=== PATIENT | male | born 1960 | race Caucasian/White ===

== ENCOUNTER 2022-10-09 09:57 | Outpatient (OUT) | payer MEDICAID, SELFPAY | END 2022-10-09 09:58 | disposition home or self-care (01) | PROVIDERS: PCP Family Medicine | DX: Z01.818 Encounter for other preprocedural examination (principal); K42.9 Umbilical hernia without obstruction or gangrene ==

== ENCOUNTER 2022-10-11 10:12 | Day surgery (SDC) | payer MEDICARE, MEDICAID, SELFPAY ==
[2022-10-09 10:27] VITALS: BP 148/103; PULSE 96; RESP 20; TEMP 36.5; O2SAT 95; BMI 24.6
[2022-10-11 10:34] VITALS: BMI 24.5
[2022-10-11 10:43] VITALS: BP 178/97; PULSE 74; RESP 16; TEMP 36.6; O2SAT 98
[2022-10-11] MEDS: LACTATED RINGER'S SOLUTION 1,000 ML 50 ML IV (10:44)
--- NOTE | 2022-10-11 11:36 | PC.NURSE ---
Dr. Martinez was in to see patient and address elevated B/P. After lengthy discussion amongst Dr. Martinez, patient and Dr. Alvarez it was decided to have patient see a PCP prior to surgery to better control his blood pressure. Dr. Alvarez spoke to Dr. Carrizales who agreed to see patient next week as a new patient. Directions and phone number given to patient, as well as directive on what the next steps would be. He is aware that he will need to call Dr. Alvarez's office once seen and treated by Dr. Carrizales in order to get rescheduled.
== END 2022-10-11 11:36 ==
PROVIDERS: PCP Family Medicine; Visit Provider Surgery
PROC: (CPT 49591; principal; 2022-10-11 12:25)
DX: K42.9 Umbilical hernia without obstruction or gangrene (principal); Z53.8 Procedure and treatment not carried out for other reasons; I10 Essential (primary) hypertension; Z79.899 Other long term (current) drug therapy; F17.210 Nicotine dependence, cigarettes, uncomplicated
CPT/HCPCS: 49591

== ENCOUNTER 2022-11-05 15:04 | Outpatient (OUT) | payer MEDICAID, SELFPAY ==
[2022-11-05 11:20] LABS: Chol HDL Ratio 2.8; Cholesterol 219 mg/dL (<=200); HDL Cholesterol 77 mg/dL (40-60); Triglycerides 95 mg/dL (<=150)
[2022-11-05 12:18] LABS: Estimated Average Glucose 120 mg/dL; Glycohemoglobin A1C 5.8 % (4.5-6.2)
== END 2022-11-05 15:05 | disposition home or self-care (01) ==
LOC: LAB 11-06 15:05
PROVIDERS: PCP Internal Medicine; Visit Provider Internal Medicine
DX: Z13.1 Encounter for screening for diabetes mellitus (principal); Z13.220 Encounter for screening for lipoid disorders
CPT/HCPCS: 36415; 80061; 83036

== ENCOUNTER 2022-11-22 10:01 | Outpatient (OUT) | payer MEDICARE, MEDICAID, SELFPAY ==
--- NOTE | 2022-11-22 10:41 | ECG_ITS ---
[facility] Test Date: 2022-11-22 Pat Name: Olu Arzate Department: Room: - Gender: Male Hotel Room Attendant: : 1960 Requested By: Order Number: [id number] Reading MD: JAEL MAC Measurements Intervals Elmo Rate: 80 P: 54 WV: 167 QRS: 41 QRSD: 94 T: 63 QT: 334 QTc: 387 Interpretive Statements SINUS RHYTHM POSSIBLE RIGHT VENTRICULAR CONDUCTION DELAY [RSR (QR) IN V1/V2] No previous ECG available for comparison Electronically Signed On 11-24-2022 18:22:04 EDT by JAEL MAC
[2022-11-22 12:36] LABS: Anion Gap 13.4; BUN Creatinine Ratio 16.4; Calcium 9.6 mg/dL (8.5-10.1); Carbon Dioxide 27.4 mmol/L (21.0-32.0); Chloride 103 mmol/L (98-107); Estimated GFR (African America >60 (>=60); Estimated GFR (Non-African Ame >60 (>=60); Glucose 99 mg/dL (74-106); Potassium 3.8 mmol/L (3.5-5.1); Sodium 140 mmol/L (136-145)
== END 2022-11-22 10:02 | disposition home or self-care (01) ==
LOC: PST 10:01
PROVIDERS: PCP Internal Medicine; Visit Provider Surgery
DX: Z01.810 Encounter for preprocedural cardiovascular examination (principal); Z01.812 Encounter for preprocedural laboratory examination; K42.9 Umbilical hernia without obstruction or gangrene
CPT/HCPCS: 36415; 80048; 93005

== ENCOUNTER 2022-12-03 07:24 | Day surgery (SDC) | payer MEDICARE, MEDICAID, SELFPAY ==
[2022-11-22 10:52] VITALS: BP 126/91; PULSE 99; RESP 20; TEMP 36.5; O2SAT 94; BMI 24.5
[2022-12-03 07:43] VITALS: BP 138/98; PULSE 100; RESP 18; TEMP 36.4; O2SAT 96; BMI 24.1
[2022-12-03] MEDS: LACTATED RINGER'S SOLUTION 1,000 ML 50 ML IV (07:49)
[2022-12-03] MEDS: CEFAZOLIN SODIUM/DEXTROSE,ISO 2 GM/50 ML PIGGYBACK IV (08:20)
[2022-12-03] MEDS: BUPIVACAINE HCL 0.25% PF 25 MG/10 ML VIAL INJ (08:53)
[2022-12-03] MEDS: BUPIVACAINE LIPOSOME/PF 266 MG/13.3 ML VIAL INJ (08:53)
[2022-12-03] MEDS: BUPIVACAINE HCL 0.5% PF 50 MG/10 ML VIAL 20 ML INJ (09:20)
[2022-12-03 10:19] VITALS: BP 153/95; PULSE 84; RESP 13; TEMP 37.2; O2SAT 98
[2022-12-03] MEDS: HYDROCODONE/ACETAMINOPHEN 5-325 MG TABLET 1 TAB PO (10:28)
--- NOTE | 2022-12-03 10:31 | PM.GSPRC ---
Date of procedure: 12/03/22 Indications for Procedure: Patient is a 62-year-old male who was recently evaluated for a symptomatic umbilical hernia. With these findings robotic repair of the hernia with mesh was recommended. The risks benefits options and potential complications of the procedure were discussed in detail with them and they agreed to proceed and consent was signed. Pre-op diagnosis: Umbilical hernia Post-op diagnosis: same Procedure: Robotic repair of umbilical hernia with mesh Anesthesia: STIVENA Surgeon: Himanshu Alvarez Procedure Summary: The patient was brought to the operating room placed in the supine position. Gen. anesthesia was induced the patient was intubated. The abdomen was prepped and draped as a sterile fashion. Preoperative IV antibiotics were given. A site in the left upper quadrant was infiltrated with half percent Marcaine. A small incision was made. A 12 mm port was placed through this incision and advanced into the peritoneal cavity under laparoscopic guidance. The abdomen was then insufflated to 15 mmHg of carbon dioxide. The camera was introduced and safe port site entry was confirmed. Two additional 8 mm robotic ports were placed in the left lateral abdomen and the left lower quadrant following local anesthesia under direct visualization. An additional 8 mm robotic port was threaded through the 12 mm port. At this point the da Galina XI was brought to the field. All ports were docked and instruments introduced in standard fashion. At this point I left the operating table and attended the surgeon's console. The fascial defect was visualized. It was #cm in diameter. Some preperitoneal fat surrounding the defect was cleared circumferentially to allow flat mesh placement using blunt dissection as well as electrocautery. Next the fascial defect was closed with a running suture of 0 - V LOC. A 9 cm round Symbotex mesh was brought onto the field. An 0 Vicryl suture was placed in the center the mesh on the side to be up against the abdominal wall. The mesh was rolled and placed through a port into the peritoneal cavity. A small incision was made near the umbilicus and a suture grasper placed through this into the peritoneal cavity. The suture placed in the mesh was then grasped and pulled externally bringing the mesh to the anterior dome wall. The mesh was then secured to the anterior abdominal wall with 2 running sutures of 2-0 V LOC around the periphery of the mesh.? Following this secure mesh placement was noted with excellent coverage of the prior hernia defect. Hemostasis was also noted. The needles were then removed from the peritoneal cavity. The abdomen was then desufflated and the ports removed. After undocking of the robot. Skin incisions were closed with subcuticular sutures of 4-0 Vicryl. Sterile dressings were applied. Sponge needle and instrument counts were correct at the end of the procedure. The patient tolerated the procedure well and was transferred to the recovery area in stable condition. Estimated blood loss (mL): 3 Specimens: None Complications: No
[2022-12-03 10:45] VITALS: BP 121/80; PULSE 82; RESP 19; O2SAT 93
[2022-12-03 11:21] VITALS: BP 123/82; PULSE 96; RESP 20; O2SAT 92
== END 2022-12-03 11:35 | disposition home or self-care (01) ==
PROVIDERS: PCP Internal Medicine; Visit Provider Surgery
PROC: (CPT 00830; principal; 2022-12-03 08:30)
DX: K42.9 Umbilical hernia without obstruction or gangrene (principal); Z79.899 Other long term (current) drug therapy; F17.210 Nicotine dependence, cigarettes, uncomplicated; F12.90 Cannabis use, unspecified, uncomplicated
CPT/HCPCS: 00830; 49591; 36415; C1781; J2704

== ENCOUNTER 2023-07-19 16:34 | Emergency (ER) | payer MEDICARE, MEDICAID, SELFPAY ==
[2023-07-19 16:40] VITALS: BP 155/93; PULSE 112; RESP 18; TEMP 36.8; O2SAT 96; BMI 22.9
--- NOTE | 2023-07-19 16:44 | CT_ITS ---
[address] [address] Patient Name: CIPRIANO CASTRO MRN: [id number] date: 1960 Sex: M Assigned Patient Location: ED.MAIN Current Patient Location: ED.MAIN Accession/Order Number: [id number] Exam Date: 07/19/2023 18:22 Report Date: 07/19/2023 19:09 At the request of: ANKUSH DUVAL Procedure: CT abdomen pelvis w con EXAMINATION: CT abdomen pelvis w con, 07/19/2023 3:22 PM PDT HISTORY: Abdominal pain COMPARISON: 09/20/2022 TECHNIQUE: CT scan of the abdomen and pelvis was performed with IV contrast. CT dose reduction technique was used, including Automated Exposure Control. FINDINGS: Lung: No significant finding. Liver: No significant finding. Gallbladder: No significant finding. Spleen: No significant finding. Pancreas: No significant finding. Adrenal glands: No significant finding. Kidneys, ureters and bladder: Simple right renal cyst. No hydronephrosis. Mild circumferential bladder wall thickening. Bowel: Severe bowel wall edema, ulceration and evidence of perforation involving the sigmoid colon. Adjacent pericolonic air and fluid collection measuring 5.5 x 4 x 5.2 cm. Prominent stranding involving the mesentery surrounding the sigmoid colon. Remaining sigmoid colon is also edematous in appearance. Inflammatory stranding involves the left distal ureter and bladder wall. Focal peritonitis is also noted. Normal appendix. Peritoneum/retroperitoneum: As above. Lymph nodes: No significant finding. Vessels: No significant finding. Body wall: No significant finding. Reproductive: Prostatomegaly. Bones: No significant finding. CT/CT abdomen pelvis w con IMPRESSION: Perforation of the sigmoid colon with pericolonic wall abscess measuring 5.5 x 4 x 5.2 cm. The entire sigmoid colon is moderately edematous and there are moderate to severe pericolonic inflammatory changes. Focal peritonitis. Underlying ulcerative mass not excluded. Likely secondary mild left ureteritis and cystitis. Electronically authenticated by: MARLINE SAMUEL Date: 07/19/2023 19:09
--- NOTE | 2023-07-19 16:53 | ED_ITS ---
Documented by User: MARCO A Becerra 07/19/23 17:53 HPI - General Adult General Chief complaint: Abdominal Pain Stated complaint: abdominal pain Time Seen by Provider: 07/19/23 16:38 Source: patient Mode of arrival: walk-in Limitations: no limitations History of Present Illness HPI narrative: Patient is a 63-year-old male who presents to the emergency department for increasing right lower quadrant pain throughout the day today. He has had a previous hernia repair, he had a bilateral inguinal and ventral hernia repair last year at this facility. He states he has pain to the bilateral inguinal surgical sites chronically. He also has a history of diverticulitis although he has never needed surgery for this before. Today he has had no fevers. He has had mild nausea but no vomiting. He has had stools 2-3 times a day for the last several days. He states for several months he has had ongoing issues with intermittent pain to the lower abdomen. He states today the pain seems to radiate to the right thigh. No medications taken prior to arrival. Related Data Home Medications ?Medication ?Instructions ?Recorded ?Confirmed amlodipine 10 mg tablet 10 mg PO DAILY 11/22/22 07/19/23 Allergies Allergy/AdvReac Type Severity Reaction Status Date / Time No Known Drug Allergies Allergy Verified 12/03/22 07:50 Review of Systems ROS Constitutional Denies: fever or chills Ears, nose, mouth, and throat Denies: throat pain or nasal congestion Cardiovascular Denies: chest pain Respiratory Denies: shortness of breath Gastrointestinal Reports: abdominal pain, nausea and diarrhea; Denies: vomiting Genitourinary Denies: painful urination Musculoskeletal Denies: back pain or neck pain Integumentary/Breast Denies: rash Endocrine Denies: excessive urination Hematologic/Lymphatic Denies: easy bruising or easy bleeding [facility] Medical History (Updated 07/19/23 @ 17:53 by MARCO A Becerra) Hypertension ?I10 - Essential (primary) hypertension (ICD-10) Hemorrhoids ?K64.9 - Unspecified hemorrhoids (ICD-10) Nocturia ?R35.1 - Nocturia (ICD-10) Rectal bleeding ?K62.5 - Hemorrhage of anus and rectum (ICD-10) Neck pain ?M54.2 - Cervicalgia (ICD-10) DDD (degenerative disc disease) Back pain ?M54.9 - Dorsalgia, unspecified (ICD-10) Bronchitis ?J40 - Bronchitis, not specified as acute or chronic (ICD-10) Heartburn ?R12 - Heartburn (ICD-10) Umbilical hernia ?K42.9 - Umbilical hernia without obstruction or gangrene (ICD-10) Surgical History (Updated 11/22/22 @ 10:23 by Haley Rai RN) History of colonoscopy ?Z98.890 - Other specified postprocedural states (ICD-10) History of hernia repair ?Z98.890 - Other specified postprocedural states (ICD-10) ?Z87.19 - Personal history of other diseases of the digestive system (ICD-10) Family History (Updated 10/09/22 @ 10:31 by Allison Newsome NP) Other Family history of diabetes mellitus Social History Within the past year, how often did you have a drink containing alcohol: never Score interpretation: A score less than 4 is consistent with normal alcohol consumption. Non-prescribed substance use: cannabis (any form) Highest level of school completed/degree received: high school graduate Exam Narrative Exam Narrative: Gen.: Awake, alert, in no distress Head: Normocephalic, atraumatic ENT: Moist mucous membranes Respiratory: No respiratory distress, lungs clear bilaterally Cardio: Regular rate and rhythm Gastrointestinal: Abdomen is soft, nondistended and nontender to palpation; Umbilical incision and bilateral inguinal incisions are well-healed, no raised or bulging areas palpated. No McBurney's point tenderness on exam Extremities: Moves extremities equally Psych: Normal mood and affect Neuro: No focal neuro deficit Skin: Warm, dry, intact Constitutional Vital Signs, click to edit/add: Last Vital Signs Temp 98.2 F 07/19/23 16:40 Pulse 112 H 07/19/23 16:40 Resp 18 07/19/23 16:40 BP 155/93 H 07/19/23 16:40 Pulse Ox 96 07/19/23 16:40 O2 Del Method Room Air 07/19/23 16:40 Course Vital Signs Vital signs: Vital Signs Temperature 98.2 F 07/19/23 16:40 Pulse Rate 112 H 07/19/23 16:40 Respiratory Rate 18 07/19/23 16:40 Blood Pressure 155/93 H 07/19/23 16:40 Pulse Oximetry 96 07/19/23 16:40 Oxygen Delivery Method Room Air 07/19/23 16:40 Temperature 98.2 F 07/19/23 16:40 Pulse Rate 112 H 07/19/23 16:40 Respiratory Rate 18 07/19/23 16:40 Blood Pressure 155/93 H 07/19/23 16:40 Pulse Oximetry 96 07/19/23 16:40 Oxygen Delivery Method Room Air 07/19/23 16:40 Medical Decision Making MDM Narrative Medical decision making narrative: 1800: Patient given IV fluids, Levsin, Toradol, Zofran. CT was ordered with IV and oral contrast. Labs show leukocytosis but no other significant abnormalities. Urine specimen is unremarkable. Case is turned over to attending physician at this time for disposition. Medical Records Medical records reviewed: Yes I reviewed the patient's medical records Lab Data Lab results reviewed: Yes I reviewed the patient's lab results Labs: Lab Results 07/19/23 07/19/23 Range/Units 16:48 16:54 WBC 19.1 H (4.0-11.0) 10^3/uL RBC 5.31 (4.70-6.10) 10^6/uL Hgb 16.5 (14.0-18.0) g/dL Hct 50.1 (42.0-54.0) % MCV 94.4 H (80.0-94.0) fL MCH 31.1 (25.9-34.0) pg MCHC 32.9 (29.9-35.2) g/dL RDW 13.6 (11.0-15.0) % Plt Count 280 (150-450) 10^3/uL MPV 10.1 (9.5-13.5) fL Seg Neuts % (Manual) 80.0 Lymphocytes % (Manual) 10.0 L (20.5-60.0) % Monocytes % (Manual) 10.0 (1.7-12.0) % Eosinophils % (Manual) 0.0 L (0.9-7.0) % Basophils % (Manual) 0.0 L (0.2-2.0) % Neutrophils # (Manual) 15.28 H (1.4-6.5) 10^3/uL Lymphocytes # (Manual) 1.91 (1.20-3.80) 10^3/uL Monocytes # (Manual) 1.91 H (0.30-0.80) 10^3/uL Eosinophils # (Manual) 0.00 (0.00-0.70) 10^3/uL Basophils # (Manual) 0.00 (0.00-0.10) 10^3/uL Sodium 139 (136-145) mmol/L Potassium 3.5 (3.5-5.1) mmol/L Chloride 100 (98-107) mmol/L Carbon Dioxide 26.0 (21.0-32.0) mmol/L Anion Gap 16.5 BUN 18.0 (7.0-18.0) mg/dL Creatinine 1.20 (0.70-1.30) mg/dL Est GFR ( Amer) >60 (>=60) Est GFR (Non-Af Amer) >60 (>=60) BUN/Creatinine Ratio 15.0 Glucose 159 H (74-106) mg/dL Lactate 1.8 (0.4-2.0) mmol/L Calcium 9.6 (8.5-10.1) mg/dL Total Bilirubin 0.4 (0.2-1.0) mg/dL AST 16 (15-37) U/L ALT 26 (16-63) U/L Alkaline Phosphatase 90 (46-116) U/L Total Protein 7.5 (6.4-8.2) g/dL Albumin 3.8 (3.4-5.0) g/dL Globulin 3.7 g/dL Albumin/Globulin Ratio 1.0 Lipase 47.0 (16.0-77.0) U/L Urine Color Lt. yellow (YELLOW) Urine Clarity Clear (CLEAR) Urine pH 5.5 (5.0-9.0) Ur Specific [employer] 1.025 (1.005-1.025) Urine Protein Negative (NEG/TRACE) mg/dL Urine Glucose (UA) 100 A (NEGATIVE) mg/dL Urine Ketones Negative (NEGATIVE) mg/dL Urine Occult Blood Moderate A (NEGATIVE) Urine Nitrite Negative (NEGATIVE) Urine Bilirubin Negative (NEGATIVE) Urine Urobilinogen 0.2 (0.2-1.0) EU/dL Ur Leukocyte Esterase Negative (NEGATIVE) Urine RBC 2-5 A (0-2) #/HPF Urine WBC None seen (NONE SEEN) #/HPF Ur Squamous Epith Cells Rare (NONE/RARE) #/LPF Urine Crystals None seen (None Seen) #/HPF Urine Bacteria Trace A (NONE SEEN) #/HPF Urine Casts None seen (NONE SEEN) #/LPF Urine Mucus Trace A (NONE SEEN) Ur Culture Indicated? No Discharge Plan Discharge Stand Alone Forms: Portal Instructions Chief Complaint: Abdominal Pain Clinical Impression: Abdominal pain Patient Disposition: Still a Patient Prescriptions / Home Meds: No Action amlodipine 10 mg tablet 10 mg PO DAILY Print Language: Upper Sorbian Referrals: Shaikh Manrique MD [Primary Care Provider] - 1 week Documented by User: Dandre Busch 07/19/23 19:04 HPI - General Adult General Chief complaint: Abdominal Pain Stated complaint: abdominal pain Time Seen by Provider: 07/19/23 16:38 Related Data Home Medications ?Medication ?Instructions ?Recorded ?Confirmed amlodipine 10 mg tablet 10 mg PO DAILY 11/22/22 07/19/23 Allergies Allergy/AdvReac Type Severity Reaction Status Date / Time No Known Drug Allergies Allergy Verified 12/03/22 07:50 [facility] Medical History (Updated 07/19/23 @ 17:53 by MARCO A Becerra) Hypertension ?I10 - Essential (primary) hypertension (ICD-10) Hemorrhoids ?K64.9 - Unspecified hemorrhoids (ICD-10) Nocturia ?R35.1 - Nocturia (ICD-10) Rectal bleeding ?K62.5 - Hemorrhage of anus and rectum (ICD-10) Neck pain ?M54.2 - Cervicalgia (ICD-10) DDD (degenerative disc disease) Back pain ?M54.9 - Dorsalgia, unspecified (ICD-10) Bronchitis ?J40 - Bronchitis, not specified as acute or chronic (ICD-10) Heartburn ?R12 - Heartburn (ICD-10) Umbilical hernia ?K42.9 - Umbilical hernia without obstruction or gangrene (ICD-10) Surgical History (Updated 11/22/22 @ 10:23 by Haley Rai RN) History of colonoscopy ?Z98.890 - Other specified postprocedural states (ICD-10) History of hernia repair ?Z98.890 - Other specified postprocedural states (ICD-10) ?Z87.19 - Personal history of other diseases of the digestive system (ICD-10) Family History (Updated 10/09/22 @ 10:31 by Allison Newsome NP) Other Family history of diabetes mellitus Social History Within the past year, how often did you have a drink containing alcohol: never Score interpretation: A score less than 4 is consistent with normal alcohol consumption. Non-prescribed substance use: cannabis (any form) Highest level of school completed/degree received: high school graduate Exam Constitutional Vital Signs, click to edit/add: Last Vital Signs Temp 98.2 F 07/19/23 16:40 Pulse 112 H 07/19/23 16:40 Resp 18 07/19/23 16:40 BP 155/93 H 07/19/23 16:40 Pulse Ox 96 07/19/23 16:40 O2 Del Method Room Air 07/19/23 16:40 Course Vital Signs Vital signs: Vital Signs Temperature 98.2 F 07/19/23 16:40 Pulse Rate 112 H 07/19/23 16:40 Respiratory Rate 18 07/19/23 16:40 Blood Pressure 155/93 H 07/19/23 16:40 Pulse Oximetry 96 07/19/23 16:40 Oxygen Delivery Method Room Air 07/19/23 16:40 Temperature 98.2 F 07/19/23 16:40 Pulse Rate 112 H 07/19/23 16:40 Respiratory Rate 18 07/19/23 16:40 Blood Pressure 155/93 H 07/19/23 16:40 Pulse Oximetry 96 07/19/23 16:40 Oxygen Delivery Method Room Air 07/19/23 16:40 Medical Decision Making MDM Narrative Medical decision making narrative: 1800: Patient given IV fluids, Levsin, Toradol, Zofran. CT was ordered with IV and oral contrast. Labs show leukocytosis but no other significant abnormalities. Urine specimen is unremarkable. Case is turned over to attending physician at this time for disposition. Dr Kaba and I discussed this patient's case. I suspect that the patient has diverticulitis and will be able to be discharged home with antibiotics - but Dr Kaba will meet with the patient after CT reported and determine final disposition. Lab Data Labs: Lab Results 07/19/23 07/19/23 Range/Units 16:48 16:54 WBC 19.1 H (4.0-11.0) 10^3/uL RBC 5.31 (4.70-6.10) 10^6/uL Hgb 16.5 (14.0-18.0) g/dL Hct 50.1 (42.0-54.0) % MCV 94.4 H (80.0-94.0) fL MCH 31.1 (25.9-34.0) pg MCHC 32.9 (29.9-35.2) g/dL RDW 13.6 (11.0-15.0) % Plt Count 280 (150-450) 10^3/uL MPV 10.1 (9.5-13.5) fL Seg Neuts % (Manual) 80.0 Lymphocytes % (Manual) 10.0 L (20.5-60.0) % Monocytes % (Manual) 10.0 (1.7-12.0) % Eosinophils % (Manual) 0.0 L (0.9-7.0) % Basophils % (Manual) 0.0 L (0.2-2.0) % Neutrophils # (Manual) 15.28 H (1.4-6.5) 10^3/uL Lymphocytes # (Manual) 1.91 (1.20-3.80) 10^3/uL Monocytes # (Manual) 1.91 H (0.30-0.80) 10^3/uL Eosinophils # (Manual) 0.00 (0.00-0.70) 10^3/uL Basophils # (Manual) 0.00 (0.00-0.10) 10^3/uL Sodium 139 (136-145) mmol/L Potassium 3.5 (3.5-5.1) mmol/L Chloride 100 (98-107) mmol/L Carbon Dioxide 26.0 (21.0-32.0) mmol/L Anion Gap 16.5 BUN 18.0 (7.0-18.0) mg/dL Creatinine 1.20 (0.70-1.30) mg/dL Est GFR ( Amer) >60 (>=60) Est GFR (Non-Af Amer) >60 (>=60) BUN/Creatinine Ratio 15.0 Glucose 159 H (74-106) mg/dL Lactate 1.8 (0.4-2.0) mmol/L Calcium 9.6 (8.5-10.1) mg/dL Total Bilirubin 0.4 (0.2-1.0) mg/dL AST 16 (15-37) U/L ALT 26 (16-63) U/L Alkaline Phosphatase 90 (46-116) U/L Total Protein 7.5 (6.4-8.2) g/dL Albumin 3.8 (3.4-5.0) g/dL Globulin 3.7 g/dL Albumin/Globulin Ratio 1.0 Lipase 47.0 (16.0-77.0) U/L Urine Color Lt. yellow (YELLOW) Urine Clarity Clear (CLEAR) Urine pH 5.5 (5.0-9.0) Ur Specific [employer] 1.025 (1.005-1.025) Urine Protein Negative (NEG/TRACE) mg/dL Urine Glucose (UA) 100 A (NEGATIVE) mg/dL Urine Ketones Negative (NEGATIVE) mg/dL Urine Occult Blood Moderate A (NEGATIVE) Urine Nitrite Negative (NEGATIVE) Urine Bilirubin Negative (NEGATIVE) Urine Urobilinogen 0.2 (0.2-1.0) EU/dL Ur Leukocyte Esterase Negative (NEGATIVE) Urine RBC 2-5 A (0-2) #/HPF Urine WBC None seen (NONE SEEN) #/HPF Ur Squamous Epith Cells Rare (NONE/RARE) #/LPF Urine Crystals None seen (None Seen) #/HPF Urine Bacteria Trace A (NONE SEEN) #/HPF Urine Casts None seen (NONE SEEN) #/LPF Urine Mucus Trace A (NONE SEEN) Ur Culture Indicated? No Discharge Plan Discharge Stand Alone Forms: Portal Instructions Chief Complaint: Abdominal Pain Clinical Impression: Abdominal pain Patient Disposition: Still a Patient Prescriptions / Home Meds: No Action amlodipine 10 mg tablet 10 mg PO DAILY Print Language: Upper Sorbian Referrals: Shaikh Manrique MD [Primary Care Provider] - 1 week
[2023-07-19 17:01] LABS: Hematocrit 50.1 % (42.0-54.0); Hemoglobin 16.5 g/dL (14.0-18.0); Mean Corpuscular HGB Conc 32.9 g/dL (29.9-35.2); Mean Corpuscular Hemoglobin 31.1 pg (25.9-34.0); Mean Corpuscular Volume 94.4 fL (80.0-94.0); Mean Platelet Volume 10.1 fL (9.5-13.5); Platelet Count 280 10^3/uL (150-450); Red Blood Count 5.31 10^6/uL (4.70-6.10); Red Cell Distribution Width 13.6 % (11.0-15.0); White Blood Count 19.1 10^3/uL (4.0-11.0)
[2023-07-19 17:02] LABS: Bilirubin Urine NEGATIVE (NEGATIVE); Blood Urine MODERATE (NEGATIVE); Clarity Urine CLEAR (CLEAR); Color Urine LT. YELLOW (YELLOW); Glucose Urine UA 100 mg/dL (NEGATIVE); Ketones Urine NEGATIVE (NEGATIVE); Leukocyte Esterase Urine NEGATIVE (NEGATIVE); Nitrite Urine NEGATIVE (NEGATIVE); Protein Urine NEGATIVE (NEG/TRACE); Specific Gravity Urine 1.025 (1.005-1.025); Urobilinogen Urine 0.2 EU/dL (0.2-1.0); pH Urine 5.5 (5.0-9.0)
[2023-07-19 17:04] LABS: Urine Microscopic Indicated YES
[2023-07-19] MEDS: 0.9 % SODIUM CHLORIDE 1,000 ML 1000 ML IV (17:10)
[2023-07-19] MEDS: KETOROLAC TROMETHAMINE 30 MG/ML VIAL IVP (17:11)
[2023-07-19] MEDS: ONDANSETRON PF 4 MG/2 ML VIAL IV (17:11)
[2023-07-19 17:12] LABS: Bacteria Urine TRACE #/HPF (NONE SEEN); Cast Seen? NONE SEEN #/LPF (NONE SEEN); Crystals Seen? None Seen #/HPF (None Seen); Mucus Urine TRACE (NONE SEEN); Squamous Epithelial Cell Urine RARE #/LPF (NONE/RARE); Urine Culture Indicated NO; WBC Urine NONE SEEN #/HPF (NONE SEEN)
[2023-07-19] MEDS: HYOSCYAMINE SULFATE 0.125 MG TAB.SUBL SL (17:12)
[2023-07-19 17:16] LABS: Alanine Aminotransferase 26 U/L (16-63); Albumin Level 3.8 g/dL (3.4-5.0); Alkaline Phosphatase 90 U/L (46-116); Anion Gap 16.5; Aspartate Amino Transferase 16 U/L (15-37); Bilirubin Total 0.4 mg/dL (0.2-1.0); Calcium 9.6 mg/dL (8.5-10.1); Chloride 100 mmol/L (98-107); Estimated GFR (African America >60 (>=60); Estimated GFR (Non-African Ame >60 (>=60); Globulin 3.7 g/dL; Glucose 159 mg/dL (74-106); Potassium 3.5 mmol/L (3.5-5.1); Sodium 139 mmol/L (136-145); Total Protein 7.5 g/dL (6.4-8.2)
[2023-07-19 17:18] LABS: Lactate/Lactic Acid 1.8 mmol/L (0.4-2.0)
[2023-07-19 17:23] LABS: Lymphocytes Absolute Manual 1.91 10^3/uL (1.20-3.80); Monocytes Absolute Manual 1.91 10^3/uL (0.30-0.80); Segmented Neut Absolute Manual 15.28 10^3/uL (1.4-6.5)
[2023-07-19] MEDS: 0.9 % SODIUM CHLORIDE 1,000 ML 999 ML IV (20:01)
[2023-07-19] MEDS: PIPERACILLIN SODIUM/TAZOBACTAM 3.375 GM in 0.9 % SODIUM CHLORIDE 50 ML IV (20:03)
[2023-07-19 20:14] VITALS: BP 140/92; PULSE 108; RESP 18; O2SAT 95
[2023-07-19 21:33] VITALS: BP 134/98; PULSE 119; RESP 18; O2SAT 94
== END 2023-07-19 21:45 | disposition short-term general hospital (02) ==
PROVIDERS: Physician Assistant; Emergency Provider Internal Medicine; PCP Internal Medicine
DX: K63.0 Abscess of intestine (principal); I10 Essential (primary) hypertension; Z79.899 Other long term (current) drug therapy; Z98.890 Other specified postprocedural states; F12.90 Cannabis use, unspecified, uncomplicated
CPT/HCPCS: 36415; 74177; 80053; 81001; 83605; 83690; 85007; 85027; 96365; 96375; 99285; Q9967

== ENCOUNTER 2023-10-09 11:37 | Emergency (ER) | payer MEDICARE, MEDICAID, SELFPAY ==
[2023-10-09 11:42] VITALS: BP 151/100; PULSE 99; TEMP 36.5; O2SAT 96; BMI 24.4
[2023-10-09 12:34] LABS: Bilirubin Urine NEGATIVE (NEGATIVE); Blood Urine LARGE (NEGATIVE); Clarity Urine SL CLOUDY (CLEAR); Color Urine LT. YELLOW (YELLOW); Glucose Urine UA NEGATIVE (NEGATIVE); Ketones Urine NEGATIVE (NEGATIVE); Leukocyte Esterase Urine MODERATE (NEGATIVE); Nitrite Urine NEGATIVE (NEGATIVE); Protein Urine 30 mg/dL (NEG/TRACE); Specific Gravity Urine 1.015 (1.005-1.025); Urobilinogen Urine 0.2 EU/dL (0.2-1.0)
[2023-10-09 12:47] LABS: WBC Urine >100 #/HPF (NONE SEEN)
--- NOTE | 2023-10-09 12:47 | ED_ITS ---
HPI HPI - General Adult General Chief complaint: Urogenital-Male Stated complaint: UTI SYMPTOMS Time Seen by Provider: 10/09/23 11:43 Source: patient Mode of arrival: walk-in Limitations: no limitations History of Present Illness HPI narrative: 63-year-old male to the emergency department with chief complaint of dark- colored urine, dysuria, urinary frequency. Symptoms began over the last 48 hours. Denies any back pain. Denies any abdominal pain. Denies any fever, sweats, chills. He is concerned he has a urinary tract infection. Related Data Home Medications ?Medication ?Instructions ?Recorded ?Confirmed amlodipine 10 mg tablet 10 mg PO DAILY 11/22/22 10/09/23 sennosides 8.6 mg tablet (Senna 8.6 mg PO Q12H 10/09/23 10/09/23 Lax) Previous Rx's ?Medication ?Instructions ?Recorded cephalexin 500 mg capsule 500 mg PO BID 7 days #14 caps 10/09/23 Allergies Allergy/AdvReac Type Severity Reaction Status Date / Time No Known Drug Allergies Allergy Verified 12/03/22 07:50 Opioid HPI Opioid Management Most Recent Opioid Data: Last Pain Scale 6 07/19/23 17:11 Review of Systems ROS Status of ROS 10 or more systems reviewed and unremark able except as noted in history and below PFSH PFSH Medical History (Updated 10/09/23 @ 12:46 by Shailesh Roberts MD) Hypertension ?I10 - Essential (primary) hypertension (ICD-10) Hemorrhoids ?K64.9 - Unspecified hemorrhoids (ICD-10) Nocturia ?R35.1 - Nocturia (ICD-10) Rectal bleeding ?K62.5 - Hemorrhage of anus and rectum (ICD-10) Neck pain ?M54.2 - Cervicalgia (ICD-10) DDD (degenerative disc disease) Back pain ?M54.9 - Dorsalgia, unspecified (ICD-10) Bronchitis ?J40 - Bronchitis, not specified as acute or chronic (ICD-10) Heartburn ?R12 - Heartburn (ICD-10) Umbilical hernia ?K42.9 - Umbilical hernia without obstruction or gangrene (ICD-10) Surgical History (Updated 11/22/22 @ 10:23 by Haley Rai RN) History of colonoscopy ?Z98.890 - Other specified postprocedural states (ICD-10) History of hernia repair ?Z98.890 - Other specified postprocedural states (ICD-10) ?Z87.19 - Personal history of other diseases of the digestive system (ICD-10) Family History (Updated 10/09/22 @ 10:31 by Allison Newsome NP) Other Family history of diabetes mellitus Social History Within the past year, how often did you have a drink containing alcohol: never Score interpretation: A score less than 4 is consistent with normal alcohol consumption. Non-prescribed substance use: cannabis (any form) Highest level of school completed/degree received: high school graduate Exam Narrative Exam Narrative: VITALS: I have reviewed the triage vital signs. GENERAL: Well developed, well appearing adult in no acute distress. NEURO: Alert and oriented. Moves all extremities. Face is symmetric and expressive. EYES: PERRL. No scleral icterus or conjunctival injection. No discharge. HENT: Normocephalic, atraumatic. Hearing is grossly intact. Nares grossly patent and without discharge. Mucous membranes moist. NECK: No JVD. Patient moves neck without restriction. CARDIO: Rhythm regular. Normal rate. No murmur, rub, or gallop. Pulses equal bilaterally in the upper and lower extremity. No lower extremity edema. PULM: Lungs clear to auscultation in all smith. No wheezes, rales, or rhonchi. No conversational dyspnea. No splinting, stridor, or accessory muscle use. GI/: Abdomen is soft and non-tender. Normoactive bowel sounds. Healthy appearing colostomy. EXTREMITIES: Symmetric muscle bulk. No joint swelling. No clubbing, cyanosis, or deformity. SKIN: Warm and dry. Normal turgor. No rash or lesions appreciated. PSYCH: Mood, affect, and interaction is appropriate to the setting. Constitutional Vital Signs, click to edit/add: Last Vital Signs Temp 97.7 F 10/09/23 11:42 Pulse 99 H 10/09/23 11:42 Resp 18 10/09/23 11:42 BP 151/100 H 10/09/23 11:42 Pulse Ox 96 10/09/23 11:42 Course Vital Signs Vital signs: Vital Signs Temperature 97.7 F 06/13/24 11:42 Pulse Rate 99 H 10/09/23 11:42 Respiratory Rate 18 10/09/23 11:42 Blood Pressure 151/100 H 10/09/23 11:42 Pulse Oximetry 96 10/09/23 11:42 Temperature 97.7 F 10/09/23 11:42 Pulse Rate 99 H 10/09/23 11:42 Respiratory Rate 18 10/09/23 11:42 Blood Pressure 151/100 H 10/09/23 11:42 Pulse Oximetry 96 10/09/23 11:42 Medical Decision Making [facility] Narrative Medical decision making narrative: Well-appearing 63-year-old male to the emergency department chief complaint of hematuria, dysuria. Vital stable, the patient is afebrile. No abdominal pain or symptoms to suggest urinary tract obstruction. Urinalysis with moderate leuk esterase, there is significant blood. Based on previous urinalysis there patient was also hematuria noted. She has had no workup for this persistent hematuria. Patient should receive evaluation for this. Will treat his suspected urinary tract infection with Keflex. Will give urology referral for persistent hematuria. We did call and attempt to make a nonurgent appointment for the patient at his own request however the clinic denied and reported the patient should call. Medical Records Medical records reviewed: Yes I reviewed the patient's medical records Lab Data Lab results reviewed: Yes I reviewed the patient's lab results Labs: Lab Results 10/09/23 Range/Units 12:05 Urine Color Lt. yellow (YELLOW) Urine Clarity Sl cloudy (CLEAR) Urine pH 7.0 (5.0-9.0) Ur Specific [place] 1.015 (1.005-1.025) Urine Protein 30 A (NEG/TRACE) mg/dL Urine Glucose (UA) Negative (NEGATIVE) mg/dL Urine Ketones Negative (NEGATIVE) mg/dL Urine Occult Blood Large A (NEGATIVE) Urine Nitrite Negative (NEGATIVE) Urine Bilirubin Negative (NEGATIVE) Urine Urobilinogen 0.2 (0.2-1.0) EU/dL Ur Leukocyte Esterase Moderate A (NEGATIVE) Discharge Plan Discharge Stand Alone Forms: Portal Instructions Chief Complaint: Urogenital-Male Clinical Impression: Hematuria, Acute UTI Patient Disposition: Home, Self-Care Time of Disposition Decision: 12:46 Condition: Good Prescriptions / Home Meds: New cephalexin 500 mg capsule 500 mg PO BID 7 Days Qty: 14 0RF No Action amlodipine 10 mg tablet 10 mg PO DAILY sennosides [Senna Lax] 8.6 mg tablet 8.6 mg PO Q12H Print Language: [place] Instructions: Urinary Tract Infection in Men (ED), Hematuria (ED) Referrals: Marcus Rao MD [Physician] - 1 week (Follow-up to discuss blood in your urine. ) Shaikh Manrique MD [Primary Care Provider] - 1 week
[2023-10-09 12:49] LABS: Bacteria Urine LARGE #/HPF (NONE SEEN); Mucus Urine MODERATE (NONE SEEN)
[2023-10-09 12:50] LABS: Squamous Epithelial Cell Urine MODERATE #/LPF (NONE/RARE)
[2023-10-09 12:51] LABS: Cast Seen? NONE SEEN #/LPF (NONE SEEN); Crystals Seen? None Seen #/HPF (None Seen); Urine Culture Indicated YES
--- NOTE | 2023-10-11 14:35 | PC.NURSE ---
10/11/23 pt urine c+s from 10/09/[address] jara. nno at this time. Lula Foster RN
== END 2023-10-09 13:12 | disposition home or self-care (01) ==
PROVIDERS: Emergency Provider Student in an Organized Health Care Education/Training Program; PCP Internal Medicine
DX: N39.0 Urinary tract infection, site not specified (principal); R31.9 Hematuria, unspecified
CPT/HCPCS: 81001; 87086; 87150; 87186; 99283

== ENCOUNTER 2024-08-05 09:32 | Outpatient (OUT) | payer MEDICARE, MEDICAID, SELFPAY ==
--- OUTSIDE RECORDS SUMMARY | 2024-08-05 09:53 | XMS_ITS | CCD ---
Author Organization [facility] CliniSynd Care Team Providers Care Medical Staff Director Name Role Phone HOUSE, DR LEE Primary Care Unavailable MUKUND ., MARCO A LECHUGA Consulting Unavailabl e DIAB ., ROXANNE Attending Unavailable DIAB ., ROXANNE Admitting Unavailable JAHAIRA LUNDBERG Consulting Unavailable NO PCP, NO PCP Primary Care Unavailable Gi John Attending Unavailable All SANCHEZ, Varghese Primary Care Provider [phone] Lakia PERKINS, Frida Unavailable CRUZ YOUSIF Attending Unavailab le NO PCP, NO PCP Primary Care Unavailable EVAN LOUIS Consulting Unavailable EVAN LOUIS Admitting Unavailable KALEIGH JOSE Attending Unavailable VARGHESE DEL CID Referring Unavailable VARGHESE DEL CID Primary Care Unavailable EVAN LOUIS Attending Unavailable VARGHESE DEL CID Referring Unavailable VARGHESE DEL CID Primary Care Unavailable ABDIRASHID CAVAZOS Attending Unavailable VARGHESE DEL CID Referring Unavailable VARGHESE DEL CID Primary Care Unavailable YARA, ABDIRASHID M Referring Unavailable VARGHESE DEL CID Primary Care Unavailable YARA, ABDIRASHID M Attending Unavailable YARA, ABDIRASHID M Referring Unavailable VARGHESE DEL CID Primary Care Unavailable BOSIO, ABDIRASHID M Referring Unavailable DEWAYNEEREVARGHESE Saldivar Primary Care Unavailable BOSIO, ABDIRASHID M Admitting Unavailable BOSIO, ABDIRASHID M Attending Unavailable BOSIO, ABDIRASHID M Referring Unavailable VARGHESE DEL CID Primary Care Unavailable BOSIO, ABDIRASHID M Attending Unavailable BOSIO, ABDIRASHID M Referring Unavailable SHAIKH MANRIQUE Primary Care Unavailable ALEX GALE Attending Unavailable SHAIKH MANRIQUE Primary Care Unavailable BOSNILAM, ABDIRASHID M Attending Unavailable VARGHESE DEL CID Referring Unavailable SHAIKH MANRIQUE Primary Care Unavailable BOSIO, ABDIRASHID M Referring Unavailable FRIDA DORMAN Primary Care Unavaila ble BOSIO, ABDIRASHID M Admitting Unavailable BOSIO, ABDIRASHID M Attending Unavailable SHAIKH MANRIQUE Primary Care Unavailable VAL TIWARI Attending Unavailable FRIDA DORMAN Primary Care Unavaila marcella Del Cid MD, Varghese Primary Care Provider Varghese Del Cid MD Primary Care Provider Lakia FIRE OFFICER-CLAY PIGEON SETTER, Frida Tolentino Primary Care Pr ovider Hilaria SANCHEZ, Primary Care Provider Lakia HUMAN RESOURCES PROFESSIONAL, Frida Unavailable SHAIKH MANRIQUE Attending Unavailable HILARIA, Attending Unavailable HILARIA, Attending Unavailable HILARIA, Attending Unavailable LAKIA, FRIDA Attending Unavailramy DORMAN, FRIDA Attending Unavailabl e YISSEL AREVALO Attending Unavailable Medications Current Medications Medication Drug Class(es) Dates Sig (Normalized) Sig (Original) acetaminophen 500 mg oral tablet (9 sources) Start: 07-27-19 24 take 2 tablets by mouth every six hours acetaminophen (TYLENOL EXTRA STRENGTH) 500 mg tablet Indications: fever , pain Take 2 tablets (1,000 mg total) by mouth every 6 (six) hours Indications: fever, pain. 30 tablet 07/27/2023 Active amLODIPine 10 mg oral tablet (20 sources) Dihydropyridine Calcium Channel Jeri Start: 11-25-19 24 End: 10-04-19 25 take 1 tablet by mouth once daily amLODIPine (Norvasc) 10 MG tablet Indications: Primary hypertension (CMS/HCC) Take 1 tablet (10 mg) by mouth Daily 90 tablet 1 04/06/2024 10/03/2024 Active amoxicillin 875 mg / clavulanate 125 mg oral tablet (2 sources) Penicillin-class Antibacterial Start: 05-03-19 25 End: 05-13-19 25 take 1 tablet by mouth in the morning amoxicillin-clavulana te (Augmentin) 875-125 MG tablet Indications: Upper respiratory tract infection, unspecified type Take 1 tablet (875 mg) by mouth in the morning and 1 tablet (875 mg) before bedtime. Do all this for 10 days. 20 tablet 05/03/2024 05/13/2024 Active fluticasone propionate 0.05 mg/actuat metered dose nasal spray (12 sources) Corticosteroid Start: 02-05-20 End: 05-03-19 take 1-2 spray(s) nasal route once daily fluticasone (Flonase) 50 MCG/ACT nasal spray Indications: Viral URI Administer 1-2 sprays into each nostril Daily Shake gently. Before first use, prime pump. After use, clean tip and replace cap. 16 g 2 05/03/2024 05/03/2025 Active methylPREDNISolone (2 sources) Corticosteroid Start: 05-03-19 End: 05-10-19 25 methylPREDNISolone (Medrol Dospak) 4 MG tablets Indications: Upper respiratory tract infection, unspecified type Follow schedule on package instructions 21 tablet 05/03/2024 05/10/2024 Active sennosides, mcfp 8.6 mg oral tablet (18 sources) Start: 10-21-19 End: 08-04-19 take 2 tablets by mouth in the morning senna (Senokot) 8.6 MG tablet Indications: Chronic idiopathic constipation Take 2 tablets (17.2 mg) by mouth in the morning and 2 tablets (17.2 mg) before bedtime. 360 tablet 1 02/05/2024 08/03/2024 Active Start: 07-26-2023 End: 08-09-2023 take 1 tablet by mouth in the morning, then take 1 tablet by mouth at bedtime senna (SENOKOT) 8.6 mg tablet Take 1 tablet (8.6 mg total) by mouth in the morning and 1 tablet (8.6 mg total) before bedtime. Do all this for 14 days. 28 tablet 07/26/2023 08/09/2023 Active Completed/Discontinued Medications Medication Drug Class(es) Dates Sig (Normalized) Sig (Original) oxyCODONE hydrochloride 5 mg oral tablet (7 sources) Opioid Agonist Start: 07-26-2023 End: 12-26-2023 take 1 tablet by mouth every six hours as needed for pain oxyCODONE (ROXICODONE) 5 mg immediate release tablet Indications: Post-op pain Take 1 tablet (5 mg total) by mouth every 6 (six) hours as needed for pain for up to 12 doses. Max Daily Amount: 20 mg 12 tablet 07/26/2023 12/26/2023 Discontinued (Therapy completed) Problems Active Problems Problem Classification Problem Date Documented Da te Episodic/Chronic Diverticulosis and diverticulitis (12 sources) Diverticulitis of large intestine without perforation or abscess without bleeding; Translations: [Perforation of sigmoid colon due to diverticulitis] Onset: 09-23-2022 08-19-2023 Chronic Essential hypertension (15 sources) Essential hypertension; Translations: [Essential (primary) hypertension] Onset: 03-27-2023 03-27-2023 Chronic Other gastrointestinal disorders (12 sources) Colostomy present; Translations: [Colostomy status] Onset: 08-19-2023 08-19-2023 Chronic Other gastrointestinal disorders (12 sources) Chronic idiopathic constipation; Translations: [Chronic idiopathic constipation] Onset: 10-21-2023 10-21-2023 Chronic Other screening for suspected conditions (not mental disorders or infectious disease) (5 sources) Patient encounter status; Translations: [Encounter for screening for malignant neoplasm of prostate] Onset: 08-03-2024 08-03-2024 Episodic Residual codes; unclassified (1 source) Pain, unspecified; Translations: [Pain, unspecified] Onset: 07-20-2023 Episodic Residual codes; unclassified (12 sources) H/O: endocrine disorder; Translations: [Personal history of other specified conditions] Onset: 03-27-2023 03-27-2023 Episodic Substance-related disorders (1 source) Nicotine dependence, cigarettes, uncomplicated; Translations: [NICOTINE DEPEND CIGARETTES UNCOMP] Onset: 09-23-2022 Chronic Unclassified (1 source) Establish Care Onset: 01-27-2024 Unclassified (1 source) New Patient Onset: 11-04-2023 Unclassified (1 source) Post-op Onset: 08-07-2023 Unclassified (1 source) 63 yo M Cipriano Arzate 1960 . At [facility] abd pain since 9am. CT perforated sigmoid colon zosyn started. Spoke with Dr Missy FELIX to ER NPO no NG tube needed. Onset: 07-19-2023 Past or Other Problems Problem Classification Problem Date Documented Da te Episodic/Chronic Abdominal hernia (18 sources) Parastomal hernia; Translations: [Parastomal hernia without obstruction or gangrene] Onset: 11-23-2023 11-25-2023 Episodic Abdominal pain (5 sources) Right lower quadrant pain; Translations: [Abdominal pain] Onset: 09-20-2022 Episodic Cardiac dysrhythmias (1 source) Tachycardia, unspecified; Translations: [Tachycardia, unspecified] Onset: 07-19-2023 Episodic Disorders of teeth and jaw (10 sources) Toothache; Translations: [Other specified disorders of teeth and supporting structures] Onset: 03-27-2023 Resolved: 08-03-2024 03-27-2023 Episodic Mood disorders (11 sources) Mood disorders Onset: 07-20-2023 Resolved: 08-03-2024 07-20-2023 Other aftercare (10 sources) Post-discharge follow-up; Translations: [Encounter for follow-up examination after completed treatment for conditions other than malignant neoplasm] Onset: 08-19-2023 Resolved: 08-03-2024 08-19-2023 Episodic Other gastrointestinal disorders (1 source) Perforation of intestine (nontraumatic); Translations: [Perforation of intestine (nontraumatic)] Onset: 07-19-2023 Episodic Other gastrointestinal disorders (12 sources) Perforation of intestine; Translations: [Perforation of intestine (nontraumatic)] Onset: 07-19-2023 10-16-2023 Episodic Other gastrointestinal disorders (6 sources) H/O: Disorder; Translations: [Personal history of other diseases of the digestive system] Onset: 11-23-2023 11-23-2023 Episodic Other nervous system disorders (10 sources) Paresthesia of hand ; Translations: [Anesthesia of skin] Onset: 09-25-2023 09-25-2023 Episodic Other nervous system disorders (1 source) Other acute postprocedural pain; Translations: [Other acute postprocedural pain] Onset: 07-19-2023 Episodic Other upper respiratory infections (20 sources) Viral upper respiratory tract infection; Translations: [Acute upper respiratory infection, unspecified] Onset: 02-05-2024 Resolved: 08-03-2024 02-05-2024 Episodic Urinary tract infections (10 sources) Cystitis; Translations: [Cystitis, unspecified without hematuria] Onset: 10-21-2023 10-21-2023 Episodic Results Test Name Value Interpretation Reference Range Facility ECG 12 leadon 02-06-2024 TRACEMASTERVUE [facility] Surgical Pathologyon 024 Surgical Pathology Normal [facility] Comment on above: Result Comment: [facility] [address] [place] [address] Surgical Pathology Consultation Patient Name:CIPRIANO ARZATE:1960 (Age: 63)Gender:MTaken:01/09/2024eported:01/13/2024hysician(s):Abdirashid Cavazos M.D. ( )Copy To: Rec. #:[id number]: #[id number] Final Pathologic Diagnosis Transverse colon polyps, biopsy: Tubular adenoma and hyperplastic polyp. Report Electronically Signed Out [facility]/01/13/2024Matt Mayes M.D. Interpretation performed at [facility], [address] [place] [address], License number: [id number]. Clinical History Colostomy status. Gross Description Received in formalin labeled WHITE, transverse polyps are 2 ortiz soft tissue bits, 0.2 cm each. The specimen is filtered and submitted entirely in a single cassette. (1, ns, [id number], m3) MD. garza/01/09/2024GP Specimen(s) Received Transverse colon polyps Fee Codes(s): 1; 79620 BASIC METABOLIC PANLon 12-25 Anion gap [Moles/Vol] 11 mmol/L Normal - [facility] Comment on above: Performed By: #### C BCA, PINR, 45242-4, 28050-1, BMP, 51179-8, 2777-1 #### [facility] ([id number]) [address] [place] [address], [address] [place] [address] Calcium [Mass/Vol] 10.0 mg/dL Normal 8.5-10.5 [facility] [place] Comment on above: Performed By: #### C BCA, PINR, 95465-2, 31701-9, BMP, 49125-1, 2777-1 #### [facility] ([id number]) [address], [address] [place] [address] Chloride [Moles/Vol] 103 mmol/L Normal 98-109 [facility] Comment on above: Performed By: #### C BCA, PINR, 82084-3, 79524-8, BMP, 09122-1, 2777-1 #### [facility] ([id number]) [address], [address] [address] CO2 [Moles/Vol] 27 mmol/L Normal 22-32 [facility] Comment on above: Performed By: #### C BCA, PINR, 60196-0, 90530-6, BMP, 74158-5, 2777-1 #### [facility] ([id number]) [address], [address] [address] Creatinine [Mass/Vol] 1.00 mg/dL Normal 0.60-1.30 [facility] Comment on above: Result Comment: METH OD TRACEABLE TO IDMS STANDARD Performed By: #### C BCA, PINR, 34141-2, 91985-3, BMP, 18469-9, 2777-1 #### [facility] ([id number]) [address], [address] [address] GFR/1.73 sq M.predicted among non-blacks MDRD (S/P/Bld) [Vol rate/Area] 84 mL/min/{1.73_m2} Normal >59 [facility] Comment on above: Result Comment: Reported eGFR is based on the CKD-EPI 2020 equation that does not use a race coefficient. Performed By: #### C BCA, PINR, 27064-2, 20043-4, BMP, 13906-7, 2777-1 #### [facility] ([id number]) [address], [address] [place] [address] Glucose [Mass/Vol] 119 mg/dL High 65-99 [facility] [place] Comment on above: Performed By: #### C BCA, PINR, 99366-6, 32918-7, BMP, 52474-6, 7-1 #### [facility] ([id number]) [address], [address] [address] Potassium [Moles/Vol] 3.8 mmol/L Normal 3.5-5.0 [facility] Comment on above: Performed By: #### C BCA, PINR, 47602-0, 72353-7, BMP, 43059-0, 2776-1 #### [facility] ([id number]) [address], [address] [address] Sodium [Moles/Vol] 141 mmol/L Normal 134-146 [facility] Comment on above: Performed By: #### C BCA, PINR, 98422-8, 08593-1, BMP, 77155-1, 2777-1 #### [facility] ([id number]) [address], [address] [address] Urea nitrogen [Mass/Vol] 16 mg/dL Normal 5-27 [facility] Comment on above: Performed By: #### C BCA, PINR, 54972-9, 64139-3, BMP, 80663-0, 7-1 #### [facility] ([id number]) [address], [address] [address] Basic Metabolic Panelon 08-3 0-2023 Anion gap [Moles/Vol] 11 mmol/L 5 - 15 mmol/L [facility] Calcium [Mass/Vol] 10.0 mg/dL 8.5 - 10. 5 mg/dL [facility] Chloride [Moles/Vol] 103 mmol/L 98 - 109 mmol/L [facility] CO2 [Moles/Vol] 27 mmol/L 22 - 32 mmol/L [facility] Creatinine [Mass/Vol] 1.00 mg/dL 0.60 - 1.30 mg/dL [facility] Comment on above: METHOD TRACEABLE TO [facility] STANDARD eGFR (CKD-EPI)non-race dependent 84 - PINF [facility] Comment on above: Reported eGFR is based on the CKD-EPI 2020 equation that does not use a race coefficient. Glucose [Mass/Vol] 119 mg/dL High 65 - 99 mg/dL [facility] Interpretation and review of laboratory results Abnormal [facility] Potassium [Moles/Vol] 3.8 mmol/L 3.5 - 5.0 mmol/L [facility] Sodium [Moles/Vol] 141 mmol/L 134 - 146 mmol/L [facility] Urea nitrogen [Mass/Vol] 16 mg/dL 5 - 27 mg/dL [facility] CT ABDOMEN AND PELVIS W CONT on 11-27-2023 CT ABDOMEN AND PELVIS W CONT CT ABDOMEN AND PELVIS W CONT History: Parastomal hernia Technique: Contiguous axial images through the abdomen pelvis were obtained following the administration of intravenous contrast material. Automated exposure control was utilized. Comparison: 07/19/2023 Findings: A colostomy in the left lower abdomen has been created since the prior study. No parastomal hernia is seen. No collocating processes are seen. There is no evidence of any hepatic, splenic, adrenal, renal, pancreatic, or gallbladder abnormalities. No abdominal or retroperitoneal masses or adenopathy are seen. No pelvic masses, adenopathy, or fluid collections are identified. The appendix is normal in appearance. There is no its for an acute osseous abnormality. Limited images of the lung bases are unremarkable. Impression: * Interval creation of a colostomy in the left lower abdomen since the previous examination dated 07/19/2023. No parastomal hernia seen and no complicating processes are identified. * Otherwise normal CT abdomen and pelvis All CT scans at this facility use dose modulation, iterative reconstruction, and/or weight based dosing when appropriate to reduce radiation dose to as low as reasonably achievable Finalized by Jaun Gay MD on 11/27/2023 10:50 AM Normal [facility] CREATININEon 11-04-2023 Creatinine [Mass/Vol] 0.97 mg/dL Normal 0.60-1.30 [facility] Comment on above: Result Comment: METH OD TRACEABLE TO IDMS STANDARD Performed By: #### C BCA, PINR, 95242-8, 60681-0, BMP, 48450-2, 277-1 #### [facility] ([id number]) [address], [address] [place] [address] GFR/1.73 sq M.predicted among non-blacks MDRD (S/P/Bld) [Vol rate/Area] 87 mL/min/{1.73_m2} Normal >59 [facility] Comment on above: Result Comment: Reported eGFR is based on the CKD-EPI 2020 equation that does not use a race coefficient. Performed By: #### C BCA, PINR, 09395-8, 62266-2, BMP, 10572-6, 2776-1 #### [facility] ([id number]) [address], [address] [place] [address] BASIC METABOLIC PANLon 07-25 Anion gap [Moles/Vol] 10 mmol/L Normal 5-15 [facility] Comment on above: Performed By: #### C BCA, PINR, 36599-9, 03612-1, BMP, 64126-0, 2776-1 #### [facility] ([id number]) [address], [address] [place] [address] Calcium [Mass/Vol] 8.5 mg/dL Normal 8.5-10.5 [facility] Comment on above: Performed By: #### C BCA, PINR, 19744-8, 99971-2, BMP, 81153-8, 2777-1 #### [facility] ([id number]) [address], [address] [place] [address] Chloride [Moles/Vol] 101 mmol/L Normal 98-109 [facility] Comment on above: Performed By: #### C BCA, PINR, 34178-8, 00683-0, BMP, 11254-2, 2777-1 #### [facility] ([id number]) [address], [facility] [address] [place] [address] CO2 [Moles/Vol] 26 mmol/L Normal 22-32 [facility] Comment on above: Performed By: #### C BCA, PINR, 79267-5, 70494-7, BMP, 05322-0, 2776-1 #### [facility] ([id number]) [address], [address] [place] [address] Creatinine [Mass/Vol] 0.78 mg/dL Normal 0.60-1.30 [facility] Comment on above: Result Comment: METH OD TRACEABLE TO IDMS STANDARD Performed By: #### C BCA, PINR, 41651-7, 24455-0, BMP, 76153-9, 2776-04 #### [facility] ([id number]) [address] [address] eGFR (CKD-EPI) NON-RACE DEPENDENT >90 Normal >59 [facility] Comment on above: Result Comment: Reported eGFR is based on the CKD-EPI 2020 equation that does not use a race coefficient. Performed By: #### C BCA, PINR, 07018-1, 07474-6, BMP, 43828-7, 2776-04 #### [facility] ([id number]) [address], [address] [place] [address] Glucose [Mass/Vol] 94 mg/dL Normal 65-99 [facility] Comment on above: Performed By: #### C BCA, PINR, 27162-3, 45865-8, BMP, 70103-4, 2776-1 #### [facility] ([id number]) [address] [address] Potassium [Moles/Vol] 3.6 mmol/L Normal 3.5-5.0 [facility] Comment on above: Performed By: #### C BCA, PINR, 40359-6, 32093-2, BMP, 70519-5, 2776- #### [facility] ([id number]) [address], [address] [place] [address] Sodium [Moles/Vol] 137 mmol/L Normal 134-146 [facility] Comment on above: Performed By: #### C BCA, PINR, 63287-5, 66800-1, BMP, 62412-1, 2776- #### [facility] ([id number]) [address], [address] [place] [address] Urea nitrogen [Mass/Vol] 16 mg/dL Normal 5-27 [facility] Comment on above: Performed By: #### C BCA, PINR, 64932-5, 59897-4, BMP, 92123-9, 2776- #### [facility] ([id number]) [address], [address] [place] [address] CBC AND AUTO DIFFon 07-26-19 24 ABSOLUTE BASOPHIL 0.0 X10E9/L Normal 0.0-0.2 [facility] Comment on above: Performed By: #### C BCA, PINR, 23750-4, 61631-1, BMP, 92392-1, 2776-04 #### [facility] ([id number]) [address], [address] [place] [address] ABSOLUTE NEUTROPHIL 7.9 X10E9/L High 1.5-6.6 [facility] Comment on above: Performed By: #### C BCA, PINR, 83668-7, 53863-5, BMP, 73938-4, 2776- #### [facility] ([id number]) [address] [address] [place] [address] Basophils/100 WBC (Bld) 0.2 % Normal [facility] Comment on above: Performed By: #### C BCA, PINR, 71379-1, 49264-5, BMP, 19244-6, 2776- #### [facility] ([id number]) [address], [address] [place] [address] Eosinophils (Bld) [#/Vol] 0.1 10*3/uL Normal 0.0-0.4 [facility] Comment on above: Performed By: #### C BCA, PINR, 90461-2, 23979-5, BMP, 16756-8, 2776- #### [facility] ([id number]) [address], [address] [place] [address] Eosinophils/100 WBC (Bld) 1.0 % Normal [facility] Comment on above: Performed By: #### C BCA, PINR, 04445-3, 77547-8, BMP, 19109-4, 2776-04 #### [facility] ([id number]) [address], [facility] [address] [place] [address] Erythrocyte distribution width (RBC) [Ratio] 14.0 % Normal 11.5-15.0 [facility] Comment on above: Performed By: #### C BCA, PINR, 81745-4, 68416-5, BMP, 14391-4, 2776-04 #### [facility] ([id number]) [address], [address] [place] [address] Hematocrit (Bld) [Volume fraction] 43.7 % Normal 39-49 [facility] Comment on above: Performed By: #### C BCA, PINR, 16131-8, 45349-5, BMP, 26178-8, 2776-04 #### [facility] ([id number]) [address], [facility] [address] [place] [address] Hemoglobin (Bld) [Mass/Vol] 14.4 g/dL Normal 13.0-17.0 [facility] Comment on above: Performed By: #### C BCA, PINR, 27425-4, 22765-5, BMP, 58642-0, 2776-1 #### [facility] ([id number]) [address], [address] [place] [address] Lymphocytes (Bld) [#/Vol] 1.2 10*3/uL Normal 1.0-3.5 [facility] Comment on above: Performed By: #### C BCA, PINR, 08046-6, 62322-3, BMP, 71580-3, 2776-1 #### [facility] ([id number]) [address], [address] [place] [address] Lymphocytes/100 WBC (Bld) 11.0 % Normal [facility] Comment on above: Performed By: #### C BCA, PINR, 40502-6, 94673-8, BMP, 84832-4, 2776-04 #### [facility] ([id number]) [address], [address] [place] [address] MCH (RBC) [Entitic mass] 31.2 pg Normal 27-34 [facility] Comment on above: Performed By: #### C BCA, PINR, 82694-0, 06351-1, BMP, 06415-7, 2776- #### [facility] ([id number]) [address], [address] [place] [address] MCHC (RBC) [Mass/Vol] 33.0 g/dL Normal 32-36 [facility] Comment on above: Performed By: #### C BCA, PINR, 96080-7, 66569-6, BMP, 28398-4, 2776- #### [facility] ([id number]) [address], [address] [place] [address] MCV (RBC) [Entitic vol] 95 fL Normal 80-100 [facility] Comment on above: Performed By: #### C BCA, PINR, 62174-1, 03232-9, BMP, 64461-4, 2776- #### [facility] ([id number]) [address], [address] [place] [address] Monocytes (Bld) [#/Vol] 1.6 10*3/uL High 0-0.9 [facility] [facility] Comment on above: Performed By: #### C BCA, PINR, 23994-6, 40743-3, BMP, 91941-3, 2777-1 #### [facility] ([id number]) [address], [address] [place] [address] Monocytes/100 WBC (Bld) 14.8 % Normal [facility] Comment on above: Performed By: #### C BCA, PINR, 73998-6, 27276-2, BMP, 37893-0, 2776-1 #### [facility] ([id number]) [address], [address] [place] [address] Neutrophils/100 WBC (Bld) 73.0 % Normal [facility] Comment on above: Performed By: #### C BCA, PINR, 51063-3, 11136-6, BMP, 99645-8, 2776-1 #### [facility] ([id number]) [address], [address] [place] [address] Platelet mean volume (Bld) [Entitic vol] 8.2 fL Normal 7-12 [facility] Comment on above: Performed By: #### C BCA, PINR, 68959-8, 01666-4, BMP, 36617-3, 2776-1 #### [facility] ([id number]) [address], [address] [place] [address] Platelets (Bld) [#/Vol] 315 10*3/uL Normal 150-450 [facility] Comment on above: Performed By: #### C BCA, PINR, 84161-8, 99392-2, BMP, 62613-4, 2777-1 #### [facility] ([id number]) [address], [address] [place] [address] RBC COUNT 4.62 X10E12/L Normal 4.10-5.70 [facility] Comment on above: Performed By: #### C BCA, PINR, 76488-8, 80370-9, BMP, 02580-4, 2776-1 #### [facility] ([id number]) [address], [address] [place] [address] WBC (Bld) [#/Vol] 10.8 10*3/uL Normal 4.0-11.0 [facility] Comment on above: Performed By: #### C BCA, PINR, 19632-0, 06351-0, BMP, 60846-0, 2776-1 #### [facility] ([id number]) [address], [address] [place] [address] MAGNESIUMon 07-26-2023 Magnesium [Mass/Vol] 2.4 mg/dL Normal 1.8-2.6 [facility] Comment on above: Performed By: #### C BCA, PINR, 77741-7, 96404-0, BMP, 12054-1, 2776-1 #### [facility] ([id number]) [address], [address] [place] [address] Magnesium [Mass/Vol] 1.9 mg/dL Normal 1.8-2.6 [facility] Comment on above: Performed By: #### C BCA, PINR, 98723-1, 12617-9, BMP, 42451-5, 2776-1 #### [facility] ([id number]) [address], [address] [place] [address] PHOSPHORUSon 07-26-2023 Phosphate [Mass/Vol] 2.6 mg/dL Normal 2.4-4.9 [facility] Comment on above: Performed By: #### C BCA, PINR, 34089-0, 72316-6, BMP, 82084-7, 2776-1 #### [facility] ([id number]) [address], [address] [place] [address] POTASSIUMon 07-26-2023 Potassium [Moles/Vol] 3.9 mmol/L Normal 3.5-5.0 [facility] Comment on above: Performed By: #### C BCA, PINR, 28743-0, 16771-3, BMP, 23749-3, 2777-1 #### [facility] ([id number]) [address], [address] [place] [address] BASIC METABOLIC PANLon 07-24 Anion gap [Moles/Vol] 6 mmol/L Normal 5-15 [facility] Comment on above: Performed By: #### C BCA, PINR, 69949-7, 47316-1, BMP, 88883-1, 2776-1 #### [facility] ([id number]) [address], [address] [place] [address] Calcium [Mass/Vol] 8.4 mg/dL Low 8.5-10.5 [facility] Comment on above: Performed By: #### C BCA, PINR, 20295-9, 94438-4, BMP, 21163-4, 2776-1 #### [facility] ([id number]) [address], [address] [place] [address] Chloride [Moles/Vol] 99 mmol/L Normal 98-109 [facility] Comment on above: Performed By: #### C BCA, PINR, 71550-8, 76527-1, BMP, 53551-5, 2776-1 #### [facility] ([id number]) [address], [address] [place] [address] CO2 [Moles/Vol] 30 mmol/L Normal 22-32 [facility] Comment on above: Performed By: #### C BCA, PINR, 46171-7, 24455-4, BMP, 33962-8, 277-1 #### [facility] ([id number]) [address], [address] [place] [address] Creatinine [Mass/Vol] 0.80 mg/dL Normal 0.60-1.30 [facility] Comment on above: Result Comment: METH OD TRACEABLE TO IDMS STANDARD Performed By: #### C BCA, PINR, 88410-7, 89996-3, BMP, 45145-3, 2777-1 #### [facility] ([id number]) [address], [address] [place] [address] eGFR (CKD-EPI) NON-RACE DEPENDENT >90 Normal >59 [facility] Comment on above: Result Comment: Reported eGFR is based on the CKD-EPI 2020 equation that does not use a race coefficient. Performed By: #### C BCA, PINR, 17097-3, 55125-7, BMP, 67230-7, 7-1 #### [facility] ([id number]) [address], [address] [place] [address] Glucose [Mass/Vol] 95 mg/dL Normal 65-99 [facility] Comment on above: Performed By: #### C BCA, PINR, 74387-8, 55844-4, BMP, 66973-7, 2776-1 #### [facility] ([id number]) [address], [address] [place] [address] Potassium [Moles/Vol] 4.2 mmol/L Normal 3.5-5.0 [facility] Comment on above: Performed By: #### C BCA, PINR, 60665-8, 30989-1, BMP, 29142-0, 2777-1 #### [facility] ([id number]) [address] [address] [place] [address] Sodium [Moles/Vol] 135 mmol/L Normal 134-146 [facility] Comment on above: Performed By: #### C BCA, PINR, 61554-7, 30649-7, BMP, 57212-2, 2777-1 #### [place] [facility] ([id number]) [address], [address] [place] [address] Urea nitrogen [Mass/Vol] 15 mg/dL Normal 5-27 [facility] Comment on above: Performed By: #### C BCA, PINR, 62282-3, 69235-4, BMP, 19624-0, 2776-1 #### [facility] ([id number]) [address], [address] [place] [address] CBC AND AUTO DIFFon 07-25-19 24 ABSOLUTE BASOPHIL 0.0 X10E9/L Normal 0.0-0.2 [facility] Comment on above: Performed By: #### C BCA, PINR, 10864-2, 52566-4, BMP, 79252-6, 2776-04 #### [facility] ([id number]) [address], [address] [place] [address] ABSOLUTE NEUTROPHIL 7.0 X10E9/L High 1.5-6.6 [facility] Comment on above: Performed By: #### C BCA, PINR, 49736-6, 81174-4, BMP, 68957-2, 2776-04 #### [facility] ([id number]) [address], [address] [place] [address] Basophils/100 WBC (Bld) 0.3 % Normal [facility] Comment on above: Performed By: #### C BCA, PINR, 71771-8, 88040-5, BMP, 49644-1, 2776-04 #### [facility] ([id number]) [address] [address] [place] [address] Eosinophils (Bld) [#/Vol] 0.1 10*3/uL Normal 0.0-0.4 [facility] Comment on above: Performed By: #### C BCA, PINR, 93274-2, 98496-7, BMP, 78038-4, 2776- #### [facility] ([id number]) [address], [address] [place] [address] Eosinophils/100 WBC (Bld) 1.1 % Normal [facility] Comment on above: Performed By: #### C BCA, PINR, 36054-3, 70555-5, BMP, 80360-3, 2776-1 #### [facility] ([id number]) [address] [place] [address] Erythrocyte distribution width (RBC) [Ratio] 14.1 % Normal 11.5-15.0 [facility] Comment on above: Performed By: #### C BCA, PINR, 08419-9, 13528-2, BMP, 01295-6, 2776-04 #### [facility] ([id number]) [address] [place] [address] Hematocrit (Bld) [Volume fraction] 43.1 % Normal 39-49 [facility] Comment on above: Performed By: #### C BCA, PINR, 81826-2, 31446-2, BMP, 32706-5, 2776-04 #### [facility] ([id number]) [address] [place] [address] Hemoglobin (Bld) [Mass/Vol] 14.7 g/dL Normal 13.0-17.0 [facility] Comment on above: Performed By: #### C BCA, PINR, 99801-8, 49750-3, BMP, 44603-0, 1 #### [facility] ([id number]) [address] [address] Lymphocytes (Bld) [#/Vol] 1.2 10*3/uL Normal 1.0-3.5 [facility] Comment on above: Performed By: #### C BCA, PINR, 03076-9, 01860-3, BMP, 22444-2, 2776- #### [facility] ([id number]) [address], [address] [place] [address] Lymphocytes/100 WBC (Bld) 12.2 % Normal [facility] Comment on above: Performed By: #### C BCA, PINR, 44324-2, 31630-5, BMP, 70830-4, 2776-1 #### [facility] ([id number]) [address], [address] [place] [address] MCH (RBC) [Entitic mass] 31.7 pg Normal 27-34 [facility] Comment on above: Performed By: #### C BCA, PINR, 85246-3, 96411-1, BMP, 54303-4, 2776-1 #### [facility] ([id number]) [address] [place] [address] MCHC (RBC) [Mass/Vol] 34.0 g/dL Normal 32-36 [facility] Comment on above: Performed By: #### C BCA, PINR, 51074-1, 48440-8, BMP, 35538-1, 2776-1 #### [facility] ([id number]) [address] [place] [address] MCV (RBC) [Entitic vol] 93 fL Normal 80-100 [facility] Comment on above: Performed By: #### C BCA, PINR, 20133-5, 41188-6, BMP, 48004-7, 2776-1 #### [facility] ([id number]) [address] [place] [address] Monocytes (Bld) [#/Vol] 1.3 10*3/uL High 0-0.9 [facility] Comment on above: Performed By: #### C BCA, PINR, 20741-7, 49018-8, BMP, 72071-4, 7-1 #### [facility] ([id number]) [address], [address] [place] [address] Monocytes/100 WBC (Bld) 13.4 % Normal [facility] Comment on above: Performed By: #### C BCA, PINR, 83324-9, 13736-1, BMP, 09812-3, 2777-1 #### [facility] ([id number]) [address], [address] [place] [address] Neutrophils/100 WBC (Bld) 73.0 % Normal [facility] Comment on above: Performed By: #### C BCA, PINR, 11461-3, 81232-2, BMP, 29861-4, 2776-1 #### [facility] ([id number]) [address], [address] [place] [address] Platelet mean volume (Bld) [Entitic vol] 8.4 fL Normal 7-12 [facility] Comment on above: Performed By: #### C BCA, PINR, 79917-9, 52190-9, BMP, 10414-4, 2776-1 #### [facility] ([id number]) [address], [address] [place] [address] Platelets (Bld) [#/Vol] 319 10*3/uL Normal 150-450 [facility] Comment on above: Performed By: #### C BCA, PINR, 35951-6, 63231-6, BMP, 12504-9, 2776-1 #### [facility] ([id number]) [address], [address] [place] [address] RBC COUNT 4.62 X10E12/L Normal 4.10-5.70 [facility] Comment on above: Performed By: #### C BCA, PINR, 96052-7, 93474-2, BMP, 80852-2, 2777-1 #### [facility] ([id number]) [address], [address] [place] [address] WBC (Bld) [#/Vol] 9.6 10*3/uL Normal 4.0-11.0 [facility] Comment on above: Performed By: #### C BCA, PINR, 49720-0, 60113-2, BMP, 36595-1, 2776-1 #### [facility] ([id number]) [address], [address] [place] [address] MAGNESIUMon 07-25-2023 Magnesium [Mass/Vol] 2.1 mg/dL Normal 1.8-2.6 [facility] Comment on above: Performed By: #### C BCA, PINR, 18273-9, 01512-3, BMP, 51241-5, 2776-1 #### [facility] ([id number]) [address], [address] [place] [address] PHOSPHORUSon 07-25-2023 Phosphate [Mass/Vol] 2.9 mg/dL Normal 2.4-4.9 [facility] Comment on above: Result Comment: SPEC IMEN HEMOLYZED, RESULTS INCREASED SLIGHTLY HEMOLYZED Performed By: #### C BCA, PINR, 01170-2, 03622-4, BMP, 10058-8, 2776-1 #### [facility] ([id number]) [address], [address] [place] [address] BASIC METABOLIC PANLon 07-23 Anion gap [Moles/Vol] 10 mmol/L Normal 5-15 [facility] Comment on above: Performed By: #### C BCA, PINR, 26999-2, 99132-0, BMP, 84532-3, 2776-1 #### [facility] ([id number]) [address], [address] [place] [address] Calcium [Mass/Vol] 8.5 mg/dL Normal 8.5-10.5 [facility] Comment on above: Performed By: #### C BCA, PINR, 78792-9, 47711-5, BMP, 12713-5, 2776-1 #### [facility] ([id number]) [address], [address] [place] [address] Chloride [Moles/Vol] 100 mmol/L Normal 98-109 [facility] Comment on above: Performed By: #### C BCA, PINR, 43669-6, 48937-5, BMP, 45460-3, 2776-1 #### [facility] ([id number]) [address], [address] [place] [address] CO2 [Moles/Vol] 27 mmol/L Normal 22-32 [facility] Comment on above: Performed By: #### C BCA, PINR, 62857-4, 33824-9, BMP, 94072-8, 2776-1 #### [facility] ([id number]) [address], [address] [place] [address] Creatinine [Mass/Vol] 0.84 mg/dL Normal 0.60-1.30 [facility] Comment on above: Result Comment: METH OD TRACEABLE TO IDMS STANDARD Performed By: #### C BCA, PINR, 56587-8, 73376-0, BMP, 39622-9, 2776-1 #### [facility] ([id number]) [address], [address] [place] [address] eGFR (CKD-EPI) NON-RACE DEPENDENT >90 Normal >59 [facility] Comment on above: Result Comment: Reported eGFR is based on the CKD-EPI 2020 equation that does not use a race coefficient. Performed By: #### C BCA, PINR, 64864-9, 63600-5, BMP, 41413-3, 2776-1 #### [facility] ([id number]) [address], [address] [place] [address] Glucose [Mass/Vol] 140 mg/dL High 65-99 [facility] Comment on above: Performed By: #### C BCA, PINR, 83227-1, 26501-7, BMP, 76329-1, 2777- #### [facility] ([id number]) [address], [address] [place] [address] Potassium [Moles/Vol] 3.5 mmol/L Normal 3.5-5.0 [facility] Comment on above: Performed By: #### C BCA, PINR, 18979-5, 79794-0, BMP, 78545-0, 2776- #### [facility] ([id number]) [address], [address] [place] [address] Sodium [Moles/Vol] 137 mmol/L Normal 134-146 [facility] Comment on above: Performed By: #### C BCA, PINR, 03435-6, 06846-1, BMP, 89676-0, 2776-04 #### [facility] ([id number]) [address], [address] [place] [address] Urea nitrogen [Mass/Vol] 20 mg/dL Normal 5-27 [facility] Comment on above: Performed By: #### C BCA, PINR, 19383-7, 93234-3, BMP, 12758-8, 2776-04 #### [facility] ([id number]) [address] [place] [address] CBC AND AUTO DIFFon 07-24-19 ABSOLUTE BASOPHIL 0.0 X10E9/L Normal 0.0-0.2 [facility] Comment on above: Performed By: #### C BCA, PINR, 36158-7, 00659-1, BMP, 16574-1, 2776- #### [facility] ([id number]) [address], [address] [place] [address] ABSOLUTE NEUTROPHIL 7.9 X10E9/L High 1.5-6.6 [facility] Comment on above: Performed By: #### C BCA, PINR, 28351-7, 62661-9, BMP, 51533-9, 2776- #### [facility] ([id number]) [address], [address] [place] [address] Basophils/100 WBC (Bld) 0.2 % Normal [facility] Comment on above: Performed By: #### C BCA, PINR, 81498-7, 29305-1, BMP, 88479-7, 2776-1 #### [facility] ([id number]) [address], [address] [place] [address] Eosinophils (Bld) [#/Vol] 0.1 10*3/uL Normal 0.0-0.4 [facility] Comment on above: Performed By: #### C BCA, PINR, 72760-8, 09722-9, BMP, 60969-0, 2776-04 #### [facility] ([id number]) [address], [address] [place] [address] Eosinophils/100 WBC (Bld) 0.7 % Normal [facility] Comment on above: Performed By: #### C BCA, PINR, 94996-6, 49269-1, BMP, 20468-8, 2776-04 #### [facility] ([id number]) [address] [place] [address] Erythrocyte distribution width (RBC) [Ratio] 14.3 % Normal 11.5-15.0 [facility] Comment on above: Performed By: #### C BCA, PINR, 25688-1, 23761-2, BMP, 79889-2, 2776-04 #### [facility] ([id number]) [address], [address] [place] [address] Hematocrit (Bld) [Volume fraction] 44.3 % Normal 39-49 [facility] Comment on above: Performed By: #### C BCA, PINR, 81414-1, 13905-0, BMP, 25687-2, 2776- #### [facility] ([id number]) [address] [place] [address] Hemoglobin (Bld) [Mass/Vol] 14.7 g/dL Normal 13.0-17.0 [facility] Comment on above: Performed By: #### C BCA, PINR, 59559-2, 20109-4, BMP, 54953-1, 2776-1 #### [facility] ([id number]) [address] [place] [address] Lymphocytes (Bld) [#/Vol] 1.3 10*3/uL Normal 1.0-3.5 [facility] Comment on above: Performed By: #### C BCA, PINR, 89504-2, 67226-8, BMP, 10902-8, 2776-1 #### [facility] ([id number]) [address] [place] [address] Lymphocytes/100 WBC (Bld) 12.8 % Normal [facility] Comment on above: Performed By: #### C BCA, PINR, 36590-3, 98563-5, BMP, 80080-5, 2776-1 #### [facility] ([id number]) [address] [place] [address] MCH (RBC) [Entitic mass] 31.5 pg Normal 27-34 [facility] Comment on above: Performed By: #### C BCA, PINR, 85059-1, 81977-8, BMP, 66504-2, 2776-1 #### [facility] ([id number]) [address] [place] [address] MCHC (RBC) [Mass/Vol] 33.2 g/dL Normal 32-36 [facility] Comment on above: Performed By: #### C BCA, PINR, 83441-2, 32674-6, BMP, 74307-3, 2776-1 #### [facility] ([id number]) [address] [place] [address] MCV (RBC) [Entitic vol] 95 fL Normal 80-100 [facility] Comment on above: Performed By: #### C BCA, PINR, 02043-9, 56447-9, BMP, 87677-7, 2776-1 #### [facility] ([id number]) [address] [place] [address] Monocytes (Bld) [#/Vol] 1.2 10*3/uL High 0-0.9 [facility] Comment on above: Performed By: #### C BCA, PINR, 35590-2, 97909-7, BMP, 05475-1, 2776-1 #### [facility] ([id number]) [address] [place] [address] Monocytes/100 WBC (Bld) 10.9 % Normal [facility] Comment on above: Performed By: #### C BCA, PINR, 11318-6, 46905-4, BMP, 16150-7, 2776-1 #### [facility] ([id number]) [address] [place] [address] Neutrophils/100 WBC (Bld) 75.4 % Normal [facility] Comment on above: Performed By: #### C BCA, PINR, 35101-3, 57634-2, BMP, 26442-6, 2776-1 #### [facility] ([id number]) [address] [place] [address] Platelet mean volume (Bld) [Entitic vol] 8.6 fL Normal 7-12 [facility] Comment on above: Performed By: #### C BCA, PINR, 50115-1, 51192-1, BMP, 89290-0, 2776-1 #### [facility] ([id number]) [address] [place] [address] Platelets (Bld) [#/Vol] 281 10*3/uL Normal 150-450 [facility] Comment on above: Performed By: #### C BCA, PINR, 29851-5, 47838-9, BMP, 31311-1, 2777-1 #### [facility] ([id number]) [address] [place] [address] RBC COUNT 4.68 X10E12/L Normal 4.10-5.70 [facility] Comment on above: Performed By: #### C BCA, PINR, 64141-2, 94860-8, BMP, 68621-9, 7-1 #### [facility] ([id number]) [address], [address] [place] [address] WBC (Bld) [#/Vol] 10.5 10*3/uL Normal 4.0-11.0 [facility] Comment on above: Performed By: #### C BCA, PINR, 24647-2, 87745-3, BMP, 36595-7, 2777-1 #### [facility] ([id number]) [address], [address] [place] [address] MAGNESIUMon 07-24-2023 Magnesium [Mass/Vol] 2.4 mg/dL Normal 1.8-2.6 [facility] Comment on above: Performed By: #### C BCA, PINR, 39268-0, 83629-2, BMP, 76649-5, 2776-1 #### [facility] ([id number]) [address], [address] [place] [address] Magnesium [Mass/Vol] 1.6 mg/dL Low 1.8-2.6 [facility] Comment on above: Performed By: #### C BCA, PINR, 50057-3, 45687-1, BMP, 55484-6, 2777-1 #### [facility] ([id number]) [address], [address] [place] [address] PHOSPHORUSon 07-24-2023 Phosphate [Mass/Vol] 2.8 mg/dL Normal 2.4-4.9 [facility] Comment on above: Performed By: #### C BCA, PINR, 88721-0, 04628-3, BMP, 00785-1, 2776-1 #### [facility] ([id number]) [address], [address] [place] [address] POTASSIUMon 07-24-2023 Potassium [Moles/Vol] 3.8 mmol/L Normal 3.5-5.0 [facility] Comment on above: Performed By: #### C BCA, PINR, 59865-6, 53664-5, BMP, 88838-4, 2776-1 #### [facility] ([id number]) [address], [address] [place] [address] XR ABDOMEN AP 1 VWon 2 024 XR ABDOMEN AP 1 VW XR ABDOMEN AP 1 VW CLINICAL HISTORY: Ileus or obstruction, abdominal pain Comparison: 07/19/2023 Views: 1 view FINDINGS: * Diffuse dilatation of large and small bowel. Multiple surgical clips. There is air within the rectum. Lung bases clear. IMPRESSION: * Probable postop ileus. Finalized by Doroteo Chavarria MD on 07/24/2023 6:05 PM Normal [facility] BASIC METABOLIC PANLon 07-22 Anion gap [Moles/Vol] 7 mmol/L Normal 5-15 [facility] Comment on above: Performed By: #### C BCA, PINR, 00890-3, 51401-7, BMP, 53066-2, 2776-1 #### [facility] ([id number]) [address], [address] [place] [address] Calcium [Mass/Vol] 9.1 mg/dL Normal 8.5-10.5 [facility] Comment on above: Performed By: #### C BCA, PINR, 86340-9, 26891-5, BMP, 29858-0, 2776-1 #### [facility] ([id number]) [address], [address] [place] [address] Chloride [Moles/Vol] 103 mmol/L Normal 98-109 [facility] Comment on above: Performed By: #### C BCA, PINR, 20158-6, 56678-0, BMP, 15036-1, 2776-1 #### [facility] ([id number]) [address], [address] [place] [address] CO2 [Moles/Vol] 29 mmol/L Normal 22-32 [facility] Comment on above: Performed By: #### C BCA, PINR, 87074-1, 13081-7, BMP, 15276-0, 2776-04 #### [facility] ([id number]) [address], [address] [place] [address] Creatinine [Mass/Vol] 0.84 mg/dL Normal 0.60-1.30 [facility] Comment on above: Result Comment: METH OD TRACEABLE TO IDMS STANDARD Performed By: #### C BCA, PINR, 86795-6, 29269-6, BMP, 48981-3, 1 #### [facility] ([id number]) [address], [address] [place] [address] eGFR (CKD-EPI) NON-RACE DEPENDENT >90 Normal >59 [facility] Comment on above: Result Comment: Reported eGFR is based on the CKD-EPI 2020 equation that does not use a race coefficient. Performed By: #### C BCA, PINR, 02250-2, 12238-6, BMP, 94588-6, 2776-1 #### [facility] ([id number]) [address], [address] [place] [address] Glucose [Mass/Vol] 161 mg/dL High 65-99 [facility] Comment on above: Performed By: #### C BCA, PINR, 37228-8, 16382-5, BMP, 25155-7, 2776-04 #### [facility] ([id number]) [address], [address] [place] [address] Potassium [Moles/Vol] 3.4 mmol/L Low 3.5-5.0 [facility] Comment on above: Performed By: #### C BCA, PINR, 09780-5, 55714-5, BMP, 35150-1, 2776- #### [facility] ([id number]) [address], [address] [place] [address] Sodium [Moles/Vol] 139 mmol/L Normal 134-146 [facility] Comment on above: Performed By: #### C BCA, PINR, 07346-2, 92181-7, BMP, 04093-6, 2776-04 #### [facility] ([id number]) [address], [address] [place] [address] Urea nitrogen [Mass/Vol] 16 mg/dL Normal 5-27 [facility] Comment on above: Performed By: #### C BCA, PINR, 54828-4, 54247-3, BMP, 32668-4, 2776-04 #### [facility] ([id number]) [address], [address] [place] [address] CBC AND AUTO DIFFon 07-23-19 24 ABSOLUTE BASOPHIL 0.0 X10E9/L Normal 0.0-0.2 [facility] Comment on above: Performed By: #### C BCA, PINR, 37335-4, 70202-9, BMP, 66526-0, 2776- #### [facility] ([id number]) [address], [address] [place] [address] ABSOLUTE NEUTROPHIL 8.2 X10E9/L High 1.5-6.6 [facility] Comment on above: Performed By: #### C BCA, PINR, 83117-6, 31589-4, BMP, 23654-8, 2776-04 #### [facility] ([id number]) [address], [address] [place] [address] Basophils/100 WBC (Bld) 0.2 % Normal [facility] Comment on above: Performed By: #### C BCA, PINR, 88117-9, 05038-2, BMP, 34980-1, 2776- #### [facility] ([id number]) [address], [address] [place] [address] Eosinophils (Bld) [#/Vol] 0.0 10*3/uL Normal 0.0-0.4 [facility] Comment on above: Performed By: #### C BCA, PINR, 76529-0, 70780-7, BMP, 26450-4, 2776-04 #### [facility] ([id number]) [address], [address] [place] [address] Eosinophils/100 WBC (Bld) 0.4 % Normal [facility] Comment on above: Performed By: #### C BCA, PINR, 53941-0, 24716-5, BMP, 20241-9, 2776-04 #### [facility] ([id number]) [address], [address] [place] [address] Erythrocyte distribution width (RBC) [Ratio] 14.5 % Normal 11.5-15.0 [facility] Comment on above: Performed By: #### C BCA, PINR, 44383-4, 01499-9, BMP, 19287-2, 2776-04 #### [facility] ([id number]) [address], [address] [place] [address] Hematocrit (Bld) [Volume fraction] 43.3 % Normal 39-49 [facility] Comment on above: Performed By: #### C BCA, PINR, 64224-7, 13917-5, BMP, 59542-8, 2776- #### [facility] ([id number]) [address], [address] [place] [address] Hemoglobin (Bld) [Mass/Vol] 14.5 g/dL Normal 13.0-17.0 [facility] Comment on above: Performed By: #### C BCA, PINR, 63526-6, 47784-7, BMP, 17619-4, 7-1 #### [facility] ([id number]) [address], [address] [place] [address] Lymphocytes (Bld) [#/Vol] 1.1 10*3/uL Normal 1.0-3.5 [facility] Comment on above: Performed By: #### C BCA, PINR, 29063-3, 46754-1, BMP, 50626-1, 2776-1 #### [facility] ([id number]) [address], [address] [place] [address] Lymphocytes/100 WBC (Bld) 10.4 % Normal [facility] Comment on above: Performed By: #### C BCA, PINR, 60503-2, 40536-9, BMP, 52090-4, 2776-1 #### [facility] ([id number]) [address], [address] [place] [address] MCH (RBC) [Entitic mass] 31.2 pg Normal 27-34 [facility] Comment on above: Performed By: #### C BCA, PINR, 64132-0, 05358-0, BMP, 63311-3, 2776-1 #### [facility] ([id number]) [address], [address] [place] [address] MCHC (RBC) [Mass/Vol] 33.4 g/dL Normal 32-36 [facility] Comment on above: Performed By: #### C BCA, PINR, 48646-9, 58410-2, BMP, 35393-0, 2776-1 #### [facility] ([id number]) [address], [address] [place] [address] MCV (RBC) [Entitic vol] 94 fL Normal 80-100 [facility] Comment on above: Performed By: #### C BCA, PINR, 11042-2, 35609-6, BMP, 30646-6, 7-1 #### [facility] ([id number]) [address], [address] [place] [address] Monocytes (Bld) [#/Vol] 1.2 10*3/uL High 0-0.9 [facility] Comment on above: Performed By: #### C BCA, PINR, 47796-6, 82974-1, BMP, 28022-9, 2776- #### [facility] ([id number]) [address], [address] [place] [address] Monocytes/100 WBC (Bld) 11.5 % Normal [facility] Comment on above: Performed By: #### C BCA, PINR, 27160-1, 62581-1, BMP, 89825-5, 2776- #### [facility] ([id number]) [address], [address] [place] [address] Neutrophils/100 WBC (Bld) 77.5 % Normal [facility] Comment on above: Performed By: #### C BCA, PINR, 32533-5, 08630-7, BMP, 22310-5, 2776- #### [facility] ([id number]) [address], [address] [place] [address] Platelet mean volume (Bld) [Entitic vol] 8.0 fL Normal 7-12 [facility] Comment on above: Performed By: #### C BCA, PINR, 63503-1, 49823-8, BMP, 42192-0, 2776-1 #### [facility] ([id number]) [address], [address] [place] [address] Platelets (Bld) [#/Vol] 267 10*3/uL Normal 150-450 [facility] Comment on above: Performed By: #### C BCA, PINR, 78390-0, 32359-3, BMP, 89508-8, 2777-1 #### [facility] ([id number]) [address], [address] [place] [address] RBC COUNT 4.63 X10E12/L Normal 4.10-5.70 [facility] Comment on above: Performed By: #### C BCA, PINR, 33806-4, 85304-4, BMP, 14754-1, 2776-1 #### [facility] ([id number]) [address], [address] [place] [address] WBC (Bld) [#/Vol] 10.6 10*3/uL Normal 4.0-11.0 [facility] Comment on above: Performed By: #### C BCA, PINR, 53062-1, 27431-9, BMP, 50590-9, 2777-1 #### [facility] ([id number]) [address], [address] [place] [address] MAGNESIUMon 07-23-2023 Magnesium [Mass/Vol] 1.9 mg/dL Normal 1.8-2.6 [facility] Comment on above: Performed By: #### C BCA, PINR, 07721-8, 32154-1, BMP, 36629-2, 2777-1 #### [facility] ([id number]) [address], [address] [place] [address] PHOSPHORUSon 07-23-2023 Phosphate [Mass/Vol] 2.2 mg/dL Low 2.4-4.9 [facility] Comment on above: Performed By: #### C BCA, PINR, 70487-6, 54948-5, BMP, 64487-0, 2777-1 #### [facility] ([id number]) [address], [address] [place] [address] POTASSIUMon 07-23-2023 Potassium [Moles/Vol] 3.9 mmol/L Normal 3.5-5.0 [facility] Comment on above: Performed By: #### C BCA, PINR, 99741-8, 09619-3, BMP, 73602-0, 7-1 #### [facility] ([id number]) [address], [address] [place] [address] BASIC METABOLIC PANLon 07-21 Anion gap [Moles/Vol] 8 mmol/L Normal 5-15 [facility] Comment on above: Performed By: #### C BCA, PINR, 58325-7, 02271-4, BMP, 76414-8, 2776-1 #### [facility] ([id number]) [address], [address] [place] [address] Calcium [Mass/Vol] 9.1 mg/dL Normal 8.5-10.5 [facility] Comment on above: Performed By: #### C BCA, PINR, 61289-0, 31686-8, BMP, 08129-0, 2776-1 #### [facility] ([id number]) [address], [address] [place] [address] Chloride [Moles/Vol] 102 mmol/L Normal 98-109 [facility] Comment on above: Performed By: #### C BCA, PINR, 05433-1, 15943-2, BMP, 79240-9, 2776-1 #### [facility] ([id number]) [address], [address] [place] [address] CO2 [Moles/Vol] 31 mmol/L Normal 22-32 [facility] Comment on above: Performed By: #### C BCA, PINR, 97293-5, 87063-9, BMP, 92194-9, 2776-1 #### [facility] ([id number]) [address], [address] [place] [address] Creatinine [Mass/Vol] 0.87 mg/dL Normal 0.60-1.30 [facility] Comment on above: Result Comment: METH OD TRACEABLE TO IDMS STANDARD Performed By: #### C BCA, PINR, 14341-6, 39329-5, BMP, 75903-9, 2777-1 #### [facility] ([id number]) [address], [address] [place] [address] eGFR (CKD-EPI) NON-RACE DEPENDENT >90 Normal >59 [facility] Comment on above: Result Comment: Reported eGFR is based on the CKD-EPI 2020 equation that does not use a race coefficient. Performed By: #### C BCA, PINR, 14172-4, 70105-8, BMP, 12030-3, 2777-1 #### [facility] ([id number]) [address], [address] [place] [address] Glucose [Mass/Vol] 107 mg/dL High 65-99 [facility] Comment on above: Performed By: #### C BCA, PINR, 54749-9, 24939-3, BMP, 64963-6, 2776-1 #### [facility] ([id number]) [address], [address] [place] [address] Potassium [Moles/Vol] 3.7 mmol/L Normal 3.5-5.0 [facility] Comment on above: Performed By: #### C BCA, PINR, 16131-5, 23530-3, BMP, 70867-0, 2777-1 #### [facility] ([id number]) [address], [address] [place] [address] Sodium [Moles/Vol] 141 mmol/L Normal 134-146 [facility] Comment on above: Performed By: #### C BCA, PINR, 08894-6, 64639-4, BMP, 40010-4, 2777-1 #### [facility] ([id number]) [address], [address] [place] [address] Urea nitrogen [Mass/Vol] 14 mg/dL Normal 5-27 [facility] Comment on above: Performed By: #### C BCA, PINR, 20943-8, 76128-2, BMP, 77221-3, 2777-1 #### [facility] ([id number]) [address], [address] [address] CBC AND AUTO DIFFon 07-22-19 Erythrocyte distribution width (RBC) [Ratio] 14.5 % Normal 11.5-15.0 [facility] Comment on above: Performed By: #### C BCA, PINR, 16524-4, 44753-0, BMP, 00801-1, 2776-1 #### [facility] ([id number]) [address], [facility] [address] [place] [address] Hematocrit (Bld) [Volume fraction] 42.9 % Normal 39-49 [facility] Comment on above: Performed By: #### C BCA, PINR, 34702-7, 80934-9, BMP, 39507-5, 2776-1 #### [facility] ([id number]) [address] [address] [place] [address] Hemoglobin (Bld) [Mass/Vol] 14.4 g/dL Normal 13.0-17.0 [facility] Comment on above: Performed By: #### C BCA, PINR, 53665-9, 00931-2, BMP, 44394-1, 2777-1 #### [facility] ([id number]) [address] [address] Lymphocytes (Bld) [#/Vol] 1.4 10*3/uL Normal 1.0-3.5 [facility] Comment on above: Performed By: #### C BCA, PINR, 78467-8, 27235-0, BMP, 68252-0, 2777- #### [facility] ([id number]) [address], [address] [place] [address] Lymphocytes/100 WBC (Bld) 10.0 % Normal [facility] Comment on above: Performed By: #### C BCA, PINR, 23278-3, 34180-1, BMP, 31059-9, 2776- #### [facility] ([id number]) [address], [address] [place] [address] MCH (RBC) [Entitic mass] 31.5 pg Normal 27-34 [facility] Comment on above: Performed By: #### C BCA, PINR, 34005-0, 50318-6, BMP, 27345-7, 2776- #### [facility] ([id number]) [address], [address] [place] [address] MCHC (RBC) [Mass/Vol] 33.6 g/dL Normal 32-36 [facility] Comment on above: Performed By: #### C BCA, PINR, 70262-2, 41765-4, BMP, 23780-0, 2776- #### [facility] ([id number]) [address], [address] [place] [address] MCV (RBC) [Entitic vol] 94 fL Normal 80-100 [facility] Comment on above: Performed By: #### C BCA, PINR, 84596-1, 85674-0, BMP, 15902-7, 2776- #### [facility] ([id number]) [address], [address] [place] [address] Monocytes (Bld) [#/Vol] 0.9 10*3/uL Normal 0-0.9 [facility] Comment on above: Performed By: #### C BCA, PINR, 54920-7, 15780-7, BMP, 98716-1, 2776- #### [facility] ([id number]) [address], [address] [place] [address] Monocytes/100 WBC (Bld) 6.0 % Normal [facility] Comment on above: Performed By: #### C BCA, PINR, 48645-4, 41431-5, BMP, 90188-2, 2776-1 #### [facility] ([id number]) [address], [address] [place] [address] Neutrophils (Bld) [#/Vol] 11.9 10*3/uL High 1.5-6.6 [facility] Comment on above: Performed By: #### C BCA, PINR, 47645-1, 02452-3, BMP, 53517-5, 2776-1 #### [facility] ([id number]) [address], [address] [place] [address] Platelet mean volume (Bld) [Entitic vol] 8.5 fL Normal 7-12 [facility] Comment on above: Performed By: #### C BCA, PINR, 00753-3, 53622-7, BMP, 50701-5, 2776-1 #### [facility] ([id number]) [address], [address] [place] [address] Platelets (Bld) [#/Vol] 240 10*3/uL Normal 150-450 [facility] Comment on above: Performed By: #### C BCA, PINR, 91607-8, 57574-6, BMP, 75646-6, 2776-1 #### [facility] ([id number]) [address], [address] [place] [address] RBC COUNT 4.57 X10E12/L Normal 4.10-5.70 [facility] Comment on above: Performed By: #### C BCA, PINR, 99286-3, 87579-7, BMP, 36275-5, 2776-1 #### [facility] ([id number]) [address], [address] [place] [address] RBC morphology finding Nom (Bld) NORMAL Normal [facility] Comment on above: Performed By: #### C BCA, PINR, 48590-9, 86487-8, BMP, 83271-7, 2777-1 #### [facility] ([id number]) [address], [address] [place] [address] SEG NEUTROPHIL 84.0 % Normal [facility] Comment on above: Performed By: #### C BCA, PINR, 26700-8, 76861-2, BMP, 77287-4, 2776-1 #### [facility] ([id number]) [address], [address] [place] [address] WBC (Bld) [#/Vol] 14.2 10*3/uL High 4.0-11.0 [facility] Comment on above: Performed By: #### C BCA, PINR, 79962-1, 95828-3, BMP, 53545-1, 2776-1 #### [facility] ([id number]) [address], [address] [place] [address] MAGNESIUMon 07-22-2023 Magnesium [Mass/Vol] 2.0 mg/dL Normal 1.8-2.6 [facility] Comment on above: Performed By: #### C BCA, PINR, 58253-4, 43797-0, BMP, 64224-2, 2776-1 #### [facility] ([id number]) [address], [address] [place] [address] PHOSPHORUSon 07-22-2023 Phosphate [Mass/Vol] 2.7 mg/dL Normal 2.4-4.9 [facility] Comment on above: Performed By: #### C BCA, PINR, 82039-7, 02677-3, BMP, 66612-2, 2777-1 #### [facility] ([id number]) [address], [address] [place] [address] Phosphate [Mass/Vol] 1.7 mg/dL Low 2.4-4.9 [facility] Comment on above: Performed By: #### C BCA, PINR, 37759-0, 03416-7, BMP, 90670-9, 2776-1 #### [facility] ([id number]) [address], [address] [place] [address] POTASSIUMon 07-22-2023 Potassium [Moles/Vol] 4.0 mmol/L Normal 3.5-5.0 [facility] Comment on above: Performed By: #### C BCA, PINR, 43952-9, 75131-6, BMP, 93274-4, 2776-1 #### [facility] ([id number]) [address], [address] [place] [address] BASIC METABOLIC PANLon 07-20 Anion gap [Moles/Vol] 7 mmol/L Normal 5-15 [facility] Comment on above: Performed By: #### C BCA, PINR, 54963-8, 87302-2, BMP, 57071-9, 2776-1 #### [facility] ([id number]) [address], [address] [place] [address] Calcium [Mass/Vol] 8.9 mg/dL Normal 8.5-10.5 [facility] Comment on above: Performed By: #### C BCA, PINR, 76835-2, 13379-9, BMP, 67709-8, 2776-1 #### [facility] ([id number]) [address], [address] [place] [address] Chloride [Moles/Vol] 102 mmol/L Normal 98-109 [facility] Comment on above: Performed By: #### C BCA, PINR, 60552-5, 00818-3, BMP, 57828-1, 2776-1 #### [facility] ([id number]) [address], [address] [place] [address] CO2 [Moles/Vol] 31 mmol/L Normal 22-32 [facility] Comment on above: Performed By: #### C BCA, PINR, 60546-7, 17190-1, BMP, 40362-3, 2776-1 #### [facility] ([id number]) [address], [address] [place] [address] Creatinine [Mass/Vol] 0.84 mg/dL Normal 0.60-1.30 [facility] Comment on above: Result Comment: METH OD TRACEABLE TO IDMS STANDARD Performed By: #### C BCA, PINR, 35091-4, 44005-8, BMP, 93058-5, 2776- #### [facility] ([id number]) [address], [address] [place] [address] eGFR (CKD-EPI) NON-RACE DEPENDENT >90 Normal >59 [facility] Comment on above: Result Comment: Reported eGFR is based on the CKD-EPI 2020 equation that does not use a race coefficient. Performed By: #### C BCA, PINR, 49318-3, 09352-2, BMP, 41128-3, 2776-1 #### [facility] ([id number]) [address], [address] [place] [address] Glucose [Mass/Vol] 133 mg/dL High 65-99 [facility] Comment on above: Performed By: #### C BCA, PINR, 30843-6, 68050-4, BMP, 17982-3, 2776-1 #### [facility] ([id number]) [address], [address] [place] [address] Potassium [Moles/Vol] 4.0 mmol/L Normal 3.5-5.0 [facility] Comment on above: Performed By: #### C BCA, PINR, 10405-4, 68541-3, BMP, 09721-9, 2776-1 #### [facility] ([id number]) [address], [address] [place] [address] Sodium [Moles/Vol] 140 mmol/L Normal 134-146 [facility] Comment on above: Performed By: #### C BCA, PINR, 24658-2, 61583-1, BMP, 88093-7, 2776-1 #### [facility] ([id number]) [address], [address] [place] [address] Urea nitrogen [Mass/Vol] 11 mg/dL Normal 5-27 [facility] Comment on above: Performed By: #### C BCA, PINR, 61889-8, 07366-5, BMP, 85897-4, 2776-1 #### [facility] ([id number]) [address], [address] [place] [address] CBC AND AUTO DIFFon 07-21-19 Erythrocyte distribution width (RBC) [Ratio] 14.7 % Normal 11.5-15.0 [facility] Comment on above: Performed By: #### C BCA, PINR, 57458-6, 67191-5, BMP, 52937-9, 2776-1 #### [facility] ([id number]) [address], [address] [place] [address] Hematocrit (Bld) [Volume fraction] 42.5 % Normal 39-49 [facility] Comment on above: Performed By: #### C BCA, PINR, 96595-0, 42504-3, BMP, 40517-4, 2776-1 #### [facility] ([id number]) [address], [address] [place] [address] Hemoglobin (Bld) [Mass/Vol] 14.2 g/dL Normal 13.0-17.0 [facility] Comment on above: Performed By: #### C BCA, PINR, 57082-6, 97943-1, BMP, 89004-4, 2776-1 #### [facility] ([id number]) [address], [address] [place] [address] Lymphocytes (Bld) [#/Vol] 0.8 10*3/uL Low 1.0-3.5 [facility] Comment on above: Performed By: #### C BCA, PINR, 18686-8, 09031-7, BMP, 80307-2, 2776-1 #### [facility] ([id number]) [address], [facility] [address] [place] [address] Lymphocytes/100 WBC (Bld) 5.0 % Normal [facility] Comment on above: Performed By: #### C BCA, PINR, 21528-0, 60954-8, BMP, 86867-0, 2776- #### [facility] ([id number]) [address] [address] [place] [address] MCH (RBC) [Entitic mass] 31.3 pg Normal 27-34 [facility] Comment on above: Performed By: #### C BCA, PINR, 73732-2, 34916-3, BMP, 98747-4, 2776- #### [facility] ([id number]) [address] [address] MCHC (RBC) [Mass/Vol] 33.3 g/dL Normal 32-36 [facility] Comment on above: Performed By: #### C BCA, PINR, 64075-4, 19369-4, BMP, 35491-2, 2776- #### [facility] ([id number]) [address] [address] [place] [address] MCV (RBC) [Entitic vol] 94 fL Normal 80-100 [facility] Comment on above: Performed By: #### C BCA, PINR, 61745-4, 24787-2, BMP, 41667-9, 2776-1 #### [facility] ([id number]) [address], [address] [place] [address] Monocytes (Bld) [#/Vol] 2.0 10*3/uL High 0-0.9 [facility] Comment on above: Performed By: #### C BCA, PINR, 63067-3, 83224-1, BMP, 81358-5, 2777-1 #### [facility] ([id number]) [address], [address] [place] [address] Monocytes/100 WBC (Bld) 12.0 % Normal [facility] Comment on above: Performed By: #### C BCA, PINR, 82749-5, 26451-7, BMP, 25377-2, 2777-1 #### [facility] ([id number]) [address], [address] [place] [address] Neutrophils (Bld) [#/Vol] 13.8 10*3/uL High 1.5-6.6 [facility] Comment on above: Performed By: #### C BCA, PINR, 89888-3, 91998-7, BMP, 23911-8, 2777-1 #### [facility] ([id number]) [address], [address] [place] [address] Platelet mean volume (Bld) [Entitic vol] 8.6 fL Normal 7-12 [facility] Comment on above: Performed By: #### C BCA, PINR, 87307-1, 26041-3, BMP, 81708-7, 2777-1 #### [facility] ([id number]) [address], [address] [place] [address] Platelets (Bld) [#/Vol] 212 10*3/uL Normal 150-450 [facility] Comment on above: Performed By: #### C BCA, PINR, 54950-0, 72779-7, BMP, 91036-3, 2777-1 #### [facility] ([id number]) [address], [address] [place] [address] RBC COUNT 4.53 X10E12/L Normal 4.10-5.70 [facility] Comment on above: Performed By: #### C BCA, PINR, 29603-8, 71347-9, BMP, 79813-4, 2777-1 #### [facility] ([id number]) [address], [address] [place] [address] RBC morphology finding Nom (Bld) NORMAL Normal [facility] Comment on above: Performed By: #### C BCA, PINR, 35853-3, 06490-4, BMP, 38481-4, 2776-1 #### [facility] ([id number]) [address], [address] [place] [address] SEG NEUTROPHIL 83.0 % Normal [facility] Comment on above: Performed By: #### C BCA, PINR, 15597-7, 63235-2, BMP, 01768-5, 2776-1 #### [facility] ([id number]) [address], [address] [place] [address] WBC (Bld) [#/Vol] 16.6 10*3/uL High 4.0-11.0 [facility] Comment on above: Performed By: #### C BCA, PINR, 07600-1, 67631-9, BMP, 01198-5, 2776-1 #### [facility] ([id number]) [address], [address] [place] [address] MAGNESIUMon 07-21-2023 Magnesium [Mass/Vol] 1.9 mg/dL Normal 1.8-2.6 [facility] Comment on above: Performed By: #### C BCA, PINR, 23815-2, 17787-9, BMP, 81879-3, 2776-1 #### [facility] ([id number]) [address], [address] [place] [address] PHOSPHORUSon 07-21-2023 Phosphate [Mass/Vol] 1.8 mg/dL Low 2.4-4.9 [facility] Comment on above: Performed By: #### C BCA, PINR, 94242-8, 29840-7, BMP, 07873-4, 2776-1 #### [facility] ([id number]) [address], [address] [place] [address] BASIC METABOLIC PANLon 07-19 Anion gap [Moles/Vol] 9 mmol/L Normal 5-15 [facility] Comment on above: Performed By: #### C BCA, PINR, 96764-5, 36937-6, BMP, 45861-9, 2776-1 #### [facility] ([id number]) [address], [address] [place] [address] Calcium [Mass/Vol] 8.8 mg/dL Normal 8.5-10.5 [facility] [place] Comment on above: Performed By: #### C BCA, PINR, 81473-3, 42382-5, BMP, 36288-1, 2776-1 #### [facility] ([id number]) [address], [address] [place] [address] Chloride [Moles/Vol] 104 mmol/L Normal 98-109 [facility] Comment on above: Performed By: #### C BCA, PINR, 17737-1, 26944-6, BMP, 92218-6, 2776-1 #### [facility] ([id number]) [address], [address] [place] [address] CO2 [Moles/Vol] 26 mmol/L Normal 22-32 [facility] Comment on above: Performed By: #### C BCA, PINR, 35771-1, 39142-0, BMP, 07899-1, 2776-1 #### [facility] ([id number]) [address], [address] [place] [address] Creatinine [Mass/Vol] 0.86 mg/dL Normal 0.60-1.30 [facility] Comment on above: Result Comment: METH OD TRACEABLE TO IDMS STANDARD Performed By: #### C BCA, PINR, 79937-3, 13821-2, BMP, 00364-2, 2777-1 #### [facility] ([id number]) [address], [address] [place] [address] eGFR (CKD-EPI) NON-RACE DEPENDENT >90 Normal >59 [facility] Comment on above: Result Comment: Reported eGFR is based on the CKD-EPI 2020 equation that does not use a race coefficient. Performed By: #### C BCA, PINR, 00997-2, 81860-5, BMP, 30983-8, 2776-1 #### [facility] ([id number]) [address], [address] [place] [address] Glucose [Mass/Vol] 139 mg/dL High 65-99 [facility] [place] Comment on above: Performed By: #### C BCA, PINR, 52156-1, 86811-6, BMP, 32433-2, 2776-1 #### [facility] ([id number]) [address], [address] [place] [address] Potassium [Moles/Vol] 3.7 mmol/L Normal 3.5-5.0 [facility] Comment on above: Performed By: #### C BCA, PINR, 59339-4, 25112-2, BMP, 35779-8, 2776-1 #### [facility] ([id number]) [address], [address] [place] [address] Sodium [Moles/Vol] 139 mmol/L Normal 134-146 [facility] [place] Comment on above: Performed By: #### C BCA, PINR, 36660-0, 08823-3, BMP, 34881-6, 2777-1 #### [facility] ([id number]) [address] [address] [place] [address] Urea nitrogen [Mass/Vol] 13 mg/dL Normal 5-27 [facility] Comment on above: Performed By: #### C BCA, PINR, 29113-1, 96368-1, BMP, 53760-9, 2777-1 #### [facility] ([id number]) [address] [address] CBC AND AUTO DIFFon 07-20-19 24 Band form neutrophils/100 WBC (Bld) 3.8 % Normal [facility] Comment on above: Performed By: #### C BCA, PINR, 00644-4, 74072-8, BMP, 04684-1, 2776-1 #### [facility] ([id number]) [address] [address] Erythrocyte distribution width (RBC) [Ratio] 14.2 % Normal 11.5-15.0 [facility] Comment on above: Performed By: #### C BCA, PINR, 57151-8, 11931-1, BMP, 34251-1, 7-1 #### [facility] ([id number]) [address] [address] Hematocrit (Bld) [Volume fraction] 47.6 % Normal 39-49 [facility] Comment on above: Performed By: #### C BCA, PINR, 58134-6, 38512-4, BMP, 95711-8, 2776-1 #### [facility] ([id number]) [address] [address] Hemoglobin (Bld) [Mass/Vol] 15.8 g/dL Normal 13.0-17.0 [facility] Comment on above: Performed By: #### C BCA, PINR, 56854-2, 07386-7, BMP, 53751-2, 2777-1 #### [facility] ([id number]) [address] [address] [place] [address] LYMPHOCYTE, ATYPICAL 1.0 % Normal [facility] Comment on above: Performed By: #### C BCA, PINR, 39623-1, 04282-4, BMP, 97355-2, 2776- #### [facility] ([id number]) [address] [address] [place] [address] Lymphocytes (Bld) [#/Vol] 1.3 10*3/uL Normal 1.0-3.5 [facility] Comment on above: Performed By: #### C BCA, PINR, 88166-8, 37246-8, BMP, 65415-1, 2776- #### [facility] ([id number]) [address] [address] Lymphocytes/100 WBC (Bld) 5.7 % Normal [facility] Comment on above: Performed By: #### C BCA, PINR, 19496-9, 48633-2, BMP, 04843-6, 2776-04 #### [facility] ([id number]) [address] [address] MCH (RBC) [Entitic mass] 31.0 pg Normal 27-34 [facility] Comment on above: Performed By: #### C BCA, PINR, 81666-5, 39077-5, BMP, 42546-5, 2776- #### [facility] ([id number]) [address] [address] MCHC (RBC) [Mass/Vol] 33.1 g/dL Normal 32-36 [facility] Comment on above: Performed By: #### C BCA, PINR, 41761-3, 81025-6, BMP, 45981-0, 2776- #### [facility] ([id number]) [address] [place] [address] MCV (RBC) [Entitic vol] 94 fL Normal 80-100 [facility] Comment on above: Performed By: #### C BCA, PINR, 96169-7, 79196-0, BMP, 80413-8, 2776-1 #### [facility] ([id number]) [address], [address] [place] [address] Monocytes (Bld) [#/Vol] 2.5 10*3/uL High 0-0.9 [facility] Comment on above: Performed By: #### C BCA, PINR, 14104-3, 06634-3, BMP, 42246-3, 2776-1 #### [facility] ([id number]) [address], [address] [place] [address] Monocytes/100 WBC (Bld) 13.3 % Normal [facility] Comment on above: Performed By: #### C BCA, PINR, 88057-9, 21670-3, BMP, 89025-9, 2776-1 #### [facility] ([id number]) [address], [address] [place] [address] Neutrophils (Bld) [#/Vol] 14.9 10*3/uL High 1.5-6.6 [facility] Comment on above: Performed By: #### C BCA, PINR, 01483-6, 89358-5, BMP, 38354-5, 2776-1 #### [facility] ([id number]) [address], [address] [place] [address] Platelet mean volume (Bld) [Entitic vol] 8.7 fL Normal 7-12 [facility] Comment on above: Performed By: #### C BCA, PINR, 11082-7, 88797-9, BMP, 91977-0, 2776-1 #### [facility] ([id number]) [address], [address] [place] [address] Platelets (Bld) [#/Vol] 234 10*3/uL Normal 150-450 [facility] Comment on above: Performed By: #### C BCA, PINR, 55787-0, 54301-1, BMP, 94568-6, 2777-1 #### [facility] ([id number]) [address], [address] [place] [address] RBC COUNT 5.08 X10E12/L Normal 4.10-5.70 [facility] Comment on above: Performed By: #### C BCA, PINR, 64048-2, 96932-0, BMP, 19367-2, 2777-1 #### [facility] ([id number]) [address], [address] [place] [address] RBC morphology finding Nom (Bld) NORMAL Normal [facility] Comment on above: Performed By: #### C BCA, PINR, 67536-8, 87815-4, BMP, 09214-3, 2776-1 #### [facility] ([id number]) [address], [address] [place] [address] SEG NEUTROPHIL 76.2 % Normal [facility] Comment on above: Performed By: #### C BCA, PINR, 65747-5, 46560-5, BMP, 18953-7, 7-1 #### [facility] ([id number]) [address], [address] [place] [address] WBC (Bld) [#/Vol] 18.7 10*3/uL High 4.0-11.0 [facility] Comment on above: Performed By: #### C BCA, PINR, 77954-9, 27462-6, BMP, 00500-4, 2777-1 #### [facility] ([id number]) [address], [address] [place] [address] MAGNESIUMon 07-20-2023 Magnesium [Mass/Vol] 2.0 mg/dL Normal 1.8-2.6 [facility] Comment on above: Performed By: #### 1 9123-9 #### [facility] ([id number]) [address], [address] [place] [address] Magnesium [Mass/Vol] 1.7 mg/dL Low 1.8-2.6 [facility] Comment on above: Performed By: #### C BCA, PINR, 42886-4, 15747-4, BMP, 00594-6, 2777-1 #### [facility] ([id number]) [address], [address] [place] [address] Natriuretic peptide B [Mass/ Vol]on 07-20-2023 Natriuretic peptide B (Bld) [Mass/Vol] 28 pg/mL Normal <100.0 [facility] Comment on above: Performed By: #### 3 0934-4 #### [facility] ([id number]) [address], [address] [place] [address] PHOSPHORUSon 07-20-2023 Phosphate [Mass/Vol] 2.7 mg/dL Normal 2.4-4.9 [facility] Comment on above: Performed By: #### C BCA, PINR, 39437-7, 84144-6, BMP, 13023-3, 2777-1 #### [facility] ([id number]) [address], [address] [place] [address] PROTIME AND INRon 07-20-2023 INR Coag (PPP) [Relative time] 1.1 {INR} Normal 0.8-1.1 [facility] Comment on above: Performed By: #### P INR #### [facility] ([id number]) [address] [address] [place] [address] PT Coag (PPP) [Time] 12.5 s Normal 9.8-13.2 [facility] Comment on above: Performed By: #### P INR #### [facility] ([id number]) [address] [place] [address], [address] [place] [address] INR Coag (PPP) [Relative time] 1.0 {INR} Normal 0.8-1.1 [facility] Comment on above: Performed By: #### C BCA, PINR, 59509-4, 52840-2, BMP, 45970-9, 2777-1 #### [facility] ([id number]) [address] [place] [address] [address] [place] [address] PT Coag (PPP) [Time] 12.0 s Normal 9.8-13.2 [facility] Comment on above: Performed By: #### C BCA, PINR, 03521-7, 30610-1, BMP, 68312-4, 7-1 #### [facility] ([id number]) [address] [place] [address] Surgical Pathologyon 024 Surgical Pathology Normal [facility] Comment on above: Result Comment: [facility] [address] [place] [address] Surgical Pathology Consultation Patient Name:CIPRIANO ARZATE:1960 (Age: 63)Gender:MTaken:4Reported:07/23/2023hysician(s):Evan Louis MD ([phone])Copy To: Rec. #:[id number]: #[id number] Final Pathologic Diagnosis Colon, sigmoid, partial resection: - Gross and microscopic evidence of perforated diverticulum with associated abscess formation - Diverticulitis and diverticulosis - Five benign lymph nodes (0/5) - Margins viable Report Electronically Signed Out nrd/07/23/2023Hillary Becker MD [facility] [place] [address], License number: [id number]. Clinical History Perforated diverticulitis. Gross Description Received in formalin labeled WHITE, sigmoid colon resection is an unoriented portion of colon measuring 12.0 cm in length and 3.0 cm in internal circumference closed with two metallic staple lines (arbitrarily differentiated as margin 1 and margin 2). The retroperitoneal surface exhibits ortiz-white exudate and hemorrhagic adhesions. Upon sectioning the specimen, there is a centrally located diverticulum continuous to a subserosal abscess cavity filled with yellow, translucent thin fluid measuring 4.0 x 3.0 x 2.0 cm. The subserosal abscess cavity extends to the fat. Overlying the abscess cavity are focal areas of submucosal edema with a wall thickness of up to 1.0 cm. Multiple additional intact diverticula are identified throughout the specimen. The remainder of the mucosa is ortiz-pink with a normal folding pattern and slightly edematous with an average wall thickness of 0.3 cm. The attached circumferentially pericolic fat extends up to 7.0 cm. Within the pericolic fat five prominent possible lymph nodes are identified measuring up to 0.7 cm. Heel Layer sections are submitted as follows: A Margin 1. en face B Margin 2, en face C Abscess cavity D-E Diverticulum continuous to abscess cavity, bisected (black ink represents continuity) F Additional diverticulum, intact G Retroperitoneal exudate and adhesion H Five lymph nodes, intact (8, ss, [id number], m1) EFC, DD efc/07/21/2023SSI Microscopic Findings Microscopic examination performed. Specimen(s) Received Sigmoid colon resection Fee Codes(s): 1; 21505 TROPONIN Ion 07-20-2023 Troponin I.cardiac [Mass/Vol] 0.03 ng/mL Normal 0.00-0.04 [facility] Comment on above: Performed By: #### C BCA, PINR, 23841-8, 35357-2, BMP, , 2776-04 #### [facility] ([id number]) [address] [place] [address] aPTT Coag (PPP) [Time]on aPTT Coag (Bld) [Time] 31 s Normal 26-37 [facility] Comment on above: Performed By: #### C BCA, PINR, 06187-9, 61487-4, BMP, 78628-7, 2776- #### [facility] ([id number]) [address] [place] [address], [address] [place] [address] CBC AUTO DIFFon 09-20-2022 BASO # 0.1 103/ul Normal 0.0-0.1 [facility] Comment on above: Performed By: #### C BC #### [facility] [address] [address] [address] Leta Antonio Basophils/100 WBC (Bld) 0.5 % Normal 0.2-2.0 [facility] Comment on above: Performed By: #### C BC #### [facility] [address] [address] [address] Leta Antonio EO # 0.0 103/ul Normal 0.0-0.7 [facility] Comment on above: Performed By: #### C BC #### [facility] [address] [address] [address] Leat Antonio Eosinophils/100 WBC (Bld) 0.1 % Critically low 0.9-7.0 [facility] Comment on above: Performed By: #### C BC #### [facility] [address] [address] [address] Leta Antonio Erythrocyte distribution width (RBC) [Ratio] 13.9 % Normal 11.0-15.0 [facility] Comment on above: Performed By: #### C BC #### [facility] [address] [address] [address] Leta Antonio Hematocrit (Bld) [Volume fraction] 49.5 % Normal 42.0-54.0 [facility] Comment on above: Performed By: #### C BC #### [facility] [address] [address] [address] Leta Antonio Hemoglobin (Bld) [Mass/Vol] 16.5 g/dL Normal 14.0-18.0 [facility] Comment on above: Performed By: #### C BC #### [facility] [address] [address] [address] Leta Antonio IG # 0.03 10e3/ul Normal 0.00-0.03 [facility] Comment on above: Performed By: #### C BC #### [facility] [address] [address] [address] Leta Antonio IG % 0.3 % Normal 0.0-0.5 [facility] Comment on above: Performed By: #### C BC #### [facility] [address] [place] [address] Dr. Leta Antonio LYMPH # 1.1 103/ul Critically low 1.2-3.8 [facility] Comment on above: Performed By: #### C BC #### [facility] [address] [place] [address] Dr. Leta Antonio Lymphocytes/100 WBC (Bld) 11.3 % Critically low 20.5-60.0 [facility] Comment on above: Performed By: #### C BC #### [facility] [address] [place] [address] Dr. Leta Antonio MANUAL DIFF REQ NO Normal [facility] Comment on above: Performed By: #### C BC #### [facility] [address] [place] [address] Dr. Leta Antonio MCH (RBC) [Entitic mass] 30.6 pg Normal 25.9-34.0 [facility] Comment on above: Performed By: #### C BC #### [facility] [address] [place] [address] Dr. Leta Antonio MCHC (RBC) [Mass/Vol] 33.3 g/dL Normal 29.9-35.2 [facility] Comment on above: Performed By: #### C BC #### [facility] [address] [place] [address] Dr. Leta Antonio MCV (RBC) [Entitic vol] 91.7 fL Normal 80.0-94.0 [facility] Comment on above: Performed By: #### C BC #### [facility] [address] [place] [address] Dr. Leta Antonio MONO # 1.3 103/ul Critically high 0.3-0.8 [facility] Comment on above: Performed By: #### C BC #### [facility] [address] [place] [address] Dr. Leta Antonio Monocytes/100 WBC (Bld) 13.2 % Critically high 1.7-12.0 [facility] Comment on above: Performed By: #### C BC #### [facility] [address] [place] [address] Dr. Leta Antonio NEUT # 7.4 103/ul Critically high 1.4-6.5 [facility] Comment on above: Performed By: #### C BC #### [facility] [address] [place] [address] Dr. Leta Antonio Neutrophils/100 WBC (Bld) 74.6 % Normal 43.0-75.0 [facility] Comment on above: Performed By: #### C BC #### [facility] [address] [place] [address] Dr. Leta Antonio Platelet mean volume (Bld) [Entitic vol] 10.0 fL Normal 9.5-13.5 [facility] Comment on above: Performed By: #### C BC #### [facility] [address] [place] [address] Dr. Leta Antonio PLT 245 103/ul Normal 150-450 [facility] Comment on above: Performed By: #### C BC #### [facility] [address] [place] [address] Dr. Leta Antonio RBC 5.40 106/ul Normal 4.70-6.10 [facility] Comment on above: Performed By: #### C BC #### [facility] [address] [place] [address] Dr. Leta Antonio WBC 10.0 103/ul Normal 4.0-11.0 [facility] Comment on above: Performed By: #### C BC #### [facility] [address] [place] [address] ABD/PELV W CONon 09-21-[address] ABD/PELV W CON EXAM: CT ABD/PELV W CON HISTORY: GENERALIZED ABDOMINAL PAIN COMPARISON: 05/14/2020. TECHNIQUE: Axial CT imaging was performed through the abdomen and pelvis with intravenous contrast. Multiplanar reformats were performed. Dose reduction techniques were achieved by using automated exposure control and/or adjustment of mA and/or kV according to patient size and/or use of iterative reconstruction technique. FINDINGS: Lung bases: Lung bases are clear. No pleural effusion. GI upper: Unremarkable. Liver: Normal size and contour. Gallbladder: The gallbladder is contracted. No cholelithiasis. Biliary system: No intra or extrahepatic biliary ductal dilatation. Pancreas: Unremarkable. Spleen: Normal size. Adrenal glands: Normal adrenal glands. Kidneys/ureters: Normal contours. Small low-density foci bilaterally are too small to definitively characterize, but likely represent cysts No hydronephrosis or visible mass. No nephrolithiasis. Both ureters are normal in caliber and course to the bladder. Vessels: No aneurysm. Lymph Nodes: No lymphadenopathy. Small bowel: No wall thickening or dilatation. Colon: There are descending and sigmoid colon diverticuli. Circumferential wall thickening is seen within the sigmoid with associated adjacent fat stranding. No pneumoperitoneum or localized fluid collection. Appendix: Appendix is identified with normal appearance. Peritoneal cavity: No free fluid or pneumoperitoneum. Lower : Unremarkable. Bones: No acute bony abnormality. Soft tissues: No acute finding. Additional findings: None. IMPRESSION: Left colonic diverticulosis with findings compatible with sigmoid diverticulitis. Electronically authenticated by: Hardik LUNDBERG Date: 2022-09-20 16:58 Normal [facility] LACTATE/LACTIC ACIDon 2022 Lactate [Moles/Vol] 1.1 mmol/L Normal 0.4-2.0 [facility] Comment on above: Performed By: #### L ACT #### [facility] [address] [place] [address] Dr. Leta Antonio LIPASEon 09-20-2022 Lipase [Catalytic activity/Vol] 161.0 U/L Normal 73.0-393.0 [facility] Comment on above: Performed By: #### C MP, LIPA, HSTROPN #### [facility] [address] [place], [place] [address] Dr. Leta Antonio PROF 14(COMP METB)on 023 Albumin [Mass/Vol] 3.8 g/dL Normal 3.4-5.0 [facility] Comment on above: Performed By: #### C MP, LIPA, HSTROPN #### [facility] [address] [place] [address] Dr. Leta Antonio Albumin/Globulin [Mass ratio] 0.9 {ratio} Normal [facility] Comment on above: Performed By: #### C MP, LIPA, HSTROPN #### [facility] [address] [place] [address] Dr. Leta Antonio ALP [Catalytic activity/Vol] 81 U/L Normal 46-116 [facility] Comment on above: Performed By: #### C MP, LIPA, HSTROPN #### [facility] [address] [place] [address] Dr. Leta Antonio ALT [Catalytic activity/Vol] 30 U/L Normal 16-63 [facility] Comment on above: Performed By: #### C MP, LIPA, HSTROPN #### [facility] [address] [place] [address] Dr. Leta Antonio Anion gap [Moles/Vol] 14.2 mmol/L Normal [facility] Comment on above: Performed By: #### C MP, LIPA, HSTROPN #### [facility] [address] [place] [address] Dr. Leta Antonio AST [Catalytic activity/Vol] 20 U/L Normal 15-37 [facility] Comment on above: Performed By: #### C MP, LIPA, HSTROPN #### [facility] [address] [place] [address] Dr. Leta Antonio Bilirubin [Mass/Vol] 0.5 mg/dL Normal 0.2-1.0 [facility] Comment on above: Performed By: #### C MP, LIPA, HSTROPN #### [facility] [address] [place] [address] Dr. Leta Antonio Calcium [Mass/Vol] 10.1 mg/dL Normal 8.5-10.1 [facility] Comment on above: Performed By: #### C MP, LIPA, HSTROPN #### [facility] [address] [address] [address] Leta Antonio Chloride [Moles/Vol] 102 mmol/L Normal 98-107 [facility] Comment on above: Performed By: #### C MP, LIPA, HSTROPN #### [facility] [address] [address] [address] Leta Antonio CO2 [Moles/Vol] 28.5 mmol/L Normal 21.0-32.0 [facility] Comment on above: Performed By: #### C MP, LIPA, HSTROPN #### [facility] [address] [address] [address] Leta Antonio Creatinine [Mass/Vol] 1.20 mg/dL Normal 0.70-1.30 [facility] Comment on above: Performed By: #### C MP, LIPA, HSTROPN #### [facility] [address] [place] [address] Dr. Leta Antonio EGFR-AF MONTENEGRIN >60 Normal >=60 [facility] Comment on above: Performed By: #### C MP, LIPA, HSTROPN #### [facility] [address] [place] [address] Dr. Leta Antonio EGFR-NON AF MONTENEGRIN >60 Normal >=60 [facility] Comment on above: Performed By: #### C MP, LIPA, HSTROPN #### [facility] [address] [address] [address] Leta Antonio Globulin (S) [Mass/Vol] 4.1 g/dL Normal [facility] Comment on above: Performed By: #### C MP, LIPA, HSTROPN #### [facility] [address] [address] [address] Leta Antonio Glucose [Mass/Vol] 119 mg/dL Critically high 74-106 T [facility] Comment on above: Performed By: #### C MP, LIPA, HSTROPN #### [facility] [address] [place] [address] Dr. Leta Antonio Potassium [Moles/Vol] 3.7 mmol/L Normal 3.5-5.1 [facility] Comment on above: Performed By: #### C MP, LIPA, HSTROPN #### [facility] [address] [address] [address] Leta Antonio Protein [Mass/Vol] 7.9 g/dL Normal 6.4-8.2 [facility] Comment on above: Performed By: #### C MP, LIPA, HSTROPN #### [facility] [address] [place] [address] Dr. Leta Antonio Sodium [Moles/Vol] 141 mmol/L Normal 136-145 [facility] Comment on above: Performed By: #### C MP, LIPA, HSTROPN #### [facility] [address] [place] [address] Dr. Leta Antonio Urea nitrogen [Mass/Vol] 21.0 mg/dL Critically high 7.0-18.0 [facility] Comment on above: Performed By: #### C MP, LIPA, HSTROPN #### [facility] [address] [place] [address] Dr. Leta Antonio Urea nitrogen/Creatinin e [Mass ratio] 17.5 mg/mg Normal [facility] Comment on above: Performed By: #### C MP, LIPA, HSTROPN #### [facility] [address] [place] [address] Dr. Leta Antonio TROPONIN, HIGH SENSITIVITYon 09-20-2022 HSTROP 5.2 pg/mL Normal 4.0-76.1 [facility] Comment on above: Result Comment: CUT- OFF POINTS HAVE BEEN ESTABLISHED BASED ON THE FOURTH UNIVERSAL DEFINITIONS OF MYOCARDIAL INFARCTION. THE UPPER REFERENCE LIMIT (URL) OF TROPONIN, DEFINED THE 99TH PERCENTILE OF cTnI DISTRIBUTION IN A REFERENCE POPULATION, HAS BEEN CONFIRMED THE DECISION THRESHOLD FOR LA DIAGNOSIS. Performed By: #### C MP, LIPA, HSTROPN #### [facility] [address] [place] [address] Dr. Leta Antonio Vital Signs Date Time Vital Sign Value Performing Clinician Alexander randall 08-03-2024 14:19-0400 Body mass index (BMI) [Ratio] 25.6 kg/m2 Yissel Arevalo [employer] PROFESSIONAL Work Phone: [facility] 08-03-2024 14:19-0400 Body temperature 98.49 [degF] Yissel Sauerz [employer] PROFESSIONAL Work Phone: [facility] 08-03-2024 14:19-0400 Body weight 80.92 kg Yissel Arevalo [employer] PROFESSIONAL Work Phone: [facility] 08-03-2024 14:19-0400 Diastolic blood pressure 84 mm[Hg] Yissel Sauerz [employer] PROFESSIONAL Work Phone: [facility] 08-03-2024 14:19-0400 Heart rate 94 /min Yissel Arevalo [employer] PROFESSIONAL Work Phone: [facility] 08-03-2024 14:19-0400 SaO2% (BldA) [Mass fraction] 96 % Yissel Arevalo [employer] RESOURCES PROFESSIONAL Work Phone: [facility] 08-03-2024 14:19-0400 Systolic blood pressure 140 mm[Hg] Yissel Sauerz [employer] RESOURCES PROFESSIONAL Work Phone: [facility] 05-03-2024 10:45-0500 Body height 177.8 cm Frida Dorman [employer]OURCES PROFESSIONAL Work Phone: [facility] 05-03-2024 10:45-0500 Body mass index (BMI) [Ratio] 24.97 kg/m2 Frida Dorman [employer] PROFESSIONAL Work Phone: [facility] 05-03-2024 10:45-0500 Body temperature 98.71 [degF] Frida Dorman [employer] PROFESSIONAL Work Phone: [facility] 05-03-2024 10:45-0500 Body weight 78.93 kg Frida Dorman [employer] PROFESSIONAL Work Phone: [facility] 05-03-2024 10:45-0500 Diastolic blood pressure 80 mm[Hg] Frida Dorman [employer] PROFESSIONAL Work Phone: [facility] 05-03-2024 10:45-0500 Heart rate 110 /min Frida Kearneypatrick [employer] PROFESSIONAL Work Phone: [facility] 05-03-2024 10:45-0500 Respiratory rate 18 /min Frida Kearneypatrick [employer] RESOURCES PROFESSIONAL Work Phone: [facility] 05-03-2024 10:45-0500 SaO2% (BldA) [Mass fraction] 96 % Frida Kearneypatrick [employer]OURCES PROFESSIONAL Work Phone: [facility] 05-03-2024 10:45-0500 Systolic blood pressure 122 mm[Hg] Frida Kearneypatrick [employer] RESOURCES PROFESSIONAL Work Phone: [facility] 02-06-2024 11:19-0400 Body height 177.8 cm [facility] 02-06-2024 11:19-0400 Body mass index (BMI) [Ratio] 24.33 kg/m2 [facility] [address] [place] [address] 02-06-2024 11:19-0400 Body temperature 97.81 [degF] [facility] [address] [place] [address] 02-06-2024 11:19-0400 Body weight 76.9 kg [facility] 02-06-2024 11:19-0400 Diastolic blood pressure 83 mm[Hg] [facility] 02-06-2024 11:19-0400 Heart rate 109 /min [facility] 02-06-2024 11:19-0400 Respiratory rate 20 /min [facility] 02-06-2024 11:19-0400 SaO2% (BldA) [Mass fraction] 95 % [facility] [address] [place] [address] 02-06-2024 11:19-0400 Systolic blood pressure 133 mm[Hg] [facility] [address] [place] [address] 02-05-2024 14:35-0400 Body height 177.8 cm Frida Ureñatrick H[employer] RES[employer] PROFESSIONAL Work Phone: [facility] 02-05-2024 14:35-0400 Body mass index (BMI) [Ratio] 24.34 kg/m2 Frida Dorman [employer] PROFESSIONAL Work Phone: [facility] 02-05-2024 14:35-0400 Body temperature 99.1 [degF] Frida Dorman [employer] PROFESSIONAL Work Phone: [facility] 02-05-2024 14:35-0400 Body weight 76.93 kg Frida Dorman [employer] PROFESSIONAL Work Phone: [facility] 02-05-2024 14:35-0400 Diastolic blood pressure 72 mm[Hg] Frida Dorman [employer] PROFESSIONAL Work Phone: [facility] 02-05-2024 14:35-0400 Heart rate 109 /min Frida Dorman [employer] PROFESSIONAL Work Phone: [facility] 02-05-2024 14:35-0400 Respiratory rate 16 /min Frida Dorman [employer] PROFESSIONAL Work Phone: [facility] 02-05-2024 14:35-0400 SaO2% (BldA) [Mass fraction] 96 % Frida Dorman [employer] PROFESSIONAL Work Phone: [facility] 02-05-2024 14:35-0400 Systolic blood pressure 118 mm[Hg] Frida Dorman [employer] PROFESSIONAL Work Phone: [facility] 01-27-2024 11:34-0400 Body height 177.8 cm Abdirashid Cavazos MD Work Phone: [facility] 01-27-2024 11:34-0400 Body mass index (BMI) [Ratio] 23.1 kg/m2 Abdirashid Cavazos MD Work Phone: [facility] 01-27-2024 11:34-0400 Body weight 73.03 kg Abdirashid Cavazos MD Work Phone: [facility] 12-26-2023 11:26-0400 Body height 177.8 cm [facility] 12-26-2023 11:26-0400 Body mass index (BMI) [Ratio] 23.5 kg/m2 [facility] 12-26-2023 11:26-0400 Body temperature 99.1 [degF] [facility] 12-26-2023 11:26-0400 Body weight 74.3 kg [facility] 12-26-2023 11:26-0400 Diastolic blood pressure 80 mm[Hg] [facility] 12-26-2023 11:26-0400 Heart rate 108 /min [facility] 12-26-2023 11:26-0400 Respiratory rate 16 /min [facility] 12-26-2023 11:26-0400 SaO2% (BldA) [Mass fraction] 96 % [facility] 12-26-2023 11:26-0400 Systolic blood pressure 124 mm[Hg] [facility] [address] [place] [address] 08-07-2023 12:38-0400 Body height 177.8 cm [facility] Maryjane PA Work Phone: [facility] 08-07-2023 12:38-0400 Body mass index (BMI) [Ratio] 23.1 kg/m2 Basel Maryjane PA Work Phone: [facility] 08-07-2023 12:38-0400 Body weight 73.03 kg [facility] PA Work Phone: [facility] Encounters Encounter Date Encounter Type Care Provider Facility Start: 08-03-2024 End: 08-03-2024 ambulatory YISSEL AREVALO Not Available Start: 08-03-2024 End: 08-03-2024 Bamboo flowsheet Yissel Arevalo [employer] PROFESSIONAL Work Phone: [facility] Start: 08-03-2024 End: 08-03-2024 Bamboo flowsheet Yissel Arevalo [employer] PROFESSIONAL Work Phone: [facility] Start: 08-03-2024 End: 08-03-2024 Patient encounter procedure Yissel Mickey [employer] PROFESSIONAL Work Phone: [facility] Comment on above: Encounter for subseq uent annual wellness visit (AWV) in Medicare patient (Primary Dx); Colostomy status (CMS/HCC); Primary hypertension (CMS/HCC); Prostate cancer screening; History of prediabetes Start: 05-03-2024 End: 05-03-2024 Bamboo flowsheet Frida Dorman [employer] PROFESSIONAL Work Phone: [facility] Start: 05-03-2024 End: 05-03-2024 Bamboo flowsheet Frida Dorman [employer] PROFESSIONAL Work Phone: [facility] Start: 05-03-2024 End: 05-03-2024 ambulatory FRIDA DORMAN Not Available Start: 05-03-2024 End: 05-03-2024 Office outpatient visit 10 minutes Frida Dorman [employer] PROFESSIONAL Work Phone: [facility] Comment on above: Upper respiratory tr act infection, unspecified type (Primary Dx); Viral URI; Acute non-recurrent frontal sinusitis Start: 04-06-2024 End: 04-06-2024 Orders Only Frida Dorman [employer] PROFESSIONAL Work Phone: [facility] Comment on above: Primary hypertension (CMS/HCC) Start: 02-12-2024 End: 02-12-2024 Evaluation and management of inpatient VAL [facility] Start: 02-12-2024 End: 02-12-2024 Evaluation and management of inpatient [facility] Start: 02-11-2024 Preoperative state Frida lockhart [employer] PROFESSIONAL Work Phone: [facility] Start: 02-06-2024 End: 02-06-2024 ambulatory [facility] Start: 02-06-2024 End: 02-06-2024 Patient encounter procedure [facility] Comment on above: Preop testing (Prima ry Dx) Start: 02-06-2024 End: 02-06-2024 Patient encounter status [facility] Start: 02-05-2024 End: 02-05-2024 ambulatory FRIDA DORMAN Not Available Start: 02-05-2024 End: 02-05-2024 Office outpatient visit 15 minutes Frida Dorman [employer] PROFESSIONAL Work Phone: [facility] Comment on above: Colostomy in place ( CMS/HCC) (Primary Dx); Chronic idiopathic constipation; Viral URI; Pre-operative clearance; Primary hypertension (CMS/HCC) Start: 02-05-2024 End: 02-05-2024 Preoperative state Frida Dorman [employer] PROFESSIONAL Work Phone: [facility] Start: 02-05-2024 End: 02-05-2024 Bamboo flowsheet Frida Dorman H[employer] RESOURCES PROFESSIONAL Work Phone: [facility] Start: 02-05-2024 End: 02-05-2024 Bamboo flowsheet Frida Bautistak [employer] PROFESSIONAL Work Phone: [facility] Start: 01-27-2024 End: 01-27-2024 Office outpatient visit 40 minutes Abdirashid Cavazos MD Work Phone: [facility] Comment on above: Colostomy status (CM S-HCC) (Primary Dx); History of peritonitis; Parastomal hernia without obstruction or gangrene; Perforated bowel (CMS-HCC) Start: 01-27-2024 End: 01-27-2024 ambulatory [facility] Start: 01-10-2024 End: 01-10-2024 Evaluation and management of inpatient ALEX Cárdenas [facility] Start: 01-09-2024 End: 01-10-2024 Evaluation and management of inpatient [facility] Start: 12-26-2023 End: 12-26-2023 ambulatory [facility] Start: 12-26-2023 Encounter for other preprocedural examination CRUZ YOUSIF [facility] Start: 12-26-2023 End: 12-26-2023 Patient encounter procedure [facility] Comment on above: Pre-op testing (Prim [place] Dx) Start: 12-26-2023 End: 12-26-2023 Patient encounter status [facility] Start: 12-09-2023 ambulatory Gi John Facilit y:[facility] Start: 11-26-2023 End: 11-26-2023 ambulatory [facility] Start: 11-25-2023 End: 11-25-2023 ambulatory SHAIKH CINDYD Not Available Start: 11-04-2023 End: 11-04-2023 Office outpatient visit 40 minutes Abdirashid Cavazos MD Work Phone: [facility] Comment on above: Colostomy status (CM S-HCC) (Primary Dx); Perforated bowel (CMS-HCC); Parastomal hernia without obstruction or gangrene; History of peritonitis Start: 11-04-2023 End: 11-04-2023 [facility] Comment on above: Parastomal hernia wi thout obstruction or gangrene (Primary Dx) Start: 10-21-2023 End: 10-21-2023 ambulatory ORTIZ FAWWAD Not Available Start: 10-16-2023 End: 10-16-2023 ambulatory EVAN LOUIS [facility] Start: 10-16-2023 End: 10-16-2023 Office outpatient visit 15 minutes Evan Louis MD Work Phone: [facility] Comment on above: Perforated bowel (CM S-HCC) (Primary Dx) Start: 10-10-2023 ambulatory Gi John Facility: [facility] Start: 09-25-2023 End: 09-25-2023 ambulatory ORTIZ FAWWAD Not Available Start: 08-19-2023 ambulatory ORTIZ FAWWAD Not Avail able Start: 08-07-2023 End: 08-07-2023 Office outpatient visit 15 minutes [facility] PA Work Phone: [facility] Comment on above: Diverticulitis (Prim [place] Dx) Start: 08-07-2023 End: 08-07-2023 ambulatory [facility] Start: 07-28-2023 Telephone encounter Suze Matthew CNA [facility] Start: 07-20-2023 ambulatory NO PCP NO PCP [facility] Start: 07-19-2023 End: 07-26-2023 Evaluation and management of inpatient CRUZ MARTINEZ [facility] Start: 03-27-2023 End: 08-03-2024 Patient encounter procedure Frida Dorman [employer] PROFESSIONAL Work Phone: [facility] Start: 09-20-2022 End: 09-20-[address] ROSA BREWER Facility:[facility] Procedures Date Procedure Procedure Detail Performing Clinician Start: 02-06-2024 Ecg routine ecg w/le ast 12 lds trcg only w/o i&r Luis Angel Jara MD Work Phone: Start: 01-09-2024 Colonoscopy Frida brooke [employer] PROFESSIONAL Work Phone: Start: 12-26-2023 Basic metabolic pane l calcium total Baljeet Dhaliwal MD Work Phone: Start: 11-23-2023 H/O: colostomy Colostomy status Abdirashid Cavazos MD Work Phone: Start: 08-19-2023 H/O: colostomy Status post Bahena rtmann procedure Frida Dorman [employer] RESOURCES PROFESSIONAL Work Phone: Start: 07-20-2023 Adult depression screening assessment Suze Matthew CNA Start: 04-12-2020 Colonoscopy Suze fournier [employer] H/O: colostomy Colostomy status ([facility]-HCC) Abdirashid Cavazos MD Work Phone: H/O: colostomy Colostomy status ([facility]-HCC) Abdirashid Cavazos MD Work Phone: H/O: colostomy Colostomy status (CMS/HCC) Yissel Mickey H[employer] RESOURCES PROFESSIONAL Work Phone: Plan of Treatment Date Care Activity Detail Author Start: 01-08-2034 Screening for malign ant neoplasm of colon [facility] Start: 01-08-2029 Screening for malign ant neoplasm of colon Colonoscopy [facility] Start: 08-03-2025 Medicare Annual Well ness (AWV) Medicare Annual Wellness (AWV) [facility] Start: 04-12-2025 Screening for malign ant neoplasm of colon Colonoscopy [facility] Start: 02-11-2025 Adult BMI Screening Adult BMI Screen ing [facility] Start: 02-11-2025 Tobacco Screening Tobacco Screening [facility] Start: 02-05-2025 Adult BMI Screening Adult BMI Screen ing [facility] Start: 02-05-2025 Tobacco Screening Tobacco Screening [facility] Start: 12-27-2024 Influenza vaccination Influenz a Vaccine (Season Ended) [facility] Start: 12-25-2024 Adult BMI Screening Adult BMI Screen ing [facility] Start: 12-25-2024 Tobacco Screening Tobacco Screening [facility] Start: 10-15-2024 Tobacco Screening Tobacco Screening [facility] Start: 08-06-2024 Adult BMI Screening Adult BMI Screen ing [facility] Start: 08-06-2024 Tobacco Screening Tobacco Screening [facility] Start: 08-03-2024 End: 08-03-2025 CBC W Auto Differential panel - Blood CBC and differential Lab Routine Primary hypertension (CMS/HCC) Expected: 08/03/2024 (Approximate), Expires: 08/03/[address] [facility] Work Phone: Comment on above: Expected: 08/03/2024 (Approximate), Expires: 08/03/2025 Start: 08-03-2024 End: 08-03-2025 Comprehensive metabolic 2000 panel - Serum or Plasma Comprehensive metabolic panel Lab Routine Primary hypertension (CMS/HCC) History of prediabetes Expected: 08/03/2024 (Approximate), Expires: 08/03/[address] [facility] Comment on above: Expected: 08/03/2024 (Approximate), Expires: 08/03/2025 Start: 08-03-2024 End: 08-03-2025 Hemoglobin A1c/Hemoglobin.total in Blood Hemoglobin A1c Lab Routine History of prediabetes Expected: 08/03/2024 (Approximate), Expires: 08/03/[address] [facility] Comment on above: Expected: 08/03/2024 (Approximate), Expires: 08/03/2025 Start: 08-03-2024 End: 08-03-2025 Microalbumin/Creatinine panel in random Urine Microalbumin / creatinine, urine ratio Lab Routine Primary hypertension (CMS/HCC) History of prediabetes Expected: 08/03/2024 (Approximate), Expires: 08/03/[address] [facility] Comment on above: Expected: 08/03/2024 (Approximate), Expires: 08/03/2025 Start: 08-03-2024 End: 08-03-2024 Patient encounter procedure 08/03/2024 2:00 PM EDT Office Visit [facility] [address] [place] [address] Frida Dorman NP [address] [facility] [place] [address] [facility] Start: 08-03-2024 End: 08-03-2025 Prostate specific Ag [Mass/volume] in Serum or Plasma PSA Lab Routine Prostate cancer screening Expected: 08/03/2024 (Approximate), Expires: 08/03/[address] [facility] Comment on above: Expected: 08/03/2024 (Approximate), Expires: 08/03/2025 Start: 08-03-2024 End: 08-03-2025 Urinalysis complete panel - Urine Urinalysis with reflex microscopic (clean catch) Lab Routine Primary hypertension (CMS/HCC) History of prediabetes Expected: 08/03/2024 (Approximate), Expires: 08/03/[address] [facility] Comment on above: Expected: 08/03/2024 (Approximate), Expires: 08/03/2025 Start: 07-25-2024 Adult BMI Screening Adult BMI Screen [facility] Start: 07-19-2024 Depression Screening Depression Scre ening [facility] Start: 07-19-2024 Tobacco Screening Tobacco Screening [facility] Start: 05-03-2024 End: 05-03-2024 Patient encounter procedure 05/03/2024 10:30 AM EST Office Visit [facility] [address] [place] [phone] Frida Dorman, GREGORIO [address] [address] [facility] Start: 03-29-2024 End: 03-29-2024 Patient encounter procedure 03/29/2024 3:00 PM EST Office Visit [facility] [address] [place] [phone] Frida Dorman, GREGORIO [address] [phone] [facility] Start: 03-27-2024 Medicare Annual Well ness (AWV) Medicare Annual Wellness (AWV) [facility] Start: 02-12-2024 End: 02-12-2024 Admission to same day surgery center 02/12/2024 7:30 AM EDT - 02/12/2024 1:00 PM EDT Surgery [facility] Surgery [facility] [place] [address] Abdirashid Cavazos MD [address] [place] [address] DAVINCI TAKEDOWN COLOVESICAL FISTULA [24922 (CPT )] [facility] - Surgery Comment on above: DAVINCI TAKEDOWN COL OVESICAL FISTULA [33146 (CPT )] Start: 02-12-2024 End: 02-12-2024 Closure enterostomy lg/small intestine CLOSURE COLOSTOMY COLOSTOMY STATUS 02/12/2024 7:30 AM EDT [facility] Start: 02-12-2024 End: 02-12-2024 Ileostomy/jejunostomy non-tube ILEOSTOMY COLOSTOMY STATUS 02/12/2024 7:30 AM EDT [facility] Start: 02-12-2024 Subsequent hospital visit by physician 02/12/2024 7:30 AM EDT Hospital Encounter [facility] Surgery [address] [facility] [place] [phone] Abdirashid Cavazos MD [address] [place] [address] [facility] Surgery Start: 02-12-2024 End: 02-12-2024 Unlisted laparoscopy px intestine xcp rectum DAVINCI TAKEDOWN COLOVESICAL FISTULA COLOSTOMY STATUS 02/12/2024 7:30 AM EDT [facility] Start: 01-27-2024 End: 01-27-2024 Patient encounter procedure 01/27/2024 11:30 AM EDT Office Visit [facility] [address] [place] [address]. [address] [place] [address] [place] [address] [place] [address], [address] [place] [address] [facility] Start: 01-09-2024 End: 01-09-2024 Admission to same day surgery center 01/09/2024 12:30 PM EDT - 01/09/2024 1:30 PM EDT Surgery [facility] Endoscopy [address] [facility] [place] [phone] Abdirashid Cavazos MD [address] [place] [address] COLONOSCOPY DIAGNOSTIC / PER ANUS AND PER COLOSTOMY [60420 (CPT )] [facility] Endoscopy Comment on above: COLONOSCOPY DIAGNOST IC / PER ANUS AND PER COLOSTOMY [10941 (CPT )] Start: 01-09-2024 End: 01-09-2024 Colonoscopy flx dx w/collj spec when pfrmd COLONOSCOPY DIAGNOSTIC / SCREENING COLOSTOMY STATUS 01/09/2024 12:30 PM EDT [facility] Start: 01-09-2024 Subsequent hospital visit by physician 01/09/2024 12:30 PM EDT Hospital Encounter [facility] Endoscopy [address] [place] [phone] Abdirashid Cavazos MD [address] [facility] [place], [place] [id number] [facility] Endoscopy Start: 12-28-2023 Influenza vaccination [facility] Start: 12-26-2023 End: 12-26-2023 Patient encounter procedure 12/26/2023 10:45 AM EDT Procedure visit [facility] [address] [place] [phone] [facility] Start: 11-26-2023 End: 11-26-2023 Patient encounter procedure 11/26/2023 2:30 PM EDT Appointment [facility] Imaging [address] [place] [address] Abdirashdi Cavazos MD [address] [facility] [address] [place] [address] [facility] - [facility] Imaging Start: 11-04-2023 End: 11-03-2024 CT Abdomen and Pelvis W contrast IV CT abdomen and pelvis with contrast Imaging Routine Parastomal hernia without obstruction or gangrene Expected: 11/04/2023, Expires: 11/03/2024 Brijesh Work Phone: Comment on above: Expected: 11/04/2023 , Expires: 11/03/2024 Start: 11-04-2023 End: 11-04-2023 Patient encounter procedure 11/04/2023 1:30 PM EDT Office Visit [facility] [address] [place] [address]. [address] [place] [address] [place] [address] [place] [address], [address] [place] [address] [facility] Start: 10-16-2023 End: 10-16-2023 Patient encounter procedure 10/16/2023 3:30 PM EDT Office Visit [facility] [address] [place] [address]. [address] [place] [address] Evan Louis MD [address] [facility] [address] [place] [address] [facility] Start: 2023 Fall Risk Screening Fall Risk Screen ing [facility] Start: 2023 Pneumococcal Vaccine : 65+ Years (1 of 1 - PCV) Pneumococcal Vaccine: 65+ Years (1 of 1 - PCV) [facility] Start: 2008 Administration of varicella zoster vaccine Zoster (Shingles) Vaccine (1 of 2) [facility] Start: 1977 DTaP,Tdap and Td Vaccines (1 - Tdap) DTaP,Tdap and Td Vaccines (1 - Tdap) [facility] Start: 1958 Medicare Annual Well ness Visit Medicare Annual Wellness Visit [facility] Start: 1960 Screening for malign ant neoplasm of colon [facility] End: 11-03-2024 Creatinine includes GFR, serum Creatinine includes GFR, serum Lab Routine Parastomal hernia without obstruction or gangrene 1 Occurrences starting 11/04/2023 until 11/03/2024 [facility] Comment on above: 1 Occurrences starti ng 11/04/2023 until 11/03/2024 Payers Date Payer Category Payer Medicaid [id number] 1998 Medicare [id number] 1959 Medicaid [id number] 1959 Medicare [id number] 1958 Unknown [id number] 2.16.84 0.1.602076.3.579.2.593 1958 Unknown [id number] 2.16.8 40.1.516845.3.579.2.128 1958 Unknown [id number] 2.16.8 40.1.550170.3.579.2.128 1958 Unknown [id number] 2.16.8 40.1.048496.3.579.2.1285 1958 Unknown [id number] 2.16.8 40.1.676307.3.579.2.1285 1958 Unknown [id number] 2.16.8 40.1.781190.3.579.2.1285 1958 Unknown [id number] 2.16.8 40.1.583346.3.579.2.128 1958 Unknown [id number] 2.16.8 40.1.006812.3.579.2.1285 1958 Unknown [id number] 2.16.8 40.1.012464.3.579.2.1285 1958 Unknown [id number] 2.16.8 40.1.102417.3.579.2.128 1958 Unknown [id number] 2.16.8 40.1.427268.3.579.2.1285 1958 Unknown [id number] 2.16.8 40.1.293332.3.579.2.1285 1958 Unknown [id number] 2.16.8 40.1.207674.3.579.2.1285 1958 Unknown [id number] 2.16.8 40.1.225418.3.579.2.1286 1958 Unknown [id number] 2.16.8 40.1.692912.3.579.2.1286 1958 Unknown [id number] 2.16.8 40.1.046890.3.579.2.1286 1958 Unknown [id number] 2.16.8 40.1.549993.3.579.2.1286 1958 Unknown [id number] 2.16.8 40.1.086650.3.579.2.1286 1958 Unknown [id number] 2.16.84 0.1.125639.3.579.2.1259 1958 Unknown [id number] 2.16.84 0.1.009146.3.579.2.1259 1958 Unknown [id number] 2.16.84 0.1.860767.3.579.2.1258 1958 Unknown [id number] 2.16.84 0.1.976898.3.579.2.1259 1958 Unknown [id number] 2.16.84 0.1.266830.3.579.2.1259 1958 Unknown [id number] 2.16.84 0.1.616640.3.579.2.1259 1958 Unknown [id number] 2.16.84 0.1.727138.3.579.2.1259 Social History Date Type Detail Facility Start: 03-31-2020 End: 08-19-2023 Tobacco smoking status [facility] [[email or web address] Never smoked tobacco [facility] Start: 03-31-2020 End: 08-19-2023 Tobacco use and exposure Smokeless tobacco non-user [facility] Start: 11-25-2023 End: 08-03-2024 Alcoholic beverage intake Lifetime non-drinker (finding) [facility] Start: 03-27-2023 End: 08-03-2024 History of Social function [facility] Start: 03-27-2023 End: 08-03-2024 Humiliation, Afraid, Rape, and Kick questionnaire [HARK] [facility] Within the last year , have you been afraid of your partner or ex-partner? No [facility] Do you belong to any clubs or organizations such as mormonism groups, unions, fraternal or athletic groups, or school groups? Yes [facility] Are you now , , , , never or living with a partner? [facility] How often to you hav e a drink containing alcohol? Never [facility] How many standard dr inks containing alcohol do you have on a typical day? Patient does not drink [facility] How hard is it for y ou to pay for the very basics like food, housing, medical care, and heating Somewhat hard [facility] Do you feel stress - tense, restless, nervous, or anxious, or unable to sleep at night because your mind is troubled all the time - these days [OSQ] Only a little [facility] (I/We) worried wheth er (my/our) food would run out before (I/we) got money to buy more. Never true [facility] Start: 03-27-2023 Alcohol Comment caffeine: none [facility] Start: 1960 Sex assigned at Not on file P [facility] Start: 10-16-2023 End: 02-22-2024 Alcoholic beverage intake Ex-drinker (finding) [facility] Start: 12-01-2014 Sex Male (finding) [facility] NEGATED: Highlighted rowStart: NINF History of tobacco use Passive smoker [facility] Goals Date Patient Goal Desired Activity /State Personal health goal Comment on above: Formatting of this n ote might be different from the original. Evaluation of progress towards goal: Clinical Notes 07-28-2023 to 08-03-2024 Yissel Arevalo NP - 08/03/2024 3:07 PM SHALINI LINK - 08/03/2024 2:00 PM Jan Arevalo NP - 08/03/2024 2:00 PM Jan Arevalo NP - 08/03/2024 7:05 AM EDTPatient Instructions Note Date & Type Note Facility 08-03-2024 History of Presen t illness Narrative Associated Problem(s): Encounter for subsequent annual wellness visit (AWV) in Medicare patient Reviewed Ht/Wt/BMI Recommend eye exam yearly Recommend dental exams twice a year Balance work/leisure activities Exercises is recommended most days of the week (appropriate as chronic conditions allow) Follow up yearly and prn Pt needs a refill on his amlodipine Images from the original note were not included. Cipriano Arzate is a 64 y.o. male presents with chief complaint of No chief complaint on file. HPI: Diet: not balanced Activity: no Mental Health Concerns: depression, sometimes-secondary to ostomy situation Falls in the last year: no Still driving: yes Do you pay your bills: yes Any hearing problems:no Any Vision problems: no , last eye exam long time ago Any Hospitalizations in the last year:ostomy Specialist: surgeon (yara) HCPOA/Living Will: none Concerns: SUBJECTIVE: MEDICATIONS: Current Outpatient Medications Medication Instructions amLODIPine (NORVASC) 10 mg, Oral, Daily fluticasone (Flonase) 50 MCG/ACT nasal spray 1-2 sprays, Each Nostril, Daily, Shake gently. Before first use, prime pump. After use, clean tip and replace cap. senna (SENOKOT) 17.2 mg, Oral, 2 times daily ALLERGIES: No Known Allergies REVIEW OF SYMPTOMS: Review of Systems Constitutional: Negative for activity change, appetite change and unexpected weight change. HENT: Negative for ear pain, nosebleeds, sneezing, trouble swallowing and voice change. Eyes: Negative for pain, discharge and visual disturbance. Respiratory: Positive for cough. Negative for apnea, chest tightness and wheezing. Cardiovascular: Negative for leg swelling. Gastrointestinal: Negative for abdominal distention, blood in stool, constipation and diarrhea. Genitourinary: Negative for decreased urine volume, difficulty urinating, dysuria and hematuria. Skin: Negative for color change. Neurological: Negative for dizziness, tremors and seizures. Psychiatric/Behavioral: Negative for agitation, decreased concentration, hallucinations, self-injury and suicidal ideas. The patient is not nervous/anxious. Depression Hematological: Negative for adenopathy. Does not bruise/bleed easily. Endocrine: Negative for cold intolerance, heat intolerance, polydipsia and polyuria. Allergic/Immunologic: Negative for environmental allergies and food allergies. PAST MEDICAL HISTORY Past Medical History: Diagnosis Date Arthritis Diverticulitis of colon without hemorrhage History of colonoscopy with polypectomy 7mm polyp removed History of nocturia HTN (hypertension) (CMS/HCC) Inguinal hernia Internal and external bleeding hemorrhoids 1 polyp on 2019 Colonoscopy Rectal bleeding Umbilical hernia without obstruction or gangrene Past Surgical History: Procedure Laterality Date HERNIA REPAIR Inguinal - Right (2007) ; Left (01/2018) family history includes Cancer in his mother; Heart disease in his father; Stroke in his father. OBJECTIVE: Visit Vitals BP 140/84 (BP Location: Left arm, Patient Position: Sitting, BP Cuff Size: Adult long) Pulse 94 Temp 98.5 F (Temporal) Wt 178 lb 6.4 oz SpO2 96% BMI 25.60 kg/m Smoking Status Never BSA 2 m Physical Exam Vitals and nursing note reviewed. Constitutional: Appearance: Normal appearance. He is not ill-appearing. HENT: Head: Normocephalic. Right Ear: Tympanic membrane, ear canal and external ear normal. Left Ear: Tympanic membrane, ear canal and external ear normal. Nose: Nose normal. No congestion or rhinorrhea. Mouth/Throat: Mouth: Mucous membranes are moist. Pharynx: Oropharynx is clear. No oropharyngeal exudate or posterior oropharyngeal erythema. Eyes: Extraocular Movements: Extraocular movements intact. Conjunctiva/sclera: Conjunctivae normal. Neck: Vascular: No carotid bruit. Cardiovascular: Rate and Rhythm: Normal rate and regular rhythm. Pulses: Normal pulses. Heart sounds: Normal heart sounds. Pulmonary: Effort: Pulmonary effort is normal. Breath sounds: Normal breath sounds. No wheezing or rhonchi. Abdominal: General: Bowel sounds are normal. There is no distension. Palpations: Abdomen is soft. Tenderness: There is no abdominal tenderness. Hernia: A hernia is present. Comments: +ostomy brown soft stool Musculoskeletal: Cervical back: Neck supple. Right lower leg: No edema. Left lower leg: No edema. Lymphadenopathy: Cervical: No cervical adenopathy. Skin: General: Skin is warm and dry. Capillary Refill: Capillary refill takes 2 to 3 seconds. Neurological: General: No focal deficit present. Mental Status: He is alert. Psychiatric: Mood and Affect: Mood normal. Behavior: Behavior normal. Thought Content: Thought content normal. Judgment: Judgment normal. ASSESSMENT AND PLAN: No follow-ups on file. Problem List Items Addressed This Visit Primary hypertension (CMS/HCC) Please check blood pressure daily and record DASH diet Limit caffeine Take medication as directed Contact office if chest pain, pressure, dizziness, shortness of breath, swelling legs Recommend slow position changes Current meds: amlodipine Relevant Orders CBC and differential Comprehensive metabolic panel Urinalysis with reflex microscopic (clean catch) Microalbumin / creatinine, urine ratio History of prediabetes Relevant Orders Comprehensive metabolic panel Urinalysis with reflex microscopic (clean catch) Microalbumin / creatinine, urine ratio Hemoglobin A1c Prostate cancer screening Relevant Orders PSA Encounter for subsequent annual wellness visit (AWV) in Medicare patient - Primary Reviewed Ht/Wt/BMI Recommend eye exam yearly Recommend dental exams twice a year Balance work/leisure activities Exercises is recommended most days of the week (appropriate as chronic conditions allow) Follow up yearly and prn Other Visit Diagnoses Colostomy status (CMS/HCC) Associated Problem(s): Primary hypertension (CMS/HCC) Please check blood pressure daily and record DASH diet Limit caffeine Take medication as directed Contact office if chest pain, pressure, dizziness, shortness of breath, swelling legs Recommend slow position changes Current meds: amlodipine documented in this encounter [facility] 08-03-2024 Instructions Yissel Arevalo NP - 08/03/2024 2:00 PM EDT Please get labs completed Eye exam: please call to schedule documented in this encounter [facility] 05-03-2024 History of Presen t illness Narrative Associated Problem(s): Acute non-recurrent frontal sinusitis Cough/Runny nose/Headache/X1+ month. Did not have ostomy reversal due to having cold like symptoms on day of surgery. Pt states surgery was concerned he would blow sutures out. Denies shortness of breath or chest pain. Will treat with Augmentin and steroids today since symptoms have been ongoing. Images from the original note were not included. Subjective Patient ID: Cipriano Arzate is a 63 y.o. male who presents for URI. HPI Cough Runny nose Headache X1+ month. Denies: Shortness of breath Earache Did not have ostomy reversal due to having cold like symptoms on day of surgery. Pt states surgery was concerned he would blow sutures out. Review of Systems Constitutional: Negative for activity change, appetite change, chills, diaphoresis, fatigue, fever and unexpected weight change. HENT: Positive for rhinorrhea, sinus pressure and sinus pain. Negative for congestion, ear pain, sneezing, sore throat, trouble swallowing and voice change. Eyes: Negative for visual disturbance. Respiratory: Positive for cough. Negative for chest tightness, shortness of breath and wheezing. Cardiovascular: Negative for chest pain, palpitations and leg swelling. Gastrointestinal: Negative for abdominal distention, abdominal pain, blood in stool, constipation, diarrhea and vomiting. Genitourinary: Negative for decreased urine volume, dysuria, flank pain, frequency, hematuria and urgency. Musculoskeletal: Negative for arthralgias, gait problem, joint swelling and myalgias. Skin: Negative for rash. Neurological: Negative for dizziness, tremors, syncope, weakness, light-headedness and headaches. Psychiatric/Behavioral: Negative for decreased concentration and suicidal ideas. The patient is not nervous/anxious. Hematological: Does not bruise/bleed easily. Endocrine: Negative for cold intolerance, heat intolerance, polydipsia, polyphagia and polyuria. Objective Physical Exam Vitals reviewed. Constitutional: Appearance: Normal appearance. HENT: Right Ear: Tympanic membrane normal. Left Ear: Tympanic membrane normal. Nose: Congestion and rhinorrhea present. Mouth/Throat: Mouth: Mucous membranes are moist. Pharynx: Oropharynx is clear. Eyes: Pupils: Pupils are equal, round, and reactive to light. Cardiovascular: Rate and Rhythm: Normal rate and regular rhythm. Pulses: Normal pulses. Heart sounds: Normal heart sounds. Pulmonary: Effort: Pulmonary effort is normal. Breath sounds: Normal breath sounds. Abdominal: General: Abdomen is flat. Bowel sounds are normal. Palpations: Abdomen is soft. Skin: Capillary Refill: Capillary refill takes less than 2 seconds. Neurological: Mental Status: He is alert and oriented to person, place, and time. Assessment/Plan Problem List Items Addressed This Visit Upper respiratory tract infection - Primary Relevant Medications amoxicillin-clavulanate (Augmentin) 875-125 MG tablet methylPREDNISolone (Medrol Dospak) 4 MG tablets fluticasone (Flonase) 50 MCG/ACT nasal spray Acute non-recurrent frontal sinusitis Cough/Runny nose/Headache/X1+ month. Did not have ostomy reversal due to having cold like symptoms on day of surgery. Pt states surgery was concerned he would blow sutures out. Denies shortness of breath or chest pain. Will treat with Augmentin and steroids today since symptoms have been ongoing. documented in this encounter [facility] 05-03-2024 Instructions Frida Dorman NP - 05/03/2024 10:30 AM EST Continue to rest, drink plenty of fluids, and eat a well-balance diet. Resume normal activity. AVOID anything strenuous until you are feeling better. Take antibiotic and steroids as directed. Vitamins: Vitamin C 1,000mg per day. Vitamin D3 2,000 international unit(s) per day.Zinc 25mg per day. WORSENING SYMPTOMS, CHEST PAIN, OR SHORTNESS OF BREATH, GO TO THE NEAREST EMERGENCY DEPARTMENT. documented in this encounter [facility] 02-11-2024 History of Presen t illness Narrative Associated Problem(s): Viral URI Does report having sinus congestion, runny nose and post nasal drip for several days. Is concerned that this may interfere with surgery. Discussed likely viral etiology. Recommended pt discuss this with provider at presurgical appointment. Recommended Flonase and OTC antihistamines. Advised against vitamins or supplements, or initiation of new medications prior to surgery without surgeon approval first. Associated Problem(s): Pre-operative clearance Is here today for presurgical clearance for Reversal of colovesical fistula. Is having presurgical labwork done tomorrow. Did not bring paperwork to OV today from surgeons office. Pt has history of HTN. Well controlled on Amlodipine. Will provide medical clearance once pre-surgical testing results are received. Associated Problem(s): Primary hypertension (CMS/HCC) Currently taking amlodipine 10mg Does not check BP at home; BP good today in office. Denies orthostatic changes, dizziness, cough, shortness of breath, swelling in extremities. Continue current regimen. Given BP log, advised pt to record BP and bring log back with them to next visit. Images from the original note were not included. Subjective Patient ID: Cipriano Arzate is a 63 y.o. male who presents for Pre-op Exam. HPI Is here today for presurgical clearance for Reversal of colovesical fistula. Is having presurgical labwork done tomorrow. Did not bring paperwork to OV today from surgeons office. HTN: Currently taking amlodipine 10mg Does not check BP at home; BP good today in office. Denies orthostatic changes, dizziness, cough, shortness of breath, swelling in extremities. Continue current regimen. Given BP log, advised pt to record BP and bring log back with them to next visit. Does report having sinus congestion, runny nose and post nasal drip for several days. Is concerned that this may interfere with surgery. Denies: Fever Cough Shortness of breath Myalgias Chest pain N/V Sore throat Recommended Flonase and OTC antihistamines. Advised against vitamins or other new medications prior to surgery without surgeon approval first. Review of Systems Constitutional: Negative for activity change, appetite change, chills, diaphoresis, fatigue, fever and unexpected weight change. HENT: Positive for postnasal drip, rhinorrhea and sinus pressure. Negative for congestion, ear pain, sinus pain, sneezing, sore throat, trouble swallowing and voice change. Eyes: Negative for visual disturbance. Respiratory: Negative for cough, chest tightness, shortness of breath and wheezing. Cardiovascular: Negative for chest pain, palpitations and leg swelling. Gastrointestinal: Negative for abdominal distention, abdominal pain, blood in stool, constipation, diarrhea and vomiting. Genitourinary: Negative for decreased urine volume, dysuria, flank pain, frequency, hematuria and urgency. Musculoskeletal: Negative for arthralgias, gait problem, joint swelling and myalgias. Skin: Negative for rash. Neurological: Negative for dizziness, tremors, syncope, weakness, light-headedness and headaches. Psychiatric/Behavioral: Negative for decreased concentration and suicidal ideas. The patient is not nervous/anxious. Hematological: Does not bruise/bleed easily. Endocrine: Negative for cold intolerance, heat intolerance, polydipsia, polyphagia and polyuria. Objective Physical Exam Vitals reviewed. Constitutional: Appearance: Normal appearance. HENT: Head: Normocephalic and atraumatic. Right Ear: Tympanic membrane normal. Left Ear: Tympanic membrane normal. Nose: Rhinorrhea present. Mouth/Throat: Mouth: Mucous membranes are moist. Pharynx: Oropharynx is clear. Eyes: Pupils: Pupils are equal, round, and reactive to light. Cardiovascular: Rate and Rhythm: Normal rate and regular rhythm. Pulses: Normal pulses. Heart sounds: Normal heart sounds. Pulmonary: Effort: Pulmonary effort is normal. Breath sounds: Normal breath sounds. Abdominal: General: Abdomen is flat. Bowel sounds are normal. Palpations: Abdomen is soft. Comments: Ostomy present Musculoskeletal: General: Normal range of motion. Cervical back: Normal range of motion. Skin: General: Skin is warm and dry. Capillary Refill: Capillary refill takes less than 2 seconds. Neurological: General: No focal deficit present. Mental Status: He is alert and oriented to person, place, and time. Psychiatric: Mood and Affect: Mood normal. Behavior: Behavior normal. Assessment/Plan Problem List Items Addressed This Visit Primary hypertension (CMS/HCC) Currently taking amlodipine 10mg Does not check BP at home; BP good today in office. Denies orthostatic changes, dizziness, cough, shortness of breath, swelling in extremities. Continue current regimen. Given BP log, advised pt to record BP and bring log back with them to next visit. Colostomy in place (CMS/HCC) - Primary Chronic idiopathic constipation Relevant Medications senna (Senokot) 8.6 MG tablet Viral URI Does report having sinus congestion, runny nose and post nasal drip for several days. Is concerned that this may interfere with surgery. Discussed likely viral etiology. Recommended pt discuss this with provider at presurgical appointment. Recommended Flonase and OTC antihistamines. Advised against vitamins or supplements, or initiation of new medications prior to surgery without surgeon approval first. Relevant Medications fluticasone (Flonase) 50 MCG/ACT nasal spray Pre-operative clearance Is here today for presurgical clearance for Reversal of colovesical fistula. Is having presurgical labwork done tomorrow. Did not bring paperwork to OV today from surgeons office. Pt has history of HTN. Well controlled on Amlodipine. Will provide medical clearance once pre-surgical testing results are received. documented in this encounter [facility] 02-06-2024 Instructions Chitra Mensah RN - 02/06/2024 10:45 AM EDT Your surgery/procedure is scheduled at [facility] on 02/12/2024 at 730 am Arrival Time 530 am [facility] Address: [address] [place] [address] Park in Parking lot located on [facility]. Report to the Entrance B. Check in at the information desk the surgery. The waiting room located on the second floor. If you have any questions prior to surgery, please call Pre-Admission Clinic at [phone] between 7:30 am and 4:30 pm Friday through Friday. If you have questions the morning of surgery, please call the Pre-op Department at [phone]. Notify your SURGEON if you develop any illness such as a cold, cough, fever, sore throat, vomiting or are hospitalized between now and your surgery. Medication Instructions (Do not stop your medications without consulting the prescribing physician). Take the following medications the morning of surgery with a sip of water: amlodipine Diabetic or Weight loss medications: HOLD N/a LAST DOSE N/a Take inhalers as prescribed the morning of surgery. Due to the risk associated with these medications. If these medications are not held per instruction below, your surgery is at an increased risk for cancellation. SGLT2 Medications- Hold 3 days prior to surgery: Jardiance, Empagliflozin, Farxiga, Dapagliflozin, Invokana, Canagliflozin GLP-1 Medications (Injection or Pill)- If taken daily hold day of surgery. If taken weekly, hold 1 week prior to surgery: Adlyxin, Byetta, Bydureon, Ozempic, Rybelsus,Trulicity, Victoza, Wegovy, Lixisenatide, Exenatide, Semaglutide, Dulaglutide, Liraglutide GIP/GLP-1(Injection or Pill)- If taken daily hold day of surgery. If taken weekly, hold 1 week prior to surgery: Haiunreinaldoro . Blood thinners: Please contact your prescribing physician regarding a stop/hold date for these medications. Medications such as Coumadin, Heparin, Aspirin, Plavix, Eliquis, Pradaxa Diabetics: If you take insulin, contact your prescribing doctor for instructions on how to manage this the night before and the morning of surgery. Non-steriodal Anti-Inflammatory Drugs (NSAIDS)- Hold 3 days prior to surgery unless otherwise directed by your surgeon. Vitamins/Herbal Products: You may continue to take your prescribed vitamins such as potassium, iron, vitamin B, vitamin C, or multivitamin unless specifically instructed by your surgeon to hold. STOP taking all herbal products/teas one week prior to your surgery. Marijuana: Stop marijuana 72 hours prior to surgery, stop CBD oil 48 hours prior to surgery. If you have been given bowel prep instructions by your surgeon, please call the surgeon's office with any questions about these instructions. What do I do the day of Surgery? Age 2 through adult - Stop all solids by midnight, You may have clear liquids up to 2 hours before surgery, unless otherwise instructed by your surgeon. Clear liquids are: water, sports drinks such as Gatorade or G2, or apple juice. You may NOT have: tube feedings, dairy products, alcoholic beverages, orange juice, or any liquids with solids or pulp in it. If applicable, shower again with CHG soap the morning of your surgery. If you received a green plastic bracelet, bring it with you the day of surgery and your nurse will put it on you. In order to help prevent infection post-operatively, you may be asked to use a CHG mouthwash when you arrive to the Pre-op area. Your nurse will provide instruction the morning of. What do I need to do to prepare for surgery? If you will be going home the same day as your surgery, arrange for an adult over [address] Riding in a bus or taxi by yourself is not permitted. You should not smoke or drink alcohol 24 hours before your surgery. Alcohol thins the blood and may cause bleeding problems during surgery. Smoking increases the risk of breathing problems after surgery. Do not use lotions, creams, powders, perfume, make up, cologne or after-shaves day of surgery. Remove ALL jewelry including wedding rings, body piercings (including dermal piercings ,hair extensions that contain metal, nail rwandan, make-up, and contact lens. You may brush your teeth the morning of surgery, but do not swallow the water. Wear your dentures and partial plates to the hospital (no adhesive). Shower the night the before. If applicable, use the CHG (chlorhexidine gluconate) soap or wipes What should I bring to the hospital? If you received a green plastic bracelet, bring it with you the day of surgery and your nurse will put it on you. Eyeglass or contact lens case If you will be spending the night, please bring personal care items and leave them in the car until you are taken to your room after surgery. Leave ALL valuables at home. If any of these instructions conflict with those you received from the surgeon, please seek clarification from your surgeon's office. DEEP BREATHING EXERCISES This exercise helps promote good air exchange and helps to prevent pneumonia after surgery. Breathe in slowly and deeply through the nose. Hold your breath for a few seconds and then exhale slowly through the mouth. Repeat this three times and then cough.Coughing helps to clear your lungs. If you have had a surgery with an incision into your abdomen or chest, press gently against your incision with a pillow or a folded blanket when you cough. Please be aware - it may not be hoover to cough following some types of surgeries involving the eyes, ears, sinuses and throat. Always follow your doctor's instructions. LEG EXERCISE These exercises help promote good circulation and help to prevent blood clots after surgery. Point your toes to the ceiling and then point them to the wall. Do this slowly about 15-20 times. You may also move your feet in circles. Do the exercise that is most comfortable for you. If you have had surgery involving your shoulder or arm, we recommend you move your fingers. PRACTICING We ask that you begin practicing these exercises before your surgery. After surgery try to do both exercises at least every 2 hours during the day and early evening. SURGICAL SITE INFECTION PREVENTION What is a Surgical Site Infection? Infection can happen to the area of the body where surgery is done. This is called a surgical site infection (SSI). A SSI does not happen very often. Can SSIs be treated? Antibiotics are used to treat SSI. Some patients may need another surgery to treat the infection. The doctor will discuss treatment options with you. What are some of the things that hospitals are doing to prevent SSIs? Soap and water or alcohol hand rub are used before and after caring for each patient. Special soap is used to clean surgery workers hands and arms just before the surgery. Masks, gowns, gloves and hair covers are worn during the surgery to keep the area clean. Hair in the surgery area may be removed with clippers (not razors). A special soap that kills germs is used to clean the skin at the surgery site. Antibiotics may be given before the surgery starts. What can you do to prevent SSIs? Before surgery: You may be asked to shower or bathe with a special soap that kills germs the night before and the day of surgery. Use the soap as you were told. If you smoke, stop or cut down. Ask your doctor about ways to quit. Do not shave near where you will have surgery. Shaving can irritate the skin and make it easier to get and infection. After surgery: Be sure that the doctors and nurses clean their hands before and after touching you. Be sure your family and friends clean their hands before and after visiting you. Do not be afraid to remind them. * Care for your wound at home as told by your doctor or nurse * Call your doctor right away if you have fever, redness, increased pain, or drainage at the surgery site. Further questions? Contact the doctor, nurse or the Infection Prevention and Control department if you have any questions. PATIENT RIGHTS AND RESPONSIBILITIES As a patient at [facility], you have the right to: Receive medical care and be informed of who is taking care of you Be treated with dignity and respect Have a family member/customer loyalty representative of choice and your physician notified of your admission Receive information and actively participate in decisions about your care and treatment Refuse care, treatment and services Decide who may provide your support and speak for you Access jainism and spiritual services Participate in ethical issues and questions about your care Receive private and confidential care Have appropriate assessment and management of your pain Know guest visitation restrictions or limitations Have an advance directive Access protective services Consent or refuse to participate in research studies or production or recordings, films or other images Have resolution of your complaints Receive information of hospital charges and payment methods Patient/patient customer loyalty representative responsibilities are to: Provide information about health status to facilitate care, treatment and services Follow the treatment, plan, keep appointments and speak up when you do not understand the plan Respect the rights of other patients and healthcare personnel Follow organizational rules and regulations that support quality care and a safe environment Fulfill financial obligations as promptly as possible Bathing Before Surgery- Patients greater than 2 months of age You can help to lower your chance of infection at the site of your surgery by showering or bathing with a special soap called chlorhexidine gluconate (CHG). Germs live on your skin. This special soap will help lower the amount of germs so they do not get into your surgery site. Special points to know: Do not use this soap if you know that you are allergic to CHG. Shower or bathe with CHG the night before and the morning of surgery. Do not shave the area of your body where the surgery will be done within 7 days of surgery. The CHG may make your skin a little dry, but do not use lotion. Steps for Bathing: Wash your hair as usual with your normal shampoo. Rinse your hair and body well after you shampoo to get rid all of the shampoo. Wash gently with the CHG from the neck down, but do not scrub the skin to hard. Be sure to wash the area of your surgery very well. If showering, turn the water off while washing and then turn the water back onto rinse. Do not get CHG in the genital (private) area. Do not get CHG in the eyes, ears, nose or mouth. (If the soap gets into the eyes, flush them immediately with water). Do not wash with regular soap after CHG is used. Pat skin dry with a soft, clean towel. Patient should sleep in freshly laundered night clothes and report for surgery in clean clothes. documented in this encounter [facility] 02-05-2024 Instructions Frida Dorman NP - 02/05/2024 2:30 PM EDT Have General Surgeon's Office send me form to sign off on surgical clearance please. I will sign off once I have reviewed your pre-surgical testing. Continue to rest, drink plenty of fluids, and eat a well-balance diet. Resume normal activity. AVOID anything strenuous until you are feeling better. Treatment: Nasal saline spray 2-3 times/day Cold and sinus medication -Mucinex for cough/congestion 600-1,200mg twice daily. Or Coricidin HBP Zahira or zyrtec allergy medication once daily. Flonase nasal spray 1-2 squirts in each nostril at night. Tylenol for fever and body aches. NO DECONGESTANTS!!!! WORSENING SYMPTOMS, CHEST PAIN, OR SHORTNESS OF BREATH, GO TO THE NEAREST EMERGENCY DEPARTMENT. documented in this encounter [facility] 01-27-2024 History of Presen t illness Narrative Assessment: 1. Colostomy status, here to discuss Colostomy reversal - Referral from Dr. Louis. 2. S/p sigmoidectomy on 07/20/[address] Louis. 3. Possible parastomal hernia 4. BMI 23 Cipriano P White is a 63 y.o.male who presents to discuss colostomy reversal s/p sigmoidectomy on 07/20/2023. Plan: Independent review of CT abdomen and pelvis with contrast on 11/26/2023 - Interval creation of a colostomy in the left lower abdomen since the previous examination dated 07/19/2023. No parastomal hernia seen and no complicating processes are identified. Otherwise normal CT abdomen and pelvis Colonoscopy was performed on 01/09/2024. Repeat in 2-3 months due to a small polyp that I was unable to see properly due to residue in the colon. Patient needs a robotic/laparoscopic versus open colostomy takedown, possible completion low anterior resection and parastomal hernia-ventral hernia repair. Risks, benefit, treatment alternatives and consequences of undergoing surgery were discussed with the patient. We discussed the risk of having postoperative bleeding or an anastomotic leak requiring an emergent reoperation and possible a temporary ostomy. Other risks and benefit that were discussed with the patient include (but are not limited to) infection, bleeding, the need to reoperation, injury to the ureter, duodenum or any other intra-abdominal structures, wound infections, ventral hernia development, evisceration requiring emergency surgery among others. We also discussed bladder dysfunction as well as inability to have an erection or sexual dysfunction. Medical complications include but not limited to pneumonia, respiratory failure, cardiac complications such as heart attack or congestive heart failure, urinary infection, renal failure, PE-DVT, stroke among others. Questions were answered. Patient would like to proceed. Average length of hospital stay, most common care required a home, length of time required until fully recovered as well as long-term dietary or physical restrictions as well as possible change in bowel habits were discussed with the patient as well. We discussed that there is an increased risk of respiratory infections cause by gandhi virus that could range from mild to severe respiratory symptoms including respiratory failure, multiorgan failure and increased risk of . Questions were answered. Patient would like to proceed. Patient lives alone at home. I personally review multiple notes during his hospital stay, I reviewed the operative note, the pathology report, a review CBC, BMP, coagulation studies,. Increased risk of any procedure due to adhesions secondary to peritonitis due to perforated diverticulitis. CHIEF COMPLAINS: 1. Colostomy status, here to discuss Colostomy reversal - Referral from Dr. Louis. 2. S/p sigmoidectomy on 07/20/[address] Louis. 3. Possible parastomal hernia 4. BMI 23 History of Present Illness: Cipriano Arzate is a 63 y.o. male who presents to discuss colostomy reversal s/p sigmoidectomy on 07/20/2023. He does not drink but oneil smoke marijuana. PROCEDURES COLONOSCOPY (01/09/2024): Post-op Note NAME: Cipriano Arzate : 1960 PROCEDURE DATE: 01/09/2024 Pre-op Diagnosis: Colostomy status Post-op Diagnosis: 1. Fecal impaction - Digital rectal exam with fecal impaction of the rectal remnant. A digital disimpaction was performed under sedation. 2. Complete colonoscopy per colostomy to cecum with intubation of the terminal ileum A total of 2 sessile polyps were removed from the transverse colon. One of the polyps was sessile, measured 8 mm were removed with cold snare. The 2nd polyp was flat measure 5 mm and were removed with cold biopsy forceps. Sent to pathology 3. Colonoscopy per anus was advanced and the whole entire rectum and at least the distal part of the sigmoid colon were still present without any gross mucosal abnormality except for mild diversion proctitis Procedure Details: 1. Colonoscopy per colostomy to the cecum with intubation of the terminal ileum 2. Rectal disimpaction under anesthesia 3. Colonoscopy per anus to sigmoid colon stump Procedure and Findings: 1. Digital rectal exam with fecal impaction of the rectal remnant. A digital disimpaction was performed under sedation. 2. Complete colonoscopy to cecum with intubation of the terminal ileum A total of 2 sessile polyps were removed from the transverse colon. One of the polyps was sessile, measured 8 mm were removed with cold snare. The 2nd polyp was flat measure 5 mm and were removed with cold biopsy forceps. Sent to pathology 3. Colonoscopy per anus was advanced and the whole entire rectum and at least the distal part of the sigmoid colon were still present without any gross mucosal abnormality except for mild diversion proctitis. Final Pathologic Diagnosis Transverse colon polyps, biopsy: Tubular adenoma and hyperplastic polyp. ------- COLECTOMY SIGMOID (07/20/2023): Procedure Date: 07/20/2023 Pre-Operative Diagnosis: Acute perforated sigmoid diverticulitis Post-Operative Diagnosis: Same Procedure: Exploratory laparotomy, sigmoidectomy, with end colostomy ( Kathy's procedure) Surgeon: Dr. Louis Final Pathologic Diagnosis Colon, sigmoid, partial resection: - Gross and microscopic evidence of perforated diverticulum with associated abscess formation - Diverticulitis and diverticulosis - Five benign lymph nodes (0/5) - Margins viable Past Medical History: Diagnosis Date Diverticulitis External hemorrhoids Hypertension Parastomal hernia Perforated bowel (CMS-HCC) 07/19/2023 Peritonitis ([facility]-H[facility]) Umbilical hernia Past Surgical History: Procedure Laterality Date COLECTOMY SIGMOID N/A 07/20/2023 Performed by Evan Louis MD at [facility] COLONOSCOPY DIAGNOSTIC / PER ANUS AND PER COLOSTOMY N/A 01/09/2024 Performed by Abdirashid Cavazos MD at [facility] HERNIA REPAIR x3 Allergies: No Known Allergies Medications: Current Outpatient Medications: acetaminophen (TYLENOL EXTRA STRENGTH) 500 mg tablet, Take 2 tablets (1,000 mg total) by mouth every 6 (six) hours Indications: fever, pain., Disp: 30 tablet, Rfl: 0 amLODIPine (NORVASC) 10 mg tablet, Take 1 tablet (10 mg total) by mouth in the morning. Indications: high blood pressure., Disp: , Rfl: senna (SENOKOT) 8.6 mg tablet, Take 2 tablets (17.2 mg total) by mouth in the morning and 2 tablets (17.2 mg total) before bedtime., Disp: , Rfl: Review of System: Ten systems were reviewed and were otherwise negative Social History Socioeconomic History Marital status: Single Spouse name: Not on file Number of children: Not on file Years of education: Not on file Highest education level: Not on file Occupational History Not on file Tobacco Use Smoking status: Never Smokeless tobacco: Never Vaping Use Vaping status: Never Used Substance and Sexual Activity Alcohol use: Not Currently Drug use: Yes Frequency: 7.0 times per week Types: Marijuana Sexual activity: Defer Other Topics Concern Not on file Social History Narrative Not on file Social Determinants of Health Financial Resource Strain: Medium Risk (03/27/2023) Received from [facility], [facility] Overall Financial Resource Strain (CARDIA) Difficulty of Paying Living Expenses: Somewhat hard Food Insecurity: No Food Insecurity (12/26/2023) Hunger Screening Food Insecurity - Worry: Never True Food Insecurity - Inability: Never True Transportation Needs: No Transportation Needs (07/20/2023) PRAPARE - Transportation Lack of Transportation (Medical): No Lack of Transportation (Non-Medical): No Physical Activity: Insufficiently Active (03/27/2023) Received from [facility] Exercise Vital Sign Days of Exercise per Week: 2 days Minutes of Exercise per Session: 20 min Stress: No Stress Concern Present (03/27/2023) Received from [facility] [place] [facility] [employer] [facility] - Occupational Stress Questionnaire Feeling of Stress : Only a little Social Connections: Moderately Integrated (03/27/2023) Received from [facility] Social Connection and Isolation Panel [NHANES] Frequency of Communication with Friends and Family: Twice a week Frequency of Social Gatherings with Friends and Family: Twice a week Attends Mormonism Services: 1 to 4 times per year Active Member of Clubs or Organizations: Yes Attends Club or Organization Meetings: 1 to 4 times per year Marital Status: Interpersonal Safety: Not At Risk (07/20/2023) Humiliation, Afraid, Rape, and Kick questionnaire Fear of Current or Ex-Partner: No Emotionally Abused: No Physically Abused: No Sexually Abused: No Housing Instability: Low Risk (07/20/2023) Housing Instability Housing Instability: No Family History: Family History Problem Relation Age of Onset Cancer Mother Heart disease Father Blood Clots Father Anesthesia problems Neg Hx ON EXAMINATION: CONST: Comfortable, alert, oriented X 3. EYES: No jaundice NEURO: GCS 15, Motor 5/5, CN grossly intact, sensory intact. Cardiorespiratory: Clear to auscultation. S1-S2 positive GI: Abdomen soft, non-tender, non-distended. Colostomy status. Possible parastomal hernia MSK: No joint swelling, no edema. SKIN: no jaundice Labs: Lab Results Component Value Date WBC 10.8 07/26/2023 HGB 14.4 07/26/2023 HCT 43.7 07/26/2023 MCV 95 07/26/2023 PLT 315 07/26/2023 Lab Results Component Value Date GLU 119 (H) 12/26/2023 CALCIUM 10.0 12/26/2023 K 3.8 12/26/2023 CO2 27 12/26/2023 CL 103 12/26/2023 BUN 16 12/26/2023 CREATININE 1.00 12/26/2023 Lab Results Component Value Date INR 1.1 07/20/2023 INR 1.0 07/20/2023 PROTIME 12.5 07/20/2023 PROTIME 12.0 07/20/2023 Imaging: CT Abdomen and pelvis with contrast (11/26/2023): Impression: * Interval creation of a colostomy in the left lower abdomen since the previous examination dated 07/19/2023. No parastomal hernia seen and no complicating processes are identified. * Otherwise normal CT abdomen and pelvis X-ray Abdomen (07/24/2023): IMPRESSION: *Probable postop ileus CT Abdomen and Pelvis (07/20/2023): Awaiting results Patient was examined in the presence of a director of strategic sourcing This note was created with the assistance of a speech recognition program. While intending to generate a timely document that accurately reflects the content of the visit, no guarantee can be provided that every grammatical or spelling mistake has been or will be identified or corrected. Thank you for your understanding. Scribe Statement: Scribed for and in the presence of ABDIRASHID CAVAZOS MD by Ivon Vera (scribe). Ivon Vera 01/27/2024 11:40 AM Provider Statement I, Abdirashid Cavazos MD, personally performed the services described in the documentation as scribed by Ivon Vera in my presence, and it is both accurate and complete. Abdirashid Cavazos MD, MS, FACS Board Certified in the Colon & Rectal Surgery Board Certified in General Surgery Minimally Invasive Laparoscopic and Robotic Surgery [address] / [address] [address] Office: [phone] [facility] Office: [phone] [email or web address] documented in this encounter [facility] 12-26-2023 Instructions Mayelin Foster RN - 12/26/2023 10:45 AM EDT Your surgery/procedure is scheduled at [facility] on 01/08 at 12:30 Arrival Time 10:30 [facility] Address: [address] [place] [address] in [address]ing lot located on [facility]. Report to the Entrance B. Check in at the information desk the surgery. The waiting room located on the second floor. If you have any questions prior to surgery, please call Pre-Admission Clinic at [phone] between 7:30 am and 4:30 pm Friday through Friday. If you have questions the morning of surgery, please call the Pre-op Department at [phone]. Notify your SURGEON if you develop any illness such as a cold, cough, fever, sore throat, vomiting or are hospitalized between now and your surgery. Medication Instructions (Do not stop your medications without consulting the prescribing physician). Take the following medications the morning of surgery with a sip of water: amlodipine Diabetic or Weight loss medications: HOLD n/a LAST DOSE n/a Take inhalers as prescribed the morning of surgery. Due to the risk associated with these medications. If these medications are not held per instruction below, your surgery is at an increased risk for cancellation. SGLT2 Medications- Hold 3 days prior to surgery: Jardiance, Empagliflozin, Farxiga, Dapagliflozin, Invokana, Canagliflozin GLP-1 Medications (Injection or Pill)- If taken daily hold day of surgery. If taken weekly, hold 1 week prior to surgery: Adlyxin, Byetta, Bydureon, Ozempic, Rybelsus,Trulicity, Victoza, Wegovy, Lixisenatide, Exenatide, Semaglutide, Dulaglutide, Liraglutide GIP/GLP-1(Injection or Pill)- If taken daily hold day of surgery. If taken weekly, hold 1 week prior to surgery: Haiunreinaldoro . Blood thinners: Please contact your prescribing physician regarding a stop/hold date for these medications. Medications such as Coumadin, Heparin, Aspirin, Plavix, Eliquis, Pradaxa Diabetics: If you take insulin, contact your prescribing doctor for instructions on how to manage this the night before and the morning of surgery. Non-steriodal Anti-Inflammatory Drugs (NSAIDS) ibuprofen- Hold 3 days prior to surgery unless otherwise directed by your surgeon. Vitamins/Herbal Products: You may continue to take your prescribed vitamins such as potassium, iron, vitamin B, vitamin C, or multivitamin unless specifically instructed by your surgeon to hold. STOP taking all herbal products/teas one week prior to your surgery. Marijuana: Stop marijuana 72 hours prior to surgery, stop CBD oil 48 hours prior to surgery. If you have been given bowel prep instructions by your surgeon, please call the surgeon's office with any questions about these instructions. What do I do the day of Surgery? FOLLOW DIET AND BOWEL PREP PER DR YARA perry with an antibacterial soap the morning of your surgery. In order to help prevent infection post-operatively, you may be asked to use a CHG mouthwash when you arrive to the Pre-op area. Your nurse will provide instruction the morning of. What do I need to do to prepare for surgery? If you will be going home the same day as your surgery, arrange for an adult over [address] Riding in a bus or taxi by yourself is not permitted. You should not smoke or drink alcohol 24 hours before your surgery. Alcohol thins the blood and may cause bleeding problems during surgery. Smoking increases the risk of breathing problems after surgery. Do not use lotions, creams, powders, perfume, make up, cologne or after-shaves day of surgery. Remove ALL jewelry including wedding rings, body piercings (including dermal piercings ,hair extensions that contain metal, nail rwandan, make-up, and contact lens. You may brush your teeth the morning of surgery, but do not swallow the water. Wear your dentures and partial plates to the hospital (no adhesive). Shower the night the before. What should I bring to the hospital? Eyeglass or contact lens case If you will be spending the night, please bring personal care items and leave them in the car until you are taken to your room after surgery. Leave ALL valuables at home. If any of these instructions conflict with those you received from the surgeon, please seek clarification from your surgeon's office. DEEP BREATHING EXERCISES This exercise helps promote good air exchange and helps to prevent pneumonia after surgery. Breathe in slowly and deeply through the nose. Hold your breath for a few seconds and then exhale slowly through the mouth. Repeat this three times and then cough.Coughing helps to clear your lungs. If you have had a surgery with an incision into your abdomen or chest, press gently against your incision with a pillow or a folded blanket when you cough. Please be aware - it may not be hoover to cough following some types of surgeries involving the eyes, ears, sinuses and throat. Always follow your doctor's instructions. LEG EXERCISE These exercises help promote good circulation and help to prevent blood clots after surgery. Point your toes to the ceiling and then point them to the wall. Do this slowly about 15-20 times. You may also move your feet in circles. Do the exercise that is most comfortable for you. If you have had surgery involving your shoulder or arm, we recommend you move your fingers. PRACTICING We ask that you begin practicing these exercises before your surgery. After surgery try to do both exercises at least every 2 hours during the day and early evening. SURGICAL SITE INFECTION PREVENTION What is a Surgical Site Infection? Infection can happen to the area of the body where surgery is done. This is called a surgical site infection (SSI). A SSI does not happen very often. Can SSIs be treated? Antibiotics are used to treat SSI. Some patients may need another surgery to treat the infection. The doctor will discuss treatment options with you. What are some of the things that hospitals are doing to prevent SSIs? Soap and water or alcohol hand rub are used before and after caring for each patient. Special soap is used to clean surgery workers hands and arms just before the surgery. Masks, gowns, gloves and hair covers are worn during the surgery to keep the area clean. Hair in the surgery area may be removed with clippers (not razors). A special soap that kills germs is used to clean the skin at the surgery site. Antibiotics may be given before the surgery starts. What can you do to prevent SSIs? Before surgery: You may be asked to shower or bathe with a special soap that kills germs the night before and the day of surgery. Use the soap as you were told. If you smoke, stop or cut down. Ask your doctor about ways to quit. Do not shave near where you will have surgery. Shaving can irritate the skin and make it easier to get and infection. After surgery: Be sure that the doctors and nurses clean their hands before and after touching you. Be sure your family and friends clean their hands before and after visiting you. Do not be afraid to remind them. * Care for your wound at home as told by your doctor or nurse * Call your doctor right away if you have fever, redness, increased pain, or drainage at the surgery site. Further questions? Contact the doctor, nurse or the Infection Prevention and Control department if you have any questions. PATIENT RIGHTS AND RESPONSIBILITIES As a patient at [facility], you have the right to: Receive medical care and be informed of who is taking care of you Be treated with dignity and respect Have a family member/customer loyalty representative of choice and your physician notified of your admission Receive information and actively participate in decisions about your care and treatment Refuse care, treatment and services Decide who may provide your support and speak for you Access jainism and spiritual services Participate in ethical issues and questions about your care Receive private and confidential care Have appropriate assessment and management of your pain Know guest visitation restrictions or limitations Have an advance directive Access protective services Consent or refuse to participate in research studies or production or recordings, films or other images Have resolution of your complaints Receive information of hospital charges and payment methods Patient/patient customer loyalty representative responsibilities are to: Provide information about health status to facilitate care, treatment and services Follow the treatment, plan, keep appointments and speak up when you do not understand the plan Respect the rights of other patients and healthcare personnel Follow organizational rules and regulations that support quality care and a safe environment Fulfill financial obligations as promptly as possible documented in this encounter [facility] 11-04-2023 History of Presen t illness Narrative Assessment: 1. Colostomy status, here to discuss Colostomy reversal - Referral from Dr. Louis. 2. S/p sigmoidectomy on 07/20/[address] Louis. 3. Possible parastomal hernia Cipriano Arzate is a 63 y.o.male who presents to discuss colostomy reversal s/p sigmoidectomy on 07/20/2023. Plan: Independent review CT Abdomen and Pelvis with contrast performed on 07/20/2023. Shows perforated diverticulitis Repeat CT of the abdomen and pelvis to evaluate the length of the rectal stump and to rule out any intra-abdominal fluid collections. Abnormal look of the colostomy site concerning for parastomal hernia. We will evaluate that during the CT scan Colonoscopy will be performed. Colonoscopy per colostomy and per anus: Risks and benefits were discussed with the patient. These include but are not limited to infection, bleeding, perforation, injury to intra-abdominal structures such as the spleen or the liver, the need for emergency surgery, cardiac, respiratory or neurologic complications from sedation or anesthesia, the need to repeat the procedure, the need for further studies among others. We also discussed the risk of missing-not able to be seen polyps/lesions, which is around 5% in the literature. Questions were answered. Patient would like to proceed. He also asked about having issues with his hemorrhoids. Advised against hemorrhoidectomy until after potential colostomy reversal. I personally review multiple note during his hospital stay, I reviewed the operative note, the pathology report, a review CBC, BMP, coagulation studies,. No prior colonoscopy. Increased risk of any procedure due to adhesions secondary to peritonitis due to perforated diverticulitis. We will start with a colonoscopy per anus and per rectum, possible disimpaction if there is retained stool in the rectum. We will evaluate the CT scan to determine if there is a parastomal hernia that need to be treated during the colostomy takedown. He may also need a completion LAR depending how much sigmoid colon still present in the scan. CHIEF COMPLAINS: 1. Here to discuss Colostomy reversal - Referral from Dr. Louis. 2. S/p sigmoidectomy on 07/20/[address] Louis. History of Present Illness: Cipriano Arzate is a 63 y.o. male who presents to discuss colostomy reversal s/p sigmoidectomy on 07/20/2023. Reports that he has been rinsing the stoma site. Was previously going to [employer] in [place]. He had a perforated diverticulitis for which he underwent a sigmoid resection with end colostomy. Possible parastomal hernia PROCEDURES COLECTOMY SIGMOID (07/20/2023): Procedure Date: 07/20/2023 Pre-Operative Diagnosis: Acute perforated sigmoid diverticulitis Post-Operative Diagnosis: Same Procedure: Exploratory laparotomy, sigmoidectomy, with end colostomy ( Kathy's procedure) Surgeon: Dr. Louis Final Pathologic Diagnosis Colon, sigmoid, partial resection: - Gross and microscopic evidence of perforated diverticulum with associated abscess formation - Diverticulitis and diverticulosis - Five benign lymph nodes (0/5) - Margins viable Past Medical History: Diagnosis Date External hemorrhoids Hypertension Perforated bowel ([facility]) 07/19/2023 Umbilical hernia Past Surgical History: Procedure Laterality Date COLECTOMY SIGMOID N/A 07/20/2023 Performed by Evan Louis MD at [facility] HERNIA REPAIR Xs 2 Allergies: No Known Allergies Medications: Current Outpatient Medications: acetaminophen (TYLENOL EXTRA STRENGTH) 500 mg tablet, Take 2 tablets (1,000 mg total) by mouth every 6 (six) hours Indications: fever, pain., Disp: 30 tablet, Rfl: 0 amLODIPine (NORVASC) 10 mg tablet, Take 1 tablet (10 mg total) by mouth in the morning., Disp: , Rfl: oxyCODONE (ROXICODONE) 5 mg immediate release tablet, Take 1 tablet (5 mg total) by mouth every 6 (six) hours as needed for pain for up to 12 doses. Max Daily Amount: 20 mg, Disp: 12 tablet, Rfl: 0 Review of System: Ten systems were reviewed and were otherwise negative Social History Socioeconomic History Marital status: Single Spouse name: Not on file Number of children: Not on file Years of education: Not on file Highest education level: Not on file Occupational History Not on file Tobacco Use Smoking status: Never Smokeless tobacco: Never Substance and Sexual Activity Alcohol use: Not Currently Drug use: Yes Types: Marijuana Sexual activity: Not on file Other Topics Concern Not on file Social History Narrative Not on file Social Determinants of Health Financial Resource Strain: Medium Risk (03/27/2023) Received from [facility] Overall Financial Resource Strain (CARDIA) Difficulty of Paying Living Expenses: Somewhat hard Food Insecurity: No Food Insecurity (07/20/2023) Hunger Screening Food Insecurity - Worry: Never True Food Insecurity - Inability: Never True Transportation Needs: No Transportation Needs (07/20/2023) PRAPARE - Transportation Lack of Transportation (Medical): No Lack of Transportation (Non-Medical): No Physical Activity: Insufficiently Active (03/27/2023) Received from [facility] Exercise Vital Sign Days of Exercise per Week: 2 days Minutes of Exercise per Session: 20 min Stress: No Stress Concern Present (03/27/2023) Received from [facility] of Occupational Health - Occupational Stress Questionnaire Feeling of Stress : Only a little Social Connections: Moderately Integrated (03/27/2023) Received from [facility] Social Connection and Isolation Panel [NHANES] Frequency of Communication with Friends and Family: Twice a week Frequency of Social Gatherings with Friends and Family: Twice a week Attends Mormonism Services: 1 to 4 times per year Active Member of Clubs or Organizations: Yes Attends Club or Organization Meetings: 1 to 4 times per year Marital Status: Interpersonal Safety: Not At Risk (07/20/2023) Humiliation, Afraid, Rape, and Kick questionnaire Fear of Current or Ex-Partner: No Emotionally Abused: No Physically Abused: No Sexually Abused: No Housing Instability: Low Risk (07/20/2023) Housing Instability Housing Instability: No Family History: Family History Problem Relation Age of Onset Cancer Mother Heart disease Father Blood Clots Father ON EXAMINATION: CONST: Comfortable, alert, oriented X 3. EYES: No jaundice NEURO: GCS 15, Motor 5/5, CN grossly intact, sensory intact. Cardiorespiratory: Clear to auscultation. S1-S2 positive GI: Abdomen soft, non-tender, non-distended. Colostomy status. Possible parastomal hernia MSK: No joint swelling, no edema. SKIN: no jaundice Labs: Lab Results Component Value Date WBC 10.8 07/26/2023 HGB 14.4 07/26/2023 HCT 43.7 07/26/2023 MCV 95 07/26/2023 PLT 315 07/26/2023 Lab Results Component Value Date GLU 94 07/26/2023 CALCIUM 8.5 07/26/2023 K 3.9 07/26/2023 CO2 26 07/26/2023 CL 101 07/26/2023 BUN 16 07/26/2023 CREATININE 0.78 07/26/2023 No results found for: ALT , AST , GGT , ALKPHOS , LABBILI Lab Results Component Value Date INR 1.1 07/20/2023 INR 1.0 07/20/2023 PROTIME 12.5 07/20/2023 PROTIME 12.0 07/20/2023 No results found for: CEA Imaging: X-ray Abdomen (07/24/2023): IMPRESSION: *Probable postop ileus CT Abdomen and Pelvis (07/20/2023): Awaiting results Patient was examined in the presence of a director of strategic sourcing This note was created with the assistance of a speech recognition program. While intending to generate a timely document that accurately reflects the content of the visit, no guarantee can be provided that every grammatical or spelling mistake has been or will be identified or corrected. Thank you for your understanding. Scribe Statement: Scribed for and in the presence of ABDIRASHID CAVAZOS MD by Ivon Vera (mari). Ivon Vera 11/04/2023 10:52 AM Provider Statement I, Abdirashid Cavazos MD, personally performed the services described in the documentation as scribed by Ivon Vera in my presence, and it is both accurate and complete. Abdirashid Cavazos MD, MS, FACS Board Certified in the Colon & Rectal Surgery Board Certified in General Surgery Minimally Invasive Laparoscopic and Robotic Surgery [address] / [address] [facility] [address] Office: [phone] [facility] Office: [phone] [email or web address] documented in this encounter [facility] 10-16-2023 History of Presen t illness Narrative Images from the original note were not included. SUBJECTIVE: Chief complaint: Post operative follow up, evaluation for stoma takedown Cipriano Arzate is a 63 year old male status post exploratory laparotomy, sigmoidectomy with end colostomy (Kathy procedure) done on 07/20/2023 for acute perforated sigmoid diverticulitis. Post operative period has been uncomplicated. He reports colostomy has remained functional. Denies abd pain, nausea, vomiting. Has tolerated a regular diet. Is eager to have stoma taken down. OBJECTIVE: Patient Active Problem List Diagnosis Perforated bowel (CMS-HCC) No Known Allergies There were no vitals taken for this visit. No results found for this or any previous visit (from the past 24 hour(s)). No results found. Physical Exam: General: Alert and Oriented, No acute distress. Cardio: Regular rate and rhythm Pulmonary: Non labored breathing. No expiratory wheeze. No accessory muscle use. Abdomen: Beefy stoma, soft brown stool output. Abd soft and non-tender, non-distended, midline incision healed ASSESSMENT: Cipriano Arzate is a 63 y.o.male status post exploratory laparotomy, sigmoidectomy with end colostomy,(Kathy procedure) done for acute perforated sigmoid diverticulitis. PLAN: Reviewed operative note, due to extent of diseased colon there is possible need for lower anterior resection in order to safely anastomose colon. A referral has been placed to Dr. Cavazos, colorectal surgery for evaluation of stoma takedown. Beatris Martinez, MS4 Images from the original note were not included. Subjective : Cipriano Arzate is Here for discussion of ostomy reversal. He says he really would like it reversed. He has had problems with stooling when he has the bag off. Objective: There were no vitals filed for this visit. Physical Exam General Appearance: Awake, Alert & Oriented x3, No Acute Distress Chest: Non labored breathing. Abdomen: Thin saw to midline incision well healed no hernia. Ostomy healthy Incision: healed Extremity: No edema Pathology: Assessment: Cipriano Arzate is a 63 y.o. male s/p Kathy's procedure for perforated diverticulitis Plan: Patient had thickened colon distally during the time of the operation. May need a very low anterior resection. I will for 2 my partner who is better trained in this area for ostomy reversal. If he needs help with any hernia repair at that time I am happy to come in to assist. Evan Louis MD [facility] Surgery Minimally Invasive Robotic Surgery [phone] Please feel free to call with questions at anytime. documented in this encounter [facility] 08-07-2023 History of Presen t illness Narrative Subjective: Cipriano Arzate is a 63 y.o. male presented to the office for postop follow-up. Patient status post exploratory laparotomy, sigmoidectomy with end colostomy (Kathy procedure) done on 07/20/2023 for acute perforated sigmoid diverticulitiss. By . Patient was discharged to home 07/26/2023 after uncomplicated postop course. Patient presented today stating that he is doing fairly well. Denies abdominal pain. He is able to take p.o. well without nausea or emesis. Denies fever no chills. Stoma productive. With brown liquid stool. No bleeding reported. Incision healing well. No discharge or bleeding reported from the site. No indication for infection Objective: Final Pathologic Diagnosis Colon, sigmoid, partial resection: - Gross and microscopic evidence of perforated diverticulum with associated abscess formation - Diverticulitis and diverticulosis - Five benign lymph nodes (0/5) - Margins viable Physical Exam Alert and oriented no acute distress Abdomen soft without distention. No tenderness noted with palpation. Brooke in place. Intact. Stoma pink. With brown liquid stool noted inside the bag. Lower extremities no calf tenderness All brooke were removed. Steri-Strips applied. Patient tolerated well. No complication. Assessment: Cipriano Arzate is a 63 y.o.male status post exploratory laparotomy, sigmoidectomy with end colostomy,(Kathy procedure) done for acute perforated sigmoid diverticulitis. Patient doing fairly well. No complication Plan: 1) patient was encouraged to increase level of activity is as tolerated 2) pathology report was discussed with patient in details. All questions and concerns were addressed with patient during the visit. 3) patient was encouraged to call office for any further questions or concerns 4) we will schedule appointment for patient to see for discussion of possible stoma takedown Kaleigh Jose PA-C [facility] General Surgery [address] [place] [address] MARCO A Yu 08/07/23 1302 documented in this encounter [facility] 07-28-2023 Miscellaneous Notes HOME NURSE ADALI CALLED IN TO NOTIFY US THAT SHE IS SEEING PATIENT FOR THE FIRST TIME TODAY. HE WAS ASKING ABOUT A POSSIBLE REFILL ON PAIN MEDICATION AND PATIENT IS COMPLAINING OF NUMBNESS IN HIS HANDS, MOSTLY AT NIGHT. WILL SEND MESSAGE TO DR. HOFF SINCE DR. LOUIS IS OUT. CALL HOME NURSE RENE BACK [phone] PER KAVYA: Can he take just Tylenol and Motrin, Needs to see pcp for hand SPOKE TO GUERO LÓPEZ, VERBALIZED UNDERSTANDING, SHE ALSO IS GOING TO SIZE PATIENT AND ORDER HIS OSTOMY SUPPLIES documented in this encounter [facility] 07-28-2023 Telephone encounter Note HOME NURSE ADALI CALLED IN TO NOTIFY US THAT SHE IS SEEING PATIENT FOR THE FIRST TIME TODAY. HE WAS ASKING ABOUT A POSSIBLE REFILL ON PAIN MEDICATION AND PATIENT IS COMPLAINING OF NUMBNESS IN HIS HANDS, MOSTLY AT NIGHT. WILL SEND MESSAGE TO DR. HOFF SINCE DR. LOUIS IS OUT. CALL HOME NURSE RENE BACK [phone] PER KAVYA: Can he take just Tylenol and Motrin, Needs to see pcp for hand SPOKE TO GUERO LÓPEZ, VERBALIZED UNDERSTANDING, SHE ALSO IS GOING TO SIZE PATIENT AND ORDER HIS OSTOMY SUPPLIES [facility] 07-28-2023 Miscellaneous Notes Patient called and left us a voicemail and he was very frustrated because he was under the impression someone was going to be out to his house right after he was discahrged, he also stated he was not educated in the hospital about his bags. Patient said he called all the numbers he was given and got no call back. He did end up calling [id number], he said they are coming today. I called [email or web address] and they did confirm they will be out there today 4/ in the afternoon to assist the patient. [facility] Telephone encounter Note Patient called and left us a voicemail and he was very frustrated because he was under the impression someone was going to be out to his house right after he was discahrged, he also stated he was not educated in the hospital about his bags. Patient said he called all the numbers he was given and got no call back. He did end up calling [id number], he said they are coming today. I called [email or web address] and they did confirm they will be out there today 07/27 in the afternoon to assist the patient. [facility] Evaluation note Diagnosis Primary hypertension (CMS/HCC)- Primary Unspecified essential hypertension Encounter for Medicare annual wellness exam Pain, dental History of prediabetes Primary hypertension (CMS/HCC)- Primary Unspecified essential hypertension Perforation of sigmoid colon due to diverticulitis Status post Kathy procedure (CMS/HCC) Colostomy in place (CMS/HCC) Colostomy status Hospital discharge follow-up Other follow-up examination Primary hypertension (CMS/HCC)- Primary Unspecified essential hypertension Colostomy in place (CMS/HCC) Colostomy status Numbness and tingling in left hand Disturbance of skin sensation Cystitis- Primary Unspecified cystitis Chronic idiopathic constipation Unspecified constipation Primary hypertension (CMS/HCC)- Primary Unspecified essential hypertension Colostomy in place (CMS/HCC) Colostomy status Colostomy in place (CMS/HCC)- Primary Colostomy status Chronic idiopathic constipation Unspecified constipation Viral URI Acute upper respiratory infections of unspecified site Pre-operative clearance Unspecified pre-operative examination Primary hypertension (CMS/HCC) Unspecified essential hypertension [facility] Diagnosis Primary hypertension (CMS/HCC)- Primary Unspecified essential hypertension Encounter for Medicare annual wellness exam Pain, dental History of prediabetes Primary hypertension (CMS/HCC)- Primary Unspecified essential hypertension Perforation of sigmoid colon due to diverticulitis Status post Kathy procedure (CMS/HCC) Colostomy in place (CMS/HCC) Colostomy status Hospital discharge follow-up Other follow-up examination Primary hypertension (CMS/HCC)- Primary Unspecified essential hypertension Colostomy in place (CMS/HCC) Colostomy status Numbness and tingling in left hand Disturbance of skin sensation Cystitis- Primary Unspecified cystitis Chronic idiopathic constipation Unspecified constipation Primary hypertension (CMS/HCC)- Primary Unspecified essential hypertension Colostomy in place (CMS/HCC) Colostomy status Colostomy in place (CMS/HCC)- Primary Colostomy status Chronic idiopathic constipation Unspecified constipation Viral URI Acute upper respiratory infections of unspecified site Pre-operative clearance Unspecified pre-operative examination Primary hypertension (CMS/HCC) Unspecified essential hypertension Primary hypertension (CMS/HCC) Unspecified essential hypertension documented in this encounter [facility]* Diagnosis Primary hypertension (CMS/HCC)- Primary Unspecified essential hypertension Encounter for Medicare annual wellness exam Pain, dental History of prediabetes Primary hypertension (CMS/HCC)- Primary Unspecified essential hypertension Perforation of sigmoid colon due to diverticulitis Status post Kathy procedure (CMS/HCC) Colostomy in place (CMS/HCC) Colostomy status Hospital discharge follow-up Other follow-up examination Primary hypertension (CMS/HCC)- Primary Unspecified essential hypertension Colostomy in place (CMS/HCC) Colostomy status Numbness and tingling in left hand Disturbance of skin sensation Cystitis- Primary Unspecified cystitis Chronic idiopathic constipation Unspecified constipation Primary hypertension (CMS/HCC)- Primary Unspecified essential hypertension Colostomy in place (CMS/HCC) Colostomy status Colostomy in place (CMS/HCC)- Primary Colostomy status Chronic idiopathic constipation Unspecified constipation Viral URI Acute upper respiratory infections of unspecified site Pre-operative clearance Unspecified pre-operative examination Primary hypertension (CMS/HCC) Unspecified essential hypertension Upper respiratory tract infection, unspecified type- Primary Viral URI Acute upper respiratory infections of unspecified site Acute non-recurrent frontal sinusitis documented in this encounter [facility] HealthcareEvaluation note* Diagnosis Perforated bowel ([facility]-HCC)- Primary [facility] Diagnosis Parastomal hernia without obstruction or gangrene- Primary [facility]* Diagnosis Colostomy status (CMS-HCC)- Primary Colostomy status Perforated bowel (CMS-HCC) Parastomal hernia without obstruction or gangrene History of peritonitis documented [facility]* Diagnosis Diverticulitis- Primary Diverticulitis of colon (without mention of hemorrhage) documented [facility]* Diagnosis Pre-op testing- Primary Unspecified pre-operative examination documented [facility]* Diagnosis Preop testing- Primary Unspecified pre-operative examination documented [facility]* Diagnosis Colostomy status (CMS-HCC)- Primary Colostomy status History of peritonitis Parastomal hernia without obstruction or gangrene Perforated bowel (CMS-HCC) documented [facility]* Diagnosis Primary hypertension (CMS/HCC)- Primary Unspecified essential hypertension Encounter for Medicare annual wellness exam Pain, dental History of prediabetes Primary hypertension (CMS/HCC)- Primary Unspecified essential hypertension Perforation of sigmoid colon due to diverticulitis Status post Kathy procedure (CMS/HCC) Colostomy in place (CMS/HCC) Colostomy status Hospital discharge follow-up Other follow-up examination Primary hypertension (CMS/HCC)- Primary Unspecified essential hypertension Colostomy in place (CMS/HCC) Colostomy status Numbness and tingling in left hand Disturbance of skin sensation Cystitis- Primary Unspecified cystitis Chronic idiopathic constipation Unspecified constipation Primary hypertension (CMS/HCC)- Primary Unspecified essential hypertension Colostomy in place (CMS/HCC) Colostomy status Colostomy in place (CMS/HCC)- Primary Colostomy status Chronic idiopathic constipation Unspecified constipation Viral URI Acute upper respiratory infections of unspecified site Pre-operative clearance Unspecified pre-operative examination Primary hypertension (CMS/HCC) Unspecified essential hypertension Encounter for subsequent annual wellness visit (AWV) in Medicare patient- Primary Colostomy status (CMS/HCC) Colostomy status Primary hypertension (CMS/HCC) Unspecified essential hypertension Prostate cancer screening Special screening for malignant neoplasm of prostate History of prediabetes documented in this encounter [facility] HealthcareInstructionsNot on filedocumented in [facility] System[facility]ructionsNot on filedocumented in this [facility] SystemInstructionsNot on filedocumented in [facility] SystemInstructionsNot on filedocumented in [facility] InstructionsNot on filedocumented in [facility] Summary Purpose Family History No Family History Records FoundNo Family History Records FoundNo Family History Records FoundNo Family History Records FoundNo Family History Records Found Advance Directives No Advanced Directives Records Found Date Activated Date Inactivated Comments 07/20/2023 12:44 AM 07/27/2023 12:29 AM Date Activated Date Inactivated Comments 07/20/2023 12:44 AM 07/27/2023 12:29 AM Latest Code Status on File Code Status Date Activated Date Inactivated Comments Full Code 07/20/2023 12:44 AM 07/27/2023 12:29 AM Reason for Referral Specialty Diagnoses / Procedures Referred By Contcuco t Referred To Contact Radiology Diagnoses Parastomal hernia without obstruction or gangrene Procedures CT abdomen and pelvis with contrast Abdirashid Cavazos MD [address] [place] [address] Referral ID Status Reason Start Date Expiration Date V isits Requested Visits Authorized [id number] Pending Review 11/04/2023 11/03/2024 1 1 Specialty Diagnoses / Procedures Referred By Contac t Referred To Contact Diagnoses Preop testing Procedures ECG 12 lead Luis Angel Jara MD [address] [place] [address] Referral ID Status Reason Start Date Expiration Date V isits Requested Visits Authorized [id number] Pending Review 02/06/2024 02/05/2025 1 1 Additional Source Comments (unrecognized sect ion and content) No Status Records FoundNo Status Records FoundNo Status Records FoundNo Status Records FoundNo Status Records Found INFORMATION SOURCE (unrecogn ized section and content) DATE CREATED AUTHOR 10/04/2022 [facility] DATE CREATED AUTHOR AUTHOR'S ORGANIZ ATION 07/20/2023 [facility] DATE CREATED AUTHOR AUTHOR'S ORGANIZ ATION 10/11/2023 [facility] DATE CREATED AUTHOR AUTHOR'S ORGANIZ ATION 02/14/2024 [facility] DATE CREATED AUTHOR AUTHOR'S ORGANIZ ATION 08/05/2024 [facility] EPIC Care Teams (unrecognized sec tion and content) Medical Staff Director Relationship Specialty Start Date End Date Varghese Del Cid MD [address] [place] [phone] PCP - General Family Medicine 01/21/24 Frida Dorman NP [address] [place] [phone] Nurse Practitioner Family Medicine 01/21/24 Medical Staff Director Relationship Specialty Start Date End Date Varghese Del Cid MD [address] [place] [phone] PCP - General Family Medicine 01/21/24 Frida Dorman NP [address] [place] [phone] Nurse Practitioner Family Medicine 01/21/24 Medical Staff Director Relationship Specialty Start Date End Date Varghese Del Cid MD [address] [place] [phone] PCP - General Family Medicine 01/21/24 Frida Dorman NP [address] [place] [phone] Nurse Practitioner Family Medicine 01/21/24 Medical Staff Director Relationship Specialty Start Date End Date Varghese Del Cid MD [address] [place] [phone] PCP - General Family Medicine 01/21/24 Frida Dorman NP [address] [place] [address] Nurse Practitioner Family Medicine 01/21/24 Medical Staff Director Relationship Specialty Start Date End Date Varghese Del Cid MD [address] [place] [address] PCP - General Family Medicine 01/21/24 Frida Dorman NP [address] [place] [address] Nurse Practitioner Family Medicine 01/21/24 Medical Staff Director Relationship Specialty Start Date End Date Varghese Del Cid MD [address] [place] [address] PCP - General Family Medicine 07/21/23 Medical Staff Director Relationship Specialty Start Date End Date Varghese Del Cid MD [address] [place] [address] PCP - General Family Medicine 07/21/23 Medical Staff Director Relationship Specialty Start Date End Date Varghese Del Cid MD [address] [place] [address] PCP - General Family Medicine 07/21/23 Medical Staff Director Relationship Specialty Start Date End Date Varghese Del Cid MD [address] [facility] [place] [address] PCP - General Family Medicine 07/21/23 Medical Staff Director Relationship Specialty Start Date End Date Varghese Del Cid MD [address] [place] [address] PCP - General Family Medicine 07/21/23 Medical Staff Director Relationship Specialty Start Date End Date Varghese Del Cid MD PCP - General Family Medicine 07/21/23 Medical Staff Director Relationship Specialty Start Date End Date Frida Dorman, [employer] [address] [place] [address] PCP - General Nurse Practitioner 02/06/24 Medical Staff Director Relationship Specialty Start Date End Date Shaikh Manrique MD [address] [place] [address] PCP - General Internal Medicine 01/06/24 02/05/24 Medical Staff Director Relationship Specialty Start Date End Date Varghese Del Cid MD [address] [place] [phone] PCP - General Family Medicine 01/21/24 Frida Dorman NP [address] [place] [phone] Nurse Practitioner Family Medicine 01/21/24 Medical Staff Director Relationship Specialty Start Date End Date Varghese Del Cid MD [address] [place] [phone] PCP - General Family Medicine 01/21/24 Frida Dorman NP [address] [place] [phone] Nurse Practitioner Family Medicine 01/21/24 Reason for Visit (unrecogniz ed section and content) Reason Comments Pre-op Exam Reason Comments URI Reason Comments Post-op Reason Comments New Patient Reason Comments Post-op POST OP [facility] 07/20/23 Reason Comments Establish Care Follow up after scop e FOR RECORDS PERTAINING TO PATIENTS WHO ARE OR HAVE BEEN ENROLLED IN A CHEMICAL DEPENDENCY/SUBSTANCEABUSE PROGRAM, SOME INFORMATION MAY BE OMITTED. This clinical summary was aggregated from multiple sources. Caution should be exercised in using it in the provision of clinical care. This summary normalizes information from multiple sources, and as a consequence, information in this document may materially change the coding, format and clinical context of patient data. In addition, data may be omitted in some cases. CLINICAL DECISIONS SHOULD BE BASED ON THE PRIMARY CLINICAL RECORDS. [employer] provides no warranty or guarantee of the accuracy or completeness of information in this document.
[2024-08-05 10:05] LABS: Basophils Absolute Auto 0.1 10^3/uL (0.0-0.1); Basophils Percent Auto 0.9 % (0.2-2.0); Eosinophils Absolute Auto 0.1 10^3/uL (0.0-0.7); Eosinophils Percent Auto 1.3 % (0.9-7.0); Hemoglobin 16.9 g/dL (14.0-18.0); Immature Granulocytes Abs Auto 0.05 10^3/uL (0.00-0.03); Immature Granulocytes Pct Auto 0.5 % (0.0-0.5); Lymphocytes Absolute Auto 3.2 10^3/uL (1.2-3.8); Lymphocytes Percent Auto 34.7 % (20.5-60.0); Mean Corpuscular HGB Conc 33.1 g/dL (29.9-35.2); Mean Corpuscular Hemoglobin 31.5 pg (25.9-34.0); Monocytes Absolute Auto 0.8 10^3/uL (0.3-0.8); Monocytes Percent Auto 8.3 % (1.7-12.0); Neutrophils Percent Auto 54.3 % (43.0-75.0); Platelet Count 283 10^3/uL (150-450); Red Blood Count 5.37 10^6/uL (4.70-6.10); Red Cell Distribution Width 13.4 % (11.0-15.0); White Blood Count 9.1 10^3/uL (4.0-11.0)
[2024-08-05 11:10] LABS: Estimated Average Glucose 126 mg/dL
[2024-08-05 11:29] LABS: Prostate Specific Antigen Scrn 15.33 ng/mL (<=4.00)
[2024-08-05 12:31] LABS: Alanine Aminotransferase 26 U/L (16-63); Albumin Globulin Ratio 1.1; Alkaline Phosphatase 83 U/L (46-116); Anion Gap 11.6; Aspartate Amino Transferase 19 U/L (15-37); Bilirubin Total 0.7 mg/dL (0.2-1.0); Calcium 9.8 mg/dL (8.5-10.1); Carbon Dioxide 31.2 mmol/L (21.0-32.0); Chloride 103 mmol/L (98-107); Chol HDL Ratio 2.9; Cholesterol 213 mg/dL (<=200); Estimated GFR (African America >60 (>=60 mL/min/1.73m^2); Estimated GFR (Non-African Ame >60 (>=60 mL/min/1.73m^2); Globulin 3.6 g/dL; Glucose 104 mg/dL (74-106); HDL Cholesterol 73 mg/dL (40-60); Potassium 3.8 mmol/L (3.5-5.1); Sodium 142 mmol/L (136-145); Total Protein 7.6 g/dL (6.4-8.2); Triglycerides 150 mg/dL (<=150)
[2024-08-05 12:55] LABS: Bilirubin Urine NEGATIVE (NEGATIVE); Blood Urine TRACE-I (NEGATIVE); Clarity Urine CLEAR (CLEAR); Color Urine LT. YELLOW (YELLOW); Glucose Urine UA NEGATIVE (NEGATIVE); Ketones Urine NEGATIVE (NEGATIVE); Leukocyte Esterase Urine NEGATIVE (NEGATIVE); Nitrite Urine NEGATIVE (NEGATIVE); Protein Urine TRACE mg/dL (NEG/TRACE); Specific Gravity Urine 1.015 (1.005-1.025); Urobilinogen Urine 0.2 EU/dL (0.2-1.0); pH Urine 7.5 (5.0-9.0)
[2024-08-05 12:59] LABS: Urine Microscopic Indicated YES
[2024-08-05 13:09] LABS: Bacteria Urine TRACE #/HPF (NONE SEEN); Squamous Epithelial Cell Urine RARE #/LPF (NONE/RARE); WBC Urine NONE SEEN #/HPF (NONE SEEN)
[2024-08-05 13:10] LABS: Cast Seen? NONE SEEN #/LPF (NONE SEEN); Crystals Seen? None Seen #/HPF (None Seen); Mucus Urine NONE SEEN (NONE SEEN)
[2024-08-05 13:12] LABS: Creatinine Urine Random 113.63 mg/dL (20.00-300.00); Microalbumin Urine Random 6.6 mg/dL (<=30.0)
== END 2024-08-05 09:33 | disposition home or self-care (01) ==
LOC: LAB 09:33
PROVIDERS: PCP Nurse Practitioner; Visit Provider Nurse Practitioner
DX: Z12.5 Encounter for screening for malignant neoplasm of prostate (principal); Z87.898 Personal history of other specified conditions; I10 Essential (primary) hypertension
CPT/HCPCS: 36415; 80053; 80061; 81001; 82043; 82570; 83036; 85025; G0103

== ENCOUNTER 2024-08-09 10:03 | Outpatient (OUT) | payer MEDICARE, MEDICAID, SELFPAY ==
--- OUTSIDE RECORDS SUMMARY | 2024-08-09 10:24 | XMS_ITS | CCD ---
Author Organization [facility] Care Team Providers Care Senior Environmental Scientist Name Role Phone HOUSE, DR LEE Primary Care Unavailable MUKUND ., MARCO A LECHUGA Consulting Unavailabl e DIAB ., ROXANNE Attending Unavailable DIAB ., ROXANNE Admitting Unavailable JAHAIRA LUNDBERG Consulting Unavailable NO PCP, NO PCP Primary Care Unavailable Gi John Attending Unavailable Nehemias SANCHEZ, Varghese Primary Care Provider Frida Dorman NP Unavailable CRUZ YOUSIF Attending Unavailab le NO PCP, NO PCP Primary Care Unavailable EVAN LOUIS Consulting Unavailable EVAN [place] Admitting Unavailable MARYJANE BASEL Attending Unavailable VARGHESE DEL CID Referring Unavailable VARGHESE DEL CID Primary Care Unavailable EVAN [place]IS Attending Unavailable VARGHESE DEL CID Referring Unavailable VARGHESE DEL CID Primary Care Unavailable YARA, ABDIRASHID M Attending Unavailable VARGHESE DEL CID Referring Unavailable NEHEMIAS, VARGHESE Primary Care Unavailable BOSNILAM, ABDIRASHID M Referring Unavailable VARGHESE DEL CID Primary Care Unavailable BOSIO, ABDIRASHID M Attending Unavailable BOSIO, ABDIRASHID M Referring Unavailable DEWAYNEEREVARGHESE Saldivar Primary Care Unavailable BOSIO, ABDIRASHID M Referring Unavailable DEWAYNEEREVARGHESE Saldivar Primary Care Unavailable BOSIO, ABDIRASHID M Admitting Unavailable BOSIO, ABDIRASHID M Attending Unavailable BOSIO, ABDIRASHID M Referring Unavailable DEWAYNEERER, VARGHESE Primary Care Unavailable BOSIO, ABDIRASHID M Attending Unavailable BOSIO, ABDIRASHID M Referring Unavailable SHAIKH MANRIQUE Primary Care Unavailable ALEX GALE Attending Unavailable SHAIKH MANRIQUE Primary Care Unavailable BOSIO, ABDIRASHID M Attending Unavailable VARGHESE DEL CID Referring Unavailable HILARIA, Primary Care Unavailable BOSIO, ABDIRASHID M Referring Unavailable FRIDA DORMAN Primary Care Unavaila ble BOSIO, ABDIRASHID M Admitting Unavailable BOSIO, ABDIRASHID M Attending Unavailable SHAIKH MANRIQUE Primary Care Unavailable VAL TIWARI Attending Unavailable FRIDA DORMAN Primary Care Unavaila marcella Del Cid MD, Varghese Primary Care Provider Nehemias SANCHEZ, Varghese Primary Care Provider Lakia RAIL TRACK LAYER-PEACH GROWER, Frida Tolentino Primary Care Pr ovider Hilaria SANCHEZ, Primary Care Provider Lakia GUEST SERVICE MANAGER, Frida Unavailable SHAIKH MANRIQUE Attending Unavailable HILARIA, Attending Unavailable SHAIKH MANRIQEU Attending Unavailable HILARIA, Attending Unavailable LAKIA, FRIDA Attending Unavailramy e LAKIA, FRIDA Attending Unavailabl e YISSEL AREVALO Attending [...] propionate 0.05 mg/actuat metered dose nasal spray (14 sources) Corticosteroid Start: 02-05-20 End: 05-03-19 take 1-2 spray(s) nasal route once daily fluticasone (Flonase) 50 MCG/ACT nasal spray Indications: Viral URI Administer 1-2 sprays into each nostril Daily Shake gently. Before first use, prime pump. After use, clean tip and replace cap. 16 g 2 05/03/2024 05/03/2025 Active methylPREDNISolone (2 sources) Corticosteroid Start: 05-03-19 End: 05-10-19 methylPREDNISolone (Medrol Dospak) 4 MG tablets Indications: Upper respiratory tract infection, unspecified type Follow schedule on package instructions 21 tablet 05/03/2024 05/10/2024 Active sennosides, senior living 8.6 mg oral tablet (18 sources) Start: [...] Documented Da te Episodic/Chronic Diverticulosis and diverticulitis (14 sources) Diverticulitis of large intestine without perforation or abscess without bleeding; Translations: [Perforation of sigmoid colon due to diverticulitis] Onset: 09-23-2022 08-19-2023 Chronic Essential hypertension (17 sources) Essential hypertension; Translations: [Essential (primary) hypertension] Onset: 03-27-2023 03-27-2023 Chronic Genitourinary symptoms and ill-defined conditions (2 sources) Asymptomatic microscopic hematuria; Translations: [Asymptomatic microscopic hematuria] Onset: 08-06-2024 08-06-2024 Episodic Other gastrointestinal disorders (14 sources) Colostomy present; Translations: [Colostomy status] Onset: 08-19-2023 08-19-2023 Chronic Other gastrointestinal disorders (14 sources) Chronic idiopathic constipation; Translations: [Chronic idiopathic constipation] Onset: 10-21-2023 10-21-2023 Chronic Other screening for suspected conditions (not mental disorders or infectious disease) (9 sources) Patient encounter status; Translations: [Encounter for screening for malignant neoplasm of prostate] Onset: 08-03-2024 08-03-2024 Episodic Residual codes; unclassified (1 source) Pain, unspecified; Translations: [Pain, unspecified] Onset: 07-20-2023 Episodic Substance-related disorders (1 source) Nicotine dependence, cigarettes, uncomplicated; Translations: [NICOTINE DEPEND CIGARETTES UNCOMP] Onset: 09-23-2022 Chronic Unclassified (1 source) Establish Care Onset: 01-27-2024 Unclassified (1 source) New Patient Onset: 11-04-2023 Unclassified (1 source) Post-op Onset: 08-07-2023 Unclassified (1 source) 63 yo M Cipriano Arzate 1960 . At [place] ER abd pain since 9am. CT perforated sigmoid colon zosyn started. Spoke with Dr Missy FELIX to ER NPO no NG tube needed. Onset: 07-19-2023 Past or Other Problems Problem Classification Problem Date Documented Da te Episodic/Chronic Abdominal hernia (20 sources) Parastomal hernia; Translations: [Parastomal hernia without obstruction or gangrene] Onset: 11-23-2023 11-25-2023 Episodic Abdominal pain (5 sources) Right lower quadrant pain; Translations: [Abdominal pain] Onset: 09-20-2022 Episodic Cardiac dysrhythmias (1 source) Tachycardia, unspecified; Translations: [Tachycardia, unspecified] Onset: 07-19-2023 Episodic Disorders of teeth and jaw (12 sources) Toothache; Translations: [Other specified disorders of teeth and supporting structures] Onset: 03-27-2023 Resolved: 08-03-2024 03-27-2023 Episodic Mood disorders (13 sources) Mood disorders Onset: 07-20-2023 Resolved: 08-03-2024 07-20-2023 Other aftercare (12 sources) Post-discharge follow-up; Translations: [Encounter for follow-up [...] 11-23-2023 11-23-2023 Episodic Other nervous system disorders (12 sources) Paresthesia of hand ; Translations: [Anesthesia of skin] Onset: 09-25-2023 09-25-2023 Episodic Other nervous system disorders (1 source) Other acute postprocedural pain; Translations: [Other acute postprocedural pain] Onset: 07-19-2023 Episodic Other upper respiratory infections (20 sources) Viral upper respiratory tract infection; Translations: [Acute upper respiratory infection, unspecified] Onset: 02-05-2024 Resolved: 08-03-2024 02-05-2024 Episodic Residual codes; unclassified (14 sources) H/O: endocrine disorder; Translations: [Personal history of other specified conditions] Onset: 03-27-2023 03-27-2023 Episodic Urinary tract infections (12 sources) Cystitis; Translations: [Cystitis, unspecified without hematuria] Onset: 10-21-2023 10-21-2023 Episodic Results Test Name Value Interpretation Reference Range Facility ALL CBC WITH AUTO DIFFon BASOPHILS ABSOLUTE AUTO 0.1 [facility] Basophils/100 WBC (Bld) 0.9 % 0.2 - 2.0 % [facility] Eosinophils/100 WBC (Bld) 1.3 % 0.9 - 7.0 % [facility] Erythrocyte distribution width (RBC) [Ratio] 13.4 % 11.0 - 15.0 % [facility] Hematocrit (Bld) [Volume fraction] 51 % 42.0 - 54.0 % [facility] Hemoglobin (Bld) [Mass/Vol] 16.9 g/dL 14.0 - 18.0 g/dL [facility] IMMATURE GRANULOCYTES ABS AUTO 0.[address] [facility] Immature granulocytes/100 WBC (Bld) 0.5 % 0.0 - 0.5 % [facility] Interpretation and review of laboratory results [facility]normal [facility] LYMPHOCYTES ABSOLUTE AUTO 3.2 [facility] Lymphocytes/100 WBC (Bld) 34.7 % 20.5 - 60.0 % [facility] MCH (RBC) [Entitic mass] 31.5 pg 25.9 - 34.[address] [facility] MCHC (RBC) [Mass/Vol] 33.1 g/dL 29.9 - 35.2 g/dL [facility] MCV (RBC) [Entitic vol] 95 fL High 80.0 - 94.[address] [facility] MONOCYTES ABSOLUTE AUTO 0.8 [facility] Monocytes/100 WBC (Bld) 8.3 % 1.7 - 12.0 % [facility] NEUTROPHILS ABSOLUTE AUTO 5 [facility] Neutrophils/100 WBC (Bld) 54.3 % 43.0 - 75.0 % [facility] Platelet mean volume (Bld) [Entitic vol] 10 fL 9.5 - 13.[address] [facility] TBH EO # 0.1 [facility] PLT 283 [facility] RBC 5.37 [facility] WBC 9.1 [facility] ECG 12 leadon 02-06-2024 TRACEMASTERVUE [facility] Surgical Pathologyon 09-13-2 024 Surgical Pathology Normal [facility] Comment on above: Result Comment: [facility] [address] [place] [address] Surgical Pathology Consultation Patient Name:CIPRIANO ARZATE:1960 (Age: 63)Gender:MTaken:01/09/2024eported:01/13/2024hysician(s):Abdirashid Boss M.D. ( )Copy To: Rec. #:[id number]: #[id number] Final Pathologic Diagnosis Transverse colon polyps, biopsy: Tubular adenoma and hyperplastic polyp. Report Electronically Signed [facility]/01/13/2024Matt Mayes M.D. Interpretation [place] [address], License number: [id number]. Clinical History Colostomy status. Gross Description Received in formalin labeled WHITE, transverse polyps are 2 ortiz soft tissue bits, 0.2 cm each. The specimen is filtered and submitted entirely in a single cassette. (1, ns, [id number], m3) . med/01/09/2024GP Specimen(s) Received Transverse colon polyps Fee Codes(s): 1; 07797 BASIC METABOLIC PANLon 12-25 Anion gap [Moles/Vol] 11 mmol/L Normal -15 [facility] Comment on above: Performed By: #### C BCA, PINR, 31788-8, 67375-2, BMP, 47790-6, 2777-1 #### [facility] ([id number]) [address] [place] [address], [address] [place] [address] Calcium [Mass/Vol] 10.0 mg/dL Normal 8.5-10.5 [facility] Comment on above: Performed By: #### C BCA, PINR, 55412-3, 82256-8, BMP, 10102-4, 2777-1 #### [facility] ([id number]) [address], [address] [place] [address] Chloride [Moles/Vol] 103 mmol/L Normal 98-109 [facility] Comment on above: Performed By: #### C BCA, PINR, 64272-2, 52302-7, BMP, 13457-6, 2777-1 #### [facility] ([id number]) [address], [address] [place] [address] CO2 [Moles/Vol] 27 mmol/L Normal 22-32 [facility] Comment on above: Performed By: #### C BCA, PINR, 96824-3, 14971-7, BMP, 25370-0, 2777-1 #### [facility] ([id number]) [address], [address] [place] [address] Creatinine [Mass/Vol] 1.00 mg/dL Normal 0.60-1.30 [facility] Comment on above: Result Comment: METH OD TRACEABLE TO IDMS STANDARD Performed By: #### C BCA, PINR, 36331-4, 48565-3, BMP, 91495-8, 2776-1 #### [facility] ([id number]) [address], [address] [place] [address] GFR/1.73 sq M.predicted among non-blacks MDRD (S/P/Bld) [Vol rate/Area] 84 mL/min/{1.73_m2} Normal >59 [facility] Comment on above: Result Comment: Reported eGFR is based on the CKD-EPI 2020 equation that does not use a race coefficient. Performed By: #### C BCA, PINR, 42532-1, 64996-9, BMP, 30628-2, 7-1 #### [facility] ([id number]) [address], [address] [place] [address] Glucose [Mass/Vol] 119 mg/dL High 65-99 [facility] Comment on above: Performed By: #### C BCA, PINR, 42278-0, 42472-9, BMP, 44260-3, 7-1 #### [facility] ([id number]) [address], [address] [place] [address] Potassium [Moles/Vol] 3.8 mmol/L Normal 3.5-5.0 [facility] Comment on above: Performed By: #### C BCA, PINR, 31564-3, 50278-3, BMP, 16928-3, 7-1 #### [facility] ([id number]) [address], [address] [place] [address] Sodium [Moles/Vol] 141 mmol/L Normal 134-146 [facility] Comment on above: Performed By: #### C BCA, PINR, 63788-4, 22068-7, BMP, 64659-9, 2776-1 #### [facility] ([id number]) [address], [address] [place] [address] Urea nitrogen [Mass/Vol] 16 mg/dL Normal 5-27 [facility] Comment on above: Performed By: #### C BCA, PINR, 74785-0, 58352-7, BMP, 35794-8, 7-1 #### [facility] ([id number]) [address], [address] [place] [address] Basic Metabolic Panelon 08-3 0-2023 Anion gap [Moles/Vol] 11 mmol/L 5 - 15 mmol/L [facility] Calcium [Mass/Vol] 10.0 mg/dL 8.5 - 10. 5 mg/dL [facility] Chloride [Moles/Vol] 103 mmol/L 98 - 109 mmol/L [facility] CO2 [Moles/Vol] 27 mmol/L 22 - 32 mmol/L [facility] Creatinine [Mass/Vol] 1.00 mg/dL 0.60 - 1.30 mg/dL [facility] Comment on above: METHOD TRACEABLE TO IDMS STANDARD eGFR (CKD-EPI)non-race dependent 84 - PINF [facility] Comment on above: Reported eGFR is based on the CKD-EPI 2020 equation that does not use a race coefficient. Glucose [Mass/Vol] 119 mg/dL High 65 - 99 mg/dL [facility] Interpretation and review of laboratory results Abnormal [facility] Potassium [Moles/Vol] 3.8 mmol/L 3.5 - 5.0 mmol/L [facility] Sodium [Moles/Vol] 141 mmol/L 134 - 146 mmol/L [facility] Urea nitrogen [Mass/Vol] 16 mg/dL 5 - 27 mg/dL [facility] CT ABDOMEN AND PELVIS W CONT [...] Gay MD on 11/27/2023 10:50 AM Normal [facility] CREATININEon 11-04-2023 Creatinine [Mass/Vol] 0.97 mg/dL Normal 0.60-1.30 [facility] Comment on above: Result Comment: METH OD TRACEABLE TO IDMS STANDARD Performed By: #### C AQUILES PINJanna, 56458-1, 61001-7, BMP, 63727-3, 2777-1 #### [facility] ([id number]) [address] [address] GFR/1.73 sq M.predicted among non-blacks MDRD (S/P/Bld) [Vol rate/Area] 87 mL/min/{1.73_m2} Normal >59 [facility] Comment on above: Result Comment: Reported eGFR is based on the CKD-EPI 2020 equation that does not use a race coefficient. Performed By: #### C BCA, PINR, 77474-0, 36848-6, BMP, 27349-5, 2777-1 #### [facility] ([id number]) [address] [address] BASIC METABOLIC PANLon 07-25 Anion gap [Moles/Vol] 10 mmol/L Normal 5-15 [facility] Comment on above: Performed By: #### C BCA, PINR, 56739-7, 55342-4, BMP, 07472-8, 2777-1 #### [facility] ([id number]) [address] [address] Calcium [Mass/Vol] 8.5 mg/dL Normal 8.5-10.5 [facility] Comment on above: Performed By: #### C BCA, PINR, 64896-9, 87296-1, BMP, 33376-2, 2777-1 #### [facility] ([id number]) [address] [address] Chloride [Moles/Vol] 101 mmol/L Normal 98-109 [facility] Comment on above: Performed By: #### C BCA, PINR, 96310-9, 22966-2, BMP, 59382-1, 2777-1 #### [facility] ([id number]) [address] [address] CO2 [Moles/Vol] 26 mmol/L Normal 22-32 [facility] Comment on above: Performed By: #### C BCA, PINR, 07528-0, 46592-4, BMP, 69643-4, 2776-1 #### [facility] ([id number]) [address], [facility] [address] [place] [address] Creatinine [Mass/Vol] 0.78 mg/dL Normal 0.60-1.30 [facility] Comment on above: Result Comment: METH OD TRACEABLE TO IDMS STANDARD Performed By: #### C BCA, PINR, 90969-1, 81337-1, BMP, 73593-2, 2776-1 #### [facility] ([id number]) [address], [address] [address] eGFR (CKD-EPI) NON-RACE DEPENDENT >90 Normal >59 [facility] Comment on above: Result Comment: Reported eGFR is based on the CKD-EPI 2020 equation that does not use a race coefficient. Performed By: #### C BCA, PINR, 33843-4, 35548-2, BMP, 48438-2, 2776-1 #### [facility] ([id number]) [address], [address] [address] Glucose [Mass/Vol] 94 mg/dL Normal 65-99 [facility] Comment on above: Performed By: #### C BCA, PINR, 21861-3, 05839-1, BMP, 10581-3, 2776-1 #### [facility] ([id number]) [address] [address] [place] [address] Potassium [Moles/Vol] 3.6 mmol/L Normal 3.5-5.0 [facility] Comment on above: Performed By: #### C BCA, PINR, 50921-0, 69702-0, BMP, 88854-7, 7-1 #### [facility] ([id number]) [address], [address] [place] [address] Sodium [Moles/Vol] 137 mmol/L Normal 134-146 [facility] Comment on above: Performed By: #### C BCA, PINR, 35964-2, 04466-9, BMP, 79672-9, 7-1 #### [facility] ([id number]) [address], [address] [place] [address] Urea nitrogen [Mass/Vol] 16 mg/dL Normal 5-27 [facility] Comment on above: Performed By: #### C BCA, PINR, 73225-3, 79765-1, BMP, 08151-0, 2776-1 #### [facility] ([id number]) [address], [address] [place] [address] CBC AND AUTO DIFFon 20 24 ABSOLUTE BASOPHIL 0.0 X10E9/L Normal 0.0-0.2 [facility] Comment on above: Performed By: #### C BCA, PINR, 26055-3, 30575-7, BMP, 16261-5, 2776-1 #### [facility] ([id number]) [address], [address] [place] [address] ABSOLUTE NEUTROPHIL 7.9 X10E9/L High 1.5-6.6 [facility] Comment on above: Performed By: #### C BCA, PINR, 35567-3, 77968-9, BMP, 81993-2, 2776- #### [facility] ([id number]) [address], [address] [place] [address] Basophils/100 WBC (Bld) 0.2 % Normal [facility] Comment on above: Performed By: #### C BCA, PINR, 68686-2, 93330-6, BMP, 23439-8, 2776-1 #### [facility] ([id number]) [address] [address] [place] [address] Eosinophils (Bld) [#/Vol] 0.1 10*3/uL Normal 0.0-0.4 [facility] Comment on above: Performed By: #### C BCA, PINR, 38162-5, 10741-1, BMP, 95991-4, 7-1 #### [facility] ([id number]) [address] [address] Eosinophils/100 WBC (Bld) 1.0 % Normal [facility] Comment on above: Performed By: #### C BCA, PINR, 24180-6, 48891-7, BMP, 65502-1, 2776- #### [facility] ([id number]) [address] [address] Erythrocyte distribution width (RBC) [Ratio] 14.0 % Normal 11.5-15.0 [facility] Comment on above: Performed By: #### C BCA, PINR, 96292-4, 34055-0, BMP, 71820-8, 2776-1 #### [facility] ([id number]) [address] [address] Hematocrit (Bld) [Volume fraction] 43.7 % Normal 39-49 [facility] Comment on above: Performed By: #### C BCA, PINR, 46949-6, 49081-7, BMP, 23937-0, 2776-1 #### [facility] ([id number]) [address] [address] Hemoglobin (Bld) [Mass/Vol] 14.4 g/dL Normal 13.0-17.0 [facility] Comment on above: Performed By: #### C BCA, PINR, 98439-1, 78214-8, BMP, 11710-9, 2776-1 #### [facility] ([id number]) [address] [address] Lymphocytes (Bld) [#/Vol] 1.2 10*3/uL Normal 1.0-3.5 [facility] Comment on above: Performed By: #### C BCA, PINR, 90276-1, 23567-0, BMP, 18239-1, 2776-1 #### [facility] ([id number]) [address], [facility] [address] [place] [address] Lymphocytes/100 WBC (Bld) 11.0 % Normal [facility] Comment on above: Performed By: #### C BCA, PINR, 59238-0, 35814-4, BMP, 29071-3, 2776- #### [facility] ([id number]) [address], [address] [address] MCH (RBC) [Entitic mass] 31.2 pg Normal 27-34 [facility] Comment on above: Performed By: #### C BCA, PINR, 35186-2, 14082-7, BMP, 76466-3, 2776-1 #### [facility] ([id number]) [address], [facility] [address] [place] [address] MCHC (RBC) [Mass/Vol] 33.0 g/dL Normal 32-36 [facility] Comment on above: Performed By: #### C BCA, PINR, 13842-1, 99388-2, BMP, 96367-5, 2776- #### [facility] ([id number]) [address] [address] [place] [address] MCV (RBC) [Entitic vol] 95 fL Normal 80-100 [facility] Comment on above: Performed By: #### C BCA, PINR, 47302-3, 54492-5, BMP, 37259-8, 2776-1 #### [facility] ([id number]) [address] [address] [place] [address] Monocytes (Bld) [#/Vol] 1.6 10*3/uL High 0-0.9 [facility] Comment on above: Performed By: #### C BCA, PINR, 67668-3, 02102-0, BMP, 18684-7, 2777-1 #### [facility] ([id number]) [address], [address] [place] [address] Monocytes/100 WBC (Bld) 14.8 % Normal [facility] Comment on above: Performed By: #### C BCA, PINR, 28057-7, 27461-6, BMP, 74202-8, 2776-1 #### [facility] ([id number]) [address], [address] [place] [address] Neutrophils/100 WBC (Bld) 73.0 % Normal [facility] Comment on above: Performed By: #### C BCA, PINR, 27073-0, 57011-1, BMP, 48472-5, 277-1 #### [facility] ([id number]) [address], [address] [place] [address] Platelet mean volume (Bld) [Entitic vol] 8.2 fL Normal 7-12 [facility] Comment on above: Performed By: #### C BCA, PINR, 50178-4, 04372-2, BMP, 07830-1, 2777-1 #### [facility] ([id number]) [address], [address] [place] [address] Platelets (Bld) [#/Vol] 315 10*3/uL Normal 150-450 [facility] Comment on above: Performed By: #### C BCA, PINR, 53306-6, 53342-8, BMP, 99720-9, 2776-1 #### [facility] ([id number]) [address], [address] [place] [address] RBC COUNT 4.62 X10E12/L Normal 4.10-5.70 [facility] Comment on above: Performed By: #### C BCA, PINR, 90339-5, 62580-6, BMP, 20127-2, 2776-1 #### [facility] ([id number]) [address], [address] [place] [address] WBC (Bld) [#/Vol] 10.8 10*3/uL Normal 4.0-11.0 [facility] Comment on above: Performed By: #### C BCA, PINR, 62191-8, 77048-7, BMP, 90895-2, 2776-1 #### [facility] ([id number]) [address], [address] [place] [address] MAGNESIUMon 07-26-2023 Magnesium [Mass/Vol] 2.4 mg/dL Normal 1.8-2.6 [facility] Comment on above: Performed By: #### C BCA, PINR, 03714-3, 39962-5, BMP, 41777-3, 1 #### [facility] ([id number]) [address], [address] [place] [address] Magnesium [Mass/Vol] 1.9 mg/dL Normal 1.8-2.6 [facility] Comment on above: Performed By: #### C BCA, PINR, 54394-3, 05214-7, BMP, 21144-8, 7-1 #### [facility] ([id number]) [address], [address] [place] [address] PHOSPHORUSon 07-26-2023 Phosphate [Mass/Vol] 2.6 mg/dL Normal 2.4-4.9 [facility] Comment on above: Performed By: #### C BCA, PINR, 94812-8, 50097-9, BMP, 68317-2, 2776-1 #### [facility] ([id number]) [address], [address] [place] [address] POTASSIUMon 07-26-2023 Potassium [Moles/Vol] 3.9 mmol/L Normal 3.5-5.0 [facility] Comment on above: Performed By: #### C BCA, PINR, 01642-2, 50503-6, BMP, 66533-6, 2776-1 #### [facility] ([id number]) [address], [address] [place] [address] BASIC METABOLIC PANLon 07-24 Anion gap [Moles/Vol] 6 mmol/L Normal 5-15 [facility] Comment on above: Performed By: #### C BCA, PINR, 63586-2, 14697-8, BMP, 62373-6, 2776-1 #### [facility] ([id number]) [address], [address] [place] [address] Calcium [Mass/Vol] 8.4 mg/dL Low 8.5-10.5 [facility] Comment on above: Performed By: #### C BCA, PINR, 01580-6, 67650-4, BMP, 62997-8, 2776-1 #### [facility] ([id number]) [address], [address] [place] [address] Chloride [Moles/Vol] 99 mmol/L Normal 98-109 [facility] [facility] Comment on above: Performed By: #### C BCA, PINR, 95443-1, 40204-7, BMP, 01357-0, 2776-1 #### [facility] ([id number]) [address] [place] [address] CO2 [Moles/Vol] 30 mmol/L Normal 22-32 [facility] Comment on above: Performed By: #### C BCA, PINR, 48668-9, 33882-3, BMP, 53096-2, 2776-1 #### [facility] ([id number]) [address], [address] [place] [address] Creatinine [Mass/Vol] 0.80 mg/dL Normal 0.60-1.30 [facility] Comment on above: Result Comment: METH OD TRACEABLE TO IDMS STANDARD Performed By: #### C BCA, PINR, 95974-9, 06520-4, BMP, 49866-0, 2776-1 #### [facility] ([id number]) [address], [address] [place] [address] eGFR (CKD-EPI) NON-RACE DEPENDENT >90 Normal >59 [facility] Comment on above: Result Comment: Reported eGFR is based on the CKD-EPI 2020 equation that does not use a race coefficient. Performed By: #### C BCA, PINR, 86449-2, 88754-8, BMP, 35800-3, 2776-1 #### [facility] ([id number]) [address], [address] [place] [address] Glucose [Mass/Vol] 95 mg/dL Normal 65-99 [facility] Comment on above: Performed By: #### C BCA, PINR, 84793-4, 60499-9, BMP, 83026-8, 2776-1 #### [facility] ([id number]) [address], [address] [place] [address] Potassium [Moles/Vol] 4.2 mmol/L Normal 3.5-5.0 [facility] Comment on above: Performed By: #### C BCA, PINR, 16223-6, 22524-1, BMP, 51750-4, 2776-1 #### [facility] ([id number]) [address], [address] [place] [address] Sodium [Moles/Vol] 135 mmol/L Normal 134-146 [facility] Comment on above: Performed By: #### C BCA, PINR, 29867-7, 10532-3, BMP, 26623-2, 2777-1 #### [facility] ([id number]) [address], [address] [place] [address] Urea nitrogen [Mass/Vol] 15 mg/dL Normal 5-27 [facility] Comment on above: Performed By: #### C BCA, PINR, 93021-2, 54148-1, BMP, 52032-7, 2776-1 #### [facility] ([id number]) [address], [facility] [address] [place] [address] CBC AND AUTO DIFFon 07-25-19 24 ABSOLUTE BASOPHIL 0.0 X10E9/L Normal 0.0-0.2 [facility] Comment on above: Performed By: #### C BCA, PINR, 12474-2, 59153-6, BMP, 78321-7, 2776- #### [facility] ([id number]) [address], [facility] [address] [place] [address] ABSOLUTE NEUTROPHIL 7.0 X10E9/L High 1.5-6.6 [facility] Comment on above: Performed By: #### C BCA, PINR, 88011-4, 10042-6, BMP, 38499-3, 2776- #### [facility] ([id number]) [address] [address] Basophils/100 WBC (Bld) 0.3 % Normal [facility] Comment on above: Performed By: #### C BCA, PINR, 55567-0, 05407-9, BMP, 77710-7, 2776- #### [facility] ([id number]) [address], [facility] [address] [place] [address] Eosinophils (Bld) [#/Vol] 0.1 10*3/uL Normal 0.0-0.4 [facility] Comment on above: Performed By: #### C BCA, PINR, 03033-3, 87088-1, BMP, 84687-3, 2776-1 #### [facility] ([id number]) [address], [facility] [address] [place] [address] Eosinophils/100 WBC (Bld) 1.1 % Normal [facility] Comment on above: Performed By: #### C BCA, PINR, 21959-1, 94878-2, BMP, 30054-2, 2776-1 #### [facility] ([id number]) [address], [address] [place] [address] Erythrocyte distribution width (RBC) [Ratio] 14.1 % Normal 11.5-15.0 [facility] Comment on above: Performed By: #### C BCA, PINR, 38203-6, 99923-4, BMP, 00786-6, 2776-1 #### [facility] ([id number]) [address] [address] [place] [address] Hematocrit (Bld) [Volume fraction] 43.1 % Normal 39-49 [facility] Comment on above: Performed By: #### C BCA, PINR, 57265-6, 34894-5, BMP, 83914-6, 2776-1 #### [facility] ([id number]) [address] [address] [place] [address] Hemoglobin (Bld) [Mass/Vol] 14.7 g/dL Normal 13.0-17.0 [facility] Comment on above: Performed By: #### C BCA, PINR, 14579-4, 55272-9, BMP, 58000-2, 2776-1 #### [facility] ([id number]) [address] [address] [place] [address] Lymphocytes (Bld) [#/Vol] 1.2 10*3/uL Normal 1.0-3.5 [facility] Comment on above: Performed By: #### C BCA, PINR, 62163-7, 84105-3, BMP, 01551-6, 2776-1 #### [facility] ([id number]) [address], [address] [place] [address] Lymphocytes/100 WBC (Bld) 12.2 % Normal [facility] Comment on above: Performed By: #### C BCA, PINR, 27992-6, 40426-1, BMP, 62865-1, 2776-1 #### [facility] ([id number]) [address], [address] [place] [address] MCH (RBC) [Entitic mass] 31.7 pg Normal 27-34 [facility] Comment on above: Performed By: #### C BCA, PINR, 36741-2, 26029-3, BMP, 22136-7, 2776- #### [facility] ([id number]) [address], [facility] [address] [place] [address] MCHC (RBC) [Mass/Vol] 34.0 g/dL Normal 32-36 [facility] Comment on above: Performed By: #### C BCA, PINR, 76343-4, 20817-5, BMP, 84254-1, 2776- #### [facility] ([id number]) [address], [address] [place] [address] MCV (RBC) [Entitic vol] 93 fL Normal 80-100 [facility] Comment on above: Performed By: #### C BCA, PINR, 33932-0, 99415-1, BMP, 33788-4, 2776- #### [facility] ([id number]) [address], [address] [place] [address] Monocytes (Bld) [#/Vol] 1.3 10*3/uL High 0-0.9 [facility] Comment on above: Performed By: #### C BCA, PINR, 99169-9, 32885-8, BMP, 02557-1, 2776-1 #### [facility] ([id number]) [address], [address] [place] [address] Monocytes/100 WBC (Bld) 13.4 % Normal [facility] Comment on above: Performed By: #### C BCA, PINR, 00360-3, 24828-1, BMP, 25559-5, 2776-1 #### [facility] ([id number]) [address], [address] [place] [address] Neutrophils/100 WBC (Bld) 73.0 % Normal [facility] Comment on above: Performed By: #### C BCA, PINR, 22512-6, 25499-4, BMP, 50492-6, 2776-1 #### [facility] ([id number]) [address], [address] [place] [address] Platelet mean volume (Bld) [Entitic vol] 8.4 fL Normal 7-12 [facility] Comment on above: Performed By: #### C BCA, PINR, 71157-8, 27112-2, BMP, 17390-3, 2776-1 #### [facility] ([id number]) [address], [address] [place] [address] Platelets (Bld) [#/Vol] 319 10*3/uL Normal 150-450 [facility] Comment on above: Performed By: #### C BCA, PINR, 95544-3, 47490-2, BMP, 95255-6, 2776-1 #### [facility] ([id number]) [address], [address] [place] [address] RBC COUNT 4.62 X10E12/L Normal 4.10-5.70 [facility] Comment on above: Performed By: #### C BCA, PINR, 46213-3, 08422-0, BMP, 53221-5, 2776-1 #### [facility] ([id number]) [address], [address] [place] [address] WBC (Bld) [#/Vol] 9.6 10*3/uL Normal 4.0-11.0 [facility] Comment on above: Performed By: #### C BCA, PINR, 33704-0, 68374-2, BMP, 49036-7, 2776-1 #### [facility] ([id number]) [address] [place] [address] MAGNESIUMon 07-25-2023 Magnesium [Mass/Vol] 2.1 mg/dL Normal 1.8-2.6 [facility] Comment on above: Performed By: #### C BCA, PINR, 70044-9, 10110-0, BMP, 88127-8, 2776-1 #### [facility] ([id number]) [address] [place] [address] PHOSPHORUSon 07-25-2023 Phosphate [Mass/Vol] 2.9 mg/dL Normal 2.4-4.9 [facility] Comment on above: Result Comment: SPEC IMEN HEMOLYZED, RESULTS INCREASED SLIGHTLY HEMOLYZED Performed By: #### C BCA, PINR, 96684-3, 28053-7, BMP, 44934-4, 2776-1 #### [facility] ([id number]) [address] [place] [address] BASIC METABOLIC PANLon 07-23 Anion gap [Moles/Vol] 10 mmol/L Normal 5-15 [facility] Comment on above: Performed By: #### C BCA, PINR, 14689-2, 39041-8, BMP, 15999-1, 2776-1 #### [facility] ([id number]) [address], [address] [place] [address] Calcium [Mass/Vol] 8.5 mg/dL Normal 8.5-10.5 [facility] Comment on above: Performed By: #### C BCA, PINR, 44460-2, 70035-2, BMP, 22996-0, 7-1 #### [facility] ([id number]) [address], [address] [place] [address] Chloride [Moles/Vol] 100 mmol/L Normal 98-109 [facility] Comment on above: Performed By: #### C BCA, PINR, 46186-1, 40168-2, BMP, 70731-3, 2777-1 #### [facility] ([id number]) [address], [facility] [address] [place] [address] CO2 [Moles/Vol] 27 mmol/L Normal 22-32 [facility] Comment on above: Performed By: #### C BCA, PINR, 08935-7, 00776-8, BMP, 29062-9, 2777-1 #### [facility] ([id number]) [address] [address] Creatinine [Mass/Vol] 0.84 mg/dL Normal 0.60-1.30 [facility] Comment on above: Result Comment: METH OD TRACEABLE TO IDMS STANDARD Performed By: #### C BCA, PINR, 00204-3, 14247-8, BMP, 38214-2, 2777-1 #### [facility] ([id number]) [address] [address] eGFR (CKD-EPI) NON-RACE DEPENDENT >90 Normal >59 [facility] Comment on above: Result Comment: Reported eGFR is based on the CKD-EPI 2020 equation that does not use a race coefficient. Performed By: #### C BCA, PINR, 57735-9, 87403-8, BMP, 51084-0, 2777-1 #### [facility] ([id number]) [address] [address] [place] [address] Glucose [Mass/Vol] 140 mg/dL High 65-99 [facility] Comment on above: Performed By: #### C BCA, PINR, 65771-3, 16742-8, BMP, 05536-1, 2777-1 #### [facility] ([id number]) [address], [address] [place] [address] Potassium [Moles/Vol] 3.5 mmol/L Normal 3.5-5.0 [facility] Comment on above: Performed By: #### C BCA, PINR, 94753-0, 70377-8, BMP, 39615-3, 2776-1 #### [facility] ([id number]) [address], [address] [place] [address] Sodium [Moles/Vol] 137 mmol/L Normal 134-146 [facility] Comment on above: Performed By: #### C BCA, PINR, 93031-4, 03076-6, BMP, 35778-4, 2776-1 #### [facility] ([id number]) [address], [address] [place] [address] Urea nitrogen [Mass/Vol] 20 mg/dL Normal 5-27 [facility] Comment on above: Performed By: #### C BCA, PINR, 54468-8, 80058-2, BMP, 92649-6, 2776-1 #### [facility] ([id number]) [address] [place] [address] CBC AND AUTO DIFFon 07-24-19 24 ABSOLUTE BASOPHIL 0.0 X10E9/L Normal 0.0-0.2 [facility] Comment on above: Performed By: #### C BCA, PINR, 63807-9, 19353-6, BMP, 34989-5, 2776-1 #### [facility] ([id number]) [address], [address] [place] [address] ABSOLUTE NEUTROPHIL 7.9 X10E9/L High 1.5-6.6 [facility] Comment on above: Performed By: #### C BCA, PINR, 25036-1, 33103-8, BMP, 90834-9, 2776-1 #### [facility] ([id number]) [address] [place] [address] Basophils/100 WBC (Bld) 0.2 % Normal [facility] Comment on above: Performed By: #### C BCA, PINR, 98942-3, 89679-5, BMP, 83600-4, 2776-1 #### [facility] ([id number]) [address] [address] [place] [address] Eosinophils (Bld) [#/Vol] 0.1 10*3/uL Normal 0.0-0.4 [facility] Comment on above: Performed By: #### C BCA, PINR, 54374-8, 94085-8, BMP, 37751-2, 2776- #### [facility] ([id number]) [address] [address] Eosinophils/100 WBC (Bld) 0.7 % Normal [facility] Comment on above: Performed By: #### C BCA, PINR, 85697-7, 69988-1, BMP, 35731-2, 1 #### [facility] ([id number]) [address] [address] [place] [address] Erythrocyte distribution width (RBC) [Ratio] 14.3 % Normal 11.5-15.0 [facility] Comment on above: Performed By: #### C BCA, PINR, 47510-8, 99867-8, BMP, 47372-7, 2776- #### [facility] ([id number]) [address] [address] [place] [address] Hematocrit (Bld) [Volume fraction] 44.3 % Normal 39-49 [facility] Comment on above: Performed By: #### C BCA, PINR, 75270-7, 91076-2, BMP, 76064-7, 2776-1 #### [facility] ([id number]) [address] [address] [place] [address] Hemoglobin (Bld) [Mass/Vol] 14.7 g/dL Normal 13.0-17.0 [facility] Comment on above: Performed By: #### C BCA, PINR, 96888-1, 16912-1, BMP, 92407-3, 2776-1 #### [facility] ([id number]) [address] [place] [address] Lymphocytes (Bld) [#/Vol] 1.3 10*3/uL Normal 1.0-3.5 [facility] Comment on above: Performed By: #### C BCA, PINR, 17113-5, 64788-1, BMP, 02933-5, 2776- #### [facility] ([id number]) [address], [facility] [address] [place] [address] Lymphocytes/100 WBC (Bld) 12.8 % Normal [facility] Comment on above: Performed By: #### C BCA, PINR, 15714-1, 13587-0, BMP, 21611-1, 2776- #### [facility] ([id number]) [address] [place] [address] MCH (RBC) [Entitic mass] 31.5 pg Normal 27-34 [facility] Comment on above: Performed By: #### C BCA, PINR, 52995-7, 96188-6, BMP, 35672-5, 2776- #### [facility] ([id number]) [address] [place] [address] MCHC (RBC) [Mass/Vol] 33.2 g/dL Normal 32-36 [facility] Comment on above: Performed By: #### C BCA, PINR, 69795-2, 44788-9, BMP, 53935-1, 2776-1 #### [facility] ([id number]) [address] [address] [place] [address] MCV (RBC) [Entitic vol] 95 fL Normal 80-100 [facility] Comment on above: Performed By: #### C BCA, PINR, 15871-7, 36590-4, BMP, 10162-2, 2777-1 #### [facility] ([id number]) [address] [place] [address] Monocytes (Bld) [#/Vol] 1.2 10*3/uL High 0-0.9 [facility] Comment on above: Performed By: #### C BCA, PINR, 02436-6, 86316-9, BMP, 74766-2, 2776-1 #### [facility] ([id number]) [address] [place] [address] Monocytes/100 WBC (Bld) 10.9 % Normal [facility] Comment on above: Performed By: #### C BCA, PINR, 81210-6, 20841-7, BMP, 37496-8, 2776-1 #### [facility] ([id number]) [address], [address] [place] [address] Neutrophils/100 WBC (Bld) 75.4 % Normal [facility] Comment on above: Performed By: #### C BCA, PINR, 14651-0, 76169-5, BMP, 95332-5, 2776-1 #### [facility] ([id number]) [address] [place] [address] Platelet mean volume (Bld) [Entitic vol] 8.6 fL Normal 7-12 [facility] Comment on above: Performed By: #### C BCA, PINR, 74442-4, 56774-0, BMP, 38478-8, 2776-1 #### [facility] ([id number]) [address], [address] [place] [address] Platelets (Bld) [#/Vol] 281 10*3/uL Normal 150-450 [facility] Comment on above: Performed By: #### C BCA, PINR, 67951-5, 25829-2, BMP, 87622-9, 7-1 #### [facility] ([id number]) [address] [place] [address] RBC COUNT 4.68 X10E12/L Normal 4.10-5.70 [facility] Comment on above: Performed By: #### C BCA, PINR, 61430-0, 36526-6, BMP, 81543-3, 2776-1 #### [facility] ([id number]) [address] [place] [address] WBC (Bld) [#/Vol] 10.5 10*3/uL Normal 4.0-11.0 [facility] Comment on above: Performed By: #### C BCA, PINR, 76204-5, 43746-3, BMP, 87927-6, 2777-1 #### [facility] ([id number]) [address], [address] [place] [address] MAGNESIUMon 07-24-2023 Magnesium [Mass/Vol] 2.4 mg/dL Normal 1.8-2.6 [facility] Comment on above: Performed By: #### C BCA, PINR, 06138-9, 88036-7, BMP, 14603-0, 2777-1 #### [facility] ([id number]) [address] [place] [address] Magnesium [Mass/Vol] 1.6 mg/dL Low 1.8-2.6 [facility] Comment on above: Performed By: #### C BCA, PINR, 44423-1, 57896-9, BMP, 84479-0, 7-1 #### [facility] ([id number]) [address], [address] [place] [address] PHOSPHORUSon 07-24-2023 Phosphate [Mass/Vol] 2.8 mg/dL Normal 2.4-4.9 [facility] Comment on above: Performed By: #### C BCA, PINR, 30126-7, 11637-4, BMP, 21912-4, 7-1 #### [facility] ([id number]) [address], [address] [place] [address] POTASSIUMon 07-24-2023 Potassium [Moles/Vol] 3.8 mmol/L Normal 3.5-5.0 [facility] Comment on above: Performed By: #### C BCA, PINR, 45929-4, 17080-0, BMP, 51547-6, 7-1 #### [facility] ([id number]) [address] [place] [address] XR ABDOMEN AP 1 VWon 07-23-2 024 XR ABDOMEN AP 1 VW XR ABDOMEN AP 1 VW CLINICAL HISTORY: Ileus or obstruction, abdominal pain Comparison: 07/19/2023 Views: 1 view FINDINGS: * Diffuse dilatation of large and small bowel. Multiple surgical clips. There is air within the rectum. Lung bases clear. IMPRESSION: * Probable postop ileus. Finalized by Doroteo Chavarria MD on 07/24/2023 6:05 PM Normal [facility] BASIC METABOLIC PANLon 07-22 Anion gap [Moles/Vol] 7 mmol/L Normal 5-15 [facility] Comment on above: Performed By: #### C BCA, PINR, 77637-7, 36734-3, BMP, 34381-4, 2776-1 #### [facility] ([id number]) [address] [place] [address] Calcium [Mass/Vol] 9.1 mg/dL Normal 8.5-10.5 [facility] Comment on above: Performed By: #### C BCA, PINR, 05901-1, 55110-5, BMP, 93493-9, 2777-1 #### [facility] ([id number]) [address] [address] Chloride [Moles/Vol] 103 mmol/L Normal 98-109 [facility] Comment on above: Performed By: #### C BCA, PINR, 03865-3, 56468-1, BMP, 67444-8, 2777-1 #### [facility] ([id number]) [address] [address] CO2 [Moles/Vol] 29 mmol/L Normal 22-32 [facility] Comment on above: Performed By: #### C BCA, PINR, 44654-8, 47238-2, BMP, 61850-5, 2777-1 #### [facility] ([id number]) [address] [address] Creatinine [Mass/Vol] 0.84 mg/dL Normal 0.60-1.30 [facility] Comment on above: Result Comment: METH OD TRACEABLE TO IDMS STANDARD Performed By: #### C BCA, PINR, 78123-2, 80396-5, BMP, 12355-9, 2777-1 #### [facility] ([id number]) [address] [address] eGFR (CKD-EPI) NON-RACE DEPENDENT >90 Normal >59 [facility] Comment on above: Result Comment: Reported eGFR is based on the CKD-EPI 2020 equation that does not use a race coefficient. Performed By: #### C BCA, PINR, 59016-2, 71843-6, BMP, 99391-0, 2777-1 #### [facility] ([id number]) [address] [address] Glucose [Mass/Vol] 161 mg/dL High 65-99 [facility] Comment on above: Performed By: #### C BCA, PINR, 28418-4, 01640-6, BMP, 28017-7, 2777-1 #### [facility] ([id number]) [address] [place] [address] Potassium [Moles/Vol] 3.4 mmol/L Low 3.5-5.0 [facility] Comment on above: Performed By: #### C BCA, PINR, 83581-5, 12133-4, BMP, 58430-1, 2776-1 #### [facility] ([id number]) [address] [place] [address] Sodium [Moles/Vol] 139 mmol/L Normal 134-146 [facility] Comment on above: Performed By: #### C BCA, PINR, 15245-6, 57356-9, BMP, 24692-2, 2776-1 #### [facility] ([id number]) [address] [address] [place] [address] Urea nitrogen [Mass/Vol] 16 mg/dL Normal 5-27 [facility] Comment on above: Performed By: #### C BCA, PINR, 82375-1, 29280-9, BMP, 82971-4, 2776-1 #### [facility] ([id number]) [address] [address] CBC AND AUTO DIFFon 07-23-19 ABSOLUTE BASOPHIL 0.0 X10E9/L Normal 0.0-0.2 [facility] Comment on above: Performed By: #### C BCA, PINR, 62422-0, 65061-0, BMP, 36768-3, 2776-1 #### [facility] ([id number]) [address] [address] [place] [address] ABSOLUTE NEUTROPHIL 8.2 X10E9/L High 1.5-6.6 [facility] Comment on above: Performed By: #### C BCA, PINR, 64704-9, 61262-0, BMP, 47373-3, 2776-1 #### [facility] ([id number]) [address] [address] [place] [address] Basophils/100 WBC (Bld) 0.2 % Normal [facility] Comment on above: Performed By: #### C BCA, PINR, 32819-3, 21480-6, BMP, 35861-8, 2776-1 #### [facility] ([id number]) [address], [address] [place] [address] Eosinophils (Bld) [#/Vol] 0.0 10*3/uL Normal 0.0-0.4 [facility] Comment on above: Performed By: #### C BCA, PINR, 63877-4, 23429-9, BMP, 07672-0, 2776- #### [facility] ([id number]) [address], [address] [place] [address] Eosinophils/100 WBC (Bld) 0.4 % Normal [facility] Comment on above: Performed By: #### C BCA, PINR, 77552-4, 45715-1, BMP, 65053-7, 2776-1 #### [facility] ([id number]) [address], [address] [place] [address] Erythrocyte distribution width (RBC) [Ratio] 14.5 % Normal 11.5-15.0 [facility] Comment on above: Performed By: #### C BCA, PINR, 89387-6, 00095-8, BMP, 45924-8, 2776- #### [facility] ([id number]) [address], [address] [place] [address] Hematocrit (Bld) [Volume fraction] 43.3 % Normal 39-49 [facility] Comment on above: Performed By: #### C BCA, PINR, 04184-7, 07057-3, BMP, 08143-4, 2776-1 #### [facility] ([id number]) [address], [address] [place] [address] Hemoglobin (Bld) [Mass/Vol] 14.5 g/dL Normal 13.0-17.0 [facility] Comment on above: Performed By: #### C BCA, PINR, 35889-3, 55820-2, BMP, 76833-0, 2776- #### [facility] ([id number]) [address], [facility] [address] [place] [address] Lymphocytes (Bld) [#/Vol] 1.1 10*3/uL Normal 1.0-3.5 [facility] Comment on above: Performed By: #### C BCA, PINR, 30258-5, 03395-7, BMP, 56263-5, 2776- #### [facility] ([id number]) [address] [address] Lymphocytes/100 WBC (Bld) 10.4 % Normal [facility] Comment on above: Performed By: #### C BCA, PINR, 66883-3, 46780-9, BMP, 27607-2, 2776-04 #### [facility] ([id number]) [address], [address] [address] MCH (RBC) [Entitic mass] 31.2 pg Normal 27-34 [facility] Comment on above: Performed By: #### C BCA, PINR, 85597-1, 97990-3, BMP, 92628-8, 2776- #### [facility] ([id number]) [address] [address] MCHC (RBC) [Mass/Vol] 33.4 g/dL Normal 32-36 [facility] Comment on above: Performed By: #### C BCA, PINR, 57851-0, 42073-2, BMP, 87547-4, 2776- #### [facility] ([id number]) [address] [address] MCV (RBC) [Entitic vol] 94 fL Normal 80-100 [facility] Comment on above: Performed By: #### C BCA, PINR, 12209-7, 21822-5, BMP, 58127-1, 2777-1 #### [facility] ([id number]) [address], [address] [place] [address] Monocytes (Bld) [#/Vol] 1.2 10*3/uL High 0-0.9 [facility] Comment on above: Performed By: #### C BCA, PINR, 14152-1, 30448-9, BMP, 44467-6, 7-1 #### [facility] ([id number]) [address], [address] [place] [address] Monocytes/100 WBC (Bld) 11.5 % Normal [facility] Comment on above: Performed By: #### C BCA, PINR, 70330-8, 74731-9, BMP, 65446-5, 2776-1 #### [facility] ([id number]) [address], [address] [place] [address] Neutrophils/100 WBC (Bld) 77.5 % Normal [facility] Comment on above: Performed By: #### C BCA, PINR, 76663-2, 16606-3, BMP, 28375-9, 7-1 #### [facility] ([id number]) [address], [address] [place] [address] Platelet mean volume (Bld) [Entitic vol] 8.0 fL Normal 7-12 [facility] Comment on above: Performed By: #### C BCA, PINR, 33457-2, 51549-3, BMP, 18641-1, 2776-1 #### [facility] ([id number]) [address], [address] [place] [address] Platelets (Bld) [#/Vol] 267 10*3/uL Normal 150-450 [facility] Comment on above: Performed By: #### C BCA, PINR, 82311-7, 15370-2, BMP, 89984-5, 2776-1 #### [facility] ([id number]) [address], [address] [place] [address] RBC COUNT 4.63 X10E12/L Normal 4.10-5.70 [facility] Comment on above: Performed By: #### C BCA, PINR, 88046-9, 25307-7, BMP, 91331-7, 2776-1 #### [facility] ([id number]) [address], [address] [place] [address] WBC (Bld) [#/Vol] 10.6 10*3/uL Normal 4.0-11.0 [facility] Comment on above: Performed By: #### C BCA, PINR, 68123-0, 97714-0, BMP, 05114-5, 2776-1 #### [facility] ([id number]) [address], [address] [place] [address] MAGNESIUMon 07-23-2023 Magnesium [Mass/Vol] 1.9 mg/dL Normal 1.8-2.6 [facility] Comment on above: Performed By: #### C BCA, PINR, 20765-5, 14218-0, BMP, 20295-1, 2776-1 #### [facility] ([id number]) [address], [address] [place] [address] PHOSPHORUSon 07-23-2023 Phosphate [Mass/Vol] 2.2 mg/dL Low 2.4-4.9 [facility] Comment on above: Performed By: #### C BCA, PINR, 17849-7, 88170-4, BMP, 48048-0, 2776-1 #### [facility] ([id number]) [address], [address] [place] [address] POTASSIUMon 07-23-2023 Potassium [Moles/Vol] 3.9 mmol/L Normal 3.5-5.0 [facility] Comment on above: Performed By: #### C BCA, PINR, 78812-3, 34070-3, BMP, 88783-7, 2776-1 #### [facility] ([id number]) [address], [address] [place] [address] BASIC METABOLIC PANLon 07-21 Anion gap [Moles/Vol] 8 mmol/L Normal 5-15 [facility] Comment on above: Performed By: #### C BCA, PINR, 30082-8, 55431-3, BMP, 89202-8, 2776-1 #### [facility] ([id number]) [address], [address] [place] [address] Calcium [Mass/Vol] 9.1 mg/dL Normal 8.5-10.5 [facility] Comment on above: Performed By: #### C BCA, PINR, 93217-7, 18664-7, BMP, 99071-5, 2776-1 #### [facility] ([id number]) [address], [address] [place] [address] Chloride [Moles/Vol] 102 mmol/L Normal 98-109 [facility] Comment on above: Performed By: #### C BCA, PINR, 24333-9, 90577-6, BMP, 76684-9, 2776-1 #### [facility] ([id number]) [address], [address] [place] [address] CO2 [Moles/Vol] 31 mmol/L Normal 22-32 [facility] Comment on above: Performed By: #### C BCA, PINR, 12477-7, 88042-9, BMP, 72053-2, 2776-1 #### [facility] ([id number]) [address], [address] [place] [address] Creatinine [Mass/Vol] 0.87 mg/dL Normal 0.60-1.30 [facility] Comment on above: Result Comment: METH OD TRACEABLE TO IDMS STANDARD Performed By: #### C BCA, PINR, 97287-7, 71070-5, BMP, 13219-1, 2776-1 #### [facility] ([id number]) [address], [address] [place] [address] eGFR (CKD-EPI) NON-RACE DEPENDENT >90 Normal >59 [facility] Comment on above: Result Comment: Reported eGFR is based on the CKD-EPI 2020 equation that does not use a race coefficient. Performed By: #### C BCA, PINR, 73786-7, 35643-5, BMP, 50600-6, 2776-1 #### [facility] ([id number]) [address], [address] [place] [address] Glucose [Mass/Vol] 107 mg/dL High 65-99 [facility] Comment on above: Performed By: #### C BCA, PINR, 56227-1, 13578-8, BMP, 64825-1, 2776-1 #### [facility] ([id number]) [address], [address] [place] [address] Potassium [Moles/Vol] 3.7 mmol/L Normal 3.5-5.0 [facility] Comment on above: Performed By: #### C BCA, PINR, 55972-0, 95670-4, BMP, 07852-0, 2776-1 #### [facility] ([id number]) [address], [address] [place] [address] Sodium [Moles/Vol] 141 mmol/L Normal 134-146 [facility] Comment on above: Performed By: #### C BCA, PINR, 84679-5, 90376-4, BMP, 22302-9, 2776-1 #### [facility] ([id number]) [address], [address] [place] [address] Urea nitrogen [Mass/Vol] 14 mg/dL Normal 5-27 [facility] Comment on above: Performed By: #### C BCA, PINR, 01125-5, 99502-5, BMP, 90745-7, 2777-1 #### [facility] ([id number]) [address], [address] [place] [address] CBC AND AUTO DIFFon 07-22-19 Erythrocyte distribution width (RBC) [Ratio] 14.5 % Normal 11.5-15.0 [facility] Comment on above: Performed By: #### C BCA, PINR, 33119-4, 18280-2, BMP, 00121-3, 7-1 #### [facility] ([id number]) [address], [address] [place] [address] Hematocrit (Bld) [Volume fraction] 42.9 % Normal 39-49 [facility] Comment on above: Performed By: #### C BCA, PINR, 85551-6, 17867-2, BMP, 87618-5, 277-1 #### [facility] ([id number]) [address], [address] [place] [address] Hemoglobin (Bld) [Mass/Vol] 14.4 g/dL Normal 13.0-17.0 [facility] Comment on above: Performed By: #### C BCA, PINR, 64661-8, 62683-7, BMP, 10770-5, 2776-1 #### [facility] ([id number]) [address], [address] [place] [address] Lymphocytes (Bld) [#/Vol] 1.4 10*3/uL Normal 1.0-3.5 [facility] Comment on above: Performed By: #### C BCA, PINR, 63470-0, 78884-5, BMP, 15038-0, 2777-1 #### [facility] ([id number]) [address], [address] [place] [address] Lymphocytes/100 WBC (Bld) 10.0 % Normal [facility] Comment on above: Performed By: #### C BCA, PINR, 73894-8, 33713-2, BMP, 72011-9, 2776- #### [facility] ([id number]) [address], [facility] [address] [place] [address] MCH (RBC) [Entitic mass] 31.5 pg Normal 27-34 [facility] Comment on above: Performed By: #### C BCA, PINR, 98335-2, 87338-8, BMP, 34123-7, 2776- #### [facility] ([id number]) [address], [facility] [address] [place] [address] MCHC (RBC) [Mass/Vol] 33.6 g/dL Normal 32-36 [facility] Comment on above: Performed By: #### C BCA, PINR, 97265-0, 70476-0, BMP, 94692-6, 2776-04 #### [facility] ([id number]) [address] [address] [place] [address] MCV (RBC) [Entitic vol] 94 fL Normal 80-100 [facility] Comment on above: Performed By: #### C BCA, PINR, 54456-1, 05540-0, BMP, 30038-3, 2776- #### [facility] ([id number]) [address] [address] Monocytes (Bld) [#/Vol] 0.9 10*3/uL Normal 0-0.9 [facility] Comment on above: Performed By: #### C BCA, PINR, 06650-9, 54608-3, BMP, 85623-9, 2776- #### [facility] ([id number]) [address] [address] [place] [address] Monocytes/100 WBC (Bld) 6.0 % Normal [facility] Comment on above: Performed By: #### C BCA, PINR, 32424-5, 17875-1, BMP, 95179-6, 2777-1 #### [facility] ([id number]) [address], [address] [place] [address] Neutrophils (Bld) [#/Vol] 11.9 10*3/uL High 1.5-6.6 [facility] Comment on above: Performed By: #### C BCA, PINR, 49691-2, 03245-1, BMP, 71329-3, 7-1 #### [facility] ([id number]) [address], [address] [place] [address] Platelet mean volume (Bld) [Entitic vol] 8.5 fL Normal 7-12 [facility] Comment on above: Performed By: #### C BCA, PINR, 69253-7, 54194-3, BMP, 60265-4, 2776-1 #### [facility] ([id number]) [address], [address] [place] [address] Platelets (Bld) [#/Vol] 240 10*3/uL Normal 150-450 [facility] Comment on above: Performed By: #### C BCA, PINR, 93436-8, 26066-7, BMP, 46292-7, 2776-1 #### [facility] ([id number]) [address], [address] [place] [address] RBC COUNT 4.57 X10E12/L Normal 4.10-5.70 [facility] Comment on above: Performed By: #### C BCA, PINR, 36585-1, 28414-9, BMP, 46920-0, 7-1 #### [facility] ([id number]) [address], [address] [place] [address] RBC morphology finding Nom (Bld) NORMAL Normal [facility] Comment on above: Performed By: #### C BCA, PINR, 97191-9, 33738-4, BMP, 09657-9, 2776-1 #### [facility] ([id number]) [address], [address] [place] [address] SEG NEUTROPHIL 84.0 % Normal [facility] Comment on above: Performed By: #### C BCA, PINR, 18126-4, 36053-2, BMP, 11636-8, 2776-1 #### [facility] ([id number]) [address], [address] [place] [address] WBC (Bld) [#/Vol] 14.2 10*3/uL High 4.0-11.0 [facility] Comment on above: Performed By: #### C BCA, PINR, 97734-3, 58630-5, BMP, 93714-6, 2776-1 #### [facility] ([id number]) [address], [address] [place] [address] MAGNESIUMon 07-22-2023 Magnesium [Mass/Vol] 2.0 mg/dL Normal 1.8-2.6 [facility] Comment on above: Performed By: #### C BCA, PINR, 06049-8, 29298-0, BMP, 13013-4, 2776-1 #### [facility] ([id number]) [address], [address] [place] [address] PHOSPHORUSon 07-22-2023 Phosphate [Mass/Vol] 2.7 mg/dL Normal 2.4-4.9 [facility] Comment on above: Performed By: #### C BCA, PINR, 07865-1, 20190-6, BMP, 23456-7, 2776-1 #### [facility] ([id number]) [address], [address] [place] [address] Phosphate [Mass/Vol] 1.7 mg/dL Low 2.4-4.9 [facility] Comment on above: Performed By: #### C BCA, PINR, 17030-1, 09378-1, BMP, 53677-0, 2776-1 #### [facility] ([id number]) [address], [address] [place] [address] POTASSIUMon 07-22-2023 Potassium [Moles/Vol] 4.0 mmol/L Normal 3.5-5.0 [facility] Comment on above: Performed By: #### C BCA, PINR, 45961-8, 15055-3, BMP, 66895-6, 2776-1 #### [facility] ([id number]) [address], [address] [place] [address] BASIC METABOLIC PANLon 07-20 Anion gap [Moles/Vol] 7 mmol/L Normal 5-15 [facility] Comment on above: Performed By: #### C BCA, PINR, 72816-0, 47876-9, BMP, 18583-4, 2776-1 #### [facility] ([id number]) [address], [address] [place] [address] Calcium [Mass/Vol] 8.9 mg/dL Normal 8.5-10.5 [facility] Comment on above: Performed By: #### C BCA, PINR, 40297-5, 63943-2, BMP, 33597-0, 2776-1 #### [facility] ([id number]) [address], [address] [place] [address] Chloride [Moles/Vol] 102 mmol/L Normal 98-109 [facility] Comment on above: Performed By: #### C BCA, PINR, 81023-1, 07904-2, BMP, 47181-8, 7-1 #### [facility] ([id number]) [address], [address] [place] [address] CO2 [Moles/Vol] 31 mmol/L Normal 22-32 [facility] Comment on above: Performed By: #### C BCA, PINR, 87721-7, 33600-0, BMP, 88466-1, 2777-1 #### [facility] ([id number]) [address], [address] [place] [address] Creatinine [Mass/Vol] 0.84 mg/dL Normal 0.60-1.30 [facility] Comment on above: Result Comment: METH OD TRACEABLE TO IDMS STANDARD Performed By: #### C BCA, PINR, 95367-4, 55285-7, BMP, 59387-0, 2777-1 #### [facility] ([id number]) [address], [address] [address] eGFR (CKD-EPI) NON-RACE DEPENDENT >90 Normal >59 [facility] Comment on above: Result Comment: Reported eGFR is based on the CKD-EPI 2020 equation that does not use a race coefficient. Performed By: #### C BCA, PINR, 35407-8, 53153-9, BMP, 55776-8, 2777-1 #### [facility] ([id number]) [address], [address] [place] [address] Glucose [Mass/Vol] 133 mg/dL High 65-99 [facility] Comment on above: Performed By: #### C BCA, PINR, 77950-9, 10679-4, BMP, 76471-6, 7-1 #### [facility] ([id number]) [address], [address] [place] [address] Potassium [Moles/Vol] 4.0 mmol/L Normal 3.5-5.0 [facility] Comment on above: Performed By: #### C BCA, PINR, 37297-0, 32299-1, BMP, 90005-9, 2777-1 #### [facility] ([id number]) [address], [facility] [address] [place] [address] Sodium [Moles/Vol] 140 mmol/L Normal 134-146 [facility] Comment on above: Performed By: #### C BCA, PINR, 50371-6, 07817-2, BMP, 19413-1, 2777-1 #### [facility] ([id number]) [address], [address] [place] [address] Urea nitrogen [Mass/Vol] 11 mg/dL Normal 5-27 [facility] Comment on above: Performed By: #### C BCA, PINR, 40485-9, 80360-7, BMP, 17179-5, 2777-1 #### [facility] ([id number]) [address], [address] [place] [address] CBC AND AUTO DIFFon 07-21-19 Erythrocyte distribution width (RBC) [Ratio] 14.7 % Normal 11.5-15.0 [facility] Comment on above: Performed By: #### C BCA, PINR, 68024-1, 45355-6, BMP, 62373-5, 2776-1 #### [facility] ([id number]) [address], [address] [place] [address] Hematocrit (Bld) [Volume fraction] 42.5 % Normal 39-49 [facility] Comment on above: Performed By: #### C BCA, PINR, 78397-0, 78085-7, BMP, 69767-1, 2776-1 #### [facility] ([id number]) [address], [address] [place] [address] Hemoglobin (Bld) [Mass/Vol] 14.2 g/dL Normal 13.0-17.0 [facility] Comment on above: Performed By: #### C BCA, PINR, 96150-5, 45810-0, BMP, 20809-9, 2777-1 #### [facility] ([id number]) [address], [address] [place] [address] Lymphocytes (Bld) [#/Vol] 0.8 10*3/uL Low 1.0-3.5 [facility] Comment on above: Performed By: #### C BCA, PINR, 01918-4, 67408-3, BMP, 39832-7, 2776- #### [facility] ([id number]) [address] [address] [place] [address] Lymphocytes/100 WBC (Bld) 5.0 % Normal [facility] Comment on above: Performed By: #### C BCA, PINR, 56884-9, 97284-4, BMP, 80206-0, 2776- #### [facility] ([id number]) [address], [address] [address] MCH (RBC) [Entitic mass] 31.3 pg Normal 27-34 [facility] Comment on above: Performed By: #### C BCA, PINR, 70923-7, 28420-3, BMP, 24206-1, 2776- #### [facility] ([id number]) [address], [facility] [address] [place] [address] MCHC (RBC) [Mass/Vol] 33.3 g/dL Normal 32-36 [facility] Comment on above: Performed By: #### C BCA, PINR, 28113-3, 39306-3, BMP, 62589-5, 2776- #### [facility] ([id number]) [address] [address] MCV (RBC) [Entitic vol] 94 fL Normal 80-100 [facility] Comment on above: Performed By: #### C BCA, PINR, 78787-0, 03057-4, BMP, 23018-5, 2776-1 #### [facility] ([id number]) [address] [address] Monocytes (Bld) [#/Vol] 2.0 10*3/uL High 0-0.9 [facility] Comment on above: Performed By: #### C BCA, PINR, 25446-6, 22374-7, BMP, 16260-3, 2776-1 #### [facility] ([id number]) [address] [place] [address] Monocytes/100 WBC (Bld) 12.0 % Normal [facility] Comment on above: Performed By: #### C BCA, PINR, 67325-3, 17809-6, BMP, 92648-3, 2776-1 #### [facility] ([id number]) [address] [place] [address] Neutrophils (Bld) [#/Vol] 13.8 10*3/uL High 1.5-6.6 [facility] Comment on above: Performed By: #### C BCA, PINR, 90333-0, 25178-5, BMP, 44381-3, 2776-1 #### [facility] ([id number]) [address] [place] [address] Platelet mean volume (Bld) [Entitic vol] 8.6 fL Normal 7-12 [facility] Comment on above: Performed By: #### C BCA, PINR, 60029-7, 11342-6, BMP, 18910-4, 2776-1 #### [facility] ([id number]) [address], [address] [place] [address] Platelets (Bld) [#/Vol] 212 10*3/uL Normal 150-450 [facility] Comment on above: Performed By: #### C BCA, PINR, 72189-6, 43375-3, BMP, 58005-2, 2776-1 #### [facility] ([id number]) [address], [address] [place] [address] RBC COUNT 4.53 X10E12/L Normal 4.10-5.70 [facility] Comment on above: Performed By: #### C BCA, PINR, 12283-8, 07424-8, BMP, 32430-0, 7-1 #### [facility] ([id number]) [address] [place] [address] RBC morphology finding Nom (Bld) NORMAL Normal [facility] Comment on above: Performed By: #### C BCA, PINR, 33613-3, 13014-7, BMP, 56811-8, 2776-1 #### [facility] ([id number]) [address], [address] [place] [address] SEG NEUTROPHIL 83.0 % Normal [facility] Comment on above: Performed By: #### C BCA, PINR, 49205-8, 61931-3, BMP, 82705-1, 2776-1 #### [facility] ([id number]) [address] [place] [address] WBC (Bld) [#/Vol] 16.6 10*3/uL High 4.0-11.0 [facility] Comment on above: Performed By: #### C BCA, PINR, 15679-3, 05485-4, BMP, 21994-7, 2776-1 #### [facility] ([id number]) [address], [address] [place] [address] MAGNESIUMon 07-21-2023 Magnesium [Mass/Vol] 1.9 mg/dL Normal 1.8-2.6 [facility] Comment on above: Performed By: #### C BCA, PINR, 10753-1, 99372-2, BMP, 80371-6, 2776-1 #### [facility] ([id number]) [address], [address] [place] [address] PHOSPHORUSon 07-21-2023 Phosphate [Mass/Vol] 1.8 mg/dL Low 2.4-4.9 [facility] Comment on above: Performed By: #### C BCA, PINR, 91754-6, 27870-8, BMP, 44886-3, 2777-1 #### [facility] ([id number]) [address] [place] [address] BASIC METABOLIC PANLon 07-19 Anion gap [Moles/Vol] 9 mmol/L Normal 5-15 [facility] Comment on above: Performed By: #### C BCA, PINR, 57884-6, 09619-5, BMP, 94367-4, 7-1 #### [facility] ([id number]) [address], [address] [place] [address] Calcium [Mass/Vol] 8.8 mg/dL Normal 8.5-10.5 [facility] Comment on above: Performed By: #### C BCA, PINR, 60908-2, 65542-0, BMP, 27300-7, 2776-1 #### [facility] ([id number]) [address], [address] [place] [address] Chloride [Moles/Vol] 104 mmol/L Normal 98-109 [facility] Comment on above: Performed By: #### C BCA, PINR, 63062-0, 47822-3, BMP, 67179-5, 2776-1 #### [facility] ([id number]) [address], [address] [place] [address] CO2 [Moles/Vol] 26 mmol/L Normal 22-32 [facility] Comment on above: Performed By: #### C BCA, PINR, 95330-4, 58417-9, BMP, 11322-4, 2776-1 #### [facility] ([id number]) [address] [place] [address] Creatinine [Mass/Vol] 0.86 mg/dL Normal 0.60-1.30 [facility] Comment on above: Result Comment: METH OD TRACEABLE TO IDMS STANDARD Performed By: #### C BCA, PINR, 14517-4, 21301-8, BMP, 63138-8, 2776-1 #### [facility] ([id number]) [address] [place] [address] eGFR (CKD-EPI) NON-RACE DEPENDENT >90 Normal >59 [facility] Comment on above: Result Comment: Reported eGFR is based on the CKD-EPI 2020 equation that does not use a race coefficient. Performed By: #### C BCA, PINR, 66234-5, 37623-0, BMP, 24400-6, 2776-1 #### [facility] ([id number]) [address], [address] [place] [address] Glucose [Mass/Vol] 139 mg/dL High 65-99 [facility] Comment on above: Performed By: #### C BCA, PINR, 24366-0, 74086-1, BMP, 40515-6, 2776-1 #### [facility] ([id number]) [address], [address] [place] [address] Potassium [Moles/Vol] 3.7 mmol/L Normal 3.5-5.0 [facility] Comment on above: Performed By: #### C BCA, PINR, 77904-9, 86162-9, BMP, 15756-9, 2776-1 #### [facility] ([id number]) [address], [address] [place] [address] Sodium [Moles/Vol] 139 mmol/L Normal 134-146 [facility] Comment on above: Performed By: #### C BCA, PINR, 26754-7, 86070-2, BMP, 99901-6, 2776-1 #### [facility] ([id number]) [address], [address] [place] [address] Urea nitrogen [Mass/Vol] 13 mg/dL Normal 5-27 [facility] Comment on above: Performed By: #### C BCA, PINR, 19012-6, 35287-7, BMP, 01462-9, 7-1 #### [facility] ([id number]) [address], [address] [place] [address] CBC AND AUTO DIFFon 07-20-19 24 Band form neutrophils/100 WBC (Bld) 3.8 % Normal [facility] Comment on above: Performed By: #### C BCA, PINR, 94441-8, 33638-4, BMP, 54084-4, 2776-1 #### [facility] ([id number]) [address], [address] [address] Erythrocyte distribution width (RBC) [Ratio] 14.2 % Normal 11.5-15.0 [facility] Comment on above: Performed By: #### C BCA, PINR, 18254-5, 78770-6, BMP, 52682-7, 2776-1 #### [facility] ([id number]) [address], [facility] [address] [place] [address] Hematocrit (Bld) [Volume fraction] 47.6 % Normal 39-49 [facility] Comment on above: Performed By: #### C BCA, PINR, 33261-4, 72910-6, BMP, 07632-1, 2776-1 #### [facility] ([id number]) [address], [facility] [address] [place] [address] Hemoglobin (Bld) [Mass/Vol] 15.8 g/dL Normal 13.0-17.0 [facility] Comment on above: Performed By: #### C BCA, PINR, 27337-0, 27666-7, BMP, 74902-0, 2776-1 #### [facility] ([id number]) [address] [address] LYMPHOCYTE, ATYPICAL 1.0 % Normal [facility] Comment on above: Performed By: #### C BCA, PINR, 16293-3, 56597-2, BMP, 57731-5, 2776- #### [facility] ([id number]) [address], [address] [place] [address] Lymphocytes (Bld) [#/Vol] 1.3 10*3/uL Normal 1.0-3.5 [facility] Comment on above: Performed By: #### C BCA, PINR, 99402-2, 06278-3, BMP, 16836-6, 2776- #### [facility] ([id number]) [address] [place] [address] Lymphocytes/100 WBC (Bld) 5.7 % Normal [facility] Comment on above: Performed By: #### C BCA, PINR, 26095-1, 88248-0, BMP, 53870-1, 2776-04 #### [facility] ([id number]) [address] [place] [address] MCH (RBC) [Entitic mass] 31.0 pg Normal 27-34 [facility] Comment on above: Performed By: #### C BCA, PINR, 35903-8, 97600-4, BMP, 17971-2, 2776-04 #### [facility] ([id number]) [address] [place] [address] MCHC (RBC) [Mass/Vol] 33.1 g/dL Normal 32-36 [facility] Comment on above: Performed By: #### C BCA, PINR, 53850-7, 85578-7, BMP, 85929-6, 2776- #### [facility] ([id number]) [address], [address] [place] [address] MCV (RBC) [Entitic vol] 94 fL Normal 80-100 [facility] Comment on above: Performed By: #### C BCA, PINR, 44587-2, 89274-6, BMP, 30802-0, 7-1 #### [facility] ([id number]) [address], [address] [place] [address] Monocytes (Bld) [#/Vol] 2.5 10*3/uL High 0-0.9 [facility] Comment on above: Performed By: #### C BCA, PINR, 82860-3, 75839-9, BMP, 03283-5, 2776-1 #### [facility] ([id number]) [address], [address] [place] [address] Monocytes/100 WBC (Bld) 13.3 % Normal [facility] Comment on above: Performed By: #### C BCA, PINR, 85749-6, 56150-2, BMP, 23896-4, 2776-1 #### [facility] ([id number]) [address], [address] [place] [address] Neutrophils (Bld) [#/Vol] 14.9 10*3/uL High 1.5-6.6 [facility] Comment on above: Performed By: #### C BCA, PINR, 72074-3, 95523-0, BMP, 76012-1, 2776-1 #### [facility] ([id number]) [address], [address] [place] [address] Platelet mean volume (Bld) [Entitic vol] 8.7 fL Normal 7-12 [facility] Comment on above: Performed By: #### C BCA, PINR, 60823-6, 69605-5, BMP, 96387-4, 2776-1 #### [facility] ([id number]) [address], [address] [place] [address] Platelets (Bld) [#/Vol] 234 10*3/uL Normal 150-450 [facility] Comment on above: Performed By: #### C BCA, PINR, 46812-1, 41347-9, BMP, 31489-4, 2777-1 #### [facility] ([id number]) [address], [address] [place] [address] RBC COUNT 5.08 X10E12/L Normal 4.10-5.70 [facility] Comment on above: Performed By: #### C BCA, PINR, 32890-5, 76822-3, BMP, 08133-0, 7-1 #### [facility] ([id number]) [address], [address] [place] [address] RBC morphology finding Nom (Bld) NORMAL Normal [facility] Comment on above: Performed By: #### C BCA, PINR, 79770-3, 64590-2, BMP, 56275-2, 7-1 #### [facility] ([id number]) [address], [address] [place] [address] SEG NEUTROPHIL 76.2 % Normal [facility] Comment on above: Performed By: #### C BCA, PINR, 84975-5, 58431-4, BMP, 39517-8, 2776-1 #### [facility] ([id number]) [address], [address] [place] [address] WBC (Bld) [#/Vol] 18.7 10*3/uL High 4.0-11.0 [facility] Comment on above: Performed By: #### C BCA, PINR, 51134-9, 40230-4, BMP, 62737-8, 2777-1 #### [facility] ([id number]) [address], [address] [place] [address] MAGNESIUMon 07-20-2023 Magnesium [Mass/Vol] 2.0 mg/dL Normal 1.8-2.6 [facility] Comment on above: Performed By: #### 1 9123-9 #### [facility] ([id number]) [address], [address] [place] [address] Magnesium [Mass/Vol] 1.7 mg/dL Low 1.8-2.6 [facility] Comment on above: Performed By: #### C BCA, PINR, 02624-9, 21647-4, BMP, 59592-8, 2777-1 #### [facility] ([id number]) [address], [address] [place] [address] Natriuretic peptide B [Mass/ Vol]on 07-20-2023 Natriuretic peptide B (Bld) [Mass/Vol] 28 pg/mL Normal <100.0 [facility] Comment on above: Performed By: #### 3 0934-4 #### [facility] ([id number]) [address], [address] [place] [address] PHOSPHORUSon 07-20-2023 Phosphate [Mass/Vol] 2.7 mg/dL Normal 2.4-4.9 [facility] Comment on above: Performed By: #### C BCA, PINR, 74735-1, 75256-3, BMP, 38293-3, 2777-1 #### [facility] ([id number]) [address], [address] [place] [address] PROTIME AND INRon 07-20-2023 INR Coag (PPP) [Relative time] 1.1 {INR} Normal 0.8-1.1 [facility] Comment on above: Performed By: #### P INR #### [facility] ([id number]) [address], [address] [place] [address] PT Coag (PPP) [Time] 12.5 s Normal 9.8-13.2 [facility] Comment on above: Performed By: #### P INR #### [facility] ([id number]) [address], [address] [place] [address] INR Coag (PPP) [Relative time] 1.0 {INR} Normal 0.8-1.1 [facility] Comment on above: Performed By: #### C BCA, PINR, 36100-5, 86238-4, BMP, 05563-7, 2777-1 #### [facility] ([id number]) [address] [place] [address], [address] [place] [address] PT Coag (PPP) [Time] 12.0 s Normal 9.8-13.2 [facility] Comment on above: Performed By: #### C BCA, PINR, 84791-3, 66886-7, BMP, 99222-4, 2777-1 #### [facility] ([id number]) [address] [place] [address], [address] [place] [address] Surgical Pathologyon 024 Surgical Pathology Normal [facility] Comment on above: Result Comment: [facility] [address] [place] [address] Surgical Pathology Consultation Patient Name:CIPRIANO ARZATE:1960 (Age: 63)Gender:MTaken:4Reported:07/23/2023hysician(s):Evan Louis MD ([phone])Copy To: Rec. #:[id number]: #[id number] Final Pathologic Diagnosis Colon, sigmoid, partial resection: - Gross and microscopic evidence of perforated diverticulum with associated abscess formation - Diverticulitis and diverticulosis - Five benign lymph nodes (0/5) - Margins viable Report Electronically Signed Out nrd/07/23/2023Hillary Becker [place] [address], License number: [id number]. Clinical History Perforated diverticulitis. Gross Description Received [...] are identified measuring up to 0.7 cm. Database Technician sections are submitted as follows: A Margin 1. en face B Margin 2, en face C Abscess cavity D-E Diverticulum continuous to abscess cavity, bisected (black ink represents continuity) F Additional diverticulum, intact G Retroperitoneal exudate and adhesion H Five lymph nodes, intact (8, ss, [id number], m1) EFC, DD efc/07/21/2023SSI Microscopic Findings Microscopic examination performed. Specimen(s) Received Sigmoid colon resection Fee Codes(s): 1; 82934 TROPONIN Ion 07-20-2023 Troponin I.cardiac [Mass/Vol] 0.03 ng/mL Normal 0.00-0.04 [facility] Comment on above: Performed By: #### C BCA, PINR, 60879-4, 28265-0, BMP, 27106-0, 2777-1 #### [facility] ([id number]) [address], [address] [place] [address] aPTT Coag (PPP) [Time]on aPTT Coag (Bld) [Time] 31 s Normal 26-37 [facility] Comment on above: Performed By: #### C BCA, PINR, 22536-0, 20444-3, BMP, 97686-6, 2777-1 #### [facility] ([id number]) [address] [place] [address] CBC AUTO DIFFon 09-20-2022 BASO # 0.1 103/ul Normal 0.0-0.1 [facility] Comment on above: Performed By: #### C BC #### [facility] [address] [place] [address] Dr. Leta Antonio Basophils/100 WBC (Bld) 0.5 % Normal 0.2-2.0 [facility] Comment on above: Performed By: #### C BC #### [facility] [address] [place] [address] Dr. Leta Antonio EO # 0.0 103/ul Normal 0.0-0.7 [facility] Comment on above: Performed By: #### C BC #### [facility] [address] [place] [address] Dr. Leta Antonio Eosinophils/100 WBC (Bld) 0.1 % Critically low 0.9-7.0 [facility] Comment on above: Performed By: #### C BC #### [facility] [address] [place] [address] Dr. Leta Antonio Erythrocyte distribution width (RBC) [Ratio] 13.9 % Normal 11.0-15.0 [facility] Comment on above: Performed By: #### C BC #### [facility] [address] [place] [address] Dr. Leta Antonio Hematocrit (Bld) [Volume fraction] 49.5 % Normal 42.0-54.0 [facility] Comment on above: Performed By: #### C BC #### [facility] [address] [place] [address] Dr. Leta Antonio Hemoglobin (Bld) [Mass/Vol] 16.5 g/dL Normal 14.0-18.0 [facility] Comment on above: Performed By: #### C BC #### [facility] [address] [place] [address] Dr. Leta Antonio IG # 0.03 10e3/ul Normal 0.00-0.03 [facility] Comment on above: Performed By: #### C BC #### [facility] [address] [place] [address] Dr. Leta Antonio IG % 0.3 % Normal 0.0-0.5 [facility] Comment on above: Performed By: #### C BC #### [facility] [address] [place] [address] Dr. Leta Antonio LYMPH # 1.1 103/ul Critically low 1.2-3.8 [facility] Comment on above: Performed By: #### C BC #### [facility] [address] [place] [address] Dr. Leta Antonio Lymphocytes/100 WBC (Bld) 11.3 % Critically low 20.5-60.0 [facility] Comment on above: Performed By: #### C BC #### [facility] [address] [place] [address] Dr. Leta Antonio MANUAL DIFF REQ NO Normal [facility] Comment on above: Performed By: #### C BC #### [facility] [address] [place] [address] Dr. Leta Antonio MCH (RBC) [Entitic mass] 30.6 pg Normal 25.9-34.0 [facility] Comment on above: Performed By: #### C BC #### [facility] [address] [place] [address] Dr. Leta Antonio MCHC (RBC) [Mass/Vol] 33.3 g/dL Normal 29.9-35.2 [facility] Comment on above: Performed By: #### C BC #### [facility] [address] [place] [address] Dr. Leta Antonio MCV (RBC) [Entitic vol] 91.7 fL Normal 80.0-94.0 [facility] Comment on above: Performed By: #### C BC #### [facility] [address] [place] [address] Dr. Leta Antonio MONO # 1.3 103/ul Critically high 0.3-0.8 [facility] Comment on above: Performed By: #### C BC #### [facility] [address] [place] [address] Dr. Leta Antonio Monocytes/100 WBC (Bld) 13.2 % Critically high 1.7-12.0 [facility] Comment on above: Performed By: #### C BC #### [facility] [address] [place] [address] Dr. Leta Antonio NEUT # 7.4 103/ul Critically high 1.4-6.5 [facility] Comment on above: Performed By: #### C BC #### [facility] [address] [place] [address] Dr. Leta Antonio Neutrophils/100 WBC (Bld) 74.6 % Normal 43.0-75.0 [facility] Comment on above: Performed By: #### C BC #### [facility] [address] [place] [address] Dr. Leta Antonio Platelet mean volume (Bld) [Entitic vol] 10.0 fL Normal 9.5-13.5 [facility] Comment on above: Performed By: #### C BC #### [facility] [address] [place] [address] Dr. Leta Antonio PLT 245 103/ul Normal 150-450 [facility] Comment on above: Performed By: #### C BC #### [facility] [address] [place] [address] Dr. Leta Antonio RBC 5.40 106/ul Normal 4.70-6.10 [facility] Comment on above: Performed By: #### C BC #### [facility] [address] [place] [address] Dr. Leta Antonio WBC 10.0 103/ul Normal 4.0-11.0 [facility] Comment on above: Performed By: #### C BC #### [facility] [address] [place] [address] ABD/PELV W CONon 09-21-19 CT ABD/PELV W CON EXAM: CT ABD/PELV [...] Hardik LUNDBERG Date: 2022-09-20 16:58 Normal [facility] LACTATE/LACTIC ACIDon 2022 Lactate [Moles/Vol] 1.1 mmol/L Normal 0.4-2.0 [facility] Comment on above: Performed By: #### L ACT #### [facility] [address] [place] [address] Dr. Leta Antonio LIPASEon 09-20-2022 Lipase [Catalytic activity/Vol] 161.0 U/L Normal 73.0-393.0 [facility] Comment on above: Performed By: #### C MP, LIPA, HSTROPN #### [facility] [address] [place] [address] [address] [address] Leta Antonio PROF 14(COMP METB)on 023 Albumin [Mass/Vol] 3.8 g/dL Normal 3.4-5.0 [facility] Comment on above: Performed By: #### C MP, LIPA, HSTROPN #### [facility] [address] [place] [address] Dr. Leta Antonio Albumin/Globulin [Mass ratio] 0.9 {ratio} Normal [facility] Comment on above: Performed By: #### C MP, LIPA, HSTROPN #### [facility] [address] [place] [address] Dr. Leta Antonio ALP [Catalytic activity/Vol] 81 U/L Normal 46-116 [facility] Comment on above: Performed By: #### C MP, LIPA, HSTROPN #### [facility] [address] [place] [address] Dr. Leta Antonio ALT [Catalytic activity/Vol] 30 U/L Normal 16-63 [facility] Comment on above: Performed By: #### C MP, LIPA, HSTROPN #### [facility] [address] [place] [address] Dr. Leta Antonio Anion gap [Moles/Vol] 14.2 mmol/L Normal [facility] Comment on above: Performed By: #### C MP, LIPA, HSTROPN #### [facility] [address] [place] [address] Dr. Leta Antonio AST [Catalytic activity/Vol] 20 U/L Normal 15-37 [facility] Comment on above: Performed By: #### C MP, LIPA, HSTROPN #### [facility] [address] [place] [address] Dr. Leta Antonio Bilirubin [Mass/Vol] 0.5 mg/dL Normal 0.2-1.0 [facility] Comment on above: Performed By: #### C MP, LIPA, HSTROPN #### [facility] [address] [place] [address] Dr. Leta Antonio Calcium [Mass/Vol] 10.1 mg/dL Normal 8.5-10.1 [facility] Comment on above: Performed By: #### C MP, LIPA, HSTROPN #### [facility] [address] [place] [address] Dr. Leta Antonio Chloride [Moles/Vol] 102 mmol/L Normal 98-107 [facility] Comment on above: Performed By: #### C MP, LIPA, HSTROPN #### [facility] [address] [address] [address] Leta Antonio CO2 [Moles/Vol] 28.5 mmol/L Normal 21.0-32.0 [facility] Comment on above: Performed By: #### C MP, LIPA, HSTROPN #### [facility] [address] [place] [address] Dr. Leta Antonio Creatinine [Mass/Vol] 1.20 mg/dL Normal 0.70-1.30 [facility] Comment on above: Performed By: #### C MP, LIPA, HSTROPN #### [facility] [address] [address] [address] Leta Antonio EGFR-AF KENYAN >60 Normal >=60 [facility] Comment on above: Performed By: #### C MP, LIPA, HSTROPN #### [facility] [address] [address] [address] Leta Antonio EGFR-NON AF KENYAN >60 Normal >=60 [facility] Comment on above: Performed By: #### C MP, LIPA, HSTROPN #### [facility] [address] [place] [address] Dr. Leta Antonio Globulin (S) [Mass/Vol] 4.1 g/dL Normal [facility] Comment on above: Performed By: #### C MP, LIPA, HSTROPN #### [facility] [address] [address] [address] Leta Antonio Glucose [Mass/Vol] 119 mg/dL Critically high 74-[address] [facility] Comment on above: Performed By: #### C MP, LIPA, HSTROPN #### [facility] [address] [address] [address] Leta Antonio Potassium [Moles/Vol] 3.7 mmol/L Normal 3.5-5.1 [facility] Comment on above: Performed By: #### C MP, LIPA, HSTROPN #### [facility] [address] [address] [address] Leta Antonio Protein [Mass/Vol] 7.9 g/dL Normal 6.4-8.2 [facility] Comment on above: Performed By: #### C MP, LIPA, HSTROPN #### [facility] [address] [place] [address] Dr. Leta Antonio Sodium [Moles/Vol] 141 mmol/L Normal 136-145 [facility] Comment on above: Performed By: #### C MP, LIPA, HSTROPN #### [facility] [address] [place] [address] Dr. Leta Antonio Urea nitrogen [Mass/Vol] 21.0 mg/dL Critically high 7.0-18.0 [facility] Comment on above: Performed By: #### C MP, LIPA, HSTROPN #### [facility] [address] [place] [address] Dr. Leta Antonio Urea nitrogen/Creatinin e [Mass ratio] 17.5 mg/mg Normal [facility] Comment on above: Performed By: #### C MP, LIPA, HSTROPN #### [facility] [address] [place] [address] Dr. Leta Antonio TROPONIN, HIGH SENSITIVITYon 09-20-2022 HSTROP 5.2 pg/mL Normal 4.0-76.1 [facility] Comment on above: Result Comment: CUT- OFF POINTS HAVE BEEN ESTABLISHED BASED ON THE FOURTH UNIVERSAL DEFINITIONS OF MYOCARDIAL INFARCTION. THE UPPER REFERENCE LIMIT (URL) OF TROPONIN, DEFINED THE 99TH PERCENTILE OF cTnI DISTRIBUTION IN A REFERENCE POPULATION, HAS BEEN CONFIRMED THE DECISION THRESHOLD FOR OR DIAGNOSIS. Performed By: #### C MP, LIPA, HSTROPN #### [facility] [address] [place] [address] Dr. Leta Antonio Vital Signs Date Time Vital Sign Value Performing Clinician Alexander randall 08-03-2024 14:19-0400 Body mass index (BMI) [Ratio] 25.6 kg/m2 Yissel Arevalo GUEST SERVICE MANAGER Work Phone: [facility] 08-03-2024 14:19-0400 Body temperature 98.49 [degF] Yissel Arevalo GUEST SERVICE MANAGER Work Phone: [facility] 08-03-2024 14:19-0400 Body weight 80.92 kg Yissel Arevalo GUEST SERVICE MANAGER Work Phone: [facility] 08-03-2024 14:19-0400 Diastolic blood pressure 84 mm[Hg] Yissel Arevalo GUEST SERVICE MANAGER Work Phone: [facility] 08-03-2024 14:19-0400 Heart rate 94 /min Yissel Arevalo GUEST SERVICE MANAGER Work Phone: [facility] 08-03-2024 14:19-0400 SaO2% (BldA) [Mass fraction] 96 % Yissel Arevalo GUEST SERVICE MANAGER Work Phone: [facility] 08-03-2024 14:19-0400 Systolic blood pressure 140 mm[Hg] Yissel Arevalo GUEST SERVICE MANAGER Work Phone: [facility] 05-03-2024 10:45-0500 Body height 177.8 cm Frida Kearneypatrick GUEST SERVICE MANAGER Work Phone: [facility] 05-03-2024 10:45-0500 Body mass index (BMI) [Ratio] 24.97 kg/m2 Frida Dorman GUEST SERVICE MANAGER Work Phone: [facility] 05-03-2024 10:45-0500 Body temperature 98.71 [degF] Frida Dorman GUEST SERVICE MANAGER Work Phone: [facility] 05-03-2024 10:45-0500 Body weight 78.93 kg Frida Dorman GUEST SERVICE MANAGER Work Phone: [facility] 05-03-2024 10:45-0500 Diastolic blood pressure 80 mm[Hg] Frida Dorman GUEST SERVICE MANAGER Work Phone: [facility] 05-03-2024 10:45-0500 Heart rate 110 /min Frida Kearneypatrick GUEST SERVICE MANAGER Work Phone: [facility] 05-03-2024 10:45-0500 Respiratory rate 18 /min Frida Kearneypatrick GUEST SERVICE MANAGER Work Phone: [facility] 05-03-2024 10:45-0500 SaO2% (BldA) [Mass fraction] 96 % Frida Kearneypatrick GUEST SERVICE MANAGER Work Phone: [facility] 05-03-2024 10:45-0500 Systolic blood pressure 122 mm[Hg] Frida Kearneypatrick GUEST SERVICE MANAGER Work Phone: [facility] 02-06-2024 11:19-0400 Body height 177.8 cm [facility] [employer] [facility] 02-06-2024 11:19-0400 Body mass index (BMI) [Ratio] 24.33 kg/m2 [facility] 02-06-2024 11:19-0400 Body temperature 97.81 [degF] [facility] 02-06-2024 11:19-0400 Body weight 76.9 kg [facility] 02-06-2024 11:19-0400 Diastolic blood pressure 83 mm[Hg] [facility] 02-06-2024 11:19-0400 Heart rate 109 /min [facility] 02-06-2024 11:19-0400 Respiratory rate 20 /min [facility] 02-06-2024 11:19-0400 SaO2% (BldA) [Mass fraction] 95 % [facility] 02-06-2024 11:19-0400 Systolic blood pressure 133 mm[Hg] [facility] 02-05-2024 14:35-0400 Body height 177.8 cm Frida Kearneypatrick GUEST SERVICE MANAGER Work Phone: [facility] 02-05-2024 14:35-0400 Body mass index (BMI) [Ratio] 24.34 kg/m2 Frida Dorman GUEST SERVICE MANAGER Work Phone: [facility] 02-05-2024 14:35-0400 Body temperature 99.1 [degF] Frida Kearneypatrick GUEST SERVICE MANAGER Work Phone: [facility] 02-05-2024 14:35-0400 Body weight 76.93 kg Frida Kearneypatrick GUEST SERVICE MANAGER Work Phone: [facility] 02-05-2024 14:35-0400 Diastolic blood pressure 72 mm[Hg] Frida Dorman GUEST SERVICE MANAGER Work Phone: [facility] 02-05-2024 14:35-0400 Heart rate 109 /min Frida Dorman GUEST SERVICE MANAGER Work Phone: [facility] 02-05-2024 14:35-0400 Respiratory rate 16 /min Frida Dorman GUEST SERVICE MANAGER Work Phone: [facility] 02-05-2024 14:35-0400 SaO2% (BldA) [Mass fraction] 96 % Frida Kearneypatrick GUEST SERVICE MANAGER Work Phone: [facility] 02-05-2024 14:35-0400 Systolic blood pressure 118 mm[Hg] Frida Baltazarzpatrick GUEST SERVICE MANAGER Work Phone: [facility] 01-27-2024 11:34-0400 Body height 177.8 cm Abdirashid Boss MD Work Phone: [facility] 01-27-2024 11:34-0400 Body mass index (BMI) [Ratio] 23.1 kg/m2 Abdirashid Boss MD Work Phone: [facility] 01-27-2024 11:34-0400 Body weight 73.03 kg Abdirashid Boss MD Work Phone: [facility] 12-26-2023 11:26-0400 Body height 177.8 cm [facility] 15 [facility] 12-26-2023 11:26-0400 Body mass index (BMI) [Ratio] 23.5 kg/m2 [facility] [address] [place] [address] 12-26-2023 11:26-0400 Body temperature 99.1 [degF] [address] [employer] [facility] 12-26-2023 11:26-0400 Body weight 74.[address] 12-26-2023 11:26-0400 Diastolic blood pressure 80 mm[Hg] [facility] 12-26-2023 11:26-0400 Heart rate 108 /min [facility] 12-26-2023 11:26-0400 Respiratory rate 16 /min [address] [employer] [facility] 12-26-2023 11:26-0400 SaO2% (BldA) [Mass fraction] 96 % [address] 12-26-2023 11:26-0400 Systolic blood pressure 124 mm[Hg] [address] 08-07-2023 12:38-0400 Body height 177.8 cm [facility] [employer] Work Phone: [facility] [employer] [facility] 08-07-2023 12:38-0400 Body mass index (BMI) [Ratio] 23.1 kg/m2 [facility] Work Phone: [facility] [employer] 08-07-2023 12:38-0400 Body weight 73.03 kg [facility] Work Phone: [facility] [employer] [facility] Encounters Encounter Date Encounter Type Care Provider Facility Start: 08-06-2024 End: 08-06-2024 Orders Only Yissel Arevalo GUEST SERVICE MANAGER Work Phone: [facility] Comment on above: Elevated PSA (Primar y Dx); Asymptomatic microscopic hematuria Start: 08-05-2024 End: 08-05-2024 Clinisync Result Encounter Yissel Arevalo GUEST SERVICE MANAGER Work Phone: [facility] Unsolicited Start: 08-05-2024 End: 08-05-2024 Clinisync Result Encounter Yissel Arevalo GUEST SERVICE MANAGER Work Phone: [facility] Unsolicited Start: 08-03-2024 End: 08-03-2024 ambulatory YISSEL JEDStephEMETERIOYamel Not Available Start: 08-03-2024 End: 08-03-2024 Bamboo flowsheet Yissel Jedstephebony GUEST SERVICE MANAGER Work Phone: [facility] Start: 08-03-2024 End: 08-03-2024 Bamboo flowsheet Yissel Jedstephebony GUEST SERVICE MANAGER Work Phone: [facility] Start: 08-03-2024 End: 08-03-2024 Patient encounter procedure Yissel Solomonebony GUEST SERVICE MANAGER Work Phone: [facility] Comment on above: Encounter for subseq uent annual wellness visit (AWV) in Medicare patient (Primary Dx); Colostomy status (CMS/HCC); Primary hypertension (CMS/HCC); Prostate cancer screening; History of prediabetes Start: 05-03-2024 End: 05-03-2024 Bamboo flowsheet Frida Dorman GUEST SERVICE MANAGER Work Phone: [facility] Start: 05-03-2024 End: 05-03-2024 Bamboo flowsheet Frida Dorman GUEST SERVICE MANAGER Work Phone: [facility] Start: 05-03-2024 End: 05-03-2024 ambulatory FRIDA DORMAN Not Available Start: 05-03-2024 End: 05-03-2024 Office outpatient visit 10 minutes Frida Dorman GUEST SERVICE MANAGER Work Phone: [facility] Comment on above: Upper respiratory tr act infection, unspecified type (Primary Dx); Viral URI; Acute non-recurrent frontal sinusitis Start: 04-06-2024 End: 04-06-2024 Orders Only Frida Dorman GUEST SERVICE MANAGER Work Phone: [facility] Comment on above: Primary hypertension (CMS/HCC) Start: 02-12-2024 End: 02-12-2024 Evaluation and management of inpatient VAL Elinor TIWARI [facility] Start: 02-12-2024 End: 02-12-2024 Evaluation and management of inpatient [facility] Start: 02-11-2024 Preoperative state Frida lockhart GUEST SERVICE MANAGER Work Phone: [facility] Start: 02-06-2024 End: 02-06-2024 ambulatory [facility] Start: 02-06-2024 End: 02-06-2024 Patient encounter procedure Metro Pat Provider 15 [facility] Comment on above: Preop testing (Prima ry Dx) Start: 02-06-2024 End: 02-06-2024 Patient encounter status [facility] Start: 02-05-2024 End: 02-05-2024 ambulatory FRIDA DORMAN Not Available Start: 02-05-2024 End: 02-05-2024 Office outpatient visit 15 minutes Frida Dorman GUEST SERVICE MANAGER Work Phone: [facility] Comment on above: Colostomy in place ( CMS/HCC) (Primary Dx); Chronic idiopathic constipation; Viral URI; Pre-operative clearance; Primary hypertension (CMS/HCC) Start: 02-05-2024 End: 02-05-2024 Preoperative state Frida Dorman GUEST SERVICE MANAGER Work Phone: [facility] Start: 02-05-2024 End: 02-05-2024 Bamboo flowsheet Frida Dorman GUEST SERVICE MANAGER Work Phone: [facility] Start: 02-05-2024 End: 02-05-2024 Bamboo flowsheet Frida Dorman GUEST SERVICE MANAGER Work Phone: [facility] Start: 01-27-2024 End: 01-27-2024 Office outpatient visit 40 minutes Abdirashid Boss MD Work Phone: [facility] Comment on above: Colostomy status (CM S-HCC) (Primary Dx); History of peritonitis; Parastomal hernia without obstruction or gangrene; Perforated bowel (CMS-HCC) Start: 01-27-2024 End: 01-27-2024 ambulatory [facility] Start: 01-10-2024 End: 01-10-2024 Evaluation and management of inpatient ALXE AGLE [facility] Start: 01-09-2024 End: 01-10-2024 Evaluation and management of inpatient [facility] Start: 12-26-2023 End: 12-26-2023 ambulatory [facility] Start: 12-26-2023 Encounter for other preprocedural examination CRUZ YOUSIF [facility] Start: 12-26-2023 End: 12-26-2023 Patient encounter procedure [facility] Pat Provider 15 [facility] Comment on above: Pre-op testing (Prim [place] Dx) Start: 12-26-2023 End: 12-26-2023 Patient [facility] status [facility] Start: 12-09-2023 ambulatory Gi X Orzech Facilit y:[facility] [place] Start: 11-26-2023 End: 11-26-2023 ambulatory [facility] Start: 11-25-2023 End: 11-25-2023 ambulatory SHAIKH HILARIA Not Available Start: 11-04-2023 End: 11-04-2023 Office outpatient visit 40 minutes Abdirashid Boss MD Work Phone: [facility] Comment on above: Colostomy status ( S-HCC) (Primary Dx); Perforated bowel ([facility]); Parastomal hernia without obstruction or gangrene; History of peritonitis Start: 11-04-2023 End: 11-04-2023 ambulatory [facility] Comment on above: Parastomal hernia wi thout obstruction or gangrene (Primary Dx) Start: 10-21-2023 End: 10-21-2023 ambulatory SHAIKH HILARIA Not Available Start: 10-16-2023 End: 10-16-2023 ambulatory EVAN LOUIS [facility] Start: 10-16-2023 End: 10-16-2023 Office outpatient visit 15 minutes Evan Louis MD Work Phone: [facility] Comment on above: Perforated bowel (CM S-HCC) (Primary Dx) Start: 10-10-2023 ambulatory Gi John Facility: [facility] Start: 09-25-2023 End: 09-25-2023 ambulatory SHAIKH HILARIA Not Available Start: 08-19-2023 ambulatory SHAIKH HILARIA Not Avail able Start: 08-07-2023 End: 08-07-2023 Office outpatient visit 15 minutes [facility] Work Phone: [facility] Comment on above: Diverticulitis (Prim [place] Dx) Start: 08-07-2023 End: 08-07-2023 ambulatory [facility] Start: 07-28-2023 Telephone encounter Suze Matthew CNA [facility] Start: 07-20-2023 ambulatory NO PCP NO PCP [facility] Start: 07-19-2023 End: 07-26-2023 Evaluation and management [facility] Start: 03-27-2023 End: 08-03-2024 Patient encounter procedure Frida Dorman GUEST SERVICE MANAGER Work Phone: [facility] Start: 09-20-2022 End: 09-20-[address] ROSA BREWER Facility:H1 Procedures Date Procedure Procedure Detail Performing Clinician Start: 08-05-2024 ALL CBC WITH AUTO DIFF Yissel Mickey GUEST SERVICE MANAGER Work Phone: Start: 02-06-2024 Ecg routine ecg w/le ast 12 lds trcg only w/o i&r Luis Angel Jara MD Work Phone: Start: 01-09-2024 Colonoscopy Frida brooke GUEST SERVICE MANAGER Work Phone: Start: 12-26-2023 Basic metabolic pane l calcium total Baljeet Dhaliwal MD Work Phone: Start: 11-23-2023 H/O: colostomy Colostomy status Abdirashid Bosio MD Work Phone: Start: 08-19-2023 H/O: colostomy Status post Bahena rtmann procedure Frida Dorman NP Work Phone: Start: 07-20-2023 Adult depression screening assessment Suze Matthew SPEECH AND LANGUAGE SPECIALIST Start: 04-12-2020 Colonoscopy Suzewen fournier SPEECH AND LANGUAGE SPECIALIST H/O: colostomy Colostomy status (CMS-HCC) Abdirashid Boss MD Work Phone: H/O: colostomy Colostomy status (CMS-HCC) Abdirashid Boss MD Work Phone: H/O: colostomy Colostomy status (CMS/HCC) Yissel Arevalo NP Work Phone: Plan of Treatment Date Care Activity Detail Author Start: 01-08-2034 Screening for malign ant neoplasm of colon [facility] Start: 01-08-2029 Screening for malign ant neoplasm of colon Colonoscopy [facility] Start: 08-08-2025 End: 08-08-2025 Patient encounter procedure 08/08/2025 4:30 PM EDT Office Visit [facility] [address] [place] [address] Yissel Arevalo, GREGORIO [address] [place] [address] [facility] Start: 08-03-2025 Medicare Annual Well ness (AWV) Medicare Annual Wellness (AWV) [facility] Start: 04-12-2025 Screening for malign ant neoplasm of colon Colonoscopy [facility] Start: 02-11-2025 Adult BMI Screening Adult BMI Screen ing [facility] Start: 02-11-2025 Tobacco Screening Tobacco Screening [facility] Start: 02-05-2025 Adult BMI Screening Adult BMI Screen ing [facility] Start: 02-05-2025 Tobacco Screening Tobacco Screening [facility] Start: 12-27-2024 Influenza vaccination Influenz a Vaccine (Season Ended) [facility] Start: 12-25-2024 Adult BMI Screening Adult BMI Screen ing [facility] Start: 12-25-2024 Tobacco Screening Tobacco Screening [facility] Start: 11-02-2024 End: 11-02-2024 Patient encounter procedure 11/02/2024 1:00 PM EDT Office Visit [facility] [address] [place] [address] Yissel Arevalo, GUEST SERVICE MANAGER [address] [place] [address] [facility] Start: 10-15-2024 Tobacco Screening Tobacco Screening [facility] Start: 09-05-2024 End: 08-06-2025 Bacteria identified in Urine by Culture Urine culture (clean catch) Microbiology Routine Asymptomatic microscopic hematuria Expected: 09/05/2024 (Approximate), Expires: 08/06/2025 [facility] Comment on above: Expected: 09/05/2024 (Approximate), Expires: 08/06/2025 Start: 09-05-2024 End: 08-06-2025 Urinalysis complete panel - Urine Urinalysis with reflex microscopic (clean catch) Lab Routine Asymptomatic microscopic hematuria Expected: 09/05/2024 (Approximate), Expires: 08/06/2025 [facility] Comment on above: Expected: 09/05/2024 (Approximate), Expires: 08/06/2025 Start: 08-06-2024 Adult BMI Screening Adult BMI Screen ing [facility] Start: 08-06-2024 End: 08-06-2025 PSA, total and free PSA, total and free Lab Routine Elevated PSA Expected: 08/06/2024 (Approximate), Expires: 08/06/2025 [facility] Work Phone: Comment on above: Expected: 08/06/2024 (Approximate), Expires: 08/06/2025 Start: 08-06-2024 Tobacco Screening Tobacco Screening [facility] Start: 08-03-2024 End: 08-03-2025 CBC W Auto Differential panel - Blood CBC and differential Lab Routine Primary hypertension (CMS/HCC) Expected: 08/03/2024 (Approximate), Expires: 08/03/2025 [facility] Work Phone: Comment on above: Expected: 08/03/2024 (Approximate), Expires: 08/03/2025 Start: 08-03-2024 End: 08-03-2025 Comprehensive metabolic 2000 panel - Serum or Plasma Comprehensive metabolic panel Lab Routine Primary hypertension (CMS/HCC) History of prediabetes Expected: 08/03/2024 (Approximate), Expires: 08/03/2025 [facility] Comment on above: Expected: 08/03/2024 (Approximate), Expires: 08/03/2025 Start: 08-03-2024 End: 08-03-2025 Hemoglobin A1c/Hemoglobin.total in Blood Hemoglobin A1c Lab Routine History of prediabetes Expected: 08/03/2024 (Approximate), Expires: 08/03/2025 [facility] Comment on above: Expected: 08/03/2024 (Approximate), Expires: 08/03/2025 Start: 08-03-2024 End: 08-03-2025 Microalbumin/Creatinine panel in random Urine Microalbumin / creatinine, urine ratio Lab Routine Primary hypertension (CMS/HCC) History of prediabetes Expected: 08/03/2024 (Approximate), Expires: 08/03/2025 [facility] Comment on above: Expected: 08/03/2024 (Approximate), Expires: 08/03/2025 Start: 08-03-2024 End: 08-03-2024 Patient encounter procedure 08/03/2024 2:00 PM EDT Office Visit [facility] [address] [place] [address] Frida Dorman NP [address] [place] [address] [facility] Start: 08-03-2024 End: 08-03-2025 Prostate specific Ag [Mass/volume] in Serum or Plasma PSA Lab Routine Prostate cancer screening Expected: 08/03/2024 (Approximate), Expires: 08/03/2025 [facility] Comment on above: Expected: 08/03/2024 (Approximate), Expires: 08/03/2025 Start: 08-03-2024 End: 08-03-2025 Urinalysis complete panel - Urine Urinalysis with reflex microscopic (clean catch) Lab Routine Primary hypertension (CMS/HCC) History of prediabetes Expected: 08/03/2024 (Approximate), Expires: 08/03/2025 [facility] Comment on above: Expected: 08/03/2024 (Approximate), Expires: 08/03/2025 Start: 07-25-2024 Adult BMI Screening Adult BMI Screen ing [facility] Start: 07-19-2024 Depression Screening Depression Scre ening [facility] Start: 07-19-2024 Tobacco Screening Tobacco Screening [facility] Start: 05-03-2024 End: 05-03-2024 Patient encounter procedure 05/03/2024 10:30 AM EST [facility] [address] [place] [phone] Frida Dorman, GUEST SERVICE MANAGER [address] [place] [address] [facility] Start: 03-29-2024 End: 03-29-2024 Patient encounter procedure 03/29/2024 3:00 PM EST Office Visit [facility] [address] [place] [address] Frida Dorman, GUEST SERVICE MANAGER [address] [place] [address] [facility] Start: 03-27-2024 Medicare Annual Well ness (AWV) Medicare Annual Wellness (AWV) [facility] Start: 02-12-2024 End: 02-12-2024 Admission to same day surgery center 02/12/2024 7:30 AM EDT - 02/12/2024 1:00 PM EDT Surgery [facility] [address] [place] [phone] Abdirashid Boss MD [address] [place] [address] DAVINCI TAKEDOWN COLOVESICAL FISTULA [19667 (CPT )] [facility] Surgery Comment on above: DAVINCI TAKEDOWN COL OVESICAL FISTULA [86428 (CPT )] Start: 02-12-2024 End: 02-12-2024 Closure enterostomy lg/small intestine CLOSURE COLOSTOMY COLOSTOMY STATUS 02/12/2024 7:30 AM EDT [facility] Start: 02-12-2024 End: 02-12-2024 Ileostomy/jejunostomy non-tube ILEOSTOMY COLOSTOMY STATUS 02/12/2024 7:30 AM EDT [facility] Start: 02-12-2024 Subsequent hospital visit by physician 02/12/2024 7:30 AM EDT Hospital Encounter [facility] Surgery [address] [place] [phone] Abdirashid Boss MD [address] [place] [address] [facility] Start: 02-12-2024 End: 02-12-2024 Unlisted laparoscopy px intestine xcp rectum DAVINCI TAKEDOWN COLOVESICAL FISTULA COLOSTOMY STATUS 02/12/2024 7:30 AM EDT [facility] Start: 01-27-2024 End: 01-27-2024 Patient encounter procedure 01/27/2024 11:30 AM EDT [facility] Visit [facility] [address] [place] [address] Abdirashid Boss MD [address] [place] [address] [facility] Start: 01-09-2024 End: 01-09-2024 Admission to same day surgery center 01/09/2024 12:30 PM EDT - 01/09/2024 1:30 PM EDT Surgery [facility] Endoscopy [address] [place] [phone] Abdirashid Boss MD [address] [place] [address] COLONOSCOPY DIAGNOSTIC / PER ANUS AND PER COLOSTOMY [73709 (CPT )] [facility] Endoscopy Comment on above: COLONOSCOPY DIAGNOST IC / PER ANUS AND PER COLOSTOMY [00902 (CPT )] Start: 01-09-2024 End: 01-09-2024 Colonoscopy flx dx w/collj spec when pfrmd COLONOSCOPY DIAGNOSTIC / SCREENING COLOSTOMY STATUS 01/09/2024 12:30 PM EDT [facility] Start: 01-09-2024 Subsequent hospital visit by physician 01/09/2024 12:30 PM EDT Hospital Encounter [facility] Endoscopy [address] [place] [phone] Abdirashid Boss MD [address] [place] [address] [facility] Endoscopy Start: 12-28-2023 Influenza vaccination [facility] Start: 12-26-2023 End: 12-26-2023 Patient encounter procedure 12/26/2023 10:45 AM EDT [facility] [address] [address] [facility] Start: 11-26-2023 End: 11-26-2023 Patient encounter procedure 11/26/2023 2:30 PM EDT Appointment [facility] Imaging [address] [place] [address] Abdirashid Boss MD [address] [place] [address] [facility] Start: 11-04-2023 End: 11-03-2024 CT Abdomen and Pelvis W contrast IV CT abdomen and pelvis with contrast Imaging Routine Parastomal hernia without obstruction or gangrene Expected: 11/04/2023, Expires: 11/03/2024 [facility] Work Phone: Comment on above: Expected: 11/04/2023 , Expires: 11/03/2024 Start: 11-04-2023 End: 11-04-2023 Patient encounter procedure 11/04/2023 1:30 PM EDT Office Visit [facility] [address] [place] [address] [place] [phone] Abdirashid Boss MD [address] [place] [address] [address] [place] [address] [facility] Start: 10-16-2023 End: 10-16-2023 Patient encounter procedure 10/16/2023 3:30 PM EDT Office Visit [facility] [address] [place] [address] [place] [phone] Evan Louis MD [address] [place] [address] [address] [place] [address] [facility] Start: 2023 Fall Risk Screening Fall Risk Screen ing [facility] Start: 2023 Pneumococcal Vaccine : 65+ Years (1 of 1 - PCV) Pneumococcal Vaccine: 65+ Years (1 of 1 - PCV) [facility] Start: 2008 Administration of varicella zoster vaccine Zoster (Shingles) Vaccine (1 of 2) [facility] Start: 1977 DTaP,Tdap and Td Vaccines (1 - Tdap) DTaP,Tdap and Td Vaccines (1 - Tdap) [facility] Start: 1958 Medicare Annual Well ness Visit Medicare Annual Wellness Visit [facility] Start: 1958 Screening for malign ant neoplasm of colon [facility] End: 11-03-2024 Creatinine includes GFR, serum Creatinine includes GFR, serum Lab Routine Parastomal hernia without obstruction or gangrene 1 Occurrences starting 11/04/2023 until 11/03/2024 [facility] Comment on above: 1 Occurrences starti ng 11/04/2023 until 11/03/2024 Payers Date Payer Category Payer Medicaid [id number] 1998 Medicare [id number] 1959 Medicaid [id number] 1959 Medicare [id number] 1958 Unknown [id number] 2.16.84 0.1.770297.3.579.2.593 1958 Unknown [id number] 2.16.8 40.1.850464.3.579.2.128 1958 Unknown [id number] 2.16.8 40.1.789833.3.579.2.1285 1958 Unknown [id number] 2.16.8 40.1.225841.3.579.2.1285 1958 Unknown [id number] 2.16.8 40.1.706104.3.579.2.1285 1958 Unknown [id number] 2.16.8 40.1.638280.3.579.2.1286 1958 Unknown [id number] 2.16.8 40.1.141974.3.579.2.1285 1958 Unknown [id number] 2.16.8 40.1.986070.3.579.2.128 1958 Unknown [id number] 2.16.8 40.1.562572.3.579.2.128 1958 Unknown [id number] 2.16.8 40.1.964545.3.579.2.1286 1958 Unknown [id number] 2.16.8 40.1.951286.3.579.2.1286 1958 Unknown [id number] 2.16.8 40.1.958933.3.579.2.1286 1958 Unknown [id number] 2.16.8 40.1.178503.3.579.2.128 1958 Unknown [id number] 2.16.8 40.1.556812.3.579.2.128 1958 Unknown [id number] 2.16.8 40.1.589028.3.579.2.128 1958 Unknown [id number] 2.16.8 40.1.726787.3.579.2.1285 1958 Unknown [id number] 2.16.8 40.1.080298.3.579.2.128 1958 Unknown [id number] 2.16.8 40.1.715867.3.579.2.128 1958 Unknown [id number] 2.16.84 0.1.201963.3.579.2.1259 1958 Unknown [id number] 2.16.84 0.1.360272.3.579.2.1259 1958 Unknown [id number] 2.16.84 0.1.645686.3.579.2.125 1958 Unknown [id number] 2.16.84 0.1.433714.3.579.2.125 1958 Unknown [id number] 2.16.84 0.1.518989.3.579.2.125 1958 Unknown [id number] 2.16.84 0.1.109841.3.579.2.1259 1958 Unknown [id number] 2.16.84 0.1.194386.3.579.2.1259 Social History Date Type Detail Facility Start: 03-31-2020 End: 08-19-2023 Tobacco smoking status NHIS Never smoked tobacco [facility] Start: 03-31-2020 End: 08-19-2023 Tobacco use and exposure Smokeless tobacco non-user [facility] Start: 11-25-2023 End: 08-03-2024 Alcoholic beverage intake Lifetime non-drinker (finding) [facility] Start: 03-27-2023 End: 08-03-2024 History of Social function [facility] Start: 03-27-2023 End: 08-03-2024 Humiliation, Afraid, Rape, and Kick questionnaire [HARK] [facility] Within the last year , have you been afraid of your partner or ex-partner? No [facility] Do you belong to any clubs or organizations such as restoration groups, unions, fraternal or athletic groups, or school groups? Yes [facility] Are you now , , , , never or living with a partner? [facility] How often to you hav e a drink containing alcohol? Never [facility] How many standard dr inks [...] Sex assigned at Not on file P [facility] Start: 10-16-2023 End: 02-22-2024 Alcoholic beverage intake Ex-drinker (finding) [facility] Start: 12-01-2014 Sex Male (finding) [facility] NEGATED: Highlighted rowStart: NINF History of tobacco use Passive smoker [facility] Goals Date Patient Goal Desired Activity /State Personal health goal Comment on above: Formatting of this n ote might be different from the original. Evaluation of progress towards goal: Clinical Notes 07-28-2023 to 08-03-2024 Yissel Arevalo NP - 08/03/2024 3:07 PM EDSHALINI CARPIO - 08/03/2024 2:00 PM Jan Arevalo NP [...] Current meds: amlodipine documented in this encounter [facility] 08-03-2024 Instructions Yissel Arevalo NP - 08/03/2024 2:00 PM EDT Please get labs completed Eye exam: please call to schedule documented in this encounter [facility] 05-03-2024 History of Presen t illness Narrative [...] have been ongoing. documented in this encounter [facility] 05-03-2024 Instructions Frida Dorman NP - 05/03/2024 [...] NEAREST EMERGENCY DEPARTMENT. documented in this encounter [facility] 02-11-2024 History of Presen t illness Narrative [...] results are received. documented in this encounter [facility] 02-06-2024 Instructions Chitra Mensah RN - 02/06/2024 10:45 AM EDT Your surgery/procedure is scheduled at [facility] on 02/12/2024 at 730 am Arrival Time 530 am [facility] Address: [address] [place] [address]. [place] [address] Park in [address] Parking lot located on [facility]. Report to the Entrance B. Check in at the information desk the surgery. The waiting room located on the second floor. If you have any questions prior to surgery, please call Pre-Admission Clinic at [phone] between 7:30 am and 4:30 pm Friday through Friday. If you have questions the morning of surgery, please call the Pre-op Department at [phone]. Notify your SURGEON if you develop any [...] weekly, hold 1 week prior to surgery: Mounjaro . Blood thinners: Please contact your prescribing [...] piercings ,hair extensions that contain metal, nail burmese, make-up, and contact lens. You may brush [...] RIGHTS AND RESPONSIBILITIES As a patient at [facility], you have the right to: Receive medical care and be informed of who is taking care of you Be treated with dignity and respect Have a family member/medical representative of choice and your physician notified of your admission Receive information and actively participate in decisions about your care and treatment Refuse care, treatment and services Decide who may provide your support and speak for you Access restorationism and spiritual services Participate in ethical issues [...] of hospital charges and payment methods Patient/patient medical representative responsibilities are to: Provide information about [...] in clean clothes. documented in this encounter [facility] 02-05-2024 Instructions Frida Dorman NP - 02/05/2024 [...] NEAREST EMERGENCY DEPARTMENT. documented in this encounter [facility] 01-27-2024 History of Presen t illness Narrative Assessment: 1. Colostomy status, here to discuss Colostomy reversal - Referral from Dr. Louis. 2. S/p sigmoidectomy on 07/20/[address] Louis. 3. Possible parastomal hernia 4. BMI 23 Cipriano P Huey is a 63 y.o.male who presents to [...] External hemorrhoids Hypertension Parastomal hernia Perforated bowel ([facility]) 07/19/2023 Peritonitis ([facility]) Umbilical hernia Past Surgical History: Procedure Laterality Date COLECTOMY SIGMOID N/A 07/20/2023 Performed by Evan Louis MD at [facility] COLONOSCOPY DIAGNOSTIC / PER ANUS AND PER COLOSTOMY N/A 01/09/2024 Performed by Abdirashid Boss MD at [facility] HERNIA REPAIR x3 Allergies: No Known [...] Medium Risk (03/27/2023) Received from [facility] Overall Financial Resource Strain (CARDIA) Difficulty of Paying Living Expenses: Somewhat hard Food Insecurity: No Food Insecurity (12/26/2023) Hunger Screening Food Insecurity - Worry: Never True Food Insecurity - Inability: Never True Transportation Needs: No Transportation Needs (07/20/2023) PRAPARE - Transportation Lack of Transportation (Medical): No Lack of Transportation (Non-Medical): No Physical Activity: Insufficiently Active (03/27/2023) Received from [facility] Exercise Vital Sign Days of Exercise per Week: 2 days Minutes of Exercise per Session: 20 min Stress: No Stress Concern Present (03/27/2023) [facility] [place] [facility] - Occupational Stress Questionnaire Feeling of Stress : Only a little Social Connections: Moderately Integrated (03/27/2023) Received from [facility] Social Connection and Isolation Panel [NHANES] Frequency of Communication with Friends and Family: Twice a week Frequency of Social Gatherings with Friends and Family: Twice a week Attends Hinduism Services: 1 to 4 times per year [...] was examined in the presence of a welfare interviewer This note was created with the assistance of a speech recognition program. While intending to generate a timely document that accurately reflects the content of the visit, no guarantee can be provided that every grammatical or spelling mistake has been or will be identified or corrected. Thank you for your understanding. Scribe Statement: Scribed for and in the presence of ABDIRASHID BOSS MD by Ivon Vera ([email or web address]). Ivon Vera 01/27/2024 11:40 AM Provider Statement I, Abdirashid Boss MD, personally performed the services described in the documentation as scribed by Ivon Vera in my presence, and it is both accurate and complete. Abdirashid Boss MD, MS, FACS Board Certified in the Colon & Rectal Surgery Board Certified in General Surgery Minimally Invasive Laparoscopic and Robotic Surgery [address] / [address] [place] [address] Office: [phone] [facility] Office: [phone] [email or web address] documented in this encounter [facility] 12-26-2023 Instructions Mayelin Foster RN - 12/26/2023 10:45 AM EDT Your surgery/procedure is scheduled at [facility] on 01/08 at 12:30 Arrival Time 10:30 [facility] Address: [address] [place] [address]. [place] [address] Park in [address] Parking lot located on [facility]. Report to the Entrance B. Check in at the information desk the surgery. The waiting room located on the second floor. If you have any questions prior to surgery, please call Pre-Admission Clinic at [phone] between 7:30 am and 4:30 pm Friday through Friday. If you have questions the morning of surgery, please call the Pre-op Department at [phone]. Notify your SURGEON if you develop any [...] weekly, hold 1 week prior to surgery: Efe . Blood thinners: Please contact your prescribing [...] piercings ,hair extensions that contain metal, nail burmese, make-up, and contact lens. You may brush [...] RIGHTS AND RESPONSIBILITIES As a patient at [facility], you have the right to: Receive medical care and be informed of who is taking care of you Be treated with dignity and respect Have a family member/medical representative of choice and your physician notified of your admission Receive information and actively participate in decisions about your care and treatment Refuse care, treatment and services Decide who may provide your support and speak for you Access restorationism and spiritual services Participate in ethical issues [...] of hospital charges and payment methods Patient/patient medical representative responsibilities are to: Provide information about [...] promptly as possible documented in this encounter [facility] 11-04-2023 History of Presen t illness Narrative [...] the stoma site. Was previously going to [facility] in [place]. He had a perforated diverticulitis for which [...] Diagnosis Date External hemorrhoids Hypertension Perforated bowel (CMS-HCC) 07/19/2023 Umbilical hernia Past Surgical History: Procedure Laterality Date COLECTOMY SIGMOID N/A 07/20/2023 Performed by Evan Louis MD at [facility] HERNIA REPAIR Xs 2 Allergies: No Known [...] Medium Risk (03/27/2023) Received from [facility] Overall Financial Resource Strain (CARDIA) Difficulty of Paying Living Expenses: Somewhat hard Food Insecurity: No Food Insecurity (07/20/2023) Hunger Screening Food Insecurity - Worry: Never True Food Insecurity - Inability: Never True Transportation Needs: No Transportation Needs (07/20/2023) PRAPARE - Transportation Lack of Transportation (Medical): No Lack of Transportation (Non-Medical): No Physical Activity: Insufficiently Active (03/27/2023) Received from [facility] Exercise Vital Sign Days of Exercise per Week: 2 days Minutes of Exercise per Session: 20 min Stress: No Stress Concern Present (03/27/2023) [facility] - Occupational Stress Questionnaire Feeling of Stress : Only a little Social Connections: Moderately Integrated (03/27/2023) Received from [facility] Social Connection and Isolation Panel [NHANES] Frequency of Communication with Friends and Family: Twice a week Frequency of Social Gatherings with Friends and Family: Twice a week Attends Hinduism Services: 1 to 4 times per year [...] was examined in the presence of a welfare interviewer This note was created with the assistance of a speech recognition program. While intending to generate a timely document that accurately reflects the content of the visit, no guarantee can be provided that every grammatical or spelling mistake has been or will be identified or corrected. Thank you for your understanding. Scribe Statement: Scribed for and in the presence of ABDIRASHID BOSS MD by Ivon Vera (scribe). Ivon Vera 11/04/2023 10:52 AM Provider Statement I, Abdirashid Boss MD, personally performed the services described in the documentation as scribed by Ivon Vera in my presence, and it is both accurate and complete. Abdirashid Boss MD, MS, FACS Board Certified in the Colon & Rectal Surgery Board Certified in General Surgery Minimally Invasive Laparoscopic and Robotic Surgery [facility] [address] / [address] [facility] [address] Office: [phone] [facility] Office: [phone] [email or web address] documented in this encounter [facility] 10-16-2023 History of Presen t illness Narrative [...] A referral has been placed to Dr. Boss, colorectal surgery for evaluation of stoma takedown. Beatris Grullon, MS4 Images from the original note were [...] come in to assist. Evan Louis MD [facility] General Surgery Minimally Invasive Robotic Surgery [phone] Please feel free to call with questions at anytime. documented in this encounter [facility] 08-07-2023 History of Presen t illness Narrative [...] see for discussion of possible stoma takedown [facility] Maryjane SHEIKH [facility] General Surgery [address] [place] [address] MARCO A Yu 08/07/23 1302 documented in this encounter [facility] 07-28-2023 Miscellaneous Notes HOME NURSE ADALI CALLED IN TO NOTIFY US THAT SHE IS SEEING PATIENT FOR THE FIRST TIME TODAY. HE WAS ASKING ABOUT A POSSIBLE REFILL ON PAIN MEDICATION AND PATIENT IS COMPLAINING OF NUMBNESS IN HIS HANDS, MOSTLY AT NIGHT. WILL SEND MESSAGE TO DR. HOFF SINCE DR. LOUIS IS OUT. CALL HOME NURSE RENE BACK [phone] PER KAVYA: Can he take just Tylenol and Motrin, Needs to see pcp for hand SPOKE TO GUERO LÓPEZ, VERBALIZED UNDERSTANDING, SHE ALSO IS GOING TO SIZE PATIENT AND ORDER HIS OSTOMY SUPPLIES documented in this encounter [facility] 07-28-2023 Telephone encounter Note HOME NURSE ADALI CALLED IN TO NOTIFY US THAT SHE IS SEEING PATIENT FOR THE FIRST TIME TODAY. HE WAS ASKING ABOUT A POSSIBLE REFILL ON PAIN MEDICATION AND PATIENT IS COMPLAINING OF NUMBNESS IN HIS HANDS, MOSTLY AT NIGHT. WILL SEND MESSAGE TO DR. HOFF SINCE DR. LOUIS IS OUT. CALL HOME NURSE RENE BACK [phone] PER KAVYA: Can he take just Tylenol and Motrin, Needs to see pcp for hand SPOKE TO GUERO LÓPEZ, VERBALIZED UNDERSTANDING, SHE ALSO IS GOING TO SIZE PATIENT AND ORDER HIS OSTOMY SUPPLIES [facility] 07-28-2023 Miscellaneous Notes Patient called and left [...] call back. He did end up calling [id number], he said they are coming today. I called [id number] and they did confirm they will be out there today 4/1 in the afternoon to assist the patient. documented in this encounter [facility] 07-28-2023 Telephone encounter Note Patient called [...] call back. He did end up calling [id number], he said they are coming today. I called [id number] and they did confirm they will be out there today 4/ in the afternoon to assist the patient. [facility] Evaluation note Diagnosis Primary hypertension (CMS/HCC)- Primary [...] Pre-operative clearance Unspecified pre-operative examination Primary hypertension ([facility]/HCC) Unspecified essential hypertension documented in this encounter [facility] HealthcareEvaluation note* Diagnosis Primary hypertension (CMS/HCC)- Primary Unspecified essential hypertension Encounter for Medicare annual wellness exam Pain, dental History of prediabetes Primary hypertension ([facility]/HCC)- Primary Unspecified essential hypertension Perforation of sigmoid colon due to diverticulitis Status post Kathy procedure (/HCC) Colostomy in place ([facility]) Colostomy status Hospital discharge follow-up Other follow-up examination Primary hypertension ([facility]/HCC)- Primary Unspecified essential hypertension Colostomy in place ([facility]) Colostomy status Numbness and tingling in left hand Disturbance of skin sensation Cystitis- Primary Unspecified cystitis Chronic idiopathic constipation Unspecified constipation Primary hypertension (CMS/HCC)- Primary Unspecified essential hypertension Colostomy in place (/HCC) Colostomy status Colostomy in place (/[facility])- Primary Colostomy status Chronic idiopathic constipation Unspecified constipation Viral URI Acute upper respiratory infections of unspecified site Pre-operative clearance Unspecified pre-operative examination Primary hypertension ([facility]/HCC) Unspecified essential hypertension Primary hypertension ([facility]) Unspecified essential hypertension documented in this encounter [facility] HealthcareEvaluation note* Diagnosis Primary hypertension ([facility]/HCC)- Primary Unspecified essential hypertension Encounter for Medicare annual wellness exam Pain, dental History of prediabetes Primary hypertension ([facility]/HCC)- Primary Unspecified essential hypertension Perforation of sigmoid colon due to diverticulitis Status post Kathy procedure (/[facility]) Colostomy in place ([facility]) Colostomy status Hospital discharge follow-up Other follow-up examination Primary hypertension ([facility]/HCC)- Primary Unspecified essential hypertension Colostomy in place ([facility]) Colostomy status Numbness and tingling in left hand Disturbance of skin sensation Cystitis- Primary Unspecified cystitis Chronic idiopathic constipation Unspecified constipation Primary hypertension ([facility]/HCC)- Primary Unspecified essential hypertension Colostomy in place [...] non-recurrent frontal sinusitis documented in this encounter [facility] HealthcareEvaluation note* Diagnosis Perforated bowel (CMS-HCC)- Primary documented in this encounter [facility] System[facility] note* Diagnosis Parastomal hernia without obstruction or gangrene- Primary documented in this encounter [facility]* Diagnosis Colostomy status (CMS-HCC)- Primary Colostomy status Perforated bowel (CMS-HCC) Parastomal hernia without obstruction or gangrene History of peritonitis documented in this encounter [facility]* Diagnosis Diverticulitis- Primary Diverticulitis of colon (without mention of hemorrhage) documented in this encounter [facility]* Diagnosis Pre-op testing- Primary Unspecified pre-operative examination documented in this encounter [facility]* Diagnosis Preop testing- Primary Unspecified pre-operative examination documented in this encounter [facility] note* Diagnosis Colostomy status (CMS-HCC)- Primary Colostomy status History of peritonitis Parastomal hernia without obstruction or gangrene Perforated bowel (CMS-HCC) documented in this encounter [facility]* Diagnosis Primary hypertension (CMS/HCC)- [...] History of prediabetes documented in this encounter [facility] HealthcareEvaluation note* Diagnosis Primary hypertension ([facility]/HCC)- Primary Unspecified essential hypertension Encounter for Medicare annual wellness exam Pain, dental History of prediabetes Primary hypertension ([facility]/HCC)- Primary Unspecified essential hypertension Perforation of sigmoid colon due to diverticulitis Status post Kathy procedure (CMS/HCC) Colostomy in place ([facility]/HCC) Colostomy status Hospital discharge follow-up Other follow-up examination Primary hypertension (CMS/HCC)- Primary Unspecified essential hypertension Colostomy in place ([facility]/HCC) Colostomy status Numbness and tingling in left hand Disturbance of skin sensation Cystitis- Primary Unspecified cystitis Chronic idiopathic constipation Unspecified constipation Primary hypertension (CMS/HCC)- Primary Unspecified essential hypertension Colostomy in place (CMS/HCC) Colostomy status Colostomy in place ([facility]/HCC)- Primary Colostomy status Chronic idiopathic constipation Unspecified constipation Viral URI Acute upper respiratory infections of unspecified site Pre-operative clearance Unspecified pre-operative examination Primary hypertension (CMS/HCC) Unspecified essential hypertension Encounter for subsequent annual wellness visit (AWV) in Medicare patient- Primary Colostomy status ([facility]/HCC) Colostomy status Primary hypertension ([facility]/HCC) Unspecified essential hypertension Prostate cancer screening Special screening for malignant neoplasm of prostate History of prediabetes Elevated PSA- Primary Elevated prostate specific antigen (PSA) Asymptomatic microscopic hematuria documented in this encounter [facility] HealthcareInstructionsNot on filedocumented in this encounterPro[facility] SystemInstructionsNot on filedocumented in this encounterPro[facility] Neokinetics SystemInstructionsNot on filedocumented in this encounterProBethesda North HospitalRapp IT Up SystemInstructionsNot on filedocumented in this encounterProBethesda North HospitalRapp IT Up System InstructionsNot on filedocumented in this encounterProV[facility] Summary Purpose Family History No Family History Records FoundNo Family History Records FoundNo Family History Records FoundNo Family History Records FoundNo Family History Records Found Advance Directives Date Activated Date Inactivated Comments 07/20/2023 12:44 AM 07/27/2023 12:29 AM Date Activated Date Inactivated Comments 07/20/2023 12:44 AM 07/27/2023 12:29 AM Latest Code Status on File Code Status Date Activated Date Inactivated Comments Full Code 07/20/2023 12:44 AM 07/27/2023 12:29 AM Reason for Referral Specialty Diagnoses / Procedures Referred By Contac t Referred To Contact Radiology Diagnoses Parastomal hernia without obstruction or gangrene Procedures CT abdomen and pelvis with contrast Abdirashid Boss MD [address] [place] [address] Referral ID Status Reason Start Date Expiration Date V isits Requested Visits Authorized [id number] Pending Review 11/04/2023 11/03/2024 1 1 Specialty Diagnoses / Procedures Referred By Contac t Referred To Contact Diagnoses Preop testing Procedures ECG 12 lead Luis Angel Jara MD [address] [place] [address] Referral ID Status Reason Start Date Expiration Date V isits Requested Visits Authorized [id number] Pending Review 02/06/2024 02/05/2025 1 1 Additional Source Comments (unrecognized sect ion and content) No Status Records FoundNo Status Records FoundNo Status Records FoundNo Status Records FoundNo Status Records Found INFORMATION SOURCE (unrecogn ized section and content) DATE CREATED AUTHOR 10/04/2022 [facility] DATE CREATED AUTHOR AUTHOR'S ORGANIZ ATION 07/20/2023 [facility] DATE CREATED AUTHOR AUTHOR'S ORGANIZ ATION 10/11/2023 [facility] DATE CREATED AUTHOR AUTHOR'S ORGANIZ ATION 02/14/2024 [facility] DATE CREATED AUTHOR AUTHOR'S ORGANIZ ATION 08/05/2024 [facility] EPIC Care Teams (unrecognized sec tion and content) Senior Environmental Scientist Relationship Specialty Start Date End Date Varghese Del Cid MD [address] [place] [phone] PCP - General Family Medicine 01/21/24 Frida Dorman NP [address] [place] [address] Nurse Practitioner Family Medicine 01/21/24 Senior Environmental Scientist Relationship Specialty Start Date End Date Varghese Del Cid MD [address] [place] [phone] PCP - General Family Medicine 01/21/24 Frida Dorman NP [address] [place] [address] Nurse Practitioner Family Medicine 01/21/24 Senior Environmental Scientist Relationship Specialty Start Date End Date Varghese Del Cid MD [address] [place] [phone] PCP - General Family Medicine 01/21/24 Frida Dorman NP [address] [place] [address] Nurse Practitioner Family Medicine 01/21/24 Senior Environmental Scientist Relationship Specialty Start Date End Date Varghese Del Cid MD [address] [place] [phone] PCP - General Family Medicine 01/21/24 Frida Dorman NP [address] [place] [address] Nurse Practitioner Family Medicine 01/21/24 Senior Environmental Scientist Relationship Specialty Start Date End Date Varghese Del Cid MD [address] [place] [address] PCP - General Family Medicine 01/21/24 Frida Dorman NP [address] [place] [address] Nurse Practitioner Family Medicine 01/21/24 Senior Environmental Scientist Relationship Specialty Start Date End Date Varghese Del Cid MD [address] [place] [place] [address] PCP - General Family Medicine 07/21/23 Senior Environmental Scientist Relationship Specialty Start Date End Date Varghese Del Cid MD [address] [place] [address] PCP - General Family Medicine 07/21/23 Senior Environmental Scientist Relationship Specialty Start Date End Date Varghese Del Cid MD [address] [place] [facility] [place] [address] PCP - General Family Medicine 07/21/23 Senior Environmental Scientist Relationship Specialty Start Date End Date Varghese Del Cid MD [address] [place] [address] PCP - General Family Medicine 07/21/23 Senior Environmental Scientist Relationship Specialty Start Date End Date Varghese Del Cid MD [address] [place] [address] PCP - General Family Medicine 07/21/23 Senior Environmental Scientist Relationship Specialty Start Date End Date Varghese Del Cid MD PCP - General Family Medicine 07/21/23 Senior Environmental Scientist Relationship Specialty Start Date End Date Frida Dorman [employer] [address] [place] [address] PCP - General Nurse Practitioner 02/06/24 Senior Environmental Scientist Relationship Specialty Start Date End Date Shaikh Manrique MD [address] [place] [address] PCP - General Internal Medicine 01/06/24 02/05/24 Senior Environmental Scientist Relationship Specialty Start Date End Date Varghese Del Cid MD [address] [place] [address] PCP - General Family Medicine 01/21/24 Frida Dorman NP [address] [place] [address] Nurse Practitioner Family Medicine 01/21/24 Senior Environmental Scientist Relationship Specialty Start Date End Date Varghese Del Cid MD [address] [place] [address] PCP - General Family Medicine 01/21/24 Frida Dorman NP [address] [place] [address] Nurse Practitioner Family Medicine 01/21/24 Senior Environmental Scientist Relationship Specialty Start Date End Date Varghese Del Cid MD [address] [place] [address] PCP - General Family Medicine 01/21/24 Frida Dorman NP [address] [place] [address] Nurse Practitioner Family Medicine 01/21/24 Senior Environmental Scientist Relationship Specialty Start Date End Date Varghese Del Cid MD [address] [place] [id number] PCP - General Family Medicine 01/21/24 Frida Dorman NP [address] [place] [address] Nurse Practitioner Family Medicine 01/21/24 Reason for [...] BE BASED ON THE PRIMARY CLINICAL RECORDS. [employer] [facility]. provides no warranty or guarantee of the accuracy or completeness of information in this document.
[2024-08-10 04:08] LABS: PSA, Free 1.32 ng/mL
== END 2024-08-09 10:04 | disposition home or self-care (01) ==
LOC: LAB 10:04
PROVIDERS: PCP Nurse Practitioner; Visit Provider Nurse Practitioner
DX: R31.21 Asymptomatic microscopic hematuria (principal); R97.20 Elevated prostate specific antigen [PSA]
CPT/HCPCS: 36415; 84153; 84154

== ENCOUNTER 2024-10-04 13:46 | Outpatient (OUT) | payer MEDICARE, MEDICAID, SELFPAY ==
--- OUTSIDE RECORDS SUMMARY | 2024-10-04 13:50 | XMS_ITS | Clinical Summary ---
Author Organization [facility] Address [address] [place] [address] Care Team Providers Care Gluing Machine Operator Automatic Name Role Phone Pio Isaacs MD Unavailable [phone] Social History Tobacco Use Types Packs/Day Years Used Date Smoking Tobacco: Never Assessed Sex and Gender Information Value Date Recorded Sex Assigned at Not on file Legal Sex Male 2:42 PM EDT Gender Identity Not on file Sexual Orientation Not on file Plan of Treatment Upcoming Encounters Date Type Department Care Team (Late st Contact Info) Description 10/20/2024 3:00 PM EDT Office Visit Radiation Oncology [address] [place] [address] Kwasi Rivera MD [address] [place] [address] For treatment of Prostate Cancer Health Maintenance Due Date Last Done Comments Anxiety Screening 1976 Depression Screening 1976 Hepatitis C Screening 1976 DTaP,Tdap,Td Vaccine (1 - Tdap) [address] Colonography 2003 Cologuard (FIT-DNA) 2003 Colonoscopy 2003 Colorectal Cancer Screening 2003 Diabetes Screening 2003 Fecal Occult Blood 2003 Prostate Cancer Screening Discussion 2003 Sigmoidoscopy 2003 Pneumococcal Vaccine: 50+ (1 of 1 - PCV) 2008 Shingrix Vaccine (1 of 2) 2008 Covid-19 Vaccine (1 - season) 2023 Advance Directive Discussion 04/28/2024 Influenza Vaccine (Season Ended) 2024 RSV Vaccine (1 - 1-dose 75+ series) 2033 Insurance MEDICARE Member Subscriber Plan / Payer (Ef fective 2024-Present) Name:Olu rAzate Member ID:[id number] Relation to Subscriber:Self Name:Olu Arzate Subscriber ID:[id number] Payer ID:Not on file Group ID:Not on file Type:Medicare Address: [address] [place] [id number] MEDICAID [place] Care Teams Gluing Machine Operator Automatic Relationship Specialty Start Date End Date Pio Isaacs MD [address] [place] [address] Urology 10/01/24
--- OUTSIDE RECORDS SUMMARY | 2024-10-04 13:50 | XMS_ITS | Clinical Summary ---
Author Organization [employer] [facility] tem Address [id number] [address] [place] [address] Care Team Providers Care Tools And Parts Attendant Name Role Phone Netta Doramn DINKEY LOCOMOTIVE ENGINEER-UNIVERSITY CONTROLLER Primary Care Pr ovider Allergies No known active allergies Medications amLODIPine (NORVASC) 10 mg tabletIndicatio ns:hypertension Take 1 tablet (10 mg total) by mouth in the morning. Indications: high blood pressure. Active acetaminophen (TYLENOL EXTRA STRENGTH) 500 mg tabletIndicatio ns:fever,pain Take 2 tablets (1,000 mg total) by mouth every 6 (six) hours Indications: fever, pain. 30 tablet 07/27/2023 Active fluticasone propionate (FLONASE) 50 mcg/actuation nasal spray 1-2 sprays in the morning. 02/05/2024 Active Active Problems Problem Noted Date Diagnosed Date Colostomy status 11/23/2023 Parastomal hernia without obstruction or gangren e 11/23/2023 History of peritonitis 11/23/2023 Perforated bowel 07/19/2023 Immunizations No known immunizations Family History Medical History Relation Name Comments Blood Clots Father Heart disease Father Cancer Mother Anesthesia problems Neg Hx Relation Name Status Comments Brother Alive Father Mother Social History Tobacco Use Types Packs/Day Years Used Date Smoking Tobacco: Never Smokeless Tobacco: Never Alcohol Use Standard Drinks/Week Comments Not Currently 0 (1 standard drink = 0.6 oz pur e alcohol) [facility] Utilities Answer Date Recorded In the past 12 months has th e electric, gas, oil, or water company threatened to shut off services in your home? No 07/20/2023 AUDIT-C Answer Date Recorded Q1: How often do you have a drink containing alcohol? Never 07/20/2023 Q2: How many drinks containi ng alcohol do you have on a typical day when you are drinking? Patient does not drink Q3: How often do you have si x or more drinks on one occasion? Never 07/20/2023 PHQ-2 Answer Date Recorded Total Score 1 07/20/2023 PRAPARE - Transportation Answer Date Re corded In the past 12 months, has l ack of transportation kept you from medical appointments or from getting medications? No 06/27 In the past 12 months, has l ack of transportation kept you from meetings, work, or from getting things needed for daily living? No 07/20/2023 Housing Instability Answer Date Recorde d Are you worried or concerned that in the next two months you may not have stable housing that you own, rent or stay in as a part of a household? No 07/20/2023 Childcare Answer Date Recorded Childcare Unknown 03/20/2020 Employment Answer Date Recorded Employment Unknown 03/20/2020 Hunger Screening Answer Date Recorded Within the past 12 months we worried whether our food would run out before we got money to buy more. Sometimes True 024 Within the past 12 months th e food we bought just didn't last and we didn't have money to get more. Sometimes True 02/06/2024 Purpose - Life Answer Date Recorded Purpose and direction in life Unknown Sex and Gender Information Value Date Recorded Sex Assigned at Not on file Legal Sex Male 11:33 AM EDT Gender Identity Not on file Sexual Orientation Not on file Last Filed Vital Signs Vital Sign Reading Time Taken Comments Blood Pressure 128/88 02/12/2024 6:00 AM EDT Pulse 101 02/12/2024 6:00 AM EDT Temperature 36.2 C (97.2 F) 02/12/2024 6:00 AM EDT Respiratory Rate 20 02/12/2024 6:00 AM EDT Oxygen Saturation 96% 02/12/2024 6:00 AM EDT Inhaled Oxygen Concentration - - Weight 76.9 kg (169 lb 8.5 oz) 02/12/2024 6:00 A M EDT Height 177.8 cm (5' 10 ) 02/06/2024 11:19 AM EDT Body Mass Index 24.33 02/06/2024 11:19 AM EDT Plan of Treatment Health Maintenance Due Date Last Done Comments DTaP,Tdap and Td Vaccines (1 - Tdap) 1977 Zoster (Shingles) Vaccine (1 of 2) 2008 Fall Risk Screening 2023 Depression Screening 07/19/2024 07/20/2023 Influenza Vaccine 12/27/2024 Adult BMI Screening 02/11/2025 02/12/2024 Tobacco Screening 02/21/2025 02/22/2024 Colonoscopy 01/08/2029 01/09/2024, 01/09/2024 Goals Goal Patient Goal Type Associated Problems Recent Progress Patient-Stated? Author Return to home with home care General Yes Tyesha Topete, RN Note: Evaluation of progress towards goal: Medical Devices Not on file Procedures Procedure Name Priority Date/Time Associated Diagnosis Comments PROVATION COLONOSCOPY Routine 01/09/2024 10:45 AM EDT from Last 3 Months or Most Recently Relevant to Health Maintenance Results * Colonoscopy Report (01/09/2024 10:45 AM EDT) Narrative SYSTEMGENERATED, DOCUMENTATION - 01/09/2024 10:45 AM EDT This order has been auto-finalized for image and report archival in PACs. *For full report details, please reach out to your physician. This image is visible to you in MyChart.* us Abdirashid Boss MD IMG OR IMG ORDERABLES Final Resu lt from Last 3 Months or Most Recently Relevant to Health Maintenance Insurance MEDICARE MEDICAID [place] Advance Directives * Full Code (Latest Code Status on File) Date Activated Date Inactivated Comments 07/20/2023 12:44 AM 07/27/2023 12:29 AM Care Teams Tools And Parts Attendant Relationship Specialty Start Date End Date Netta Dorman, DINKEY LOCOMOTIVE ENGINEER-UNIVERSITY CONTROLLER [address] [place] [address] PCP - General Nurse Practitioner 02/06/24
--- OUTSIDE RECORDS SUMMARY | 2024-10-04 13:50 | XMS_ITS | Encounter Summary ---
Author Organization [facility] Address [address] [place] [address] Care Team Providers Care Chemical Educator Name Role Phone Shaikh DANIEL Manrique Primary Care Provider [phone] Shaikh DANIEL Manrique Primary Care Provider [phone] Varghese Carrizales MD Primary Care Provider [phone] Netta Dorman NP Unavailable [phone] Reason for Visit * Reason Comments Med Refill Encounter Details Date Type Department Care Team (Late st Contact Info) Description 08/11/2023 Refill [facility] [address] [place] [address] Shaikh Manrique MD [address] [place] [id number] Social History Tobacco Use Types Packs/Day Years Used Date Smoking Tobacco: Never Smokeless Tobacco: Never Alcohol Use Standard Drinks/Week Comments Never 0 (1 standard drink = 0.6 oz pur e alcohol) caffeine: none Humiliation, Afraid, Rape, and Kick questionnair e Answer Date Recorded Within the last year, have y ou been afraid of your partner or ex-partner? No 03/27/2023 Within the last year, have y ou been humiliated or emotionally abused in other ways by your partner or ex-partner? No Within the last year, have y ou been kicked, hit, slapped, or otherwise physically hurt by your partner or ex-partner? No 03/27/2023 Within the last year, have y ou been raped or forced to have any kind of sexual activity by your partner or ex-partner? No 03/27/2023 Social Connection and Isolation Panel [NHANES] A nswer Date Recorded In a typical week, how many times do you talk on the phone with family, friends, or neighbors? Twice a week 03/27/20 How often do you get togethe r with friends or relatives? Twice a week 03/27/2023 How often do you attend chur ch or sabianist services? 1 to 4 times per year 03/27/2023 Do you belong to any clubs o r organizations such as confucianist groups, unions, fraternal or athletic groups, or school groups? Yes 03/27/2023 How often do you attend meet ings of the clubs or organizations you belong to? 1 to 4 times per year 03/27/2023 Are you , , di vorced, , never , or living with a partner? 03/27/2023 AUDIT-C Answer Date Recorded Q1: How often do you have a drink containing alcohol? Never 03/27/2023 Q2: How many drinks containi ng alcohol do you have on a typical day when you are drinking? Patient does not drink Q3: How often do you have si x or more drinks on one occasion? Never 03/27/2023 Overall Financial Resource Strain (CARDIA) Answe r Date Recorded How hard is it for you to pa y for the very basics like food, housing, medical care, and heating? Somewhat hard 03/27/2023 PHQ-2 Answer Date Recorded Patient Health Questionnaire-2 Score 0 03/27/2023 [facility] - Occupational Stress Questionnaire Answer Date Recorded Do you feel stress - tense, restless, nervous, or anxious, or unable to sleep at night because your mind is troubled all the time - these days? Only a little 03/27/2023 Exercise Vital Sign Answer Date Recorde d On average, how many days pe r week do you engage in moderate to strenuous exercise (like a brisk walk)? 2 days 03/27/2023 On average, how many minutes do you engage in exercise at this level? 20 min 03/27/2023 Hunger Vital Sign Answer Date Recorded Within the past 12 months, y ou worried that your food would run out before you got the money to buy more. Never true 03/27/20 23 Within the past 12 months, t he food you bought just didn't last and you didn't have money to get more. Never true 03/27/2023 PRAPARE - Transportation Answer Date Re corded In the past 12 months, has l ack of transportation kept you from medical appointments or from getting medications? No 02/28 In the past 12 months, has l ack of transportation kept you from meetings, work, or from getting things needed for daily living? No 03/27/2023 Housing Stability Vital Sign Answer Juan David e Recorded In the last 12 months, was t here a time when you were not able to pay the mortgage or rent on time? No 03/27/2023 Number of Places Lived in the Last Year Not on f ile 03/27/2023 In the last 12 months, was t here a time when you did not have a steady place to sleep or slept in a [facility] (including now)? No 03/27/2023 Sex and Gender Information Value Date Recorded Sex Assigned at Not on file Legal Sex Male 8:26 PM EDT Gender Identity Not on file Sexual Orientation Not on file documented as of this encounter Plan of Treatment Upcoming Encounters Date Type Department Care Team (Late st Contact Info) Description 11/02/2024 1:00 PM EDT Office Visit [facility] [address] [place] [phone] Yissel Arevalo NP [address] [place] [phone] 08/08/2025 4:30 PM EDT Office Visit [facility] [address] [place] [phone] Yissel Arevalo NP [address] [place] [phone] documented as of this encounter Visit Diagnoses Not on filedocumented in this encounter Care Teams Chemical Educator Relationship Specialty Start Date End Date Shaikh Manrique MD PCP - General Internal Medicine 10/25/22 08/18/23 Shaikh Manrique MD [address] [place] [phone] PCP - General Internal Medicine 08/19/23 01/20/24 Varghese Carrizales MD [address] [place] [phone] PCP - General Family Medicine 01/21/24 Netta Dorman NP [address] [place] [phone] Nurse Practitioner Family Medicine 01/21/24 documented as of this encounter
--- OUTSIDE RECORDS SUMMARY | 2024-10-04 13:50 | XMS_ITS | Clinical Summary ---
Author Organization [facility] Healthcare Address [address] [facility] [place] [address] Care Team Providers Care Music Composer Name Role Phone Varghese Carrizales MD Primary Care Provider [phone] Netta Dorman THERMOGRAPH OPERATOR Unavailable [phone] Allergies No known active allergies Medications amLODIPine (Norvasc) 10 MG tabletIndications :Primary hypertension (CMS/HCC) Take 1 tablet (10 mg) by mouth Daily 90 tablet 1 4 Active fluticasone (Flonase) 50 MCG/ACT nasal sprayIndications: Viral URI Administer 1-2 sprays into each nostril Daily Shake gently. Before first use, prime pump. After use, clean tip and replace cap. 16 g 2 5 05/03/19 26 Active Active Problems Problem Noted Date Diagnosed Date Adenocarcinoma of prostate 09/28/2024 Elevated PSA 08/06/2024 Asymptomatic microscopic hematuria 08/06/2024 Prostate cancer screening 08/03/2024 Encounter for subsequent [facility] wellness visit (AWV) in Medicare patient 08/03/2024 Assessment & Plan (08/03/2024 3:07 PM EDT): Reviewed Ht/Wt/BMI Recommend eye exam yearly Recommend dental exams twice a year Balance work/leisure activities Exercises is recommended most days of the week (appropriate as chronic conditions allow) Follow up yearly and prn Pre-operative clearance 02/11/2024 Assessment & Plan (02/11/2024 8:52 AM EDT): Is here today for presurgical clearance for Reversal of colovesical fistula. Is having presurgical labwork done tomorrow. Did not bring paperwork to today from surgeons office. Pt has history of HTN. Well controlled on Amlodipine. Will provide medical clearance once pre-surgical testing results are received. Parastomal hernia without obstruction or gangren e 11/23/2023 Cystitis 10/21/2023 Assessment & Plan (10/21/2023 1:28 PM EDT): Follow up of ED visit. Sec to Ecoli, treated with keflex. Patient reports mild pain over stoma site and wanted to make sure his UTI had resolved. UA in office - no indication of UTI. Chronic idiopathic constipation 10/21/2023 Assessment & Plan (10/21/2023 1:27 PM EDT): On senna. Works well for him Numbness and tingling in left hand 09/25/2023 Assessment & Plan (09/25/2023 3:38 PM EDT): Numbness/tingling in left hand. Ongoing for a month. Ulnar nerve distribution. Ordered EMG/NCV but patient refusing and would like to see if his symptoms improve on their own Perforation of sigmoid colon due to diverticulit is 08/19/2023 Assessment & Plan (08/19/2023 3:11 PM EDT): Admission for sigmoid diverticulitis with perforation - s/p colectomy and now has colostomy in place. Patient is still learning to cope and deal with Colostomy. He has home health in place to help him manage colostomy. Status post Kathy procedure 08/19/2023 Assessment & Plan (08/19/2023 3:12 PM EDT): S/p colectomy. Now has colostomy in place. Plan for reversal in two months. Colostomy in place 08/19/2023 Assessment & Plan (11/25/2023 2:06 PM EDT): S/p colectomy and now has colostomy in place. He will have to wait 3 months before he could have a reversal. Assessment & Plan (09/25/2023 3:31 PM EDT): S/p colectomy and now has colostomy in place. Has an appt with general surgery - to discuss reversal of colostomy. Assessment & Plan (08/19/2023 3:12 PM EDT): S/p colectomy and now has colostomy in place. Primary hypertension 03/27/2023 Assessment & Plan (08/03/2024 7:05 AM EDT): Please check blood pressure daily and record DASH diet Limit caffeine Take medication as directed Contact office if chest pain, pressure, dizziness, shortness of breath, swelling legs Recommend slow position changes Current meds: amlodipine Assessment & Plan (02/11/2024 8:45 AM EDT): Currently taking amlodipine 10mg Does not check BP at home; BP good today in office. Denies orthostatic changes, dizziness, cough, shortness of breath, swelling in extremities. Continue current regimen. Given BP log, advised pt to record BP and bring log back with them to next visit. Assessment & Plan (11/25/2023 2:05 PM EDT): BP well controlled. On average less than 130/90. Tolerating Anti hypertensive w/o adverse effects. C/w amlodipine 10 mg . Assessment & Plan (09/25/2023 3:30 PM EDT): BP well controlled. On average less than 130/90. Tolerating Anti hypertensive w/o adverse effects. Patient encouraged to continue with home BP monitoring and call office if he experiences orthostatic symptoms or persistently elevated BP. C/w amlodipine 10 mg . Assessment & Plan (08/19/2023 3:09 PM EDT): BP well controlled. On average less than 130/90. Tolerating Anti hypertensive w/o adverse effects. Patient encouraged to continue with home BP monitoring and call office if he experiences orthostatic symptoms or persistently elevated BP. C/w Norvasc 10 mg. Assessment & Plan (03/27/2023 3:53 PM EST): Ran out of Norvasc for a few days and has not been using it. BP well controlled when he is using Norvasc. On average less than 130/90. Tolerating Anti hypertensive w/o adverse effects. Denies lightheadedness, dizziness, syncope, presyncope. Patient encouraged to continue with home BP monitoring and call office if he experiences orthostatic symptoms or persistently elevated BP. History of prediabetes 03/27/2023 Assessment & Plan (03/27/2023 3:54 PM EST): A1C 5.8 - screened for T2 DM. Patient reports he has improved his diet, increased physical activity. Patient would like to hold off on rechecking A1C due to financial reasons. Resolved Problems Problem Noted Date Diagnosed Date Resolved Date Acute non-recurrent frontal sinusitis 05/03/2024 08/03/2024 Assessment & Plan (05/03/2024 11:07 AM EST): Cough/Runny nose/Headache/X1+ month. Did not have ostomy reversal due to having cold like symptoms on day of surgery. Pt states surgery was concerned he would blow sutures out. Denies shortness of breath or chest pain. Will treat with Augmentin and steroids today since symptoms have been ongoing. Upper respiratory tract infection 02/05/2024 08/03/2024 Assessment & Plan (02/11/2024 8:50 AM EDT): Does report having sinus congestion, runny nose and post nasal drip for several days. Is concerned that this may interfere with surgery. Discussed likely viral etiology. Recommended pt discuss this with provider at presurgical appointment. Recommended Flonase and OTC antihistamines. Advised against vitamins or supplements, or initiation of new medications prior to surgery without surgeon approval first. Hospital discharge follow-up 08/19/2023 08/03/2024 Assessment & Plan (08/19/2023 3:14 PM EDT): Hospital admission for sigmoid diverticulitis with perforation - s/p colectomy and now has colostomy in place. Pt doing well. No active complaints to offer. Denies any GI symptoms. Planned for reversal for Colostomy in 2 months. Encounter for Medicare annual wellness exam 03/27/2023 08/03/2024 Assessment & Plan (03/27/2023 4:03 PM EST): Patient here for medicare wellness. Reviewed medical, surgical and social hx. Denies smoking, alcohol use. Sporadically uses Marijuana Upto date on Colon Cancer Screening Refusing Flu. Patient instructed to get Shingles Vaccine. No recent falls. Steady gait. Not seeing a specialist for anything else. Mini Cog 5/5 Pain, dental 03/27/2023 08/03/2024 Assessment & Plan (03/27/2023 3:57 PM EST): Left upper Incisor broke but has pain, difficulty chewing. Overall poor dental hygiene, dental caries, missing teeth, associated periodontitis. Will call in oral Augmentin. Patient counseled and educated on adverse effects, drug interactions and to reach out to office/pharmacy if questions or concerns related to new medications. Patient encouraged to make an appointment with Dentist as it seems he will likely need multiple teeth pulled out. Encounters Date Type Department Care Team Description 09/28/2024 Orders Only [facility] [address] [place] [address] Pio Isaacs MD 08/10/2024 Orders Only [facility] [address] [place] [address] Yissel Arevalo NP Elevated PSA (Primary Dx) 08/09/2024 Clinisync Result Encounter [facility] External Department Unsolicited Yissel Arevalo NP 08/06/2024 Orders Only [facility] [address] [place] [address] Yissel Arevalo NP Elevated PSA (Primary Dx); Asymptomatic microscopic hematuria 08/05/2024 Clinisync Result Encounter [facility] External Department Unsolicited Yissel Arevalo NP 08/03/2024 2:00 PM EDT Office Visit [facility] [address] [place] [address] Yissel Arevalo NP Encounter for subsequent annual wellness visit (AWV) in Medicare patient (Primary Dx); Colostomy status (CMS/HCC); Primary hypertension (CMS/HCC); Prostate cancer screening; History of prediabetes 08/03/2024 Noemy flowsheet [facility] [address] [place] [address] Yissel Arevalo NP from Last 3 Months Family History Medical History Relation Name Comments Heart disease Father Stroke Father Cancer Mother Relation Name Status Comments Father Mother Social History Tobacco Use Types Packs/Day Years Used Date Smoking Tobacco: Never Passive Smoke Exposure: Never Smokeless Tobacco: Never Tobacco Cessation:Counseling Given: Not Answered Alcohol Use Standard Drinks/Week Comments Never 0 [...] often do you attend chur ch or baptism services? 1 to 4 times per year 03/27/2023 Do you belong to any clubs o r organizations such as catholic groups, unions, fraternal or athletic groups, or [...] Answer Date Recorded Patient Health Questionnaire-2 Score 2 08/03/2024 [facility] of Occupat ional Health - Occupational Stress Questionnaire Answer Date Recorded [...] place to sleep or slept in a usp (including now)? No 03/27/2023 Sex and Gender Information Value Date Recorded Sex Assigned at Not on file Legal Sex Male 8:26 PM EDT Gender Identity Not on file Sexual Orientation Not on file Last Filed Vital Signs Vital Sign Reading Time Taken Comments Blood Pressure 140/84 08/03/2024 2:19 PM EDT Pulse 94 08/03/2024 2:19 PM EDT Temperature 36.9 C (98.5 F) 08/03/2024 2:19 PM EDT Respiratory Rate 18 05/03/2024 10:45 AM EST Oxygen Saturation 96% 08/03/2024 2:19 PM EDT Inhaled Oxygen Concentration - - Weight 80.9 kg (178 lb 6.4 oz) 08/03/2024 2:19 P M EDT Height 177.8 cm (5' 10 ) 05/03/2024 10:45 AM EST Body Mass Index 25.6 05/03/2024 10:45 AM EST Plan of Treatment Upcoming Encounters Date Type Department Care Team (Late st Contact Info) Description 11/02/2024 1:00 PM EDT [facility] [address] [place] [address] Yissel Arevalo, GREGORIO [address] [place] [address] 08/08/2025 4:30 PM EDT Office Visit [facility] [address] [place] [address] Yissel Arevalo NP [address] [place] [phone] Health Maintenance Due Date Last Done Comments CT Colonography 1958 FIT-DNA 1960 FIT 1960 FOBT 1960 Sigmoidoscopy 1960 Pneumococcal Vaccine: 65+ Ye ars (1 of 1 - PCV) 2008 Influenza Vaccine (Season Ended) 2024 Medicare Annual Wellness (AWV) 08/03/2025 08/03/2024 , 03/27/2023 Colonoscopy 01/08/2034 01/09/2024, 12/27, 04/28/2020 Colorectal Cancer Screening 01/08/2034 Procedures Procedure Name Priority Date/Time Associated Diagnosis Comments SCANNED LABS Routine 09/28/2024 10:12 AM EDT URINALYSIS REFLEX Routine 08/30/2024 1:2 6 PM EDT Primary hypertension (CMS/HCC) History of prediabetes PSA TOTAL+% FREE Routine 08/09/2024 10:1 2 AM EDT ALL LIPID PROFILE (FASTING) Routine 08/05/2024 9:51 AM EDT [facility] CMP (CMP) (FOR REMOTE [facility] USE) Routine 08/05/2024 9:51 AM EDT [facility] PROSTATE SPECIFIC ANTIGEN SCRN Routine 08/05/2024 9:51 AM EDT MLR HEMOGLOBIN A1C Routine 08/05/2024 9: 51 AM EDT ALL CBC WITH AUTO DIFF Routine 08/05/2024 9:51 AM EDT TBH MICROALB CREAT RATIO RANDOM Routine 08/05/2024 9:40 AM EDT TBH URINE MICROSCOPIC ONLY Routine 08/05/2024 9:40 AM EDT TBH UA (CLEAN/CATCH) MICROSCOPIC IF INDICATE Routine 08/05/2024 9:40 AM EDT from Last 3 Months Results * SCANNED LABS (09/28/2024 10:12 AM EDT) us Pio Isaacs MD LAB CHG PERFORMABLES Final R esult * Urinalysis with reflex microscopic (clean catch) (08/30/2024 1:26 PM EDT) Urine Urine specimen obtained by clean catch procedure / Unknown Yissel Arevalo NP LAB URINE ORDERABLES Final Resu lt [facility] * (ABNORMAL) PSA TOTAL+% FREE (08/09/2024 10:12 AM EDT) PROSTATE SPECIFIC AG 13.0(A) 0.0 - 4.0 ng/mL [facility] Comment: EverypointIA methodology. According to the [place] [employer], Serum PSA should decrease and remain at undetectable levels after radical prostatectomy. The AUA defines biochemical recurrence as an initial PSA value 0.2 ng/mL or greater followed by a subsequent confirmatory PSA value 0.2 ng/mL or greater. Values obtained with different assay methods or kits cannot be used interchangeably. Results cannot be interpreted as absolute evidence of the presence or absence of malignant disease. PSA, FREE 1.32 N/A ng/mL TB Comment:Gómez ECLIA methodol ogy. % FREE PSA 10.2 . % [facility]H Comment: The table below lists the probability of prostate cancer for men with non-suspicious JEANETTE results and total PSA between 4 and 10 ng/mL, by patient age (Fide et al, CHRISTINA 1998, 279:1542). % Free PSA 50-64 yr 65-75 yr 0.00-10.00% 56% 55% 10.01-15.00% 24% 35% 15.01-20.00% 17% 23% 20.01-25.00% 10% 20% >25.00% 5% 9% Please note: Fide et al did not make specific recommendations regarding the use of percent free PSA for any other population of men. Performed at: [address] [id number] Blister Pack Operator: Dandre Silverman PhD, Phone: [phone] 08/09/2024 10:1 2 AM EDT 08/09/2024 10:24 AM EDT Narrative CLINISYNC - 08/10/2024 4:08 AM EDT us Yissel Arevalo NP LAB BLOOD ORDERABLES Final Resu lt [facility]INISYNC TB * (ABNORMAL) [facility] PROSTATE SPECIFIC ANTIGEN SCRN (08/05/2024 9:51 AM EDT) PROSTATE SPECIFIC ANTIGEN SCRN 15.33(H) <=4.00 ng/mL TB 08/05/2024 9:51 AM EDT 08/05/2024 9:53 AM EDT Narrative CLINISYNC - 08/05/2024 12:13 PM EDT Yissel Arevalo NP CLINISYNC Final Result Performing Organization Address [facility] de Phone Number CLINISYNC TB * MLR HEMOGLOBIN A1C (08/05/2024 9:51 AM EDT) GLYCOHEMOGLOBIN A1C 6.0 4.5 - 6.2 % [facility] Comment: ADA RECOMMENDED LIMIT 4.0 - 6.0 ADA THERAPEUTIC TARGET < 7.0 ACTION SUGGESTED > 7.0 ESTIMATED AVERAGE GLUCOSE 126 mg/dL TB 08/05/2024 9:51 AM EDT 08/05/2024 9:53 AM EDT Narrative CLINISYNC - 08/05/2024 11:17 AM EDT Yissel Arevalo NP CLINISYNC Final Result Performing Organization Address [facility] Co de Phone Number CLINISYNC TB * [facility] CMP (CMP) (FOR REMOTE [facility] USE) (08/05/2024 9:51 AM EDT) SODIUM 142 136 - 145 mmol/L TBH POTASSIUM 3.8 3.5 - 5.1 mmol/L TBH CHLORIDE 103 98 - 107 mmol/L TBH CARBON DIOXIDE 31.2 21.0 - 32.0 mmol/L TBH ANION GAP 11.6 TBH GLUCOSE 104 74 - 106 mg/dL TBH BLOOD UREA NITROGEN 13.0 7.0 - 18.0 mg/dL TBH CREATININE 1.18 0.70 - 1.30 mg/dL TBH TBH EGFR-AF HONDURAN >60 >=60 mL/min/1. 73m 2 TBH TBH EGFR-NON AF HONDURAN >60 >=60 mL/min/1. 73m 2 TBH BUN CREATININE RATIO 11.0 TBH CALCIUM 9.8 8.5 - 10.1 mg/dL TBH BILIRUBIN TOTAL 0.7 0.2 - 1.0 mg/dL TBH ASPARTATE AMINO TRANSFERASE 19 15 - 37 U/L TBH ALANINE AMINOTRANSFERASE 26 16 - 63 U/L TBH ALKALINE PHOSPHATASE 83 46 - 116 U/L TBH TOTAL PROTEIN 7.6 6.4 - 8.2 g/dL TBH ALBUMIN LEVEL 4.0 3.4 - 5.0 g/dL TBH GLOBULIN 3.6 g/dL TBH ALBUMIN GLOBULIN RATIO 1.1 TBH 08/05/2024 9:51 AM EDT 08/05/2024 9:53 AM EDT Narrative CLINISYNC - 08/05/2024 12:34 PM EDT us Yissel Arevalo NP CLINIS[facility]NC Final Result [facility] * (ABNORMAL) ALL LIPID PROFILE (FASTING) (08/05/2024 9:51 AM EDT) TRIGLYCERIDES 150 <=150 mg/dL TBH CHOLESTEROL 213(H) <=200 mg/dL TBH HDL CHOLESTEROL 73(H) 40 - 60 mg/dL TB Comment: > or =60 mg/dl - LOW CARDIOVASCULAR RISK <40 mg/dl - HIGH CARDIOVASCULAR RISK LDL CHOLESTEROL CALCULATED 110.0 mg/dL TB Comment: <100 mg/dl OPTIMAL 100-129 mg/dl NEAR OR ABOVE OPTIMAL 130-159 mg/dl BORDERLINE HIGH 160-189 mg/dl HIGH >190 mg/dl VERY HIGH VLDL CHOLESTEROL 30.0 mg/dL TB CHOL HDL RATIO 2.9 TB Comment: 3.3 - 4.4 LOW RISK 4.4 - 7.1 AVERAGE RISK 7.1 - 11.0 MODERATE RISK >11.0 HIGH RISK 08/05/2024 9:51 AM EDT 08/05/2024 9:53 AM EDT Narrative CLINISYNC - 08/05/2024 12:34 PM EDT us Yissel Mickey PERKINS CLINISYNC Final Result [facility]IS[facility]NC TB * (ABNORMAL) ALL CBC WITH AUTO DIFF (08/05/2024 9:51 AM EDT) TB WBC 9.1 4.0 - 11.0 10 3/uL TBH TBH RBC 5.37 4.70 - 6.10 10 6/uL TBH TBH HGB 16.9 14.0 - 18.0 g/dL TBH TBH HCT 51.0 42.0 - 54.0 % TBH TBH MCV 95.0(H) 80.0 - 94.0 fL TBH TBH MCH 31.5 25.9 - 34.0 pg TBH TBH MCHC 33.1 29.9 - 35.2 g/dL TBH TBH RDW 13.4 11.0 - 15.0 % TBH TBH PLT 283 150 - 450 10 3/uL TBH TBH MPV 10.0 9.5 - 13.5 fL TBH NEUTROPHILS PERCENT AUTO 54.3 43.0 - 75.0 % TBH LYMPHOCYTES PERCENT AUTO 34.7 20.5 - 60.0 % TBH MONOCYTES PERCENT AUTO 8.3 1.7 - 12.0 % TBH TBH EO % 1.3 0.9 - 7.0 % TBH BASOPHILS PERCENT AUTO 0.9 0.2 - 2.0 % TBH IMMATURE GRANULOCYTES PCT AUTO 0.5 0.0 - 0.5 % TBH NEUTROPHILS ABSOLUTE AUTO 5.0 1.4 - 6.5 10 3/uL TBH LYMPHOCYTES ABSOLUTE AUTO 3.2 1.2 - 3.8 10 3/uL TBH MONOCYTES ABSOLUTE AUTO 0.8 0.3 - 0.8 10 3/uL TBH TBH EO # 0.1 0.0 - 0.7 10 3/uL TBH BASOPHILS ABSOLUTE AUTO 0.1 0.0 - 0.1 10 3/uL TBH IMMATURE GRANULOCYTES ABS AUTO 0.05(H) 0.00 - 0.03 10 3/uL TBH 08/05/2024 9:51 AM EDT 08/05/2024 9:53 AM EDT Narrative CLINISYNC - 08/05/2024 10:12 AM EDT Yissel Mickey PERKINS CLINISYNC Final Result Performing Organization Address [facility] de Phone Number CLINISYNC TBH * (ABNORMAL) TBH URINE MICROSCOPIC ONLY (08/05/2024 9:40 AM EDT) TBH WBC NONE SEEN NONE SEEN #/HPF TBH TBH RBC 2-5(A) 0 - 2 #/HPF TBH BACTERIA URINE TRACE(A) NONE SEEN #/HPF TBH MUCUS URINE NONE SEEN NONE SEEN TBH SQUAMOUS EPITHELIAL CELL URINE RARE NONE/RARE #/LPF TBH CRYSTALS SEEN? None Seen None Seen #/HPF TBH CAST SEEN? NONE SEEN NONE SEEN #/LPF TBH 08/05/2024 9:40 AM EDT 08/05/2024 12:43 PM EDT Narrative CLINISYNC - 08/05/2024 1:10 PM EDT Yissel Arevalo NP CLINISYNC Final Result Performing Organization Address [facility] de Phone Number CLINISYNC TBH * TBH UA (CLEAN/CATCH) MICROSCOPIC IF INDICATE (08/05/2024 9:40 AM EDT) COLOR URINE LT. YELLOW YELLOW TBH CLARITY URINE CLEAR CLEAR TBH SPECIFIC GRAVITY URINE 1.015 1.005 - 1.025 TBH PH URINE 7.5 5.0 - 9.0 TBH PROTEIN URINE TRACE NEG/TRACE mg/dL TBH GLUCOSE URINE UA NEGATIVE NEGATIVE mg/dL TBH BILIRUBIN URINE NEGATIVE NEGATIVE TBH KETONES URINE NEGATIVE NEGATIVE mg/dL TBH BLOOD URINE TRACE-I NEGATIVE TBH NITRITE URINE NEGATIVE NEGATIVE TBH UROBILINOGEN URINE 0.2 0.2 - 1.0 EU/dL TBH LEUKOCYTE ESTERASE URINE NEGATIVE NEGATIVE TBH URINE MICROSCOPIC INDICATED YES TBH 08/05/2024 9:40 AM EDT 08/05/2024 12:43 PM EDT Narrative CLINISYNC - 08/05/2024 1:10 PM EDT us Yissel Arevalo NP CLINISYNC Final Result CLINISYNC TBH * (ABNORMAL) TBH MICROALB CREAT RATIO RANDOM (08/05/2024 9:40 AM EDT) MICROALBUMIN URINE RANDOM 6.6 <=30.0 mg/dL TBH CREATININE URINE RANDOM 113.63 20.00 - 300.00 mg/dL TBH MICROALBUM CREATININE RATIO UR 58.0(H) 0.0 - 29.9 mg/g TBH Comment: NO MICROALBUMINURIA 0-29 MG/G CLINICAL MICROALBUMINURIA 30-300 MG/G MACROALBUMINURIA >300 MG/G 08/05/2024 9:40 AM EDT 08/05/2024 12:43 PM EDT Narrative CLINISYNC - 08/05/2024 1:15 PM EDT us Yissel Arevalo NP CLINISYNC Final Result CLINISYNC TB from Last 3 Months Insurance MEDICARE MEDICAID [place] Care Teams Music Composer Relationship Specialty Start Date End Date Varghese Carrizales MD [address] [place] [phone] PCP - General Family Medicine 01/21/24 Netta Dorman NP [address] [place] [phone] Nurse Practitioner Family Medicine 01/21/24
--- OUTSIDE RECORDS SUMMARY | 2024-10-04 13:50 | XMS_ITS | Encounter Summary ---
Author Organization [employer] Address [facility] [id number] [address] [place] [address] Care Team Providers Care Ornithology Teacher Name Role Phone Netta Dorman Randa EXHIBITION DESIGNER-PLATE STACKER Primary Care Pr ovider Encounter Details Date Type Department Care Team (Late st Contact Info) Description 07/20/2023 Orders Only [facility] External Film Storage [address] [place] [phone] Transcribe, Orders Support User Pain (Primary Dx) Social History Tobacco Use Types Packs/Day Years Used Date Smoking Tobacco: Never Smokeless Tobacco: Never Alcohol Use Standard Drinks/Week Comments Not Currently 0 (1 standard drink = 0.6 oz pur e alcohol) [facility] Utilities Answer Date Recorded In the past 12 months has e DVD[employer], gas, oil, or water company threatened to [...] before we got money to buy more. Never True 07/20/2023 Within the past 12 months th e food we bought just didn't last and we didn't have money to get more. Never True 07/20/2023 Purpose - Life Answer Date Recorded Purpose and direction in life Unknown Sex and Gender Information Value Date Recorded Sex Assigned at Not on file Legal Sex Male 11:33 AM EDT Gender Identity Not on file Sexual Orientation Not on file documented as of this encounter Functional Status * Audit-C Score Answer Date of Assessment Author 0 07/20/2023 4:11 PM Melia Hansen RN * Intimate Partner Violence Question Answer Date of Assessment Author Within the last year, have y ou been humiliated or emotionally abused in other ways by your partner or ex-partner? No 07/20/2023 4:00 PM Janelle Hansen RN Within the last year, have y ou been afraid of your partner or ex-partner? No 07/20/2023 4:00 PM Janelle Hansen RN Within the last year, have y ou been raped or forced to have any kind of sexual activity by your partner or ex-partner? No 07/20/2023 4:00 PM Janelle Hansen RN Within the last year, have y ou been kicked, hit, slapped, or otherwise physically hurt by your partner or ex-partner? No 07/20/2023 4:00 PM Janelle Hansen RN * Question Answer Date of Assessment Author Q1: How often do you have a drink containing alcohol? Never 07/20/2023 4:11 PM Janelle Hansen RN Q2: How many drinks containing alcohol do you have on a typical day when you are drinking? Patient does not drink 07/20/2023 4:11 PM EDT Janelle Pierce, GUERO Q3: How often do you have six or more drinks on one occasion? Never 07/20/2023 4:11 PM EDT Janelle Pierce RN * Question Answer Date of Assessment Author Functional Status Independent 07/20/2023 4:09 PM EDT Janelle Pierce RN documented as of this encounter Mental Status * Question Answer Entry Date Author Overall Cognitive Status WFL 07/23/2023 9:13 AM EDT Maxime Muir, PT documented in this encounter Plan of Treatment Not on file documented as of this encounter Goals Goal Patient Goal Type Associated Problems Recent Progress Patient-Stated? Author Return to home with home care General Yes Tyesha Topete, GUERO Note: Evaluation of progress towards goal: documented as of this encounter Results * CT abdomen and pelvis with contrast (07/19/2023 6:25 PM EDT) us Scanning Provider External IMG CT ORDERABLES Fin al Result documented in this encounter Visit Diagnoses Diagnosis Pain- Primary Generalized pain documented in this encounter Additional Health Concerns Assessment Noted Time PHQ-9 Depression Total Score: 1 07/20/19 4:11 PM EDT documented as of this encounter Care Teams Ornithology Teacher Relationship Specialty Start Date End Date Netta Dorman, EXHIBITION DESIGNER-PLATE STACKER [address] [place] [address] PCP - General Nurse Practitioner 02/06/24 documented as of this encounter
--- OUTSIDE RECORDS SUMMARY | 2024-10-04 13:50 | XMS_ITS | Encounter Summary ---
Author Organization [facility] Address [address] [place] [address] Care Team Providers Care C Java Developer Name Role Phone Varghese Carrizales MD Primary Care Provider [phone] Netta Dorman GAMEROOM TECHNICIAN Unavailable [phone] Encounter Details Date Type Department Care Team (Late st Contact Info) Description 09/28/2024 Orders Only [facility] [address] [place] [address] Pio Isaacs MD [address] [place] [address] Social History Tobacco Use Types Packs/Day Years Used Date Smoking Tobacco: Never Passive Smoke Exposure: Never Smokeless Tobacco: Never Alcohol Use Standard [...] often do you attend chur ch or jew services? 1 to 4 times per year 03/27/2023 Do you belong to any clubs o r organizations such as mosque groups, unions, fraternal or athletic groups, or [...] Recorded Patient Health Questionnaire-2 Score 2 08/03/2024 [facility] - Occupational Stress [...] place to sleep or slept in a nursing home (including now)? No 03/27/2023 Sex and Gender Information Value Date Recorded Sex Assigned at Not on file Legal Sex Male 8:26 PM EDT Gender Identity Not on file Sexual Orientation Not on file documented as of this encounter Plan of Treatment Upcoming Encounters Date Type Department Care Team (Late st Contact Info) Description 11/02/2024 1:00 PM EDT Office Visit [facility] [address] [place] [address] Yissel Arevalo NP [address] [place] [address] 08/08/2025 4:30 PM EDT Office Visit [facility] [address] [place] [address] Yissel Arevalo NP [address] [place] [phone] documented as of this encounter Procedures Procedure Name Priority Date/Time Associated Diagnosis Comments SCANNED LABS Routine 09/28/2024 10:12 AM EDT documented in this encounter Results * SCANNED LABS (09/28/2024 10:12 AM EDT) us Pio Isaacs MD LAB CHG PERFORMABLES Final R esult documented in this encounter Visit Diagnoses Not on filedocumented in this encounter Additional Health Concerns Assessment Noted Time PHQ-9 Depression Total Score: 8 08/04/19 25 2:22 PM EDT documented as of this encounter Care Teams C Java Developer Relationship Specialty Start Date End Date Varghese Carrizales MD [address] [place] [id number] PCP - General Family Medicine 01/21/24 Netta Dorman NP [address] [place] [phone] Nurse Practitioner Family Medicine 01/21/24 documented as of this encounter
--- NOTE | 2024-10-04 13:54 | US_ITS ---
The [address] [address] Patient Name: CIPRIANO CASTRO MRN: [id number] date: 1960 Sex: M Assigned Patient Location: US Current Patient Location: US Accession/Order Number: [id number] Exam Date: 10/04/2024 15:49 Report Date: 10/04/2024 15:51 At the request of: CLARISSA LAWRENCE MD Procedure: US scrotum Scrotal ultrasound HISTORY: Left scrotal swelling. Hydrocele. COMPARISON: None RIGHT testicle measures 4.1 x 2.3 x 3.5 cm. LEFT testicle measures 4.0 x 2.4 x 3.7 cm. No testicular mass or microcalcifications identified. Normal color flow of both testicles identified. RIGHT epididymal head within normal limits LEFT epididymal head within normal limits . Minimal right hydrocele. Large left hydrocele. No scrotal wall abnormality identified. US/US scrotum IMPRESSION: Normal testicles. Normal right and left epididymis. Large, anechoic left hydrocele. Impression dictated by: Gonzalo Mccall M.D. 10/04/2024 3:51 PM Dictation Location: [place] [address] Electronically authenticated by: [id number] Y Date: 10/04/2024 15:51
== END 2024-10-04 13:47 | disposition home or self-care (01) ==
LOC: US 13:48
PROVIDERS: PCP Nurse Practitioner; Visit Provider Urology
DX: N43.3 Hydrocele, unspecified (principal)
CPT/HCPCS: 76870

== ENCOUNTER 2025-04-27 09:37 | Outpatient (OUT) | payer MEDICARE, MEDICAID, SELFPAY ==
--- OUTSIDE RECORDS SUMMARY | 2025-04-26 08:42 | XMS_ITS | Continuity of Care Document ---
Author Organization [facility] Address [address] [place] [address] Phone Care Team Providers Care Extracorporeal Technician Name Role Phone Yissel Arevalo NP-C Primary Care Provider Mark Rivera MD Attending Provider [phone] Yissel Arevalo NP-C Attending Provider Care Teams Patient Care Team Team Status: Active Member Role/Relationship Status Dates Yissel Arevalo NP-Zakia Primary Care Provider Active Visit Care Team Team Status: Active Member Role/Relationship Status Dates Yissel Arevalo OUT AND OUT CIGAR MAKER HAND-C Primary Care Provider Active Start: February 08, 2025 Duke Nieves ProviderActiveStart: February 08, 2025 Patient Care Team Team Status: Inactive Member Role/Relationship Status Dates Yissel Arevalo NP-C Primary Care Provider Active Start: April 26, 2025 End: April 26, 2025Krishna Craventendanyell ProviderActiveStart: April 26, 2025 End: April 26, 2025 Chief Complaint and Reason for Visit Chief Complaint Admit Date 3M April 26, 2025 1:03pm Reason for Visit Admit Date Adenocarcinoma of prostate March 1:03pm HTN (hypertension) April 26, 2025 1:03pm Pre-diabetes April 26, 2025 1:03pm Allergies, Adverse Reactions, Alerts Allergen Type Severity Reaction Last Updated Verified Status red dye 40 Allergy Unknown unknown January 20, 2025 7:44am N o Active Social History Smoking Status Unknown if ever smoked Observation Status Observation Response Date of Response Legal Sex Male (finding) Sex Assigned At BirthMaleFebruary 1960 Problems Active Problems Problem Diagnosis/Recorded Date Onset Date Stat us Encounter for subsequent jorge ual wellness visit (AWV) in Medicare patient January 20, 2025 7:57am Unknown Active BPH with elevated PSA January 20, 2025 7:56am Unkn own Active Parastomal hernia without ob struction or gangrene January 20, 2025 7:58am Unknown Active Diverticulitis January 20, 2025 7:57am Unknown Active Status post Kathy procedure January 20, 2025 7: 59am Unknown Active Perforation of sigmoid colon due to diverticulitis January 20, 2025 7:59am Unknown Active Colostomy in place January 20, 2025 7:56am Unknown Active Pre-diabetes April 26, 2025 1:34pm Unknown A ctive Adenocarcinoma of prostate January 20, 2025 7:44am Unknown Active Asymptomatic microscopic hematuria January 20 7:45am Unknown Active Hx of radiation therapy April 26, 2025 1:25pm Unk nown Active Cystitis January 20, 2025 7:57am Unknown Active Hydrocele January 20, 2025 7:58am Unknown Active HTN (hypertension) January 20, 2025 7:59am Unknown Active Numbness and tingling in left hand January 20 7:58am Unknown Active Chronic idiopathic constipation January 20, 2025 7 :56am Unknown Active Inactive/Resolved Problems Problem Diagnosis/Recorded Date Onset Date Stat us Pain, dental March 02, 2025 6:16pm Unknown Re solved Dental infection March 03, 2025 8:53am Unknown Resolved Medications Medication Status Dose Units Route Directions Qty Days Refills S tart Date Stop Date End Date Reason(s) Instructions Adherence Ibuprofen 800 mg tablet Active 800 MG PO Every 8 hours as needed for pain 2024 12:00amToothache Other specified disorders of teeth and supporting structurestake with food Complies with drug therapyAmoxicillin-Pot Clavulanate 875-125 mg tablet Oidokdjfscnz1RGXVBWdnsk 12 vsegp411LnnohrvrMarch 03, 2025 12:00amDecember 2024 6:54amInfection of tooth Periapical abscess without sinustake with foodAmlodipine 10 mg tablet Pjasdaeyvaxn20DIDZXmlukJxbtgmshj 25th, 2025 11:00pmSeptember 2024 3:11pm Fluticasone Propionate (Flonase Allergy Relief) 50 mcg/actuation spray,kunvmggwloZevhsvdxvaoj1AGPEUYFDHXGKYMKAplfsCdvezaozq 25th, 2025 11:00pm April 26, 2025 1:26pmadminister into each nostrilAmlodipine 10 mg tablet Blgcmrsjtgha72NEJAGigbo114Vjbfblqee 29th, 2025 3:11pmDecember 2024 1:41pm Hypertension Essential (primary) hypertensionAmlodipine 10 mg ofsgbzNsshuv89KISUWmqdu943 April 26, 2025 1:41pmHypertension Essential (primary) hypertensionComplies with drug therapy Relevant Diagnostic Tests and/or Laboratory Data Laboratory Results Test Collection Date/Time Result Date/Time Result Interpretation Reference Range Result Comment Performing Site Prostate Specific Antigen February 08, 2025 8:03am February 08, 2025 8:03am 0.15 ng/mL <2.60Total PSA test methodology used is the Electrochemiluminescence Immunoassay by [employer]. Total PSA values by differing methodologies cannot be interchanged. Vital Signs Vital Reading Result Reference Range Collection Date/Time Height 69 [in_i] April 26, 2025 1:77spMzzpfr37.70 kgDecemb2024 1:06pmBody Krrrezlkigv51.1 [degF]97.6-99.0December 2024 1:06pmHeart Rate90 /bhf96-161 April 26, 2025 1:06pmRespiratory rate20 /hbi60-96Ojgxzygi 30th, 2025 1:06pm Oxygen saturation by Pulse pqguraya19 %95-100Decemb2024 1:06pmBP Tknecfeh863 mm[Hg]100-140Decemb2024 1:06pmBP Hgmqescjs66 mm[Hg]60-100 April 26, 2025 1:06pmBMI (Body Mass Index)26.6 kg/x1Htlbehhl2024 1:06pm Advance Directives Advance Directive Response Recorded Date/ Time Advance Directives No December 4:47pm Insurance Providers Guarantor Ty Blanton Address [address] [place] [address]Pvgoqyb Info.Home Phone: Coverage Status Update:2025 Payer Group Member ID Coverage Type Subscriber Relationship to Subscriber Effective Date Expiration Date Medicaid [id number] White , P Id: [id number] [address] [place] [address] Home Phone: Email: [email or web address] [id number] White , P Id: [id number] [address] [place] [address] Home Phone: Email: [email or web address] Encounters Encounter Location(s) Arrival/Admit Date Discharge/Departure Date Discharge/Departure Disposition Provider(s) Non-patient / Non-visit -[facility] 2024 9:03am Kwasi Rivera , MDDeparted Physician/Provider Office Visit-[facility] Family Medicine [facility] 2024 1:03pmDece2024 1:40pmDischarged to home care or self care (routine discharge)Yissel Arevalo , OUT AND OUT CIGAR MAKER HAND-C Recent Diagnosis Onset Date Admit Date Adenocarcinoma of prostate Unknown Decem 2024 1:03pm HTN (hypertension) Unknown March 1:03pm Pre-diabetes Unknown April 26, 1:03pm Assessments Diagnosis Onset Date Resolution Status Admit Date Adenocarcinoma of prostate acuteDece2024 1:03pmHTN (hypertension)acuteDe2024 1:03pm Pre-diabetesacuteApril 26, 2025 1:03pm Plan of Treatment Author iYssel [facility]val[facility] 1:37pmPlease check blood pressure daily and record DASH diet Limit caffeine Take medication as directed Contact office if chest pain, pressures, dizziness, shortness of breath, swelling in the legs Recommend slow position changes if you develop dizziness with position changes current meds: amlodipine was referred to urology for this, is also seeing oncology just finished radiation on 01/17/25 continue survaillence Watch for increase thirst, urination, and appetite as these can be signs of high blood sugar. Inspect your feet frequently monitor for open wounds, wear proper fitting shoes as well. Pt should attempt to remain as physical active as chronic conditions allow, as well as trying to follow a diet lower in carbohydrates, and simple sugars. check labs Future Tests Future scheduled test information is unavailable Pending Tests Pending diagnostic test information is unavailable Future Visits Future appointment information is unavailable Future Procedures Procedure Name Ordered Date Scheduled Date A1C with Estimated Average Glu April 26 1:37pm Basic Metabolic PanelDecember 2024 1:37pmComplete Blood Count Auto Diff April 26, 2025 1:38pm Future Medications Future medication information is unavailable Patient Instructions Patient instructions are unavailable
--- OUTSIDE RECORDS SUMMARY | 2025-04-27 09:43 | XMS_ITS | Clinical Summary ---
Author Organization [facility] Address [address] [place] [address] Care Team Providers Care [employer] Consultant Name Role Phone Varghese Carrizales MD Primary Care Provider Netta Dorman CORPORATE TRUST OFFICER Unavailable [phone] Allergies Active AllergyReactionsCriticalityNoted DateCommentsRed Dye #40 (Allura Red) Other10/20/2024 Rectal bleeding per patient Medications MedicationSigDispense QuantityRefillsLast FilledStart DateEnd DateStatus fluticasone (Flonase) 50 MCG/ACT nasal spray Indications:Viral URIAdminister 1-2 sprays into each nostril Daily Shake gently. Before first use, prime pump. After use, clean tip and replace cap. 16 g ctive amLODIPine (Norvasc) 10 MG tablet Indications:Primary hypertensionTake 1 tablet (10 mg) by mouth Daily 90 tablet tive Active Problems ProblemNoted DateDiagnosed DateBPH with elevated PSA11/02/2024 Assessment & Plan (11/02/2024 6:18 AM EDT): Continue with urology Jpbdbcamcwuntx19/08/5704Vmcckhxlz86/08/2025denocarcinoma of qurfvhys29/03/2025 Assessment & Plan (11/02/2024 6:19 AM EDT): Reviewed notes from radiation oncologist Asymptomatic microscopic qmsbngtje11/11/2025Encounter for subsequent annual wellness visit (AWV) in Medicare lklavel6608/03/2024 Assessment & Plan (08/03/2024 3:07 PM EDT): Reviewed Ht/Wt/BMI Recommend eye exam yearly Recommend dental exams twice a year Balance work/leisure activities Exercises is recommended most days of the week (appropriate as chronic conditions allow) Follow up yearly and prn Parastomal hernia without obstruction or hyltndmn09/28/1944Cuabtlhd15/25/2024 Assessment & Plan (10/21/2023 1:28 PM EDT): Follow up of ED visit. Sec to Ecoli, treated with keflex. Patient reports mild pain over stoma site and wanted to make sure his UTI had resolved. UA in office - no indication of UTI. Chronic idiopathic whxuxfeiirns29/25/2024 Assessment & Plan (10/21/2023 1:27 PM EDT): On senna. Works well for him Numbness and tingling in left hand09/25/2023 Assessment & Plan (09/25/2023 3:38 PM EDT): Numbness/tingling in left hand. Ongoing for a month. Ulnar nerve distribution. Ordered EMG/NCV but patient refusing and would like to see if his symptoms improve on their own Perforation of sigmoid colon due to tzvtpmwkeltpsp06/23/2024 Assessment & Plan (08/19/2023 3:11 PM EDT): Admission for sigmoid diverticulitis with perforation - s/p colectomy and now has colostomy in place. Patient is still learning to cope and deal with Colostomy. He has home health in place to help him manage colostomy. Status post Kathy tjwwhpdow07/23/2024 Assessment & Plan (08/19/2023 3:12 PM EDT): S/p colectomy. Now has colostomy in place. Plan for reversal in two months. Colostomy in place08/19/2023 Assessment & Plan (11/02/2024 1:42 PM EDT): Would like to bosio possible reversal Assessment & Plan (11/25/2023 2:06 PM EDT): [...] and now has colostomy in place. Primary /30/2023 Assessment & Plan (11/02/2024 6:17 AM EDT): Please check blood pressure daily and record DASH diet Limit caffeine Take medication as directed Contact office if chest pain, pressure, dizziness, shortness of breath, swelling legs Recommend slow position changes Current meds: amlodipine Assessment & Plan (08/03/2024 7:05 AM EDT): [...] symptoms or persistently elevated BP. History of ieyvpryobce11/30/2023 Assessment & Plan (03/27/2023 3:54 PM EST): A1C 5.8 - screened for T2 DM. Patient reports he has improved his diet, increased physical activity. Patient would like to hold off on rechecking A1C due to financial reasons. Resolved Problems ProblemNoted DateDiagnosed DateResolved DateElevated PSA/11/2024 Prostate cancer nhuqhycmw23/ute non-recurrent frontal /11/2024 Assessment & Plan (05/03/2024 11:07 AM EST): Cough/Runny nose/Headache/X1+ month. Did not have ostomy reversal due to having cold like symptoms on day of surgery. Pt states surgery was concerned he would blow sutures out. Denies shortness of breath or chest pain. Will treat with Augmentin and steroids today since symptoms have been ongoing. Pre-operative lizcueuob80/11/2024 Assessment & Plan (02/11/2024 8:52 AM EDT): Is here today for presurgical clearance for Reversal of colovesical fistula. Is having presurgical labwork done tomorrow. Did not bring paperwork to OV today from surgeons office. Pt has history of HTN. Well controlled on Amlodipine. Will provide medical clearance once pre-surgical testing results are received. Upper respiratory tract rhmhznpuw51/11/2024 Assessment & Plan (02/11/2024 8:50 AM EDT): [...] without surgeon approval first. Hospital discharge follow-up Assessment & Plan (08/19/2023 3:14 PM EDT): Hospital admission for sigmoid diverticulitis with perforation - s/p colectomy and now has colostomy in place. Pt doing well. No active complaints to offer. Denies any GI symptoms. Planned for reversal for Colostomy in 2 months. Encounter for Medicare annual wellness exam/11/2024 Assessment & Plan (03/27/2023 4:03 PM EST): Patient here for medicare wellness. Reviewed medical, surgical and social hx. Denies smoking, alcohol use. Sporadically uses Marijuana Upto date on Colon Cancer Screening Refusing Flu. Patient instructed to get Shingles Vaccine. No recent falls. Steady gait. Not seeing a specialist for anything else. Mini Cog 5/5 Pain, /11/2024 Assessment & Plan (03/27/2023 3:57 PM EST): [...] will likely need multiple teeth pulled out. Family History Medical HistoryRelationNameCommentsHeart diseaseFatherStrokeFatherCancerMother RelationNameStatusCommentsFatherDeceasedMotherDeceased Social History Tobacco UseTypesPacks/DayYears UsedDateSmoking Tobacco: NeverPassive Smoke Exposure: NeverSmokeless Tobacco: Never Tobacco Cessation:Counseling Given: Not Answered Alcohol UseStandard Drinks/WeekCommentsNever0 (1 standard drink = 0.6 oz pure alcohol)caffeine: noneHumiliation, Afraid, Rape, and Kick questionnaireAnswer Date RecordedWithin the last year, have you been afraid of your partner or ex-partner?No03/27/2023Within the last year, have you been humiliated or emotionally abused in other ways by your partner or ex-partner?No03/27/2023 Within the last year, have you been kicked, hit, slapped, or otherwise physically hurt by your partner or ex-partner?No03/27/2023Within the last year, have you been raped or forced to have any kind of sexual activity by your part ner or ex-partner?No03/27/2023Social Connection and Isolation PanelAnswerDate RecordedIn a typical week, how many times do you talk on the phone with family, friends, or neighbors?Twice a week03/27/2023How often do you get together with friends or relatives?Twice a week03/27/2023How often do you attend zoroastrianism or orthodoxy services?1 to 4 times per year03/27/2023o you belong to any clubs or organizations such as zoroastrianism groups, unions, fraternal or athletic groups, or school groups?Yes03/27/2023How often do you attend meetings of the clubs or organizations you belong to?1 to 4 times per year03/27/2023re you , , , , never , or living with a partner? 03/27/2023UDIT-CAnswerDate RecordedQ1: How often do you have a drink containing alcohol?Never03/27/2023Q2: How many drinks containing alcohol do you have on a typical day when you are drinking?Patient does not drink03/27/2023Q3: How often do you have six or more drinks on one occasion?Never03/27/2023Overall Financial Resource Strain (CARDIA)AnswerDate RecordedHow hard is it for you to pay for the very basics like food, housing, medical care, and heating?Somewhat hard 03/27/2023HQ-2AnswerDate RecordedPatient Health Questionnaire-2 Score2 08/03/2024[facility] - Occupational Stress QuestionnaireAnswerDate RecordedDo you feel stress - tense, restless, nervous, or anxious, or unable to sleep at night because yourmind is troubled all the time - these days?Only a paxkyk1703/27/2023Exercise Vital SignAnswerDate Recorded On average, how many days per week do you engage in moderate to strenuous exercise (like a brisk walk)?2 days03/27/2023On average, how many minutes do you engage in exercise at this level?20 min03/27/2023Hunger Vital SignAnswerDate RecordedWithin the past 12 months, you worried that your food would run out before you got the money to buymore.Never true03/27/2023Within the past 12 months, the food you bought just didn't last and you didn't have money to get more.Never true03/27/2023RAPARE - TransportationAnswerDate RecordedIn the past 12 months, has lack of transportation kept you from medical appointments or from getting medications?No03/27/2023In the past 12 months, has lack of transportation kept you from meetings, work, or from getting things needed for daily living?No03/27/2023Housing Stability Vital SignAnswerDate RecordedIn the last 12 months, was there a time when you were not able to pay the mortgage or rent on time?No03/27/2023Number of Places Lived in the Last YearNot on file 03/27/2023In the last 12 months, was there a time when you did not have a steady place to sleep or [place] (including now)?No03/27/2023Sex and Gender InformationValueDate RecordedSex Assigned at BirthNot on fileLegal SexMale 07/10/2022 8:26 PM EDTGender IdentityNot on fileSexual OrientationNot on file Last Filed Vital Signs Vital SignReadingTime TakenCommentsBlood Iofsjcnj874/8207 1:34 PM EDT Vhibp84239/08/2025 1:08 PM YXFZgsuvbelklg00.6 ??C (97.8 ??F)11/02/2024 1:08 PM EDTRespiratory Wfdi246911/02/2024 1:08 PM EDTOxygen Cgrkrjzqyc20%11/02/2024 1:08 PM EDTInhaled Oxygen Concentration--Hisiij86 kg (169 lb 12.8 oz)11/02/2024 1:08 PM PMGWcqocu039.8 cm (5' 10 )05/03/2024 10:45 AM ESTBody Mass Index24.36 05/03/2024 10:45 AM EST Plan of Treatment Health MaintenanceDue DateLast DoneCommentsCT Hegkhdtcequu32/15/1959FIT-DNA 1960FIT1960FOBT1960 6109Hxyghpestadhg21/15/1959Pneumococcal Vaccine: 65+ Years (1 of 1 - PCV)2008Influenza Vaccine (#1)2024 Xzgovbfmwjq11, 01/09/2024, 04/28/2020olorectal Cancer Euvkvdpvv23/13/2034 Insurance Care Teams Team MemberRelationshipSpecialtyStart DateEnd Date Varghese Carrizales MD PCP - GeneralFamily Medicine01/21/24 Netta Dorman NP Nurse PractitionerFamily Medicine01/21/24
--- OUTSIDE RECORDS SUMMARY | 2025-04-27 09:43 | XMS_ITS | Patient Health Record ---
Author Organization [facility] [place] Address [address] [place] [address] Care Team Providers Care Environmental Health Manager Name Role Phone Shaikh Manrique MD Primary Care Provider Unavaila ble Allergies No Known Allergies Reason For Referral No Information Medications Medication SIG (Take, Route, Frequency, Duration) Notes Start Date End Date Status Ciprofloxacin HCl 500 MG Oral; Duration: 10 Days UnknownNorvascActivemetroNIDAZOLE 500 MGTAKE 1 TABLET BY MOUTH EVERY 12 HOURS. do not consume with alcohol Oral; Duration: 10 DaysUnknown Social History Tobacco Use: Social History Observation Description Date Details (start date - stop date) Current Smoker NA - NA Tobacco Use/Smoking Question Answer Notes Patient is a current smoker Plan Of Treatment No Information Insurance Providers Payer Name Payer Address Payer Phone Subscriber Number Group Number Insured Name Patient Relationship to Insured Coverage Start Date Coverage End Date MEDICARE [place] [address] [place] [address] [id number] Jennifer Arzate - patient is the [id number] 1999MEDICAID [facility] [address] OFFICE OF [place], [place] [id number], JohnSelf - patient is the [id number] 2021 Medical (General) History Medical History History ICD Code Abdominal pain R10.9 Arthritis rectal bleedingumbilical herniah/o colonoscopy w/ polypectomy: 7mm polyp removed HypertensiondiverticulosisSurgical History Surgery Date(Month/Year) robotic repair of umbilical hernia with mesh with Dr. Alvarez 12/03/2022 bilateral inguinal hernia repair
--- OUTSIDE RECORDS SUMMARY | 2025-04-27 09:43 | XMS_ITS | Clinical Summary ---
Author Organization [employer] [facility] tem Address [id number] [address] [place] [address] Care Team Providers Care Seo Specialist Name Role Phone Netta Dorman PEANUT SORTER-LUMBER SORTER MACHINE Primary Care Pr ovider Allergies No known active allergies Medications MedicationSigDispense QuantityRefillsLast FilledStart DateEnd DateStatus amLODIPine (NORVASC) 10 mg tablet Indications:hypertensionTake 1 tablet (10 mg total) by mouth in the morning. Indications: high blood pressure.Active acetaminophen (TYLENOL EXTRA STRENGTH) 500 mg tablet Indications:fever,painTake 2 tablets (1,000 mg total) by mouth every 6 (six) hours Indications: fever, pain. 30 tablet 07/27/2023ctive Active Problems ProblemNoted DateDiagnosed DateColostomy jdvkuo9111/23/2023arastomal hernia without obstruction or /28/2024History of ytgskdaimyh09/28/2024 Perforated bowel07/19/2023 Immunizations No known immunizations Family History Medical HistoryRelationNameCommentsBlood ClotsFatherHeart diseaseFatherCancer MotherAnesthesia problemsNeg HxRelationNameStatusCommentsBrotherAliveFather DeceasedMotherDeceased Social History Tobacco UseTypesPacks/DayYears UsedDateSmoking Tobacco: NeverSmokeless Tobacco: NeverAlcohol UseStandard Drinks/WeekCommentsNot Currently0 (1 standard drink = 0.6 oz pure alcohol)AHC UtilitiesAnswerDate RecordedIn the past 12 months has the VHX, gas, oil, or water tibdit threatened to shut off services in your home?No03/24/2024AUDIT-CAnswerDate RecordedQ1: How often do you have a drink containing alcohol?Never07/20/2023Q2: How many drinks containing alcohol do you have on a typical day when you are drinking?Patient does not drink07/20/2023Q3: How often do you have six or more drinks on one occasion?Never07/20/2023HQ-2 AnswerDate RecordedTotal Yqxuy802RAPARE - TransportationAnswerDate RecordedIn the past 12 months, has lack of transportation kept you from medical appointments or from getting medications?No07/20/2023In the past 12 months, has lack of transportation kept you from meetings, work, or from getting things needed for daily living?No07/20/2023Housing InstabilityAnswerDate RecordedAre you worried or concerned that in the next two months you may not have stable housing that you own, rent or stay in as a part of a household?No07/20/2023 ChildcareAnswerDate QfmeudneTkljtxnwhFxzujbh13/23/2020EmploymentAnswerDate ZwgsgucfCbqzvczlcrIsbhhxy78/23/2020Hunger ScreeningAnswerDate RecordedWithin the past 12 months we worried whether our food would run out before we got money to buy more.Sometimes True02/06/2024Within the past 12 months the food we bought just didn't last and we didn't have money to get more.Sometimes True02/06/2024 Purpose - LifeAnswerDate RecordedPurpose and direction in emgnEcsvvxo16/26/2021 Sex and Gender InformationValueDate RecordedSex Assigned at BirthNot on file Legal JlrEocz1412/01/2014 11:33 AM EDTGender IdentityNot on fileSexual Orientation Not on file Last Filed Vital Signs Vital SignReadingTime TakenCommentsBlood Zunzqbpp026/8802/12/2024 6:00 AM EDT Wigtb59955/17/2024 6:00 AM CBMCqmsfthyifw24.2 ??C (97.2 ??F)02/12/2024 6:00 AM EDTRespiratory Djpl9254 6:00 AM EDTOxygen Cyyohldimz63%02/12/2024 6:00 AM EDTInhaled Oxygen Concentration--Ulxjvq58.9 kg (169 lb 8.5 oz)02/12/2024 6:00 AM JMHKpaaku722.8 cm (5' 10 )02/06/2024 11:19 AM EDTBody Mass Index24.33 02/06/2024 11:19 AM EDT Plan of Treatment Health MaintenanceDue DateLast DoneCommentsDTaP,Tdap and Td Vaccines (1 - Tdap) 1977Zoster (Shingles) Vaccine (1 of 2)2008Fall Risk Screening 2023epression Gpjtgviqv99OVID-19 Vaccine ( - 2024- season)/, 07/14/2020Influenza Mnalsgw0912/27/2024dult BMI Odozjrqzt94Tobacco Xxhttxztf734Colonoscopy /, 4RSV ( or age 60+ yrs) (1 - 1-dose 75+ series)2033 Goals GoalPatient Goal TypeAssociated ProblemsRecent ProgressPatient-Stated?Author Return to home with home care Tyesha Madrid, GU[place] Note: Evaluation of progress towards goal: Medical Devices Not on file Procedures Procedure NamePriorityDate/TimeAssociated DiagnosisCommentsPROVATION COLONOSCOPY Saiyruh8301/09/2024 10:45 AM EDT from Last 3 Months or Most Recently Relevant to Health Maintenance Results * Colonoscopy Report (01/09/2024 10:45 AM EDT)Specimen (Source)Anatomical Location / LateralityCollection Method / VolumeCollection TimeReceived Time Narrative SYSTEMGENERATED, DOCUMENTATION - 01/09/2024 10:45 AM EDT This order has been auto-finalized for image and report archival in PACs. *For full report details, please reach out to your physician. ??This image is visible to you in MyChart.* Authorizing ProviderResult TypeResult StatusRamichelle Boss MDIMG OR IMG ORDERABLES Final Result from Last 3 Months or Most Recently Relevant to Health Maintenance Insurance Advance Directives * Full Code (Latest Code Status on File) Date ActivatedDate InactivatedComments07/20/2023 12:44 AM07/27/2023 12:29 AM Care Teams Team MemberRelationshipSpecialtyStart DateEnd Date Netta Dorman, PEANUT SORTER-LUMBER SORTER MACHINE [address] [place] [address] PCP - GeneralNurse Vegrzhqoiuwy12/11/24
--- OUTSIDE RECORDS SUMMARY | 2025-04-27 09:43 | XMS_ITS | Clinical Summary ---
Author Organization [facility] Address [address] [place] [address] Care Team Providers Care Pipe Fitter Name Role Phone Pio Isaacs MD Unavailable [phone] Yissel Arevalo CNP Primary Care Provider [phone] Allergies Active AllergyReactionsCriticalityNoted DateCommentsRed Food Color (Bulk)Other: See Ajuzvbsl64/25/2025 Rectal bleeding per patient Medications MedicationSigDispense QuantityRefillsLast FilledStart DateEnd DateStatus amLODIPine (NORVASC) 10 mg tablet Take 10 mg by mouth once daily.04/06/2024ctive docusate sodium (STOOL SOFTENER PO) Take by mouth.Active CALCIUM-VITAMIN D3 ORAL Take by mouth.Active Encounters DateTypeDepartmentCare RkkfYbwuyvxyidc84/21/2025 1:45 PM EDTOffice Visit Radiation Oncology [address] [place] [address] [place] [address] Kwasi Rivera MD Malignant neoplasm of prostate (HCC) (Primary Dx)from Last 3 Months Family History Medical HistoryRelationCommentsCancerMaternal GrandmotherCancerMotherRelation StatusCommentsMaternal GrandmotherDeceasedMotherDeceased Social History Tobacco UseTypesPacks/DayYears UsedDateSmoking Tobacco: FormerCigarettes Smokeless Tobacco: Never Tobacco Cessation:Counseling Given: Not Answered Alcohol UseStandard Drinks/WeekCommentsNot Currently0 (1 standard drink = 0.6 oz pure alcohol)PHQ-2AnswerDate RecordedPHQ-2 /17/2025Area Deprivation IndexAnswerDate RecordedNational Score (1-100), lower number is lower risk74 10/20/2024State Score (1-10), lower number is lower nzsi54510/20/2024Data from: https://www.neighborhoodatlas.[facility]/. Last address used for hvojkxsstvq[address]10/20/2024Sex and Gender InformationValueDate RecordedSex Assigned at BirthNot on fileLegal SliZubu1110/01/2024 2:42 PM EDT Gender IdentityNot on fileSexual OrientationNot on file Last Filed Vital Signs Vital SignReadingTime TakenCommentsBlood Vxrhecuu890/9302/15/2025 1:52 PM EDT Itmmf314802/15/2025 1:52 PM HNLZtjmtzaxvcs56.1 ??C (96.9 ??F)02/15/2025 1:52 PM EDTRespiratory Aibz4608 1:52 PM EDTOxygen Cmtunsxtrd88%02/15/2025 1:52 PM EDTInhaled Oxygen Concentration--Rughdq51.7 kg (175 lb 11.3 oz)02/15/2025 1:52 PM EDTHeight--Body Mass Index-- Plan of Treatment DateTypeDepartmentCare Team (Latest Contact Info)Urlxtfnnvee96/21/2026 9:00 AM EDTOffice Visit [facility] [address] [place] [address] [place] [address] PSA lab08/23/2025 1:30 PM EDTOffice Visit Radiation Oncology [address] [place] [address] [place] [address] Kwasi Rivera MD [address] [place] [address] [place] [address] 6 month follow up08/23/2025 2:00 PM EDTVisit (SP) Office Hematology/Oncology [address] [place] [address] [place] [address] Nicole Kapadia APRN.SUPERVISING ARCHITECT [address] [place] [address] [place] [address] SurvivorshipHealth MaintenanceDue DateLast DoneCommentsAbdominal Aortic Aneurysm Oqnilsjxj24/15/1959Anxiety Fgwjyjvil58/15/1977Depression Jpqrpxqba22/15/1977 Hepatitis C Ggibeaxfb82/15/1977DTaP,Tdap,Td Vaccine (1 - Tdap)1977Lipid Vvceuxysw06/15/1994CT Mzbkkyfgjdyc18/15/2004Cologuard (FIT-DNA)2003Fecal Occult Blood06/12/20031907Djhklczrwvurk87/15/2004Pneumococcal Vaccine: 50+ (1 of 1 - PCV)2008Shingrix Vaccine (1 of 2)2008dvance Directive Discussion 04/28/2024Medicare Annual Wellness Visit5Covid-19 Vaccine ( season)504/, 07/14/2020Influenza Vaccine (#1)2024 Bbiaxnabshq82/13/743828/olorectal Cancer Ftspbpxfk19/13/2025Diabetes Ivjrgyepe58/, 07/26/2023, 07/25/2023, Additional history exists Prostate Cancer Screening Flqznrdpyn75RSV Vaccine (1 - 1-dose 75+ series)2033 Procedures Procedure NamePriorityDate/TimeAssociated DiagnosisCommentsPSA/PROSTSPECAG DIAG Safdvoi7002/08/2025 9:03 AM EDT Malignant neoplasm of prostate (HCC) from Last 3 Months Results * PROSTATE-SPECIFIC ANTIGEN DIAGNOSTIC (02/08/2025 9:03 AM EDT)ComponentValueRef RangeTest MethodAnalysis TimePerformed AtPathologist SignaturePSA0.15<2.60 ng/mL02/08/2025 6:41 PM EDTCLEVELAND CLINIC MAIN LABComment:Total PSA test methodology used is the Electrochemiluminescence Immunoassay by [employer]. Total PSA values by differing methodologies cannot be interchanged.Specimen (Source)Anatomical Location / LateralityCollection Method / VolumeCollection TimeReceived TimeBloodBLOOD SPECIMEN / Unknown Venipuncture / Uebjzwb6302/08/2025 9:03 AM EDT1 9:03 AM EDT Narrative Authorizing ProviderResult TypeResult StatusG Du Rivera MDLABORATORYFinal ResultPerforming OrganizationAddressCity/State/ZIP CodePhone Number [facility] [address] [place] [address], [place] from Last 3 Months Insurance Care Teams Team MemberRelationshipSpecialtyStart DateEnd Date Yissel Arevalo, SUPERVISING ARCHITECT [address] [place] [address] PCP - GeneralFamily Medicine11/05/24 Pio Isaacs MD [address] [place] [address] Urology10/01/24
--- OUTSIDE RECORDS SUMMARY | 2025-04-27 09:47 | XMS_ITS | CCD ---
Author Organization [facility] CliniSyut Care Team Providers Care Operations Plant Attendant Name Role Phone HOUSE, DR LEE Primary Care Unavailable MUKUND ., MARCO A LECHUGA Consulting Unavailabl e DIAB ., ROXANNE Attending Unavailable DIAB ., ROXANNE Admitting Unavailable JAHAIRA LUNDBERG Consulting Unavailable NO PCP, NO PCP Primary Care Unavailable All SANCHEZ, Varghese Primary Care Provider Lakia PERKINS, Frida Unavailable CRUZ YOUSIF Attending Unavailab le NO PCP, NO PCP Primary Care Unavailable EVAN LOUIS Consulting Unavailable EVAN LOUIS Admitting Unavailable MARYJANE BASEL Attending Unavailable VARGHESE DEL CID Referring Unavailable VARGHESE DEL CID Primary Care Unavailable EVAN LOUIS Attending Unavailable VARGHESE DEL CID Referring Unavailable VARGHESE DELC ID Primary Care Unavailable MACY, ABDIRASHID M Attending Unavailable VARGHESE DEL CID Referring Unavailable VARGHESE DEL CID Primary Care Unavailable MACY, ABDIRASHID M Referring Unavailable VARGHESE DEL CID Primary Care Unavailable MACY, ABDIRASHID M Attending Unavailable MARIANIO, ABDIRASHID M Referring Unavailable VARGHESE DEL CID Primary Care Unavailable MACY, ABDIRASHID M Referring Unavailable VARGHESE DEL CID Primary Care Unavailable BOSIO, ABDIRASHID M Admitting [...] Admitting Unavailable BOSIO, ABDIRASHID M Attending Unavailable FAWWAD, ORTIZ Primary Care Unavailable VAL TIWARI Attending Unavailable DORMAN, FRIDA N Primary Care Unavaila marcella Del Cid MD, Varghese Primary Care Provider All SANCHEZ, Varghese Primary Care Provider Dorman FREIGHT LOADING SUPERVISOR-FILM SORTER, Frida N Primary Care Pr ovider Hilaria SANCHEZ, Ortiz Primary Care Provider [phone] Lakia CREDIT CARD CLERK, Frida Unavailable [phone] YISSEL AREVALO Primary Care Physician Gi John Attending Unavailable Clarissa LAWRENCE Attending Unavailable Clarissa LAWRENCE Admitting Unavailable Clarissa LAWRENCE Attending Unavailable Clarissa LAWRENCE Attending Unavailable YISSEL AREVALO Referring Unavailable Clarissa LAWRENCE Attending Unavailable Clarissa LAWRENCE Attending Unavailable Clarissa LAWRENCE Admitting Unavailable Clarissa LAWRENCE Attending Unavailable Melinda SANCHEZ, Clarissa Saldivar Unavailable [phone] Yissel Arevalo CNP Primary Care Provider YISSEL AREVALO Attending Unavailable YISSEL AREVALO Attending Unavailable SHAIKH MANRIQUE Attending Unavailable DORMAN, BRITTANY Attending Unavailabl e DORMAN, FRIDA Attending Unavailabl e Dorman FREIGHT LOADING SUPERVISOR-FILM SORTER, Frida N Primary Care Pr ovider Clarissa LAWRENCE Attending Unavailable Clarissa LAWRENCE Attending Unavailable Clarissa LAWRENCE Attending Unavailable Clarissa LAWRENCE Attending Unavailable Jedhanahi CREDIT CARD CLERK-C, Yissel Cárdenas Primary Care Provider [phone] Mickey CREDIT CARD CLERK-C, Yissel Cárdenas Attending Provider [phone] YISSEL AREVALO Primary Care Unavailable YISSEL AREVALO Primary Care Unavailable Kwasi SANDOVAL Referring Unavailable YISSEL AREVALO Primary Care Unavailable Kwasi SANDOVAL Attending Unavailable Kwasi SANDOVAL Referring Unavailable AICHHOLZ, YISSEL AMNA Primary Care Unavailable AICHHOLZ, YISSEL AMNA Primary Care Unavailable AICHHOLZ, YISSEL AMNA Primary Care Unavailable CHRISTOPHER CASTANEDA Attending Unavailable Kwasi SANDOVAL Attending Unavailable AICHHOLZ, YISSEL AMNA Primary Care Unavailable Kwasi SANDOVAL Referring Unavailable AICHHOLZ, YISSEL AMNA Primary Care Unavailable CLARISSA LAWRENCE Referring Unavailable Kwasi SANDOVAL Attending Unavailable AICHHOLZ, YISSEL AMNA Primary Care Unavailable AICHHOLZ, YISSEL AMNA Primary Care Unavailable AICHHOLZ, YISSEL AMNA Primary Care Unavailable Kwasi SANDOVAL Attending Unavailable Kwasi SANDOVAL Referring Unavailable AICHHOLZ, YISSEL AMNA Primary Care Unavailable AICHHOLZ, YISSEL AMNA Primary Care Unavailable AICHHOLZ, YISSEL AMNA Primary Care Unavailable AICHHOLZ, YISSEL ANMA Primary Care Unavailable Kwasi SANDOVAL Attending Unavailable Kwasi SANDOVAL Attending Unavailable AICHHOLZ, YISSEL AMNA Primary Care Unavailable Kwasi SANDOVAL Attending Unavailable Kwasi SANDOVAL Referring Unavailable AICHHOLZ, YISSEL AMNA Primary Care Unavailable AICHHOLZ, YISSEL AMNA Primary Care Unavailable Kwasi SANDOVAL Attending Unavailable Kwasi SANDOVAL Referring Unavailable AICHHOLZ, YISSEL AMNA Primary Care Unavailable Kwasi SANDOVAL Attending Unavailable AICHHOLZ, YISSEL AMNA Primary Care Unavailable AICHHOLZ, YISSEL AMNA Primary Care Unavailable AICHHOLZ, YISSEL AMNA Primary Care Unavailable AICHHOLZ, YISSEL AMNA Primary Care Unavailable AICHHOLZ, YISSEL AMNA Primary Care Unavailable Kwasi SANDOVAL Referring Unavailable AICHHOLZ, YISSEL AMNA Primary Care Unavailable AICHHOLZ, YISSEL AMNA Primary Care Unavailable Kwasi SANDOVAL Attending Unavailable AICHHOLZ, YISSEL AMNA Primary Care Unavailable AICHHOLZ, YISSEL AMNA Primary Care Unavailable AICHHOLZ, YISSEL AMNA Primary Care Unavailable AICHHOLZ, YISSEL AMNA Primary Care Unavailable Kwasi SANDOVAL Attending Unavailable AICHHOLZ, YISSEL AMNA Primary Care Unavailable AICHHOLZ, YISSEL AMNA Primary Care Unavailable AICHHOLZ, YISSEL AMNA Primary Care Unavailable AICHHOLZ, YISSEL AMNA Primary Care Unavailable AICHHOLZ, YISSEL AMNA Primary Care Unavailable AICHHOLZ, YISSEL AMNA Primary Care Unavailable AICHHOLYamel, YISSEL AMNA Primary Care Unavailable AICHHOLYamel, YISSEL AMNA Primary Care Unavailable Kwasi SANDOVAL Referring Unavailable AICHHOLZ, YISSEL AMNA Primary Care Unavailable AICHHOLZ, YISSEL AMNA Primary Care Unavailable Kwasi SANDOVAL Attending Unavailable AICHHOLZ, YISSEL AMNA Primary Care Unavailable AICHHOLZ, YISSEL AMNA Primary Care Unavailable AICHHOLZ, YISSEL AMNA Primary Care Unavailable Kwasi SANDOVAL Attending Unavailable AICHHOLZ, YISSEL AMNA Primary Care Unavailable AICHHOLZ, YISSEL AMNA Primary Care Unavailable Allergies Allergy ClassificationReported Allergen(s)Allergy TypeDate of OnsetReaction(s) Facility (3 sources)No Known Medication Allergies; Translations: [No Known Medication Allergies]Propensity to adverse reactions (disorder)[facility] Repository (20 sources)Red Food Color (Bulk); Translations: [RED FOOD COLOR (BULK)] Propensity to adverse reactions to [id number]: See [facility] (5 sources)Red Dye #40 (Allura Red)Propensity to adverse [id number] [facility] Work Phone: Medications Current Medications MedicationDrug Class(es)DatesSig (Normalized)Sig (Original)acetaminophen 500 mg oral tablet (11 sources)Start: 31-26-8404jtxq 2 tablets by mouth every six hours acetaminophen (TYLENOL EXTRA STRENGTH) 500 mg tablet Indications: fever , pain Take 2 tablets (1,000 mg total) by mouth every 6 (six) hours Indications: fever, pain. 30 tablet 07/27/2023 ActiveamLODIPine 10 mg oral tablet (20 sources)Dihydropyridine Calcium Channel BlockerStart: 11-25-2023 End: 62-81-3322ymwr 1 tablet by mouth once dailyAmlodipine 10 mg tablet Active 10 MG PO Daily January 21, 2025 12:00am Complies with drug therapy amoxicillin 875 mg / clavulanate 125 mg oral tablet (2 sources)Penicillin-class AntibacterialStart: 05-03-2024 End: 54-68-3917sspx 1 tablet by mouth in the morningamoxicillin-clavulanate (Augmentin) 875-125 MG tablet Indications: Upper respiratory tract infection, unspecified type Take 1 tablet (875 mg) by mouth in the morning and 1 tablet (875 mg) before bedtime. Do all this for 10 days. 20 tablet 05/03/2024 05/13/2024 ActiveCALCIUM-VITAMIN D3 ORAL (9 sources)CALCIUM-VITAMIN D3 ORAL Take by mouth. Activeciprofloxacin 500 mg oral tablet (1 source)Quinolone AntimicrobialStart: 08-23-2024 End: 69-34-0078Krvhq 500 mg Tab 500 mg = 1 tab(s), Oral, BID, start 3 days prior to procedure, X 7 day(s), # 14 tab(s), Refills(s) 0, Pharmacy: [facility], 175, cm, 08/23/24 14:29:00 EDT, Height/Length Dosing, 79, kg, 08/23/24 14:29:00 EDT, Weight Dosing Start Date: 08/23/24 Stop Date: 08/30/24 Status: Ordered Quantity: 14.0 Unit: tab(s) Repeat number: 1Colace (20 sources)Start: 61-44-8635Watcgq See Instructions, Oral BID Start Date: 08/23/24 Status: Ordered Repeat number: 1docusate sodium (STOOL SOFTENER PO) Take by mouth. Activefluticasone propionate 0.05 mg/actuat metered dose nasal spray (20 sources)CorticosteroidStart: 28-21-9974noyu 1 spray(s) nasal route once dailyFluticasone Propionate (Flonase Allergy Relief) 50 mcg/actuation spray,suspension Active 2 SPRAY INTRANASAL Daily January 21, 2025 12:00am administer into each nostril Complies with drug therapyStart: 02-05-2024 End: 32-12-2896vaga 1-2 spray(s) nasal route once dailyfluticasone (Flonase) 50 MCG/ACT nasal spray Indications: Viral URI Administer 1-2 sprays into each nostril Daily Shake gently. Before first use, prime pump. After use, clean tip and replace cap. 16 g 2 05/03/2024 05/03/2025 ActivemethylPREDNISolone (2 sources)CorticosteroidStart: 05-03-2024 End: 15-28-9942nesxlxACHVCLTwnves (Medrol Dospak) 4 MG tablets Indications: Upper respiratory tract infection, unspecified type Follow schedule on package instructions 21 tablet 05/03/2024 05/10/2024 Activesennosides, halfway 8.6 mg oral tablet (18 sources)Start: 10-21-2023 End: 86-83-2990butq 2 tablets by mouth in the morningsenna (Senokot) 8.6 MG tablet Indications: Chronic idiopathic constipation Take 2 tablets (17.2 mg)by mouth in the morning and 2 tablets (17.2 mg) before bedtime. 360 tablet 1 02/05/2024 08/03/2024 ActiveStart: 07-26-2023 End: 94-47-4034eerj 1 tablet by mouth in the morning, then take 1 tablet by mouth at bedtimesenna (SENOKOT) 8.6 mg tablet Take 1 tablet (8.6 mg total) by mouth in the morning and 1 tablet (8.6 mg total) before bedtime. Do all this for 14 days. 28 tablet 07/26/2023 08/09/2023 Active Completed/Discontinued Medications MedicationDrug Class(es)DatesSig (Normalized)Sig (Original)oxyCODONE hydrochloride 5 mg oral tablet (7 sources)Opioid AgonistStart: 07-26-2023 End: 01-08-8894fwld 1 tablet by mouth every six hours as needed for pain oxyCODONE (ROXICODONE) 5 mg immediate release tablet Indications: Post-op pain Take 1 tablet (5 mg total) by mouth every 6 (six) hours as needed for pain for up to 12 doses. Max Daily Amount: 20 mg 12 tablet 07/26/2023 12/26/2023 Discontinued (Therapy completed) Problems Active Problems Problem ClassificationProblemDateDocumented DateEpisodic/ChronicAbdominal hernia (20 sources)Parastomal hernia; Translations: [Parastomal hernia without obstruction or gangrene]Onset: 357329-18-7239QfysvnqeQpvmxj of prostate (20 sources)Malignant neoplasm of prostate; Translations: [Malignant tumor of prostate]Onset: 57-39-3477HprzlemYrxpwlytqkpnxs and diverticulitis (20 sources)Diverticulitis of large intestine without perforation or abscess without bleeding; Translations: [Perforation of sigmoid colon due to diverticulitis]Onset: 035033-61-7223OqfomilLgmgmgkdl hypertension (20 sources)Essential hypertension; Translations: [Essential (primary) hypertension]Onset: 079541-01-6661MuytowhWtlqajcpaxmfw symptoms and ill- defined conditions (20 sources)Asymptomatic microscopic hematuria; Translations: [Asymptomatic microscopic hematuria]Onset: 006136-08-3429NypzcltfUoolrgzalne of prostate (14 sources)Benign prostatic hyperplasia; Translations: [Benign prostatic hyperplasia without lower urinary tract symptoms]Onset: ChronicOther gastrointestinal disorders (20 sources)Colostomy present; Translations: [Colostomy status]Onset: 08-19-2023 29-21-4413AstkousEvqhp gastrointestinal disorders (20 sources)Chronic idiopathic constipation; Translations: [Chronic idiopathic constipation]Onset: 581552-46-8671IxkjenmIkwgc male genital disorders (6 sources)Swelling of -90-9537UsozqhbpHayqy male genital disorders (2 sources)Hydrocele of testis; Translations: [Hydrocele, unspecified]Onset: 73-86-3861AvrkxtezUboiw male genital disorders (8 sources)Disorder of male genital organ; Translations: [Hydrocele, unspecified]Onset: 692763-91-4145NgdpahkhFppwd nervous system disorders (20 sources)Paresthesia of hand ; Translations: [Anesthesia of skin]Onset: 957334-42-8248XzbcpexdQaipmpay codes; unclassified (1 source)Pain, unspecified; Translations: [Pain, unspecified]Onset: 07-20-2023 EpisodicResidual codes; unclassified (20 sources)H/O: endocrine disorder; Translations: [Personal history of other specified conditions]Onset: 603102-45-4326EqzigsqgWefggrvcb-ormeojx disorders (1 source)Nicotine dependence, cigarettes, uncomplicated; Translations: [NICOTINE DEPEND CIGARETTES UNCOMP]Onset: 06-54-5306ZfeskhjXcuygjeinpav (1 source)Establish CareOnset: 66-44-7205Zvtnfvphxvxn (1 source)New PatientOnset: 03-45-8339Vicwbshkfsgk (1 source)Post-opOnset: 15-92-3534Qevubcitjzsg (1 source)63 yo M Cipriano Arzate 1960 . At [place] ER abd pain since 9am. CT perforated sigmoid colon zosyn started. Spoke with Dr Missy FELIX to ER NPO no NG tube needed.Onset: 51-00-0255Luwdmet tract infections (20 sources)Cystitis; Translations: [Cystitis, unspecified without hematuria] Onset: 165416-54-7005Lftvvnci Past or Other Problems Problem ClassificationProblemDateDocumented DateEpisodic/ChronicAbdominal pain (5 sources)Right lower quadrant pain; Translations: [Abdominal pain]Onset: 47-67-3815LmooniupKpnbenq dysrhythmias (1 source)Tachycardia, unspecified; Translations: [Tachycardia, unspecified] Onset: 68-74-2700ZfpmjdwuRnnuzshoy of teeth and jaw (20 sources)Toothache; Translations: [Other specified disorders of teeth and supporting structures]Onset: 03-27-2023 Resolved: 360969-36-1271TljmrowsMlxd disorders (20 sources)Mood disordersOnset: 07-20-2023 Resolved: Other aftercare (20 sources)Post-discharge follow-up; Translations: [Encounter for follow-up examination after completed treatment for conditions other than malignant neoplasm]Onset: 08-19-2023 Resolved: 874154-78-4774TbwfbtudKzjfe gastrointestinal disorders (1 source)Perforation of intestine (nontraumatic); Translations: [Perforation of intestine (nontraumatic)]Onset: 31-63-0826WnhpstswAfjmf gastrointestinal disorders (14 sources)Perforation of intestine; Translations: [Perforation of intestine (nontraumatic)]Onset: 147801-99-8034RozafvdbXajwc gastrointestinal disorders (8 sources)H/O: Disorder; Translations: [Personal history of other diseases of the digestive system]Onset: 822636-25-0473NdxhyfanXvico nervous system disorders (1 source)Other acute postprocedural pain; Translations: [Other acute postprocedural pain]Onset: 73-71-5331HabmnfquGmlfz screening for suspected conditions (not mental disorders or infectious disease) (20 sources)Patient encounter status; Translations: [Encounter for screening for malignant neoplasm of prostate]Onset: 08-03-2024 Resolved: 728274-03-6202ZmwwckeeIxoqp upper respiratory infections (20 sources)Viral upper respiratory tract infection; Translations: [Acute upper respiratory infection, unspecified]Onset: 02-05-2024 Resolved: 088508-01-6505Ikjjrwnc Results Test NameValueInterpretationReference RangeFacilityCNOVon 84-70-9585YKGDKuahye Visit (RADTSA) CIPRIANO ARZATE ([id number]) 1960 M Date Time Provider Department 02/15/25 1:45 PM Kwasi SANDOVAL During your visit today, we recorded the following information about you: Temperature Pulse Respiration Blood pressure 96.9 degrees 92/minute 18/minute 149/93 Weight 79.7 kg Kwasi Sandoval MD 02/23/2025 3:13 PM Signed Radiation Oncology - Follow Up Note PATIENT NAME: Cipriano Arzate PATIENT DIAGNOSIS: Prostate adenocarcinoma, initial PSA 15.33, biopsy Archana score 3 + 4 = 7 (grade group 2), clinical stage T2a, N0, M0, stage IIB [T1-T2, N0, M0, PSA <20, GG 2] (AJCC 8th ed.), s/p biopsy. NCCN Risk Group: Unfavorable Intermediate Risk Group RADIATION SUMMARY: DATES OF TREATMENT: 12/08/24-01/17/25 AREA TREATED: Pelvis/ Prostate DELIVERED DOSE: PelvisProstate : 7,000 cGy in 28 fractions, 3 Parker, IMRT, 10MV with daily CBCT TOTAL: 7,000 cGy in 28 fractions ELAPSED TIME: 40 days. INTERVAL HISTORY: The patient presents for routine follow-up after recent completion of prostate radiation. He states he is doing fairly well. Denies any acute issues including dysuria hematuria or significant diarrhea. Energy level improving. PSA HISTORY: PSA (ng/mL) Date Value 02/08/2025 0.15 ALLERGIES Allergen Reactions Red Food Color (Bul* Other: See Comments Rectal bleeding per patient CALCIUM-VITAMIN D3 ORAL Take by mouth. amLODIPine (NORVASC) 10 mg tablet Take 10 mg by mouth once daily. docusate sodium (STOOL SOFTENER PO) Take by mouth. REVIEW OF SYSTEMS: D/N = 4-6/1-2 Hematuria: none Dysuria: none Incontinence: none Urgency: none Medications to aid urination: n Bowel movement frequency: 1/day Bowel movement quality: normal Blood per rectum: none PHYSICAL EXAM: BP 149/93 Pulse 92 Temp 36.1 ?C (96.9 ?F) Resp 18 Wt 79.7 kg (175 lb 11.3 oz) SpO2 97% KPS: 100 General Appearance: Alert and oriented. No acute distress. ASSESSMENT/PLAN: Prostate adenocarcinoma, initial PSA 15.33, biopsy Willard score 3 + 4 = 7 (grade group 2), clinical stage T2a, N0, M0, stage IIB [T1-T2, N0, M0, PSA <20, GG 2] (AJCC 8th ed.), s/p biopsy. NCCN Risk Group: Unfavorable Intermediate Risk Group Overall doing well after recent completion of radiation. He has also had ADT initiated due to unfavorable intermediate risk presentation. He has had good initial PSA response. No significant posttreatment problems. Recommend continued surveillance with PSA in 6 months. Signed by: Kwasi Sandoval MD cc: Yissel Arevalo, FILM SORTER ([facility]) [address] [place] [address] Allison Anglin RN 02/23/2025 3:13 PM Signed MANUEL 15 Allison Hart RN Referring Provider: Kwasi SANDOVAL [[id number]] Allergies As of Date: 02/15/2025 Noted Allergy Reaction RED FOOD COLOR (BULK) 10/20/2024 14 - Other: See Comments Comments: Rectal bleeding per patient Date Reviewed: 02/15/2025 Reviewed by: Allison Hart GUERO - Fully Assessed Reason for Visit: Prostate Cancer [590] Primary Visit Diagnosis:Malignant neoplasm of prostate (HCC) [C61] Order(s):PROSTATE-SPECIFIC ANTIGEN DIAGNOSTIC [SQPSA] Order #: [id number] FUTURE Prescriptions as of 02/23/2025 - CALCIUM-VITAMIN D3 ORAL Take by mouth. - amLODIPine (NORVASC) 10 mg tablet Take 10 mg by mouth once daily. - docusate sodium (STOOL SOFTENER PO) Take by mouth. Problem List As Of Date: 02/15/2025 (None) Disposition: Return in about 6 months (around 08/16/2025). Follow-up and Disposition History for Encounter Date Provider Department Center 02/15/2025 [id number] SANDOVAL Encounter Status:Closed by Kwasi SANDOVAL on 02/23/25[facility] 47-00-6324Dodphnwg specific Ag [Mass/Vol]0.15 ng/mL Normal<2.60[facility] on above:Order Comment: Specimen Type: BLOOD SPECIMENOrdering Facility: [facility] Address:[address] [place], [place] [address]Result Comment: Total PSA test methodology used is the Electrochemiluminescence Immunoassay by [employer]. Total PSA values by differing methodologies cannot be interchanged.Performed By: #### [id number] ####[facility] MAIN LABCLIA [id number] [address] STATES OF AMERICACNOVon 98-99-7615XINJSxhrkp Visit (RADTSA) CIPRIANO ARZATE ([id number]) 1960 M Date Time Provider Department 01/17/25 1:45 PM CHRISTOPHER CASTANEDA During your visit today, we recorded the following information about you: Temperature Pulse Respiration Blood pressure 97.7 degrees 93/minute 16/minute 147/87 Weight 78.3 kg Christopher Castaneda MD 01/31/2025 10:41 PM Signed Radiation Oncology - On Treatment Review (OTR) Note PATIENT NAME: Cipriano SPENCE DIAGNOSIS: Prostate adenocarcinoma, initial PSA 15.33, biopsy Willard score 3 + 4 = 7 (grade group 2), clinical stage T2a, N0, M0, stage IIB [T1-T2, N0, M0, PSA <20, GG 2] (AJCC 8th ed.), s/p biopsy. NCCN Risk Group: Unfavorable Intermediate Risk Group COURSE: definitive Current dose: 7000 cGy in 28 fx Planned dose: 7000 cGy in 28 fx SUBJECTIVE: Tolerating XRT well and does note some mild burning/discomfort urination with no nocturia. He reports regular bowel movements without diarrhea or nausea and does endorse fatigue with stable appetite and hydration and weight. PHYSICAL EXAM: KPS: 90 General Appearance: Alert and oriented. No acute distress. IMAGING/LAB RESULTS: None TOXICITY ASSESSMENT (CTC v4.0): Fatigue:grade 1 - Fatigue relieved by rest Radiation Dermatitis: grade 0 - No symptoms Diarrhea:grade 0 - No symptoms Proctitis: grade 0 - No symptoms Urinary frequency: grade 0 - No symptoms Dysuria: grade 1 - Microscopic hematuria; minimal increase in frequency, urgency, dysuria, or nocturia; new onset of incontinence Urinary incontinence: grade 0 (No symptoms) Urinary retention: grade 0 - No symptoms Treatment chart checked: Yes Patient treatment site reviewed and verified:Yes Port films reviewed and current:Yes Medications started: None ASSESSMENT/PLAN: Clinically stable. Side effects are within expected parameters. The patient has completed radiotherapy as planned. Acute and delayed side effects were reviewed. Christopher Castaneda MD Allergies As of Date: 01/17/2025 Noted Allergy Reaction RED FOOD COLOR (BULK) 10/20/2024 14 - Other: See Comments Comments: Rectal bleeding per patient Date Reviewed: 01/17/2025 Reviewed by: Niesha Bettencourt, GUERO - Fully Assessed Reason for Visit: Prostate Cancer [590] Cmt: OTV prostate RT Primary Visit Diagnosis:Malignant neoplasm of prostate (HCC) [C61] Prescriptions as of 01/31/2025 - CALCIUM-VITAMIN D3 ORAL Take by mouth. - amLODIPine (NORVASC) 10 mg tablet Take 10 mg by mouth once daily. - docusate sodium (STOOL SOFTENER PO) Take by mouth. Problem List As Of Date: 01/17/2025 (None) Encounter Status:Closed by CHRISTOPHER CASTANEDA on 01/31/25[facility] [id number] (RADTSA) CIPRIANO ARZATE ([id number]) 1960 M Date Time Provider Department 01/11/25 Kwasi SANDOVAL During your visit today, we recorded the following information about you: Allison Hart RN 01/11/2025 11:01 AM Signed Please sign pended PSA for 4 week post Tx PSA and f/u. Allison Hart RN Allergies As of Date: 01/11/2025 Noted Allergy Reaction RED FOOD COLOR (BULK) 10/20/2024 14 - Other: See Comments Comments: Rectal bleeding per patient Date Reviewed: 01/10/2025 Reviewed by: Allison Hart RN - Fully Assessed Reason for Visit: Lab Orders [0338] Primary Visit Diagnosis:Malignant neoplasm of prostate (HCC) [C61] Order(s):PROSTATE-SPECIFIC ANTIGEN DIAGNOSTIC [SQPSA] Order #: [id number] FUTURE Prescriptions as of 01/11/2025 - CALCIUM-VITAMIN D3 ORAL Take by mouth. - amLODIPine (NORVASC) 10 mg tablet Take 10 mg by mouth once daily. - docusate sodium (STOOL SOFTENER PO) Take by mouth. Problem List As Of Date: 01/11/2025 (None) Encounter Status:Closed by ALLISON HART on 01/11/25[facility] [id number] Visit (RADTSA) CIPRIANO ARZATE ([id number]) 1960 M Date Time Provider Department 01/10/25 1:45 PM Kwasi SANDOVAL During your visit today, we recorded the following information about you: Temperature Pulse Respiration Blood pressure 97.6 degrees 101/minute 18/minute 133/89 Weight 70.6 kg Kwasi Sandoval MD 01/10/2025 2:50 PM Signed Radiation Oncology - On Treatment Review (OTR) Note PATIENT NAME: Cipriano Arzate PATIENT DIAGNOSIS: Prostate adenocarcinoma, initial PSA 15.33, biopsy Archana score 3 + 4 = 7 (grade group 2), clinical stage T2a, N0, M0, stage IIB [T1-T2, N0, M0, PSA <20, GG 2] (AJCC 8th ed.), s/p biopsy. NCCN Risk Group: Unfavorable Intermediate Risk Group COURSE: definitive Current dose: 5750 cGy in 23 fx Planned dose: 7000 cGy in 28 fx SUBJECTIVE: No new issues or concerns. PHYSICAL EXAM: 01/10/25 1402 BP: 133/89 Pulse: 101 Resp: 18 Temp: 36.4 ?C (97.6 ?F) SpO2: 96% Weight: 70.6 kg (155 lb 10.3 oz) KPS: 100 General Appearance: Alert and oriented. No acute distress. IMAGING/LAB RESULTS: Hemoglobin (g/dL) Date Value 12/16/2024 15.9 Hematocrit (%) Date Value 12/16/2024 46.6 WBC (k/uL) Date Value 12/16/2024 6.18 Platelet Count (k/uL) Date Value 12/16/2024 232 TOXICITY ASSESSMENT (CTC v4.0): Fatigue:grade 1 Radiation Dermatitis: grade 0 - No symptoms Diarrhea:grade 1 Proctitis: grade 0 - No symptoms Urinary frequency: grade 0 - No symptoms Dysuria: grade 1 Urinary incontinence: grade 0 (No symptoms) Urinary retention: grade 0 - No symptoms Treatment chart checked: Yes Patient treatment site reviewed and verified:Yes Port films reviewed and current:Yes Medications started: None ASSESSMENT/PLAN: Patient doing well. Chart and films reviewed. Continue treatment. Follow-up care discussed completion of treatment. Kwasi Sandoval MD Referring Provider: Kwasi SANDOVAL [[id number]] Allergies As of Date: 01/10/2025 Noted Allergy Reaction RED FOOD COLOR (BULK) 10/20/2024 14 - Other: See Comments Comments: Rectal bleeding per patient Date Reviewed: 01/10/2025 Reviewed by: Allison Hart, GUERO - Fully Assessed Reason for Visit: Radiotherapy On-treatment Visit [1722] Primary Visit Diagnosis:Malignant neoplasm of prostate (HCC) [C61] Prescriptions as of 01/10/2025 - CALCIUM-VITAMIN D3 ORAL Take by mouth. - amLODIPine (NORVASC) 10 mg tablet Take 10 mg by mouth once daily. - docusate sodium (STOOL SOFTENER PO) Take by mouth. Problem List As Of Date: 01/10/2025 (None) Encounter Status:Closed by Kwasi SANDOVAL on 01/10/25[facility] [id number] Visit (KIRAA) CIPRIANO ARZATE ([id number]) 1960 M Date Time Provider Department 01/03/25 1:45 PM Kwasi SANDOVAL RADTSA During your visit today, we recorded the following information about you: Temperature Pulse Respiration Blood pressure 97.3 degrees 86/minute 16/minute 149/91 Weight 70.5 kg Kwasi Sandoval MD 01/03/2025 3:06 PM Signed Radiation Oncology - On Treatment Review (OTR) Note PATIENT NAME: Cipriano Arzate PATIENT DIAGNOSIS: Prostate adenocarcinoma, initial PSA 15.33, biopsy Willard score 3 + 4 = 7 (grade group 2), clinical stage T2a, N0, M0, stage IIB [T1-T2, N0, M0, PSA <20, GG 2] (AJCC 8th ed.), s/p biopsy. NCCN Risk Group: Unfavorable Intermediate Risk Group COURSE: definitive Current dose: 4500 cGy in 18 fx Planned dose: 7000 cGy in 28 fx SUBJECTIVE: Persistent lower abdominal pain he relates to his known hernias. Denies bowel change. Denies change in bowel consistency from stoma. Passing occasional mucousy discharge from rectum without bleeding PHYSICAL EXAM: 01/03/25 1406 BP: 149/91 Pulse: 86 Resp: 16 Temp: 36.3 ?C (97.3 ?F) SpO2: 98% Weight: 70.5 kg (155 lb 6.8 oz) KPS: 100 General Appearance: Alert and oriented. No acute distress. IMAGING/LAB RESULTS: Hemoglobin (g/dL) Date Value 12/16/2024 15.9 Hematocrit (%) Date Value 12/16/2024 46.6 WBC (k/uL) Date Value 12/16/2024 6.18 Platelet Count (k/uL) Date Value 12/16/2024 232 TOXICITY ASSESSMENT (CTC v4.0): Fatigue:grade 1 Radiation Dermatitis: grade 0 - No symptoms Diarrhea:grade 1 Proctitis: grade 0 - No symptoms Urinary frequency: grade 0 - No symptoms Dysuria: grade 1 Urinary incontinence: grade 0 (No symptoms) Urinary retention: grade 0 - No symptoms Treatment chart checked: Yes Patient treatment site reviewed and verified:Yes Port films reviewed and current:Yes Medications started: None ASSESSMENT/PLAN: Patient doing well. Chart and films reviewed. Continue treatment. G Du Sandoval MD Allergies As of Date: 01/03/2025 Noted Allergy Reaction RED FOOD COLOR (BULK) 10/20/2024 14 - Other: See Comments Comments: Rectal bleeding per patient Date Reviewed: 01/03/2025 Reviewed by: Allison Hart RN - Fully Assessed Reason for Visit: Radiotherapy On-treatment Visit [1722] Primary Visit Diagnosis:Malignant neoplasm of prostate (HCC) [C61] Prescriptions as of 01/03/2025 - CALCIUM-VITAMIN D3 ORAL Take by mouth. - amLODIPine (NORVASC) 10 mg tablet Take 10 mg by mouth once daily. - docusate sodium (STOOL SOFTENER PO) Take by mouth. Problem List As Of Date: 01/03/2025 (None) Encounter Status:Closed by Kwasi SANDOVAL on 01/03/25[facility] [id number] Visit (RADTSA) CIPRIANO ARZATE ([id number]) 1960 M Date Time Provider Department 12/28/24 1:30 PM Kwasi SANDOVAL During your visit today, we recorded the following information about you: Pulse Respiration Blood pressure Weight 90/minute 18/minute 148/89 70.3 kg Kwasi Sandoval MD 12/28/2024 2:15 PM Signed Radiation Oncology - On Treatment Review (OTR) Note PATIENT NAME: Cipriano Arzate PATIENT DIAGNOSIS: Prostate adenocarcinoma, initial PSA 15.33, biopsy Archana score 3 + 4 = 7 (grade group 2), clinical stage T2a, N0, M0, stage IIB [T1-T2, N0, M0, PSA <20, GG 2] (AJCC 8th ed.), s/p biopsy. NCCN Risk Group: Unfavorable Intermediate Risk Group COURSE: definitive Current dose: 3500 cGy in 14 fx Planned dose: 7000 cGy in 28 fx SUBJECTIVE: No significant changes. Denies fever or abdominal pain. PHYSICAL EXAM: 12/28/24 1351 BP: 148/89 Pulse: 90 Resp: 18 SpO2: 96% Weight: 70.3 kg (154 lb 15.7 oz) KPS: 100 General Appearance: Alert and oriented. No acute distress. IMAGING/LAB RESULTS: Hemoglobin (g/dL) Date Value 12/16/2024 15.9 Hematocrit (%) Date Value 12/16/2024 46.6 WBC (k/uL) Date Value 12/16/2024 6.18 Platelet Count (k/uL) Date Value 12/16/2024 232 TOXICITY ASSESSMENT (CTC v4.0): Fatigue:grade 1 Radiation Dermatitis: grade 0 - No symptoms Diarrhea:grade 1 Proctitis: grade 0 - No symptoms Urinary frequency: grade 0 - No symptoms Dysuria: grade 1 Urinary incontinence: grade 0 (No symptoms) Urinary retention: grade 0 - No symptoms Treatment chart checked: Yes Patient treatment site reviewed and verified:Yes Port films reviewed and current:Yes Medications started: None ASSESSMENT/PLAN: Patient doing well. Chart and films reviewed. Continue treatment. Kwasi Sandoval MD Allergies As of Date: 12/28/2024 Noted Allergy Reaction RED FOOD COLOR (BULK) 10/20/2024 14 - Other: See Comments Comments: Rectal bleeding per patient Date Reviewed: 12/28/2024 Reviewed by: Allison Hart RN - Fully Assessed Reason for Visit: Radiotherapy On-treatment Visit [1722] Primary Visit Diagnosis:Malignant neoplasm of prostate (HCC) [C61] Prescriptions as of 12/28/2024 - CALCIUM-VITAMIN D3 ORAL Take by mouth. - amLODIPine (NORVASC) 10 mg tablet Take 10 mg by mouth once daily. - docusate sodium (STOOL SOFTENER PO) Take by mouth. Problem List As Of Date: 12/28/2024 (None) Encounter Status:Closed by Kwasi SANDOVAL on 12/28/24[facility] [id number] (RADTSA) CIPRIANO ARZATE ([id number]) 1960 M Date Time Provider Department 12/24/24 Kwasi SANDOVAL During your visit today, we recorded the following information about you: Radha Serrano RN 12/24/2024 3:16 PM Signed I attempted to call Dr. Abdirashid Boss per Dr. Sandoval's request but there was no answer. Phone number: [phone]. Thanks Radha Serrano RN Message Received: Yesterday Kwasi Sandoval MD sent to [facility] Nurse Singh; Allison Catherine Patient needs follow-up with his reverberatory skimmer/general surgeon regarding future colostomy reversal and concern regarding passing material from his rectum. Radha Serrano RN 12/28/2024 1:24 PM Signed I called and spoke to Suze at Dr. Boss's office and she said their office spoke with Cipriano in October 2024. Suze said Cipriano was notified that he will need a repeat CT scan prior to scheduling with Dr. Boss and patient said it will have to be after his radiation treatment is completed. 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 I asked when Cipriano should be concerned and she said if he passes blood per rectum. Cipriano will need to contact their office after he has the CT scan. Thanks GUERO Hurtado Ariana E, RN 12/28/2024 2:16 PM Signed Patient notified today of the need for repeat CT scan prior to scheduling appt with Dr. Boss. Radha Serrano RN Allergies As of Date: 12/24/2024 Noted Allergy Reaction RED FOOD COLOR (BULK) 10/20/2024 14 - Other: See Comments Comments: Rectal bleeding per patient Date Reviewed: 12/20/2024 Reviewed by: Allison Hart, GUERO - Fully Assessed Reason for Visit: Patient Update [1234] Prescriptions as of 12/28/2024 - CALCIUM-VITAMIN D3 ORAL Take by mouth. - amLODIPine (NORVASC) 10 mg tablet Take 10 mg by mouth once daily. - docusate sodium (STOOL SOFTENER PO) Take by mouth. Problem List As Of Date: 12/24/2024 (None) Encounter Status:Closed by RADHA SERRANO on 12/28/24[facility] [id number] Visit (LAVERNTSA) CIPRIANO ARZATE ([id number]) 1960 M Date Time Provider Department 12/23/24 1:30 PM Kwasi SANDOVAL During your visit today, we recorded the following information about you: Kwasi Sandoval MD 12/23/2024 3:23 PM Signed Radiation Oncology - On Treatment Review (OTR) Note PATIENT NAME: Cipriano Arzate PATIENT DIAGNOSIS: Prostate adenocarcinoma, initial PSA 15.33, biopsy Archana score 3 + 4 = 7 (grade group 2), clinical stage T2a, N0, M0, stage IIB [T1-T2, N0, M0, PSA <20, GG 2] (AJCC 8th ed.), s/p biopsy. NCCN Risk Group: Unfavorable Intermediate Risk Group COURSE: definitive Current dose: 3000 cGy in 12 fx Planned dose: 7000 cGy in 28 fx SUBJECTIVE: Patient seen today due to concern of passing small semisolid greenish discharge/cord turd No associated pain. No bleeding. No fever. PHYSICAL EXAM: KPS: 100 General Appearance: Alert and oriented. No acute distress. IMAGING/LAB RESULTS: Hemoglobin (g/dL) Date Value 12/16/2024 15.9 Hematocrit (%) Date Value 12/16/2024 46.6 WBC (k/uL) Date Value 12/16/2024 6.18 Platelet Count (k/uL) Date Value 12/16/2024 232 TOXICITY ASSESSMENT (CTC v4.0): Fatigue:grade 0 - No symptoms Radiation Dermatitis: grade 0 - No symptoms Diarrhea:grade 1 Proctitis: grade 0 - No symptoms Urinary frequency: grade 0 - No symptoms Dysuria: grade 1 Urinary incontinence: grade 0 (No symptoms) Urinary retention: grade 0 - No symptoms Treatment chart checked: Yes Patient treatment site reviewed and verified:Yes Port films reviewed and current:Yes Medications started: None ASSESSMENT/PLAN: Patient doing well. Patient did pass possible retained mucus from rectum. If this continues or increases in volume we will need to see his reverberatory skimmer otherwise recommend that he get back and have follow-up with his reverberatory skimmer regarding this and the issue regarding future colostomy reversal. Kwasi Sandoval MD Allergies As of Date: 12/23/2024 Noted Allergy Reaction RED FOOD COLOR (BULK) 10/20/2024 14 - Other: See Comments Comments: Rectal bleeding per patient Date Reviewed: 12/20/2024 Reviewed by: Allison Hart RN - Fully Assessed Primary Visit Diagnosis:Malignant neoplasm of prostate (HCC) [C61] Prescriptions as of 12/23/2024 - CALCIUM-VITAMIN D3 ORAL Take by mouth. - amLODIPine (NORVASC) 10 mg tablet Take 10 mg by mouth once daily. - docusate sodium (STOOL SOFTENER PO) Take by mouth. Problem List As Of Date: 12/23/2024 (None) Encounter Status:Closed by Kwasi SANDOVAL on 12/23/24[facility] [id number] Visit (KIRAA) CIPRIANO ARZATE ([id number]) 1960 M Date Time Provider Department 12/20/24 1:30 PM Kwasi SANDOVAL During your visit today, we recorded the following information about you: Temperature Pulse Respiration Blood pressure 97.5 degrees 86/minute 16/minute 169/79 Weight 73.3 kg Kwasi Sandoval MD 12/20/2024 2:42 PM Signed Radiation Oncology - On Treatment Review (OTR) Note PATIENT NAME: Cipriano Arzate PATIENT DIAGNOSIS: Prostate adenocarcinoma, initial PSA 15.33, biopsy Willard score 3 + 4 = 7 (grade group 2), clinical stage T2a, N0, M0, stage IIB [T1-T2, N0, M0, PSA <20, GG 2] (AJCC 8th ed.), s/p biopsy. NCCN Risk Group: Unfavorable Intermediate Risk Group COURSE: definitive Current dose: 2250 cGy in 9 fx Planned dose: 7000 cGy in 28 fx SUBJECTIVE: Some diarrhea over the weekend. No other issues. PHYSICAL EXAM: 12/20/24 1342 BP: 169/79 Pulse: 86 Resp: 16 Temp: 36.4 ?C (97.5 ?F) SpO2: 96% Weight: 73.3 kg (161 lb 9.6 oz) KPS: 100 General Appearance: Alert and oriented. No acute distress. IMAGING/LAB RESULTS: Hemoglobin (g/dL) Date Value 12/16/2024 15.9 Hematocrit (%) Date Value 12/16/2024 46.6 WBC (k/uL) Date Value 12/16/2024 6.18 Platelet Count (k/uL) Date Value 12/16/2024 232 TOXICITY ASSESSMENT (CTC v4.0): Fatigue:grade 0 - No symptoms Radiation Dermatitis: grade 0 - No symptoms Diarrhea:grade 1 Proctitis: grade 0 - No symptoms Urinary frequency: grade 0 - No symptoms Dysuria: grade 1 Urinary incontinence: grade 0 (No symptoms) Urinary retention: grade 0 - No symptoms Treatment chart checked: Yes Patient treatment site reviewed and verified:Yes Port films reviewed and current:Yes Medications started: None ASSESSMENT/PLAN: Patient doing well. Having mild diarrhea, patient on stool softener discussed backing off on this. Chart and imaging reviewed. Continue radiation as outlined. Kwasi Sandoval MD Referring Provider: Kwasi SANDOVAL [[id number]] Allergies As of Date: 12/20/2024 Noted Allergy Reaction RED FOOD COLOR (BULK) 10/20/2024 14 - Other: See Comments Comments: Rectal bleeding per patient Date Reviewed: 12/20/2024 Reviewed by: Allison Hart RN - Fully Assessed Reason for Visit: Radiotherapy On-treatment Visit [1722] Primary Visit Diagnosis:Malignant neoplasm of prostate (HCC) [C61] Prescriptions as of 12/20/2024 - CALCIUM-VITAMIN D3 ORAL Take by mouth. - amLODIPine (NORVASC) 10 mg tablet Take 10 mg by mouth once daily. - docusate sodium (STOOL SOFTENER PO) Take by mouth. Problem List As Of Date: 12/20/2024 (None) Encounter Status:Closed by Kwasi SANDOVAL on 12/20/24[facility] W Auto Differential panel (Bld)on 31-01-5041Dvunrgwkn (Bld) [#/Vol] 0.04 10*3/[facility] HospitalDifferential cell count method Nom (Bld)Auto [facility] HospitalEosinophils (Bld) [#/Vol]0.07 10*3/uLNIRegional Medical Center Immature granulocytes (Bld) [#/Vol]0.04 10*3/[facility] HospitalImmature granulocytes/100 WBC (Bld)0.6 %[facility] HospitalLymphocytes (Bld) [#/Vol]1.13 10*3/[facility] SystemMCV (RBC) [Entitic vol]94.0 fL80.0 - 100.0 fLCChillicothe VA Medical CenterMonocytes (Bld) [#/Vol]0.63 10*3/NIRegional Medical CenterNeutrophils (Bld) [#/Vol]4.27 10*3/[facility] SystemNucleated RBC (Bld) [#/Vol]NINFClevelRegency Hospital Cleveland EastNucleated RBC/100 WBC (Bld) [Ratio]0.0 %/100 WBCOhiohealth Shelby HospitalPlatelet mean volume (Bld) [Entitic vol]9.9 fL9.0 - 12.7 fLCcleveland clinic avon hospital ClinicPlatelets (Bld) [#/Vol]232 10*3/[facility] Health SystemWBC (Bld) [#/Vol]6.18 10*3/[facility] SystemBasophils (Bld) [#/Vol]0.04 10*3/Normal<0.11CNationwide Children's Hospital Comment on above:Order Comment: Specimen Type: BLOOD SPECIMENOrdering Facility: [facility] Address:[address] [place] [address] Performed By: #### 00963-3 ####[facility] LABCLIA [id number] [place], [place] [address]Osjodhgdk/100 WBC (Bld)0.6 % NormalRegency Hospital Cleveland EastComment on above:Order Comment: Specimen Type: BLOOD SPECIMENOrdering Facility: [facility] Address:[address] [place], [place] [address]Ovvgrtyww By: #### 27023-7 ####[facility] LABCLIA [id number] [place] [address] Differential cell count method Nom (Bld)AutoNormalClevelCarolinas ContinueC[facility] Comment on above:Order Comment: Specimen Type: BLOOD SPECIMENOrdering Facility: [facility] Address:[address] [place] [address] Performed By: #### 71867-8 ####[facility] LABCLIA [id number] [place], [place] [address]Ckxmnxlwbmd (Bld) [#/Vol]0.07 10*3/uLNormal<0.46[facility] on above:Order Comment: Specimen Type: BLOOD SPECIMENOrdering Facility: [facility] Address:[address] [place], [place] [address]Performed By: #### 06549-2 ####[facility] LABCLIA [id number] [place], [place] [address]Lhrssphaogp/100 WBC (Bld)1.1 %NormalWood County Hospital on above:Order Comment: Specimen Type: BLOOD SPECIMENOrdering Facility: [facility] Address:[address] [place], [place] [address]Performed By: #### 62876-2 ####[facility] LABIA [id number] [place], [place] [address]Fmzcnprnhnq distribution width (RBC) [Ratio]13.3 %Fcownd36.5-15.0[facility] on above: Order Comment: Specimen Type: BLOOD SPECIMENOrdering Facility: [facility] Address:[address] [place], [place] [address]Performed By: #### 98544- 8 ####[facility] LABIA [id number] [place], [place] [address]Otmvuvdwwp (Bld) [Volume fraction]46.6 %Rtdpnb99.0-51.0 [facility] on above:Order Comment: Specimen Type: BLOOD SPECIMENOrdering Facility: [facility] Address:[address] [place], [place] [address]Performed By: #### 29396-4 ####[facility] LABCLIA [id number] [place], [place] [address]Kuyjxkfpyp (Bld) [Mass/Vol]15.9 g/vZJeplxy48.0-17.0[facility] on above: Order Comment: Specimen Type: BLOOD SPECIMENOrdering Facility: [facility] Address:[address] [place], [place] [address]Performed By: #### 32621- 8 ####[facility] LABCLIA [id number] [place], [place] [address]Rshfogth granulocytes (Bld) [#/Vol]0.04 10*3/uLNormal <0.10[facility] on above:Order Comment: Specimen Type: BLOOD SPECIMENOrdering Facility: [facility] Address:[address] [place], [place] [address]Performed By: #### 66897-2 ####[facility] LABIA [id number] [place], [place] [address]Wiyzadyk granulocytes/100 WBC (Bld)0.6 %NormalWood County Hospital on above: Order Comment: Specimen Type: BLOOD SPECIMENOrdering Facility: [facility] Address:[address] [place], [place] [address]Performed By: #### 51492- 8 ####[facility] LABCLIA [id number] [place], [place] [address]Cymsbuvfdjd (Bld) [#/Vol]1.13 10*3/uLNormal1.00-4.00 [facility] on above:Order Comment: Specimen Type: BLOOD SPECIMENOrdering Facility: [facility] Address:[address] [place], [place] [address]Performed By: #### 31788-5 ####[facility] LABCLIA [id number] [place], [place] [address]Jwufpectpmq/100 WBC (Bld)18.3 %NormalWood County Hospital on above:Order Comment: Specimen Type: BLOOD SPECIMENOrdering Facility: [facility] Address:[address] [place], [place] [address]Performed By: #### 28884-7 ####[facility] LABCLIA [id number] [place], [place] [address]LDJ (RBC) [Entitic mass]32.1 wkFompan28.0-34.0[facility] on above:Order Comment: Specimen Type: BLOOD SPECIMENOrdering Facility: [facility] Address:[address] [place], [place] [address]Performed By: #### 84398-4 ####[facility] LABIA [id number] [place], [place] [address]UNPL (RBC) [Mass/Vol]34.1 g/nXQgxtsr01.5-36.0[facility] on above: Order Comment: Specimen Type: BLOOD SPECIMENOrdering Facility: [facility] Address:[address] [place], [place] [address]Performed By: #### 65657- 8 ####[facility] LABIA [id number] [place], [place] [address]WAW (RBC) [Entitic vol]94.0 bAGqzzoz61.0-100.0[facility] on above:Order Comment: Specimen Type: BLOOD SPECIMENOrdering Facility: [facility] Address:[address] [place], [place] [address]Performed By: #### 48996-7 ####[facility] LABIA [id number] [place], [place] [address]Apbgcgadd (Bld) [#/Vol]0.63 10*3/uLNormal<0.87[facility] on above:Order Comment: Specimen Type: BLOOD SPECIMENOrdering Facility: [facility] Address:[address] [place], [place] [address]Performed By: #### 95389- 8 ####[facility] LABCLIA [id number] [place], [place] [address]Xbsfwreeh/100 WBC (Bld)10.2 %NormalWood County Hospital on above:Order Comment: Specimen Type: BLOOD SPECIMENOrdering Facility: [facility] Address:[address] [place], [place] [address]Performed By: #### 50790-9 ####[facility] LABIA [id number] [place], [place] [address]Dbvtrwdfapr (Bld) [#/Vol]4.27 10*3/uLNormal1.45-7.50[facility] on above:Order Comment: Specimen Type: BLOOD SPECIMENOrdering Facility: [facility] Address:[address] [place], [place] [address]Performed By: #### 53067-2 ####[facility] LABCLIA [id number] [place], [place] [address]Rfxsmbrfmnz/100 WBC (Bld)69.2 %NormalWood County Hospital on above:Order Comment: Specimen Type: BLOOD SPECIMENOrdering Facility: [facility] Address:[address] [place], [place] [address]Performed By: #### 19234-1 ####[facility] LABCLIA [id number] [place], [place] [address]Btygxyimk RBC (Bld) [#/Vol] 10*3/uLNormal<0.01[facility] on above:Order Comment: Specimen Type: BLOOD SPECIMENOrdering Facility: [facility] Address:[address] [place], [place] [address]Performed By: #### 96401-4 ####[facility] LABCLIA [id number] [place], [place] [address]Jhnlllodq RBC/100 WBC (Bld) [Ratio]0.0 /100 WBCNormal [facility] on above:Order Comment: Specimen Type: BLOOD SPECIMENOrdering Facility: [facility] Address:[address] [place], [place] [address]Performed By: #### 80576-9 ####[facility] LABCLIA [id number] [place], [place] [address]Dqwpbwpi mean volume (Bld) [Entitic vol]9.9 fLNormal9.0-12.7CDetwiler Memorial Hospital on above:Order Comment: Specimen Type: BLOOD SPECIMENOrdering Facility: [facility] Address:[address] [place] [address] Performed By: #### 99588-3 ####[facility] LABCLIA [id number] [place], [place] [address]Tlphzvgou (Bld) [#/Vol]232 10*3/wHRcutaj091-393ZfbhnbhecWood County Hospital on above:Order Comment: Specimen Type: BLOOD SPECIMENOrdering Facility: [facility] Address:[address] [place], [place] [address]Performed By: #### 97554-1 ####[facility] LABCLIA [id number] [place], [place] [address]VQI (Bld) [#/Vol]4.96 10*6/uLNormal4.20-6.00[facility] on above:Order Comment: Specimen Type: BLOOD SPECIMENOrdering Facility: [facility] Address:[address] [place], [place] [address]Performed By: #### 06503-6 ####[facility] LABCLIA [id number] [place], [place] [address]ATL (Bld) [#/Vol]6.18 10*3/uLNormal3.70-11.00[facility] on above: Order Comment: Specimen Type: BLOOD SPECIMENOrdering Facility: [facility] Address:[address] [place] [address] [place], [place] [address]Kyfvzyslu By: #### 00328- 8 ####[facility] LABCLIA [id number] [place], [place] [address]VOH CBC W AUTO DIFF BLDon [id number] BASOPHILS # BLD AUTO0.04NINFNOMS HealthcareCCF DIFFERENTIAL METHOD BLDAutoNOMS HealthcareCCF EOSINOPHIL # BLD AUTO0.07NINFNOMS HealthcareCCF LYMPHOCYTES # BLD AUTO1.13NOMS HealthcareCCF MONOCYTES # BLD AUTO0.63NINFNOMS HealthcareCCF NEUTROPHILS # BLD AUTO4.27NOMS HealthcareCCF NRBC # BLD AUTO<0.01NINFNOMS HealthcareCCF NRBC/100 WBC BLD-RTO0/100 WBCNOKS HealthcareF PLATELET # BLD [id number] HealthcareCCF PMV BLD AUTO9.9 fL9.0 - 12.7 fLNOMS HealthcareCCF WBC # BLD AUTO6.18NOMS HealthcareIMM GRANULOCYTES # BLD AUTO0.04NINFCox BransonM GRANULOCYTES/LEUK NFR BLD AUTO0.6 %NOMS HealthcareMCV (RBC) [Entitic vol]94 fL 80.0 - 100.0 fLNOMS HealthcareSpecimen Type: BLOOD SPECIMEN [facility] Address: [address] [place], [place] [address]Alanna [place] [id number] Original Ordering Provider: Kwasi Manzano [id number] Office Visit (RADTSA) CIPRIANO ARZATE ([id number]) 1960 M Date Time Provider Department 12/16/24 1:15 PM LAB/PORT RADSana MAE During your visit today, we recorded the following information about you: Niesha Bettencourt RN 12/16/2024 1:46 PM Signed Cipriano Arzate presents in office today for: Lab Draw only . Ordering Provider: Du Sandoval M.D. Test (s) ordered: CBC Method for obtaining blood: Phlebotomy was performed, accessing right antecubital vein. Needle removed intact. Dressing secured. Patient denies discomfort, dizziness, light-headedness or weakness and left the department without assist. Niesha Bettencourt RN Referring Provider: Kwasi SANDOVAL [[id number]] Allergies As of Date: 12/16/2024 Noted Allergy Reaction RED FOOD COLOR (BULK) 10/20/2024 14 - Other: See Comments Comments: Rectal bleeding per patient Date Reviewed: 12/13/2024 Reviewed by: Radha Serrano RN - Fully Assessed Visit Diagnosis:Malignant neoplasm of prostate (HCC) [C61] Order(s):COMPLETE BLOOD COUNT AND DIFFERENTIAL [SQCBCDIF] Order #: [id number]. #:[id number] Prescriptions as of 12/16/2024 - CALCIUM-VITAMIN D3 ORAL Take by mouth. - amLODIPine (NORVASC) 10 mg tablet Take 10 mg by mouth once daily. - docusate sodium (STOOL SOFTENER PO) Take by mouth. Problem List As Of Date: 12/16/2024 (None) Encounter Status:Closed by NIESHA BETTENCOURT on 12/16/24[facility] Cell countson [id number]/100 WBC (Bld)0.6 %[facility]100 WBC (Bld)1.1 %[facility] Erythrocyte distribution width (RBC) [Ratio]13.3 %11.5 - 15.0 %[facility] Hematocrit (Bld) [Volume fraction]46.6 %39.0 - 51.0 %[facility] WashingtonHemoglobin (Bld) [Mass/Vol]15.9 g/dL13.0 - 17.0 g/dLMercy Hospital WashingtonLymphocytes/100 WBC (Bld)18.3 %[facility] (RBC) [Entitic mass]32.1 pg26.0 - 34.0 pgNOMS HealthcareMCHC (RBC) [Mass/Vol]34.1 g/dL30.5 - 36.0 g/dLNOKS Healthcare Monocytes/100 WBC (Bld)10.2 %[facility] HealthcareNeutrophils/100 WBC (Bld)69.2 %[facility] HealthcareRBC (Bld) [#/Vol]4.96 10*6/uL4.20 - 6.00 m/uLNOMS HealthcareNo Panel Informationon [id number] HealthcareCNOVon [id number] Visit (RADTSA) CIPRIANO ARZATE ([id number]) 1960 M Date Time Provider Department 12/13/24 1:15 PM Kwasi SANDOVAL During your visit today, we recorded the following information about you: Temperature Pulse Respiration Blood pressure 97.6 degrees 91/minute 16/minute 151/103 Weight 77.9 kg Kwasi Sandoval MD 12/13/2024 2:22 PM Signed Radiation Oncology - On Treatment Review (OTR) Note PATIENT NAME: Cipriano Arzate PATIENT DIAGNOSIS: Prostate adenocarcinoma, initial PSA 15.33, biopsy Willard score 3 + 4 = 7 (grade group 2), clinical stage T2a, N0, M0, stage IIB [T1-T2, N0, M0, PSA <20, GG 2] (AJCC 8th ed.), s/p biopsy. NCCN Risk Group: Unfavorable Intermediate Risk Group COURSE: definitive Current dose: 1000 cGy in 4 fx Planned dose: 7000 cGy in 28 fx SUBJECTIVE: Having some dysuria. No fever. PHYSICAL EXAM: 12/13/24 1412 BP: 151/103 Pulse: 91 Resp: 16 Temp: 36.4 ?C (97.6 ?F) SpO2: 97% Weight: 77.9 kg (171 lb 11.8 oz) KPS: 100 General Appearance: Alert and oriented. No acute distress. IMAGING/LAB RESULTS: None TOXICITY ASSESSMENT (CTC v4.0): Fatigue:grade 0 - No symptoms Radiation Dermatitis: grade 0 - No symptoms Diarrhea:grade 0 - No symptoms Proctitis: grade 0 - No symptoms Urinary frequency: grade 0 - No symptoms Dysuria: grade 1 Urinary incontinence: grade 0 (No symptoms) Urinary retention: grade 0 - No symptoms Treatment chart checked: Yes Patient treatment site reviewed and verified:Yes Port films reviewed and current:Yes Medications started: None ASSESSMENT/PLAN: Patient doing well. Having some dysuria, UA ordered. Chart and imaging reviewed. Continue radiation as outlined. Kwasi Sandoval MD Allergies As of Date: 12/13/2024 Noted Allergy Reaction RED FOOD COLOR (BULK) 10/20/2024 14 - Other: See Comments Comments: Rectal bleeding per patient Date Reviewed: 12/13/2024 Reviewed by: Radha Serrano RN - Fully Assessed Reason for Visit: Radiotherapy On-treatment Visit [172] Primary Visit Diagnosis:Malignant neoplasm of prostate (HCC) [C61] Order(s):COMPLETE BLOOD COUNT AND DIFFERENTIAL [SQCBCDIF] Order #: [id number] FUTURE UA DIP, URINE (POC) [[id number]] Order #: [id number] Prescriptions as of 12/13/2024 - CALCIUM-VITAMIN D3 ORAL Take by mouth. - amLODIPine (NORVASC) 10 mg tablet Take 10 mg by mouth once daily. - docusate sodium (STOOL SOFTENER PO) Take by mouth. Problem List As Of Date: 12/13/2024 (None) Encounter Status:Closed by Kwasi SANDOVAL on 12/13/24[facility]i [id number] Visit (CARMELITA) CIPRIANO ARZATE ([id number]) 1960 M Date Time Provider Department 12/08/24 12:00 PM ENGELER, G DU RADTSA During your visit today, we recorded the following information about you: Kwasi Sandoval MD 12/13/2024 2:06 PM Signed Radiation Oncology - On Treatment Review (OTR) Note PATIENT NAME: Cipriano SPENCE DIAGNOSIS: Prostate adenocarcinoma, initial PSA 15.33, biopsy Willard score 3 + 4 = 7 (grade group 2), clinical stage T2a, N0, M0, stage IIB [T1-T2, N0, M0, PSA <20, GG 2] (AJCC 8th ed.), s/p biopsy. NCCN Risk Group: Unfavorable Intermediate Risk Group COURSE: definitive Current dose: 250 cGy in 1 fx Planned dose: 7000 cGy in 28 fx SUBJECTIVE: Here to start radiation, doing well. PHYSICAL EXAM: KPS: 100 General Appearance: Alert and oriented. No acute distress. IMAGING/LAB RESULTS: None TOXICITY ASSESSMENT (CTC v4.0): Fatigue:grade 0 - No symptoms Radiation Dermatitis: grade 0 - No symptoms Diarrhea:grade 0 - No symptoms Proctitis: grade 0 - No symptoms Urinary frequency: grade 0 - No symptoms Dysuria: grade 0 - No symptoms Urinary incontinence: grade 0 (No symptoms) Urinary retention: grade 0 - No symptoms Treatment chart checked: Yes Patient treatment site reviewed and verified:Yes Port films reviewed and current:Yes Medications started: None ASSESSMENT/PLAN: Patient starting radiation today. Plan of care and expectations again reviewed. Plan, MU calculations and qa report reviewed. Initial imaging including cone beam ct and verification reviewed and approved. First treatment given. Continue radiation as prescribed. Kwasi Sandoval MD Allergies As of Date: 12/08/2024 Noted Allergy Reaction RED FOOD COLOR (BULK) 10/20/2024 14 - Other: See Comments Comments: Rectal bleeding per patient Date Reviewed: 11/11/2024 Reviewed by: Radha Serrano, RN - Fully Assessed Primary Visit Diagnosis:Malignant neoplasm of prostate (HCC) [C61] Prescriptions as of 12/13/2024 - amLODIPine (NORVASC) 10 mg tablet Take 10 mg by mouth once daily. - docusate sodium (STOOL SOFTENER PO) Take by mouth. Problem List As Of Date: 12/08/2024 (None) Encounter Status:Closed by Kwasi SANDOVAL on 8/18/[address] [place] [address] [id number] Visit (RADTSA) CIPRIANO ARZATE ([id number]) 1960 M Date Time Provider Department 11/29/24 1:30 PM Kwasi SANDOVAL During your visit today, we recorded the following information about you: Kwasi Sandoval MD 11/29/2024 3:37 PM Signed sim Allergies As of Date: 11/29/2024 Noted Allergy Reaction RED FOOD COLOR (BULK) 10/20/2024 14 - Other: See Comments Comments: Rectal bleeding per patient Date Reviewed: 11/11/2024 Reviewed by: Radha Serrano, RN - Fully Assessed Primary Visit Diagnosis:Malignant neoplasm of prostate (HCC) [C61] Prescriptions as of 11/29/2024 - amLODIPine (NORVASC) 10 mg tablet Take 10 mg by mouth once daily. - docusate sodium (STOOL SOFTENER PO) Take by mouth. Problem List As Of Date: 11/29/2024 (None) Encounter Status:Closed by Kwasi SANDOVAL on 11/29/24[facility] CIPRIAN[facility] ARZATE ([id number]) 1960 M Date Time Provider Department 11/29/24 1:00 PM Kwasi SANDOVAL During your visit today, we recorded the following information about you: Referring Provider: Kwasi SANDOVAL [[id number]] Allergies As of Date: 11/29/2024 Noted Allergy Reaction RED FOOD COLOR (BULK) 10/20/2024 14 - Other: See Comments Comments: Rectal bleeding per patient Date Reviewed: 11/11/2024 Reviewed by: Radha Serrano RN - Fully Assessed Reason for Visit: Simulation Request Form [8650] Primary Visit Diagnosis:Malignant neoplasm of prostate (HCC) [C61] Order(s):RADIATION TREATMENT PER RADIATION ONCOLOGIST PLAN [[id number]] Order #: [id number]: 1 PT ED CANCER [[id number]] Order #: [id number]: 1 CT SIM PLANNING RADIATION ONCOLOGY [[id number]] Order #: [id number] Prescriptions as of 11/29/2024 - amLODIPine (NORVASC) 10 mg tablet Take 10 mg by mouth once daily. - docusate sodium (STOOL SOFTENER PO) Take by mouth. Problem List As Of Date: 11/29/2024 (None) Encounter Status:Closed by Kwasi SANDOVAL on 11/29/24[facility] Office/Clinic Noteon [id number] Office/Clinic Note Urology Office/Clinic Note Chief Complaint Lupron per Dr. Sandoval HPI Staff 64 yr old male here for Lupron per Dr Gerardo Dx: Elevated PSA, Microscopic hematuria, Testicular swelling left PSA done 08/10/24 - 13.0 & 10.2% IPSS score today is 14. Urgency more than half the time. Intermittency almost always. Frequency less than half the time. Nocturia x2. History of Present Illness Tests reviewed: reviewed UA, rad onc notes, PSMA PET. I have reviewed the previous health record information and history for this patient from Dr. Lawrence I have reviewed and verified the staff HPI to be accurate for this encounter. Review of Systems PHQ Score Initial Depression Screen Score: 0 SCORE ROS - Provider Constitutional: denies weight loss, denies hot flashes. Eyes: denies eye problems. Gastrointestinal: denies nausea, denies vomiting. Cardiovascular: denies chest pain or angina. Integumentary: no dryness Musculoskeletal: denies musculoskeletal symptoms. ENMT: denies otolaryngeal symptoms. Respiratory: no shortness of breath. Heme/Lymph: denies easy bleeding tendency, denies easy bruising tendency. Psychiatric: no confusion, no anxiety. Genitourinary: See HPI. Physical Exam Vitals & Measurements T: 37 ???C(Temporal Artery) HR: 94(Peripheral) RR: 16 BP: 125/80 HT: 175 cm HT: 69 in WT: 77 kg WT: 169.756 lb BMI: 25.14 General Appearance: alert, no distress, well nourished, well developed male. Assessment/Plan Has colostomy due to diverticulitis. IPSS 14 (15) Prior ALMA 4 1. Prostate cancer (C61: Malignant neoplasm of prostate) PSA 08/09/24 - 13 & 10.2% *only level on record No known fam hx of pros ca. JEANETTE 08/23/24 - 35g, benign S/p TRUS/bx 09/14/24 - prostate volume 47 mL. Denies post op complications. Path ~Willard 7 (3+4) 3cores. Grade group 2. 29% core involvement. Archana 6 (3+3) 5 cores. Perineural invasion identified. Total of 7/12 cores. Initial consult with Dr. Sandoval 10/20/24 - obtain further staging with PSMA PET. PSMA PET 10/26/24 - No PSMA expressing pelvic lymphadenopathy. No PSMA expressing distant metastases. Saw Dr. Sandoval 11/11/24 - pt wanted to proceed with EBRT only. Recommend ADT for 6-12 mos especially around his favorable intermediate risk presentation. Lupron 45 mgIM injection given today with no complications. Left glute. Pt directed to start calcium and Vit D for bone health. -Cont with Dr. Sandoval and complete EBRT -Start Ca and Vit D -F/up in 6 mos w/ PSA and Lupron 2. Microscopic hematuria (R31.29: Other microscopic hematuria) CT AP w con 11/26/23 [facility] - Neg. Urine cytology showed mild atypia. S/p cysto 09/14/24 - Moderate (2), one fairly large diverticulum on the L posterior lateral wall. No tumors in the tic. UA today shows small blood. Denies gross hematuria. Pt knows to call with visible blood in urine. 3. Hydrocele (N43.3: Hydrocele, unspecified) C/o left sided testicular pain and swelling, ongoing for the last 3-4 months. Exam 10/01/24 ~mild L hydrocele. Scrotal US 10/04/24 [facility] - minimal R hydrocele. Large anechoic L hydrocele. Follow-up With When Contact Information MELINDA SANCHEZ, Clarissa Saldivar, [address] [place] [address]- Additional Instructions: 6 mos w/ PSA and Lupron Patient Education Prostate Cancer I, Beatris Arreaga, personally scribed for Dr. Lawrence on 11/26/2024 11:50:18. Electronically signedby scribe Beatris Arreaga on 11/26/2024 11:50:18. Documentation recorded by the scribe, Beatris Arreaga, accurately reflects the services(s) I performed and decisions made by me. Authenticated by Dr. Lawrence on 11/26/2024 11:52:43. Problem List/Past Medical History Ongoing BPH with elevated PSA Diverticulitis Elevated PSA Hydrocele Microscopic hematuria Prostate cancer Testicular swelling, left Historical No qualifying data Procedure/Surgical History TRUS (transrectal ultrasound) guided cryoablation of prostate (09/14/2024), Colonoscopy, Colostomy,History of hernia repair. Medications amLODIPine 10 mg Tab, 10 mg= 1 tab(s), Oral, Daily Colace, See Instructions Allergies No Known Medication Allergies Social History Alcohol - Denies Alcohol Use, 08/23/2024 Substance Abuse - Medium Risk, 08/23/2024 Current, Marijuana, Daily, 08/23/2024 Tobacco - Denies Tobacco Use, 08/23/2024 Never (less than 100 in lifetime) Tobacco Use:. Never Smokeless Tobacco Use:. Yes, 11/26/2024 Family History Acute myocardial infarction: Father. Cancer: Mother. Immunizations Vaccine Date Status Comments SARS-CoV-2 (COVID-19) mRNA-1273 vaccine 08/11/2020 Recorded 2024-09-06: TPV60 SARS-CoV-2 (COVID-19) mRNA-1273 vaccine 07/14/2020 Recorded 2024-09-06: TPV60 Lab Results Ambulatory Point of Care Results Bilirubin Urine Dipstick: Negative (11/26/24 11:44:00) Blood Urine Dipstick: 1+ Small (11/26/24 11:44:00) Glucose Urine Dipstick: Trace 100 mg/dl (11/26/24 11:44:00) Ketones Urine Dipstick: Negative ( (more content not included)...Normal [facility] HospitalComment on above:Result Comment: Electronically Signed By: Clarissa LAWRENCE MD.br\Date and Time Signed: 11/26/24 11:52 EDT\.br\Electronically Co-Signed By: Beatris Arreaga.br\Date and Time Co- Signed: 11/26/2510:50 EDTCNOVon [id number] Visit (RADTSA) CIPRIANO ARZATE ([id number]) 1960 M Date Time Provider Department 11/11/24 2:15 PM Kwasi SANDOVAL During your visit today, we recorded the following information about you: Temperature Pulse Respiration Blood pressure 97.7 degrees 70/minute 18/minute 142/84 Weight 77.6 kg Kwasi Sandoval MD 11/11/2024 2:45 PM Signed Radiation Oncology - Prostate Cancer Follow-up note PATIENT NAME: Cipriano Arzate PATIENT DIAGNOSIS: Prostate adenocarcinoma, initial PSA 15.33, biopsy Willard score 3 + 4 = 7 (grade group 2), clinical stage T2a, N0, M0, stage IIB [T1-T2, N0, M0, PSA <20, GG 2] (AJCC 8th ed.), s/p biopsy. NCCN Risk Group: Unfavorable Intermediate Risk Group HPI: Patient returns after further staging. PSMA PET 10/26/2024: IMPRESSION: PROSTATE: * No PSMA expressing prostate lesion. * Mild heterogeneous PSMA uptake in the prostate, nonspecific. DOV DISEASE: * No PSMA expressing pelvic lymphadenopathy. METASTATIC DISEASE: * No PSMA expressing distant metastases. The patient reports the following pertinent history: Urinary frequency (D/N): 4-6/1-2 Dysuria: No Incontinence: 1- No pads Hematuria: See HPI - Total AUA Score: 13 Bowel Movement Frequency: 1/day Bowel Movement Quality: Normal Blood per Rectum: No Androgen Deprivation: none Prior Radiation Therapy, Collagen Vascular Disease, or Inflammatory Bowel Disease: No Any implanted or external electric devices? No Currently on Anticoagulation: No History of Hip Replacement: No History of Prior TURP: No ALLERGIES Allergen Reactions Red Food Color (Bul* Other: See Comments Rectal bleeding per patient amLODIPine (NORVASC) 10 mg tablet Take 10 mg by mouth once daily. docusate sodium (STOOL SOFTENER PO) Take by mouth. PAST MEDICAL HISTORY Diagnosis Date Diverticulosis HTN (hypertension) PAST SURGICAL HISTORY Procedure Laterality Date COLON VIA STOMA RESECTION colon resection d/t diverticulitis HERNIA REPAIR HX umilical x 1, bilateral groin FAMILY HISTORY Problem Relation Age of Onset Cancer Mother Cancer Maternal Grandmother Social History Tobacco Use Smoking status: Former Types: Cigarettes Smokeless tobacco: Never Substance Use Topics Alcohol use: Not Currently Drug use: Yes Types: Marijuana REVIEW OF SYSTEMS: GENERAL: feeling well without fatigue, no recent change in weight NECK: denies swelling or pain in neck RESPIRATORY: Chronic cough periodic COPD exacerbations, this is prevented him from having his colostomy reversed he denies any hemoptysis or recent fever. CARDIOVASCULAR: no chest pain, no palpitations GI: See HPI : See HPI, does complain of chronic left scrotal discomfort. MUSCULOSKELETAL: denies any painful or swollen joints, no muscle aches SKIN: no rash NEURO: no numbness or paresthesias and no weakness of the extremities As noted in HPI PHYSICAL EXAM: VS: BP 142/84 Pulse 70 Temp 36.5 ?C (97.7 ?F) Resp 18 Wt 77.6 kg (171 lb 1.2 oz) SpO2 97% KARNOFSKY PERFORMANCE STATUS: 90 General Appearance: Alert and oriented. No acute distress. HEENT: NCAT. Sclera anicteric. PERRL. EOMI. Chest: No respiratory distress. Lungs clear to auscultation bilaterally. Abdomen: Soft. Nontender. Nondistended. Colostomy intact. Small left inguinal hernia. Musculoskeletal: No edema. Normal ROM in extremities. No bone or spine tenderness. Neuro: Speech fluent. Gait normal. No focal deficits. Rectal: Deferred RADIOLOGY/LABORATORY DATA: see HPI ASSESSMENT/PLAN: Prostate adenocarcinoma, initial PSA 15.33, biopsy Willard score 3 + 4 = 7 (grade group 2), clinical stage T2a, N0, M0, stage IIB [T1-T2, N0, M0, PSA <20, GG 2] (AJCC 8th ed.), s/p biopsy. NCCN Risk Group: Unfavorable Intermediate Risk Group Again discussed potential options with patient. Again discussed both active surveillance and definitive treatment. Given his unfavorable intermediate risk process I do feel definitive treatment warranted. Discussed both surgical and radiation approaches again. Answered many questions. Patient wants to proceed with external beam only. I would recommend addition of ADT for 6 to 12 months especially around his unfavorable intermediate risk presentation. Signed by: Kwasi Sandoval MD cc: Yissel Causey, GREGORIO Lawrence [address] [place] [place] [address] Allergies As of Date: 11/11/2024 Noted Allergy Reaction RED FOOD COLOR (BULK) 10/20/2024 14 - Other: See Comments Comments: Rectal bleeding per patient Date Reviewed: 11/11/2024 Reviewed by: Radha Serrano RN - Fully Assessed Reason for Visit: Prostate Cancer [590] Primary Visit Diagnosis:Malignant neoplasm of prostate (HCC) [C61] Prescriptions as of 11/11/2024 - amLODIPine (NORVASC) 10 mg tablet Take 10 mg by mouth once daily. - docusate sodium (STO (more content not included)...NormalRegency Hospital Cleveland EastCNPNon [id number] (KIRAA) CIPRIANO ARZATE ([id number]) 1960 M Date Time Provider Department 11/11/24 Kwasi SANDOVAL During your visit today, we recorded the following information about you: Radha Serrano RN 11/11/2024 2:32 PM Addendum PSS/RT: please schedule See Melinda schaeffer Plan ebrt only Return for sim treating pelvis with full bladder Presim consent Nurse ed today Thanks GUERO Hurtado Jodi 11/11/2024 2:44 PM Signed Nurse Homer added for today Ayah Soriano 11/11/2024 2:[address] Lawrence for nena Schaeffer, November 26 at 1030am in the [place] office. Patient confirmed Hillary Melendez, RT(R) 11/12/2024 7:37 AM Signed Sim scheduled on 11/29/24 at 830am PSS - please schedule presim consent with CONNER at 8am AND notify pt of 745 arrival time w/ full bladder. Thanks! Hillary Melendez RT(R)(T) Noy Zuluaga RT(R) 11/12/2024 8:43 AM Signed Ayah- I spoke to patient who needed a later time. Sim moved to 1:30 please reschedule presim consent to 1:00pm on 11/29 RT Mary Ann(R) Ayah Soriano 11/12/2024 8:46 AM Signed Pre sim moved to 1pm Allergies As of Date: 11/11/2024 Noted Allergy Reaction RED FOOD COLOR (BULK) 10/20/2024 14 - Other: See Comments Comments: Rectal bleeding per patient Date Reviewed: 11/11/2024 Reviewed by: Radha Serrano RN - Fully Assessed Reason for Visit: Appointment [186] Prescriptions as of 11/12/2024 - amLODIPine (NORVASC) 10 mg tablet Take 10 mg by mouth once daily. - docusate sodium (STOOL SOFTENER PO) Take by mouth. Problem List As Of Date: 11/11/2024 (None) Encounter Status:Closed by RADHA SERRANO on 11/12/24[facility]-05-2024* * *Final Report* * * DATE OF EXAM: Nov 05 2024 1:24PM NRN 0093 - NM PET/CT PROSTATE WB / PROCEDURE REASON: Malignant neoplasm of prostate (HCC) * * * * Physician Interpretation * * * * RESULT: EXAMINATION: PROSTATE-SPECIFIC MEMBRANE ANTIGEN PET-CT CLINICAL HISTORY: Prostate cancer. EXAM CATEGORY: Initial treatment strategy. TECHNIQUE: Radiopharmaceutical was administered intravenously followed later on by PET imaging from the skull vertex to thighs. Free breathing, low dose CT of the same body region was acquired without IV contrast for attenuation correction and anatomic localization. Unenhanced imaging is limited for the evaluation of some pathology and the acquired CT was not designed to produce diagnostic CT scan quality. Physiologic/non-pathologic uptake in some body regions could confound or obscure some pathology. * CT Dose-Length Product (DLP): 246 mGy*cm * CT Dose Reduction Employed: Yes * Injection site: Right Forearm-Antecubital * Injected activity: 9.6 mCi * Uptake Time: 60 minutes * Radiopharmaceutical: F-18 PSMA (Posluma) COMPARISON: No previous PSMA PET/CT available RESULT: REFERENCES: Uptake by the injected radiopharmaceutical serves as a surrogate marker for prostate-specific membrane antigen (PSMA) expression. All reported standardized uptake values represent maximum SUV (SUVmax) per body weight, unless otherwise specified. SUV Reference Values: * Background Salivary Gland: SUVmax 17 * Blood Pool (Descending Aorta): SUVmax 2 * Background Liver: SUVmax 5 Localizer Images: No additional findings. HEAD AND NECK: Head: No radiotracer avid lesion or mass effect in the intracranial compartment. Aerodigestive Tract: No radiotracer avid lesion. Lymph Nodes: No radiotracer avid lymphadenopathy. Neck Soft Tissues: No radiotracer avid thyroid nodule. CHEST: Lungs and Pleura: No radiotracer avid mass, nodule, or consolidation. No pleural effusion. Lymph Nodes: No radiotracer avid lymphadenopathy. Mediastinum: No radiotracer avid mass. Cardiovascular: Blood pool activity. No pericardial effusion. Chest Wall: No radiotracer avid soft tissue lesion. ABDOMEN AND PELVIS: Hepatobiliary: No radiotracer avid lesion. No measurable mass. Spleen: No radiotracer avid lesion. No splenomegaly. Pancreas: No radiotracer avid lesion. Adrenals: No radiotracer avid nodule. Urinary Tract: Physiologic radiotracer excretion in the urinary tract. No hydronephrosis. GI Tract: No radiotracer avid lesion. No bowel dilation. Peritoneum: No radiotracer avid lesion. No ascites. Lymph Nodes: * Abdomen (including common iliac): No radiotracer avid lymphadenopathy. * Pelvis (below common iliac): No radiotracer avid lymphadenopathy. Vasculature: Blood pool activity. Prostate and Seminal Vesicles: No radiotracer avid lesion. Mild diffuse heterogeneous tracer uptake in the prostate, SUV 4.7, nonspecific Pelvis Soft Tissues: No radiotracer avid lesion. MUSCULOSKELETAL: Bones: No radiotracer avid lesion concerning for metastases. Focal tracer uptake in the left lateral sixth rib probably related to benign fibrous lesion Soft Tissues: No radiotracer avid lesion. IMPRESSION: PROSTATE: * No PSMA expressing prostate lesion. * Mild heterogeneous PSMA uptake in the prostate, nonspecific. DOV DISEASE: * No PSMA expressing pelvic lymphadenopathy. METASTATIC DISEASE: * No PSMA expressing distant metastases. Transcribe Date/Time: Nov 05 2024 4:15P Dictated by: RENA ABDUL MD This examination was interpreted and the report reviewed and electronically signed by: RENA ABDUL MD on Nov 05 2024 4:29PM EST Thank you for allowing us to participate in the care of your patient. Should there be any questions regarding this interpretation, please call [phone]. If you are unable to reach us at the number above, please feel free to contact [facility] at [phone]. [id number]^[email or web address]^SI^ACNCCFRadiology, Radiologist, - 11/05/2024 * * *Final Report* * * DATE OF EXAM: Nov 05 2024 1:24PM NRN 0093 - NM PET/CT PROSTATE WB / PROCEDURE REASON: Malignant neoplasm of prostate (HCC) * * * * Physician Interpretation * * * * RESULT: EXAMINATION: PROSTATE-SPECIFIC MEMBRANE ANTIGEN PET-CT CLINICAL HISTORY: Prostate cancer. EXAM CATEGORY: Initial treatment strategy. TECHNIQUE: Radiopharmaceutical was administered intravenously followed later on by PET imaging from the skull vertex to thighs. Free breathing, low dose CT of the same body region was acquired without IV contrast for attenuation correction and anatomic localization. Unenhanced imaging is limited for the evaluation of some pathology and the acquired CT was not designed to produce diagnostic CT scan quality. Physiologic/non-pathologic uptake in some body regions could confound or obscure some pathology. * CT Dose-Length Product (DLP): 246 mGy*cm * CT Dose Reduction Employed: Yes * Injection site: Right Forearm-Antecubital * Injected activity: 9.6 mCi * Uptake Time: 60 minutes * Radiopharmaceutical: F-18 PSMA (Posluma) COMPARISON: No previous PSMA PET/CT available RESULT: REFERENCES: Uptake by the injected radiopharmaceutical serves as a surrogate marker for prostate-specific membrane antigen (PSMA) expression. All reported standardized uptake values represent maximum SUV (SUVmax) per body weight, unless otherwise specified. SUV Reference Values: * Background Salivary Gland: SUVmax 17 * Blood Pool (Descending Aorta): SUVmax 2 * Background Liver: SUVmax 5 Localizer Images: No additional findings. HEAD AND NECK: Head: No radiotracer avid lesion or mass effect in the intracranial compartment. Aerodigestive Tract: No radiotracer avid lesion. Lymph Nodes: No radiotracer avid lymphadenopathy. Neck Soft Tissues: No radiotracer avid thyroid nodule. CHEST: Lungs and Pleura: No radiotracer avid mass, nodule, or consolidation. No pleural effusion. Lymph Nodes: No radiotracer avid lymphadenopathy. Mediastinum: No radiotracer avid mass. Cardiovascular: Blood pool activity. No pericardial effusion. Chest Wall: No radiotracer avid soft tissue lesion. ABDOMEN AND PELVIS: Hepatobiliary: No radiotracer avid lesion. No measurable mass. Spleen: No radiotracer avid lesion. No splenomegaly. Pancreas: No radiotracer avid lesion. Adrenals: No radiotracer avid nodule. Urinary Tract: Physiologic radiotracer excretion in the urinary tract. No hydronephrosis. GI Tract: No radiotracer avid lesion. No bowel dilation. Peritoneum: No radiotracer avid lesion. No ascites. Lymph Nodes: * Abdomen (including common iliac): No radiotracer avid lymphadenopathy. * Pelvis (below common iliac): No radiotracer avid lymphadenopathy. Vasculature: Blood pool activity. Prostate and Seminal Vesicles: No radiotracer avid lesion. Mild diffuse heterogeneous tracer uptake in the prostate, SUV 4.7, nonspecific Pelvis Soft Tissues: No radiotracer avid lesion. MUSCULOSKELETAL: Bones: No radiotracer avid lesion concerning for metastases. Focal tracer uptake in the left lateral sixth rib probably related to benign fibrous lesion Soft Tissues: No radiotracer avid lesion. IMPRESSION: PROSTATE: * No PSMA expressing prostate lesion. * Mild heterogeneous PSMA uptake in the prostate, nonspecific. DOV DISEASE: * No PSMA expressing pelvic lymphadenopathy. METASTATIC DISEASE: * No PSMA expressing distant metastases. Transcribe Date/Time: Nov 05 2024 4:15P Dictated by: RENA ABDUL MD This examination was interpreted and the report reviewed and electronically signed by: RENA ABDUL MD on Nov 05 2024 4:29PM EST Thank you for allowing us to participate in the care of your patient. Should there be any questions regarding this interpretation, please call [phone]. If you are unable to reach us at the number above, please feel free to contact [facility] at [phone]. [id number]^[id number]^SI^ACN NOMS HealthcareNM PET/CT PROSTATE WB* * *Final Report* * * DATE OF EXAM: Nov 05 2024 1:24PM NRN 0093 - NM PET/CT PROSTATE WB / PROCEDURE REASON: Malignant neoplasm of prostate (HCC) * * * * Physician Interpretation * * * * RESULT: EXAMINATION: PROSTATE-SPECIFIC MEMBRANE ANTIGEN PET-CT CLINICAL HISTORY: Prostate cancer. EXAM CATEGORY: Initial treatment strategy. TECHNIQUE: Radiopharmaceutical was administered intravenously followed later on by PET imaging from the skull vertex to thighs. Free breathing, low dose CT of the same body region was acquired without IV contrast for attenuation correction and anatomic localization. Unenhanced imaging is limited for the evaluation of some pathology and the acquired CT was not designed to produce diagnostic CT scan quality. Physiologic/non-pathologic uptake in some body regions could confound or obscure some pathology. * CT Dose-Length Product (DLP): 246 mGy*cm * CT Dose Reduction Employed: Yes * Injection site: Right Forearm-Antecubital * Injected activity: 9.6 mCi * Uptake Time: 60 minutes * Radiopharmaceutical: F-18 PSMA (Posluma) COMPARISON: No previous PSMA PET/CT available RESULT: REFERENCES: Uptake by the injected radiopharmaceutical serves as a surrogate marker for prostate-specific membrane antigen (PSMA) expression. All reported standardized uptake values represent maximum SUV (SUVmax) per body weight, unless otherwise specified. SUV Reference Values: * Background Salivary Gland: SUVmax 17 * Blood Pool (Descending Aorta): SUVmax 2 * Background Liver: SUVmax 5 Localizer Images: No additional findings. HEAD AND NECK: Head: No radiotracer avid lesion or mass effect in the intracranial compartment. Aerodigestive Tract: No radiotracer avid lesion. Lymph Nodes: No radiotracer avid lymphadenopathy. Neck Soft Tissues: No radiotracer avid thyroid nodule. CHEST: Lungs and Pleura: No radiotracer avid mass, nodule, or consolidation. No pleural effusion. Lymph Nodes: No radiotracer avid lymphadenopathy. Mediastinum: No radiotracer avid mass. Cardiovascular: Blood pool activity. No pericardial effusion. Chest Wall: No radiotracer avid soft tissue lesion. ABDOMEN AND PELVIS: Hepatobiliary: No radiotracer avid lesion. No measurable mass. Spleen: No radiotracer avid lesion. No splenomegaly. Pancreas: No radiotracer avid lesion. Adrenals: No radiotracer avid nodule. Urinary Tract: Physiologic radiotracer excretion in the urinary tract. No hydronephrosis. GI Tract: No radiotracer avid lesion. No bowel dilation. Peritoneum: No radiotracer avid lesion. No ascites. Lymph Nodes: * Abdomen (including common iliac): No radiotracer avid lymphadenopathy. * Pelvis (below common iliac): No radiotracer avid lymphadenopathy. Vasculature: Blood pool activity. Prostate and Seminal Vesicles: No radiotracer avid lesion. Mild diffuse heterogeneous tracer uptake in the prostate, SUV 4.7, nonspecific Pelvis Soft Tissues: No radiotracer avid lesion. MUSCULOSKELETAL: Bones: No radiotracer avid lesion concerning for metastases. Focal tracer uptake in the left lateral sixth rib probably related to benign fibrous lesion Soft Tissues: No radiotracer avid lesion. IMPRESSION: PROSTATE: * No PSMA expressing prostate lesion. * Mild heterogeneous PSMA uptake in the prostate, nonspecific. DOV DISEASE: * No PSMA expressing pelvic lymphadenopathy. METASTATIC DISEASE: * No PSMA expressing distant metastases. Transcribe Date/Time: Nov 05 2024 4:15P Dictated by: RENA ABDUL MD This examination was interpreted and the report reviewed and electronically signed by: RENA ABDUL MD on Nov 05 2024 4:29PM EST Thank you for allowing us to participate in the care of your patient. Should there be any questions regarding this interpretation, please call [phone]. If you are unable to reach us at the number above, please feel free to contact [facility]iology at [phone]. [id number]_IDCSIACNNormalVeterans Health Administration Panel Information Ordered By: Radiologist Radiology on [id number] [employer] Work Phone: no Panel Informationon [id number] Study observation (narrative)[facility] Guidance for localization of tumor of Whole body-- W [id number] [place] [id number]: PROSTATE: * No PSMA expressing prostate lesion. * Mild heterogeneous PSMA uptake in the prostate, nonspecific. DOV DISEASE: * No PSMA expressing pelvic lymphadenopathy. METASTATIC DISEASE: * No PSMA expressing distant metastases. Transcribe Date/Time: Nov 05 2024 4:15P Dictated by: RENA ABDUL MD This examination was interpreted and the report reviewed and electronically signed by: RENA ABDUL MD on Nov 05 2024 4:29PM EST Thank you for allowing us to participate in the care of your patient. Should there be any questions regarding this interpretation, please call [phone]. If you are unable to reach us at the number above, please feel free to contact [facility] at [phone].DIVISION OF RADIOLOGY* * *Final Report* * * DATE OF EXAM: Nov 05 2024 1:24PM NRN 0093 - NM PET/CT PROSTATE WB / PROCEDURE REASON: Malignant neoplasm of prostate (HCC) * * * * Physician Interpretation * * * * RESULT: EXAMINATION: PROSTATE-SPECIFIC MEMBRANE ANTIGEN PET-CT CLINICAL HISTORY: Prostate cancer. EXAM CATEGORY: Initial treatment strategy. TECHNIQUE: Radiopharmaceutical was administered intravenously followed later on by PET imaging from the skull vertex to thighs. Free breathing, low dose CT of the same body region was acquired without IV contrast for attenuation correction and anatomic localization. Unenhanced imaging is limited for the evaluation of some pathology and the acquired CT was not designed to produce diagnostic CT scan quality. Physiologic/non-pathologic uptake in some body regions could confound or obscure some pathology. * CT Dose-Length Product (DLP): 246 mGy*cm * CT Dose Reduction Employed: Yes * Injection site: Right Forearm-Antecubital * Injected activity: 9.6 mCi * Uptake Time: 60 minutes * Radiopharmaceutical: F-18 PSMA (Posluma) COMPARISON: No previous PSMA PET/CT available RESULT: REFERENCES: Uptake by the injected radiopharmaceutical serves as a surrogate marker for prostate-specific membrane antigen (PSMA) expression. All reported standardized uptake values represent maximum SUV (SUVmax) per body weight, unless otherwise specified. SUV Reference Values: * Background Salivary Gland: SUVmax 17 * Blood Pool (Descending Aorta): SUVmax 2 * Background Liver: SUVmax 5 Localizer Images: No additional findings. HEAD AND NECK: Head: No radiotracer avid lesion or mass effect in the intracranial compartment. Aerodigestive Tract: No radiotracer avid lesion. Lymph Nodes: No radiotracer avid lymphadenopathy. Neck Soft Tissues: No radiotracer avid thyroid nodule. CHEST: Lungs & Pleura: No radiotracer avid mass, nodule, or consolidation. No pleural effusion. Lymph Nodes: No radiotracer avid lymphadenopathy. Mediastinum: No radiotracer avid mass. Cardiovascular: Blood pool activity. No pericardial effusion. Chest Wall: No radiotracer avid soft tissue lesion. ABDOMEN AND PELVIS: Hepatobiliary: No radiotracer avid lesion. No measurable mass. Spleen: No radiotracer avid lesion. No splenomegaly. Pancreas: No radiotracer avid lesion. Adrenals: No radiotracer avid nodule. Urinary Tract: Physiologic radiotracer excretion in the urinary tract. No hydronephrosis. GI Tract: No radiotracer avid lesion. No bowel dilation. Peritoneum: No radiotracer avid lesion. No ascites. Lymph Nodes: * Abdomen (including common iliac): No radiotracer avid lymphadenopathy. * Pelvis (below common iliac): No radiotracer avid lymphadenopathy. Vasculature: Blood pool activity. Prostate & Seminal Vesicles: No radiotracer avid lesion. Mild diffuse heterogeneous tracer uptake in the prostate, SUV 4.7, nonspecific Pelvis Soft Tissues: No radiotracer avid lesion. MUSCULOSKELETAL: Bones: No radiotracer avid lesion concerning for metastases. Focal tracer uptake in the left lateral sixth rib probably related to benign fibrous lesion Soft Tissues: No radiotracer avid lesion. DIVISION OF RADIOLOGYProvider, [facility] [place] - 11/05/2024 * * *Final Report* * * DATE OF EXAM: Nov 05 2024 1:24PM NRN 0093 - NM PET/CT PROSTATE WB / PROCEDURE REASON: Malignant neoplasm of prostate (HCC) * * * * Physician Interpretation * * * * RESULT: EXAMINATION: PROSTATE-SPECIFIC MEMBRANE ANTIGEN PET-CT CLINICAL HISTORY: Prostate cancer. EXAM CATEGORY: Initial treatment strategy. TECHNIQUE: Radiopharmaceutical was administered intravenously followed later on by PET imaging from the skull vertex to thighs. Free breathing, low dose CT of the same body region was acquired without IV contrast for attenuation correction and anatomic localization. Unenhanced imaging is limited for the evaluation of some pathology and the acquired CT was not designed to produce diagnostic CT scan quality. Physiologic/non-pathologic uptake in some body regions could confound or obscure some pathology. * CT Dose-Length Product (DLP): 246 mGy*cm * CT Dose Reduction Employed: Yes * Injection site: Right Forearm-Antecubital * Injected activity: 9.6 mCi * Uptake Time: 60 minutes * Radiopharmaceutical: F-18 PSMA (Posluma) COMPARISON: No previous PSMA PET/CT available RESULT: REFERENCES: Uptake by the injected radiopharmaceutical serves as a surrogate marker for prostate-specific membrane antigen (PSMA) expression. All reported standardized uptake values represent maximum SUV (SUVmax) per body weight, unless otherwise specified. SUV Reference Values: * Background Salivary Gland: SUVmax 17 * Blood Pool (Descending Aorta): SUVmax 2 * Background Liver: SUVmax 5 Localizer Images: No additional findings. HEAD AND NECK: Head: No radiotracer avid lesion or mass effect in the intracranial compartment. Aerodigestive Tract: No radiotracer avid lesion. Lymph Nodes: No radiotracer avid lymphadenopathy. Neck Soft Tissues: No radiotracer avid thyroid nodule. CHEST: Lungs & Pleura: No radiotracer avid mass, nodule, or consolidation. No pleural effusion. Lymph Nodes: No radiotracer avid lymphadenopathy. Mediastinum: No radiotracer avid mass. Cardiovascular: Blood pool activity. No pericardial effusion. Chest Wall: No radiotracer avid soft tissue lesion. ABDOMEN AND PELVIS: Hepatobiliary: No radiotracer avid lesion. No measurable mass. Spleen: No radiotracer avid lesion. No splenomegaly. Pancreas: No radiotracer avid lesion. Adrenals: No radiotracer avid nodule. Urinary Tract: Physiologic radiotracer excretion in the urinary tract. No hydronephrosis. GI Tract: No radiotracer avid lesion. No bowel dilation. Peritoneum: No radiotracer avid lesion. No ascites. Lymph Nodes: * Abdomen (including common iliac): No radiotracer avid lymphadenopathy. * Pelvis (below common iliac): No radiotracer avid lymphadenopathy. Vasculature: Blood pool activity. Prostate & Seminal Vesicles: No radiotracer avid lesion. Mild diffuse heterogeneous tracer uptake in the prostate, SUV 4.7, nonspecific Pelvis Soft Tissues: No radiotracer avid lesion. MUSCULOSKELETAL: Bones: No radiotracer avid lesion concerning for metastases. Focal tracer uptake in the left lateral sixth rib probably related to benign fibrous lesion Soft Tissues: No radiotracer avid lesion. IMPRESSION IMPRESSION: PROSTATE: * No PSMA expressing prostate lesion. * Mild heterogeneous PSMA uptake in the prostate, nonspecific. DOV DISEASE: * No PSMA expressing pelvic lymphadenopathy. METASTATIC DISEASE: * No PSMA expressing distant metastases. Transcribe Date/Time: Nov 05 2024 4:15P Dictated by: RENA ABDUL MD This examination was interpreted and the report reviewed and electronically signed by: RENA ABDUL MD on Nov 05 2024 4:29PM EST Thank you for allowing us to participate in the care of your patient. Should there be any questions regarding this interpretation, please call [phone]. If you are unable to reach us at the number above, please feel free to contact [facility]iology at [phone]. [facility] HospitalCNOVon [id number] Visit (RADTSA) CIPRIANO ARZATE ([id number]) 1960 M Date Time Provider Department 10/20/24 3:00 PM Kwasi SANDOVAL During your visit today, we recorded the following information about you: Radha Serrano RN 10/21/2024 11:41 AM Signed Pacemaker/Defibrillator?N Previous Cancer(s)?N Previous Radiation?N Lupus/Scleroderma?N On body monitoring device?N AUA= 23 GUERO Hurtado G Phillip, MD 10/21/2024 11:41 AM Signed Radiation Oncology - Prostate Cancer New Patient/Consult Note PATIENT NAME: Cipriano Arzate PATIENT REQUESTING PROVIDER: Dr. Lawrence DIAGNOSIS: 64 year old male with prostate adenocarcinoma, initial PSA 15.33, biopsy Archana score 3 + 4 = 7 (grade group 2), clinical stage T2a, N0, M0, stage IIB [T1-T2, N0, M0, PSA <20, GG 2] (AJCC 8th ed.), s/p biopsy. NCCN Risk Group: Unfavorable Intermediate Risk Group Cancer Staging No matching staging information was found for the patient. HPI: 64 year old male with prostate adenocarcinoma who presents for an opinion regarding the role of radiation therapy in the management of the patient's disease. Final recommendations will be communicated back to the requesting physician by way of the shared medical record, or letter to requesting physician via US mail. The patient was diagnosed with prostate cancer and comes in today to discuss treatment options. Patient presented with elevated PSA, 15.33 on 08/05/2024, repeated showing a value of 13.0 on 08/08/2024. (10.2% free). He had also had complaints of left testicular swelling and has known bilateral inguinal hernias. He was found to have microscopic hematuria on UA. He underwent cystoscopy as well as transrectal ultrasound biopsy. Urine cytology negative. Prostate biopsy on September 15, 2024 revealed: Adenocarcinoma Willard 7 (3+4) from left lateral apical right base right lateral base cores, Willard 6 from left base left mid left apical and right apical cores. Total # of positive biopsy cores: 7 Total # of biopsy cores sampled: 12 Greatest % cancer in any single core: 25-50% Staging Studies: CT abdomen 11/26/2023: Colostomy left lower abdomen. No suspicious findings otherwise Ultrasound scrotum 10/04/2024, no testicular mass. Left hydrocele seen. Previous Treatment for Prostate Cancer: None Genomic Testing: None The patient reports the following pertinent history: Urinary frequency (D/N): 4-6/1-2 Dysuria: No Incontinence: 1- No pads Hematuria: See HPI - Total AUA Score: 13 Bowel Movement Frequency: 1/day Bowel Movement Quality: Normal Blood per Rectum: No Androgen Deprivation: none Prior Radiation Therapy, Collagen Vascular Disease, or Inflammatory Bowel Disease: No Any implanted or external electric devices? No Currently on Anticoagulation: No History of Hip Replacement: No History of Prior TURP: No ALLERGIES Allergen Reactions Red Food Color (Bul* Other: See Comments Rectal bleeding per patient amLODIPine (NORVASC) 10 mg tablet Take 10 mg by mouth once daily. docusate sodium (STOOL SOFTENER PO) Take by mouth. PAST MEDICAL HISTORY Diagnosis Date Diverticulosis HTN (hypertension) PAST SURGICAL HISTORY Procedure Laterality Date COLON VIA STOMA RESECTION colon resection d/t diverticulitis HERNIA REPAIR HX umilical x 1, bilateral groin FAMILY HISTORY Problem Relation Age of Onset Cancer Mother Cancer Maternal Grandmother Social History Tobacco Use Smoking status: Former Types: Cigarettes Smokeless tobacco: Never Substance Use Topics Alcohol use: Not Currently Drug use: Yes Types: Marijuana REVIEW OF SYSTEMS: GENERAL: feeling well without fatigue, no recent change in weight NECK: denies swelling or pain in neck RESPIRATORY: Chronic cough periodic COPD exacerbations, this is prevented him from having his colostomy reversed he denies any hemoptysis or recent fever. CARDIOVASCULAR: no chest pain, no palpitations GI: See HPI : See HPI, does complain of chronic left scrotal discomfort. MUSCULOSKELETAL: denies any painful or swollen joints, no muscle aches SKIN: no rash NEURO: no numbness or paresthesias and no weakness of the extremities As noted in HPI PHYSICAL EXAM: VS: BP (P) 126/86 Pulse (P) 101 Temp (P) 36.8 ?C (98.3 ?F) Resp (P) 16 Wt (P) 76.9 kg (169 lb 8.5 oz) SpO2 (P) 95% [place] PERFORMANCE STATUS: 90 General Appearance: Alert and oriented. No acute distress. HEENT: NCAT. Sclera anicteric. PERRL. EOMI. Chest: No respiratory distress. Lungs clear to auscultation bilaterally. Abdomen: Soft. Nontender. Nondistended. descended testicles, left greater than right no firm nodule Musculoskeletal: No edema. Normal ROM in extremities. No bone or spine tenderness. Neuro: Speech fluent. Gait normal. No focal deficits. Rectal: Deferred RADIOLOGY/LABORATORY DATA: see (more content not included)...NormalRegency Hospital Cleveland EastCNPNon [id number] ([facility]) CIPRIANO ARZATE ([id number]) 1960 M Date Time Provider Department 10/20/24 Kwasi SANDOVAL During your visit today, we recorded the following information about you: Theodore Ayah 10/20/2024 3:25 PM Signed This form is used for MAIN CAMPUS APPOINTMENTS ONLY. Is this request for a [facility] [place] PET scan appointment? Yes: Rn Nursery: Ayah Soriano Who do we call to schedule this appointment? Other Contact: PSMA PET to be done in [facility]. Route to Radha Marmolejo in [place] to schedule Requesting Staff Du Sandoval Area Code + Phone/Pager: [phone] PET Orders (A delay in scheduling will result if the orders are not present at time of review): Internal ADDITIONAL ACTION MAY BE REQUIRED IF PATIENTS OON INSURANCE OR SELF PAY COVERAGE HAS NOT BEEN CLEARED FOR REQUESTED APPOINTMENT. Scheduling: MONICA: As soon as insurance will allow What account will this PET appointment be linked to? P/F Type of PET: Oncology: Are there additional diagnostic CT scans required to be done at time of PET scan? No Is the request for a PET MR ? No What account will diagnostic testing appointment be linked to? P/F Will the patient need anesthesia? NO Send requests to P COORD REVIEW Kortney Fischer 10/21/2024 7:26 AM Addendum Unable to process request with incompleted office note. Please advise once completed. Thanks, Lily Ayah Soriano 10/21/2024 11:13 AM Signed Sent a message to Dr. Sandoval to sign office notes Kortney Fischer 10/21/2024 12:19 PM Signed PSMA Comments for Service Or Work Dispatcher Chief: [place] Will the patient need anesthesia: NO Primary Insurance: Medicare B Effective Date: 04/28/2024 Date of Initial PET: Pend scheduling Cancer Type: prostate ca Date of Subsequent PET scan: N/A PET Scan Related to Transplant: N/A ABN Required: No Diagnosis: Malignant neoplasm of prostate (HCC) [C61] Pathology: September 15, 2024 prostate adenocarcinoma, initial PSA 15.33, biopsy Willard score 3 + 4 = 7 (grade group 2), clinical stage T2a, N0, M0, stage IIB Labs: na Clinical Notes Reviewed: 10/20/24 Date of last: na Additional Information/Imaging: N/A Is this the first PSMA PET:Yes (Please schedule as requested by patient or office) Positive Scan Schedule as place of last (DOS) or Region Negative Scan Schedule at ANY PSMA site requested Isotope used: Region F-18 flotufolastat,18F flotufolastat Posluma GA68 PSMA PET 81642/LOCAMETZ (Gallium GA-68 Gozetotide) (6 mCi) A9800 - Posluma (Flotufolastat F18) (8mCi), A9608 - Region Route to or Requested Scheduling Pool: P PET [facility], P [facility]), P [facility] Allergies As of Date: 10/20/2024 Noted Allergy Reaction RED FOOD COLOR (BULK) 10/20/2024 14 - Other: See Comments Comments: Rectal bleeding per patient Date Reviewed: Never Reviewed Reason for Visit: Nm Pet Request [8038] Prescriptions as of 10/21/2024 - amLODIPine (NORVASC) 10 mg tablet Take 10 mg by mouth once daily. - docusate sodium (STOOL SOFTENER PO) Take by mouth. Problem List As Of Date: 10/20/2024 (None) Encounter Status:Closed by AYAH SORIANO on 10/20/24[facility] Scrotum and test[place]on [id number] [address] Ultrasound Report Signed Patient: CIPRIANO ARZATE MR#: [id number] : 1960 Acct:[id number] Age/Sex: 64 / M ADM Date: 10/04/24 Loc: US Attending Dr: Clarissa Lawrence M.D. Ordering Physician: Clarissa Lawrence M.D. Date of Service: 10/04/24 Procedure(s): US scrotum Accession Number(s): [id number] cc: Yissel Arevalo NP; Clarissa Lawrence M.D. [address] [address] Patient Name: CIPRIANO ARZATE MRN: [id number] date: 1960 Sex: M Assigned Patient Location: US Current Patient Location: US Accession/Order Number: [id number] Exam Date: 10/04/2024 15:49 Report Date: 10/04/2024 15:51 At the request of: CLARISSA LAWRENCE MD Procedure: US scrotum Scrotal ultrasound HISTORY: Left scrotal swelling. Hydrocele. COMPARISON: None RIGHT testicle measures 4.1 x 2.3 x 3.5 cm. LEFT testicle measures 4.0 x 2.4 x 3.7 cm. No testicular mass or microcalcifications identified. Normal color flow of both testicles identified. RIGHT epididymal head within normal limits LEFT epididymal head within normal limits . Minimal right hydrocele. Large left hydrocele. No scrotal wall abnormality identified. US/US scrotum IMPRESSION: Normal testicles. Normal right and left epididymis. Large, anechoic left hydrocele. Impression dictated by: Gonzalo Mccall M.D. 10/04/2024 3:51 PM Dictation Location: [place] [address] Electronically authenticated by: [id number] Y Date: 10/04/2024 15:51 Dictated By: Gonzalo Mccall D.O. Signed By: 10/04/24 1554 DD/ 1551 TD/TT: Manufacturing Operator:ROSANGELAHRadiology, Radiologist, - 10/04/2024 [place] [address] Ultrasound Report Signed Patient: CIPRIANO ARZATE MR#: [id number] : 1960 Acct:[id number] Age/Sex: 64 / M ADM Date: 10/04/24 Loc: US Attending Dr: Clarissa Lawrence M.D. Ordering Physician: Clarissa Lawrence M.D. Date of Service: 10/04/24 Procedure(s): US scrotum Accession Number(s): [id number] cc: Yissel Arevalo NP; Clarissa Lawrence M.D. The [address] [address] Patient Name: CIPRIANO ARZATE MRN: [facility]:[id number] date: 1960 Sex: M Assigned Patient Location: US Current Patient Location: US Accession/Order Number: [id number] Exam Date: 10/04/2024 15:49 Report Date: 10/04/2024 15:51 At the request of: CLARISSA LAWRENCE MD Procedure: US scrotum Scrotal ultrasound HISTORY: Left scrotal swelling. Hydrocele. COMPARISON: None RIGHT testicle measures 4.1 x 2.3 x 3.5 cm. LEFT testicle measures 4.0 x 2.4 x 3.7 cm. No testicular mass or microcalcifications identified. Normal color flow of both testicles identified. RIGHT epididymal head within normal limits LEFT epididymal head within normal limits . Minimal right hydrocele. Large left hydrocele. No scrotal wall abnormality identified. US/US scrotum IMPRESSION: Normal testicles. Normal right and left epididymis. Large, anechoic left hydrocele. Impression dictated by: Gonzalo Mccall M.D. 10/04/2024 3:51 PM Dictation Location: [place] [address] Electronically authenticated by: [id number] Y Date: 10/04/2024 15:51 Dictated By: Gonzalo Mccall D.O. Signed By: 10/04/24 1554 DD/ 1551 TD/TT: Manufacturing Operator: VIOLET HealthcareRadiology Study observation (narrative)VIOLET BlancoUS Scrotum and testicleOrdered By: Radiologist Radiology on [phone] [employer] Work Phone: ambulatory Visit Summaryon [id number] Visit SummaryAmbulatory Visit Summary CIPRIANO ARZATE :1960 Visit Date:10/01/2024 Ambulatory Visit Instructions Your Diagnosis Prostate cancer Microscopic hematuria Hydrocele Tests Performed US Scrotum (Contents) -- Results Pending -- Please visit your patient portal for your results or contact your primary care physician. Your Care Team Attending Physician - MELINDA SANCHEZ, Clarissa Saldivar Primary Care Physician - YISSEL AREVALO CNP This Is Your Medications List Contact prescribing physician if questions or concerns amlodipine (amLODIPine 10 mg Tab) docusate (Colace) Procedures Performed TRUS (transrectal ultrasound) guided cryoablation of prostate (09/14/2024), Colonoscopy, Colostomy,History of hernia repair. Discharge Vitals Temperature (Oral) 36.5 ???C Heart Rate (Peripheral) 96 Respiratory Rate 16 Blood Pressure 136/84 Height 175 cm Height 69 in Weight 77.8 kg Weight 171.519 lb BMI 25.4 What to do next You Need to Schedule the Following Appointments Follow Up with MELINDA SANCHEZ, ALHAJI Flores When: Where: [address] [place], [place] [id number]- Someone Will Contact You Regarding These Appointments [facility] [place] Referral, Other Referral, Rad Onc ~Dr. Sandoval, 10/01/24 12:14:00 EDT, Prostate cancer Medications What How Much When Instructions Unchanged amlodipine (amLODIPine 10 mg Tab) 1 Tablets By Mouth Every day Contact prescribing physician if questions or concerns Unchanged docusate (Colace) See instructions Oral BID Contact prescribing physician if questions orconcerns Allergies No Known Medication Allergies Problems Ongoing - Any problem that you are currently receiving treatment for. BPH with elevated PSA Diverticulitis Elevated PSA Hydrocele Microscopic hematuria Prostate cancer Testicular swelling, left Patient Survey You may receive a survey via text or e-mail asking about your office visit. Please share your experience with us by completing your survey. We appreciate your feedback and thank you for choosing us for your care. Education Materials Hematuria, Adult Hematuria is blood in the urine. Blood may be visible in the urine, or it may be identified with a test. This condition can be caused by infections of the bladder, urethra, kidney, or prostate. Otherpossible causes include: ??? Kidney stones. ??? Cancer of the urinary tract. ??? Too much calcium in the urine. ??? Conditions that are passed from parent to child (inherited conditions). ??? Exercise that requires a lot of energy. Infections can usually be treated with medicine, and a kidney stone usually will pass through your urine. If neither of these is the cause of your hematuria, more tests may be needed to identify the cause of your symptoms. It is very important to tell your health care provider about any blood in your urine, even if it ispainless or the blood stops without treatment. Blood in the urine, when it happens and then stops and then happens again, can be a symptom of a very serious condition, including cancer. There is no pain in the initial stages of many urinary cancers. Follow these instructions at home: Medicines ??? Take cfim-imr-vyqmcbr and prescription medicines only as told by your health care provider. ??? If you were prescribed an antibiotic medicine, take it as told by your health care provider. Do notstop taking the antibiotic even if you start to feel better. Eating and drinking ??? Drink enough fluid to keep your urine pale yellow. It is recommended that you drink 3???4 quarts (2.8???3.8 L) a day. If you have been diagnosed with an infection, drinking cranberry juice in addition to large amounts of water is recommended. ??? Avoid caffeine, tea, and carbonated beverages. These tend to irritate the bladder. ??? Avoid alcohol because it may irritate the prostate (in males). General instructions ??? If you have been diagnosed with a kidney stone, follow your health care provider's instructions about straining your urine to catch the stone. ??? Empty your bladder often. Avoid holding urine for long periods of time. ??? If you are female: ? After a bowel movement, wipe from front to back and use each piece of toilet paper only once. ? Empty your bladder before and after sex. ??? Pay attention to any changes in your symptoms. Tell your health care provider about any changes or any new symptoms. ??? It is up to you to get the results of any tests. Ask your health care provider, or the department that is doing the test, when your results will be ready. ??? Keep all follow-up visits. This is important. Contact a health care provider if: ??? You develop back pain. ??? You have a fever or chills. ??? You have nausea or vomiting. ??? Your symptoms do not improve after 3 days. ??? Your symptoms get worse. Get help right away (more content not included)...NormalFisher Holy [facility] HospitalUrology Office/Clinic Noteon [id number] Office/Clinic NoteUrology Office/Clinic Note Chief Complaint path results HPI Staff 64 yr old male here for f/u to Cysto & TRUS/bx review PATH results Dx: Elevated PSA, Microscopic hematuria, Testicular swelling left PSA done 08/10/24 - 13.0 & 10.2% left testicle is swollen, and hurts, pt states he does have a hernia down there and says no one will look at tit History of Present Illness Tests reviewed: reviewed UA and path. I have reviewed the previous health record information and history for this patient from Dr. Lawrence I have reviewed and verified the staff HPI to be accurate for this encounter. There have been no associated fever, chills, flank pain, or blood in the urine. Denies any urinary infections since last encounter. Review of Systems PHQ Score Initial Depression Screen Score: 0 SCORE ROS - Provider Constitutional: denies weight loss, denies hot flashes. Eyes: denies eye problems. Gastrointestinal: denies nausea, denies vomiting. Cardiovascular: denies chest pain or angina. Integumentary: no dryness Musculoskeletal: denies musculoskeletal symptoms. ENMT: denies otolaryngeal symptoms. Respiratory: no shortness of breath. Heme/Lymph: denies easy bleeding tendency, denies easy bruising tendency. Psychiatric: no confusion, no anxiety. Genitourinary: See HPI. Physical Exam Vitals & Measurements T: 36.5 ???C(Oral) HR: 96(Peripheral) RR: 16 BP: 136/84 HT: 69 in HT: 175 cm WT: 77.8 kg WT: 171.519 lb BMI: 25.4 General Appearance: alert, no distress, well nourished, well developed male. Assessment/Plan Has colostomy due to diverticulitis. IPSS 15 ALMA 4 1. Prostate cancer (C61: Malignant neoplasm of prostate) PSA 08/09/24 - 13 & 10.2% *only level on record No known fam hx of pros ca. JEANETTE 08/23/24 - 35g, benign S/p TRUS/bx 09/14/24 - prostate volume 47 mL. Denies post op complications. Path ~Archana 7 (3+4) 3cores. Grade group 2. 29% core involvement. Archana 6 (3+3) 5 cores. Perineural invasion identified. Total of 7/12 cores. The pathology report, which shows the presence of prostate cancer, was disclosed to the patient in detail today. I discussed with the patient all the treatment options, including active surveillance,radical prostatectomy either by open, laparoscopic, or laparoscopic robotic technique. I discussed the radiation therapy options, including prostate brachytherapy, external beam radiation therapy, and combinations of the two. Lupron hormonal therapy was also discussed. I went over the pros and consof each therapy today. -Refer to Dr. Sandoval for rad onc consult 2. Microscopic hematuria (R31.29: Other microscopic hematuria) CT AP w con 11/26/23 [facility] - Neg. Urine cytology showed mild atypia. S/p cysto 09/14/24 - Moderate (2), one fairly large diverticulum on the L posterior lateral wall. No tumors in the tic. UA today shows small blood. Denies gross hematuria. 3. Hydrocele (N43.3: Hydrocele, unspecified) C/o left sided testicular pain and swelling, ongoing for the last 3-4 months. Exam ~mild L hydrocele. Will order scrotal US. He wishes to proceed. Follow-up With When Contact Information MELINDA SANCHEZ, Clarissa Saldivar, URL [address] [place] [id number]- Additional Instructions: Refer to rad onc Patient Education Hematuria, Adult I, Beatris Arreaga, personally scribed for Dr. Lawrence on 10/01/2024 12:13:56. Electronically signedby scribe Beatris Arreaga on 10/01/2024 12:13:56. Documentation recorded by the scribe, Beatris Arreaga, accurately reflects the services(s) I performed and decisions made by me. Authenticated by Dr. Lawrence on 10/01/2024 12:15:10. Problem List/Past Medical History Ongoing BPH with elevated PSA Diverticulitis Elevated PSA Hydrocele Microscopic hematuria Prostate cancer Testicular swelling, left Historical No qualifying data Procedure/Surgical History TRUS (transrectal ultrasound) guided cryoablation of prostate (09/14/2024), Colonoscopy, Colostomy,History of hernia repair. Medications amLODIPine 10 mg Tab, 10 mg= 1 tab(s), Oral, Daily Colace, See Instructions Allergies No Known Medication Allergies Social History Alcohol - Denies Alcohol Use, 08/23/2024 Substance Abuse - Medium Risk, 08/23/2024 Current, Marijuana, Daily, 08/23/2024 Tobacco - Denies Tobacco Use, 08/23/2024 Never (less than 100 in lifetime) Tobacco Use:. Never Smokeless Tobacco Use:., 10/01/2024 Family History Acute myocardial infarction: Father. Cancer: Mother. Immunizations Vaccine Date Status Comments SARS-CoV-2 (COVID-19) mRNA-1273 vaccine 08/11/2020 Recorded 2024-09-06: TPV60 SARS-CoV-2 (COVID-19) mRNA-1273 vaccine 07/14/2020 Recorded 2024-09-06: TPV60 Lab Results Ambulatory Point of Care Results Bilirubin Urine Dipstick: Negative (10/01/24 11:18:00) Blood Urine Dipstick: 1+ Small (10/01/24 11:18:00) Glucose Urine Dipstick: 3+ 1000 mg/dl (10/01/24 11:18:00) Ketones Urine Dipstick: Negative (10/01/24 11:18:00 (more content not included)...McKitrick HospitalComment on above:Result Comment: Electronically Signed By: Clarissa LAWRENCE MD\.br\Date and Time Signed: 10/01/24 12:15 EDT\.br\Electronically Co-Signed By: Beatris Arreaga.br\Date and Time Co-Signed: 10/02/2511:14 EDTProstate Histology ([facility])on [id number] HistologyDiagnosis InfoInvalid Interpretation [facility] CenterComment on above:Result Comment: A:Prostate,Left Lateral Base:Needle Biopsy Interpretation - - Benign prostatic tissue with focal chronic inflammation. MicroScopic Description - A:Prostate,Left Base:Needle Biopsy Interpretation - - Acinar adenocarcinoma of prostate; Willard score 6(3+3); Tumor measures 0.06 cm in length; 6% of the core involved by tumor; 1 of 1 core involved. MicroScopic Description - A:Prostate,Left Lateral Mid:Needle Biopsy Interpretation - - Benign prostatic tissue. MicroScopic Description - A:Prostate,Left Mid:Needle Biopsy Interpretation - - Acinar adenocarcinoma of prostate; Willard score 6(3+3); Tumor measures 0.15 cm in length; 10% of the core involved by tumor; 1 of 1 core involved. MicroScopic Description - A:Prostate,Left Lateral Hosmer:Needle Biopsy Interpretation - - Acinar adenocarcinoma of prostate; Willard score 7(3+4); Tumor measures 0.32 cm in length; 29% of the core involved by tumor; 1 of 1 core involved. MicroScopic Description - A:Prostate,Left Hosmer:Needle Biopsy Interpretation - - Acinar adenocarcinoma of prostate; Willard score 6(3+3); Tumor measures 0.24 cm in length; 14% of the core involved by tumor; 2 of 2 cores involved. MicroScopic Description - A:Prostate,Right Base:Needle Biopsy Interpretation - - Acinar adenocarcinoma of prostate; Archana score 7(3+4); Tumor measures 0.15 cm in length; 10% of the core involved by tumor; 1 of 1 core involved. MicroScopic Description - A:Prostate,Right Lateral Base:Needle Biopsy Interpretation - - Acinar adenocarcinoma of prostate; Willard score 7(3+4); Tumor measures 0.2 cm in length; 15% of the core involved by tumor; 1 of 1 core involved; Perineural invasion identified. MicroScopic Description - A:Prostate,Right Mid:Needle Biopsy Interpretation - - Benign prostatic tissue. MicroScopic Description - A:Prostate,Right Lateral Mid:Needle Biopsy Interpretation - - Benign prostatic tissue. MicroScopic Description - A:Prostate,Right Hosmer:Needle Biopsy Interpretation - - Acinar adenocarcinoma of prostate; Archana score 6(3+3); Tumor measures 0.1 cm in length; 10% of the core involved by tumor; 1 of 1 core involved. MicroScopic Description - A:Prostate,Right Lateral Hosmer:Needle Biopsy Interpretation - - Benign prostatic tissue. MicroScopic Description - Gross Description Site ID:A color ortiz-white fixative Formalin cores 1 units cm Site ID:B color ortiz-white fixative Formalin cores 1 units cm Site ID:C color ortiz-white fixative Formalin cores 1 units cm Site ID:D color ortiz-white fixative Formalin cores 1 units cm Site ID:E color ortiz-white fixative Formalin cores 1 units cm Site ID:F color ortiz-white fixative Formalin cores 2 units cm Site ID:G color ortiz-white fixative Formalin cores 1 units cm Site ID:H color ortiz-white fixative Formalin cores 1 units cm Site ID:I color ortiz-white fixative Formalin cores 1 units cm Site ID:J color ortiz-white fixative Formalin cores 1 units cm Site ID:K color ortiz-white fixative Formalin cores 1 units cm Site ID:L color ortiz-white fixative Formalin cores 1 units cm Highest grade group: Archana score 3+4=7, grade group 2. Highest percentage of core involvement: 29% Cribriform pattern 4: Not identified Perineural invasion: identified Highest percentage of Gleasonpattern 4: Approximately 5 % CPT: 77064 x 12 Electronically signed by : on: 09/27/2024 14:01:33Performed By: #### [id number] #### [facility] [address], [place] [address]Rvvvcwfb Histology ([facility])on [id number] Method of ExtractionNeedle BiopsyMcKitrick HospitalComment on above: Performed By: #### [id number] #### [facility] [address], [place] [address]AR Number of Mtpt6Spfsltv Interpretation [facility] CenterComment on above:Performed By: #### [id number] #### [facility] [address], [place] [address]DB Specimen 1R [facility] Comment on above:Performed By: #### [id number] #### [facility] [address], [place] [address]BO Specimen 10L Lat Mid [facility] Comment on above:Performed By: #### [id number] #### [facility] [address], [place] [address]CV Specimen 11L [facility] Comment on above:Performed By: #### [id number] #### [facility] [address], [place] [address]ZD Specimen 12L Lat Apx [facility] Comment on above:Performed By: #### [id number] #### [facility] [address], [place] [address]DI Specimen 2R Lat Bse [facility] Comment on above:Performed By: #### [id number] #### [facility] [address], [place] [address]EO Specimen 3R [facility] Comment on above:Performed By: #### [id number] #### [facility] [address], [place] [address]KH Specimen 4R Lat Mid [facility] Comment on above:Performed By: #### [id number] #### [facility] [address], [place] [address]FM Specimen 5R [facility] Comment on above:Performed By: #### [id number] #### [facility] [address], [place] [address]JD Specimen 6R Lat Apx [facility] Comment on above:Performed By: #### [id number] #### [facility] [address], [place] [address]MD Specimen 7L [facility] Comment on above:Performed By: #### [id number] #### [facility] [address], [place] [address]DL Specimen 8L Lat Bse [facility] Comment on above:Performed By: #### [id number] #### [facility] [address], [place] [address]SL Specimen 9L [facility] Comment on above:Performed By: #### [id number] #### [facility] [address] [facility], [place] [address]QM Type of ServiceTechnical [facility] HospitalComment on above:Performed By: #### [id number] #### [facility] [address], [place] [address]Wycmjvkvnt Visit Summaryon [id number] Visit Summary Ambulatory Visit Summary CIPRIANO ARZATE :1960 Visit Date:09/14/2024 Ambulatory Visit Instructions Your Diagnosis Elevated PSA Microscopic hematuria Your Care Team Attending Physician - MELINDA SANCHEZ, Clarissa Saldivar Primary Care Physician - YISSEL AREVALO CNP This Is Your Medications List Contact prescribing physician if questions or concerns amlodipine (amLODIPine 10 mg Tab) docusate (Colace) Procedures Performed TRUS (transrectal ultrasound) guided cryoablation of prostate (09/14/2024), Colonoscopy, Colostomy,History of hernia repair. Discharge Vitals Temperature (Temporal Artery) 36.8 ???C Heart Rate (Peripheral) 101 Respiratory Rate 16 Blood Pressure 130/100 Height 175 cm Height 69 in Weight 79 kg Weight 174.165 lb BMI 25.8 What to do next Scheduled Follow-Up Appointments Friday 1:15 PM EDT With: Clarissa LAWRENCE MD Where: [facility] [address] [place] [address]- You Need to Schedule the Following Appointments Follow Up with Clarissa LAWRENCE MD, URL When: Where: [facility] [address], [place] [address]- Medications What How Much When Instructions Unchanged amlodipine (amLODIPine 10 mg Tab) 1 Tablets By Mouth Every day Contact prescribing physician if questions or concerns Unchanged docusate (Colace) See instructions Oral BID Contact prescribing physician if questions orconcerns Medications and Immunizations Administered Given gentamicin 40 mg/mL Inj, 80 mg, IntraMuscular. For: Elevated PSA, Microscopic hematuria lidocaine 2% Inj 20 mL, 10 mL, Misc. For: Elevated PSA, Microscopic hematuria lidocaine 2% Inj 20 mL, 10 mL, Misc. For: Elevated PSA, Microscopic hematuria lidocaine Top 2% Gel w/Appl 11 mL, 22 mL, Topical. For: Elevated PSA, Microscopic hematuria lidocaine Top 2% Gel w/Appl 6 mL, 6 mL, Topical. For: Elevated PSA, Microscopic hematuria Allergies No Known Medication Allergies Problems Ongoing - Any problem that you are currently receiving treatment for. BPH with elevated PSA Diverticulitis Elevated PSA Microscopic hematuria Testicular swelling, left Patient Survey You may receive a survey via text or e-mail asking about your office visit. Please share your experience with us by completing your survey. We appreciate your feedback and thank you for choosing us for your care. Education Materials Transrectal Ultrasound-Guided Prostate Biopsy, Care After The following information offers guidance on how to care for yourself after your procedure. Your health care provider may also give you more specific instructions. If you have problems or questions, contact your health care provider. What can I expect after the procedure? After the procedure, it is common to have: ??? Pain and discomfort near your rectum, especially while sitting. ??? [place]-colored urine due to small amounts of blood in your urine. ??? A burning feeling while urinating. ??? Blood in your stool (feces) or bleeding from your rectum. ??? Blood in your semen. Follow these instructions at home: Medicines ??? Take iqdw-iih-qihnjzl and prescription medicines only as told by your health care provider. ??? If you were given a sedative during your procedure, it can affect you for several hours. Do not drive or operate machinery until your health care provider says that it is safe. ??? If you were prescribed an antibiotic medicine, take it as told by your health care provider. Do notstop using the antibiotic even if you start to feel better. Activity ??? Return to your normal activities as told by your health care provider. Ask your health care provider what activities are safe for you. ??? Ask your health care provider when it is okay for you to resume sexual activity. ??? You may have to avoid lifting. Ask your health care provider how much you can safely lift. General instructions ??? Drink enough fluid to keep your urine pale yellow. ??? Watch your urine, stool, and semen for new or increased bleeding. ??? Keep all follow-up visits. This is important. Contact a health care provider if: ??? You have any of the following: ? Blood clots in your urine or stool. ? Blood in your urine more than 2 weeks after the procedure. ? Blood in your semen more than 2 months after the procedure. ? New or increased bleeding in your urine, stool, or semen. ? Severe pain in your abdomen. ??? Your urine smells bad or unusual. ??? You have trouble urinating. ??? Your lower abdomen feels firm. ??? You have problems getting an erection. ??? You have nausea or you vomit. Get help right away if: ??? You have a fever or chills. This could be a sign of infection. ??? You have bright red urine. ??? You have severe pain that (more content not included)...[facility]Kit[facility] HospitalUrology Office/Clinic Noteon [id number] Office/Clinic Note Urology Office/Clinic Note Chief Complaint cysto, TRUS bx HPI Staff Cysto (cytol done) & TRUS/bx. Abx taken and edema done History of Present Illness Tests reviewed: cytology I have reviewed the previous health record information and history for this patient from Dr. Lawrence. I have reviewed and verified the staff HPI to be accurate for this encounter. Review of Systems PHQ Score Initial Depression Screen Score: 0 SCORE ROS - Provider Constitutional: denies weight loss, denies hot flashes. Eyes: denies eye problems. Gastrointestinal: denies nausea, denies vomiting. Cardiovascular: denies chest pain or angina. Integumentary: no dryness Musculoskeletal: denies musculoskeletal symptoms. ENMT: denies otolaryngeal symptoms. Respiratory: no shortness of breath. Heme/Lymph: denies easy bleeding tendency, denies easy bruising tendency. Psychiatric: no confusion, no anxiety. Genitourinary: See HPI. Physical Exam Vitals & Measurements T: 36.8 ???C(Temporal Artery) HR: 101(Peripheral) RR: 16 BP: 130/100 HT: 175 cm HT: 69 in WT: 174.165 lb WT: 79 kg BMI: 25.8 General Appearance: alert, no distress, well nourished, well developed male. Procedure Operative Information Anesthesia Type: Local Procedure: Local Cystoscopy Complications: None Surgical risks, benefits, details of the procedure have been explained to the patient. Full informed consent has been obtained. Intraoperative Information Prepped: Patient is brought back to the endoscopy suite. Patient is placed in supine position. Patient prepped in the usual fashion with Betadine solution. 2% Xylocaine Jelly is placed per Urethra. After waiting several minutes, the Cystoscope is introduced. The Urethra is: Normal The Prostatic Urethra is: _Trilobar obstruction The Bladder: _No tumor or stones, Trabeculated: Moderate (2), one fairly large diverticulum on the L posterior lateral wall. No tumors in the tic. The Ureteral orifices: Show efflux of clear urine Specimens Removed: None Removal: Cystoscope is removed. The patient tolerated it well. Postoperative Information Patient is discharged home with antibiotic coverage. Follow up arranged. Operative Information Anesthesia Type: Local Procedure: Transrectal Ultrasound and Transrectal Ultrasound-Guided Biopsy of the Prostate Complications: None Surgical risks, benefits, details of the procedure have been explained to the patient. Full informed consent has been obtained. Intraoperative Information Prepped: The patient was brought into the office suite and placed in the modified left lateral Simsposition. The patient was draped appropriately. 80 mg Gentamicin IM injection administered. Procedure: Then 2% Xylocaine jelly was used for intrarectal anesthesia. After waiting several minutes, a well lubricated ultrasound probe was introduced per rectum. The prostate was carefully evaluated in the AP and Sagittal views. Volume: 47 Specimens Removed: A total of 12 biopsies were taken, 6 from each side, and sent to pathology. Postoperative Information The patient tolerated the procedure well and was discharged home in satisfactory condition. The patient was instructed to finish antibiotics, avoid strenuous activity, and go to the emergency room for gross bleeding, fever, or chills. Radiology Report Procedure: Transrectal US guided needle biopsy of the prostate Narrative: Ultrasound probe is introduced and performed in the longitudinal and transverse plains. The prostatic capsule and seminal vesicles appear to be within normal limits. Ultrasound guidance was then utilized to obtain 12 biopsies. These were sent to pathology for evaluation. The gland measures: 44.18 MM Length, 37.06 MM Width, 5.55 MM Depth, with a calculated volume of 47 CC. The peripheral zone demonstrates: No abnormalities Rest of the prostate demonstrates: No abnormalities Assessment/Plan 1. Elevated PSA (R97.20: Elevated prostate specific antigen [PSA]) PSA: 08/09/24 - 13 & 10.2% *only level on record No known fam hx of pros ca. JEANETTE 08/23/24 - 35g, benign Pt had IO TRUS/bx today wo complications. Follow up 2 wks to rev path or sooner if needed. Pt understands and agrees with plan. 2. Microscopic hematuria (R31.29: Other microscopic hematuria) CT AP w con 11/26/23 [facility] - Neg. Cytology showed mild atypia. Pt had IO cysto today wo complications. Reviewed cytology with pt. This complete hematuria workup which was neg. Follow-up With When Contact Information MELINDA SANCHEZ, Clarissa R, URL [facility] [address] [place] [address]- Additional Instructions: 2 wks to rev path Patient Education Transrectal Ultrasound-Guided Prostate Biopsy, Care After IEse, personally scribed for Dr. Lawrence on 09/14/2024 16:14:15. . Documentation recorded by the scribe, (more content not included)...[facility]Kitrick HospitalComment on above:Result Comment: Electronically Signed By: Clarissa LAWRENCE MD\.br\Date and Time Signed: 09/14/24 16:26 EDT\.br\Electronically Co-Signed By: Ese Clarke\.br\Date and Time Co- Signed: 09/14/24 16:25 EDTUrine Cytology ([facility])on 68-78-2877Cduidwavoso exam Cytology (U) [Interp]Diagnosis InfoInvalid Interpretation [facility] Medical CenterComment on above:Result Comment: A:Urine,Urine:Voided Interpretation - A few clusters of urothelial cells with mild atypia; as voided urine, low grade papillary urothelial neoplasm can not be excluded. Clinical correlation is indicated. Adequate [place]ity [place] [address] MicroScopic Description - Adequacy - Gross Description Site ID:A color Light Yellow fixative Alcohol Specimen designated Urine received in alcohol preservative and labeled with the patient???s name, consists of 40ml clear light yellow fluid. Electronically signed by : on: 08/30/2024 11:03:23Performed By: #### [id number] #### [facility] [address] [place], [place] [address]Rbxucxoruv Visit Summaryon 08-78-5635Qqiluhqjjx Visit Summary Ambulatory Visit Summary CIPRIANO ARZATE :1960 Visit Date:08/23/2024 Ambulatory Visit Instructions Your Diagnosis Elevated PSA Microscopic hematuria Testicular swelling, left Your Care Team Attending Physician - Clarissa LAWRENCE MD Primary Care Physician - YISSEL AREVALO CNP Referring Physician - YISSEL AREVALO CNP This Is Your Medications List ciprofloxacin (Cipro 500 mg Tab) Contact prescribing physician if questions or concerns amlodipine (amLODIPine 10 mg Tab) docusate (Colace) Procedures Performed Colonoscopy, Colostomy, History of hernia repair. Discharge Vitals Heart Rate (Peripheral) 87 Respiratory Rate 20 Blood Pressure 142/91 Height 175 cm Height 69 in Weight 79 kg Weight 174.165 lb BMI 25.8 What to do next Scheduled Follow-Up Appointments Friday 1:15 PM EDT With: Clarissa LAWRENCE MD Where: [facility] [address] [place] [address]- You Need to Schedule the Following Appointments Follow Up with Clarissa LAWRENCE MD, URL When: Where: [facility] [address], [place] [address]- [phone] Medications What How Much When Instructions New ciprofloxacin (Cipro 500 mg Tab) 1 Tablets By Mouth 2 times a day Duration: 7 Days start 3 daysprior to procedure Pickup at [facility] Unchanged amlodipine (amLODIPine 10 mg Tab) 1 Tablets By Mouth Every day Contact prescribing physician if questions or concerns Unchanged docusate (Colace) See instructions Oral BID Contact prescribing physician if questions orconcerns Pharmacy Information [facility]: [address] [place], [place] [phone] Allergies No Known Medication Allergies Problems Ongoing - Any problem that you are currently receiving treatment for. BPH with elevated PSA Diverticulitis Elevated PSA Microscopic hematuria Testicular swelling, left Patient Survey You may receive a survey via text or e-mail asking about your office visit. Please share your experience with us by completing your survey. We appreciate your feedback and thank you for choosing us for your care. Education Materials Transrectal Ultrasound-Guided Prostate Biopsy, Care After The following information offers guidance on how to care for yourself after your procedure. Your health care provider may also give you more specific instructions. If you have problems or questions, contact your health care provider. What can I expect after the procedure? After the procedure, it is common to have: ??? Pain and discomfort near your rectum, especially while sitting. ??? [place]-colored urine due to small amounts of blood in your urine. ??? A burning feeling while urinating. ??? Blood in your stool (feces) or bleeding from your rectum. ??? Blood in your semen. Follow these instructions at home: Medicines ??? Take aamg-ypk-awohjbf and prescription medicines only as told by your health care provider. ??? If you were given a sedative during your procedure, it can affect you for several hours. Do not drive or operate machinery until your health care provider says that it is safe. ??? If you were prescribed an antibiotic medicine, take it as told by your health care provider. Do notstop using the antibiotic even if you start to feel better. Activity ??? Return to your normal activities as told by your health care provider. Ask your health care provider what activities are safe for you. ??? Ask your health care provider when it is okay for you to resume sexual activity. ??? You may have to avoid lifting. Ask your health care provider how much you can safely lift. General instructions ??? Drink enough fluid to keep your urine pale yellow. ??? Watch your urine, stool, and semen for new or increased bleeding. ??? Keep all follow-up visits. This is important. Contact a health care provider if: ??? You have any of the following: ? Blood clots in your urine or stool. ? Blood in your urine more than 2 weeks after the procedure. ? Blood in your semen more than 2 months after the procedure. ? New or increased bleeding in your urine, stool, or semen. ? Severe pain in your abdomen. ??? Your urine smells bad or unusual. ??? You have trouble urinating. ??? Your lower abdomen feels firm. ??? You have problems getting an erection. ??? You have nausea or you vomit. Get help right away if: ??? You have a fever or chills. This could be a sign of infection. ??? You have bright red urine. ??? You have severe pain that does not get better with medicine. ??? You cannot urinate. Summary ??? After this procedure, it is common to have pain and discomfort around your rectum, especially whilesitting. ??? You may have blood i (more content not included)...McKitrick HospitalUrine Cytology ([facility])on 05-31-5885SZ Method of ExtractionVoidedNormal [facility] HospitalComment on above:Performed By: #### [id number] #### [facility] [address] [place], [place] [address]JJ Number of Evxu3Ncmpemm Interpretation CodeGeorgetown Behavioral HospitalComment on above:Performed By: #### [id number] #### [facility] [address] [place] [address]HS SpecimenUrineNormDoctors HospitalComment on above:Performed By: #### [id number] #### [facility] [address] [place] [address]MS Type of ServiceTechnical OnlyMcKitrick HospitalComment on above:Performed By: #### [id number] #### [facility] [address] [place] [address]HCV TOTAL+% FREEon 08-10-2024% FREE PSA10.2 %.[facility] Comment on above:The table below lists the probability of prostate [...] any other population of men. Performed at: - [facility] [id number] Point Of Sale Associate: Dandre Silverman PhD, Phone: [phone] Interpretation and review of laboratory resultsAbnormalNOMS HealthcareProstate specific Ag [Mass/Vol]13.0 ng/mLAbnormal0.0 - 4.0 ng/mLNOMS HealthcareComment on above:Gó[employer]z ECLIA methodology. According to the [place] [employer], Serum PSA should decrease and [...] presence or absence of malignant disease. PSA, FREE1.32 ng/mLN/ANOMS HealthcareComment on above:Gómez ECLIA methodology. CLINISYNCMercy Hospital WashingtonALL CBC WITH AUTO DIFFon 13-99-1589NMNHNLQLS ABSOLUTE AUTO0.1NOMS HealthcareBasophils/100 WBC (Bld)0.9 %0.2 - 2.0 %[facility] Eosinophils/100 WBC (Bld)1.3 %0.9 - 7.0 %[facility] WashingtonErythrocyte distribution width (RBC) [Ratio]13.4 %11.0 - 15.0 %[facility] WashingtonHematocrit (Bld) [Volume fraction]51 %42.0 - 54.0 %[facility] WashingtonHemoglobin (Bld) [Mass/Vol]16.9 g/dL 14.0 - 18.0 g/dLMercy Hospital WashingtonIMMATURE GRANULOCYTES ABS AUTO0.05HighNOSaint Joseph Hospital WestImmature granulocytes/100 WBC (Bld)0.5 %0.0 - 0.5 %[facility] Interpretation and review of laboratory resultsAbnormalMercy Hospital Washington LYMPHOCYTES ABSOLUTE AUTO3.2NOMS [facility] HospitalLymphocytes/100 WBC (Bld)34.7 %20.5 - 60.0 %[facility] CenterH (RBC) [Entitic mass]31.5 pg25.9 - 34.0 pgNevada Regional Medical CenterHC (RBC) [Mass/Vol]33.1 g/dL29.9 - 35.2 g/dLNevada Regional Medical CenterV (RBC) [Entitic vol]95 dPKfrv87.0 - 94.0 fLMercy Hospital WashingtonMONOCYTES ABSOLUTE AUTO0.8 [facility] HealthcareMonocytes/100 WBC (Bld)8.3 %1.7 - 12.0 %[facility] NEUTROPHILS ABSOLUTE PABV5JTYXSaint Joseph Hospital WestNeutrophils/100 WBC (Bld)54.3 %43.0 - 75.0 %[facility] WashingtonPlatelet mean volume (Bld) [Entitic vol]10 fL9.5 - 13.5 fL [facility] EO #0.1NOMS [facility] URJ674WEGV HealthcareWALTHAM HOSPITAL RBC5.37 [facility] WBC9.1NJIM [facility] HealthcareCLINISYNCNJIM [facility] HealthcareECG 12 leadon 73-07-4820YATOMGKWDIJKYQNwbCeyyyr Health SystemSurgical Pathologyon 01-09-20[address] PathologyNormalProSt. Elizabeth HospitalComment on above:Result Comment: [facility] [address] [place] [address] Surgical Pathology Consultation Patient Name:CIPRIANO ARZATE:1960 (Age: 63)Gender:MTaken:01/09/2024eported:01/13/2024hysician(s):Abdirashid Boss M.D. ( )Copy To: Rec. #:[id number]: #[id number] Final Pathologic Diagnosis Transverse colon polyps, biopsy: Tubular adenoma and hyperplastic polyp. Report Electronically Signed Out [facility]/01/13/2024Sukerry Mayes M.D. Interpretation performed at [facility], [address] [place] [address], License number: [id number]. Clinical History Colostomy status. Gross Description Received in formalin labeled WHITE, transverse polyps are 2 ortiz soft tissue bits, 0.2 cm each. The specimen is filtered and submitted entirely in a single cassette. (1, ns, [id number], m3) med/01/09/2024GP Specimen(s) Received Transverse colon polyps Fee Codes(s): 1; 69316BJNJO METABOLIC PANLon 44-73-9034Vzbem gap [Moles/Vol]11 mmol/LNormal 09-09[facility], AvonComment on above:Performed By: #### CBCA, PINR, 53553-8, 65577-8, BMP, 75102-7, 2777-1 #### [facility] ([id number]) [address] [place] [address], [address] [facility] [place] [address]Erubuwi [Mass/Vol]10.0 mg/dLNormal8.5-10.5PMercy HealthComment on above:Performed By: #### GEOFFREY, PINR, 70897-8, 53260-0, BMP, 01724-6, 7-1 #### [facility] ([id number]) [address], [address] [place], [place] [address]Ifdfidzp [Moles/Vol]103 mmol/VStobgv73-238PktGfmomi [facility] HospitalComment on above:Performed By: #### CBCMaribel, PINR, 19656-0, 02058-6, BMP, 97844-2, 7-1 #### [facility] ([id number]) [address], [address] [place], [place] [address]BE3 [Moles/Vol]27 mmol/DBshfff86-32WaaLzjbqg [facility] Comment on above:Performed By: #### GEOFFREY, PINR, 70656-6, 61595-1, BMP, 28195-6, 7-1 #### [facility] ([id number]) [address], [address] [place], [place] [address]Iskglwpesb [Mass/Vol]1.00 mg/dLNormal0.60-1.30ProSt. Elizabeth HospitalComment on above:Result Comment: METHOD TRACEABLE TO IDMS STANDARD Performed By: #### CBCMaribel, PINR, 01582-5, 43829-8, BMP, 24070-5, 7-1 #### [facility] ([id number]) [address], [address] [place], [place] [address]FNS/1.73 sq M.predicted among non-blacks MDRD (S/P/Bld) [Vol rate/Area]84 mL/min/{1.73_m2}Normal>59ProSt. Elizabeth HospitalComment on above: Result Comment: Reported eGFR is based on the CKD-EPI 2020 equation that does not use a race coefficient.Performed By: #### CBCA, PINR, 39841-7, 98901-8, BMP, 06874-6, 2776-1 #### [facility] ([id number]) [address], [address] [place], [place] [address]Qrrbsdy [Mass/Vol]119 mg/jLHjzf36-33YmpOragptSt. Elizabeth Hospital Comment on above:Performed By: #### CBCA, PINR, 96727-5, 36394-4, BMP, 56910-1, 2776-1 #### [facility] ([id number]) [address], [address] [place], [place] [address]Trhhzxnwi [Moles/Vol]3.8 mmol/LNormal3.5-5.0ProVeterans Health Administration HospitalComment on above:Performed By: #### CBCA, PINR, 62691-8, 79423-8, BMP, 19337-3, 2776-1 #### [facility] ([id number]) [address], [address] [place], [place] [address]Cdqxit [Moles/Vol]141 mmol/WZxchdb685-366GwtZhgzuv [place] HospitalComment on above:Performed By: #### CBCA, PINR, 35803-4, 94581-8, BMP, 37633-6, 2776-1 #### [facility] ([id number]) [address], [address] [place], [place] [address]Jyev nitrogen [Mass/Vol]16 mg/dLNormal5-27ProVeterans Health Administration HospitalComment on above:Performed By: #### CBCA, PINR, 27601-5, 54755-6, BMP, 96984-5, 2776-1 #### [facility] ([id number]) [address], [address] [place], [place] [address]Qisxc Metabolic Panelon 76-42-2713Nxedb gap [Moles/Vol]11 mmol/L 5 - 15 mmol/LProMedica Health SystemCalcium [Mass/Vol]10.0 mg/dL8.5 - 10.5 mg/dL [facility] SystemChloride [Moles/Vol]103 mmol/L98 - 109 mmol/[facility] ToVieFor SystemCO2 [Moles/Vol]27 mmol/L22 - 32 mmol/[facility] System Creatinine [Mass/Vol]1.00 mg/dL0.60 - 1.30 mg/dLThe Jewish HospitalComment on above:METHOD TRACEABLE TO [facility] STANDARDeGFR (CKD-EPI)non-race ymavzcypb48- PINMissouri Baptist Medical CenterComment on above: Reported eGFR is based on the CKD-EPI 2020 equation that does not use a race coefficient. Glucose [Mass/Vol]119 mg/dEBgqr75 - 99 mg/dLThe Jewish Hospital Interpretation and review of laboratory resultsAbnormalThe Jewish Hospital Potassium [Moles/Vol]3.8 mmol/L3.5 - 5.0 mmol/[facility] Health SystemSodium [Moles/Vol]141 mmol/L134 - 146 mmol/[facility] ToVieFor SystemUrea nitrogen [Mass/Vol]16 mg/dL5 - 27 mg/dLEvangelical Community HospitalCT ABDOMEN AND PELVIS W CONTon 01-15-7331PD ABDOMEN AND PELVIS W CONTCT ABDOMEN AND PELVIS W CONT History: Parastomal [...] adenopathy are seen. No pelvic masses, adenopathy, orfluid collections are identified. The appendix is normal [...] by Jaun Gay MD on 11/27/2023 10:50 AMNormalProUniversity Hospitals Parma Medical Centerca [facility] Health SystemCREATININEon 28-51-1914Trrygdmnhu [Mass/Vol]0.97 mg/dLNormal0.60-1.30 [facility]ica [facility] Health SystemComment on above:Result Comment: METHOD TRACEABLE TO IDMS STANDARDPerformed By: #### CBCA, PINR, 63174-6, 88260-8, BMP, 83777-2, 2777-1 #### [facility] ([id number]) [address] [facility] [facility] [place], [place] [address]KIT/1.73 sq M.predicted among non-blacks MDRD (S/P/Bld) [Vol rate/Area]87 mL/min/{1.73_m2}Normal>59ProSt. Elizabeth HospitalComment on above: Result Comment: Reported eGFR is based on the CKD-EPI 2020 equation that does not use a race coefficient.Performed By: #### CBCA, PINR, 77055-9, 39882-6, BMP, 67791-4, 2777-1 #### [facility] ([id number]) [address] [facility] [place], [place] [address]LQRZU METABOLIC PANLon 91-26-1746Qdurb gap [Moles/Vol]10 mmol/L Normal5-15ProSt. Elizabeth HospitalComment on above:Performed By: #### CBCA, PINR, 01204-5, 45671-8, BMP, 30099-5, 2776-1 #### [facility] ([id number]) [address] [facility] [facility], [address] [place], [place] [address]Sdbtapa [Mass/Vol]8.5 mg/dLNormal8.5-10.5ProMedica [facility] Health SystemComment on above:Performed By: #### CBCA, PINR, 21616-6, 29135-4, BMP, 83931-8, 2777-1 #### [facility] ([id number]) [address], [address] [place], [place] [address]Oqymwfau [Moles/Vol]101 mmol/ONkkcwp69-936KdmAdwzjn [facility] HospitalComment on above:Performed By: #### CBCA, PINR, 83736-1, 76248-2, BMP, 37626-3, 2776-1 #### [facility] ([id number]) [address], [address] [place], [place] [address]YZ2 [Moles/Vol]26 mmol/MUgwirr71-39IdpXoakgyMercy Health Comment on above:Performed By: #### CBCA, PINR, 90356-1, 95917-8, BMP, 40663-6, 2776-1 #### [facility] ([id number]) [address], [address] [place], [place] [address]Hzummbyisx [Mass/Vol]0.78 mg/dLNormal0.60-1.30ProSt. Elizabeth HospitalComment on above:Result Comment: METHOD TRACEABLE TO IDMS STANDARD Performed By: #### CBCA, PINR, 88016-7, 86340-2, BMP, 70218-9, 2776- #### [facility] ([id number]) [address], [address] [place], [place] [address]bPYO (CKD-EPI) NON-RACE DEPENDENT>90Normal>59ProSt. Elizabeth HospitalComment on above:Result Comment: Reported eGFR is based on the CKD-EPI 2020 equation that does not use a race coefficient.Performed By: #### CBCA, PINR, 07006-1, 62764-4, BMP, 16545-5, 7-1 #### [facility] ([id number]) [address], [address] [place], [place] [address]Pbcdlxg [Mass/Vol]94 mg/lBOvwsbf79-10EaoQjucglSelect Medical [facility] Comment on above:Performed By: #### CBCA, PINR, 56006-3, 06385-9, BMP, 68840-7, 2777-1 #### [facility] ([id number]) [address], [address] [place], [place] [address]Uynbntsas [Moles/Vol]3.6 mmol/LNormal3.5-5.0ProMedica Schwartz HospitalComment on above:Performed By: #### CBCA, PINR, 77783-6, 86740-3, BMP, , 2776-04 #### [facility] ([id number]) [address], [address] [place], [place] [address]Krxibt [Moles/Vol]137 mmol/TWsofca327-216RsxZcdfgu Schwartz HospitalComment on above:Performed By: #### CBCA, PINR, 02153-0, 12690-8, BMP, , 2776-04 #### [facility] ([id number]) [address], [address] [place], [place] [address]Kqgh nitrogen [Mass/Vol]16 mg/dLNormal5-27ProMedica Schwartz HospitalComment on above:Performed By: #### CBCA, PINR, 40176-9, 65105-9, BMP, , 2776-04 #### [facility] ([id number]) [address], [address] [place], [place] [address]YJI AND AUTO DIFFon 37-93-9062AIEOACRU BASOPHIL0.0 X10E9/LNormal 0.0-0.2ProMedica Schwartz HospitalComment on above:Performed By: #### CBCA, PINR, 21445-8, 33008-6, BMP, , 2776-04 #### [facility] ([id number]) [address], [address] [place], [place] [address]MAYHQFJU NEUTROPHIL7.9 X10E9/LHigh1.5-6.6ProMedica Schwartz HospitalComment on above:Performed By: #### CBCA, PINR, 70983-8, 27263-9, BMP, 50299-0, 2776- #### [facility] ([id number]) [address], [address] [place], [place] [address]Cxgcllijf/100 WBC (Bld)0.2 %NormalSelect Medical [facility] Clinic [facility] [place] Comment on above:Performed By: #### CBCA, PINR, 74926-8, 13802-4, BMP, 27657-6, 2776- #### [facility] ([id number]) [address], [address] [place] [address]Qyjdylnhqon (Bld) [#/Vol]0.1 10*3/uLNormal0.0-0.4ProSt. Elizabeth HospitalComment on above:Performed By: #### CBCA, PINR, 21909-1, 99054-7, BMP, 58607-6, 2776-04 #### [facility] ([id number]) [address], [facility] [address] [place], [place] [address]Lqsgraxddsj/100 WBC (Bld)1.0 %NormalSelect Medical [facility] Clinic [facility] [place] Comment on above:Performed By: #### CBCA, PINR, 35556-6, 58855-2, BMP, 00856-8, 2776-04 #### [facility] ([id number]) [address] [address]Oqlraabamvt distribution width (RBC) [Ratio]14.0 %Normal 11.5-15.0ProSt. Elizabeth HospitalComment on above:Performed By: #### CBCA, PINR, 40519-9, 61878-1, BMP, 41452-4, 2776- #### [facility] ([id number]) [address], [address] [place], [place] [address]Vwuxodulxe (Bld) [Volume fraction]43.7 %Cdjwba26-86QmiFqeeey [facility] HospitalComment on above:Performed By: #### CBCA, PINR, 23539-2, 95590-1, BMP, 70117-0, 7-1 #### [facility] ([id number]) [address], [address] [place], [place] [address]Hkyvennnex (Bld) [Mass/Vol]14.4 g/iCZrhnbi53.0-17.0ProUniversity Hospitals Parma Medical Centerca Corydon HospitalComment on above:Performed By: #### CBCA, PINR, 46265-9, 67414-3, BMP, 33950-5, 2776-1 #### [facility] ([id number]) [address], [address] [place], [place] [address]Ytirsokywls (Bld) [#/Vol]1.2 10*3/uLNormal1.0-3.5ProMedica Corydon HospitalComment on above:Performed By: #### CBCA, PINR, 48271-4, 19331-3, BMP, 51630-3, 2776- #### [facility] ([id number]) [address], [address] [place], [place] [address]Gwoxjwkeikt/100 WBC (Bld)11.0 %NormalProVeterans Health Administration Hospital Comment on above:Performed By: #### CBCA, PINR, 53398-6, 89921-9, BMP, 84053-2, 2776-1 #### [facility] ([id number]) [address], [address] [place], [place] [address]FKQ (RBC) [Entitic mass]31.2 ohJsmhxa65-63FgbZxzuzg [place] HospitalComment on above:Performed By: #### CBCA, PINR, 26668-7, 54523-2, BMP, 26884-9, 2776-1 #### [facility] ([id number]) [address], [address] [place], [place] [address]HIYB (RBC) [Mass/Vol]33.0 g/dXKvxaym20-82PifWqzmdu [place] HospitalComment on above:Performed By: #### CBCA, PINR, 41811-7, 71253-4, BMP, 96853-6, 2777-1 #### [facility] ([id number]) [address], [address] [place], [place] [address]NVP (RBC) [Entitic vol]95 gHBnnbhm22-197QpmCzviqq [place] HospitalComment on above:Performed By: #### CBCA, PINR, 07265-4, 76817-5, BMP, 45805-3, 2776- #### [facility] ([id number]) [address], [address] [place], [place] [address]Egtydrbib (Bld) [#/Vol]1.6 10*3/uLHigh0-0.9ProSt. Elizabeth HospitalComment on above:Performed By: #### CBCA, PINR, 16829-1, 73925-1, BMP, 00945-5, 2776- #### [facility] ([id number]) [address], [address] [place], [place] [address]Gngsaigno/100 WBC (Bld)14.8 %NormalSelect [facility] [place] Comment on above:Performed By: #### CBCA, PINR, 75719-7, 88695-8, BMP, 43886-5, 2776-1 #### [facility] ([id number]) [address], [address] [place], [place] [address]Ptsbsdtmsoa/100 WBC (Bld)73.0 %NormalSelect Medical [facility] [place] Comment on above:Performed By: #### CBCA, PINR, 67464-1, 32999-8, BMP, 92575-1, 2776-1 #### [facility] ([id number]) [address], [address] [place], [place] [address]Gilwbfyv mean volume (Bld) [Entitic vol]8.2 fLNormal7-12 [facility] HospitalComment on above:Performed By: #### CBCA, PINR, 61622- 9, 42975-6, BMP, 51117-1, 2777-1 #### [facility] ([id number]) [address], [address] [place], [place] [address]Zpkrfiwhf (Bld) [#/Vol]315 10*3/pGLgajbg401-356NjaOxocgv [facility] HospitalComment on above:Performed By: #### CBCA, PINR, 62130-6, 91028-3, BMP, 62619-2, 2777-1 #### [facility] ([id number]) [address], [address] [place], [place] [address]IOW COUNT4.62 X10E12/LNormal4.10-5.70ProV[facility]ans Health Administration Hospital Comment on above:Performed By: #### CBCA, PINR, 61979-1, 69113-2, BMP, 61844-3, 2776-1 #### [facility] ([id number]) [address], [address] [place], [place] [address]WAJ (Bld) [#/Vol]10.8 10*3/uLNormal4.0-11.0ProMedica Corydon HospitalComment on above:Performed By: #### CBCA, PINR, 01329-9, 52499-1, BMP, 63569-8, 7-1 #### [facility] ([id number]) [address], [address] [place], [place] [address]QADIHPNPMbd 60-21-7259Nrvwudlpp [Mass/Vol]2.4 mg/dLNormal1.8-2.6 [facility] HospitalComment on above:Performed By: #### CBCA, PINR, 46856- 9, 72725-9, BMP, 96254-5, 2777-1 #### [facility] ([id number]) [address], [address] [place], [place] [address]Ztjmisvsz [Mass/Vol]1.9 mg/dLNormal1.8-2.6ProSt. Elizabeth HospitalComment on above:Performed By: #### CBCA, PINR, 56908-1, 75538-9, BMP, 28309-8, 2776-1 #### [facility] ([id number]) [address], [address] [place], [place] [address]SSPBSKFPJQkt 19-34-7571Rbkpsmase [Mass/Vol]2.6 mg/dLNormal 2.4-4.9ProVeterans Health Administration HospitalComment on above:Performed By: #### CBCA, PINR, 32406-0, 26602-5, BMP, 26378-8, 2776-1 #### [facility] ([id number]) [address], [address] [place], [place] [address]FBCZCMVPJdx 46-93-0019Wcctnmjxv [Moles/Vol]3.9 mmol/LNormal 3.5-5.0ProVeterans Health Administration HospitalComment on above:Performed By: #### CBCA, PINR, 25271-6, 57326-2, BMP, 67058-0, 2776-1 #### [facility] ([id number]) [address], [address] [place], [place] [address]ICICL METABOLIC PANLon 01-74-2444Owfnn gap [Moles/Vol]6 mmol/L Normal5-15ProVeterans Health Administration HospitalComment on above:Performed By: #### CBCA, PINR, 85873-4, 67992-9, BMP, 55035-6, 2776-1 #### [facility] ([id number]) [address], [address] [place], [place] [address]Tztdfqf [Mass/Vol]8.4 mg/dLLow8.5-10.5[facility] Comment on above:Performed By: #### CBCA, PINR, 06421-3, 44989-6, BMP, 19550-0, 2776-1 #### [facility] ([id number]) [address], [address] [place], [place] [address]Nfvkdjvp [Moles/Vol]99 mmol/IGnnhwa00-547YhjZgmott [place] HospitalComment on above:Performed By: #### CBCA, PINR, 15984-5, 41348-0, BMP, 33124-2, 2776- #### [facility] ([id number]) [address], [address] [place], [place] [address]SZ0 [Moles/Vol]30 mmol/HFrjnco85-46SzqWhpwfsMercy Health Comment on above:Performed By: #### CBCA, PINR, 86632-4, 77795-7, BMP, 22348-3, 2776- #### [facility] ([id number]) [address], [address] [place], [place] [address]Ctesspgfnd [Mass/Vol]0.80 mg/dLNormal0.60-1.30ProSt. Elizabeth HospitalComment on above:Result Comment: METHOD TRACEABLE TO IDMS STANDARD Performed By: #### CBCA, PINR, 11998-0, 61160-1, BMP, 91831-6, 2776- #### [facility] ([id number]) [address], [address] [place], [place] [address]zTTA (CKD-EPI) NON-RACE DEPENDENT>90Normal>59ProSt. Elizabeth HospitalComment on above:Result Comment: Reported eGFR is based on the CKD-EPI 2020 equation that does not use a race coefficient.Performed By: #### CBCA, PINR, 20972-5, 47087-8, BMP, 74502-4, 2776-1 #### [facility] ([id number]) [address], [address] [place], [place] [address]Mzxbtcn [Mass/Vol]95 mg/vNIiqakv61-05AcmZwzmtwSelect Medical [facility] [place] Comment on above:Performed By: #### CBCA, PINR, 64309-3, 19378-0, BMP, 74608-8, 2777-1 #### [facility] ([id number]) [address], [address] [place], [place] [address]Uesuxejel [Moles/Vol]4.2 mmol/LNormal3.5-5.0ProMedica Schwartz HospitalComment on above:Performed By: #### CBCA, PINR, 28603-7, 79648-8, BMP, , 2776- #### [facility] ([id number]) [address], [address] [place], [place] [address]Gcmuiz [Moles/Vol]135 mmol/HRzrvwe738-352FuoQbvzhr Schwartz HospitalComment on above:Performed By: #### CBCA, PINR, 49672-9, 34346-6, BMP, , 2776-04 #### [facility] ([id number]) [address], [address] [place], [place] [address]Lkqt nitrogen [Mass/Vol]15 mg/dLNormal5-27Pro[facility] Schwartz HospitalComment on above:Performed By: #### CBCA, PINR, 38523-4, 88080-3, BMP, , 2776-04 #### [facility] ([id number]) [address], [address] [place], [place] [address]MIZ AND AUTO DIFFon 44-19-3536BCNGLFJM BASOPHIL0.0 X10E9/LNormal 0.0-0.2ProMedica Schwartz HospitalComment on above:Performed By: #### CBCA, PINR, 40761-1, 86210-3, BMP, , 2776-04 #### [facility] ([id number]) [address], [address] [place], [place] [address]NKANNQNB NEUTROPHIL7.0 X10E9/LHigh1.5-6.6ProMedica Schwartz HospitalComment on above:Performed By: #### CBCA, PINR, 66531-6, 81818-6, BMP, 40176-3, 2776- #### [facility] ([id number]) [address], [address] [place], [place] [address]Qyaokvaub/100 WBC (Bld)0.3 %NormalSelect Medical [facility] [place] Comment on above:Performed By: #### CBCA, PINR, 94383-5, 31316-3, BMP, 76833-1, 2776- #### [facility] ([id number]) [address], [address] [place], [place] [address]Ytdheavncoa (Bld) [#/Vol]0.1 10*3/uLNormal0.0-0.4ProSt. Elizabeth HospitalComment on above:Performed By: #### CBCA, PINR, 95544-4, 02838-5, BMP, 27508-9, 2776-04 #### [facility] ([id number]) [address], [address] [place], [place] [address]Rrdjqeqwbiw/100 WBC (Bld)1.1 %NormalSelect Medical [facility] [place] Comment on above:Performed By: #### CBCA, PINR, 93830-7, 31097-7, BMP, 76377-8, 2776-04 #### [facility] ([id number]) [address], [address] [place], [place] [address]Anklliotovn distribution width (RBC) [Ratio]14.1 %Normal 11.5-15.0ProSt. Elizabeth HospitalComment on above:Performed By: #### CBCA, PINR, 55630-1, 35939-2, BMP, 91992-2, 2776- #### [facility] ([id number]) [address], [address] [place], [place] [address]Yrfjlflcdu (Bld) [Volume fraction]43.1 %Wpwxqb74-44OumFxfrsz [place] HospitalComment on above:Performed By: #### CBCA, PINR, 64280-4, 83604-2, BMP, 63003-0, 2777-1 #### [facility] ([id number]) [address], [address] [place], [place] [address]Pokwaypgvm (Bld) [Mass/Vol]14.7 g/rYAzbvxp85.0-17.0ProVeterans Health Administration HospitalComment on above:Performed By: #### CBCA, PINR, 94506-8, 75842-8, BMP, 21592-8, 7-1 #### [facility] ([id number]) [address], [address] [place], [place] [address]Udtrgqtgaij (Bld) [#/Vol]1.2 10*3/uLNormal1.0-3.5Pro[facility] HospitalComment on above:Performed By: #### CBCA, PINR, 62123-8, 32336-0, BMP, 10455-4, 2776-1 #### [facility] ([id number]) [address], [address] [place], [place] [address]Kcacmltsulm/100 WBC (Bld)12.2 %NormalProVeterans Health Administration Hospital Comment on above:Performed By: #### CBCA, PINR, 19652-0, 29386-2, BMP, 92741-2, 2776-1 #### [facility] ([id number]) [address], [address] [place], [place] [address]KNA (RBC) [Entitic mass]31.7 niAvphnq11-23YjiIvafvx [place] HospitalComment on above:Performed By: #### CBCA, PINR, 30871-6, 37337-1, BMP, 79350-0, 2777-1 #### [facility] ([id number]) [address], [address] [place], [place] [address]KFOV (RBC) [Mass/Vol]34.0 g/fPRmbcxp34-07ThmHfwcvq [place] HospitalComment on above:Performed By: #### CBCA, PINR, 54758-6, 02655-2, BMP, 18482-7, 2777-1 #### [facility] ([id number]) [address], [address] [place], [place] [address]AAN (RBC) [Entitic vol]93 lMWaphkq48-709MnbXfpzxm [facility] HospitalComment on above:Performed By: #### CBCA, PINR, 92146-1, 96209-8, BMP, 46234-2, 7- #### [facility] ([id number]) [address], [address] [place], [place] [address]Jpxshmjxp (Bld) [#/Vol]1.3 10*3/uLHigh0-0.9ProVeterans Health Administration HospitalComment on above:Performed By: #### CBCA, PINR, 79992-2, 56462-8, BMP, 86938-0, 2776- #### [facility] ([id number]) [address], [address] [place], [place] [address]Qhiktnlsa/100 WBC (Bld)13.4 %NormalSelect Medical [facility] [place] Comment on above:Performed By: #### CBCA, PINR, 62106-5, 79402-9, BMP, 07136-3, 2776-1 #### [facility] ([id number]) [address], [address] [place], [place] [address]Gqepyqqzzub/100 WBC (Bld)73.0 %NormalSelect Medical [facility] [place] Comment on above:Performed By: #### CBCA, PINR, 48536-9, 62829-0, BMP, 70544-8, 277-1 #### [facility] ([id number]) [address], [address] [place], [place] [address]Dwresmmn mean volume (Bld) [Entitic vol]8.4 fLNormal7-12 [facility] HospitalComment on above:Performed By: #### CBCA, PINR, 65954- 9, 54622-7, BMP, 16131-0, 7-1 #### [facility] ([id number]) [address], [address] [place], [place] [address]Vnemkedbp (Bld) [#/Vol]319 10*3/cFFekklp381-304TooLjlbdf [facility] HospitalComment on above:Performed By: #### CBCA, PINR, 34456-5, 28227-1, BMP, 44276-0, 7-1 #### [facility] ([id number]) [address], [address] [place], [place] [address]ZGR COUNT4.62 X10E12/LNormal4.10-5.70[facility] Comment on above:Performed By: #### CBCA, PINR, 96069-8, 94896-0, BMP, 54400-7, 2776-1 #### [facility] ([id number]) [address], [address] [place], [place] [address]ROL (Bld) [#/Vol]9.6 10*3/uLNormal4.0-11.0Pro[facility] HospitalComment on above:Performed By: #### CBCA, PINR, 11762-5, 82362-3, BMP, 42393-3, 7-1 #### [facility] ([id number]) [address], [address] [place], [place] [address]HZINHXQCQqa 47-46-3214Vpbfhfkxt [Mass/Vol]2.1 mg/dLNormal1.8-2.6 [facility] HospitalComment on above:Performed By: #### CBCA, PINR, 82913- 9, 49612-4, BMP, 46049-4, 7-1 #### [facility] ([id number]) [address], [address] [place], [place] [address]EUOXFNWUXXsw 26-76-1830Tvpulykfj [Mass/Vol]2.9 mg/dLNormal 2.4-4.9ProSt. Elizabeth HospitalComment on above:Result Comment: SPECIMEN HEMOLYZED, RESULTS INCREASED SLIGHTLY HEMOLYZEDPerformed By: #### CBCA, PINR, 76485-6, 23169-3, BMP, 52898-7, 7-1 #### [facility] ([id number]) [address], [address] [place], [place] [address]LTZHN METABOLIC PANLon 86-37-7872Xdkzb gap [Moles/Vol]10 mmol/L Normal5-15ProSt. Elizabeth HospitalComment on above:Performed By: #### CBCA, PINR, 72519-5, 35264-4, BMP, 99409-4, 2776- #### [facility] ([id number]) [address], [address] [place], [place] [address]Vlwdojd [Mass/Vol]8.5 mg/dLNormal8.5-10.5ProMedAvita Health System Ontario HospitalComment on above:Performed By: #### CBCA, PINR, 79821-0, 41155-5, BMP, 89975-0, 2776-1 #### [facility] ([id number]) [address], [address] [place], [place] [address]Mbplwnrw [Moles/Vol]100 mmol/IXiicxe71-017WteImtmrg [place] HospitalComment on above:Performed By: #### CBCA, PINR, 94686-4, 01985-5, BMP, 07373-0, 2776-1 #### [facility] ([id number]) [address], [address] [place], [place] [address]US9 [Moles/Vol]27 mmol/MIpnmmq69-76LulVaygns [facility] Comment on above:Performed By: #### CBCA, PINR, 02025-6, 02109-8, BMP, 52972-0, 2776-1 #### [facility] ([id number]) [address], [address] [place], [place] [address]Bqwszksvhh [Mass/Vol]0.84 mg/dLNormal0.60-1.30ProSt. Elizabeth HospitalComment on above:Result Comment: METHOD TRACEABLE TO IDMS STANDARD Performed By: #### CBCMaribel, PINR, 73337-4, 61414-4, BMP, 03050-5, 2776-1 #### [facility] ([id number]) [address], [address] [place], [place] [address]wHZL (CKD-EPI) NON-RACE DEPENDENT>90Normal>59ProSt. Elizabeth HospitalComment on above:Result Comment: Reported eGFR is based on the CKD-EPI 2020 equation that does not use a race coefficient.Performed By: #### GEOFFREY, PINR, 52151-1, 67944-6, BMP, 08657-3, 2776-1 #### [facility] ([id number]) [address] [place], [place] [address]Wpcnnxt [Mass/Vol]140 mg/rTZovy27-54TtqLanbmeSt. Elizabeth Hospital Comment on above:Performed By: #### GEOFFREY, PINR, 34431-3, 98474-8, BMP, 19540-2, 2776- #### [facility] ([id number]) [address], [facility] [address] [place], [place] [address]Gezdrhqfq [Moles/Vol]3.5 mmol/LNormal3.5-5.0ProSt. Elizabeth HospitalComment on above:Performed By: #### CBCA, PINR, 36932-2, 99556-4, BMP, 85371-0, 2776- #### [facility] ([id number]) [address], [address] [place], [place] [address]Dvywuu [Moles/Vol]137 mmol/TKhdbgo714-152VcjJnggwu [place] HospitalComment on above:Performed By: #### CBCA, PINR, 18769-0, 96041-5, BMP, 98589-9, 2776- #### [facility] ([id number]) [address], [address] [place], [place] [address]Lymx nitrogen [Mass/Vol]20 mg/dLNormal5-27ProVeterans Health Administration HospitalComment on above:Performed By: #### CBCA, PINR, 97991-0, 00737-7, BMP, 42791-5, 2776- #### [facility] ([id number]) [address], [address] [place], [place] [address]JLZ AND AUTO DIFFon 71-62-4113IMZULLAL BASOPHIL0.0 X10E9/LNormal 0.0-0.2ProMedChillicothe Hospital HospitalComment on above:Performed By: #### CBCA, PINR, 60896-2, 63977-9, BMP, 44864-5, 2776-04 #### [facility] ([id number]) [address], [address] [place] [address]XGZJTKCI NEUTROPHIL7.9 X10E9/LHigh1.5-6.6ProVeterans Health Administration HospitalComment on above:Performed By: #### CBCA, PINR, 69299-1, 88401-7, BMP, 73160-6, 2776- #### [facility] ([id number]) [address], [address] [place], [place] [address]Ncqlhugza/100 WBC (Bld)0.2 %NormalProVeterans Health Administration Hospital Comment on above:Performed By: #### CBCA, PINR, 37987-0, 29102-0, BMP, 39099-2, 2776- #### [facility] ([id number]) [address], [address] [place], [place] [address]Qvmuhyrpjct (Bld) [#/Vol]0.1 10*3/uLNormal0.0-0.4ProVeterans Health Administration HospitalComment on above:Performed By: #### CBCA, PINR, 16611-7, 24594-1, BMP, 16751-6, 2776-1 #### [facility] ([id number]) [address], [address] [place], [place] [address]Wuettntuymf/100 WBC (Bld)0.7 %NormalProVeterans Health Administration Hospital Comment on above:Performed By: #### CBCA, PINR, 15221-9, 79143-2, BMP, 45894-4, 2776- #### [facility] ([id number]) [address], [address] [place], [place] [address]Kccijaznxlh distribution width (RBC) [Ratio]14.3 %Normal 11.5-15.0ProVeterans Health Administration HospitalComment on above:Performed By: #### CBCA, PINR, 30831-5, 98708-5, BMP, 16726-5, 2776- #### [facility] ([id number]) [address], [address] [place], [place] [address]Ybedkmachm (Bld) [Volume fraction]44.3 %Pkgiek57-52KwbPpytjm [place] HospitalComment on above:Performed By: #### CBCA, PINR, 10432-3, 59351-1, BMP, 72840-8, 2776-1 #### [facility] ([id number]) [address], [address] [place], [place] [address]Paodomdnrv (Bld) [Mass/Vol]14.7 g/bOWfwaql05.0-17.0ProVeterans Health Administration HospitalComment on above:Performed By: #### CBCA, PINR, 24943-6, 42508-9, BMP, 65971-3, 2776-1 #### [facility] ([id number]) [address], [address] [place], [place] [address]Wverlctpojx (Bld) [#/Vol]1.3 10*3/uLNormal1.0-3.5Pro[facility] HospitalComment on above:Performed By: #### CBCA, PINR, 94052-6, 04318-6, BMP, 75132-2, 2776-1 #### [facility] ([id number]) [address], [address] [place], [place] [address]Pyaugmclxgo/100 WBC (Bld)12.8 %NormalProUniversity Hospitals Par[facility] Medical Centerca [facility] Comment on above:Performed By: #### CBCA, PINR, 01457-2, 78904-3, BMP, 72631-7, 2776- #### [facility] ([id number]) [address], [address] [place], [place] [address]FIV (RBC) [Entitic mass]31.5 ggCacskk24-65XokQsxsif [facility] HospitalComment on above:Performed By: #### CBCA, PINR, 01846-9, 34550-0, BMP, 12260-6, 2776-1 #### [facility] ([id number]) [address], [address] [place], [place] [address]GVTZ (RBC) [Mass/Vol]33.2 g/kYXcecxk76-93RwzRbhnqz [place] HospitalComment on above:Performed By: #### CBCA, PINR, 98321-8, 49781-9, BMP, 25551-6, 2776-1 #### [facility] ([id number]) [address], [address] [place], [place] [address]TXG (RBC) [Entitic vol]95 nDOhagvv70-344PtlCatmwr [facility] HospitalComment on above:Performed By: #### CBCA, PINR, 30228-9, 53685-6, BMP, 56015-1, 2776-1 #### [facility] ([id number]) [address], [address] [place], [place] [address]Fhzyuocfn (Bld) [#/Vol]1.2 10*3/uLHigh0-0.9ProSt. Elizabeth HospitalComment on above:Performed By: #### CBCA, PINR, 77684-0, 71796-2, BMP, 17155-0, 2776-1 #### [facility] ([id number]) [address], [address] [place], [place] [address]Uxsplyocf/100 WBC (Bld)10.9 %NormalSelect Medical [facility], [place] Comment on above:Performed By: #### CBCA, PINR, 31799-0, 63963-2, BMP, 19385-9, 2776- #### [facility] ([id number]) [address], [address] [place], [place] [address]Mrpfzfuyuym/100 WBC (Bld)75.4 %NormalSelect Medical [facility], [place] Comment on above:Performed By: #### CBCA, PINR, 01694-2, 40895-7, BMP, 24542-7, 2776- #### [facility] ([id number]) [address], [address] [place], [place] [address]Mncirfit mean volume (Bld) [Entitic vol]8.6 fLNormal7-12 [facility] SystemComment on above:Performed By: #### CBCA, PINR, 64206- 9, 39888-9, BMP, 32928-3, 2776- #### [facility] ([id number]) [address], [address] [place], [place] [address]Dlrkvvprr (Bld) [#/Vol]281 10*3/gGZfzmdu853-158LdhJtzufb [facility] HospitalComment on above:Performed By: #### CBCA, PINR, 87349-5, 20792-2, BMP, 47641-5, 2776- #### [facility] ([id number]) [address], [address] [place], [place] [address]WVU COUNT4.68 X10E12/LNormal4.10-5.70ProSt. Elizabeth Hospital Comment on above:Performed By: #### CBCA, PINR, 81938-7, 63109-5, BMP, 74302-4, 2776-1 #### [facility] ([id number]) [address], [address] [place], [place] [address]ZSA (Bld) [#/Vol]10.5 10*3/uLNormal4.0-11.0ProUniversity Hospitals Parma Medical Centerca Cory[facility] HospitalComment on above:Performed By: #### CBCA, PINR, 16099-4, 51418-7, BMP, 65281-0, 2776-1 #### [facility] ([id number]) [address], [address] [place], [place] [address]GHDEQJMGDup 74-48-1740Aqdehuhbv [Mass/Vol]2.4 mg/dLNormal1.8-2.6 [facility] HospitalComment on above:Performed By: #### CBCA, PINR, 16707- 9, 10706-5, BMP, 36623-6, 2776-1 #### [facility] ([id number]) [address], [address] [place], [place] [address]Fxoobbzaj [Mass/Vol]1.6 mg/dLLow1.8-2.6[facility] [place] Comment on above:Performed By: #### CBCA, PINR, 24311-3, 94385-5, BMP, 42070-1, 2776-1 #### [facility] ([id number]) [address], [address] [place], [place] [address]VUFUQQQIALio 82-36-0960Fvfjbtzkn [Mass/Vol]2.8 mg/dLNormal 2.4-4.9ProVeterans Health Administration HospitalComment on above:Performed By: #### CBCA, PINR, 59225-2, 23657-5, BMP, 09387-2, 2776-1 #### [facility] ([id number]) [address], [address] [place], [place] [address]AMSDFXFJOfx 36-16-2579Gzgqoojla [Moles/Vol]3.8 mmol/LNormal 3.5-5.0ProVeterans Health Administration HospitalComment on above:Performed By: #### CBCA, PINR, 66253-5, 15525-5, BMP, 57501-4, 2776-1 #### [facility] ([id number]) [address], [address] [place], [place] [address]GR ABDOMEN AP 1 VWon 68-84-4259WU ABDOMEN AP 1 VWXR ABDOMEN AP 1 VW CLINICAL HISTORY: Ileus or obstruction, abdominal pain Comparison: 07/19/2023 Views: 1 view FINDINGS: * Diffuse dilatation of large and small bowel. Multiple surgical clips. There is air within the rectum. Lung bases clear. IMPRESSION: * Probable postop ileus. Finalized by Doroteo Chavarria MD on 07/24/2023 6:[address]Pro[address] Elizabeth Hospital BASIC METABOLIC PANLon 37-91-8788Recpg gap [Moles/Vol]7 mmol/LNormal5-15 [facility] HospitalComment on above:Performed By: #### CBCA, PINR, 78403- 9, 51401-7, BMP, 14802-8, 2776-1 #### [facility] ([id number]) [address], [address] [place], [place] [address]Gtdkkkj [Mass/Vol]9.1 mg/dLNormal8.5-10.5Pro[facility]ica [facility] HospitalComment on above:Performed By: #### CBCA, PINR, 64481-3, 18557-9, BMP, 49178-6, 2776-1 #### [facility] ([id number]) [address], [address] [place], [place] [address]Whjzkgiq [Moles/Vol]103 mmol/VHovcgy16-374ZdiKhjkfl [place] HospitalComment on above:Performed By: #### CBCA, PINR, 21753-5, 89361-5, BMP, 40183-9, 2777-1 #### [facility] ([id number]) [address], [address] [place], [place] [address]VO2 [Moles/Vol]29 mmol/SFpinkx35-95VlzVscmvkMercy Health Comment on above:Performed By: #### CBCMaribel, PINR, 88185-7, 29235-0, BMP, 18191-1, 2776-04 #### [facility] ([id number]) [address], [address] [place], [place] [address]Kfuswcncwn [Mass/Vol]0.84 mg/dLNormal0.60-1.30ProSt. Elizabeth HospitalComment on above:Result Comment: METHOD TRACEABLE TO IDMS STANDARD Performed By: #### CBCMaribel, PINR, 50981-4, 84607-9, BMP, 44220-9, 2776-04 #### [facility] ([id number]) [address], [address] [place], [place] [address]gYQD (CKD-EPI) NON-RACE DEPENDENT>90Normal>59ProSt. Elizabeth HospitalComment on above:Result Comment: Reported eGFR is based on the CKD-EPI 2020 equation that does not use a race coefficient.Performed By: #### CBCMaribel, PINR, 02737-7, 08800-8, BMP, 20648-6, 2776-04 #### [facility] ([id number]) [address], [address] [place], [place] [address]Sprnxsu [Mass/Vol]161 mg/sDCbkp48-19RsiPuleuxSelect Medical [facility] [place] Comment on above:Performed By: #### CBCA, PINR, 02621-8, 70108-7, BMP, 17349-8, 2776-04 #### [facility] ([id number]) [address], [address] [place], [place] [address]Zetaejwil [Moles/Vol]3.4 mmol/LLow3.5-5.0ProSt. Elizabeth HospitalComment on above:Performed By: #### CBCA, PINR, 99956-8, 92472-6, BMP, 20108-6, 2776- #### [facility] ([id number]) [address], [address] [place], [place] [address]Ntkzqf [Moles/Vol]139 mmol/BYvihlp769-834QauQjzeux [facility] HospitalComment on above:Performed By: #### CBCA, PINR, 30285-2, 59497-1, BMP, 66504-0, 2776- #### [facility] ([id number]) [address], [address] [place], [place] [address]Zgjf nitrogen [Mass/Vol]16 mg/dLNormal5-27ProVeterans Health Administration HospitalComment on above:Performed By: #### CBCA, PINR, 51271-5, 01932-9, BMP, 35262-3, 2776- #### [facility] ([id number]) [address], [address] [place], [place] [address]EUQ AND AUTO DIFFon 04-64-6354IHFHUHJA BASOPHIL0.0 X10E9/LNormal 0.0-0.2ProMedica [facility] HospitalComment on above:Performed By: #### CBCA, PINR, 54838-8, 73503-8, BMP, 42185-6, 2776-1 #### [facility] ([id number]) [address], [address] [place], [place] [address]PCRJGIKB NEUTROPHIL8.2 X10E9/LHigh1.5-6.6ProVeterans Health Administration HospitalComment on above:Performed By: #### CBCA, PINR, 91765-6, 85526-7, BMP, 11807-2, 2776- #### [facility] ([id number]) [address], [address] [place], [place] [address]Dwiqspjir/100 WBC (Bld)0.2 %NormalProVeterans Health Administration Hospital Comment on above:Performed By: #### CBCA, PINR, 41352-7, 06854-7, BMP, 98290-8, 2776-1 #### [facility] ([id number]) [address], [address] [place], [place] [address]Afbdwwktqmf (Bld) [#/Vol]0.0 10*3/uLNormal0.0-0.4ProUniversity Hospitals Parma Medical Centerca [facility] HospitalComment on above:Performed By: #### CBCA, PINR, 02545-4, 61198-2, BMP, 95219-0, 2776-1 #### [facility] ([id number]) [address], [address] [place], [place] [address]Yhdxgjfjrtw/100 WBC (Bld)0.4 %NormalProVeterans Health Administration Hospital Comment on above:Performed By: #### CBCA, PINR, 88406-1, 17584-0, BMP, 61530-4, 2776-1 #### [facility] ([id number]) [address], [address] [place], [place] [address]Hbjqyvsmcbu distribution width (RBC) [Ratio]14.5 %Normal 11.5-15.0ProVeterans Health Administration HospitalComment on above:Performed By: #### CBCA, PINR, 62039-9, 58057-7, BMP, 08094-8, 2776-1 #### [facility] ([id number]) [address], [address] [place], [place] [address]Xsglfwrgdj (Bld) [Volume fraction]43.3 %Vxvshp19-92NawXyxruy [place] HospitalComment on above:Performed By: #### CBCA, PINR, 41353-6, 45690-3, BMP, 32488-3, 2776-1 #### [facility] ([id number]) [address], [address] [place], [place] [address]Iwkjturdsf (Bld) [Mass/Vol]14.5 g/wAOrwlfl77.0-17.0ProUniversity Hospitals Par[facility] Medical Centerca [facility] HospitalComment on above:Performed By: #### CBCA, PINR, 27383-3, 54519-9, BMP, 89483-4, 2776-1 #### [facility] ([id number]) [address], [address] [place], [place] [address]Dezfvgyhpob (Bld) [#/Vol]1.1 10*3/uLNormal1.0-3.5ProMedica [facility] HospitalComment on above:Performed By: #### CBCA, PINR, 00025-1, 03793-2, BMP, 94014-5, 2776-1 #### [facility] ([id number]) [address], [address] [place], [place] [address]Jqfmkiyvngs/100 WBC (Bld)10.4 %NormalProVeterans Health Administration Hospital Comment on above:Performed By: #### CBCA, PINR, 12432-2, 08482-8, BMP, 21599-3, 2776- #### [facility] ([id number]) [address], [address] [place], [place] [address]ZRO (RBC) [Entitic mass]31.2 peVthbmc60-61XnpWtcxec [place] HospitalComment on above:Performed By: #### CBCA, PINR, 14953-9, 69345-8, BMP, 99679-6, 2776-1 #### [facility] ([id number]) [address], [address] [place], [place] [address]AAYS (RBC) [Mass/Vol]33.4 g/bBMhqfrf07-41MtoQsqcbn [facility] HospitalComment on above:Performed By: #### CBCA, PINR, 73738-1, 11463-6, BMP, 88056-9, 2776-1 #### [facility] ([id number]) [address], [address] [place], [place] [address]RUF (RBC) [Entitic vol]94 mGAvlmua10-302WlzBpizdi Schwartz HospitalComment on above:Performed By: #### CBCA, PINR, 76041-2, 29945-4, BMP, 35284-6, 2777-1 #### [facility] ([id number]) [address], [address] [place], [place] [address]Ptearhptd (Bld) [#/Vol]1.2 10*3/uLHigh0-0.9ProUniversity Hospitals Par[facility] Medical Centerca [facility] SystemComment on above:Performed By: #### CBCA, PINR, 07155-6, 62159-8, BMP, 40293-3, 7-1 #### [facility] ([id number]) [address], [address] [place], [place] [address]Nemmttrnf/100 WBC (Bld)11.5 %NormalSelect Medical [facility] Clinic [facility] [place] Comment on above:Performed By: #### CBCA, PINR, 54260-9, 47064-2, BMP, 38001-1, 2776-1 #### [facility] ([id number]) [address], [address] [place], [place] [address]Fwiqeivngpq/100 WBC (Bld)77.5 %NormalSelect Medical [facility] Clinic [facility] [place] Comment on above:Performed By: #### CBCA, PINR, 03388-4, 96086-8, BMP, 78232-7, 277-1 #### [facility] ([id number]) [address], [address] [place], [place] [address]Ahqqzazx mean volume (Bld) [Entitic vol]8.0 fLNormal7-12 [facility] Health SystemComment on above:Performed By: #### CBCA, PINR, 29718- 9, 86190-9, BMP, 44783-3, 2776-1 #### [facility] ([id number]) [address], [address] [place], [place] [address]Oyktxbiss (Bld) [#/Vol]267 10*3/xSYjdpgk081-884IoqIusnac Schwartz HospitalComment on above:Performed By: #### CBCA, PINR, 73256-7, 11277-4, BMP, 13300-8, 2776-1 #### [facility] ([id number]) [address], [address] [place], [place] [address]KHD COUNT4.63 X10E12/LNormal4.10-5.70ProV[facility] Comment on above:Performed By: #### CBCA, PINR, 96315-3, 33960-4, BMP, 85952-0, 2776- #### [facility] ([id number]) [address], [address] [place], [place] [address]APK (Bld) [#/Vol]10.6 10*3/uLNormal4.0-11.0ProVeterans Health Administration HospitalComment on above:Performed By: #### CBCA, PINR, 24655-8, 96989-0, BMP, 67611-5, 2776-1 #### [facility] ([id number]) [address], [address] [place], [place] [address]GZDJVCMZUek 11-26-9876Nkjpjvsvk [Mass/Vol]1.9 mg/dLNormal1.8-2.[address] [facility] HospitalComment on above:Performed By: #### CBCA, PINR, 37620- 9, 17389-0, BMP, 57540-8, 2776-1 #### [facility] ([id number]) [address], [address] [place], [place] [address]EGZKXIJVZDfc 64-73-4513Dxnfealve [Mass/Vol]2.2 mg/dLLow2.4-4.[address] [facility] HospitalComment on above:Performed By: #### CBCA, PINR, 11164- 9, 64724-5, BMP, 59088-8, 2776-1 #### [facility] ([id number]) [address], [address] [place] [address]GAXHMEJCEdx 96-84-3248Cbvrfepwm [Moles/Vol]3.9 mmol/LNormal 3.5-5.0ProMedica Schwartz HospitalComment on above:Performed By: #### CBCA, PINR, 98739-9, 99882-6, BMP, 31567-6, 7-1 #### [facility] ([id number]) [address], [address] [place], [place] [address]ZOWXJ METABOLIC PANLon 05-49-7206Yehqb gap [Moles/Vol]8 mmol/L Normal5-15ProMedica Schwartz HospitalComment on above:Performed By: #### CBCA, PINR, 85332-7, 39368-3, BMP, 68974-6, 2776-1 #### [facility] ([id number]) [address], [address] [place] [address]Akhmzyg [Mass/Vol]9.1 mg/dLNormal8.5-10.5Pro[facility]ica [facility] HospitalComment on above:Performed By: #### CBCA, PINR, 25217-9, 75566-3, BMP, 00405-7, 2776-1 #### [facility] ([id number]) [address], [address] [place] [address]Jxaddrmw [Moles/Vol]102 mmol/DVuoatv09-774XteWscuyb [facility] HospitalComment on above:Performed By: #### CBCA, PINR, 09628-1, 88267-2, BMP, 54409-7, 2776-1 #### [facility] ([id number]) [address], [address] [place], [place] [address]CY6 [Moles/Vol]31 mmol/VQwbcgq13-33KghEvhhwv [facility] Comment on above:Performed By: #### CBCA, PINR, 22826-9, 81042-5, BMP, 54822-2, 2776-1 #### [facility] ([id number]) [address], [address] [place], [place] [address]Dxcpfxcrpl [Mass/Vol]0.87 mg/dLNormal0.60-1.30ProVeterans Health Administration HospitalComment on above:Result Comment: METHOD TRACEABLE TO IDMS STANDARD Performed By: #### CBCMaribel, PINR, 96122-2, 10554-4, BMP, 93779-0, 2776-1 #### [facility] ([id number]) [address], [address] [place], [place] [address]kKGC (CKD-EPI) NON-RACE DEPENDENT>90Normal>59ProVeterans Health Administration HospitalComment on above:Result Comment: Reported eGFR is based on the CKD-EPI 2020 equation that does not use a race coefficient.Performed By: #### GEOFFREY, PINR, 16958-8, 11064-4, BMP, 83448-9, 2776- #### [facility] ([id number]) [address], [address] [place], [place] [address]Ainjgju [Mass/Vol]107 mg/bYVucz61-46EkfZtiddcSt. Elizabeth Hospital Comment on above:Performed By: #### GEOFFREY, PINR, 28341-9, 04389-8, BMP, 60051-1, 2776- #### [facility] ([id number]) [address], [address] [place], [place] [address]Xvyvcoeow [Moles/Vol]3.7 mmol/LNormal3.5-5.0ProVeterans Health Administration HospitalComment on above:Performed By: #### CBCA, PINR, 17646-6, 51633-9, BMP, 44630-2, 2776- #### [facility] ([id number]) [address], [address] [place], [place] [address]Wetjwz [Moles/Vol]141 mmol/MMpkycu934-595SgxAacuhh [place] HospitalComment on above:Performed By: #### CBCA, PINR, 03758-5, 12930-0, BMP, 28144-6, 7-1 #### [facility] ([id number]) [address], [address] [place], [place] [address]Jqri nitrogen [Mass/Vol]14 mg/dLNormal5-27ProVeterans Health Administration HospitalComment on above:Performed By: #### CBCA, PINR, 41580-2, 72749-3, BMP, 27180-1, 2776-1 #### [facility] ([id number]) [address], [address] [place], [place] [address]EQU AND AUTO DIFFon 15-58-0612Qwpdcitkszu distribution width (RBC) [Ratio]14.5 %Gulase11.5-15.0ProSt. Elizabeth HospitalComment on above: Performed By: #### CBCA, PINR, 63886-0, 14914-3, BMP, 89168-2, 2776-1 #### [facility] ([id number]) [address], [address] [place], [place] [address]Txpkfurdva (Bld) [Volume fraction]42.9 %Mnicnt37-83PcfPmtcss [place] HospitalComment on above:Performed By: #### CBCA, PINR, 74798-1, 00191-8, BMP, 15300-6, 2776-1 #### [facility] ([id number]) [address], [address] [place], [place] [address]Eavohopihs (Bld) [Mass/Vol]14.4 g/eGQkczar85.0-17.0ProVeterans Health Administration HospitalComment on above:Performed By: #### CBCA, PINR, 70859-3, 29462-7, BMP, 48455-4, 2776-1 #### [facility] ([id number]) [address], [address] [place], [place] [address]Guwsjjnadti (Bld) [#/Vol]1.4 10*3/uLNormal1.0-3.5Pro[facility]ica [facility] HospitalComment on above:Performed By: #### CBCA, PINR, 84780-5, 89426-5, BMP, 53598-2, 2776- #### [facility] ([id number]) [address], [address] [place], [place] [address]Jodlyoackzs/100 WBC (Bld)10.0 %NormalProVeterans Health Administration Hospital Comment on above:Performed By: #### CBCA, PINR, 21008-4, 70674-4, BMP, 87909-0, 2776- #### [facility] ([id number]) [address], [address] [place], [place] [address]HJR (RBC) [Entitic mass]31.5 bzBmcoih94-04WqvYovmgb [place] HospitalComment on above:Performed By: #### CBCA, PINR, 29921-8, 63488-6, BMP, 31447-1, 2776- #### [facility] ([id number]) [address], [address] [place], [place] [address]PPJM (RBC) [Mass/Vol]33.6 g/nDTmssxp42-18KhjAkdcvt [place] HospitalComment on above:Performed By: #### CBCA, PINR, 21382-5, 47779-3, BMP, 94538-6, 2776- #### [facility] ([id number]) [address], [address] [place], [place] [address]XDP (RBC) [Entitic vol]94 cBFmxlwo31-150AsrBrssor [place] HospitalComment on above:Performed By: #### CBCA, PINR, 22706-1, 15664-5, BMP, 90795-4, 2776- #### [facility] ([id number]) [address], [address] [place], [place] [address]Ddvyygvhf (Bld) [#/Vol]0.9 10*3/uLNormal0-0.9ProVeterans Health Administration HospitalComment on above:Performed By: #### CBCA, PINR, 96003-3, 64436-6, BMP, 95397-3, 2776-1 #### [facility] ([id number]) [address], [address] [place], [place] [address]Swlqhwnpz/100 WBC (Bld)6.0 %NormalProVeterans Health Administration Hospital Comment on above:Performed By: #### CBCA, PINR, 38813-3, 20476-9, BMP, 57141-1, 2776- #### [facility] ([id number]) [address], [address] [place], [place] [address]Zdonhfvkluk (Bld) [#/Vol]11.9 10*3/uLHigh1.5-6.6ProUniversity Hospitals Par[facility] Medical Centerca [facility] HospitalComment on above:Performed By: #### CBCA, PINR, 78915-7, 61971-1, BMP, 83783-5, 2776- #### [facility] ([id number]) [address], [address] [place], [place] [address]Nyvikcxj mean volume (Bld) [Entitic vol]8.5 fLNormal7-12 ProMChildren's Hospital for RehabilitationComment on above:Performed By: #### CBCA, PINR, 32043- 9, 16463-1, BMP, 29417-2, 2776- #### [facility] ([id number]) [address], [address] [place], [place] [address]Eviuqlzdb (Bld) [#/Vol]240 10*3/mAAhgtee590-023OnlLbeaqo [place] HospitalComment on above:Performed By: #### CBCA, PINR, 11816-2, 51617-8, BMP, 96063-5, 2776-1 #### [facility] ([id number]) [address], [address] [place], [place] [address]ZHM COUNT4.57 X10E12/LNormal4.10-5.70ProUniversity Hospitals [facility] Medical Centerca [facility] Comment on above:Performed By: #### CBCA, PINR, 26759-0, 91641-7, BMP, 50621-0, 2777-1 #### [facility] ([id number]) [address], [address] [place], [place] [address]LOF morphology finding Nom (Bld)NORMALNormalProMedica Corydon HospitalComment on above:Performed By: #### CBCA, PINR, 06853-9, 93442-0, BMP, 06081-7, 7-1 #### [facility] ([id number]) [address] [place], [place] [address]IHS FIJIRIPLII97.0 %NormalProMedica Corydon HospitalComment on above:Performed By: #### CBCA, PINR, 59616-8, 36698-7, BMP, 54550-2, 2776- #### [facility] ([id number]) [address], [address] [place], [place] [address]EUJ (Bld) [#/Vol]14.2 10*3/uLHigh4.0-11.0Pro[facility] HospitalComment on above:Performed By: #### CBCA, PINR, 43969-0, 05681-9, BMP, 51010-8, 2776- #### [facility] ([id number]) [address], [address] [place], [place] [address]QDSIEWOGFfr 47-00-2753Sxdafpogk [Mass/Vol]2.0 mg/dLNormal1.8-2.6 [facility] HospitalComment on above:Performed By: #### CBCA, PINR, 29827- 9, 87131-5, BMP, 11456-1, 2776-1 #### [facility] ([id number]) [address], [address] [place], [place] [address]VMGSLZCKEBld 62-71-1147Oazzfwrnf [Mass/Vol]2.7 mg/dLNormal 2.4-4.9ProVeterans Health Administration HospitalComment on above:Performed By: #### CBCA, PINR, 61273-4, 82994-3, BMP, 80494-3, 2776- #### [facility] ([id number]) [address], [address] [place], [place] [address]Ptnnckota [Mass/Vol]1.7 mg/dLLow2.4-4.9Pro[facility] Comment on above:Performed By: #### CBCA, PINR, 74163-7, 50307-0, BMP, 22814-0, 2776- #### [facility] ([id number]) [address], [address] [place], [place] [address]WKUYXHNINxh 28-54-0983Hptoncity [Moles/Vol]4.0 mmol/LNormal 3.5-5.0ProVeterans Health Administration HospitalComment on above:Performed By: #### CBCA, PINR, 28428-9, 24084-7, BMP, 90919-1, 2776-1 #### [facility] ([id number]) [address], [address] [place], [place] [address]CBEAA METABOLIC PANLon 60-08-5638Occcl gap [Moles/Vol]7 mmol/L Normal5-15ProVeterans Health Administration HospitalComment on above:Performed By: #### CBCA, PINR, 09034-8, 03287-4, BMP, 25762-6, 2776- #### [facility] ([id number]) [address], [address] [place], [place] [address]Hrinlqd [Mass/Vol]8.9 mg/dLNormal8.5-10.5Pro[facility]ica [facility] HospitalComment on above:Performed By: #### CBCA, PINR, 64097-6, 65676-1, BMP, 01800-4, 2776-1 #### [facility] ([id number]) [address], [address] [place], [place] [address]Dypiftoi [Moles/Vol]102 mmol/UDzzcaz46-783TsiCywbxu [place] HospitalComment on above:Performed By: #### CBCA, PINR, 96397-7, 95513-8, BMP, 32830-0, 2776-1 #### [facility] ([id number]) [address], [address] [place], [place] [address]FE2 [Moles/Vol]31 mmol/POhyotk59-54UmuVqoflvMercy Health Comment on above:Performed By: #### CBCA, PINR, 70455-2, 23910-6, BMP, 58727-9, 2776-1 #### [facility] ([id number]) [address], [address] [place], [place] [address]Bciqwfxury [Mass/Vol]0.84 mg/dLNormal0.60-1.30ProSt. Elizabeth HospitalComment on above:Result Comment: METHOD TRACEABLE TO IDMS STANDARD Performed By: #### CBCA, PINR, 73166-0, 97239-3, BMP, 78167-6, 2776-1 #### [facility] ([id number]) [address], [address] [place], [place] [address]qMRX (CKD-EPI) NON-RACE DEPENDENT>90Normal>59ProSt. Elizabeth HospitalComment on above:Result Comment: Reported eGFR is based on the CKD-EPI 2021 equation that does not use a race coefficient.Performed By: #### CBCA, PINR, 74905-2, 06001-6, BMP, 49460-4, 2776-1 #### [facility] ([id number]) [address], [address] [place], [place] [address]Qxkguii [Mass/Vol]133 mg/gAWydr50-44KszCvywrgSelect Medical [facility] [place] Comment on above:Performed By: #### CBCA, PINR, 32117-3, 33213-1, BMP, 38488-2, 2776- #### [facility] ([id number]) [address], [address] [place], [place] [address]Ognprcpbk [Moles/Vol]4.0 mmol/LNormal3.5-5.0Pro[facility]ica Schwartz HospitalComment on above:Performed By: #### CBCMaribel, PINR, 22903-3, 76607-3, BMP, 30152-1, 2776- #### [facility] ([id number]) [address], [address] [place], [place] [address]Qozzfx [Moles/Vol]140 mmol/NKyjiyr174-278IwdKzpnxc Schwartz HospitalComment on above:Performed By: #### CBCMaribel, PINR, 54158-8, 52876-6, BMP, 13631-0, 2776- #### [facility] ([id number]) [address], [facility] [address] [place], [place] [address]Uwaj nitrogen [Mass/Vol]11 mg/dLNormal5-27ProMedica Schwartz HospitalComment on above:Performed By: #### CBCMaribel, PINR, 45676-3, 09038-6, BMP, 41960-9, 2776- #### [facility] ([id number]) [address], [address] [place], [place] [address]SHS AND AUTO DIFFon 92-03-2554Lxvlrafqhms distribution width (RBC) [Ratio]14.7 %Cbromp30.5-15.0ProMedica Schwartz HospitalComment on above: Performed By: #### CBCA, PINR, 94285-7, 97595-0, BMP, 31844-9, 2776- #### [facility] ([id number]) [address], [address] [place], [place] [address]Jgwidnxpxa (Bld) [Volume fraction]42.5 %Rcvnwl21-90InuCnwjoo Schwartz HospitalComment on above:Performed By: #### CBCA, PINR, 69004-3, 38968-0, BMP, 41759-6, 2777-1 #### [facility] ([id number]) [address], [address] [place], [place] [address]Omnseqbqxq (Bld) [Mass/Vol]14.2 g/xVQdyojs58.0-17.0[facility]don HospitalComment on above:Performed By: #### CBCA, PINR, 72190-4, 25326-7, BMP, 40981-5, 7-1 #### [facility] ([id number]) [address], [address] [place], [place] [address]Mjotezmglhm (Bld) [#/Vol]0.8 10*3/uLLow1.0-3.5ProMedica Schwartz HospitalComment on above:Performed By: #### CBCA, PINR, 10019-3, 26752-6, BMP, 62672-5, 2776-1 #### [facility] ([id number]) [address], [address] [place], [place] [address]Jltrwxdoajp/100 WBC (Bld)5.0 %NormalProVeterans Health Administration Hospital Comment on above:Performed By: #### CBCA, PINR, 12393-2, 23911-6, BMP, 68684-4, 7-1 #### [facility] ([id number]) [address], [address] [place], [place] [address]QAG (RBC) [Entitic mass]31.3 npRppoma65-58RkqLiakoz Corydon HospitalComment on above:Performed By: #### CBCA, PINR, 25210-1, 70609-4, BMP, 83426-2, 7-1 #### [facility] ([id number]) [address], [address] [place], [place] [address]LTOV (RBC) [Mass/Vol]33.3 g/eASxmjge46-75XdfMjvqmm Schwartz HospitalComment on above:Performed By: #### CBCA, PINR, 52154-8, 41598-6, BMP, 08850-9, 2776- #### [facility] ([id number]) [address], [address] [place], [place] [address]CMZ (RBC) [Entitic vol]94 jXUxfemf83-375ZvaSmtptq Corydon HospitalComment on above:Performed By: #### CBCA, PINR, 30886-6, 06265-6, BMP, 56684-6, 2776- #### [facility] ([id number]) [address], [address] [place], [place] [address]Dsrfllomp (Bld) [#/Vol]2.0 10*3/uLHigh0-0.9Pro[facility]ica Corydon HospitalComment on above:Performed By: #### CBCA, PINR, 55480-6, 73175-9, BMP, 79161-7, 2776- #### [facility] ([id number]) [address], [address] [place], [place] [address]Mlubmnhlt/100 WBC (Bld)12.0 %NormalProVeterans Health Administration Hospital Comment on above:Performed By: #### CBCA, PINR, 89275-5, 36250-1, BMP, 60145-8, 2776-1 #### [facility] ([id number]) [address], [address] [place], [place] [address]Ynwjyskgpwr (Bld) [#/Vol]13.8 10*3/uLHigh1.5-6.6ProUniversity Hospitals Par[facility] Medical Centerca Corydon HospitalComment on above:Performed By: #### CBCA, PINR, 69550-9, 88901-9, BMP, 45268-5, 2776- #### [facility] ([id number]) [address], [address] [place], [place] [address]Xgxcaysv mean volume (Bld) [Entitic vol]8.6 fLNormal7-12 [facility] HospitalComment on above:Performed By: #### CBCA, PINR, 57591- 9, 09358-4, BMP, 89573-9, 2777-1 #### [facility] ([id number]) [address], [address] [place], [place] [address]Wmoxpeywg (Bld) [#/Vol]212 10*3/zSYdcydo834-946QbwZqqtxr Schwartz HospitalComment on above:Performed By: #### CBCA, PINR, 17221-3, 23869-5, BMP, 88551-8, 2777-1 #### [facility] ([id number]) [address], [address] [place], [place] [address]AKA COUNT4.53 X10E12/LNormal4.10-5.70[facility] Comment on above:Performed By: #### CBCA, PINR, 28957-9, 09671-8, BMP, 47507-0, 2777-1 #### [facility] ([id number]) [address], [address] [place], [place] [address]NRH morphology finding Nom (Bld)NORMALNormalProMedica Schwartz HospitalComment on above:Performed By: #### CBCA, PINR, 58635-8, 93156-6, BMP, 26118-1, 2777-1 #### [facility] ([id number]) [address], [address] [place], [place] [address]VQY QJRJVEWXUL02.0 %NormalProMedica Schwartz HospitalComment on above:Performed By: #### CBCA, PINR, 70676-6, 87586-1, BMP, 97920-5, 2777-1 #### [facility] ([id number]) [address], [address] [place], [place] [address]XSH (Bld) [#/Vol]16.6 10*3/uLHigh4.0-11.0ProMedica Schwartz HospitalComment on above:Performed By: #### CBCA, PINR, 62249-3, 44497-3, BMP, 25630-2, 2776-1 #### [facility] ([id number]) [address], [address] [place], [place] [address]HAMBPEDAHcb 50-19-5381Mzbzacgih [Mass/Vol]1.9 mg/dLNormal1.8-2.6 ProMst. vincent's easta Corydon HospitalComment on above:Performed By: #### CBCA, PINR, 73528- 9, 04814-2, BMP, 62978-3, 2776-1 #### [facility] ([id number]) [address] [facility] [facility] [facility] [place], [place] [address]ICNROVABGHar 85-28-4223Spkjsxxxv [Mass/Vol]1.8 mg/dLLow2.4-4.9 [facility] Cory[facility] HospitalComment on above:Performed By: #### CBCA, PINR, 44513- 9, 88794-9, BMP, 05526-3, 2776-1 #### [facility] ([id number]) [address] [facility] [facility] [facility], [address] [place], [place] [address]INIOE METABOLIC PANLon 91-97-7442Hsdyb gap [Moles/Vol]9 mmol/L Normal5-15ProMedica Corydon HospitalComment on above:Performed By: #### CBCA, PINR, 23897-3, 48849-5, BMP, 60645-9, 2776-1 #### [facility] ([id number]) [address], [address] [place], [place] [address]Xkcxjjf [Mass/Vol]8.8 mg/dLNormal8.5-10.5ProMedica Corydon HospitalComment on above:Performed By: #### CBCA, PINR, 50786-4, 23113-2, BMP, 68230-6, 2776-1 #### [facility] ([id number]) [address], [address] [place], [place] [address]Kcuikpol [Moles/Vol]104 mmol/FOvcgeb66-183JxvKrrhoe Toledo HospitalComment on above:Performed By: #### CBCA, PINR, 68552-7, 04952-6, BMP, 78587-7, 2777-1 #### [facility] ([id number]) [address], [address] [place], [place] [address]TO0 [Moles/Vol]26 mmol/FCnxiwj32-29GkmYcrebrMercy Health Comment on above:Performed By: #### CBCA, PINR, 23365-6, 01285-9, BMP, 88135-3, 2776-1 #### [facility] ([id number]) [address], [address] [place], [place] [address]Gizymvczcu [Mass/Vol]0.86 mg/dLNormal0.60-1.30ProSt. Elizabeth HospitalComment on above:Result Comment: METHOD TRACEABLE TO IDMS STANDARD Performed By: #### CBCA, PINR, 02812-1, 51901-6, BMP, 77255-8, 2776-1 #### [facility] ([id number]) [address], [address] [place], [place] [address]uLHI (CKD-EPI) NON-RACE DEPENDENT>90Normal>59ProSt. Elizabeth HospitalComment on above:Result Comment: Reported eGFR is based on the CKD-EPI 2020 equation that does not use a race coefficient.Performed By: #### CBCA, PINR, 16066-6, 16305-6, BMP, 59076-3, 7-1 #### [facility] ([id number]) [address], [address] [place], [place] [address]Txhtzmw [Mass/Vol]139 mg/zTXzjb75-25JuyAkhrlwSelect Medical [facility] [place] Comment on above:Performed By: #### CBCA, PINR, 47622-4, 29634-7, BMP, 61770-5, 2777-1 #### [facility] ([id number]) [address], [address] [place], [place] [address]Suuqcbnft [Moles/Vol]3.7 mmol/LNormal3.5-5.0ProUniversity Hospitals Parma Medical Centerca Corydon HospitalComment on above:Performed By: #### CBCA, PINR, 96393-6, 82018-4, BMP, 50875-7, 2776-1 #### [facility] ([id number]) [address], [address] [place], [place] [address]Tzmdoh [Moles/Vol]139 mmol/EIgryrg699-414QfqJzijbf Corydon HospitalComment on above:Performed By: #### CBCA, PINR, 28075-6, 03976-3, BMP, 26159-5, 2776- #### [facility] ([id number]) [address], [address] [place], [place] [address]Xhix nitrogen [Mass/Vol]13 mg/dLNormal5-27ProUniversity Hospitals Par[facility] Medical Centerca Corydon HospitalComment on above:Performed By: #### CBCA, PINR, 69745-2, 63761-9, BMP, 98243-8, 2776-04 #### [facility] ([id number]) [address], [address] [place], [place] [address]BGJ AND AUTO DIFFon 63-20-6395Uzgf form neutrophils/100 WBC (Bld)3.8 %NormalProVeterans Health Administration HospitalComment on above:Performed By: #### CBCA, PINR, 47284-5, 12389-9, BMP, 00370-8, 2776- #### [facility] ([id number]) [address], [address] [place], [place] [address]Aonmmpuotjs distribution width (RBC) [Ratio]14.2 %Normal 11.5-15.0ProVeterans Health Administration HospitalComment on above:Performed By: #### CBCA, PINR, 86337-7, 64785-9, BMP, 08324-6, 2776- #### [facility] ([id number]) [address], [address] [place], [place] [address]Koihdixihm (Bld) [Volume fraction]47.6 %Bjlxja55-98DzdDdyahd Schwartz HospitalComment on above:Performed By: #### CBCA, PINR, 01541-6, 31027-7, BMP, 61509-6, 2776-1 #### [facility] ([id number]) [address], [address] [place], [place] [address]Qkyofvhgyi (Bld) [Mass/Vol]15.8 g/bWLwkcuh86.0-17.0ProMedica Schwartz HospitalComment on above:Performed By: #### CBCA, PINR, 55037-5, 74049-4, BMP, 92633-1, 2776-1 #### [facility] ([id number]) [address], [address] [place], [place] [address]UWMEBQPPEH, ATYPICAL1.0 %NormalProMedica Schwartz HospitalComment on above:Performed By: #### CBCA, PINR, 82964-2, 47000-7, BMP, 88008-1, 2776-1 #### [facility] ([id number]) [address], [address] [place], [place] [address]Ibqaphysmdu (Bld) [#/Vol]1.3 10*3/uLNormal1.0-3.5ProMedica Schwartz HospitalComment on above:Performed By: #### CBCA, PINR, 98170-6, 48047-7, BMP, 48543-8, 2776-1 #### [facility] ([id number]) [address], [address] [place], [place] [address]Pydvfufhhql/100 WBC (Bld)5.7 %NormalProMedica Schwartz Hospital Comment on above:Performed By: #### CBCA, PINR, 17443-4, 73742-9, BMP, 10561-5, 2776- #### [facility] ([id number]) [address], [address] [place], [place] [address]YLC (RBC) [Entitic mass]31.0 bhMangpq53-57PfpTbqyah Corydon HospitalComment on above:Performed By: #### CBCA, PINR, 48042-4, 75785-8, BMP, 78327-7, 2776- #### [facility] ([id number]) [address], [address] [place], [place] [address]HTFF (RBC) [Mass/Vol]33.1 g/yBJolvmz02-86UfcEtrxcv Corydon HospitalComment on above:Performed By: #### CBCA, PINR, 02093-9, 76899-7, BMP, 54174-3, 2776- #### [facility] ([id number]) [address], [address] [place], [place] [address]QEO (RBC) [Entitic vol]94 fJTntrin50-772IvtToptbk Corydon HospitalComment on above:Performed By: #### CBCA, PINR, 50544-8, 82174-2, BMP, 83753-8, 2776- #### [facility] ([id number]) [address], [address] [place], [place] [address]Mcteiegjo (Bld) [#/Vol]2.5 10*3/uLHigh0-0.9ProUniversity Hospitals Par[facility] Medical Centerca Corydon HospitalComment on above:Performed By: #### CBCA, PINR, 23620-2, 08821-4, BMP, 80622-5, 2776- #### [facility] ([id number]) [address], [address] [place], [place] [address]Vwzyzclqu/100 WBC (Bld)13.3 %NormalProVeterans Health Administration Hospital Comment on above:Performed By: #### CBCA, PINR, 39397-3, 20577-8, BMP, 29429-8, 2776- #### [facility] ([id number]) [address], [address] [place], [place] [address]Uekskndkczq (Bld) [#/Vol]14.9 10*3/uLHigh1.5-6.6ProMedica Corydon HospitalComment on above:Performed By: #### CBCA, PINR, 32008-5, 14839-3, BMP, 88150-8, 2776- #### [facility] ([id number]) [address], [address] [place], [place] [address]Qaqfyavz mean volume (Bld) [Entitic vol]8.7 fLNormal7-12 [facility] HospitalComment on above:Performed By: #### CBCA, PINR, 38275- 9, 27988-0, BMP, 41108-0, 2776- #### [facility] ([id number]) [address], [address] [place], [place] [address]Xogiouczt (Bld) [#/Vol]234 10*3/cOWjkdcr492-504NevUmfdxa Corydon HospitalComment on above:Performed By: #### CBCA, PINR, 88202-9, 46347-2, BMP, 72785-8, 2776- #### [facility] ([id number]) [address], [address] [place], [place] [address]SEB COUNT5.08 X10E12/LNormal4.10-5.70ProUniversity Hospitals Par[facility] Medical Centerca [facility] Comment on above:Performed By: #### CBCA, PINR, 58669-0, 52799-2, BMP, 57323-1, 2776- #### [facility] ([id number]) [address], [address] [place], [place] [address]WYO morphology finding Nom (Bld)NORMALNormalProMedica Corydon HospitalComment on above:Performed By: #### CBCA, PINR, 32498-2, 32156-3, BMP, 61272-0, 2777- #### [facility] ([id number]) [address], [address] [place], [place] [address]KFX DIEMMGOBJQ96.2 %NormalProMedica Corydon HospitalComment on above:Performed By: #### CBCA, PINR, 44311-2, 38880-0, BMP, 75028-8, 2776-1 #### [facility] ([id number]) [address], [address] [place], [place] [address]EVF (Bld) [#/Vol]18.7 10*3/uLHigh4.0-11.0Pro[facility]ica Cory[facility] HospitalComment on above:Performed By: #### CBCA, PINR, 31963-4, 88650-8, BMP, 50842-7, 1 #### [facility] ([id number]) [address], [address] [place], [place] [address]EYGMJGHQJgn 63-12-7069Sxwtxxefb [Mass/Vol]2.0 mg/dLNormal1.8-2.6 [facility] HospitalComment on above:Performed By: #### 22354-4 #### [facility] ([id number]) [address], [address] [place], [place] [address]Ulfzgsoxl [Mass/Vol]1.7 mg/dLLow1.8-2.6ProUniversity Hospitals Par[facility] Medical Centerca [facility] Comment on above:Performed By: #### CBCA, PINR, 78184-5, 96306-5, BMP, 60092-8, 2776-1 #### [facility] ([id number]) [address], [address] [place], [place] [address]Etccpzrcjhs peptide B [Mass/Vol]on 49-62-9612Qkdbjntbbzl peptide B (Bld) [Mass/Vol]28 pg/mLNormal<100.0Pro[facility]ica [facility] HospitalComment on above:Performed By: #### 62075-1 #### [facility] ([id number]) [address], [address] [place] [address]QLUCDZUWJTgy 62-68-6174Ymthovako [Mass/Vol]2.7 mg/dLNormal 2.4-4.9Pro[facility] HospitalComment on above:Performed By: #### CBCA, PINR, 56728-3, 03144-0, BMP, 94305-3, 2776-1 #### [facility] ([id number]) [address], [address] [place] [address]NWJSSVA AND INRon 26-25-7150SFL Coag (PPP) [Relative time]1.1 {INR}Normal0.8-1.1ProMedChillicothe Hospital HospitalComment on above:Performed By: #### PINR #### [facility] ([id number]) [address], [address] [place] [address]NA Coag (PPP) [Time]12.5 sNormal9.8-13.2ProMedChillicothe Hospital HospitalComment on above:Performed By: #### PINR #### [facility] ([id number]) [address], [address] [place] [address]JBA Coag (PPP) [Relative time]1.0 {INR}Normal0.8-1.1[facility] HospitalComment on above:Performed By: #### CBCA, PINR, 54362-5, 97459-7, BMP, 52434-9, 2776-1 #### [facility] ([id number]) [address], [address] [place], [place] [address]XZ Coag (PPP) [Time]12.0 sNormal9.8-13.2PMercy Health Tiffin Hospital HospitalComment on above:Performed By: #### CBCA, PINR, 50246-7, 46149-8, BMP, 84992-3, 2776-1 #### [facility] ([id number]) [address] [facility], [address] [place], [place] [address]Xotgfdho Pathologyon 19-92-1798Jgsohmok PathologyNormalProMedica Blanchard Valley Health SystemComment on above:Result Comment: [facility] [address] [place] [address] Surgical Pathology Consultation Patient Name:CIPRIANO ARZATE:1960 (Age: 63)Gender:MTaken:07/20/2023eported:07/23/2023hysician(s):Evan Louis MD ([phone])Copy To: Rec. #:[id number]: #[id number] Final Pathologic Diagnosis Colon, sigmoid, partial resection: - Gross and microscopic evidence of perforated diverticulum with associated abscess formation - Diverticulitis and diverticulosis - Five benign lymph nodes (0/5) - Margins viable Report Electronically Signed Out nrd/07/23/2023Niclydia Becker MD Interpretation performed at [facility], [address] [place] [address], License number: [id number]. Clinical History Perforated diverticulitis. Gross Description Received [...] are identified measuring up to 0.7 cm. Ditch Rider sections are submitted as follows: A Margin 1. en face B Margin 2, en face C Abscess cavity D-E Diverticulum continuous to abscess cavity, bisected (black ink represents continuity) F Additional diverticulum, intact G Retroperitoneal exudate and adhesion H Five lymph nodes, intact (8, ss, W47-33226, m1) EFC, DD efc/07/21/2023SSI Microscopic Findings Microscopic examination performed. Specimen(s) Received Sigmoid colon resection Fee Codes(s): 1; 90544RKPGAMGT Ion 24-86-4817Gwckmfzz I.cardiac [Mass/Vol]0.03 ng/mLNormal 0.00-0.04ProSt. Elizabeth HospitalComment on above:Performed By: #### CBCA, PINR, 44915-6, 99319-5, BMP, 95712-1, 2777-1 #### [facility] ([id number]) [address], [address] [place], [place] [address]qSPY Coag (PPP) [Time]on 34-80-1109dXNB Coag (Bld) [Time]31 s Egrdre05-52FoeOzucrlSt. Elizabeth HospitalComment on above:Performed By: #### CBCA, PINR, 40068-7, 61302-8, BMP, 15227-7, 2777-1 #### [facility] ([id number]) [address], [address] [place], [place] [address]IDO AUTO DIFFon 94-40-5249RJWO #0.1 103/ulNormal0.0-0.1The [facility] Medical CenterComment on above:Performed By: #### CBC #### [facility] [address] [address] [address] Leta Englandphils/100 WBC (Bld)0.5 %Normal0.2-2.0The [facility] Comment on above:Performed By: #### CBC #### [facility] [address] [place], [place] [address] Dr. Leta Rutherford #0.0 103/ulNormal0.0-0.7The [facility] Medical CenterComment on above: Performed By: #### CBC #### [facility] [address] [place] [address] Dr. Leta Martinoosinophils/100 WBC (Bld)0.1 %Critically low0.9-7.0The [facility] Medical CenterComment on above:Performed By: #### CBC #### [facility] [address] [place] [address] Dr. Leta Martinorythrocyte distribution width (RBC) [Ratio]13.9 %Mpobjm03.0-15.0 The [facility] Medical CenterComment on above:Performed By: #### CBC #### [facility] [address] [place] [address] Dr. Leta AntonioHematocrit (Bld) [Volume fraction]49.5 %Jbxnja22.0-54.0The [facility] Medical CenterComment on above:Performed By: #### CBC #### [facility] [address] [place] [address] Dr. Leta AntonioHemoglobin (Bld) [Mass/Vol]16.5 g/yDOztxpx43.0-18.0The [facility] CenterComment on above:Performed By: #### CBC #### [facility] [address] [place] [address] Dr. Leta Deras #0.03 10e3/ulNormal0.00-0.03The [facility] Medical CenterComment on above:Performed By: #### CBC #### [facility] [address] [place] [address] Dr. Leta Deras %0.3 %Normal0.0-0.5The [facility] CenterComment on above: Performed By: #### CBC #### [facility] [address] [place] [address] Dr. Leta Yeung #1.1 103/ulCritically low1.2-3.8The [facility] on above:Performed By: #### CBC #### [facility] [address] [place] [address] Dr. Yilan ChangLymphocytes/100 WBC (Bld)11.3 %Critically low20.5-60.0The [facility] CenterComment on above:Performed By: #### CBC #### [facility] [address] [place] [address] Dr. Leta García DIFF REQNONormalThe [facility] Medical CenterComment on above: Performed By: #### CBC #### [facility] [address] [place] [address] Dr. Leta Atkinson (RBC) [Entitic mass]30.6 emAnkmlt22.9-34.0The [facility] CenterComment on above:Performed By: #### CBC #### [facility] [address] [place] [address] Dr. Leta Atkinson (RBC) [Mass/Vol]33.3 g/wJRvgnfu67.9-35.2The [facility] CenterComment on above:Performed By: #### CBC #### [facility] [address] [place] [address] Dr. Leta Adan (RBC) [Entitic vol]91.7 lRJqwoaa26.0-94.0[facility] Rita'S Medical CenterComment on above:Performed By: #### CBC #### [facility] [address] [place] [address] Dr. Leta Prasad #1.3 103/ulCritically high0.3-0.8ThMercy Hospital Comment on above:Performed By: #### CBC #### [facility] [address] [place] [address] Dr. Leta Martinezocytes/100 WBC (Bld)13.2 %Critically high1.7-12.0[facility] Rita'S Medical CenterComment on above:Performed By: #### CBC #### [facility] [address] [place] [address] Dr. Leta Maxwell #7.4 103/ulCritically high1.4-6.5The [facility] Comment on above:Performed By: #### CBC #### [facility] [address] [place] [address] Dr. Yilan ChangNeutrophils/100 WBC (Bld)74.6 %Xqihsk35.0-75.0The [facility] CenterComment on above:Performed By: #### CBC #### [facility] [address] [place] [address] Dr. Leta AntonioPlatelet mean volume (Bld) [Entitic vol]10.0 fLNormal9.5-13.5The [facility] CenterComment on above:Performed By: #### CBC #### [facility] [address] [place] [address] Dr. Leta AntonioPLT245 103/bxLlxvgs293-310Snr [facility] CenterComment on above: Performed By: #### CBC #### [facility] [address] [place] [address] Dr. Leta AntonioRBC5.40 106/ulNormal4.70-6.10The [facility] CenterComment on above:Performed By: #### CBC #### [facility] [address] [place] [address] Dr. Leta AntonioWBC10.0 103/ulNormal4.0-11.0The [facility] CenterComment on above:Performed By: #### CBC #### [facility] [address] [place] [address] Dr. Leta AntonioCT ABD/PELV W CONon 21-12-9884TW ABD/PELV W CONEXAM: CT ABD/PELV W CON HISTORY: GENERALIZED ABDOMINAL [...] Electronically authenticated by: Hardik LUNDBERG Date: 2022-09-20 16:58[facility] HospitalLACTATE/LACTIC ACIDon 13-68-8749Klpjvwo [Moles/Vol]1.1 mmol/LNormal 0.4-2.0The [facility] CenterComment on above:Performed By: #### LACT #### [facility] [address] [place] [address] Dr. Leta AntonioLIPASEon 35-87-9376Dchlvv [Catalytic activity/Vol]161.0 U/LNormal 73.0-393.0The [facility] Hospitalment on above:Performed By: #### CMP, LIPA, HSTROPN #### [facility] [address] [place] [address] Dr. Leta AntonioPROF 14(COMP METB)on 53-33-4478Psuaoeu [Mass/Vol]3.8 g/dLNormal 3.4-5.0The [facility] Hospitalment on above:Performed By: #### CMP, LIPA, HSTROPN #### [facility] [address] [place] [address] Dr. Leta AntonioAlbumin/Globulin [Mass ratio]0.9 {ratio}NormalThe [facility] Clinic Med[facility] Hospitalment on above:Performed By: #### CMP, LIPA, HSTROPN #### [facility] [address] [place] [address] Dr. Leta AntonioALP [Catalytic activity/Vol]81 U/YOpdaah51-506Slv [facility] CenterComment on above:Performed By: #### CMP, LIPA, HSTROPN #### [facility] [address] [place] [address] Dr. Leta WellerT [Catalytic activity/Vol]30 U/XMvjizo63-38Brq [facility] CenterComment on above:Performed By: #### CMP, LIPA, HSTROPN #### [facility] [address] [place] [address] Dr. Leta Ramires gap [Moles/Vol]14.2 mmol/LNormalMercy Health St. Rita'S [facility] Center Comment on above:Performed By: #### CMP, LIPA, HSTROPN #### [facility] [address] [place] [address] Dr. Leta AntonioAST [Catalytic activity/Vol]20 U/NEeozwo97-56FsoMercy Health St. Rita'S Medical CenterComment on above:Performed By: #### CMP, LIPA, HSTROPN #### [facility] [address] [place] [address] Dr. Leta AntonioBilirubin [Mass/Vol]0.5 mg/dLNormal0.2-1.0[facility] Comment on above:Performed By: #### CMP, LIPA, HSTROPN #### [facility] [address] [place] [address] Dr. Leta AntonioCalcium [Mass/Vol]10.1 mg/dLNormal8.5-10.1[facility] Comment on above:Performed By: #### CMP, LIPA, HSTROPN #### [facility] [address] [place] [address] Dr. Leta AntonioChloride [Moles/Vol]102 mmol/BWsmhip09-957KmsMercy Health St. Rita'S Medical Center Comment on above:Performed By: #### CMP, LIPA, HSTROPN #### [facility] [address] [place] [address] Dr. Leta AntonioCO2 [Moles/Vol]28.5 mmol/JFafqee59.0-32.0[facility] Comment on above:Performed By: #### CMP, LIPA, HSTROPN #### [facility] [address] [place] [address] Dr. Leta AntonioCreatinine [Mass/Vol]1.20 mg/dLNormal0.70-1.30The [facility] CenterComment on above:Performed By: #### CMP, LIPA, HSTROPN #### [facility] [address] [place] [address] Dr. Leta Braga-AF HAITIAN>60Normal>=60The [facility] CenterComment on above:Performed By: #### CMP, LIPA, HSTROPN #### [facility] [address] [place] [address] Dr. Leta Braga-NON AF HAITIAN>60Normal>=60The [facility] CenterComment on above:Performed By: #### CMP, LIPA, HSTROPN #### [facility] [address] [place] [address] Dr. Leta AntonioGlobulin (S) [Mass/Vol]4.1 g/dLNormalThe [facility] CenterComment on above:Performed By: #### CMP, LIPA, HSTROPN #### [facility] [address] [place] [address] Dr. Leta AntonioGlucose [Mass/Vol]119 mg/dLCritically mqgd44-831Xqa [facility] CenterComment on above:Performed By: #### CMP, LIPA, HSTROPN #### [facility] [address] [place] [address] Dr. Leta AntonioPotassium [Moles/Vol]3.7 mmol/LNormal3.5-5.1[facility] Comment on above:Performed By: #### CMP, LIPA, HSTROPN #### [facility] [address] [place] [address] Dr. Leta AntonioProtein [Mass/Vol]7.9 g/dLNormal6.4-8.2The [facility] Comment on above:Performed By: #### CMP, LIPA, HSTROPN #### [facility] [address] [address] [address] Leta AntonioSodium [Moles/Vol]141 mmol/JTxckhp015-485Cnz [facility] Comment on above:Performed By: #### CMP, LIPA, HSTROPN #### [facility] [address] [address] [address] Leta AntonioUrea nitrogen [Mass/Vol]21.0 mg/dLCritically high7.0-18.0The [facility] CenterComment on above:Performed By: #### CMP, LIPA, HSTROPN #### [facility] [address] [address] [address] Leta Garcia nitrogen/Creatinine [Mass ratio]17.5 mg/mgNormalThe [facility] CenterComment on above:Performed By: #### CMP, LIPA, HSTROPN #### [facility] [address] [address] [address] Leta Jones, HIGH SENSITIVITYon 79-28-5706YSXJWY9.2 pg/mLNormal 4.0-76.1The [facility] Medical CenterComment on above:Result Comment: CUT-OFF POINTS HAVE BEEN ESTABLISHED BASED ON THE FOURTH UNIVERSAL DEFINITIONS OF MYOCARDIAL INFARCTION. THE UPPER REFERENCE LIMIT (URL) OF TROPONIN, DEFINED THE 99TH PERCENTILE OF cTnI DISTRIBUTION IN A REFERENCE POPULATION, HAS BEEN CONFIRMED THE DECISION THRESHOLD FOR MA DIAGNOSIS.Performed By: #### CMP, LIPA, HSTROPN #### [facility] [address] [address] [address] Leta Antonio Vital Signs Date TimeVital SignValuePerforming [id number] 15:48-0400Body ehyfmw879.26 Rula Arevalo CREDIT CARD CLERK-C Work Phone: [facility]09-29-2025 15:48-0400 Body mass index (BMI) [Ratio]25.1 kg/m2Yissel Arevalo CREDIT CARD CLERK-C Work Phone: [facility]09-29-2025 15:48-0400 Body jqyymztauva96.8 [degF]Yisselmaribel Solomonholz CREDIT CARD CLERK-C Work Phone: [facility]09-29-2025 15:48-0400 Body ilscrw71.16 kgLisa Solomonholz CREDIT CARD CLERK-C Work Phone: [facility]09-29-2025 15:48-0400 Diastolic blood vknipobq39 mm[Hg]Yissle Solomonholz CREDIT CARD CLERK-C Work Phone: [facility]09-29-2025 15:48-0400 Heart rate99 /minLisa Aichholz CREDIT CARD CLERK-C Work Phone: [phone] [place], [place] 2345909-29-2025 15:48-0400 Respiratory rate22 /minLisa Aichholz CREDIT CARD CLERK-C Work Phone: [facility]09-29-2025 15:48-0400 SaO2% (BldA) [Mass fraction]96 %Yissel Juanitoholz CREDIT CARD CLERK-C Work Phone: [facility]09-29-2025 15:48-0400 Systolic blood nbczzdha316 mm[Hg]Yisselmaribel Solomonholz CREDIT CARD CLERK-C Work Phone: [facility]09-15-2025 14:02-0400 Body gpgvptvjlte44.59 [degF]GIULIA Sandoval MD Work Phone: [facility]09-15-2025 14:02-0400Body .6 kgGIULIA Sandoval MD Work Phone: [facility]09-15-2025 14:02-0400Diastolic blood phkuovwj40 mm[Hg]GIULIA Sandoval MD Work Phone: [facility]09-15-2025 14:02-0400Heart oajk686 /SofíaGIULIA Sandoval MD Work Phone: [facility]09-15-2025 14:02-0400Respiratory rate 18 /SofíaGIULIA Sandoval MD Work Phone: [facility]09-15-2025 14:02-5133VoZ0% (BldA) [Mass fraction]96 %GIULIA Sandoval MD Work Phone: [facility]09-15-2025 14:02-0400Systolic blood wrkjwyrp634 mm[Hg]GIULIA Sandoval MD Work Phone: [facility]09-08-2025 14:06-0400Body temperature 97.3 [degF]GIULIA Sandoval MD Work Phone: [facility]09-08-2025 14:06-0400Body wajqqe68.5 kgGIULIA Sandoval MD Work Phone: [facility]09-08-2025 14:06-0400Diastolic blood zegennai51 mm[Hg]GIULIA Sandoval MD Work Phone: [facility]09-08-2025 14:06-0400Heart rate86 /min GIULIA Sandoval MD Work Phone: [facility]09-08-2025 14:06-0400Respiratory rate 16 /SofíaGIULIA Sandoval MD Work Phone: [facility]09-08-2025 14:06-3307EuM5% (BldA) [Mass fraction]98 %GIULIA Sandoval MD Work Phone: [facility]09-08-2025 14:06-0400Systolic blood tuouqafj274 mm[Hg]GIULIA Sandoval MD Work Phone: [facility]09-02-2025 13:51-0400Body bevzul48.3 kgGIULIA Sandoval MD Work Phone: [facility]09-02-2025 13:51-0400Diastolic blood mropajhx90 mm[Hg]GIULIA Sandoval MD Work Phone: [facility]09-02-2025 13:51-0400Heart rate90 /min GIULIA Sandoval MD Work Phone: [address] [place], [place] 3512509-02-2025 13:51-0400Respiratory rate 18 /SofíaGIULIA Sandoval MD Work Phone: [facility]09-02-2025 13:51-7528UvQ5% (BldA) [Mass fraction]96 %GIULIA Sandoval MD Work Phone: [facility]09-02-2025 13:51-0400Systolic blood cayeauhc442 mm[Hg]GIULIA Sandoval MD Work Phone: [facility]08-25-2025 13:42-0400Body temperature 97.5 [degF]GIULIA Sandoval MD Work Phone: [facility]08-25-2025 13:42-0400Body xbynde83.3 kgGIULIA Sandoval MD Work Phone: [facility]08-25-2025 13:42-0400Diastolic blood trqydebz99 mm[Hg]GIULIA Sandoval MD Work Phone: [facility]08-25-2025 13:42-0400Heart rate86 /min GIULIA Sandoval MD Work Phone: [facility]08-25-2025 13:42-0400Respiratory rate 16 /SofíaGIULIA Sandoval MD Work Phone: [facility]08-25-2025 13:42-9114MwI8% (BldA) [Mass fraction]96 %GIULIA Sandoval MD Work Phone: [facility]08-25-2025 13:42-0400Systolic blood mm[Hg]GIULIA Sandoval MD Work Phone: [facility]08-18-2025 14:12-0400Body temperature 97.59 [degF]GIULIA Sandoval MD Work Phone: [place] [address]-18-2025 14:12-0400Body nmvylk36.9 kgGIULIA Sandoval MD Work Phone: [place] [address]-18-2025 14:12-0400Diastolic blood exhhbzbb120 mm[Hg]GIULIA Sandoval MD Work Phone: [facility] HospitalComment on above:repeat 139/95 12-13-2024 14:12-0400Heart rate91 /SofíaGIULIA Sandoval MD Work Phone: [facility]08-18-2025 14:12-0400Respiratory rate 16 /SofíaGIULIA Sandoval MD Work Phone: [facility]08-18-2025 14:12-7401YvM0% (BldA) [Mass fraction]97 %GIULIA Sandoval MD Work Phone: [facility]08-18-2025 14:12-0400Systolic blood mm[Hg]GIULIA Sandoval MD Work Phone: [facility] HospitalComment on above:repeat 139/95 11-11-2024 14:06-0400Body .7 [degF]GIULIA Sandoval MD Work Phone: [facility]07-17-2025 14:06-0400Body kdacmp80.6 kgGIULIA Sandoval MD Work Phone: [facility]07-17-2025 14:06-0400Diastolic blood laiifysp70 mm[Hg]GIULIA Sandoval MD Work Phone: [facility]07-17-2025 14:06-0400Heart rate70 /min GIULIA Sandoval MD Work Phone: [facility]07-17-2025 14:06-0400Respiratory rate 18 /SofíaGIULIA Sandoval MD Work Phone: [facility]07-17-2025 14:06-4425FiD0% (BldA) [Mass fraction]97 %GIULIA Sandoval MD Work Phone: [facility]07-17-2025 14:06-0400Systolic blood fxavjhfo823 mm[Hg]GIULIA Sandoval MD Work Phone: [facility]07-08-2025 13:34-0400Diastolic blood mm[Hg]Yissel Arevalo CREDIT CARD CLERK Work Phone: [facility]Onhsijqrsu03-[facility]-9983 13:34-0400Systolic blood uxajwlub741 mm[Hg]Yissel Arevalo CREDIT CARD CLERK Work Phone: [facility] WashingtonCcklpiqhmz06-08-5225 13:08-0400Body mass index (BMI) [Ratio]24.36 kg/m2Yissel Arevalo CREDIT CARD CLERK Work Phone: [facility] WashingtonUojddfdbnd39-25-1129 13:08-0400Body temperature 97.81 [degF]Yissel Arevalo CREDIT CARD CLERK Work Phone: [facility] WashingtonFvfypjyslw97-90-6611 13:08-0400Body khrylv57.02 kgYissel Arevalo CREDIT CARD CLERK Work Phone: [facility] WashingtonMzcliofnpn79-11-1824 13:08-0400Heart qpom030 /min Yissel Arevalo CREDIT CARD CLERK Work Phone: [facility] WashingtonHmwuzqqueo21-79-6587 13:08-0400Respiratory rate22 /minYissel Arevalo CREDIT CARD CLERK Work Phone: [facility] WashingtonLephyutwzp30-71-8432 13:08-0316OhX7% (BldA) [Mass fraction]96 %Yissel Arevalo CREDIT CARD CLERK Work Phone: [facility] WashingtonLdqfezihhe84-23-8512 15:14-0400Body temperature 98.24 [degF]Clarissa [facility]05-20-2025 15:14-0400Diastolic blood mm[Hg]Clarissa [facility]05-20-2025 15:14-0400Heart ljbt691 /minPatrick [facility]05-20-2025 15:14-0400Respiratory rate16 /minPasandie [facility]05-20-2025 15:14-0400Systolic blood mkzmiekj318 mm[Hg]Clarissa [facility]04-08-2025 14:19-0400Body mass index (BMI) [Ratio]25.6 kg/m2Yissel Arevalo CREDIT CARD CLERK Work Phone: [facility] WashingtonPexlizimgj53-24-7712 14:19-0400Body temperature 98.49 [degF]Yissel Solomonanahi CREDIT CARD CLERK Work Phone: [facility] WashingtonCejhylmgvp31-95-0275 14:19-0400Body ihbegn23.92 kgYissel Arevalo CREDIT CARD CLERK Work Phone: [facility] WashingtonCxeumxqpvw49-55-1179 14:19-0400Diastolic blood mm[Hg]Yissel Arevalo CREDIT CARD CLERK Work Phone: [facility] WashingtonOannxdthnj52-46-3778 14:19-0400Heart rate94 /min Yissel Arevalo CREDIT CARD CLERK Work Phone: [facility] WashingtonHhcqorvrmy95-19-4306 14:19-5243CwL6% (BldA) [Mass fraction]96 %Yissel Arevalo CREDIT CARD CLERK Work Phone: noSaint [facility] WestMklumxnxeo20-71-6795 14:19-0400Systolic blood ssyfkuji438 mm[Hg]Yissel Arevalo CREDIT CARD CLERK Work Phone: [facility] WashingtonNzifqlcqmj40-11-1786 10:45-0500Body jrkykk576.8 cmPaulajaquelinemed BaltazarDorman CREDIT CARD CLERK Work Phone: [facility] WashingtonIhrdqbhofo60-61-4137 10:45-0500Body mass index (BMI) [Ratio]24.97 kg/a0Vcssgnmi Dorman CREDIT CARD CLERK Work Phone: noSaint Joseph Hospital WestNhcfusyurq84-19-6527 10:45-0500Body temperature 98.71 [degF]Frida Bautistak CREDIT CARD CLERK Work Phone: [facility] WashingtonAqjikipezg68-14-9881 10:45-0500Body fshgri56.93 kgFrida Dorman CREDIT CARD CLERK Work Phone: [facility] WashingtonOlzzakvbbi05-30-2281 10:45-0500Diastolic blood tftwlwem12 mm[Hg]Frida Askewtrick CREDIT CARD CLERK Work Phone: [facility] WashingtonTxsndfwsxw15-32-8284 10:45-0500Heart tnud865 /min Frida Askewtrick CREDIT CARD CLERK Work Phone: [facility] WashingtonYcyfpqnqhz54-16-2459 10:45-0500Respiratory rate18 /minFrida Bautistak CREDIT CARD CLERK Work Phone: [facility] WashingtonMqpyvfhjey28-46-0157 10:45-5537FiE5% (BldA) [Mass fraction]96 %Frida Bautistak CREDIT CARD CLERK Work Phone: [facility] WashingtonBwpsqteyer25-19-3423 10:45-0500Systolic blood hbxmsmar526 mm[Hg]Frida Dorman CREDIT CARD CLERK Work Phone: [facility] WashingtonOwvgnsvnxo19-84-3216 11:19-0400Body hmvnoc795.[address]10-11-2024 11:-0400Body mass index (BMI) [Ratio]24.33 kg/q6Cnsdq[address]10-11-2024 11:-0400Body twzpldkakpq95.81 [degF][address]10-11-2024 11:-0400Body jaxtjm65.[address]10-11-2024 11:19-0400Diastolic blood zqdpkjci84 mm[Hg][address]10-11-2024 11:19-0400Heart rate 109 /min[address]10-11-2024 11:-0400Respiratory rate20 /min[address]10-11-2024 11:19-6540KsS0% (BldA) [Mass fraction]95 %[address]10-11-2024 11:19-0400Systolic blood cfubnuic451 mm[Hg][address] [place], [place] 0515310-10-2024 14:35-0400Body rajlao936.8 cmFrida Dorman CREDIT CARD CLERK Work Phone: [facility] WashingtonNbpwzfyobn91-77-7687 14:35-0400Body mass index (BMI) [Ratio]24.34 kg/f8Lgofjewc Dorman CREDIT CARD CLERK Work Phone: [facility] WashingtonYdqugkyftr52-42-8792 14:35-0400Body temperature 99.1 [degF]Frida Dorman CREDIT CARD CLERK Work Phone: [facility] WashingtonTeouwlznsv00-94-5086 14:35-0400Body myorvu41.93 kgBranjana Dorman CREDIT CARD CLERK Work Phone: [facility] WashingtonYqvjcuxdiu43-01-7711 14:35-0400Diastolic blood gyfsismt05 mm[Hg]Frida Dorman CREDIT CARD CLERK Work Phone: [facility] WashingtonEznnbkdbzi32-96-2967 14:35-0400Heart twrc159 /min Frida Dorman CREDIT CARD CLERK Work Phone: [facility] WashingtonRxqfjfbpqv23-23-3006 14:35-0400Respiratory rate16 /minFrida Dorman CREDIT CARD CLERK Work Phone: [facility] WashingtonIqtronllbf35-41-8060 14:35-1153IbT4% (BldA) [Mass fraction]96 %Frida Dorman CREDIT CARD CLERK Work Phone: [facility] WashingtonQrhbogvgdt08-00-2554 14:35-0400Systolic blood qdvdzcsy761 mm[Hg]Frida Dorman CREDIT CARD CLERK Work Phone: [facility] WashingtonCiosztsnut14-31-1000 11:34-0400Body .8 Ana Cristina Boss MD Work Phone: 1(419)885-[address] [place], [place] [address]496110-01-2024 11:34-0400Body mass index (BMI) [Ratio]23.1 kg/m2Abdirashid Boss MD Work Phone: [facility]10-01-2024 11:34-0400Body kwczon07.03 kgRamichelle Boss MD Work Phone: [facility]08-30-2024 11:26-0400Body icgwmb356.[address]08-30-2024 11:26-0400Body mass index (BMI) [Ratio]23.5 kg/v6Cmblc[address]08-30-2024 11:26-0400Body wboqsaeizxr77.1 [degF][address]08-30-2024 11:26-0400Body veumci85.[address]08-30-2024 11:26-0400 Diastolic blood acwmlsps06 mm[Hg][address]08-30-2024 11:26-0400Heart bpuu371 /minU[facility]ro [address] [place], [place] 0515308-30-2024 11:26-0400 Respiratory rate16 /minMetro [address] [place], [place] 0515308-30-2024 11:26-1171GdC2% (BldA) [Mass fraction]96 %[address]08-30-2024 11:26-0400 Systolic blood vwlqozni707 mm[Hg][address]04-11-2024 12:38-0400Body zafplz350.8 cmBasel Maryjane PA Work Phone: [facility]04-11-2024 12:38-0400Body mass index (BMI) [Ratio]23.1 kg/w1Qismx Maryjane PA Work Phone: [facility]04-11-2024 12:38-0400Body .03 kgBasel Maryjane PA Work Phone: [facility] Encounters Encounter DateEncounter TypeCare ProviderFacilityStart: 38-94-6736bwsyhszvks Patrick R WATERSFacility:EU BellevueStart: 39-96-4745jbhkkwiywfWjadjtu R WATERS Facility:[facility]ueStart: 22-97-4099mdpuzbrvioIutkqbq R WATERSFacility:PHILIP CastromilwaukeeyStart: 02-15-2025 End: 30-93-9416ynsxyomswcH PHILLIP ENGELERFacility:[facility] Start: 02-08-2025 End: 39-56-1092nbiuyqifdyKIFM JO AICHHOLZFacility:[facility] Start: 01-24-2025 End: 89-36-3376ucsrknlyziPfqi J Aichholz CREDIT CARD CLERK-C Work Phone: [facility] Work Phone: Start: 01-24-2025 End: 99-32-2718Cjsywys encounter procedureYissel Arevalo CREDIT CARD CLERK-C-[facility] Work Phone: Start: 29-27-5281Uubsoii encounter procedureLisa Arevalo CREDIT CARD CLERK-C Work Phone: [facility]art: 01-17-2025 End: 84-18-8642vowhtrkjdhXZFHRamiro Eliascility:[facility] Start: 01-14-2025 End: 19-72-0845ekcinejysdQBDQ JO AICHHOLZFacility:[facility] Start: 01-13-2025 End: 41-24-2099rlkdjcqyxqUJJPRamiro Eliascility:[facility] Start: 01-12-2025 End: 76-63-0027oatijdpkaeEJQY JO AICHHOLZFacility:[facility] Start: 01-11-2025 End: 33-61-1594Mdhmwuytk encounterG Du Sandoval MD Work Phone: Radiation OncologyComment on above:Lab OrdersStart: 01-11-2025 End: 56-07-7113esuzkuwbfrFXDL JO AICHHOLZFacility:[facility] Start: 01-10-2025 End: 15-61-6690Zixlcxp encounter procedureG Du Sandoval MD Work Phone: Radiation OncologyComment on above:Malignant neoplasm of prostate (HCC) (Primary Dx)Start: 01-10-2025 End: 54-51-0896vnlswuelxlT PHILLIP ENGELERFacility:[facility] Start: 01-07-2025 End: 64-33-0649mrvdduvqheFDCO JO AICANAHIFacility:[facility] Start: 01-06-2025 End: 16-75-9022enhfucjllgPHHO JO AICSELECT [facility] UPMCYamelFaatrium health wake forest bapt[facility] wilkes medical centerity:[facility] Start: 01-05-2025 End: 36-11-2697tnrpodntcdYVCH JO AICSELECT [facility] UPMCYamelSt. Anthony Hospitality:[facility] Start: 01-04-2025 End: 56-87-3402mjwyhatqpyQUAS JO AICSELECT [facility] UPMCYamelSt. Anthony Hospitality:[facility] Start: 01-03-2025 End: 05-55-6667Yocokow encounter procedureG Du Sandoval MD Work Phone: Radiation OncologyComment on above:Malignant neoplasm of prostate (HCC) (Primary Dx)Start: 01-03-2025 End: 92-93-8766qbfetdvjhdGKan MARTINEZguadalupe county hospital:[facility] Start: 12-31-2024 End: 59-85-7284zbppfnynjgNYHT JO AICSELECT [facility] UPMCYamelChristus St. [facility] Start: 12-30-2024 End: 80-07-2652ctiqocdkwnHPKR JO AICSELECT [facility] UPMCYamelChristus St. [facility] Start: 12-29-2024 End: 04-49-6113bkprzchcdaDWVC JO AICSELECT [facility] UPMCBetitoatrium health wake forest bapt[facility] wilkes medical centerity:[facility] Start: 12-28-2024 End: 95-78-8188Hzgaihx encounter procedureG Du Sandoval MD Work Phone: Radiation OncologyComment on above:Malignant neoplasm of prostate (HCC) (Primary Dx)Start: 12-28-2024 End: 84-89-5852cubnclolssSJhon MARTINEZpenn state health holy spirit medical centerity:[facility] Start: 12-24-2024 End: 53-64-1733Vsnlbfkuk encounterG Du Sandoval MD Work Phone: Radiation OncologyComment on above:Patient Update Start: 12-24-2024 End: 25-05-6944kvmnjewbaxPZZKRamiro Osborneity:[facility] Start: 12-23-2024 End: 73-62-2273Fraqmwh encounter procedureKwasi Sandoval MD Work Phone: Radiation OncologyComment on above:Malignant neoplasm of prostate (HCC) (Primary Dx)Start: 12-23-2024 End: 51-23-5654mqkxnkscqkPGWORamiro Eliascility:[facility] Start: 12-22-2024 End: 37-09-8684gbwyeaklbyKDNLRamiro Osborneity:[facility] Start: 12-21-2024 End: 19-06-0127wdgwoukmvyKLTHRamiro Eliasuniversity of iowa hospitals and [facility] Start: 12-20-2024 End: 45-60-7190Wouaawq encounter procedureKwasi Sandoval MD Work Phone: Radiation OncologyComment on above:Malignant neoplasm of prostate (HCC) (Primary Dx)Start: 12-20-2024 End: 63-30-6679xzfoigybrgSKan MATRINEZacility:[facility] Start: 12-17-2024 End: 63-82-7191zgkgmlddctGCVJJavy Osborneohiohealth rivers[facility] Start: 12-16-2024 End: 42-31-1787Bgjxdbage Result EncounterGeneric External Data ProviderNOMS External Department UnsolicitedStart: 12-16-2024 End: 55-50-5618Dzdosldfc Result EncounterGeneric External Data ProviderNOMS External Department UnsolicitedStart: 12-16-2024 End: 30-22-1402Lssjgtu encounter procedureLab/Ivan Guerra Work Phone: Radiation OncologyComment on above:Malignant neoplasm of prostate (HCC)Start: 12-16-2024 End: 36-30-4595iwsjrwgykeNNYHRamiro Osborneity:[facility] Start: 12-15-2024 End: 02-61-7028ddqdgyjbenFNLFRamiro Osborneity:[facility] Start: 12-14-2024 End: 81-73-2050yngkwtwrvxNUUV JO AICSELECT [facility] UPMCBetitouniversity of iowa hospitals and clinics:[facility] Start: 12-13-2024 End: 65-39-9706naorhswtmuFKan MARTINEZacility:[facility] Start: 12-13-2024 End: 93-25-2842ikcuueiskzUVGJ JO AICSELECT [facility] UPMCYamelcility:[facility] Start: 12-13-2024 End: 42-14-1970Pjvidga encounter procedureG Du Sandoval MD Work Phone: Radiation OncologyComment on above:Malignant neoplasm of prostate (HCC) (Primary Dx)Start: 12-10-2024 End: 92-87-2843selwdvvilbWAXO JO AICHAKRON CHILDREN'S HOSPITALYamelSt. Anthony Hospitality:[facility] Start: 12-09-2024 End: 59-47-3193xlcpglnmviDDOB JO AICSELECT [facility] UPMCYamelSt. Anthony Hospitality:[facility] Start: 12-08-2024 End: 23-47-6509Ropiqzb encounter procedureG Du Sandoval MD Work Phone: Radiation OncologyComment on above:Malignant neoplasm of prostate (HCC) (Primary Dx)Start: 12-08-2024 End: 38-02-0638ntgwafdjavBKan MARTINEZacility:[facility] Start: 11-29-2024 End: 84-12-0326Zywnfyyvi Oncology NoteG Du Sandoval MD Work Phone: Radiation OncologyComment on above:Simulation Note Treatment PlanningStart: 11-29-2024 End: 85-09-8343jgqyteqrppTJhon MARTINEZacility:[facility] Start: 11-29-2024 End: 65-05-7737Opemjlu encounter procedureG Du Sandoval MD Work Phone: Radiation OncologyComment on above:Malignant neoplasm of prostate (HCC) (Primary Dx)Start: 11-26-2024 End: 96-48-2146qnzasndydaDpvthco R WATERSFacility:EU BellevueStart: 11-26-2024 End: 43-49-2346Nthmhaf encounter procedurePasandie LAWRENCE [facility] [place] start: 11-12-2024 End: 16-37-4366Zvymoq [facility] Comment on above:Colostomy status (CMS-HCC) (Primary Dx)Start: 11-11-2024 End: 98-11-6196Bjhyis outpatient visit 15 minutesG Du Sandoval MD Work Phone: Radiation OncologyComment on above:Malignant neoplasm of prostate (HCC) (Primary Dx)Start: 11-11-2024 End: 25-97-3997Dpxmevudo encounterG Du Sandoval MD Work Phone: Radiation OncologyComment on above:AppointmentStart: 11-11-2024 End: 25-89-5280nlohkrbthcHwbxkp E Graves RNRadiation OncologyComment on above: Patient EducationStart: 11-05-2024 End: 93-27-4342Pjibhdewt Result EncounterGeneric External Data ProviderNOMS External Department UnsolicitedStart: 11-05-2024 End: 95-18-6331Tsppqfudn Result EncounterGeneric External Data ProviderNOMS External Department UnsolicitedStart: 59-90-8693cpanwjstefV DU SANDOVAL [facility]tart: 11-05-2024 End: 83-35-5541Skovtzxedb hospital visit by physicianArrival Time Radiology Work Phone: Radiology Pet CTComment on above:Malignant neoplasm of prostate (HCC) [C61]Start: 11-02-2024 End: 58-76-4205Jnnxsv flowsheetYissel Arevalo CREDIT CARD CLERK Work Phone: noms CWM FMStart: 11-02-2024 End: 19-66-6124Cdfxkt flowsheetLisa Mickey CREDIT CARD CLERK Work Phone: NOMS CWM FMStart: 11-02-2024 End: 69-63-4772xrcmftuuerTTIE AICHHOLZNot AvailableStart: 11-02-2024 End: 59-59-0654Xnxvvq outpatient visit 25 minutesLisa Mickey PERKINS Work Phone: NOCK CWM FMComment on above:Primary hypertension (Primary Dx); BPH with elevated PSA; Adenocarcinoma of prostate (HCC); Colostomy in place (HCC)Start: 10-25-2024 End: 31-09-7364Jgmiqfb encounter procedureCcf ProviderOhiohealth Shelby Hospital DepartmentStart: 10-20-2024 End: 11-29-5340Bvrghv outpatient new 45 minutesG Du Sandoval MD Work Phone: Radiation OncologyComment on above:Malignant neoplasm of prostate (HCC) (Primary Dx)Start: 10-20-2024 End: 06-93-4300hzmkyiifafWZFHOJZ R WATERSFacility:[facility] Start: 10-20-2024 End: 77-91-4057Knmlgoadt encounterG Du Sandoval MD Work Phone: Cancer Appts MCComment on above:Nm Pet RequestStart: 10-04-2024 End: 39-24-9342Qrykvozyn Result EncounterGeneric External Data ProviderNOMS External Department UnsolicitedStart: 10-04-2024 End: 04-92-9959Hlcrwpcfz Result EncounterGeneric External Data ProviderNOMS External Department UnsolicitedStart: 10-01-2024 End: 97-72-8851hypzsgaposYmsauzm R WATERSFacility:EU [place]vueStart: 10-01-2024 End: 98-59-4533Gyrbfeu encounter procedureClarissa LAWRENCE [facility] [place] start: 09-27-2024 End: 59-39-3716qpkwqpptarUhvumfp R WATERSFacility:EU [place]vueStart: 09-27-2024 End: 89-32-2118Owefcxq encounter procedureClarissa [facility]ENCE [facility] [place] start: 09-15-2024 End: 09-86-6774lwgdzisnefLuitudx R MELINDAFacility:FTMCStart: 09-15-2024 End: 73-05-4023Vva Drop offPatrick R [employer] [facility] Start: 09-14-2024 End: 94-78-0304ovgbvvuawtPytabgb R WATERSFacility:EU [place]uskyStart: 09-14-2024 End: 00-33-2427Mcouqqd encounter procedurePatrick R LAWRENCE [facility] Charlie Start: 08-23-2024 End: 10-21-5172Lrc Drop offPatrick R [employer] [facility] Start: 08-23-2024 End: 89-36-3505fxoyscbloeQjkizsr R WATERSFacility:FTMCStart: 08-10-2024 End: 63-46-4278Ejedtv OnlyLisa Aichholz CREDIT CARD CLERK Work Phone: noms CWM FMComment on above:Elevated PSA (Primary Dx) Start: 08-09-2024 End: 37-21-7259Yojgglara Result EncounterLisa Aichholz CREDIT CARD CLERK Work Phone: noms External Department UnsolicitedStart: 08-09-2024 End: 31-84-5003Yryyuxlst Result EncounterLisa Aichholz CREDIT CARD CLERK Work Phone: noms External Department UnsolicitedStart: 08-06-2024 End: 85-30-9840Tnnygk OnlyLisa Aichholz CREDIT CARD CLERK Work Phone: noms CWM FMComment on above:Elevated PSA (Primary Dx); Asymptomatic microscopic hematuriaStart: 08-05-2024 End: 88-59-6175Wvgpbbrez Result EncounterYissel Arevalo CREDIT CARD CLERK Work Phone: noms External Department UnsolicitedStart: 08-05-2024 End: 64-16-3885Dsyajhmdb Result EncounterYissel Arevalo CREDIT CARD CLERK Work Phone: noms External Department UnsolicitedStart: 08-03-2024 End: 77-02-8225xeaaphxyvwGXYF AICHHOLZNot AvailableStart: 08-03-2024 End: 96-56-2811Iiiftx flowsWesley Arevalo CREDIT CARD CLERK Work Phone: [facility] CWM FMStart: 08-03-2024 End: 36-02-6586Cebqll flowsWesley Arevalo CREDIT CARD CLERK Work Phone: [facility] CWM FMStart: 08-03-2024 End: 04-35-1708Hmqmhlu encounter procedureYissel Arevalo CREDIT CARD CLERK Work Phone: noms CWM FMComment on above:Encounter for subsequent annual wellness visit (AWV) in Medicare patient (Primary Dx); Colostomy status (CMS/HCC); Primary hypertension (CMS/HCC); Prostate cancer screening; History of prediabetesStart: 05-03-2024 End: 35-36-7015Qkukar flowsLuis Bautistak CREDIT CARD CLERK Work Phone: [facility] CWM FMStart: 05-03-2024 End: 57-12-0760Gbkumk flowsheetBranjana Askewtrick CREDIT CARD CLERK Work Phone: noms CWM FMStart: 05-03-2024 End: 59-37-7344bkprnnjpgrTLPISYET FITZPATRICKNot AvailableStart: 05-03-2024 End: 75-49-3601Iykkyh outpatient visit 10 minutesBranjana Bautistak CREDIT CARD CLERK Work Phone: noms CWM FMComment on above:Upper respiratory tract infection, unspecified type (Primary Dx); Viral URI; Acute non-recurrent frontal sinusitisStart: 04-06-2024 End: 30-05-0401Wrgfvv Michele Dorman CREDIT CARD CLERK Work Phone: noms CWM FMComment on above:Primary hypertension (CMS/HCC)Start: 02-12-2024 End: 09-27-8999Ptyzwlhvpi and management of inpatientVAL ARTEAGAERALEProVeterans Health Administration HospitalStart: 02-12-2024 End: 95-18-4316Megxcsuqlu and management of inpatientABDIRASHID Myers [facility] HospitalStart: 02-11-2024 End: 02-88-4670Svyhixgatuxt Madan Dorman CREDIT CARD CLERK Work Phone: noms HealthcareStart: 02-06-2024 End: 01-88-3391bhxknsvxjiWOUE [facility] Hospitaltart: 02-06-2024 End: 18-53-7986Juolrwz encounter procedureMetro Pat Provider [address] [place] [address] Pre-Admission Clinic On [facility] on above:Preop testing (Primary Dx)Start: 02-06-2024 End: 28-06-7071Gyjlmxr encounter statusMetro [address] [place] [address] SystemStart: 02-05-2024 End: 99-94-2429flynlzbgqdLKRBEFZFLedy Chowdhury AvailableStart: 02-05-2024 End: 37-18-9015Wqvrxw outpatient visit 15 Allan Dorman CREDIT CARD CLERK Work Phone: noms CWM FMComment on above:Colostomy in place (CMS/HCC) (Primary Dx); Chronic idiopathic constipation; Viral URI; Pre-operative clearance; Primary hypertension (CMS/HCC)Start: 02-05-2024 End: 62-29-8491Spfgujkcnddv Madan Dorman CREDIT CARD CLERK Work Phone: noms HealthcareStart: 02-05-2024 End: 92-50-1857Iyutdm Shante Dorman CREDIT CARD CLERK Work Phone: noms CWM FMStart: 02-05-2024 End: 22-22-3588Waqmyw Shante Dorman GREGORIO Work Phone: [facility] FMStart: 01-27-2024 End: 50-79-3970Utfajo outpatient visit 40 minutesAbdirashid Boss MD Work Phone: [facility] Physicians General SurgeryComment on above: Colostomy status ([facility]-HCC) (Primary Dx); History of peritonitis; Parastomal hernia without obstruction or gangrene; Perforated bowel (CMS-HCC)Start: 01-27-2024 End: 23-54-6993vxzolfmqjaUIKI Louis [facility] HospitalStart: 01-10-2024 End: 89-02-6638Afuvwvpeta and management of inpatientTODD J [facility] HospitalStart: 01-09-2024 End: 44-58-2144Rjllfhtrnc and management of inpatientRAUL Louis [facility] HospitalStart: 12-26-2023 End: 48-98-5922kdcowcwdriRVQM [facility] HospitalStart: 12-26-2023 Encounter for other preprocedural examinationJESSVeterans Health Administration HospitalStart: 12-26-2023 End: 36-12-8624Qyccjea encounter procedureMetro [address] [facility]Admission [facility] On [facility] SystemComment on above:Pre-op testing (Primary Dx)Start: 12-26-2023 End: 11-78-4391Eqokypg encounter statusMetro [address] [place] [address] SystemStart: 74-06-5890jcylvgamyuFwkhuo X OrzechFacility:EU BellevueStart: 11-26-2023 End: 52-53-6171napmdbckxiPJEF [facility] HospitalStart: 11-25-2023 End: 90-29-4679wehhacimqyUPFWZW FAWWADNot AvailableStart: 11-04-2023 End: 85-27-9491Pupgsw outpatient visit 40 minutesAbdirashid Boss MD Work Phone: [facility] Physicians General SurgeryComment on above: Colostomy status (CMS-HCC) (Primary Dx); Perforated bowel (CMS-HCC); Parastomal hernia without obstruction or gangrene; History of peritonitisStart: 11-04-2023 End: 79-90-1561dlrrfouwgvDBLMUMMC GrenadaComment on above: Parastomal hernia without obstruction or gangrene (Primary Dx)Start: 10-16-2023 End: 16-59-3441carxndhcrdRWLMQTT M [facility]KShel[facility] HospitalStart: 10-16-2023 End: 00-19-5080Jvfivc outpatient visit 15 minutesSteli Louis MD Work Phone: [facility] Physicians General SurgeryComment on above: Perforated bowel (CMS-HCC) (Primary Dx)Start: 53-14-7634svxdwcyqigGcjgqa Orzech Facility:[facility] Centertart: 08-07-2023 End: 41-62-4208Umjqoz outpatient visit 15 minutesBasel Maryjane MARCO A Work Phone: [facility] Physicians General SurgeryComment on above: Diverticulitis (Primary Dx)Start: 08-07-2023 End: 53-94-2163gnbypfwjsiYXJUS [facility] HospitalStart: 07-28-2023 Telephone encounterMeritu Kessler Physicians General SurgeryStart: 51-46-2787rhmonarzkoVQ [facility] PPGStart: 07-19-2023 End: 58-76-2220Zjwkpobtos and management of inpatientJESSICA JUANPremier Health [facility] HospitalStart: 03-27-2023 End: 69-78-7236Cgrmcxf encounter procedureFrida Dorman NP Work Phone: NOKS HealthcareStart: 09-20-2022 End: 41-06-3772wkobvbzhgjYG ROSA HOUSEFacility:H1 Procedures DateProcedureProcedure DetailPerforming ClinicianStart: 69-27-3702WXO CBC W AUTO DIFF BLDGeneric External Data ProviderStart: 52-91-6750Auajq count complete auto&auto difrntl wbcG Du Sandoval MD Work Phone: Start: 88-80-9850WH PET/CT PROSTATE WBGeneric External Data ProviderStart: 95-45-6312Cdz imaging ct attenuation skull base mid-thighG uD Sandoval MD Work Phone: Start: 03-01-9232Ya scrotum & contentsGeneric External Data ProviderStart: 68-17-1619Gwkxkshuauujzfy guided transrectal cryoablation of prostatePatrick LAWRENCE Comment on above:TRUS bx of prostateStart: 08-09-2024 PSA TOTAL+% FREELisa Mickey CREDIT CARD CLERK Work Phone: Start: 87-06-1317ZXY CBC WITH AUTO DIFFLisa Mickey CREDIT CARD CLERK Work Phone: Start: 51-87-0362Kml routine ecg w/least 12 lds trcg only w/o i&rSorquidea Jara MD Work Phone: start: 97-16-2939UhxljodalnlZyoetxwx Dorman CREDIT CARD CLERK Work Phone: Start: 22-69-6473Wnsjb metabolic panel calcium total Baljeet Dhaliwal MD Work Phone: start: 11-23-2023H/O: colostomyColostomy statusAbdirashid Boss MD Work Phone: Start: 08-19-2023H/O: colostomyStatus post Kathy procedureBrittany Dorman CREDIT CARD CLERK Work Phone: Start: 57-11-0172Ulouf depression screening assessment Suze Matthew CNAStart: 50-32-5818PiitqwrgjbySvztc Clark CNAColonoscopyPatrick LAWRENCE ColostomyClarissa LAWRENCE H/O: colostomyColostomy status (CMS-HCC)Abdirashid Boss MD Work Phone: H/O: colostomyColostomy status (CMS-HCC)Abidrashid Boss MD Work Phone: H/O: colostomyColostomy status (CMS/HCC)Yissel Arevalo NP Work Phone: H/O: colostomyColostomy status (CMS-HCC)Scot Pearson H/O: colostomyStatus post Kathy procedureYissel Arevalo CREDIT CARD CLERK-C Work Phone: History of hernia repairPageorgetown community hospitalk LAWRENCE Plan of Treatment DateCare ActivityDetailAuthorStart: 08-39-4107Tfbhttqok for malignant neoplasm of colonNOMS HealthcareStart: 19-13-1068NFD Vaccine (1 - 1-dose 75+ series)RSV Vaccine (1 - 1-dose 75+ series)[facility] Dublintart: 69-84-1180Jgtvzlyas for malignant neoplasm of colonColonoscopyLakeHealth Beachwood [facility] SystemStart: 12-25-2026 Diabetes ScreeningDiabetes ScreeningSelect Medical [facility] Hospital - Dublintart: 08-08-2025 End: 45-74-9318Kaqccof encounter ajaifhpdp13/13/2026 4:30 PM EDT Office Visit [facility] [address] [place] [address] Yissel Arevalo NP [address] [place] [address] [facility] FMStart: 04-08-2026Medicare Annual Wellness (AWV) Medicare Annual Wellness (AWV)NOMS HealthcareStart: 70-14-7086Xsgakrhba for malignant neoplasm of colonColonoscopyProBarberton Citizens Hospitaltart: 02-21-2025 Tobacco ScreeningTobacco ScreeningProBarberton Citizens Hospitaltart: 02-15-2025 End: 55-63-4211Iapjnxu encounter xegpnoyzu92/21/2025 1:45 PM EDT Office Visit Radiation Oncology [address] [place] [place] [address] Kwasi Sandoval MD [address] [place] [address] [place] [address] 4 week final radiation follow upRadiation OncologyComment on above:4 week final radiation follow upStart: 33-30-2352Zctvw BMI ScreeningAdult BMI ScreeningProUniversity Hospitals Parma Medical Centerca Health SystemStart: 99-32-1596Ciwktrm ScreeningTobacco ScreeningProUniversity Hospitals Parma Medical Centerca Health SystemStart: 02-08-2025 End: 11-12-6507Hbgmminc specific Ag [Mass/volume] in Serum or PlasmaPROSTATE- SPECIFIC ANTIGEN DIAGNOSTIC Lab Routine Malignant neoplasm of prostate (HCC) Expected: 02/08/2025 (Approximate), Expires: 05/10/2025[facility] Work Phone: Comment on above:Expected: 02/08/2025 (Approximate), Expires: 05/10/2025Start: 02-08-2025 End: 85-71-5247Jijgkek encounter wyxqosdzq64/14/2025 9:00 AM EDT Office Visit [facility] [address] [place] [address] PSA labNortSelect Specialty Hospital LaboratoryComment on above:PSA labStart: 02-13-4869Obinf BMI ScreeningAdult BMI ScreeningLakeHealth Beachwood Medical Center SystemStart: 16-83-3878Mxrbbcm ScreeningTobacco ScreeningLakeHealth Beachwood Medical Center SystemStart: 01-24-2025 End: 58-13-5524Ldpmaiz encounter xoqyxnbwu08/29/2025 3:20 PM EDT Office Visit [facility] [address] [place] [address] Yissel Arevalo NP [address] [place] [address] [facility] FMStart: 01-17-2025 End: 30-62-8799Vpkurir encounter procedureRadiation OncologyComment on above: ProstateLocation: SA-ON TREATMENT REVStart: 01-14-2025 End: 54-49-9969Ixyiuks encounter wyobavcxo54/19/2025 1:30 PM EDT Appointment Radiation Oncology [address] [place] [address] Prostate Radiation OncologyComment on above:ProstateStart: 01-13-2025 End: 16-96-9080Ucdwsve encounter wrcfxovsc85/18/2025 1:30 PM EDT Appointment Radiation Oncology [address] [facility] [place] [address] Prostate Radiation OncologyComment on above:ProstateStart: 01-12-2025 End: 25-37-5835Pxhbnub encounter qbhxesucf72/17/2025 1:30 PM EDT Appointment Radiation Oncology [address] [facility] [place] [address] Prostate Radiation OncologyComment on above:ProstateStart: 01-11-2025 End: 89-64-3540Hzkhqjs encounter ynncmjgga13/16/2025 1:30 PM EDT Appointment Radiation Oncology [address] [facility] [facility] [address] Prostate Radiation OncologyComment on above:ProstateStart: 01-10-2025 End: 30-03-3607Vgivspl encounter procedureRadiation OncologyComment on above: ProstateLocation: [facility]-ON TREATMENT REVStart: 31-59-3968Csscldpet for malignant neoplasm of colonSelect Medical [facility] - Dublintart: 01-07-2025 End: 03-51-3026Ilarkkv encounter avpsoppkl53/12/2025 1:30 PM EDT Appointment Radiation Oncology [address] [facility] [facility] [place] [address] Prostate Radiation OncologyComment on above:ProstateStart: 01-06-2025 End: 20-31-7713Pxcwmtv encounter zekehybij04/11/2025 1:30 PM EDT Appointment Radiation Oncology [address] [facility] [place] [address] Prostate Radiation OncologyComment on above:ProstateStart: 01-05-2025 End: 98-17-5799Tqqtdxs encounter sznjfibqn26/10/2025 1:30 PM EDT Appointment Radiation Oncology [address] [facility] [place] [address] Prostate Radiation OncologyComment on above:ProstateStart: 01-04-2025 End: 15-25-5646Pfiayli encounter dfrjwzjai23/09/2025 1:30 PM EDT Appointment Radiation Oncology [address] [place] [address] Prostate Radiation OncologyComment on above:ProstateStart: 01-03-2025 End: 72-28-1815Aqzbavi encounter procedureNOMS [facility] FMComment on above:Prostate Location: [facility] TREATMENT REVStart: 12-31-2024 End: 42-66-1990Hpejpuj encounter owccmveix75/05/2025 12:00 PM EDT Appointment Radiation Oncology [address] [place] [address] Prostate Radiation OncologyComment on above:ProstateStart: 12-30-2024 End: 17-36-0131Rpihnhl encounter /04/2025 1:15 PM EDT Appointment Radiation Oncology [address] [place] [address] Prostate Radiation OncologyComment on above:ProstateStart: 12-29-2024 End: 45-84-3038Tmzuqnn encounter fdlriqhpb94/03/2025 1:15 PM EDT Appointment Radiation Oncology [address] [place] [address] Prostate Radiation OncologyComment on above:ProstateStart: 12-28-2024 End: 45-43-3849Hgkiike encounter procedureRadiation OncologyComment on above: ProstateLocation: [facility]-ON TREATMENT REVStart: 78-02-7165Jvojxbtsi vaccinationNOKS HealthcareStart: 89-57-6615Bapfu BMI ScreeningAdult BMI ScreeningProUniversity Hospitals Parma Medical Centerca Health SystemStart: 58-54-0796Mmmmaly ScreeningTobacco ScreeningProUniversity Hospitals Parma Medical Centerca Health SystemStart: 12-24-2024 End: 69-87-7533Yccknal encounter figfraghy75/29/2025 1:15 PM EDT Appointment Radiation Oncology [address] [place] [address] Prostate Radiation OncologyComment on above:ProstateStart: 12-23-2024 End: 18-27-9716Bogyvpg encounter biilepeqg38/28/2025 1:15 PM EDT Appointment Radiation Oncology [address] [place] [address] Prostate Radiation OncologyComment on above:ProstateStart: 12-22-2024 End: 13-79-2806Tnqytwt encounter qhapzxmer07/27/2025 1:15 PM EDT Appointment Radiation Oncology [address] [place] [address] Prostate Radiation OncologyComment on above:ProstateStart: 12-21-2024 End: 78-69-2802Rmvckzl encounter gqeigeewn62/26/2025 1:15 PM EDT Appointment Radiation Oncology [address] [place] [address] Prostate Radiation OncologyComment on above:ProstateStart: 12-20-2024 End: 89-22-4405Yleatle encounter procedureRadiation OncologyComment on above: ProstateLocation: [facility]-ON TREATMENT REVStart: 12-17-2024 End: 40-68-0247Cezotdb encounter xduzitzqp27/22/2025 1:15 PM EDT Appointment Radiation Oncology [address] [place] [address] Prostate Radiation OncologyComment on above:ProstateStart: 12-16-2024 End: 29-65-2583Woqiwxw encounter procedureRadiation OncologyComment on above: Prostate, CBC todayRad labStart: 12-15-2024 End: 47-95-5191Jtiggvi encounter whymwdapq37/20/2025 1:15 PM EDT Appointment Radiation Oncology [address] [place] [address] Prostate Radiation OncologyComment on above:ProstateStart: 12-14-2024 End: 01-93-9633VOQ W Auto Differential panel - BloodCOMPLETE BLOOD COUNT AND DIFFERENTIAL Lab Routine Malignant neoplasm of prostate (HCC) Expected: (Approximate), Expires: 03/09/2025[facility] Work Phone: Comment on above:Expected: 12/14/2024 (Approximate), Expires: 03/09/2025Start: 12-14-2024 End: 35-03-5845Fwbmibi encounter wjcmnvsze84/19/2025 12:45 PM EDT Appointment Radiation Oncology [address] [place] [address] Prostate Radiation OncologyComment on above:ProstateStart: 12-08-2024 End: 92-84-7695Juentpl encounter procedureRadiation OncologyComment on above:NEW START, prostateNEW START, Prostate pt prefersStart: 11-29-2024 End: 58-56-2004Qhqnbhj encounter procedureRadiation OncologyComment on above:Pre simSIM - PROSTATE - NEEDS CONSENTStart: 11-12-2024 End: 96-76-8711JJ Abdomen and Pelvis W contrast IVCT abdomen and pelvis with contrast Imaging Routine Colostomy status ([facility]-HCC) Expected: 11/12/2024, Expires: 11/12/2025[facility] Work Phone: comment on above:Expected: 11/12/2024, Expires: 11/12/2025Start: 11-11-2024 End: 27-19-5639Qrufkpo encounter nihyvmhqz32/17/2025 2:15 PM EDT Office Visit Radiation Oncology [address] [place] [place] [address] Kwasi Sandoval MD [address] [place] [place] [address] follow up from PETRadiation OncologyComment on above:follow up from PETStart: 11-05-2024 End: 81-84-2406Kkvjfuh encounter jvaaeypjv05/11/2025 12:00 PM EDT Appointment Radiology Pet CT [address] [place] [place] [address] PS[facility] Radiology Pet CTComment on above:PSMAStart: 11-02-2024 End: 48-97-0053Hmkurom encounter xathcpwlw72/08/2025 1:00 PM EDT Office Visit [facility] [address] [place] [address] Yissel Arevalo, GREGORIO [address] [place] [address] [facility] FMStart: 10-27-2024 End: 85-46-3095BJR+CT Guidance for localization of tumor of Whole body-- W 18F- FDG IVNM PET/CT PROSTATE WHOLE BODY IMAGING Radiology Routine Malignant neoplasm of prostate (HCC) Expected: 10/27/2024, Expires: 11/19/2025[facility] Work Phone: Comment on above:Expected: 10/27/2024, Expires: 11/19/2025Start: 77-66-1174Whriulu ScreeningTobacco ScreeningLakeHealth Beachwood Medical Center SystemStart: 09-05-2024 End: 29-37-0886Okxquaue identified in Urine by CultureUrine culture (clean catch) Microbiology Routine Asymptomatic microscopic hematuria Expected: 2024 (Approximate), Expires: 08/06/2025[facility] HealthcareComment on above:Expected: 09/05/2024 (Approximate), Expires: 08/06/2025Start: 09-05-2024 End: 47-63-6332Bhizjwoasp complete panel - UrineUrinalysis with reflex microscopic (clean catch) Lab Routine Asymptomatic microscopic hematuria Expe cted: 09/05/2024 (Approximate), Expires: 08/06/2025[facility] HealthcareComment on above:Expected: 09/05/2024 (Approximate), Expires: 08/06/2025Start: 08-06-2024 Adult BMI ScreeningAdult BMI ScreeningDuke Healthtart: 08-06-2024 End: 15-56-2548XSI, total and freePSA, total and free Lab Routine Elevated PSA Expected: 08/06/2024 (Approximate), Expires: 08/06/2025[facility] Work Phone: Comment on above:Expected: 08/06/2024 (Approximate), Expires: 08/06/2025Start: 57-19-8978Hgsvcwg ScreeningTobacco ScreeningLakeHealth Beachwood Medical Center SystemStart: 08-03-2024 End: 67-07-6698ZAC W Auto Differential panel - BloodCBC and differential Lab Routine Primary hypertension (CMS/HCC) Expected: 08/03/2024 (Approximate), Expires: 08/03/2025[facility] Work Phone: Comment on above:Expected: 08/03/2024 (Approximate), Expires: 08/03/2025Start: 08-03-2024 End: 67-34-2778Xcrbmzbrrapbe metabolic 2000 panel - Serum or PlasmaComprehensive metabolic panel Lab Routine Primary hypertension ([facility]/HCC) History of prediabetes Expected: 08/03/2024 (Approximate), Expires: 08/03/2025NOKS HealthcareComment on above:Expected: 08/03/2024 (Approximate), Expires: 08/03/2025Start: 08-03-2024 End: 22-55-2934Nmqpdeotfp A1c/Hemoglobin.total in BloodHemoglobin A1c Lab Routine History of prediabetes Expected: 08/03/2024 (Approximate), Expires: 08/03/2025[facility] HealthcareComment on above:Expected: 08/03/2024 (Approximate), Expires: 08/03/2025Start: 08-03-2024 End: 64-37-9461Mtyotzccsneb/Creatinine panel in random UrineMicroalbumin / creatinine, urine ratio Lab Routine Primary hypertension ([facility]) History of prediabetes Expected: 08/03/2024 (Approximate), Expires: 08/03/2025[facility] HealthcareComment on above:Expected: 08/03/2024 (Approximate), Expires: 08/03/2025Start: 08-03-2024 End: 70-45-9818Mhaiaol encounter sbkousgnq97/08/2025 2:00 PM EDT Office Visit [facility] [address] [place] [address] Frida Dorman NP [address] [place] [address] [facility] FMStart: 08-03-2024 End: 66-42-0722Fvhqkvtn specific Ag [Mass/volume] in Serum or PlasmaPSA Lab Routine Prostate cancer screening Expected: 08/03/2024 (Approximate), Expires: 08/03/2025[facility] HealthcareComment on above:Expected: 08/03/2024 (Approximate), Expires: 08/03/2025Start: 08-03-2024 End: 27-49-2487Nstzqgvcwf complete panel - UrineUrinalysis with reflex microscopic (clean catch) Lab Routine Primary hypertension (CMS/HCC) Historyof prediabetes Expected: 08/03/2024 (Approximate), Expires: 08/03/2025NOMS HealthcareComment on above:Expected: 08/03/2024 (Approximate), Expires: 08/03/2025Start: 81-28-1858Xhkru BMI ScreeningAdult BMI ScreeningProMarietta Osteopathic Clinic SystemStart: 80-43-1539Oaicwdszrf ScreeningDepression ScreeningProMarietta Osteopathic Clinic SystemStart: 64-88-6072Zucbxms ScreeningTobacco ScreeningProMarietta Osteopathic Clinic SystemStart: 05-03-2024 End: 34-83-5795Ijjomun encounter agufacujp15/06/2025 10:30 AM EST Office Visit [facility] [address] [place] [address] Frida Dorman, GREGORIO [address] [place] [address] [facility] FMStart: 74-16-2774Zqpozsu Directive Discussion Advance Directive DiscussionSelect Medical [facility] Rehabilitation Hospital - Dublintart: 01-01-2025Medicare Annual Wellness VisitMedicare Annual Wellness VisitSelect Medical [facility] Hospital - Dublintart: 03-29-2024 End: 49-87-0454Rmgfvol encounter pnmlkycqh57/02/2024 3:00 PM EST Office Visit [facility] [address] [place] [address] Frida Dorman NP [address] [place] [address] [facility] FMStart: 11-30-2024Medicare Annual Wellness (AWV) Medicare Annual Wellness (AWV)NOM HealthcareStart: 02-12-2024 End: 71-22-9637Zxvuynzqg to same day surgery ozpwuz2302/12/2024 7:30 AM EDT - 02/12/2024 1:00 PM EDT Surgery [facility] - Surgery [address] [place] [address]. [place] [address] [place] [address] [place] [address], [address] [place] [address] DAVINCI TAKEDOWN COLOVESICAL FISTULA [01055 (CPT )][facility] SurgeryComment on above:DAVINCI TAKEDOWN COLOVESICAL FISTULA [78803 (CPT )]Start: 02-12-2024 End: 98-48-7412Mdrexym enterostomy lg/small intestineCLOSURE COLOSTOMY COLOSTOMY STATUS 02/12/2024 7:30 AM EDTTOLEDO SURGERYStart: 02-12-2024 End: 43-56-5320Klzvsabwc/jejunostomy non-tubeILEOSTOMY COLOSTOMY STATUS 02/12/2024 7:30 AM EDTTOLEDO SURGERYStart: 40-39-0179Amnryonmpu hospital visit by aprnwnsuf79/17/2024 7:30 AM EDT Hospital Encounter [facility] Surgery [address] [place] [address].[place] [address] [place] [address] [place] [address], [address] [place] [address] [facility] SurgeryStart: 02-12-2024 End: 13-39-3781Ortoluxq laparoscopy px intestine xcp rectumDAVINCI TAKEDOWN COLOVESICAL FISTULA COLOSTOMY STATUS 02/12/2024 7:30 AM EDTTOLEDO SURGERYStart: 01-27-2024 End: 86-94-4867Uwimhoi encounter ysdrcsrxt93/01/2024 11:30 AM EDT Office Visit [facility] [address] [place] [address]. [address], [place] [address] Abdirashid Boss MD [address] [facility], [address] [place] [address] [facility] Start: 01-09-2024 End: 81-95-6310Qgumctcwx to same day surgery mnpmoq9301/09/2024 12:30 PM EDT - 01/09/2024 1:30 PM EDT Surgery [facility] Endoscopy [address] [place] [phone] Abdirashid Boss MD [address] [facility], [address] [place], [place] COLONOSCOPY DIAGNOSTIC / PER ANUS AND PER COLOSTOMY [23624 (CPT )][facility] Endoscopy Comment on above:COLONOSCOPY DIAGNOSTIC / PER ANUS AND PER COLOSTOMY [27330 (CPT )]Start: 01-09-2024 End: 10-88-5872Skfgqozlylm flx dx w/collj spec when pfrmdCOLONOSCOPY DIAGNOSTIC / SCREENING COLOSTOMY STATUS 01/09/2024 12:30 PM EDTTOLEDO ENDOSCOPYStart: 25-69-0134Hajeoeexcl hospital visit by hshytacvm12/13/2024 12:30 PM EDT Hospital Encounter [facility] Endoscopy [address] [place] [phone] Abdirashid Boss MD [address] [facility], [address] [place] [address] [facility] EndoscopyStart: 44-51-0697Ohqfj-19 Vaccine ( season)Covid-19 Vaccine ( season)[facility]ubl[facility]art: 26-35-2908Eexaqxbkj vaccinationMercy Hospital WashingtonStart: 12-26-2023 End: 43-93-3455Vndsswa encounter jpqxwdvij60/30/2024 10:45 AM EDT Procedure visit [facility] On [address] [place] [address]QkwXljsoz [facility]: 11-26-2023 End: 04-75-7664Ofcdjat encounter zelnitnnn01/31/2024 2:30 PM EDT Appointment [facility] - [place] Imaging [address] [place] [address] [address] [place] [address] Abdirashid Boss MD [address] [facility] [facility] [facility] [place] [address] [facility] - CT ImagingStart: 11-04-2023 End: 15-30-9421EL Abdomen and Pelvis W contrast IVCT abdomen and pelvis with contrast Imaging Routine Parastomal hernia without obstruction or gangrene Expected: 11/04/2023, Expires: 11/03/2024[facility] Work Phone: comment on above:Expected: 11/04/2023, Expires: 11/03/2024Start: 11-04-2023 End: 27-94-5328Satiiub encounter ehdlvmqbl01/09/2024 1:30 PM EDT Office Visit [facility] [address] [place] [address]. [address] [place] [id number] Abdirashid Boss MD [address] [facility], [address] [place] [address] [facility] Start: 10-16-2023 End: 34-76-4241Fgkgjqd encounter iozkcbcbs56/20/2024 3:30 PM EDT Office Visit [facility] [address] [place] [address]. [address] [place] [address] [place] [address] [place] [address] [address] [place] [address] [facility] General SurgeryStart: 32-62-6311Baiy Risk ScreeningFall Risk ScreeningDuke Healthtart: 67-82-4511Fqvcnkgakjas Vaccine: 65+ Years (1 of 1 - PCV) Pneumococcal Vaccine: 65+ Years (1 of 1 - PCV)[facility] HealthcareStart: 2008 Administration of varicella zoster vaccineZoster (Shingles) Vaccine (1 of 2) [facility]: 21-29-7003Mpwqcvaozahr Vaccine: 50+ (1 of 1 - PCV) Pneumococcal Vaccine: 50+ (1 of 1 - PCV)[facility]: 2008 Pneumococcal Vaccine: 65+ Years (1 of 1 - PCV)Pneumococcal Vaccine: 65+ Years (1 of 1 - PCV)[facility]: 97-31-0260Dbdvtzly Vaccine (1 of 2)Shingrix Vaccine (1 of 2)[facility]: 89-58-5179Gqainmjn specific antigen measurementProstate Cancer Screening DiscussionSelect Medical [facility] - Dublintart: 2003 Screening for malignant neoplasm of colonSelect Medical [facility] - [facility]ublintart: 11-12-7124Bilvu panelLipid ScreeningSelect Medical [facility] - [facility]ublintart: 38-97-5124GMcU,Tdap and Td Vaccines (1 - Tdap)DTaP,Tdap and Td Vaccines (1 - Tdap)[facility]: 43-11-7757Toqsz microalbumin profileDTaP,Tdap,Td Vaccine (1 - Tdap)[facility]: 83-72-4593Brszgeo ScreeningAnxiety ScreeningSelect Medical [facility] - Dublintart: 27-93-8626Yhtchkbwfz ScreeningDepression ScreeningSelect Medical [facility]intart: 81-73-3685Hqmuwhpns C screeningHepatitis C ScreeningSelect Medical [facility]art: 75-87-3397Zmfcffwmq aortic aneurysm screeningAbdominal Aortic Aneurysm Screening [facility]: 02-15-1959Medicare Annual Wellness VisitMedicare Annual Wellness VisitDuke Healthtart: 84-95-3226Kbqzofczm for malignant neoplasm of colonNOSaint [facility]: 66-29-8571Mpkqfggjwy includes GFR, serumCreatinine includes GFR, serum Lab Routine Parastomal hernia without obstruction or gangrene 1 Occurrences starting 11/04/2023 until 11/03/2024[facility] Occurrences starting 11/04/2023 until 11/03/2024 End: 40-26-8986Rmbxfcmzmg includes GFR, serumCreatinine includes GFR, serum Lab Routine Colostomy status ([facility]) 1 Occurrences starting 11/12/2024 until 11/12/2025[facility] SystemComment on above:1 Occurrences starting 11/12/2024 until 11/12/2025T Guidance for radiation treatment of Unspecified body regionCT SIM PLANNING RADIATION ONCOLOGY Radiology Routine Malignant neoplasm of prostate (HCC) Ordered: [address] [place] [address] Work Phone: Comment on above:Ordered: 11/29/2024UA DIP, URINE (POC)UA DIP, URINE (POC) Lab Routine Malignant neoplasm of prostate (HCC) Ordered: 12/13/2024[facility]:Ordered: 12/13/2024 Immunizations Immunization DateImmunizationNotesCare NsafizimYdwpvwhi80-88-7207KRIB-JbZ-7 (COVID-19) mRNA-1273 [employer] [facility] on above:Result Comment: 2024-09-06: [id number]-YzJ-0 (COVID-19) mRNA-1273 [employer] [facility] on above:Result Comment: 2024-09-06: [id number] Payers DatePayer CategoryPayerPolicy ID2018Medicaid [id number] 1998Medicare [id number] [id number] 1960 [id number] [id number] 2.16.840.1.216857.3.579.2.593 [id number] 2.16.840.1.389397.3.579.2.229072-08-2227Hdeakia [id number] 2.16.840.1.699639.3.57[id number] 2.16.840.1.781317.3.57[id number] 2.16.840.1.816282.3.57[id number] 2.16.840.1.458037.3.57[id number] 2.16.840.1.959485.3.57[id number] 2.16840.1.336892.3.57[id number] 2.16840.1.233439.3.57[id number] 2.840.1.485544.3.57[id number] 2.16840.1.237630.3.57[id number] 2.840.1.832933.3.57[id number] 2.840.1.880698.3.579.2.[id number] 2.16840.1.839399.3.579.[id number] 2.16840.1.487271.3.57[id number] 2.16.840.1.723065.3.57[id number] 2.16840.1.638147.3.57[id number] 2.16.840.1.521092.3.57[id number] 2.16.840.1.200322.3.57[id number] 2.16.840.1.097783.3.57[id number] 2.16.840.1.774253.3.57[id number] 2.16.840.1.744555.3.57[id number] 2.16.840.1.479649.3.57[id number] 2.16.840.1.238368.3.57[id number] 2.16.840.1.061369.3.57[id number] 2.16.840.1.989959.3.57[id number] 2.16.840.1.109480.3.57[id number] 2.16.840.1.342568.3.57[id number] 2.16.840.1.590149.3.57[id number] 2.16.840.1.383644.3.57[id number] 2.16.840.1.343988.3.57[id number] 2.16.840.1.913112.3.57[id number] 2.16.840.1.193029.3.579.2.727 Social History DateTypeDetailFacilityStart: 08-19-2023 End: 10-95-7786Eqkieoj smoking status NHISNever smoked tobaccoNOMS Healthcare Start: 08-19-2023 End: 29-83-7292Dszhlmf use and exposureSmokeless tobacco non-userProEliza Coffee Memorial Hospital Health SystemStart: 11-25-2023 End: 26-22-7817Yncuyczhd beverage intakeLifetime non-drinker (finding)[facility] HealthcareStart: 03-27-2023 End: 13-26-6001Mmnddpl of Social functionNOMS HealthcareStart: 03-27-2023 End: 08-81-1909Axpgiovjmgd, Afraid, Rape, and Kick questionnaire [HARK][facility]OMS HealthcareWithin the last year, have you been afraid of your partner or ex-partner?NoNOMS HealthcareDo you belong to any clubs or organizations such as holiness groups, unions, fraternal or athletic groups, or school groups?YesNOMS HealthcareAre you now , , , , never or living with a partner?DivorcedNOMS HealthcareHow often to you have a drink containing alcohol?NeverProEliza Coffee Memorial Hospital Health SystemStart: 17-07-4236Utb many standard drinks containing alcohol do you have on a typical day?Patient does not drinkNOMS HealthcareHow hard is it for you to pay for the very basics like food, housing, medical care, and heatingSomewhat hardNOMS HealthcareDo you feel stress - tense, restless, nervous, or anxious, or unable to sleep at night because yourmind is troubled all the time - these days [OSQ]Only a littleNOMS Healthcare(I/We) worried whether (my/our) food would run out before (I/we) got money to buy more.Never trueNOMS HealthcareStart: 02-20-1213Jqhzozv Comment caffeine: noneNOMS HealthcareStart: 97-20-0039K[facility] careNot on file [facility] Hospitaltart: 10-16-2023 End: 40-53-5195Hjmjiajhk beverage intakeEx-drinker (finding)[facility] SystemStart: 07-82-5579HtsAlul (finding)[facility]Mor[facility] SystemSexual [facility] Start: 76-97-1196Rlcdaxf smoking status NHISEx-smoker [facility] HospitalHistory of tobacco useCurrent smokerOhiohealth Shelby HospitalHistory of tobacco useCigarette SmokerWilson [facility] Hospital smoking status NHISUnknown if ever smokedMercy Health St. [facility] Work Phone: Start: 13-34-6634Rky Assigned At [facility]lower HospitalNEGATED: Highlighted rowStart: NINFHistory of tobacco use Passive smokerNOMS Healthcare Goals DatePatient GoalDesired Activity/StatePersonal health goalComment on above: Evaluation of progress towards goal: Functional Status McqrBdytkfhzohAodmnhAzgkuwbc54-14-6591Dxvdqozthi StatusN/AExecutive Urology of [facility] Clinical Notes 07-28-2023 to 02-15-2025 Note Date & TmssVajvVcpvmbto73-73-9075 NoteHNO ID: [id number] Author: ALLISON HART RN Service: ? Author Type: Registered Nurse Type: Progress Notes Filed: 02/23/2025 15:13 Note Text: AUA 15 Allison Hart RNRegency Hospital [facility]10-21-2025 NoteHNO ID: [id number] Author: Kwasi SANDOVAL MD Service: ? Author Type: Physician Type: Progress Notes Filed: 02/23/2025 15:13 Note Text: Radiation Oncology - Follow Up Note PATIENT NAME: Cipriano SPENCE DIAGNOSIS: Prostate adenocarcinoma, initial PSA 15.33, biopsy Archana score 3 + 4 = 7 (grade group 2), clinical stage T2a, N0, M0, stage IIB [T1-T2, N0, M0, PSA <20, GG 2] (AJCC 8th ed.), s/p biopsy. NCCN Risk Group: Unfavorable Intermediate Risk Group RADIATION SUMMARY: DATES OF TREATMENT: 12/08/24-01/17/25 AREA TREATED: Pelvis/ Prostate DELIVERED DOSE: PelvisProstate : 7,000 cGy in 28 fractions, 3 Parker, IMRT, 10MV with daily CBCT TOTAL: 7,000 cGy in 28 fractions ELAPSED TIME: 40 days. INTERVAL HISTORY: The patient presents for routine follow-up after recent completion of prostate radiation. He states he is doing fairly well. Denies any acute issues including dysuria hematuria or significant diarrhea. Energy level improving. PSA HISTORY: PSA (ng/mL) Date Value 02/08/2025 0.15 ALLERGIES Allergen Reactions Red Food Color (Bul* Other: See Comments Rectal bleeding per patient CALCIUM-VITAMIN D3 ORAL Take by mouth. amLODIPine (NORVASC) 10 mg tablet Take 10 mg by mouth once daily. docusate sodium (STOOL SOFTENER PO) Take by mouth. REVIEW OF SYSTEMS: D/N = 4-6/1-2 Hematuria: none Dysuria: none Incontinence: none Urgency: none Medications to aid urination: n Bowel movement frequency: 1/day Bowel movement quality: normal Blood per rectum: none PHYSICAL EXAM: BP 149/93 Pulse 92 Temp 36.1 ?C (96.9 ?F) Resp 18 Wt 79.7 kg (175 lb 11.3 oz) SpO2 97% KPS: 100 General Appearance: Alert and oriented. No acute distress. ASSESSMENT/PLAN: Prostate adenocarcinoma, initial PSA 15.33, biopsy Archana score 3 + 4 = 7 (grade group 2), clinical stage T2a, N0, M0, stage IIB [T1-T2, N0, M0, PSA <20, GG 2] (AJCC 8th ed.), s/p biopsy. NCCN Risk Group: Unfavorable Intermediate Risk Group Overall doing well after recent completion of radiation. He has also had ADT initiated due to unfavorable intermediate risk presentation. He has had good initial PSA response. No significant posttreatment problems. Recommend continued surveillance with PSA in 6 months. Signed by: Kwasi Sandoval MD cc: Yissel Arevalo, FILM SORTER ([facility]) [address] [place] [address] [address] LawrenceRegency Hospital [facility]09-22-2025 NoteHNO ID: [id number] Author: CHRISTOPHER CASTANEDA MD Service: ? Author Type: Physician Type: Progress Notes Filed: 01/31/2025 22:41 Note Text: Radiation Oncology - On Treatment Review (OTR) Note PATIENT NAME: Cipriano Arzate PATIENT DIAGNOSIS: Prostate adenocarcinoma, initial PSA 15.33, biopsy Willard score 3 + 4 = 7 (grade group 2), clinical stage T2a, N0, M0, stage IIB [T1-T2, N0, M0, PSA <20, GG 2] (AJCC 8th ed.), s/p biopsy. NCCN Risk Group: Unfavorable Intermediate Risk Group COURSE: definitive Current dose: 7000 cGy in 28 fx Planned dose: 7000 cGy in 28 fx SUBJECTIVE: Tolerating XRT well and does note some mild burning/discomfort urination with no nocturia. He reports regular bowel movements without diarrhea or nausea and does endorse fatigue with stable appetite and hydration and weight. PHYSICAL EXAM: KPS: 90 General Appearance: Alert and oriented. No acute distress. IMAGING/LAB RESULTS: None TOXICITY ASSESSMENT (CTC v4.0): Fatigue:grade 1 - Fatigue relieved by rest Radiation Dermatitis: grade 0 - No symptoms Diarrhea:grade 0 - No symptoms Proctitis: grade 0 - No symptoms Urinary frequency: grade 0 - No symptoms Dysuria: grade 1 - Microscopic hematuria; minimal increase in frequency, urgency, dysuria, or nocturia; new onset of incontinence Urinary incontinence: grade 0 (No symptoms) Urinary retention: grade 0 - No symptoms Treatment chart checked: Yes Patient treatment site reviewed and verified:Yes Port films reviewed and current:Yes Medications started: None ASSESSMENT/PLAN: Clinically stable. Side effects are within expected parameters. The patient has completed radiotherapy as planned. Acute and delayed side effects were reviewed. Christopher Castaneda [facility]09-22-2025 NoteHNO ID: [id number] Author: Kwasi SANDOVAL MD Service: ? Author Type: Physician Type: Progress Notes Filed: 01/26/2025 16:29 Note Text: [facility] Radiation Oncology Department RADIATION ONCOLOGY - COMPLETION NOTE PATIENT: CIPRIANO ARZATEDOB: 1960 DATES OF TREATMENT: 12/08/24-01/17/25 DIAGNOSIS: Prostate adenocarcinoma, initial PSA 15.33, biopsy Archana score 3 + 4 = 7 (grade group 2), clinical stage T2a, N0, M0, stage IIB [T1-T2, N0, M0, PSA <20, GG 2] (AJCC 8th ed.), s/p biopsy. NCCN Risk Group: Unfavorable Intermediate Risk Group AREA TREATED: Pelvis/ Prostate DELIVERED DOSE: PelvisProstate : 7,000 cGy in 28 fractions, 3 Parker, IMRT, 10MV with daily CBCT TOTAL: 7,000 cGy in 28 fractions ELAPSED TIME: 40 days. CLINICAL SUMMARY: The patient tolerated radiation with mild radiation related cystitis and diarrhea. No other issues. The patient was able to complete treatment as intended without break interruption or modification of prescription plan. The disease response will be assessed in clinic. The patient will be seen again in 2 weeks for post radiation follow-up. Staff Physician Du Sandoval M.D. / TESSA 54:29 PM Electronically Signed cc: GREGORIO Conner Dr.[facility]09-16-2025 Telephone encounter Note* Telephone Encounter - Allison Hart RN - 01/11/2025 10:59 AM EDT Please sign pended PSA for 4 week post Tx PSA and f/u. Allison Hart RN [facility]09-16-2025 Miscellaneous Notes* Telephone Encounter - Allison Hart RN - 01/11/2025 10:59 AM EDT Please sign pended PSA for 4 week post Tx PSA and f/u. Allison Hart RN documented in this encounterOhiohealth Shelby Hospital09-15-2025 NoteHNO ID: [id number] Author: Kwasi SANDOVAL MD Service: ? Author Type: Physician Type: Progress Notes Filed: 01/10/2025 14:50 Note Text: Radiation Oncology - On Treatment Review (OTR) Note PATIENT NAME: Cipriano SPENCE DIAGNOSIS: Prostate adenocarcinoma, initial PSA 15.33, biopsy Willard score 3 + 4 = 7 (grade group 2), clinical stage T2a, N0, M0, stage IIB [T1-T2, N0, M0, PSA <20, GG 2] (AJCC 8th ed.), s/p biopsy. NCCN Risk Group: Unfavorable Intermediate Risk Group COURSE: definitive Current dose: 5750 cGy in 23 fx Planned dose: 7000 cGy in 28 fx SUBJECTIVE: No new issues or concerns. PHYSICAL EXAM: 01/10/25 1402 BP: 133/89 Pulse: 101 Resp: 18 Temp: 36.4 ?C (97.6 ?F) SpO2: 96% Weight: 70.6 kg (155 lb 10.3 oz) KPS: 100 General Appearance: Alert and oriented. No acute distress. IMAGING/LAB RESULTS: Hemoglobin (g/dL) Date Value 12/16/2024 15.9 Hematocrit (%) Date Value 12/16/2024 46.6 WBC (k/uL) Date Value 12/16/2024 6.18 Platelet Count (k/uL) Date Value 12/16/2024 232 TOXICITY ASSESSMENT (CTC v4.0): Fatigue:grade 1 Radiation Dermatitis: grade 0 - No symptoms Diarrhea:grade 1 Proctitis: grade 0 - No symptoms Urinary frequency: grade 0 - No symptoms Dysuria: grade 1 Urinary incontinence: grade 0 (No symptoms) Urinary retention: grade 0 - No symptoms Treatment chart checked: Yes Patient treatment site reviewed and verified:Yes Port films reviewed and current:Yes Medications started: None ASSESSMENT/PLAN: Patient doing well. Chart and films reviewed. Continue treatment. Follow-up care discussed completion of treatment. Kwasi Sandoval [facility]09-15-2025 History of Present illness Narrative* Kwasi Sandoval MD - 01/10/2025 1:50 PM EDT Radiation Oncology - On Treatment Review (OTR) Note PATIENT NAME: Cipriano SPENCE DIAGNOSIS: Prostate adenocarcinoma, initial PSA 15.33, biopsy Willard score 3 + 4 = 7 (grade group 2), clinical stage T2a, N0, M0, stage IIB [T1-T2, N0, M0, PSA <20, GG 2] (AJCC 8th ed.), s/p biopsy. NCCN Risk Group: Unfavorable Intermediate Risk Group COURSE: definitive Current dose: 5750 cGy in 23 fx Planned dose: 7000 cGy in 28 fx SUBJECTIVE: No new issues or concerns. PHYSICAL EXAM: 01/10/25 1402 BP: 133/89 Pulse: 101 Resp: 18 Temp: 36.4 C (97.6 F) SpO2: 96% Weight: 70.6 kg (155 lb 10.3 oz) KPS: 100 General Appearance: Alert and oriented. No acute distress. IMAGING/LAB RESULTS: Hemoglobin (g/dL) Date Value 12/16/2024 15.9 Hematocrit (%) Date Value 12/16/2024 46.6 WBC (k/uL) Date Value 12/16/2024 6.18 Platelet Count (k/uL) Date Value 12/16/2024 232 TOXICITY ASSESSMENT (CTC v4.0): Fatigue:grade 1 Radiation Dermatitis: grade 0 - No symptoms Diarrhea:grade 1 Proctitis: grade 0 - No symptoms Urinary frequency: grade 0 - No symptoms Dysuria: grade 1 Urinary incontinence: grade 0 (No symptoms) Urinary retention: grade 0 - No symptoms Treatment chart checked: Yes Patient treatment site reviewed and verified:Yes Port films reviewed and current:Yes Medications started: None ASSESSMENT/PLAN: Patient doing well. Chart and films reviewed. Continue treatment. Follow-up care discussed completion of treatment. Kwasi Sandoval MD documented in this encounterOhiohealth Shelby Hospital09-08-2025 NoteHNO ID: [id number] Author: Kwasi SANDOVAL MD Service: ? Author Type: Physician Type: Progress Notes Filed: 01/03/2025 15:06 Note Text: Radiation Oncology - On Treatment Review (OTR) Note PATIENT NAME: Cipriano Arzate PATIENT DIAGNOSIS: Prostate adenocarcinoma, initial PSA 15.33, biopsy Archana score 3 + 4 = 7 (grade group 2), clinical stage T2a, N0, M0, stage IIB [T1-T2, N0, M0, PSA <20, GG 2] (AJCC 8th ed.), s/p biopsy. NCCN Risk Group: Unfavorable Intermediate Risk Group COURSE: definitive Current dose: 4500 cGy in 18 fx Planned dose: 7000 cGy in 28 fx SUBJECTIVE: Persistent lower abdominal pain he relates to his known hernias. Denies bowel change. Denies change in bowel consistency from stoma. Passing occasional mucousy discharge from rectum without bleeding PHYSICAL EXAM: 01/03/25 1406 BP: 149/91 Pulse: 86 Resp: 16 Temp: 36.3 ?C (97.3 ?F) SpO2: 98% Weight: 70.5 kg (155 lb 6.8 oz) KPS: 100 General Appearance: Alert and oriented. No acute distress. IMAGING/LAB RESULTS: Hemoglobin (g/dL) Date Value 12/16/2024 15.9 Hematocrit (%) Date Value 12/16/2024 46.6 WBC (k/uL) Date Value 12/16/2024 6.18 Platelet Count (k/uL) Date Value 12/16/2024 232 TOXICITY ASSESSMENT (CTC v4.0): Fatigue:grade 1 Radiation Dermatitis: grade 0 - No symptoms Diarrhea:grade 1 Proctitis: grade 0 - No symptoms Urinary frequency: grade 0 - No symptoms Dysuria: grade 1 Urinary incontinence: grade 0 (No symptoms) Urinary retention: grade 0 - No symptoms Treatment chart checked: Yes Patient treatment site reviewed and verified:Yes Port films reviewed and current:Yes Medications started: None ASSESSMENT/PLAN: Patient doing well. Chart and films reviewed. Continue treatment. Kwasi Sandoval, [facility]09-08-2025 History of Present illness Narrative* Kwasi Sandoval MD - 01/03/2025 2:04 PM EDT Radiation Oncology - On Treatment Review (OTR) Note PATIENT NAME: Cipriano SPENCE DIAGNOSIS: Prostate adenocarcinoma, initial PSA 15.33, biopsy Willard score 3 + 4 = 7 (grade group 2), clinical stage T2a, N0, M0, stage IIB [T1-T2, N0, M0, PSA <20, GG 2] (AJCC 8th ed.), s/p biopsy. NCCN Risk Group: Unfavorable Intermediate Risk Group COURSE: definitive Current dose: 4500 cGy in 18 fx Planned dose: 7000 cGy in 28 fx SUBJECTIVE: Persistent lower abdominal pain he relates to his known hernias. Denies bowel change. Denies change in bowel consistency from stoma. Passing occasional mucousy discharge from rectum without bleeding PHYSICAL EXAM: 01/03/25 1406 BP: 149/91 Pulse: 86 Resp: 16 Temp: 36.3 C (97.3 F) SpO2: 98% Weight: 70.5 kg (155 lb 6.8 oz) KPS: 100 General Appearance: Alert and oriented. No acute distress. IMAGING/LAB RESULTS: Hemoglobin (g/dL) Date Value 12/16/2024 15.9 Hematocrit (%) Date Value 12/16/2024 46.6 WBC (k/uL) Date Value 12/16/2024 6.18 Platelet Count (k/uL) Date Value 12/16/2024 232 TOXICITY ASSESSMENT (CTC v4.0): Fatigue:grade 1 Radiation Dermatitis: grade 0 - No symptoms Diarrhea:grade 1 Proctitis: grade 0 - No symptoms Urinary frequency: grade 0 - No symptoms Dysuria: grade 1 Urinary incontinence: grade 0 (No symptoms) Urinary retention: grade 0 - No symptoms Treatment chart checked: Yes Patient treatment site reviewed and verified:Yes Port films reviewed and current:Yes Medications started: None ASSESSMENT/PLAN: Patient doing well. Chart and films reviewed. Continue treatment. Kwasi Sandoval MD documented in this encounterOhiohealth [facility] Hospital09-02-2025 Telephone encounter Note * Telephone Encounter - Radha Serrano RN - 12/28/2024 2:15 PM EDT Patient notified today of the need for repeat CT scan prior to scheduling appt with Dr. Boss. Radha Serrano RN [facility]09-02-2025 Miscellaneous Notes* Telephone Encounter - Radha Serrano RN - 12/28/2024 2:15 PM EDT Patient notified today of the need for repeat CT scan prior to scheduling appt with Dr. Boss. Radha Serrano RN * Telephone Encounter - Radha Serrano RN - 12/28/2024 1:17 PM EDT I called and spoke to Suze at Dr. Boss's office and she said their office spoke with Cipriano in October2024. Suze said Cipriano was notified that he will need a repeat CT scan prior to scheduling with Dr. Boss and patient said it will have to be after his radiation treatment is completed. 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 I asked when Cipriano should be concerned and she said if he passes blood per rectum. Cipriano will need to contact their office after he has the CT scan. Thanks Radha Serrano RN * Telephone Encounter - Radha Serrano RN - 12/24/2024 3:15 PM EDT I attempted to call Dr. Abdirashid Boss per Dr. Sandoval's request but there was no answer. Phone number:[phone]. Thanks Radha Serrano RN Message Received: Yesterday Kwasi Sandoval MD sent to [facility]; Allison Catherine Patient needs follow-up with his reverberatory skimmer/general surgeon regarding future colostomy reversal and concern regarding passing material from his rectum. documented in this encounterOhiohealth Shelby Hospital09-02-2025 NoteHNO ID: [id number] Author: Kwasi SANDOVAL MD Service: ? Author Type: Physician Type: Progress Notes Filed: 12/28/2024 14:15 Note Text: Radiation Oncology - On Treatment Review (OTR) Note PATIENT NAME: Cipriano Arzate PATIENT DIAGNOSIS: Prostate adenocarcinoma, initial PSA 15.33, biopsy Archana score 3 + 4 = 7 (grade group 2), clinical stage T2a, N0, M0, stage IIB [T1-T2, N0, M0, PSA <20, GG 2] (AJCC 8th ed.), s/p biopsy. NCCN Risk Group: Unfavorable Intermediate Risk Group COURSE: definitive Current dose: 3500 cGy in 14 fx Planned dose: 7000 cGy in 28 fx SUBJECTIVE: No significant changes. Denies fever or abdominal pain. PHYSICAL EXAM: 12/28/24 1351 BP: 148/89 Pulse: 90 Resp: 18 SpO2: 96% Weight: 70.3 kg (154 lb 15.7 oz) KPS: 100 General Appearance: Alert and oriented. No acute distress. IMAGING/LAB RESULTS: Hemoglobin (g/dL) Date Value 12/16/2024 15.9 Hematocrit (%) Date Value 12/16/2024 46.6 WBC (k/uL) Date Value 12/16/2024 6.18 Platelet Count (k/uL) Date Value 12/16/2024 232 TOXICITY ASSESSMENT (CTC v4.0): Fatigue:grade 1 Radiation Dermatitis: grade 0 - No symptoms Diarrhea:grade 1 Proctitis: grade 0 - No symptoms Urinary frequency: grade 0 - No symptoms Dysuria: grade 1 Urinary incontinence: grade 0 (No symptoms) Urinary retention: grade 0 - No symptoms Treatment chart checked: Yes Patient treatment site reviewed and verified:Yes Port films reviewed and current:Yes Medications started: None ASSESSMENT/PLAN: Patient doing well. Chart and films reviewed. Continue treatment. Kwasi Sandoval, [facility]09-02-2025 History of Present illness Narrative* Kwasi Sandoval MD - 12/28/2024 1:50 PM EDT Radiation Oncology - On Treatment Review (OTR) Note PATIENT NAME: Cipriano SPENCE DIAGNOSIS: Prostate adenocarcinoma, initial PSA 15.33, biopsy Willard score 3 + 4 = 7 (grade group 2), clinical stage T2a, N0, M0, stage IIB [T1-T2, N0, M0, PSA <20, GG 2] (AJCC 8th ed.), s/p biopsy. NCCN Risk Group: Unfavorable Intermediate Risk Group COURSE: definitive Current dose: 3500 cGy in 14 fx Planned dose: 7000 cGy in 28 fx SUBJECTIVE: No significant changes. Denies fever or abdominal pain. PHYSICAL EXAM: 12/28/24 1351 BP: 148/89 Pulse: 90 Resp: 18 SpO2: 96% Weight: 70.3 kg (154 lb 15.7 oz) KPS: 100 General Appearance: Alert and oriented. No acute distress. IMAGING/LAB RESULTS: Hemoglobin (g/dL) Date Value 12/16/2024 15.9 Hematocrit (%) Date Value 12/16/2024 46.6 WBC (k/uL) Date Value 12/16/2024 6.18 Platelet Count (k/uL) Date Value 12/16/2024 232 TOXICITY ASSESSMENT (CTC v4.0): Fatigue:grade 1 Radiation Dermatitis: grade 0 - No symptoms Diarrhea:grade 1 Proctitis: grade 0 - No symptoms Urinary frequency: grade 0 - No symptoms Dysuria: grade 1 Urinary incontinence: grade 0 (No symptoms) Urinary retention: grade 0 - No symptoms Treatment chart checked: Yes Patient treatment site reviewed and verified:Yes Port films reviewed and current:Yes Medications started: None ASSESSMENT/PLAN: Patient doing well. Chart and films reviewed. Continue treatment. Kwasi Sandoval MD [facility] Telephone encounter Note * Telephone Encounter - Radha Serrano RN - 12/28/2024 1:17 PM EDT I called and spoke to Suze at Dr. Boss's office and she said their office spoke with Cipriano in October2024. Suze said Cipriano was notified that he will need a repeat CT scan prior to scheduling with Dr. Boss and patient said it will have to be after his radiation treatment is completed. 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 I asked when Cipriano should be concerned and she said if he passes blood per rectum. Cipriano will need to contact their office after he has the CT scan. Jerson Serrano RN [facility]08-29-2025 Telephone encounter Note* Telephone Encounter - Radha Serrano RN - 12/24/2024 3:15 PM EDT I attempted to call Dr. Abdirashid Boss per Dr. Engeler's request but there was no answer. Phone number:[phone]. Thanks Radha Serrano RN Message Received: Yesterday Kwasi Sandoval MD sent to [facility]; Allison Catherine Patient needs follow-up with his reverberatory skimmer/general surgeon regarding future colostomy reversal and concern regarding passing material from his rectum. [facility]08-28-[facility] History of Present illness Narrative* Kwasi Sandoval MD - 12/23/2024 1:21 PM EDT Radiation Oncology - On Treatment Review (OTR) Note PATIENT NAME: Cipriano SPENCE DIAGNOSIS: Prostate adenocarcinoma, initial PSA 15.33, biopsy Archana score 3 + 4 = 7 (grade group 2), clinical stage T2a, N0, M0, stage IIB [T1-T2, N0, M0, PSA <20, GG 2] (AJCC 8th ed.), s/p biopsy. NCCN Risk Group: Unfavorable Intermediate Risk Group COURSE: definitive Current dose: 3000 cGy in 12 fx Planned dose: 7000 cGy in 28 fx SUBJECTIVE: Patient seen today due to concern of passing small semisolid greenish discharge/cord turd No associated pain. No bleeding. No fever. PHYSICAL EXAM: KPS: 100 General Appearance: Alert and oriented. No acute distress. IMAGING/LAB RESULTS: Hemoglobin (g/dL) Date Value 12/16/2024 15.9 Hematocrit (%) Date Value 12/16/2024 46.6 WBC (k/uL) Date Value 12/16/2024 6.18 Platelet Count (k/uL) Date Value 12/16/2024 232 TOXICITY ASSESSMENT (CTC v4.0): Fatigue:grade 0 - No symptoms Radiation Dermatitis: grade 0 - No symptoms Diarrhea:grade 1 Proctitis: grade 0 - No symptoms Urinary frequency: grade 0 - No symptoms Dysuria: grade 1 Urinary incontinence: grade 0 (No symptoms) Urinary retention: grade 0 - No symptoms Treatment chart checked: Yes Patient treatment site reviewed and verified:Yes Port films reviewed and current:Yes Medications started: None ASSESSMENT/PLAN: Patient doing well. Patient did pass possible retained mucus from rectum. If this continues or increases in volume we will need to see his reverberatory skimmer otherwise recommend thathe get back and have follow-up with his reverberatory skimmer regarding this and the issue regarding future colostomy reversal. Kwasi Sandoval MD documented in this encounterOhio[facility]08-28-2025 NoteHNO ID: [id number] Author: Kwasi SANDOVAL MD Service: ? Author Type: Physician Type: Progress Notes Filed: 12/23/2024 15:23 Note Text: Radiation Oncology - On Treatment Review (OTR) Note PATIENT NAME: Cipriano Arzate PATIENT DIAGNOSIS: Prostate adenocarcinoma, initial PSA 15.33, biopsy Archana score 3 + 4 = 7 (grade group 2), clinical stage T2a, N0, M0, stage IIB [T1-T2, N0, M0, PSA <20, GG 2] (AJCC 8th ed.), s/p biopsy. NCCN Risk Group: Unfavorable Intermediate Risk Group COURSE: definitive Current dose: 3000 cGy in 12 fx Planned dose: 7000 cGy in 28 fx SUBJECTIVE: Patient seen today due to concern of passing small semisolid greenish discharge/cord turd No associated pain. No bleeding. No fever. PHYSICAL EXAM: KPS: 100 General Appearance: Alert and oriented. No acute distress. IMAGING/LAB RESULTS: Hemoglobin (g/dL) Date Value 12/16/2024 15.9 Hematocrit (%) Date Value 12/16/2024 46.6 WBC (k/uL) Date Value 12/16/2024 6.18 Platelet Count (k/uL) Date Value 12/16/2024 232 TOXICITY ASSESSMENT (CTC v4.0): Fatigue:grade 0 - No symptoms Radiation Dermatitis: grade 0 - No symptoms Diarrhea:grade 1 Proctitis: grade 0 - No symptoms Urinary frequency: grade 0 - No symptoms Dysuria: grade 1 Urinary incontinence: grade 0 (No symptoms) Urinary retention: grade 0 - No symptoms Treatment chart checked: Yes Patient treatment site reviewed and verified:Yes Port films reviewed and current:Yes Medications started: None ASSESSMENT/PLAN: Patient doing well. Patient did pass possible retained mucus from rectum. If this continues or increases in volume we will need to see his reverberatory skimmer otherwise recommend that he get back and have follow-up with his reverberatory skimmer regarding this and the issue regarding future colostomy reversal. Kwasi Sandoval, [facility]08-25-2025 NoteHNO ID: [id number] Author: Kwasi SANDOVAL MD Service: ? Author Type: Physician Type: Progress Notes Filed: 12/20/2024 14:42 Note Text: Radiation Oncology - On Treatment Review (OTR) Note PATIENT NAME: Cipriano SPENCE DIAGNOSIS: Prostate adenocarcinoma, initial PSA 15.33, biopsy Willard score 3 + 4 = 7 (grade group 2), clinical stage T2a, N0, M0, stage IIB [T1-T2, N0, M0, PSA <20, GG 2] (AJCC 8th ed.), s/p biopsy. NCCN Risk Group: Unfavorable Intermediate Risk Group COURSE: definitive Current dose: 2250 cGy in 9 fx Planned dose: 7000 cGy in 28 fx SUBJECTIVE: Some diarrhea over the weekend. No other issues. PHYSICAL EXAM: 12/20/24 1342 BP: 169/79 Pulse: 86 Resp: 16 Temp: 36.4 ?C (97.5 ?F) SpO2: 96% Weight: 73.3 kg (161 lb 9.6 oz) KPS: 100 General Appearance: Alert and oriented. No acute distress. IMAGING/LAB RESULTS: Hemoglobin (g/dL) Date Value 12/16/2024 15.9 Hematocrit (%) Date Value 12/16/2024 46.6 WBC (k/uL) Date Value 12/16/2024 6.18 Platelet Count (k/uL) Date Value 12/16/2024 232 TOXICITY ASSESSMENT (CTC v4.0): Fatigue:grade 0 - No symptoms Radiation Dermatitis: grade 0 - No symptoms Diarrhea:grade 1 Proctitis: grade 0 - No symptoms Urinary frequency: grade 0 - No symptoms Dysuria: grade 1 Urinary incontinence: grade 0 (No symptoms) Urinary retention: grade 0 - No symptoms Treatment chart checked: Yes Patient treatment site reviewed and verified:Yes Port films reviewed and current:Yes Medications started: None ASSESSMENT/PLAN: Patient doing well. Having mild diarrhea, patient on stool softener discussed backing off on this. Chart and imaging reviewed. Continue radiation as outlined. Kwasi Sandoval, [facility]08-25-2025 History of Present illness Narrative* Kwasi Sandoval MD - 12/20/2024 1:43 PM EDT Radiation Oncology - On Treatment Review (OTR) Note PATIENT NAME: Cipriano SPENCE DIAGNOSIS: Prostate adenocarcinoma, initial PSA 15.33, biopsy Archana score 3 + 4 = 7 (grade group 2), clinical stage T2a, N0, M0, stage IIB [T1-T2, N0, M0, PSA <20, GG 2] (AJCC 8th ed.), s/p biopsy. NCCN Risk Group: Unfavorable Intermediate Risk Group COURSE: definitive Current dose: 2250 cGy in 9 fx Planned dose: 7000 cGy in 28 fx SUBJECTIVE: Some diarrhea over the weekend. No other issues. PHYSICAL EXAM: 12/20/24 1342 BP: 169/79 Pulse: 86 Resp: 16 Temp: 36.4 C (97.5 F) SpO2: 96% Weight: 73.3 kg (161 lb 9.6 oz) KPS: 100 General Appearance: Alert and oriented. No acute distress. IMAGING/LAB RESULTS: Hemoglobin (g/dL) Date Value 12/16/2024 15.9 Hematocrit (%) Date Value 12/16/2024 46.6 WBC (k/uL) Date Value 12/16/2024 6.18 Platelet Count (k/uL) Date Value 12/16/2024 232 TOXICITY ASSESSMENT (CTC v4.0): Fatigue:grade 0 - No symptoms Radiation Dermatitis: grade 0 - No symptoms Diarrhea:grade 1 Proctitis: grade 0 - No symptoms Urinary frequency: grade 0 - No symptoms Dysuria: grade 1 Urinary incontinence: grade 0 (No symptoms) Urinary retention: grade 0 - No symptoms Treatment chart checked: Yes Patient treatment site reviewed and verified:Yes Port films reviewed and current:Yes Medications started: None ASSESSMENT/PLAN: Patient doing well. Having mild diarrhea, patient on stool softener discussed backing off on this. Chart and imaging reviewed. Continue radiation as outlined. Kwasi Sandoval MD documented in [facility] encounterOhio[facility]08-[facility]-2025 NoteHNO ID: [id number] Author: NIESHA BETTENCOURT RN Service: ? Author Type: Registered Nurse Type: Progress Notes Filed: 12/16/2024 13:46 Note Text: Cipriano Arzate presents in office today for: Lab Draw only . Ordering Provider: Du Sandoval M.D. Test (s) ordered: CBC Method for obtaining blood: Phlebotomy was performed, accessing right antecubital vein. Needle removed intact. Dressing secured. Patient denies discomfort, dizziness, light-headedness or weakness and left the department without assist. [facility]ies[facility] Bettencourt RN[facility] History of Present illness Narrative* Niesha Bettencourt RN - 12/16/2024 1:45 PM EDT Cipriano Arzate presents in office today for: Lab Draw only . Ordering Provider: Du Sandoval M.D. Test (s) ordered: CBC Method for obtaining blood: Phlebotomy was performed, accessing right antecubital vein. Needle removed intact. Dressing secured. Patient denies discomfort, dizziness, light-headedness or weakness and left the department without assist. Niesha Bettencourt RN documented in this encounterOhio[facility]08-18-2025 NoteHNO ID: [id number] Author: Kwasi SANDOVAL MD Service: ? Author Type: Physician Type: Progress Notes Filed: 12/13/2024 14:22 Note Text: Radiation Oncology - On Treatment Review (OTR) Note PATIENT NAME: Cipriano Arzate PATIENT DIAGNOSIS: Prostate adenocarcinoma, initial PSA 15.33, biopsy Archana score 3 + 4 = 7 (grade group 2), clinical stage T2a, N0, M0, stage IIB [T1-T2, N0, M0, PSA <20, GG 2] (AJCC 8th ed.), s/p biopsy. NCCN Risk Group: Unfavorable Intermediate Risk Group COURSE: definitive Current dose: 1000 cGy in 4 fx Planned dose: 7000 cGy in 28 fx SUBJECTIVE: Having some dysuria. No fever. PHYSICAL EXAM: 12/13/24 1412 BP: 151/103 Pulse: 91 Resp: 16 Temp: 36.4 ?C (97.6 ?F) SpO2: 97% Weight: 77.9 kg (171 lb 11.8 oz) KPS: 100 General Appearance: Alert and oriented. No acute distress. IMAGING/LAB RESULTS: None TOXICITY ASSESSMENT (CTC v4.0): Fatigue:grade 0 - No symptoms Radiation Dermatitis: grade 0 - No symptoms Diarrhea:grade 0 - No symptoms Proctitis: grade 0 - No symptoms Urinary frequency: grade 0 - No symptoms Dysuria: grade 1 Urinary incontinence: grade 0 (No symptoms) Urinary retention: grade 0 - No symptoms Treatment chart checked: Yes Patient treatment site reviewed and verified:Yes Port films reviewed and current:Yes Medications started: None ASSESSMENT/PLAN: Patient doing well. Having some dysuria, UA ordered. Chart and imaging reviewed. Continue radiation as outlined. Kwasi Sandoval, [facility]08-18-2025 History of Present illness Narrative* Kwasi Sandoval MD - 12/13/2024 2:14 PM EDT Radiation Oncology - On Treatment Review (OTR) Note PATIENT NAME: Cipriano SPENCE DIAGNOSIS: Prostate adenocarcinoma, initial PSA 15.33, biopsy Willard score 3 + 4 = 7 (grade group 2), clinical stage T2a, N0, M0, stage IIB [T1-T2, N0, M0, PSA <20, GG 2] (AJCC 8th ed.), s/p biopsy. NCCN Risk Group: Unfavorable Intermediate Risk Group COURSE: definitive Current dose: 1000 cGy in 4 fx Planned dose: 7000 cGy in 28 fx SUBJECTIVE: Having some dysuria. No fever. PHYSICAL EXAM: 12/13/24 1412 BP: 151/103 Pulse: 91 Resp: 16 Temp: 36.4 C (97.6 F) SpO2: 97% Weight: 77.9 kg (171 lb 11.8 oz) KPS: 100 General Appearance: Alert and oriented. No acute distress. IMAGING/LAB RESULTS: None TOXICITY ASSESSMENT (CTC v4.0): Fatigue:grade 0 - No symptoms Radiation Dermatitis: grade 0 - No symptoms Diarrhea:grade 0 - No symptoms Proctitis: grade 0 - No symptoms Urinary frequency: grade 0 - No symptoms Dysuria: grade 1 Urinary incontinence: grade 0 (No symptoms) Urinary retention: grade 0 - No symptoms Treatment chart checked: Yes Patient treatment site reviewed and verified:Yes Port films reviewed and current:Yes Medications started: None ASSESSMENT/PLAN: Patient doing well. Having some dysuria, UA ordered. Chart and imaging reviewed. Continue radiation as outlined. Kwasi Sandoval MD documented in this encounterOhio[facility]08-13-2025 NoteHNO ID: [id number] Author: Kwasi SANDOVAL MD Service: ? Author Type: Physician Type: Progress Notes Filed: 12/13/2024 14:06 Note Text: Radiation Oncology - On Treatment Review (OTR) Note PATIENT NAME: Cipriano Arzate PATIENT DIAGNOSIS: Prostate adenocarcinoma, initial PSA 15.33, biopsy Willard score 3 + 4 = 7 (grade group 2), clinical stage T2a, N0, M0, stage IIB [T1-T2, N0, M0, PSA <20, GG 2] (AJCC 8th ed.), s/p biopsy. NCCN Risk Group: Unfavorable Intermediate Risk Group COURSE: definitive Current dose: 250 cGy in 1 fx Planned dose: 7000 cGy in 28 fx SUBJECTIVE: Here to start radiation, doing well. PHYSICAL EXAM: KPS: 100 General Appearance: Alert and oriented. No acute distress. IMAGING/LAB RESULTS: None TOXICITY ASSESSMENT (CTC v4.0): Fatigue:grade 0 - No symptoms Radiation Dermatitis: grade 0 - No symptoms Diarrhea:grade 0 - No symptoms Proctitis: grade 0 - No symptoms Urinary frequency: grade 0 - No symptoms Dysuria: grade 0 - No symptoms Urinary incontinence: grade 0 (No symptoms) Urinary retention: grade 0 - No symptoms Treatment chart checked: Yes Patient treatment site reviewed and verified:Yes Port films reviewed and current:Yes Medications started: None ASSESSMENT/PLAN: Patient starting radiation today. Plan of care and expectations again reviewed. Plan, MU calculations and qa report reviewed. Initial imaging including cone beam ct and verification reviewed and approved. First treatment given. Continue radiation as prescribed. Kwasi Sandoval, [facility]08-13-2025 History of Present illness Narrative* Kwasi Sandoval MD - 12/08/2024 2:05 PM EDT Radiation Oncology - On Treatment Review (OTR) Note PATIENT NAME: Cipriano Arzate PATIENT DIAGNOSIS: Prostate adenocarcinoma, initial PSA 15.33, biopsy Willard score 3 + 4 = 7 (grade group 2), clinical stage T2a, N0, M0, stage IIB [T1-T2, N0, M0, PSA <20, GG 2] (AJCC 8th ed.), s/p biopsy. NCCN Risk Group: Unfavorable Intermediate Risk Group COURSE: definitive Current dose: 250 cGy in 1 fx Planned dose: 7000 cGy in 28 fx SUBJECTIVE: Here to start radiation, doing well. PHYSICAL EXAM: KPS: 100 General Appearance: Alert and oriented. No acute distress. IMAGING/LAB RESULTS: None TOXICITY ASSESSMENT (CTC v4.0): Fatigue:grade 0 - No symptoms Radiation Dermatitis: grade 0 - No symptoms Diarrhea:grade 0 - No symptoms Proctitis: grade 0 - No symptoms Urinary frequency: grade 0 - No symptoms Dysuria: grade 0 - No symptoms Urinary incontinence: grade 0 (No symptoms) Urinary retention: grade 0 - No symptoms Treatment chart checked: Yes Patient treatment site reviewed and verified:Yes Port films reviewed and current:Yes Medications started: None ASSESSMENT/PLAN: Patient starting radiation today. Plan of care and expectations again reviewed. Plan, MU calculations and qa report reviewed. Initial imaging including cone beam ct and verification reviewed and approved. First treatment given. Continue radiation as prescribed. Kwasi Sandoval MD documented in this encounterOhio[facility]08-04-2025 NoteHNO ID: [id number] Author: Kwasi SANDOVAL MD Service: ? Author Type: Physician Type: Progress Notes Filed: 11/29/2024 15:37 Note Text: [facility]08-04-2025 History of Present illness Narrative* Kwasi Sandoval MD - 11/29/2024 3:36 PM EDT sim documented in this encounterOhio[facility]08-04-2025 History of Present illness Narrative* Kwasi Sandoval MD - 11/29/2024 12:00 AM EDT CIPRIANO ARZATE [id number] 11/29/2024 [facility] Radiation Oncology Department SIMULATION NOTE DATE OF SIMULATION: 11/29/2024 THERAPIST: Shauna Cortes MACHINE: [employer] DIAGNOSIS: Malignant neoplasm of [id number] AREA: PELVIS CONTRAST: None <Select> Consent in Epic: Yes PATIENT POSITION: Supine. FIXATION DEVICE: In order to achieve accurate and reproducible treatments, the patient is immobilized with THE ORFIT AIO SYSTEM. A time-out was conducted and recorded by the therapist. CT scan was completed for target localization and planning. Field arrangement will be determined after plan has been completed. The patient is scheduled for a verification simulation on the treatment machine to ensure proper set-up and field arrangement is correct prior to the first treatment of primary and boost parker if applicable. Patient education will be completed per nursing. Electronically Signed Du Sandoval M.D. / ZAFAR 55:10 PM documented in this encounterOhio[facility]08-04-2025 History of Present illness Narrative* Kwasi Sandoval MD - 11/29/2024 12:00 AM EDT CIPRIANO ARZATE [id number] 11/29/2024 [facility] [place] [facility] - Department of Radiation Oncology Treatment Planning Note For reasons stated in the consult note, Cipriano Arzate is a candidate for radiation therapy. Based on review and interpretation of the relevant diagnostic studies together with the exam findings, Cipriano Arzate was simulated on 11/29/2024 at which time the target volume and/or requisite parker were delineated, as indicated in the simulation note, to be treated according to the prescription. The treatment target and organs at risk were contoured on the simulation scan using the fused MRI /. After reviewing multiple treatment plans with dosimetry, the best plan was approved to deliver the prescribed course of radiation to the target area using inverse planning to allow for the best isodose distribution, treating to the 98.3% isodose line with 10MV and 3 parker. Custom MLC asym jaws forIMRT were the treatment devices used to shape/modify the beams. Limiting dose to normal tissue was confirmed upon review of the calculated dose volume histogram. IMRT planning was used because it best met the dose/volume constraints for the organs at risk for this patient, better than what could be achieved using conventional or 3D planning. The specific doserequirements for the PTV, organs at risk and dose-volume histograms are contained in this treatmentplan and/or elsewhere in the medical record. A completed summary of this plan dated 12/07/2024 incorporated herein by reference includes dose, beam arrangements, energy, blocking, isodose distribution, and/or ports and DVH. Electronically Signed Du Sandoval M.D. 53:47 PM documented in this encounterOhiohealth Shelby Hospital08-04-2025 NoteHNO ID: [id number] Author: Kwasi SANDOVAL MD Service: ? Author Type: Physician Type: Progress Notes Filed: 12/07/2024 15:47 Note Text: CIPRIANO ARZATE [id number] 11/29/2024 [facility] [place] [facility] - Department of Radiation Oncology Treatment Planning Note For reasons stated in the consult note, Cipriano Arzate is a candidate for radiation therapy. Based on review and interpretation of the relevant diagnostic studies together with the exam findings, Cipriano Arzate was simulated on 11/29/2024 at which time the target volume and/or requisite parker were delineated, as indicated in the simulation note, to be treated according to the prescription. The treatment target and organs at risk were contoured on the simulation scan using the fused MRI /. After reviewing multiple treatment plans with dosimetry, the best plan was approved to deliver the prescribed course of radiation to the target area using inverse planning to allow for the best isodose distribution, treating to the 98.3% isodose line with 10MV and 3 parker. Custom MLC asym jaws for IMRT were the treatment devices used to shape/modify the beams. Limiting dose to normal tissue was confirmed upon review of the calculated dose volume histogram. IMRT planning was used because it best met the dose/volume constraints for the organs at risk for this patient, better than what could be achieved using conventional or 3D planning. The specific dose requirements for the PTV, organs at risk and dose-volume histograms are contained in this treatment plan and/or elsewhere in the medical record. A completed summary of this plan dated 12/07/2024 incorporated herein by reference includes dose, beam arrangements, energy, blocking, isodose distribution, and/or ports and DVH. Electronically Signed Du Sandoval M.D. 53:47 [facility]08-04-2025 NoteHNO ID: [id number] Author: Kwasi SANDOVAL MD Service: ? Author Type: Physician Type: Progress Notes Filed: 11/29/2024 17:10 Note Text: CIPRIANO ARZATE [id number] 11/29/2024 [facility] Radiation Oncology Department SIMULATION NOTE DATE OF SIMULATION: 11/29/2024 THERAPIST: Shauna Cortes MACHINE: [employer] DIAGNOSIS: Malignant neoplasm of [id number] AREA: PELVIS CONTRAST: None Consent in Epic: Yes PATIENT POSITION: Supine. FIXATION DEVICE: In order to achieve accurate and reproducible treatments, the patient is immobilized with THE ORFIT AIO SYSTEM. A time-out was conducted and recorded by the therapist. CT scan was completed for target localization and planning. Field arrangement will be determined after plan has been completed. The patient is scheduled for a verification simulation on the treatment machine to ensure proper set-up and field arrangement is correct prior to the first treatment of primary and boost parker if applicable. Patient education will be completed per nursing. Electronically Signed Du Sandoval M.D. / ZAFAR 55:10 [facility]08-01-2025 Hospital Discharge instructions Patient Education 11/26/2024 11:49:44 Prostate Cancer Prostate Cancer The prostate is a small gland that produces fluid that makes up semen (seminal fluid). It is located below the bladder in men, in front of the rectum. Prostate cancer is the abnormal growth of cells in the prostate gland. What are the causes? The exact cause of this condition is not known. What increases the risk? You are more likely to develop this condition if: You are 65 years of age or older. You have a family history of prostate cancer. You have a family history of breast and ovarian cancer. You have genes that are passed from parent to child (inherited), such as BRCA1 and BRCA2. You have Stevens syndrome. men and men of descent are diagnosed with prostate cancer at higher rates than other men. The reasons for this are not well understood and are likely due to a combination of genetic and environmental factors. What are the signs or symptoms? Symptoms of this condition include: Problems with urination. This may include: ?A weak or interrupted flow of urine. ?Trouble starting or stopping urination. ?Trouble emptying the bladder all the way. ?The need to urinate more often, especially at night. Blood in urine or semen. Persistent pain or discomfort in the lower back, lower abdomen, or hips. Trouble getting an erection. Weakness or numbness in the legs or feet. How is this diagnosed? This condition can be diagnosed with: A digital rectal exam. For this exam, a health care provider inserts a gloved finger into the rectum to feel the prostate gland. A blood test called a prostate-specific antigen (PSA) test. A procedure in which a sample of tissue is taken from the prostate and checked under a microscope (prostate biopsy). An imaging test called transrectal ultrasonography. Once the condition is diagnosed, tests will be done to determine how far the cancer has spread. This is called staging the cancer. Staging may involve imaging tests, such as a bone scan, CT scan, PETscan, or MRI. Stages of prostate cancer The stages of prostate cancer are as follows: Stage 1 (I). At this stage, the cancer is found in the prostate only. The cancer is not visible on imaging tests, and it is usually found by accident, such as during prostate surgery. Stage 2 (II). At this stage, the cancer is more advanced than it is in stage 1, but the cancer has not spread outside the prostate. Stage 3 (III). At this stage, the cancer has spread beyond the outer layer of the prostate to nearby tissues. The cancer may be found in the seminal vesicles, which are near the bladder and the prostate. Stage 4 (IV). At this stage, the cancer has spread to other parts of the body, such as the lymph nodes, bones, bladder, rectum, liver, or lungs. Prostate cancer grading Prostate cancer is also graded according to how the cancer cells look under a microscope. This is called the Willard score and the total score can range from 6 10, indicating how likely it is that the cancer will spread (metastasize) to other parts of the body. The higher the score, the greater thelikelihood that the cancer will spread. Willard 6 or lower: This indicates that the cancer cells look similar to normal prostate cells (well differentiated). Archana 7: This indicates that the cancer cells look somewhat similar to normal prostate cells (moderately differentiated). Willard 8, 9, or 10: This indicates that the cancer cells look very different than normal prostate cells (poorly differentiated). How is this treated? Treatment for this condition depends on several factors, including the stage of the cancer, your age, personal preferences, and your overall health. Talk with your health care provider about treatment options that are recommended for you. Common treatments include: Observation for early stage prostate cancer (active surveillance). This involves having exams, blood tests, and in some cases, more biopsies. For some men, this is the only treatment needed. Surgery. Types of surgeries include: ?Open surgery (radical prostatectomy). In this surgery, a larger incision is made to remove the prostate. ?A laparoscopic radical prostatectomy. This is a surgery to remove the prostate and lymph nodes through several small incisions. It is often referred to as a minimally invasive surgery. ?A robotic radical prostatectomy. This is laparoscopic surgery to remove the prostate and lymph nodes with the help of robotic arms that are controlled by the surgeon. ?Cryoablation. This is surgery to freeze and destroy cancer cells. Radiation treatment. Types of radiation treatment include: ?External beam radiation. This type aims beams of radiation from outside the body at the prostate to destroy cancerous cells. ?Brachytherapy. This type uses radioactive needles, seeds, wires, or tubes that are implanted into the prostate gland. Like external beam radiation, brachytherapy destroys cancerous cells. An advantage is that this type of radiation limits the damage to surrounding tissue and has fewer side effects. Chemotherapy. This treatment kills cancer cells or stops them from multiplying. It kills both cancer cells and normal cells. Targeted therapy. This treatment uses medicines to kill cancer cells without damaging normal cells. Hormone treatment. This treatment involves taking medicines that act on testosterone, one of the male hormones, by: ?Stopping your body from producing testosterone. ?Blocking testosterone from reaching cancer cells. Follow these instructions at home: Lifestyle Do not use any products that contain nicotine or tobacco. These products include cigarettes, chewing tobacco, and vaping devices, such as e-cigarettes. If you need help quitting, ask your health careprovider. Eat a healthy diet. To do this: ?Eat foods that are high in fiber. These include beans, whole grains, and fresh fruits and vegetables. ?Limit foods that are high in fat and sugar. These include fried or sweet foods. Treatment for prostate cancer may affect sexual function. If you have a partner, continue to have intimate moments. This may include touching, holding, hugging, and caressing your partner. Get plenty of sleep. Consider joining a support group for men who have prostate cancer. Meeting with a support group mayhelp you learn to manage the stress of having cancer. General instructions Take [id number] and prescription medicines only as told by your health care provider. If you have to go to the hospital, notify your cancer specialist (oncologist). Keep all follow-up visits. This is important. Where to find more information [place] [employer]: www.cancer.org [place] [employer]: www.cancer.net National Cancer [place]: www.cancer.gov Contact a health care provider if: You have new or increasing trouble urinating. You have new or increasing blood in your urine. You have new or increasing pain in your hips, back, or chest. Get help right away if: You have weakness or numbness in your legs. You cannot control urination or your bowel movements (incontinence). You have chills or a fever. Summary The prostate is a small gland that is involved in the production of semen. It is located below a man's bladder, in front of the rectum. Prostate cancer is the abnormal growth of cells in the prostate gland. Treatment for this condition depends on the stage of the cancer, your age, personal preferences, and your overall health. Talk with your health care provider about treatment options that are recommended for you. Consider joining a support group for men who have prostate cancer. Meeting with a support group mayhelp you learn to manage the stress of having cancer. This information is not intended to replace advice given to you by your health care provider. Make sure you discuss any questions you have with your health care provider. Document Revised: 07/11/2021 Document Reviewed: 07/11/2021 [employer] Patient Education 2023 [employer] Follow Up Care 11/11/2024 14:54:22 With:MELINDA SANCHEZ, Clarissa Saldivar, URL Address: [address] [place] [address] [place] [address]- When: Unknown [facility] 08-01-2025 NotePatient Education Oncology Prostate Cancer The prostate is a small gland that produces fluid that makes up semen (seminal fluid). It is located below the bladder in men, in front of the rectum. Prostate cancer is the abnormal growth of cells in the prostate gland. What are the causes? The exact cause of this condition is not known. What increases the risk? You are more likely to develop this condition if: ??? You are 65 years of age or older. ??? You have a family history of prostate cancer. ??? You have a family history of breast and ovarian cancer. ??? You have genes that are passed from parent to child (inherited), such as BRCA1 and BRCA2. ??? You have Stevens syndrome. men and men of descent are diagnosed with prostate cancer at higher rates than other men. The reasons for this are not well understood and are likely due to a combination of genetic and environmental factors. What are the signs or symptoms? Symptoms of this condition include: ??? Problems with urination. This may include: ? A weak or interrupted flow of urine. ? Trouble starting or stopping urination. ? Trouble emptying the bladder all the way. ? The need to urinate more often, especially at night. ??? Blood in urine or semen. ??? Persistent pain or discomfort in the lower back, lower abdomen, or hips. ??? Trouble getting an erection. ??? Weakness or numbness in the legs or feet. How is this diagnosed? This condition can be diagnosed with: ??? A digital rectal exam. For this exam, a health care provider inserts a gloved finger into the rectum to feel the prostate gland. ??? A blood test called a prostate-specific antigen (PSA) test. ??? A procedure in which a sample of tissue is taken from the prostate and checked under a microscope (prostate biopsy). ??? An imaging test called transrectal ultrasonography. Once the condition is diagnosed, tests will be done to determine how far the cancer has spread. This is called staging the cancer. Staging may involve imaging tests, such as a bone scan, CT scan, PETscan, or MRI. Stages of prostate cancer The stages of prostate cancer are as follows: ??? Stage 1 (I). At this stage, the cancer is found in the prostate only. The cancer is not visibleon imaging tests, and it is usually found by accident, such as during prostate surgery. ??? Stage 2 (II). At this stage, the cancer is more advanced than it is in stage 1, but the cancer has not spread outside the prostate. ??? Stage 3 (III). At this stage, the cancer has spread beyond the outer layer of the prostate to nearby tissues. The cancer may be found in the seminal vesicles, which are near the bladder and the prostate. ??? Stage 4 (IV). At this stage, the cancer has spread to other parts of the body, such as the lymph nodes, bones, bladder, rectum, liver, or lungs. Prostate cancer grading Prostate cancer is also graded according to how the cancer cells look under a microscope. This is called the Archana score and the total score can range from 6?10, indicating how likely it is that the cancer will spread (metastasize) to other parts of the body. The higher the score, the greater thelikelihood that the cancer will spread. ??? Archana 6 or lower: This indicates that the cancer cells look similar to normal prostate cells (well differentiated). ??? Archana 7: This indicates that the cancer cells look somewhat similar to normal prostate cells (moderately differentiated). ??? Willard 8, 9, or 10: This indicates that the cancer cells look very different than normal prostate cells (poorly differentiated). How is this treated? Treatment for this condition depends on several factors, including the stage of the cancer, your age, personal preferences, and your overall health. Talk with your health care provider about treatment options that are recommended for you. Common treatments include: ??? Observation for early stage prostate cancer (active surveillance). This involves having exams, blood tests, and in some cases, more biopsies. For some men, this is the only treatment needed. ??? Surgery. Types of surgeries include: ? Open surgery (radical prostatectomy). In this surgery, a larger incision is made to remove the prostate. ? A laparoscopic radical prostatectomy. This is a surgery to remove the prostate and lymph nodes through several small incisions. It is often referred to as a minimally invasive surgery. ? A robotic radical prostatectomy. This is laparoscopic surgery to remove the prostate and lymph nodes with the help of robotic arms that are controlled by the surgeon. ? Cryoablation. This is surgery to freeze and destroy cancer cells. ??? Radiation treatment. Types of radiation treatment include: ? External beam radiation. This type aims beams of radiation from outside the body at the prostate to destroy cancerous cells. ? Brachytherapy. This type uses radioactive needles, seeds, wires, o (more content not included)...[facility]07-18-2025 Miscellaneous Notes* Telephone Encounter - Scot Pearson - 11/12/2024 12:54 PM EDT Called patient in regards to his referral for his colostomy takedown I did advise him that he wouldneed a more updated Ct which an order was placed. He suggested that he would like to wait until after his chemo radiation that starts next month. I advised that the CT order is on file for a year andthat once he is done he can call our office to schedule an appointment to see Dr. Boss in office and to discuss colostomy take down. Patient also would like to advise that he now has another hernia. [facility] Telephone encounter Note* Telephone Encounter - Scot Pearson - 11/12/2024 12:54 PM EDT Called patient in regards to his referral for his colostomy takedown I did advise him that he wouldneed a more updated Ct which an order was placed. He suggested that he would like to wait until after his chemo radiation that starts next month. I advised that the CT order is on file for a year andthat once he is done he can call our office to schedule an appointment to see Dr. Boss in office and to discuss colostomy take down. Patient also would like to advise that he now has another hernia. [facility] [employer] [id number] Telephone encounter Note* Telephone Encounter - Ayah Soriano - 11/12/2024 8:46 AM EDT Pre sim moved to 1pm [facility]07-18-2025 Miscellaneous Notes* Telephone Encounter - Ayah Soriano - 11/12/2024 8:46 AM EDT Pre sim moved to 1pm * Telephone Encounter - Noy Zuluaga RT(R) - 11/12/2024 8:42 AM EDT Elena Robles spoke to patient who needed a later time. Sim moved to 1:30 please reschedule presim consent to 1:00pm on 11/29 RT Mary Ann(R) * Telephone Encounter - Hillary Melendez RT(R) - 11/12/2024 7:36 AM EDT Sim scheduled on 11/29/24 at 830am PSS - please schedule presim consent with CONNER at 8am & notify pt of 745 arrival time w/ full bladder. Thanks! RT Dominick(R)(T) * Telephone Encounter - Ayah Soriano - 11/11/2024 2:54 PM EDT nnea Claudio, November 26 at 1030am in the [place] office. Patient confirmed * Telephone Encounter - Ayah Soriano - 11/11/2024 2:44 PM EDT Nurse Ed added for today * Telephone Encounter - Radha Serrano RN - 11/11/2024 2:30 PM EDT PSS/RT: please schedule See Lawrence for lupron Plan ebrt only Return for sim treating pelvis with full bladder Presim consent Nurse ed today Thanks Radha Serrano RN documented [facility] Telephone encounter Note * Telephone Encounter - Noy Zuluaga RT(R) - 11/12/2024 8:42 AM EDT Elena Robles spoke to patient who needed a later time. Sim moved to 1:30 please reschedule presim consent to 1:00pm on 11/29 RT Mary Ann(R) [facility] Work Phone: [phone]) 810-684407-18-2025 Telephone encounter Note* Telephone Encounter - Hillary Melendez RT(R) - 11/12/2024 7:36 AM EDT Sim scheduled on 11/29/24 at 830am PSS - please schedule presim consent with CONNER at 8am & notify pt of 745 arrival time w/ full bladder. Thanks! RT Dominick(R)(T) [facility] Work Phone: [phone] NoteHNO ID: [id number] Author: RADHA SERRANO RN Service: ? Author Type: Registered Nurse Type: Progress Notes Filed: 11/11/2024 14:57 Note Text: Radiation Therapy - Patient Education Note PATIENT NAME: Cipriano SPENCE November 11, 2024 [facility] FACILITY/LOCATION: [facility] READINESS TO LEARN Cognitive Ability: Alert and oriented Easily distracted by talking about multiple ideas/subjects. Motivation to learn: Interested Family Support: Unable to assess - Family not present Instruction provide to: Patient Patient learns best by: Multiple Methods Factors effecting learning: None Physical limitations effecting learning: None LEARNING RESPONSE Diagnosis: Pt simulated today for radiation therapy to pelvis. Education Topic/Teaching Points: Radiation therapy, Side effects, and OTV: Method of instruction: Group class instruction Written instruction/Handouts Patient /Family response: Patient verbalized understanding of radiation treatments, side effects, OTV, and transportation. Follow-up plan: Patient instructed to call with any further issues Recommend - Recommend continued instruction and follow up as directed Contact information given. Supplemental material: Informational handouts on Bladder function, Diarrhea, Fatigue, Pelvic handout, Skin changes, and patient education binder. Referral (recommendation): None, Pt denied need for social work, van service, and journalism internship. Was PED reviewed? No Patient has an Onbody or Implanted device: No Signed by: Radha Serrano RNReg[facility] History of Present illness Narrative* Radha Serrano RN - 11/11/2024 2:55 PM EDT Radiation Therapy - Patient Education Note PATIENT NAME: Cipriano SPENCE November 11, 2024 [facility] FACILITY/LOCATION: [facility] READINESS TO LEARN Cognitive Ability: Alert and oriented Easily distracted by talking about multiple ideas/subjects. Motivation to learn: Interested Family Support: Unable to assess - Family not present Instruction provide to: Patient Patient learns best by: Multiple Methods Factors effecting learning: None Physical limitations effecting learning: None LEARNING RESPONSE Diagnosis: Pt simulated today for radiation therapy to pelvis. Education Topic/Teaching Points: Radiation therapy, Side effects, and OTV: Method of instruction: Group class instruction Written instruction/Handouts Patient /Family response: Patient verbalized understanding of radiation treatments, side effects, OTV, and transportation. Follow-up plan: Patient instructed to call with any further issues Recommend - Recommend continued instruction and follow up as directed Contact information given. Supplemental material: Informational handouts on Bladder function, Diarrhea, Fatigue, Pelvic handout, Skin changes, and patient education binder. Referral (recommendation): None, Pt denied need for social work, van service, and journalism internship. Was PED reviewed? No Patient has an Onbody or Implanted device: No Signed by: Radha Serrano RN documented in this encounterOhio[facility]07-[facility]-2025 Telephone encounter Note * Telephone Encounter - Ayah Soriano - 11/11/2024 2:[address] Melinda Schaeffer, nena Garridoesa, November 26 at 1030am in the [place] office. Patient confirmed [facility]07-17-2025 Telephone encounter Note* Telephone Encounter - Ayah Soriano - 11/11/2024 2:44 PM EDT Nurse Ed added for today [facility]07-17-2025 Telephone encounter Note* Telephone Encounter - Radha Serrano RN - 11/11/2024 2:30 PM EDT PSS/RT: please schedule See Melinda schaeffer Plan ebrt only Return for sim treating pelvis with full bladder Presim consent Nurse ed today Thanks Radha Serrano RN [facility]07-17-2025 NoteHNO ID: [id number] Author: Kwasi SANDOVAL MD Service: ? Author Type: Physician Type: Progress Notes Filed: 11/11/2024 14:45 Note Text: Radiation Oncology - Prostate Cancer Follow-up note PATIENT NAME: Cipriano Arzate PATIENT DIAGNOSIS: Prostate adenocarcinoma, initial PSA 15.33, biopsy Archana score 3 + 4 = 7 (grade group 2), clinical stage T2a, N0, M0, stage IIB [T1-T2, N0, M0, PSA <20, GG 2] (AJCC 8th ed.), s/p biopsy. NCCN Risk Group: Unfavorable Intermediate Risk Group HPI: Patient returns after further staging. PSMA PET 10/26/2024: IMPRESSION: PROSTATE: * No PSMA expressing prostate lesion. * Mild heterogeneous PSMA uptake in the prostate, nonspecific. DOV DISEASE: * No PSMA expressing pelvic lymphadenopathy. METASTATIC DISEASE: * No PSMA expressing distant metastases. The patient reports the following pertinent history: Urinary frequency (D/N): 4-6/1-2 Dysuria: No Incontinence: 1- No pads Hematuria: See HPI - Total AUA Score: 13 Bowel Movement Frequency: 1/day Bowel Movement Quality: Normal Blood per Rectum: No Androgen Deprivation: none Prior Radiation Therapy, Collagen Vascular Disease, or Inflammatory Bowel Disease: No Any implanted or external electric devices? No Currently on Anticoagulation: No History of Hip Replacement: No History of Prior TURP: No ALLERGIES Allergen Reactions Red Food Color (Bul* Other: See Comments Rectal bleeding per patient amLODIPine (NORVASC) 10 mg tablet Take 10 mg by mouth once daily. docusate sodium (STOOL SOFTENER PO) Take by mouth. PAST MEDICAL HISTORY Diagnosis Date Diverticulosis HTN (hypertension) PAST SURGICAL HISTORY Procedure Laterality Date COLON VIA STOMA RESECTION colon resection d/t diverticulitis HERNIA REPAIR HX umilical x 1, bilateral groin FAMILY HISTORY Problem Relation Age of Onset Cancer Mother Cancer Maternal Grandmother Social History Tobacco Use Smoking status: Former Types: Cigarettes Smokeless tobacco: Never Substance Use Topics Alcohol use: Not Currently Drug use: Yes Types: Marijuana REVIEW OF SYSTEMS: GENERAL: feeling well without fatigue, no recent change in weight NECK: denies swelling or pain in neck RESPIRATORY: Chronic cough periodic COPD exacerbations, this is prevented him from having his colostomy reversed he denies any hemoptysis or recent fever. CARDIOVASCULAR: no chest pain, no palpitations GI: See HPI : See HPI, does complain of chronic left scrotal discomfort. MUSCULOSKELETAL: denies any painful or swollen joints, no muscle aches SKIN: no rash NEURO: no numbness or paresthesias and no weakness of the extremities As noted in HPI PHYSICAL EXAM: VS: BP 142/84 Pulse 70 Temp 36.5 ?C (97.7 ?F) Resp 18 Wt 77.6 kg (171 lb 1.2 oz) SpO2 97% KARNOFSKY PERFORMANCE STATUS: 90 General Appearance: Alert and oriented. No acute distress. HEENT: NCAT. Sclera anicteric. PERRL. EOMI. Chest: No respiratory distress. Lungs clear to auscultation bilaterally. Abdomen: Soft. Nontender. Nondistended. Colostomy intact. Small left inguinal hernia. Musculoskeletal: No edema. Normal ROM in extremities. No bone or spine tenderness. Neuro: Speech fluent. Gait normal. No focal deficits. Rectal: Deferred RADIOLOGY/LABORATORY DATA: see HPI ASSESSMENT/PLAN: Prostate adenocarcinoma, initial PSA 15.33, biopsy Archana score 3 + 4 = 7 (grade group 2), clinical stage T2a, N0, M0, stage IIB [T1-T2, N0, M0, PSA <20, GG 2] (AJCC 8th ed.), s/p biopsy. NCCN Risk Group: Unfavorable Intermediate Risk Group Again discussed potential options with patient. Again discussed both active surveillance and definitive treatment. Given his unfavorable intermediate risk process I do feel definitive treatment warranted. Discussed both surgical and radiation approaches again. Answered many questions. Patient wants to proceed with external beam only. I would recommend addition of ADT for 6 to 12 months especially around his unfavorable intermediate risk presentation. Signed by: Kwasi Sandoval MD cc: GREGORIO Conner [id number] [facility] [id number] Hospital [facility]07-17-2025 History of Present illness Narrative* Kwasi Sandoval MD - 11/11/2024 1:46 PM EDT Radiation Oncology - Prostate Cancer Follow-up note PATIENT NAME: Cipriano SPENCE DIAGNOSIS: Prostate adenocarcinoma, initial PSA 15.33, biopsy Willard score 3 + 4 = 7 (grade group 2), clinical stage T2a, N0, M0, stage IIB [T1-T2, N0, M0, PSA <20, GG 2] (AJCC 8th ed.), s/p biopsy. NCCN Risk Group: Unfavorable Intermediate Risk Group HPI: Patient returns after further staging. PSMA PET 10/26/2024: IMPRESSION: PROSTATE: * No PSMA expressing prostate lesion. * Mild heterogeneous PSMA uptake in the prostate, nonspecific. DOV DISEASE: * No PSMA expressing pelvic lymphadenopathy. METASTATIC DISEASE: * No PSMA expressing distant metastases. The patient reports the following pertinent history: Urinary frequency (D/N): 4-6/1-2 Dysuria: No Incontinence: 1- No pads Hematuria: See HPI - Total AUA Score: 13 Bowel Movement Frequency: 1/day Bowel Movement Quality: Normal Blood per Rectum: No Androgen Deprivation: none Prior Radiation Therapy, Collagen Vascular Disease, or Inflammatory Bowel Disease: No Any implanted or external electric devices? No Currently on Anticoagulation: No History of Hip Replacement: No History of Prior TURP: No ALLERGIES Allergen Reactions Red Food Color (Bul* Other: See Comments Rectal bleeding per patient amLODIPine (NORVASC) 10 mg tablet Take 10 mg by mouth once daily. docusate sodium (STOOL SOFTENER PO) Take by mouth. PAST MEDICAL HISTORY Diagnosis Date Diverticulosis HTN (hypertension) PAST SURGICAL HISTORY Procedure Laterality Date COLON VIA STOMA RESECTION colon resection d/t diverticulitis HERNIA REPAIR HX umilical x 1, bilateral groin FAMILY HISTORY Problem Relation Age of Onset Cancer Mother Cancer Maternal Grandmother Social History Tobacco Use Smoking status: Former Types: Cigarettes Smokeless tobacco: Never Substance Use Topics Alcohol use: Not Currently Drug use: Yes Types: Marijuana REVIEW OF SYSTEMS: GENERAL: feeling well without fatigue, no recent change in weight NECK: denies swelling or pain in neck RESPIRATORY: Chronic cough periodic COPD exacerbations, this is prevented him from having his colostomy reversed he denies any hemoptysis or recent fever. CARDIOVASCULAR: no chest pain, no palpitations GI: See HPI : See HPI, does complain of chronic left scrotal discomfort. MUSCULOSKELETAL: denies any painful or swollen joints, no muscle aches SKIN: no rash NEURO: no numbness or paresthesias and no weakness of the extremities As noted in HPI PHYSICAL EXAM: VS: BP 142/84 Pulse 70 Temp 36.5 C (97.7 F) Resp 18 Wt 77.6 kg (171 lb 1.2 oz) SpO2 97% KARNOFSKY PERFORMANCE STATUS: 90 General Appearance: Alert and oriented. No acute distress. HEENT: NCAT. Sclera anicteric. PERRL. EOMI. Chest: No respiratory distress. Lungs clear to auscultation bilaterally. Abdomen: Soft. Nontender. Nondistended. Colostomy intact. Small left inguinal hernia. Musculoskeletal: No edema. Normal ROM in extremities. No bone or spine tenderness. Neuro: Speech fluent. Gait normal. No focal deficits. Rectal: Deferred RADIOLOGY/LABORATORY DATA: see HPI ASSESSMENT/PLAN: Prostate adenocarcinoma, initial PSA 15.33, biopsy Willard score 3 + 4 = 7 (grade group 2), clinical stage T2a, N0, M0, stage IIB [T1-T2, N0, M0, PSA <20, GG 2] (AJCC 8th ed.), s/p biopsy. NCCN Risk Group: Unfavorable Intermediate Risk Group Again discussed potential options with patient. Again discussed both active surveillance and definitive treatment. Given his unfavorable intermediate risk process I do feel definitive treatment warranted. Discussed both surgical and radiation approaches again. Answered many questions. Patient wantsto proceed with external beam only. I would recommend addition of ADT for 6 to 12 months especiallyaround his unfavorable intermediate risk presentation. Signed by: Kwasi Sandoval MD cc: GREGORIO Conner [address] [place] [address] documented in this encounterOhiohealth [facility] Hospital07-17-2025 NoteEducation (RADAROLDOA) CIPRIANO ARZATE ([id number]) 1960 M Date Time Provider Department 11/11/24 RADHA SERRANO Reason for Visit: Patient Education [91] During your visit today, we recorded the following information about you: Allergies As of Date: 11/11/2024 Noted Allergy Reaction RED FOOD COLOR (BULK) 10/20/2024 14 - Other: See Comments Comments: Rectal bleeding per patient Date Reviewed: 11/11/2024 Reviewed by: Radha Serrano RN - Fully Assessed Prescriptions as of 11/11/2024 - amLODIPine (NORVASC) 10 mg tablet Take 10 mg by mouth once daily. - docusate sodium (STOOL SOFTENER PO) Take by mouth. Encounter Status:Closed by RADHA SERRANO on 11/11/24[facility] History of Present illness Narrative* Braden Walsh RN - 11/05/2024 12:00 PM EDT Radiology Service Progress Note DATE OF SERVICE: November 05, 2024 TIME: 12:01 PM PATIENT IDENTITY VERIFICATION COMPLETED USING TWO (2) STANDARD IDENTIFIERS: Name and Date of confirmed by patient verbally. FALL SCREENING: Has the patient had 2 falls in the last year or 1 fall with injury or currently using an Ambulatory Assistive Device (Walker, Cane, Wheelchair, Crutches, etc.)? No PATIENT GENDER DATA: Assigned male at EXAM: CT -CONTRAST INDUCED NEPHROPATHY RISK FACTORS: Not applicable CREATININE: No results found for: CREAT , EGFROTH , EGFRAA P.O.C.T. RESULTS: N/A November 05, 2024 TREATMENT: N/A IV SITE: Ambulatory: A peripheral IV was started in the Right antecubital site with a Angio cath: 22 gauge. IV SITE APPEARANCE: Clean,Dry and Intact SIGNATURE: Braden Walsh RN PATIENT NAME: Cipriano Arzate DATE: November 05, 2024 TIME: 12:01 PM documented in this encounterOhiohealth Shelby Hospital07-11-2025 NoteHNO ID: [id number] Author: BRADEN WALSH RN Service: ? Author Type: Registered Nurse Type: Progress Notes Filed: 11/05/2024 12:01 Note Text: Radiology Service Progress Note DATE OF SERVICE: November 05, 2024 TIME: 12:01 PM PATIENT IDENTITY VERIFICATION COMPLETED USING TWO (2) STANDARD IDENTIFIERS: Name and Date of confirmed by patient verbally. FALL SCREENING: Has the patient had 2 falls in the last year or 1 fall with injury or currently using an Ambulatory Assistive Device (Walker, Cane, Wheelchair, Crutches, etc.)? No PATIENT GENDER DATA: Assigned male at EXAM: CT -CONTRAST INDUCED NEPHROPATHY RISK FACTORS: Not applicable CREATININE: No results found for: CREAT , EGFROTH , EGFRAA P.O.C.T. RESULTS: N/A November 05, 2024 TREATMENT: N/A IV SITE: Ambulatory: A peripheral IV was started in the Right antecubital site with a Angio cath: 22 gauge. IV SITE APPEARANCE: Clean,Dry and Intact SIGNATURE: Braden Walsh RN PATIENT NAME: Cipriano Arzate DATE: November 05, 2024 TIME: 12:01 [facility]07-08-2025 History of Present illness Narrative* Yissel Arevalo NP - 11/02/2024 1:42 PM EDTAssociated Problem(s): Colostomy in place (HCC) Would like to bosio possible reversal * SHALINI RAMIRES - 11/02/2024 1:00 PM EDT PET scan on Radiation but not set date * Yissel Arevalo NP - 11/02/2024 1:00 PM EDT Images from the original note were not included. Cipriano Arzate is a 64 y.o. male presents with chief complaint of Follow-up HPI: Labs: elevated PSA, had bx, +cancer, archana [address] gerardo, going to have PET scan likely radiation Also has left testicle swelling and urology is aware of this Was supposed to go back to see dr boss in [place], has called the office a few times no response Hypertension This is a chronic problem. The current episode started more than 1 year ago. The problem is unchanged. The problem is controlled. Pertinent negatives include no headaches, orthopnea, peripheral edema, PND or shortness of breath. There are no associated agents to hypertension. Past treatments include calcium channel blockers. The current treatment provides significant improvement. There are no compliance problems. SUBJECTIVE: MEDICATIONS: Current Outpatient Medications Medication Instructions amLODIPine (NORVASC) 10 mg, Oral, Daily fluticasone (Flonase) 50 MCG/ACT nasal spray 1-2 sprays, Each Nostril, Daily, Shake gently. Before first use, prime pump. After use, clean tip and replace cap. ALLERGIES: Allergies Allergen Reactions Red Dye #40 (Allura Red) Other Rectal bleeding per patient REVIEW OF SYMPTOMS: Review of Systems Constitutional: Negative for activity change, appetite change and unexpected weight change. HENT: Negative for ear pain, nosebleeds, sneezing, trouble swallowing and voice change. Eyes: Negative for pain, discharge and visual disturbance. Respiratory: Negative for apnea, chest tightness, shortness of breath and wheezing. Cardiovascular: Negative for orthopnea, leg swelling and PND. Gastrointestinal: Negative for abdominal distention, blood in stool, constipation and diarrhea. Genitourinary: Negative for decreased urine volume, difficulty urinating, dysuria and hematuria. Testicle swelling Skin: Negative for color change. Neurological: Negative for dizziness, tremors, seizures and headaches. Psychiatric/Behavioral: Negative for agitation, decreased concentration, hallucinations, self-injury and suicidal ideas. The patient is not nervous/anxious. Hematological: Negative for adenopathy. Does not bruise/bleed easily. Endocrine: Negative for cold intolerance, heat intolerance, polydipsia and polyuria. Allergic/Immunologic: Negative for environmental allergies and food allergies. PAST MEDICAL HISTORY Past Medical History: Diagnosis Date Arthritis Diverticulitis of colon without hemorrhage History of colonoscopy with polypectomy 7mm polyp removed History of nocturia HTN (hypertension) Inguinal hernia Internal and external bleeding hemorrhoids 1 polyp on 2019 Colonoscopy Rectal bleeding Umbilical hernia without obstruction or gangrene Past Surgical History: Procedure Laterality Date HERNIA REPAIR Inguinal - Right (2007) ; Left (01/2018) family history includes Cancer in his mother; Heart disease in his father; Stroke in his father. OBJECTIVE: Visit Vitals BP 132/82 (BP Location: Left arm, Patient Position: Sitting, BP Cuff Size: Adult) Pulse 100 Temp 97.8 F (Temporal) Resp 22 Wt 169 lb 12.8 oz SpO2 96% BMI 24.36 kg/m Smoking Status Never BSA 1.95 m Physical Exam Vitals and nursing note reviewed. Constitutional: Appearance: Normal appearance. HENT: Head: Normocephalic. Right Ear: External ear normal. Left Ear: External ear normal. Nose: Nose normal. Mouth/Throat: Mouth: Mucous membranes are moist. Pharynx: Oropharynx is clear. Eyes: Extraocular Movements: Extraocular movements intact. Conjunctiva/sclera: Conjunctivae normal. Cardiovascular: Rate and Rhythm: Normal rate and regular rhythm. Pulses: Normal pulses. Heart sounds: Normal heart sounds. Pulmonary: Effort: Pulmonary effort is normal. Breath sounds: Normal breath sounds. Abdominal: General: Bowel sounds are normal. Palpations: Abdomen is soft. Comments: Colostomy drainage: brown stool Musculoskeletal: Cervical back: Neck supple. Skin: General: Skin is warm and dry. Capillary Refill: Capillary refill takes 2 to 3 seconds. Neurological: General: No focal deficit present. Mental Status: He is alert. Psychiatric: Mood and Affect: Mood normal. Behavior: Behavior normal. Thought Content: Thought content normal. Judgment: Judgment normal. ASSESSMENT AND PLAN: No follow-ups on file. Problem List Items Addressed This Visit Primary hypertension - Primary Please check blood pressure daily and record DASH diet Limit caffeine Take medication as directed Contact office if chest pain, pressure, dizziness, shortness of breath, swelling legs Recommend slow position changes Current meds: amlodipine Relevant Medications amLODIPine (Norvasc) 10 MG tablet Adenocarcinoma of prostate (HCC) Reviewed notes from radiation oncologist BPH with elevated PSA Continue with urology * Yissel Arevalo NP - 11/02/2024 6:19 AM EDTAssociated Problem(s): Adenocarcinoma of prostate (HCC) Reviewed notes from radiation oncologist * Yissel Arevalo NP - 11/02/2024 6:18 AM EDTAssociated Problem(s): BPH with elevated PSA Continue with urology * Yissel Arevalo NP - 11/02/2024 6:17 AM EDTAssociated Problem(s): Primary hypertension Please check blood pressure daily and record DASH diet Limit caffeine Take medication as directed Contact office if chest pain, pressure, dizziness, shortness of breath, swelling legs Recommend slow position changes Current meds: amlodipine documented in this encounterMercy Hospital [id number] Instructions* Patient Instructions* Ysisel Arevalo NP - 11/02/2024 1:00 PM EDT Keep follow up with Cancer doctor and urology I will reach out to dr Boss's office in [place] documented in this encounterMercy Hospital [id number] Telephone encounter Note* Telephone Encounter - Ayah Soriano - 10/20/2024 3:23 PM EDT This form is used for MAIN CAMPUS APPOINTMENTS ONLY. Is this request for a [facility] [place] PET scan appointment? Yes: Rn Nursery: Ayah Soriano Who do we call to schedule this appointment? Other Contact: PSMA PET to be done in [place] location. Route to Radha Marmolejo in [place] to schedule Requesting Staff Du Sandoval Area Code + Phone/Pager: [phone] PET Orders (A delay in scheduling will result if the orders are not present at time of review): Internal ADDITIONAL ACTION MAY BE REQUIRED IF PATIENTS OON INSURANCE OR SELF PAY COVERAGE HAS NOT BEEN CLEARED FOR REQUESTED APPOINTMENT. Scheduling: MONICA: As soon as insurance will allow What account will this PET appointment be linked to? P/F Type of PET: Oncology: Are there additional diagnostic CT scans required to be done at time of PET scan? No Is the request for a PET MR ? No What account will diagnostic testing appointment be linked to? P/F Will the patient need anesthesia? NO Send requests to P [facility]06-25-2025 Miscellaneous Notes* Telephone Encounter - Ayah Soriano - 10/20/2024 3:23 PM EDT This form is used for MAIN CAMPUS APPOINTMENTS ONLY. Is this request for a [facility] [place] PET scan appointment? Yes: Rn Nursery: Ayah Soriano Who do we call to schedule this appointment? Other Contact: PSMA PET to be done in [place] location. Route to Radha Marmolejo in [place] to schedule Requesting Staff Du StiohugoDaixe Area Code + Phone/Pager: [phone] PET Orders (A delay in scheduling will result if the orders are not present at time of review): Internal ADDITIONAL ACTION MAY BE REQUIRED IF PATIENTS OON INSURANCE OR SELF PAY COVERAGE HAS NOT BEEN CLEARED FOR REQUESTED APPOINTMENT. Scheduling: MONICA: As soon as insurance will allow What account will this PET appointment be linked to? P/F Type of PET: Oncology: Are there additional diagnostic CT scans required to be done at time of PET scan? No Is the request for a PET MR ? No What account will diagnostic testing appointment be linked to? P/F Will the patient need anesthesia? NO Send requests to P [facility] documented in this encounterOhiohealth [facility] Hospital06-25-2025 NoteHNO ID: [id number] Author: Kwasi SANDOVAL MD Service: ? Author Type: Physician Type: Progress Notes Filed: 10/21/2024 11:41 Note Text: Radiation Oncology - Prostate Cancer New Patient/Consult Note PATIENT NAME: Cipriano Arzate PATIENT REQUESTING PROVIDER: Dr. Lawrence DIAGNOSIS: 64 year old male with prostate adenocarcinoma, initial PSA 15.33, biopsy Archana score 3 + 4 = 7 (grade group 2), clinical stage T2a, N0, M0, stage IIB [T1-T2, N0, M0, PSA <20, GG 2] (AJCC 8th ed.), s/p biopsy. NCCN Risk Group: Unfavorable Intermediate Risk Group Cancer Staging No matching staging information was found for the patient. HPI: 64 year old male with prostate adenocarcinoma who presents for an opinion regarding the role of radiation therapy in the management of the patient's disease. Final recommendations will be communicated back to the requesting physician by way of the shared medical record, or letter to requesting physician via [place] mail. The patient was diagnosed with prostate cancer and comes in today to discuss treatment options. Patient presented with elevated PSA, 15.33 on 08/05/2024, repeated showing a value of 13.0 on 08/08/2024. (10.2% free). He had also had complaints of left testicular swelling and has known bilateral inguinal hernias. He was found to have microscopic hematuria on UA. He underwent cystoscopy as well as transrectal ultrasound biopsy. Urine cytology negative. Prostate biopsy on September 15, 2024 revealed: Adenocarcinoma Willard 7 (3+4) from left lateral apical right base right lateral base cores, Willard 6 from left base left mid left apical and right apical cores. Total # of positive biopsy cores: 7 Total # of biopsy cores sampled: 12 Greatest % cancer in any single core: 25-50% Staging Studies: CT abdomen 11/26/2023: Colostomy left lower abdomen. No suspicious findings otherwise Ultrasound scrotum 10/04/2024, no testicular mass. Left hydrocele seen. Previous Treatment for Prostate Cancer: None Genomic Testing: None The patient reports the following pertinent history: Urinary frequency (D/N): 4-6/1-2 Dysuria: No Incontinence: 1- No pads Hematuria: See HPI - Total AUA Score: 13 Bowel Movement Frequency: 1/day Bowel Movement Quality: Normal Blood per Rectum: No Androgen Deprivation: none Prior Radiation Therapy, Collagen Vascular Disease, or Inflammatory Bowel Disease: No Any implanted or external electric devices? No Currently on Anticoagulation: No History of Hip Replacement: No History of Prior TURP: No ALLERGIES Allergen Reactions Red Food Color (Bul* Other: See Comments Rectal bleeding per patient amLODIPine (NORVASC) 10 mg tablet Take 10 mg by mouth once daily. docusate sodium (STOOL SOFTENER PO) Take by mouth. PAST MEDICAL HISTORY Diagnosis Date Diverticulosis HTN (hypertension) PAST SURGICAL HISTORY Procedure Laterality Date COLON VIA STOMA RESECTION colon resection d/t diverticulitis HERNIA REPAIR HX umilical x 1, bilateral groin FAMILY HISTORY Problem Relation Age of Onset Cancer Mother Cancer Maternal Grandmother Social History Tobacco Use Smoking status: Former Types: Cigarettes Smokeless tobacco: Never Substance Use Topics Alcohol use: Not Currently Drug use: Yes Types: Marijuana REVIEW OF SYSTEMS: GENERAL: feeling well without fatigue, no recent change in weight NECK: denies swelling or pain in neck RESPIRATORY: Chronic cough periodic COPD exacerbations, this is prevented him from having his colostomy reversed he denies any hemoptysis or recent fever. CARDIOVASCULAR: no chest pain, no palpitations GI: See HPI : See HPI, does complain of chronic left scrotal discomfort. MUSCULOSKELETAL: denies any painful or swollen joints, no muscle aches SKIN: no rash NEURO: no numbness or paresthesias and no weakness of the extremities As noted in HPI PHYSICAL EXAM: VS: BP (P) 126/86 Pulse (P) 101 Temp (P) 36.8 ?C (98.3 ?F) Resp (P) 16 Wt (P) 76.9 kg (169 lb 8.5 oz) SpO2 (P) 95% KARNOFSKY PERFORMANCE STATUS: 90 General Appearance: Alert and oriented. No acute distress. HEENT: NCAT. Sclera anicteric. PERRL. EOMI. Chest: No respiratory distress. Lungs clear to auscultation bilaterally. Abdomen: Soft. Nontender. Nondistended. descended testicles, left greater than right no firm nodule Musculoskeletal: No edema. Normal ROM in extremities. No bone or spine tenderness. Neuro: Speech fluent. Gait normal. No focal deficits. Rectal: Deferred RADIOLOGY/LABORATORY DATA: see HPI ASSESSMENT/PLAN: Prostate adenocarcinoma, initial PSA 15.33, biopsy Archana score 3 + 4 = 7 (grade group 2), clinical stage T2a, N0, M0, stage IIB [T1-T2, N0, M0, PSA <20, GG 2] (AJCC 8th ed.), s/p biopsy. NCCN Risk Group: Unfavorable Intermediate Risk Group Patient presents with localized unfavorable intermediate risk prostate cancer. Also with history of diverticulitis and abscess stat (more content not included)...[facility]06-25-2025 History of Present illness Narrative* Kwasi Sandoval MD - 10/20/2024 3:00 PM EDT Radiation Oncology - Prostate Cancer New Patient/Consult Note PATIENT NAME: Cipriano Arzate PATIENT REQUESTING PROVIDER: Dr. Lawrence DIAGNOSIS: 64 year old male with prostate adenocarcinoma, initial PSA 15.33, biopsy Archana score 3+ 4 = 7 (grade group 2), clinical stage T2a, N0, M0, stage IIB [T1-T2, N0, M0, PSA <20, GG 2] (AJCC 8th ed.), s/p biopsy. NCCN Risk Group: Unfavorable Intermediate Risk Group Cancer Staging No matching staging information was found for the patient. HPI: 64 year old male with prostate adenocarcinoma who presents for an opinion regarding the role of radiation therapy in the management of the patient's disease. Final recommendations will be communicated back to the requesting physician by way of the shared medical record, or letter to requestingphysician via [place] mail. The patient was diagnosed with prostate cancer and comes in today to discuss treatment options. Patient presented with elevated PSA, 15.33 on 08/05/2024, repeated showing a value of 13.0 on 08/08/2024. (10.2% free). He had also had complaints of left testicular swelling and has known bilateral inguinal hernias. He was found to have microscopic hematuria on UA. He underwent cystoscopy as well as transrectal ultrasound biopsy. Urine cytology negative. Prostate biopsy on September 15, 2024 revealed: Adenocarcinoma Archana 7 (3+4) from left lateral apical right base right lateral base cores, Archana 6 from left base left mid left apical and right apical cores. Total # of positive biopsy cores: 7 Total # of biopsy cores sampled: 12 Greatest % cancer in any single core: 25-50% Staging Studies: CT abdomen 11/26/2023: Colostomy left lower abdomen. No suspicious findings otherwise Ultrasound scrotum 10/04/2024, no testicular mass. Left hydrocele seen. Previous Treatment for Prostate Cancer: None Genomic Testing: None The patient reports the following pertinent history: Urinary frequency (D/N): 4-6/1-2 Dysuria: No Incontinence: 1- No pads Hematuria: See HPI - Total AUA Score: 13 Bowel Movement Frequency: 1/day Bowel Movement Quality: Normal Blood per Rectum: No Androgen Deprivation: none Prior Radiation Therapy, Collagen Vascular Disease, or Inflammatory Bowel Disease: No Any implanted or external electric devices? No Currently on Anticoagulation: No History of Hip Replacement: No History of Prior TURP: No ALLERGIES Allergen Reactions Red Food Color (Bul* Other: See Comments Rectal bleeding per patient amLODIPine (NORVASC) 10 mg tablet Take 10 mg by mouth once daily. docusate sodium (STOOL SOFTENER PO) Take by mouth. PAST MEDICAL HISTORY Diagnosis Date Diverticulosis HTN (hypertension) PAST SURGICAL HISTORY Procedure Laterality Date COLON VIA STOMA RESECTION colon resection d/t diverticulitis HERNIA REPAIR HX umilical x 1, bilateral groin FAMILY HISTORY Problem Relation Age of Onset Cancer Mother Cancer Maternal Grandmother Social History Tobacco Use Smoking status: Former Types: Cigarettes Smokeless tobacco: Never Substance Use Topics Alcohol use: Not Currently Drug use: Yes Types: Marijuana REVIEW OF SYSTEMS: GENERAL: feeling well without fatigue, no recent change in weight NECK: denies swelling or pain in neck RESPIRATORY: Chronic cough periodic COPD exacerbations, this is prevented him from having his colostomy reversed he denies any hemoptysis or recent fever. CARDIOVASCULAR: no chest pain, no palpitations GI: See HPI : See HPI, does complain of chronic left scrotal discomfort. MUSCULOSKELETAL: denies any painful or swollen joints, no muscle aches SKIN: no rash NEURO: no numbness or paresthesias and no weakness of the extremities As noted in HPI PHYSICAL EXAM: VS: BP (P) 126/86 Pulse (P) 101 Temp (P) 36.8 C (98.3 F) Resp (P) 16 Wt (P) 76.9 kg (169 lb8.5 oz) SpO2 (P) 95% KARNOFSKY PERFORMANCE STATUS: 90 General Appearance: Alert and oriented. No acute distress. HEENT: NCAT. Sclera anicteric. PERRL. EOMI. Chest: No respiratory distress. Lungs clear to auscultation bilaterally. Abdomen: Soft. Nontender. Nondistended. descended testicles, left greater than right no firm nodule Musculoskeletal: No edema. Normal ROM in extremities. No bone or spine tenderness. Neuro: Speech fluent. Gait normal. No focal deficits. Rectal: Deferred RADIOLOGY/LABORATORY DATA: see HPI ASSESSMENT/PLAN: Prostate adenocarcinoma, initial PSA 15.33, biopsy Willard score 3 + 4 = 7 (grade group 2), clinical stage T2a, N0, M0, stage IIB [T1-T2, N0, M0, PSA <20, GG 2] (AJCC 8th ed.), s/p biopsy. NCCN Risk Group: Unfavorable Intermediate Risk Group Patient presents with localized unfavorable intermediate risk prostate cancer. Also with history ofdiverticulitis and abscess status post partial colectomy and colostomy approximately 1 year ago. Heis stable in terms of his GI related issues although has not had his colostomy reversed due to respiratory health issues. In terms of his prostate cancer I do feel he has diagnosis which warrants intervention with definitive treatment. We did discuss active surveillance. In terms of definitive treatment options discussed both surgical and radiation approaches in general. In terms of radiation approaches discussed bothexternal beam brachytherapy. Discussed hormonal therapy potentially. Patient expressed understanding. Recommend further staging with PSMA PET and then further discussion regarding treatment plan. Signed by: Kwasi Sandoval MD cc: GREGORIO Conner [address] Alanna [facility] [id number] * Radha Serrano RN - 10/20/2024 2:51 PM EDT Pacemaker/Defibrillator?N Previous Cancer(s)?N Previous Radiation?N Lupus/Scleroderma?N On body monitoring device?N AUA= 23 Radha Serrano RN [facility] NoteHNO ID: [id number] Author: RADHA SERRANO RN Service: ? Author Type: Registered Nurse Type: Progress Notes Filed: 10/21/2024 11:41 Note Text: Pacemaker/Defibrillator?N Previous Cancer(s)?N Previous Radiation?N Lupus/Scleroderma?N On body monitoring device?N AUA= 23 [facility] Discharge instructions Patient Education 10/01/2024 12:01:46 Hematuria, Adult Hematuria, Adult Hematuria is blood in the urine. Blood may be visible in the urine, or it may be identified with a test. This condition can be caused by infections of the bladder, urethra, kidney, or prostate. Otherpossible causes include: Kidney stones. Cancer of the urinary tract. Too much calcium in the urine. Conditions that are passed from parent to child (inherited conditions). Exercise that requires a lot of energy. Infections can usually be treated with medicine, and a kidney stone usually will pass through your urine. If neither of these is the cause of your hematuria, more tests may be needed to identify the cause of your symptoms. It is very important to tell your health care provider about any blood in your urine, even if it ispainless or the blood stops without treatment. Blood in the urine, when it happens and then stops and then happens again, can be a symptom of a very serious condition, including cancer. There is no pain in the initial stages of many urinary cancers. Follow these instructions at home: Medicines Take nqtp-scn-bvjusoj and prescription medicines only as told by your health care provider. If you were prescribed an antibiotic medicine, take it as told by your health care provider. Do notstop taking the antibiotic even if you start to feel better. Eating and drinking Drink enough fluid to keep your urine pale yellow. It is recommended that you drink 3 4 quarts (2.83.8 L) a day. If you have been diagnosed with an infection, drinking cranberry juice in addition tolarge amounts of water is recommended. Avoid caffeine, tea, and carbonated beverages. These tend to irritate the bladder. Avoid alcohol because it may irritate the prostate (in males). General instructions If you have been diagnosed with a kidney stone, follow your health care provider's instructions about straining your urine to catch the stone. Empty your bladder often. Avoid holding urine for long periods of time. If you are female: ?After a bowel movement, wipe from front to back and use each piece of toilet paper only once. ?Empty your bladder before and after sex. Pay attention to any changes in your symptoms. Tell your health care provider about any changes or any new symptoms. It is up to you to get the results of any tests. Ask your health care provider, or the department that is doing the test, when your results will be ready. Keep all follow-up visits. This is important. Contact a health care provider if: You develop back pain. You have a fever or chills. You have nausea or vomiting. Your symptoms do not improve after 3 days. Your symptoms get worse. Get help right away if: You develop severe vomiting and are unable to take medicine without vomiting. You develop severe pain in your back or abdomen even though you are taking medicine. You pass a large amount of blood in your urine. You pass blood clots in your urine. You feel very weak or like you might faint. You faint. Summary Hematuria is blood in the urine. It has many possible causes. It is very important that you tell your health care provider about any blood in your urine, even ifit is painless or the blood stops without treatment. Take ltqi-vor-ltegnwy and prescription medicines only as told by your health care provider. Drink enough fluid to keep your urine pale yellow. This information is not intended to replace advice given to you by your health care provider. Make sure you discuss any questions you have with your health care provider. Document Revised: 12/13/2020 Document Reviewed: 12/13/2020 BringShare Patient Education 2023 [employer]. Follow Up Care 09/27/2024 10:47:00 With:MELINDA SANCHEZ, Clarissa Saldivar, URL Address: [address] [place] [address]- When: Unknown [facility] [place] 06-06-2025 NotePatient Education Urology Hematuria, Adult Hematuria is blood in the urine. Blood may be visible in the urine, or it may be identified with a test. This condition can be caused by infections of the bladder, urethra, kidney, or prostate. Otherpossible causes include: ??? Kidney stones. ??? Cancer of the urinary tract. ??? Too much calcium in the urine. ??? Conditions that are passed from parent to child (inherited conditions). ??? Exercise that requires a lot of energy. Infections can usually be treated with medicine, and a kidney stone usually will pass through your urine. If neither of these is the cause of your hematuria, more tests may be needed to identify the cause of your symptoms. It is very important to tell your health care provider about any blood in your urine, even if it ispainless or the blood stops without treatment. Blood in the urine, when it happens and then stops and then happens again, can be a symptom of a very serious condition, including cancer. There is no pain in the initial stages of many urinary cancers. Follow these instructions at home: Medicines ??? Take jtjc-imz-ihqtojg and prescription medicines only as told by your health care provider. ??? If you were prescribed an antibiotic medicine, take it as told by your health care provider. Donot stop taking the antibiotic even if you start to feel better. Eating and drinking ??? Drink enough fluid to keep your urine pale yellow. It is recommended that you drink 3?4 quarts (2.8?3.8 L) a day. If you have been diagnosed with an infection, drinking cranberry juice in addition to large amounts of water is recommended. ??? Avoid caffeine, tea, and carbonated beverages. These tend to irritate the bladder. ??? Avoid alcohol because it may irritate the prostate (in males). General instructions ??? If you have been diagnosed with a kidney stone, follow your health care provider's instructionsabout straining your urine to catch the stone. ??? Empty your bladder often. Avoid holding urine for long periods of time. ??? If you are female: ? After a bowel movement, wipe from front to back and use each piece of toilet paper only once. ? Empty your bladder before and after sex. ??? Pay attention to any changes in your symptoms. Tell your health care provider about any changesor any new symptoms. ??? It is up to you to get the results of any tests. Ask your health care provider, or the department that is doing the test, when your results will be ready. ??? Keep all follow-up visits. This is important. Contact a health care provider if: ??? You develop back pain. ??? You have a fever or chills. ??? You have nausea or vomiting. ??? Your symptoms do not improve after 3 days. ??? Your symptoms get worse. Get help right away if: ??? You develop severe vomiting and are unable to take medicine without vomiting. ??? You develop severe pain in your back or abdomen even though you are taking medicine. ??? You pass a large amount of blood in your urine. ??? You pass blood clots in your urine. ??? You feel very weak or like you might faint. ??? You faint. Summary ??? Hematuria is blood in the urine. It has many possible causes. ??? It is very important that you tell your health care provider about any blood in your urine, even if it is painless or the blood stops without treatment. ??? Take ekdq-zyc-fvjohkr and prescription medicines only as told by your health care provider. ??? Drink enough fluid to keep your urine pale yellow. This information is not intended to replace advice given to you by your health care provider. Make sure you discuss any questions you have with your health care provider. Document Revised: 12/13/2020 Document Reviewed: 12/13/2020 BringShare Patient Education ? 2023 SoloLearn.[facility] 09-14-2024 Hospital Discharge instructions Patient Education 09/14/2024 16:14:02 Transrectal Ultrasound-Guided Prostate Biopsy, Care After Transrectal Ultrasound-Guided Prostate Biopsy, Care After The following information offers guidance on how to care for yourself after your procedure. Your health care provider may also give you more specific instructions. If you have problems or questions, contact your health care provider. What can I expect after the procedure? After the procedure, it is common to have: Pain and discomfort near your rectum, especially while sitting. [place]-colored urine due to small amounts of blood in your urine. A burning feeling while urinating. Blood in your stool (feces) or bleeding from your rectum. Blood in your semen. Follow these instructions at home: Medicines Take vezm-xce-uupmdgl and prescription medicines only as told by your health care provider. If you were given a sedative during your procedure, it can affect you for several hours. Do not drive or operate machinery until your health care provider says that it is safe. If you were prescribed an antibiotic medicine, take it as told by your health care provider. Do notstop using the antibiotic even if you start to feel better. Activity Return to your normal activities as told by your health care provider. Ask your health care provider what activities are safe for you. Ask your health care provider when it is okay for you to resume sexual activity. You may have to avoid lifting. Ask your health care provider how much you can safely lift. General instructions Drink enough fluid to keep your urine pale yellow. Watch your urine, stool, and semen for new or increased bleeding. Keep all follow-up visits. This is important. Contact a health care provider if: You have any of the following: ?Blood clots in your urine or stool. ?Blood in your urine more than 2 weeks after the procedure. ?Blood in your semen more than 2 months after the procedure. ?New or increased bleeding in your urine, stool, or semen. ?Severe pain in your abdomen. Your urine smells bad or unusual. You have trouble urinating. Your lower abdomen feels firm. You have problems getting an erection. You have nausea or you vomit. Get help right away if: You have a fever or chills. This could be a sign of infection. You have bright red urine. You have severe pain that does not get better with medicine. You cannot urinate. Summary After this procedure, it is common to have pain and discomfort around your rectum, especially whilesitting. You may have blood in your urine and stool after the procedure. It is common to have blood in your semen after this procedure. Get help right away if you have a fever or chills. This could be a sign of infection. This information is not intended to replace advice given to you by your health care provider. Make sure you discuss any questions you have with your health care provider. Document Revised: 10/08/2021 Document Reviewed: 10/08/2021 Elsevier Patient Education 2023 SoloLearn. Follow Up Care 08/24/2024 15:05:54 With:MELINDA SANCHEZ, Clarissa Saldivar, URL Address: [facility] [address] [place] [address]- When: Unknown [facility] [place] 05-20-2025 NotePatient Education Oncology Transrectal Ultrasound-Guided Prostate Biopsy, Care After The following information offers guidance on how to care for yourself after your procedure. Your health care provider may also give you more specific instructions. If you have problems or questions, contact your health care provider. What can I expect after the procedure? After the procedure, it is common to have: ??? Pain and discomfort near your rectum, especially while sitting. ??? [place]-colored urine due to small amounts of blood in your urine. ??? A burning feeling while urinating. ??? Blood in your stool (feces) or bleeding from your rectum. ??? Blood in your semen. Follow these instructions at home: Medicines ??? Take xtyl-ycr-wovilly and prescription medicines only as told by your health care provider. ??? If you were given a sedative during your procedure, it can affect you for several hours. Do notdrive or operate machinery until your health care provider says that it is safe. ??? If you were prescribed an antibiotic medicine, take it as told by your health care provider. Donot stop using the antibiotic even if you start to feel better. Activity ??? Return to your normal activities as told by your health care provider. Ask your health care provider what activities are safe for you. ??? Ask your health care provider when it is okay for you to resume sexual activity. ??? You may have to avoid lifting. Ask your health care provider how much you can safely lift. General instructions ??? Drink enough fluid to keep your urine pale yellow. ??? Watch your urine, stool, and semen for new or increased bleeding. ??? Keep all follow-up visits. This is important. Contact a health care provider if: ??? You have any of the following: ? Blood clots in your urine or stool. ? Blood in your urine more than 2 weeks after the procedure. ? Blood in your semen more than 2 months after the procedure. ? New or increased bleeding in your urine, stool, or semen. ? Severe pain in your abdomen. ??? Your urine smells bad or unusual. ??? You have trouble urinating. ??? Your lower abdomen feels firm. ??? You have problems getting an erection. ??? You have nausea or you vomit. Get help right away if: ??? You have a fever or chills. This could be a sign of infection. ??? You have bright red urine. ??? You have severe pain that does not get better with medicine. ??? You cannot urinate. Summary ??? After this procedure, it is common to have pain and discomfort around your rectum, especially while sitting. ??? You may have blood in your urine and stool after the procedure. ??? It is common to have blood in your semen after this procedure. ??? Get help right away if you have a fever or chills. This could be a sign of infection. This information is not intended to replace advice given to you by your health care provider. Make sure you discuss any questions you have with your health care provider. Document Revised: 10/08/2021 Document Reviewed: 10/08/2021 ElseTrainfox Patient Education ? 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 HPI Staff 64 yr old male referred by Yissel Arevalo CNP for Elevated PSA. Patient is c/o of swollen left testicle that comes and goes. PSA done 08/10/24 - 13.0 & 10.2% Patient gets up 2-3 3 times per night, but he gets up due to his colostomy. Denies blood in the urine. He gets an urge with running water. Stream is on weak side. History of Present Illness Tests reviewed: reviewed UA, referral records, PSA I have reviewed the previous health record information and history for this patient from external providers. I have reviewed and verified the staff HPI to be accurate for this encounter. Review of Systems PHQ Score Initial Depression Screen Score: 1 SCORE ROS - Provider Constitutional: denies weight loss, denies hot flashes. Eyes: denies eye problems. Gastrointestinal: denies nausea, denies vomiting. Cardiovascular: denies chest pain or angina. Integumentary: no dryness Musculoskeletal: denies musculoskeletal symptoms. ENMT: denies otolaryngeal symptoms. Respiratory: no shortness of breath. Heme/Lymph: denies easy bleeding tendency, denies easy bruising tendency. Psychiatric: no confusion, no anxiety. Genitourinary: See HPI. Physical Exam Vitals & Measurements HR: 87(Peripheral) RR: 20 BP: 142/91 HT: 175 cm HT: 69 in WT: 79 kg WT: 174.165 lb BMI: 25.8 General Appearance: alert, no distress, well nourished, well developed male. Prostate: normal prostate, estimated weight 35 gms, no hard nodule observed. Assessment/Plan Cipriano is a 64 yo male new pt referred by Yissel Arevalo NP for elevated PSA. 1. Elevated PSA (R97.20: Elevated prostate specific antigen [PSA]) PSA 08/09/24 - 13 & 10.2% (only level on record). No known fam hx of pros ca. JEANETTE: ~35g, benign Not taking any BPH meds. Good stream. Reports post-void dribbling. Has hx of one UTI. Feels he has increased urinary frequency since he had a colostomy placed a year ago. UA today neg for infection. Advised pt an elevated PSA could indicate prostate cancer, prostate infection, prostate inflammationwithout infection, prostate manipulation, or benign prostate enlargement (BPH). Strongly recommended TRUS/bx. Risks/benefits discussed. Pt agrees to proceed. -Will schedule TRUS of Prostate with Biopsy. The procedural risks, benefits, details, and treatmentalternatives have been discussed with the patient. These include minimal to severe bleeding, infection, blood in the semen, inability to urinate, and severe infection requiring hospitalization and IVantibiotics, among others. Full informed consent has been obtained. Will order Local anesthesia. 2. Microscopic hematuria (R31.29: Other microscopic hematuria) CT AP w con 11/26/23 [facility] - No abnormalities. UA today shows small blood. Denies ever experiencing gross hematuria. Discussed hematuria workup includes upper urinary tract imaging (already had), evaluation of the urinary cells with urine cytology and possible a FISH test, and a cystoscopy to rule out lower urinary tract pathology. Pt aware that a distinct etiology of the hematuria may not be clear upon conclusion of the workup. The rationalefor this workup has been discussed, and all questions have been answered. -Urine sample to be sent for cytology -Will schedule cystoscopy. The risks and benefits for cystoscopy have been discussed. The risks include bleeding, infection, and irritation of the bladder and urinary channel, among others. The patient, after being informed of procedural details and after questions have been answered, wishes to proceed. Full informed consent has been obtained. Will order Local anesthesia. 3. Testicular swelling, left (N50.89: Other specified disorders of the male genital organs) Reports left testicle fluctuates in size. Notices especially after showering. Follow-up With When Contact Information MELINDA SANCHEZ, Clarissa Saldivar, URL [facility] [address] [place] [address]- [phone] Additional Instructions: sched cysto, TRUS/bx Patient Education Transrectal Ultrasound-Guided Prostate Biopsy, Care After Transrectal Ultrasound-Guided Prostate Biopsy Prostate Cancer Screening IBecky, personally scribed for Dr. Lawrence on 08/23/2024 15:27:33. . Documentation recorded by the scribeBecky, accurately reflects the services(s) I performed and decisions made by me. Authenticated by Dr. Lawrence on 08/23/2024 15:30:47. Problem List/Past Medical History Ongoing BPH with elevated PSA Diverticulitis Elevated PSA Microscopic hematuria Testicular swelling, left Historical No qualifying data Procedure/Surgical History Colonoscopy, Colostomy, History of hernia repair. Medications amLODIPine 10 mg Tab, 10 mg= 1 tab(s), Oral, Daily Colace, See Instructions Allergies No Known Medication Allergies Social History Alcohol - Denies Alcohol Use, (more content not included)...[facility]:Result Comment: Electronically Signed By: Clarissa LAWRENCE MD\.br\Date and Time Signed: 08/23/24 15:30 EDT\.br\Electronically Co-Signed By: Becky Cazares\.br\Date and Time Co-Signed: 08/23/24 15:28 EDT 04-28-2025 NotePatient Education Oncology Transrectal Ultrasound-Guided Prostate Biopsy, Care After The following information offers guidance on how to care for yourself after your procedure. Your health care provider may also give you more specific instructions. If you have problems or questions, contact your health care provider. What can I expect after the procedure? After the procedure, it is common to have: ??? Pain and discomfort near your rectum, especially while sitting. ??? [place]-colored urine due to small amounts of blood in your urine. ??? A burning feeling while urinating. ??? Blood in your stool (feces) or bleeding from your rectum. ??? Blood in your semen. Follow these instructions at home: Medicines ??? Take qedp-yyp-wbepwoy and prescription medicines only as told by your health care provider. ??? If you were given a sedative during your procedure, it can affect you for several hours. Do notdrive or operate machinery until your health care provider says that it is safe. ??? If you were prescribed an antibiotic medicine, take it as told by your health care provider. Donot stop using the antibiotic even if you start to feel better. Activity ??? Return to your normal activities as told by your health care provider. Ask your health care provider what activities are safe for you. ??? Ask your health care provider when it is okay for you to resume sexual activity. ??? You may have to avoid lifting. Ask your health care provider how much you can safely lift. General instructions ??? Drink enough fluid to keep your urine pale yellow. ??? Watch your urine, stool, and semen for new or increased bleeding. ??? Keep all follow-up visits. This is important. Contact a health care provider if: ??? You have any of the following: ? Blood clots in your urine or stool. ? Blood in your urine more than 2 weeks after the procedure. ? Blood in your semen more than 2 months after the procedure. ? New or increased bleeding in your urine, stool, or semen. ? Severe pain in your abdomen. ??? Your urine smells bad or unusual. ??? You have trouble urinating. ??? Your lower abdomen feels firm. ??? You have problems getting an erection. ??? You have nausea or you vomit. Get help right away if: ??? You have a fever or chills. This could be a sign of infection. ??? You have bright red urine. ??? You have severe pain that does not get better with medicine. ??? You cannot urinate. Summary ??? After this procedure, it is common to have pain and discomfort around your rectum, especially while sitting. ??? You may have blood in your urine and stool after the procedure. ??? It is common to have blood in your semen after this procedure. ??? Get help right away if you have a fever or chills. This could be a sign of infection. This information is not intended to replace advice given to you by your health care provider. Make sure you discuss any questions you have with your health care provider. Document Revised: 10/08/2021 Document Reviewed: 10/08/2021 BringShare Patient Education ? 2023 SoloLearn. Transrectal Ultrasound-Guided Prostate Biopsy A transrectal ultrasound-guided prostate biopsy is a procedure to remove samples of prostate tissuefor testing. The prostate is a walnut-sized gland that is located below the bladder and in front ofthe rectum. During this procedure, a small device (probe) is lubricated and put inside the rectum. The probe sends out sound waves that make a picture of the prostate and surrounding tissues (transrectal ultrasound). The images are used to help guide the process of removing the samples. The samplesare taken to a lab to be checked for prostate cancer. This procedure is usually done to evaluate the prostate gland of men who have raised (elevated) levels of prostate-specific antigen (PSA), which can be a sign of prostate cancer or prostate enlargement related to aging (benign prostatic hyperplasia, or BPH). Tell a health care provider about: ??? Any allergies you have. ??? All medicines you are taking, including vitamins, herbs, eye drops, creams, and npcp-[id number] medicines. ??? Any problems you or family members have had with anesthetic medicines. ??? Any bleeding problems you have. ??? Any surgeries you have had. ??? Any medical conditions you have. ??? Any prostate infections you have had. What are the risks? Generally, this is a safe procedure. However, problems may occur, including: ??? Prostate infection. ??? Bleeding from the rectum. ??? Blood in the urine. ??? Allergic reactions to medicines. ??? Damage to surrounding structures such as blood vessels, organs, or muscles. ??? Difficulty passing urine. ??? Nerve damage. This is usually temporary. What happens before the procedure? Medicines Ask your health care provider about: ??? Changing or stopping your regular medicines. This is especial (more content not included)...[facility]04-08-2025 History of Present illness Narrative* Yissel Arevalo NP - 08/03/2024 3:07 PM EDTAssociated Problem(s): Encounter for subsequent annual wellness visit (AWV) in Medicare patient Reviewed Ht/Wt/BMI Recommend eye exam yearly Recommend dental exams twice a year Balance work/leisure activities Exercises is recommended most days of the week (appropriate as chronic conditions allow) Follow up yearly and prn * SHALINI RAMIRES - 08/03/2024 2:00 PM EDT Pt needs a refill on his amlodipine * Yissel Arevalo NP - 08/03/2024 2:00 PM EDT Images from the original note were not [...] Hospitalizations in the last year:ostomy Specialist: surgeon rosa elena) HCPOA/Living Will: none Concerns: SUBJECTIVE: MEDICATIONS: Current [...] prn Other Visit Diagnoses Colostomy status (CMS/HCC) * Yissel Arevalo NP - 08/03/2024 7:05 AM EDTAssociated Problem(s): Primary hypertension (CMS/HCC) Please check blood pressure daily and record DASH diet Limit caffeine Take medication as directed Contact office if chest pain, pressure, dizziness, shortness of breath, swelling legs Recommend slow position changes Current meds: amlodipine documented in this [facility]04-08-2025 Instructions* Patient Instructions* Yissel Arevalo NP - 08/03/2024 2:00 PM EDT Please get labs completed Eye exam: please call to schedule documented in this encounterMercy Hospital [id number] History of Present illness Narrative* Frida Dorman NP - 05/03/2024 11:07 AM ESTAssociated Problem(s): Acute non-recurrent frontal sinusitis Cough/Runny nose/Headache/X1+ month. Did not have ostomy reversal due to having cold like symptoms on day of surgery. Pt states surgery was concerned he would blow sutures out. Denies shortness of breath or chest pain. Will treat with Augmentin and steroids today since symptoms have been ongoing. * Frida Dorman NP - 05/03/2024 10:30 AM EST Images from the original note were not [...] Neurological: Negative for dizziness, tremors, syncope, weakness, light- headedness and headaches. Psychiatric/Behavioral: Negative for decreased concentration and suicidal ideas. The patient is notnervous/anxious. Hematological: Does not bruise/bleed easily. Endocrine: Negative [...] symptoms have been ongoing. documented in this [facility]01-06-2025 Instructions* Patient Instructions* Frida Dorman NP - 05/03/2024 10:30 AM [...] THE NEAREST EMERGENCY DEPARTMENT. documented in this [facility]10-16-2024 History of Present illness Narrative* Frida Dorman NP - 02/11/2024 8:50 AM EDTAssociated Problem(s): Viral URI Does report having sinus congestion, runny nose and post nasal drip for several days. Is concerned that this may interfere with surgery. Discussed likely viral etiology. Recommended pt discuss this with provider at presurgical appointment. Recommended Flonase and OTC antihistamines. Advised against vitamins or supplements, or initiation of new medications prior to surgery without surgeon approval first. * Frida Dorman NP - 02/11/2024 8:46 AM EDTAssociated Problem(s): Pre- operative clearance Is here today for presurgical clearance for Reversal of colovesical fistula. Is having presurgical labwork done tomorrow. Did not bring paperwork to today from surgeons office. Pt has history of HTN. Well controlled on Amlodipine. Will provide medical clearance once pre-surgical testing results are received. * Frida Dorman NP - 02/11/2024 8:45 AM EDTAssociated Problem(s): Primary hypertension (CMS/HCC) Currently taking amlodipine 10mg Does not check BP at home; BP good today in office. Denies orthostatic changes, dizziness, cough, shortness of breath, swelling in extremities. Continue current regimen. Given BP log, advised pt to record BP and bring log back with them to next visit. * Friad Dorman NP - 02/05/2024 2:30 PM EDT Images from the original note were not [...] Advised against vitamins or other new medications priorto surgery without surgeon approval first. Review of [...] Neurological: Negative for dizziness, tremors, syncope, weakness, light- headedness and headaches. Psychiatric/Behavioral: Negative for decreased concentration and suicidal ideas. The patient is notnervous/anxious. Hematological: Does not bruise/bleed easily. Endocrine: Negative [...] testing results are received. documented in this encounterMercy Hospital [id number] Instructions* Patient Instructions* Chitra Mensah RN - 02/06/2024 10:45 AM EDT Your surgery/procedure is scheduled at [facility] on 02/12/2024 at 730 am Arrival Time 530 am [facility] Address: [address] [place] [address]. [place] [address] [address] in [address] Parking lot located on [facility]. Report to the Entrance B. Check in at the information desk the surgery. The waiting room located on the second floor. If you have any questions prior to surgery, please call Pre-Admission Clinic at [phone] between 7:30 am and 4:30 pm Friday through Friday. If you have questions the morning of surgery, please call the Pre-op Department at [phone]. Notify your SURGEON if you develop any [...] specifically instructed by your surgeon to hold. STOPtaking all herbal products/teas one week prior to [...] piercings ,hair extensions that contain metal, nail tristanian, make-up, and contact lens. You may brush [...] items and leave them in the car untilyou are taken to your room after surgery. [...] following some types of surgeries involving the eyes,ears, sinuses and throat. Always follow your doctor's [...] RIGHTS AND RESPONSIBILITIES As a patient at [facility], you have the right to: Receive medical care and be informed of who is taking care of you Be treated with dignity and respect Have a family member/investment representative of choice and your physician notified of your admission Receive information and actively participate in decisions about your care and treatment Refuse care, treatment and services Decide who may provide your support and speak for you Access gnosticist and spiritual services Participate in ethical issues [...] of hospital charges and payment methods Patient/patient investment representative responsibilities are to: Provide information about [...] Germs live on your skin. This special soapwill help lower the amount of germs so [...] skin to hard. Be sure to wash thearea of your surgery very well. If showering, [...] surgery in clean clothes. documented in this encounterThe [facility]10-[facility]24 Instructions* Patient Instructions* Frida Dorman NP - 02/05/2024 2:30 PM [...] THE NEAREST EMERGENCY DEPARTMENT. documented in this encounterMercy Hospital [id number] History of Present illness Narrative* Abdirashid Boss MD - 01/27/2024 11:30 AM EDT Assessment: 1. Colostomy status, here to discuss [...] hernia-ventral hernia repair. Risks, benefit, treatment alternatives andconsequences of undergoing surgery were discussed with the patient. We discussed the risk of havingpostoperative bleeding or an anastomotic leak requiring an [...] complications include but not limited to pneumonia, respiratoryfailure, cardiac complications such as heart attack or congestive heart failure, urinary infection,renal failure, PE-DVT, stroke among others. Questions were [...] polyps, biopsy: Tubular adenoma and hyperplastic polyp. COLECTOMY SIGMOID (07/20/2023): Procedure Date: 07/20/2023 Pre-Operative [...] Parastomal hernia Perforated bowel (CMS-HCC) 07/19/2023 Peritonitis (CMS-HCC) Umbilical hernia Past Surgical History: Procedure Laterality Date COLECTOMY SIGMOID N/A 07/20/2023 Performed by Evan Louis MD at [facility] COLONOSCOPY DIAGNOSTIC / PER ANUS AND PER COLOSTOMY N/A 01/09/2024 Performed by Abdirashid Boss MD at [facility] HERNIA REPAIR x3 Allergies: No Known Allergies [...] by mouth in the morning and 2 tablets(17.2 mg total) before bedtime., Disp: , Rfl: [...] Resource Strain: Medium Risk (03/27/2023) Received from [facility] Overall Financial Resource Strain (CARDIA) Difficulty of Paying Living Expenses: Somewhat hard Food Insecurity: No Food Insecurity (12/26/2023) Hunger Screening Food Insecurity - Worry: Never True Food Insecurity - Inability: Never True Transportation Needs: No Transportation Needs (07/20/2023) PRAPARE - Transportation Lack of Transportation (Medical): No Lack of Transportation (Non-Medical): No Physical Activity: Insufficiently Active (03/27/2023) Received from [facility] Exercise Vital Sign Days of Exercise per Week: 2 days Minutes of Exercise per Session: 20 min Stress: No Stress Concern Present (03/27/2023) Received from [facility] [place] of Occupational Health - Occupational Stress Questionnaire Feeling of Stress : Only a little Social Connections: Moderately Integrated (03/27/2023) Received from [facility] Social Connection and Isolation Panel [NHANES] Frequency of Communication with Friends and Family: Twice a week Frequency of Social Gatherings with Friends and Family: Twice a week Attends Mu-Ism Services: 1 to 4 times per year [...] was examined in the presence of a records management analyst This note was created with the assistance [...] of ABDIRASHID BOSS MD by Ivon Vera (mari). Ivon Vera 01/27/2024 11:40 AM Provider Statement I, Abdirashid Boss MD, personally performed the services described in the documentation as scribed byIvon Vera in my presence, and it is both accurate and complete. Abdirashid Boss MD, MS, FACS Board Certified in the Colon & Rectal Surgery Board Certified in General Surgery Minimally Invasive Laparoscopic and Robotic Surgery [address] / [address] [address] Office: [phone] [facility] Office: [phone] [email or web address] documented in this encounterThe [facility] Hospital08-30-2024 Instructions* Patient Instructions* Mayelin Foster RN - 12/26/2023 10:45 AM EDT Your surgery/procedure is scheduled at [facility] on 01/08 at 12:30 Arrival Time 10:30 [facility] Address: [address] [place] [address] in [address]1 Parking lot located on [facility]. Report to the Entrance B. Check in at the information desk the surgery. The waiting room located on the second floor. If you have any questions prior to surgery, please call Pre-Admission Clinic at [phone] between 7:30 am and 4:30 pm Friday through Friday. If you have questions the morning of surgery, please call the Pre-op Department at [phone]. Notify your SURGEON if you develop any [...] specifically instructed by your surgeon to hold. STOPtaking all herbal products/teas one week prior to your surgery. Marijuana: Stop marijuana 72 hours prior to surgery, stop CBD oil 48 hours prior to surgery. If you have been given bowel prep instructions by your surgeon, please call the surgeon's office with any questions about these instructions. What do I do the day of Surgery? FOLLOW DIET AND BOWEL PREP PER DR MACY perry with an antibacterial soap the morning [...] piercings ,hair extensions that contain metal, nail tristanian, make-up, and contact lens. You may brush [...] items and leave them in the car untilyou are taken to your room after surgery. [...] following some types of surgeries involving the eyes,ears, sinuses and throat. Always follow your doctor's [...] RIGHTS AND RESPONSIBILITIES As a patient at [facility], you have the right to: Receive medical care and be informed of who is taking care of you Be treated with dignity and respect Have a family member/investment representative of choice and your physician notified of your admission Receive information and actively participate in decisions about your care and treatment Refuse care, treatment and services Decide who may provide your support and speak for you Access gnosticist and spiritual services Participate in ethical issues [...] of hospital charges and payment methods Patient/patient investment representative responsibilities are to: Provide information about health status to facilitate care, treatment and services Follow the treatment, plan, keep appointments and speak up when you do not understand the plan Respect the rights of other patients and healthcare personnel Follow organizational rules and regulations that support quality care and a safe environment Fulfill financial obligations as promptly as possible documented in this encounterThe [facility] Hospital07-09-2024 History of Present illness Narrative* Abdirashid Boss MD - 11/04/2023 1:30 PM EDT Assessment: 1. Colostomy status, here to discuss [...] the stoma site. Was previously going to [facility] in [place]. He had a perforated diverticulitis for which [...] 07/20/2023 Performed by Evan Louis MD at [facility] HERNIA REPAIR Xs 2 Allergies: No [...] Resource Strain: Medium Risk (03/27/2023) [facility] Overall Financial Resource Strain (CARDIA) Difficulty of Paying Living Expenses: Somewhat hard Food Insecurity: No Food Insecurity (07/20/2023) Hunger Screening Food Insecurity - Worry: Never True Food Insecurity - Inability: Never True Transportation Needs: No Transportation Needs (07/20/2023) PRAPARE - Transportation Lack of Transportation (Medical): No Lack of Transportation (Non-Medical): No Physical Activity: Insufficiently Active (03/27/2023) Received from [facility] Exercise Vital Sign Days of Exercise per Week: 2 days Minutes of Exercise per Session: 20 min Stress: No Stress Concern Present (03/27/2023) Received from [facility] [place] of Occupational Health - Occupational Stress Questionnaire Feeling of Stress : Only a little Social Connections: Moderately Integrated (03/27/2023) Received from [facility] Social Connection and Isolation Panel [NHANES] Frequency of Communication with Friends and Family: Twice a week Frequency of Social Gatherings with Friends and Family: Twice a week Attends Mu-Ism Services: 1 to 4 times per year [...] was examined in the presence of a records management analyst This note was created with the assistance [...] services described in the documentation as scribed byIvon Vera in my presence, and it is both accurate and complete. Abdirashid Boss MD, MS, FACS Board Certified in the Colon & Rectal Surgery Board Certified in General Surgery Minimally Invasive Laparoscopic and Robotic Surgery [facility] & [address] / [place] [address] Office: [phone] [facility] Office: [phone] [email or web address] documented in this encounterThe [facility] Hospital06-20-2024 History of Present illness Narrative* Beatris Juan - 10/16/2023 3:30 PM EDT Images from the original note were not included. SUBJECTIVE: Chief complaint: Post operative follow up, evaluation for stoma takedown Cipriano Arzate is a 63 year old male status post exploratory laparotomy, sigmoidectomy with end colostomy (Kathy procedure) done on 07/20/2023 for acute perforated sigmoid diverticulitis. Post operative period has been uncomplicated. He reports colostomy has remained functional. Denies abd pain, na usea, vomiting. Has tolerated a regular diet. Is eager to have stoma taken down. OBJECTIVE: Patient Active Problem List Diagnosis Perforated bowel ([facility]) No Known Allergies There were no vitals [...] brown stool output. Abd soft and non-tender, non- distended, midline incision healed ASSESSMENT: Cipriano Arzate is [...] evaluation of stoma takedown. Beatris Grullon, MS4 * Evan Louis MD - 10/16/2023 3:30 PM EDT Images from the original note were not [...] the operation. May need a very low anteriorresection. I will for 2 my partner who is better trained in this area for ostomy reversal. If he needs help with any hernia repair at that time I am happy to come in to assist. Evan Louis MD [facility] General Surgery Minimally Invasive Robotic Surgery [phone] Please feel free to call with questions at anytime. documented in this encounterThe [facility] Hospital04-11-2024 History of Present illness Narrative* MARCO A Yu - 08/07/2023 12:45 PM EDT Subjective: Cipriano rAzate is a 63 y.o. male presented to [...] without distention. No tenderness noted with palpation. Burton in place. Intact. Stoma pink. With brown liquid stool noted inside the bag. Lower extremities no calf tenderness All brooke were removed. Steri-Strips applied. Patient tolerated well. No complication. Assessment: Cipriano Arzate is a 63 y.o.male status post exploratory laparotomy, sigmoidectomy with end colostomy,(Kathy procedure) done for acute perforated sigmoid diverticulitis. Patient doing fairly well. Nocomplication Plan: 1) patient was encouraged to increase level of activity is as tolerated 2) pathology report was discussed with patient in details. All questions and concerns were addressed with patient during the visit. 3) patient was encouraged to call office for any further questions or concerns 4) we will schedule appointment for patient to see for discussion of possible stoma takedown Yovany Wesley PA-C [facility] General Surgery [address] [place] [address] MARCO A Yu 08/07/23 1302 documented in this encounterThe Jewish Hospital04-01-2024 Miscellaneous Notes* Telephone Encounter - Suze Matthew CNA - 07/28/2023 3:05 PM EDT HOME NURSE ABRAHAN CALLED IN TO NOTIFY US THAT SHE IS SEEING PATIENT FOR THE FIRST TIME TODAY. HE WAS ASKING ABOUT A POSSIBLE REFILL ON PAIN MEDICATION AND PATIENT IS COMPLAINING OF NUMBNESS IN HIS HANDS, MOSTLY AT NIGHT. WILL SEND MESSAGE TO DR. HOFF SINCE DR. LOUIS IS OUT. CALL HOME NURSE RENE BACK [phone] PER KAVYA: Can he take just Tylenol and Motrin, Needs to see pcp for hand SPOKE TO GUERO LÓPEZ, VERBALIZED UNDERSTANDING, SHE ALSO IS GOING TO SIZE PATIENT AND ORDER HIS OSTOMY SUPPLIES documented in this encounterThe [facility] Hospital04-01-2024 Telephone encounter Note* Telephone Encounter - uSze Matthew CNA - 07/28/2023 3:05 PM EDT HOME NURSE ABRAHAN CALLED IN TO NOTIFY US THAT SHE IS SEEING PATIENT FOR THE FIRST TIME TODAY. HE WAS ASKING ABOUT A POSSIBLE REFILL ON PAIN MEDICATION AND PATIENT IS COMPLAINING OF NUMBNESS IN HIS HANDS, MOSTLY AT NIGHT. WILL SEND MESSAGE TO DR. HOFF SINCE DR. LOUIS IS OUT. CALL HOME NURSE RENE BACK [phone] PER KAVYA: Can he take just Tylenol and Motrin, Needs to see pcp for hand SPOKE TO GUERO LÓPEZ, VERBALIZED UNDERSTANDING, SHE ALSO IS GOING TO SIZE PATIENT AND ORDER HIS OSTOMY SUPPLIES [facility]04-01-2024 Miscellaneous Notes* Telephone Encounter - Suze Matthew CNA - 07/28/2023 12:52 PM EDT Patient called and left us a voicemail and he was very frustrated because he was under the impression someone was going to be out to his house right after he was discahrged, he also stated he was noteducated in the hospital about his bags. Patient said he called all the numbers he was given and got no call back. He did end up calling [email or web address], he said they are coming today. I called Abrahan stephens did confirm they will be out there today 4 in the afternoon to assist the patient. documented in this encounterThe Jewish Hospital04-01-2024 Telephone encounter Note* Telephone Encounter - Suze Matthew CNA - 07/28/2023 12:52 PM EDT Patient called and left us a voicemail and he was very frustrated because he was under the impression someone was going to be out to his house right after he was discahrged, he also stated he was noteducated in the hospital about his bags. Patient said he called all the numbers he was given and got no call back. He did end up calling [email or web address], he said they are coming today. I called Abrahan stephens did confirm they will be out there today 4 in the afternoon to assist the patient. [facility] HospitalEvaluation + [facility] Future Appointments Appointment Date:09/27/2024 01:15:00 PM Scheduled Provider:Clarissa LAWRENCE MD Location:[facility] Appointment Type:URO Office Visit Diagnostic Tests Pending * Urine Cytology ([facility]) 08/23/24 [facility] Evaluation + Plan note Future Appointments Appointment Date:09/27/2024 01:15:00 PM Scheduled Provider:Clarissa LAWRENCE MD Location:[facility] Appointment Type:URO Office Visit [facility] Evaluation + Plan note Future Appointments Appointment Date:09/27/2024 01:15:00 PM Scheduled Provider:Clarissa LAWRENCE MD Location:[facility] Appointment Type:URO Office Visit Diagnostic Tests Pending * Prostate Histology ([facility]) 09/15/24 [facility] Evaluation + Plan note Future Appointments Appointment Date:10/01/2024 11:00:00 AM Scheduled Provider:Clarissa LAWRENCE MD Location:[facility] Appointment Type:URO Office Visit [facility] Plan note Future Appointments Appointment Date:05/09/2025 01:30:00 PM Scheduled Provider: Location:[facility] Appointment Type:URO Nurse Visit Appointment Date:05/16/2025 01:45:00 PM Scheduled Provider:Clarissa LAWRENCE MD Location:[facility] Appointment Type:URO Office Visit Diagnostic Tests Pending * PSA Total 04/28/25 [facility] evaluation note* Diagnosis Primary hypertension (CMS/HCC)- Primary Unspecified essential hypertension Encounter for Medicare annual wellness exam Pain, dental History of prediabetes Primary hypertension ([facility]/HCC)- Primary Unspecified essential hypertension Perforation of sigmoid colon due to diverticulitis Status post Kathy procedure ([facility]) Colostomy in place ([facility]/HCC) Colostomy status Hospital discharge follow-up Other [...] Pre-operative clearance Unspecified pre-operative examination Primary hypertension ([facility]/HCC) Unspecified essential hypertension documented in this encounter [facility] HealthcareEvaluation [facility]* Diagnosis Primary hypertension (CMS/HCC)- Primary [...] hypertension (CMS/HCC) Unspecified essential hypertension Primary hypertension ([facility]/HCC) Unspecified essential hypertension documented in this encounter [facility]Evaluation [facility]* Diagnosis Primary hypertension (CMS/HCC)- Primary Unspecified essential hypertension Encounter for Medicare annual wellness exam Pain, dental History of prediabetes Primary hypertension (CMS/HCC)- Primary Unspecified essential hypertension Perforation of sigmoid colon due to diverticulitis Status post Kathy procedure (CMS/HCC) Colostomy in place (CMS/HCC) Colostomy status Hospital discharge follow-up Other follow-up examination Primary hypertension (CMS/HCC)- Primary Unspecified essential hypertension Colostomy in place ([facility]/HCC) Colostomy status Numbness and tingling in left hand Disturbance of skin sensation Cystitis- Primary Unspecified cystitis Chronic idiopathic constipation Unspecified constipation Primary hypertension (CMS/HCC)- Primary Unspecified essential hypertension Colostomy in place (CMS/HCC) Colostomy status Colostomy in place ([facility]/HCC)- Primary Colostomy status Chronic idiopathic constipation Unspecified constipation Viral URI Acute upper respiratory infections of unspecified site Pre-operative clearance Unspecified pre-operative examination Primary hypertension (CMS/HCC) Unspecified essential hypertension Upper respiratory tract infection, unspecified type- Primary Viral URI Acute upper respiratory infections of unspecified site Acute non-recurrent frontal sinusitis documented in this encounter [facility]* Diagnosis Perforated bowel (CMS-HCC)- Primary documented in this encounter [facility]* Diagnosis Parastomal hernia without obstruction or gangrene- Primary documented in this encounter [facility]* Diagnosis Colostomy status (CMS-HCC)- Primary Colostomy status Perforated bowel (CMS-HCC) Parastomal hernia without obstruction or gangrene History of peritonitis documented in this encounter [facility]* Diagnosis Diverticulitis- Primary Diverticulitis of colon (without mention of hemorrhage) documented in this encounter [facility]* Diagnosis Pre-op testing- Primary Unspecified pre-operative examination documented in this encounter [facility]* Diagnosis Preop testing- Primary Unspecified pre-operative examination documented in this encounter [facility]* Diagnosis Colostomy status (CMS-HCC)- Primary Colostomy status History of peritonitis Parastomal hernia without obstruction or gangrene Perforated bowel (CMS-HCC) documented in this encounter [facility]* Diagnosis Primary hypertension (CMS/HCC)- Primary [...] History of prediabetes documented in this encounter [facility] HealthcareEvaluation note* Diagnosis Primary hypertension (CMS/HCC)- Primary [...] (AWV) in Medicare patient- Primary Colostomy status (/HCC) Colostomy status Primary hypertension (CMS/HCC) Unspecified essential hypertension Prostate cancer screening Special screening for malignant neoplasm of prostate History of prediabetes Elevated PSA- Primary Elevated prostate specific antigen (PSA) Asymptomatic microscopic hematuria documented in this encounter [facility] HealthcareEvaluation note* Diagnosis Primary hypertension (CMS/HCC)- Primary Unspecified essential hypertension Encounter for Medicare annual wellness exam Pain, dental History of prediabetes Primary hypertension (CMS/HCC)- Primary Unspecified essential hypertension Perforation of sigmoid colon due to diverticulitis Status post Kathy procedure (/HCC) Colostomy in place (/HCC) Colostomy status Hospital discharge follow-up Other follow-up [...] PSA- Primary Elevated prostate specific antigen (PSA) documented in this encounter [facility] HealthcareEvaluation note* Diagnosis Malignant neoplasm of prostate (HCC)- Primary Malignant neoplasm of prostate [facility] Primary hypertension- Primary Unspecified essential hypertension Encounter for Medicare annual wellness exam Pain, dental History of prediabetes Primary hypertension- Primary Unspecified essential hypertension Perforation of sigmoid colon due to diverticulitis Status post Kathy procedure (HCC) Colostomy in place (HCC) Colostomy status Hospital discharge follow-up Other follow-up examination Primary hypertension- Primary Unspecified essential hypertension Colostomy in place (HCC) Colostomy status Numbness and tingling in left hand Disturbance of skin sensation Cystitis- Primary Unspecified cystitis Chronic idiopathic constipation Unspecified constipation Primary hypertension- Primary Unspecified essential hypertension Colostomy in place (HCC) Colostomy status Colostomy in place (HCC)- Primary Colostomy status Chronic idiopathic constipation Unspecified constipation Viral URI Acute upper respiratory infections of unspecified site Pre-operative clearance Unspecified pre-operative examination Primary hypertension Unspecified essential hypertension Encounter for subsequent annual wellness visit (AWV) in Medicare patient- Primary Colostomy status (HCC) Colostomy status Primary hypertension Unspecified essential hypertension Prostate cancer screening Special screening for malignant neoplasm of prostate History of prediabetes Primary hypertension- Primary Unspecified essential hypertension BPH with elevated PSA Adenocarcinoma of prostate (HCC) Malignant neoplasm of prostate Colostomy in place (HCC) [facility]ostomy [facility] Malignant neoplasm of prostate (HCC) Malignant neoplasm of prostate [facility] Diagnosis Malignant neoplasm of prostate (HCC)- Primary Malignant neoplasm of prostate [facility] Diagnosis Colostomy status (CMS-HCC)- Primary Colostomy status documented in this encounter [facility]* Diagnosis Malignant neoplasm of prostate (HCC)- Primary Malignant neoplasm of prostate [facility] Diagnosis Malignant neoplasm of prostate (HCC)- Primary Malignant neoplasm of prostate [facility] Diagnosis Malignant neoplasm of prostate (HCC)- Primary Malignant neoplasm of prostate documented in this encounter [facility] note* Diagnosis Malignant neoplasm of prostate (HCC)- Primary Malignant neoplasm of prostate [facility] Diagnosis Malignant neoplasm of prostate (HCC) Malignant neoplasm of prostate [facility] Diagnosis Malignant neoplasm of prostate (HCC)- Primary Malignant neoplasm of prostate [facility]* Diagnosis Malignant neoplasm of prostate (HCC)- Primary Malignant neoplasm of prostate [facility]* Diagnosis Malignant neoplasm of prostate (HCC)- Primary Malignant neoplasm of prostate documented in this [facility]* Diagnosis Malignant neoplasm of prostate (HCC)- Primary Malignant neoplasm of prostate documented in this encounter [facility] note* Diagnosis Malignant neoplasm of prostate (HCC)- Primary Malignant neoplasm of prostate [facility]* Diagnosis Malignant neoplasm of prostate (HCC)- Primary Malignant neoplasm of prostate documented in this encounter [facility] note* Diagnosis Onset Date Resolution Status Admit Date Adenocarcinoma of prostate acuteSeptember 2024 3:28pmHTN (hypertension)acuteSeptember 2024 3:28pm [facility] Work Phone: Hospital course Narrative No data available for this section [facility] Hospital Discharge instructions No data available for this section [facility] InstructionsNot on filedocumented in this encounter [facility] filed[facility] filedocumented in this encounter [facility]Not on filedocumented in this encounter [facility]Not on filedocumented in this encounter [facility] No data available for this section [facility] Reason for referral (narrative)No reason for referral information available[facility] Work Phone: Reason for visit Narrative* Diagnostic Procedure Only (Routine) - ClosedSpecialtyDiagnoses / ProceduresReferred By ContactReferred To ContactMOLECULAR & FUNCTIONAL IMAGING Diagnoses Malignant neoplasm of prostate (HCC) Procedures NM PET/CT PROSTATE WHOLE BODY IMAGING PET IMAGING CT ATTENUATION SKULL BASE [place] Kwasi Sandoval MD [address] [place] [address] [place] [address] Phone: tel: fax: Molecular Imaging [address] [place] [address] Phone: tel: Referral IDStatusReasonStart DateExpiration DateVisits RequestedVisits [id number] Auto-Generated Referral / [facility] Summary Purpose Family History No Family History Records FoundNo Family History Records FoundNo Family History Records Found No data available for this section No data available for this section No data available for this section No data available for this section No Family History Records Found No data available for this section No Family History Records FoundNo Family History Records Found No data available for this section No Family History Records FoundNo Family History Records Found Advance Directives No Advanced Directives Records Found Date ActivatedDate InactivatedComments07/20/2023 12:44 AM07/27/2023 12:29 AMDate ActivatedDate InactivatedComments07/20/2023 12:44 AM07/27/2023 12:29 AMCode Status Date ActivatedDate InactivatedCommentsFull Code07/20/2023 12:44 AM07/27/2023 12:29 AM Advance Directive Response Recorded Date/ Time Advance Directives No December 5:47pm Reason for Referral SpecialtyDiagnoses / ProceduresReferred By ContactReferred To ContactRadiology Diagnoses Parastomal hernia without obstruction or gangrene Procedures CT abdomen and pelvis with contrast Abdirashid Boss MD [address] [place] [address] Referral IDStatusReasonStart DateExpiration DateVisits RequestedVisits [id number] / ProceduresReferred By ContactReferred To Contact Diagnoses Preop testing Procedures ECG 12 lead Luis Angel Jara MD [address] [place] [address] Referral IDStatusReasonStart DateExpiration DateVisits RequestedVisits [id number] Chief Complaint and Reason for Visit Chief Complaint Admit Date 2M January 24, 2025 3:28pm Reason for Visit Admit Date Adenocarcinoma of prostate December 3:28pm HTN (hypertension) January 24, 2025 3:28pm Additional Source Comments (unrecognized sect ion and content) No Status Records FoundNo Status Records FoundNo Status Records FoundNo Status Records FoundNo Status Records FoundNo Status Records FoundNo Status Records FoundNo Status Records Found INFORMATION SOURCE (unrecogn ized section and content) DATE CREATED AUTHOR 10/04/[address] [facility] DATE CREATED AUTHOR AUTHOR'S ORGANIZ ATION 07/20/[address] [facility] DATE CREATED AUTHOR AUTHOR'S ORGANIZ ATION 02/14/2024 [facility] DATE CREATED AUTHOR AUTHOR'S ORGANIZ ATION 09/28/2024 [facility] DATE CREATED AUTHOR AUTHOR'S ORGANIZ ATION 10/03/2024 [facility] DATE CREATED AUTHOR AUTHOR'S ORGANIZ ATION 11/06/2024 [facility] DATE CREATED AUTHOR AUTHOR'S ORGANIZ ATION 11/28/2024 [facility] DATE CREATED AUTHOR AUTHOR'S ORGANIZ ATION 02/25/2025 [facility] Care Teams (unrecognized sec tion and content) Team MemberRelationshipSpecialtyStart DateEnd Date Varghese Del Cid MD [address] [place] [address] PCP - GeneralFamily Medicine01/21/24 Frida Dorman NP [address] [place] [address] Nurse Practitionermily Medicine01/21/24Team MemberRelationshipSpecialtyStart DateEnd Date Varghese Del Cid MD [address] [place] [address] PCP - GeneralFamily Medicine01/21/24 Frida Dorman, GREGORIO [address] [place] [address] [facility]01/21/24Team MemberRelationshipSpecialtyStart DateEnd Date Varghese Del Cid MD [address] [place] [address] PCP - Generalmily Medicine01/21/24 Frida Dorman, GREGORIO [address] [place] [address] Nurse Pract[facility]01/21/24Team MemberRelationshipSpecialtyStart DateEnd Date Varghese Del Cid MD [address] [place] [address] - [address] [facility]01/21/24 Frida Dorman NP [address] [place] [address] Nurse Pract[facility]01/21/24Team MemberRelationshipSpecialtyStart DateEnd Date Varghese Del Cid MD [address] [place] [address] PCP - GeneralFamily Medicine01/21/24 Frida Dorman NP [address] [facility] [place] [address] Nurse Practitionermily Medicine01/21/24Team MemberRelationshipSpecialtyStart DateEnd Date Varghese Del Cid MD [address] [place] [address] PCP - Generalmily Medicine07/21/23Team MemberRelationshipSpecialtyStart DateEnd Date Varghese Del Cid MD [address] [place] [address] PCP - Generalmily Medicine07/21/23Team MemberRelationshipSpecialtyStart DateEnd Date Varghese Del Cid MD [address] [place] [address] PCP - Generalmily Medicine07/21/23Team MemberRelationshipSpecialtyStart DateEnd Date Varghese Del Cid MD [address] [place] [address] PCP - GeneralFamily Medicine07/21/23Team MemberRelationshipSpecialtyStart DateEnd Date Varghese Del Cid MD [address] [place] [address] PCP - GeneralFamily Medicine07/21/23Team MemberRelationshipSpecialtyStart DateEnd Date Varghese Del Cid MD PCP - GeneralFamily Medicine07/21/23Team MemberRelationshipSpecialtyStart DateEnd Date Frida Dorman APRN-FILM SORTER [address] [place] [address] PCP - GeneralNurse Tcnykktydkfn02/11/24Team MemberRelationshipSpecialtyStart DateEnd Date Shaikh Manrique MD [address] [place] [address] PCP - GeneralInternal Medicine01/05/2410Team MemberRelationshipSpecialty Start DateEnd Date Varghese Del Cid MD [address] [place] [address] PCP - GeneralFamily Medicine01/21/24 Frida Dorman NP [address] [place] [address] Nurse PractitionerVan [facility]est Medical Centerly Medicine01/21/24Team MemberRelationshipSpecialtyStart DateEnd Date Varghese Del Cid MD [address] [place] [address] PCP - GeneralFamily Medicine01/21/24 Frida Dorman NP [address] [place] [address] Nurse PractitionerVan Diest Medical Centerly Medicine01/21/24Team MemberRelationshipSpecialtyStart DateEnd Date Varghese Del Cid MD [address] [place] [address] PCP - GeneralFamily Medicine01/21/24 Frida Dorman NP [address] [place] [address] Nurse PractitionerFamily Medicine01/21/24Team MemberRelationshipSpecialtyStart DateEnd Date Varghese Del Cid MD [address] [place] [address] PCP - GeneralFamily Medicine01/21/24 Frida Dorman NP [address] [place] [address] Nurse PractitionerVan Diest Medical Centerly Medicine01/21/24Team MemberRelationshipSpecialtyStart DateEnd Date Varghese Del Cid MD [address] [place] [address] PCP - GeneralFamily Medicine01/21/24 Frida Dorman NP [address] [place] [address] Nurse Practitionermily Medicine01/21/24Team MemberRelationshipSpecialtyStart DateEnd Date Varghese Del Cid MD [address] [place] [address] PCP - GeneralFamily Medicine01/21/24 Frida Dorman NP [address] [place] [address] Nurse Practitionermily Medicine01/21/24Team MemberRelationshipSpecialtyStart DateEnd Date Varghese Del Cid MD [address] [place] [address] PCP - GeneralFamily Medicine01/21/24 Frida Dorman NP [address] [place] [address] Nurse Practitionermily Medicine01/21/24Team MemberRelationshipSpecialtyStart DateEnd Date Clarissa Lawrence MD [address] [place] [address] Urology10/01/24Team MemberRelationshipSpecialtyStart DateEnd Date Clarissa Lawrence MD [address] [place] [address] Urology10/01/24Team MemberRelationshipSpecialtyStart DateEnd Date Clarissa Lawrence MD [address] [place] [address] Urology10/01/24Team MemberRelationshipSpecialtyStart DateEnd Date Varghese Del Cid MD [address] [place] [address] PCP - GeneralFamily Medicine01/21/24 Frida Dorman NP [address] [place] [address] [facility]01/21/24Team MemberRelationshipSpecialtyStart DateEnd Date Varghese Del Cid MD [address] [place] [address] PCP - GeneralFamily Medicine01/21/24 Frida Dorman, GREGORIO [address] [place] [address] [facility] Medicine01/21/24Team MemberRelationshipSpecialtyStart DateEnd Date Varghese Del Cid MD [address] [place] [address] PCP - Generalmi Medicine01/21/24 Frida Dorman NP [address] [place] [address] Nurse Pract[facility]erTaylor [facility]01/21/24Team MemberRelationshipSpecialtyStart DateEnd Date Yissel Arevalo, FILM SORTER [address] [place] [address] PCP - Generalmi Medicine11/05/24 Clarissa Lawrence MD [address] [place] [address] Urology10/01/24Team MemberRelationshipSpecialtyStart DateEnd Date Yissel Arevalo, FILM SORTER [address] [place] [address] PCP - [facility]Ken[facility] Medicine11/05/24 Clarissa Lawrence MD [address] [place] [address] Urology10/01/24Team MemberRelationshipSpecialtyStart DateEnd Date Yissel Arevalo, FILM SORTER [address] [place] [address] PCP - GeneralFamily Medicine11/05/24 Clarissa Lawrence MD [address] [place] [address] Urology10/01/24Team MemberRelationshipSpecialtyStart DateEnd Date Frida Dorman, FREIGHT LOADING SUPERVISOR-[facility] [address] [place] [address] PCP - GeneralNurse [id number]/11/24Team MemberRelationshipSpecialtyStart DateEnd Date Frida Dorman, FREIGHT LOADING SUPERVISOR-FILM SORTER [address] [facility] [place] [address] PCP - GeneralNurse Wtulmionvrfh46/11/24Team MemberRelationshipSpecialtyStart DateEnd Date Yissel Arevalo, FILM SORTER [address] [place] [address] PCP - Generalmily Medicine11/05/24 Clarissa Lawrence MD [address] [place] [address] Urology10/01/24Team MemberRelationshipSpecialtyStart DateEnd Date Yissel Arevalo, FILM SORTER [address] [place] [address] PCP - GeneralFamily Medicine11/05/24 Clarissa Lawrence MD [address] [place] [address] Urology10/01/24Team MemberRelationshipSpecialtyStart DateEnd Date [facility]Yissel mariscal, FILM SORTER [address] [place] [address] PCP - [facility]Ken[facility] Medicine11/05/24 Clarissa Lawrence MD [address] [place] [address] Urolog10/01/24Team MemberRelationshipSpecialtyStart DateEnd Date Yissel Arevalo, FILM SORTER [address] [place] [address] PCP - [facility]11/05/24 Clarissa Lawrence MD [address] [place] [address] Urolog10/01/24Team MemberRelationshipSpecialtyStart DateEnd Date Yissel Arevalo, FILM SORTER [address] [place] [address] PCP - [facility]Taylor [facility]11/05/24 Clarissa Lawrence MD [address] [place] [address] Urolog10/01/24Team MemberRelationshipSpecialtyStart DateEnd Date Yissel Arevalo, FILM SORTER [address] [place] [address] PCP - [facility]11/05/24 Clarissa Lawrence MD [address] [place] [address] Urolog10/01/24Team MemberRelationshipSpecialtyStart DateEnd Date [facility] HospitalY[facility] beck, FILM SORTER [address] [place] [address] PCP - [facility]11/05/24 Clarissa Lawrence MD [address] [place] [address] Urolog10/01/24Te MemberRelationshipSpecialtyStart DateEnd Date JedYissel beck, FILM SORTER [address] [place] [address] [facility] - [facility]11/05/24 Clarissa Lawrence MD [address] [place] [address] Urolog10/01/24Te MemberRelationshipSpecialtyStart DateEnd Date JedYissel beck, FILM SORTER [address] [place] [address] PCP - [facility]11/05/24 Clarissa Lawrence MD [address] [place] [address] Urology10/01/24Team MemberRelationshipSpecialtyStart DateEnd Date Yissel Arevalo, FILM SORTER [address] [place] [address] PCP - [facility]11/05/24 Clarissa Lawrence MD [address] [place] [address] Urology10/01/24Team MemberRelationshipSpecialtyStart DateEnd Date Yissel Arevalo, FILM SORTER [address] [place] [address] PCP - [facility]11/05/24 Clarissa Lawrence MD [address] [place] [address] Urology10/01/24Team MemberRelationshipSpecialtyStart DateEnd Date Yissel Arevalo, FILM SORTER [address] [place] [address] PCP - [facility]11/05/24 Clarissa Lawrence MD [address] [place] [address] Urology10/01/24Team MemberRelationshipSpecialtyStart DateEnd Date Yissel Arevalo, FILM SORTER [address] [place] [address] PCP - GeneralFamily Medicine11/05/24 Clarissa Lawrence MD [address] [place] [address] Urology10/01/24 Team Status: Active Member Role Status Dates Yissel Arevalo CREDIT CARD CLERK-C Primary Care Provider Active Team Status: Inactive Member Role Status Dates Yissel Arevalo CREDIT CARD CLERK-C Primary Care Provider Active Start: January 24, 2025 End: January 24, 2025Yissel Arevalo NP-CAttending ProviderActiveStart: January 24, 2025 End: January 24, 2025 Reason for Visit (unrecogniz ed section and content) ReasonCommentsPre-op ExamReasonCommentsURIReasonCommentsPost-opReasonCommentsNew PatientReasonCommentsPost-opPOST OP STAPLE REMOVAL DR L[facility]IS 07/20/23Reason CommentsEstablish CareFollow up after scopeReasonCommentsNm Pet RequestReason CommentsConsultReasonCommentsFollow-upReasonCommentsPatient EducationReason CommentsProstate CancerReasonCommentsAppointmentReasonOnset DateComments Simulation Request Form11/29/2024ReasonCommentsRadiotherapy On-treatment Visit ReasonCommentsPatient UpdateReasonCommentsLab Orders Source Comments (unrecognize d section and content) In the event this informatio n is protected by the Federal Confidentiality of Alcohol and Drug Abuse Patient Records regulations: The Federal rules restrict any use of the information to criminally investigate or prosecute any alcohol or drug abuse patient.[facility] HospitalIn the event this information is protected by the Federal Confidentiality of Alcohol and Drug Abuse Patient Records regulations: The Federal rules restrict any use of the information to criminally investigate or prosecute any alcohol or drug abuse patient.[facility] HospitalIn the event this information is protected by the Federal Confidentiality of Alcohol and Drug Abuse Patient Records regulations: The Federal rules restrict any use of the information to criminally investigate or prosecute any alcohol or drug abuse patient.[facility] HospitalIn the event this information is protected by the Federal Confidentiality of Alcohol and Drug Abuse Patient Records regulations: The Federal rules restrict any use of the information to criminally investigate or prosecute any alcohol or drug abuse patient.[facility] HospitalIn the event this information is protected by the Federal Confidentiality of Alcohol and Drug Abuse Patient Records regulations: The Federal rules restrict any use of the information to criminally investigate or prosecute any alcohol or drug abuse patient.[facility] HospitalIn the event this information is protected by the Federal Confidentiality of Alcohol and Drug Abuse Patient Records regulations: The Federal rules restrict any use of the information to criminally investigate or prosecute any alcohol or drug abuse patient.[facility] the event this information is protected by the Federal Confidentiality of Alcohol and Drug Abuse Patient Records regulations: The Federal rules restrict any use of the information to criminally investigate or prosecute any alcohol or drug abuse patient.[facility] HospitalIn the event this information is protected by the Federal Confidentiality of Alcohol and Drug Abuse Patient Records regulations: The Federal rules restrict any use of the information to criminally investigate or prosecute any alcohol or drug abuse patient.[facility] HospitalIn the event this information is protected by the Federal Confidentiality of Alcohol and Drug Abuse Patient Records regulations: The Federal rules restrict any use of the information to criminally investigate or prosecute any alcohol or drug abuse patient.[facility]In the event this information is protected by the Federal Confidentiality of Alcohol and Drug Abuse Patient Records regulations: The Federal rules restrict any use of the information to criminally investigate or prosecute any alcohol or drug abuse patient.[facility] HospitalIn the event this information is protected by the Federal Confidentiality of Alcohol and Drug Abuse Patient Records regulations: The Federal rules restrict any use of the information to criminally investigate or prosecute any alcohol or drug abuse patient.[facility] HospitalIn the event this information is protected by the Federal Confidentiality of Alcohol and Drug Abuse Patient Records regulations: The Federal rules restrict any use of the information to criminally investigate or prosecute any alcohol or drug abuse patient.[facility] HospitalIn the event this information is protected by the Federal Confidentiality of Alcohol and Drug Abuse Patient Records regulations: The Federal rules restrict any use of the information to criminally investigate or prosecute any alcohol or drug abuse patient.[facility] HospitalIn the event this information is protected by the Federal Confidentiality of Alcohol and Drug Abuse Patient Records regulations: The Federal rules restrict any use of the information to criminally investigate or prosecute any alcohol or drug abuse patient.[facility] HospitalIn the event this information is protected by the Federal Confidentiality of Alcohol and Drug Abuse Patient Records regulations: The Federal rules restrict any use of the information to criminally investigate or prosecute any alcohol or drug abuse patient.[facility] HospitalIn the event this information is protected by the Federal Confidentiality of Alcohol and Drug Abuse Patient Records regulations: The Federal rules restrict any use of the information to criminally investigate or prosecute any alcohol or drug abuse patient.[facility] HospitalIn the event this information is protected by the Federal Confidentiality of Alcohol and Drug Abuse Patient Records regulations: The Federal rules restrict any use of the information to criminally investigate or prosecute any alcohol or drug abuse patient.[facility] HospitalIn the event this information is protected by the Federal Confidentiality of Alcohol and Drug Abuse Patient Records regulations: The Federal rules restrict any use of the information to criminally investigate or prosecute any alcohol or drug abuse patient.[facility] HospitalIn the event this information is protected by the Federal Confidentiality of Alcohol and Drug Abuse Patient Records regulations: The Federal rules restrict any use of the information to criminally investigate or prosecute any alcohol or drug abuse patient.[facility] HospitalIn the event this information is protected by the Federal Confidentiality of Alcohol and Drug Abuse Patient Records regulations: The Federal rules restrict any use of the information to criminally investigate or prosecute any alcohol or drug abuse patient.[facility] HospitalIn the event this information is protected by the Federal Confidentiality of Alcohol and Drug Abuse Patient Records regulations: The Federal rules restrict any use of the information to criminally investigate or prosecute any alcohol or drug abuse patient.[facility] Goals (unrecognized section and content) Goals may be documented in a n alternate section FOR RECORDS PERTAINING TO PATIENTS WHO ARE [...] BE BASED ON THE PRIMARY CLINICAL RECORDS. [employer] [facility]. provides no warranty or guarantee of the accuracy or completeness of information in this document.
[2025-04-27 10:24] LABS: Hematocrit 43.9 % (42.0-54.0); Hemoglobin 14.5 g/dL (14.0-18.0); Immature Granulocytes Abs Auto 0.05 10^3/uL (0.00-0.03); Immature Granulocytes Pct Auto 0.7 % (0.0-0.5); Lymphocytes Absolute Auto 1.4 10^3/uL (1.2-3.8); Mean Corpuscular HGB Conc 33.0 g/dL (29.9-35.2); Mean Corpuscular Hemoglobin 32.3 pg (25.9-34.0); Mean Corpuscular Volume 97.8 fL (80.0-94.0); Platelet Count 274 10^3/uL (150-450); Red Blood Count 4.49 10^6/uL (4.70-6.10); White Blood Count 6.9 10^3/uL (4.0-11.0)
[2025-04-27 10:41] LABS: Anion Gap 12.4; Blood Urea Nitrogen 17.0 mg/dL (7.0-18.0); Calcium 10.1 mg/dL (8.5-10.1); Carbon Dioxide 32.7 mmol/L (21.0-32.0); Chloride 103 mmol/L (98-107); Estimated GFR (African America >60 (>=60 mL/min/1.73m^2); Estimated GFR (Non-African Ame >60 (>=60 mL/min/1.73m^2); Glucose 115 mg/dL (74-106); Potassium 3.1 mmol/L (3.5-5.1); Sodium 145 mmol/L (136-145)
== END 2025-04-27 09:38 | disposition home or self-care (01) ==
LOC: LAB 09:40
PROVIDERS: PCP Nurse Practitioner; Visit Provider Nurse Practitioner
DX: R31.21 Asymptomatic microscopic hematuria (principal); Z92.3 Personal history of irradiation; R73.03 Prediabetes; I10 Essential (primary) hypertension
CPT/HCPCS: 36415; 80048; 83036; 85025